=== PATIENT | female | born 1960 ===

== ENCOUNTER → 2020-03-04 09:19 | Outpatient (BNVA) | payer OTHER, SELFPAY | PROVIDERS: Visit Provider Physician Assistant | DX: Z76.89 Persons encountering health services in other specified circumstances (principal) ==

== ENCOUNTER 2020-09-15 16:52 | Emergency (ER) | payer OTHER, SELFPAY ==
--- NOTE | ~2020-09-15 | XR_ITS ---
EXAMINATION: RIGHT FOOT, LEFT FOOT CLINICAL INFORMATION: Bilateral foot pain COMPARISON: None TECHNIQUE: 3 views left foot, 3 views right foot FINDINGS: Mild pes cavum is present bilaterally. No significant arthritic changes are present. No fractures are seen. No evidence of ankle joint effusion. XR/XR foot RT min 3V IMPRESSION: No acute findings. Mild pes cavum is present
--- NOTE | ~2020-09-15 | XR_ITS ---
EXAMINATION: RIGHT FOOT, LEFT FOOT CLINICAL INFORMATION: Bilateral foot pain COMPARISON: None TECHNIQUE: 3 views left foot, 3 views right foot FINDINGS: Mild pes cavum is present bilaterally. No significant arthritic changes are present. No fractures are seen. No evidence of ankle joint effusion. XR/XR foot LT min 3V IMPRESSION: No acute findings. Mild pes cavum is present
[2020-09-15 17:21] VITALS: BP 160/64; PULSE 77; RESP 18; TEMP 36.8; O2SAT 98; BMI 28.3
--- NOTE | 2020-09-15 18:28 | ED.GENADULT ---
HPI - General Adult General Chief complaint: Extremity Injury, Lower Stated complaint: foot pain Time Seen by Provider: 09/15/20 18:02 History of Present Illness HPI narrative: Patient complains of bilateral foot pain for many many weeks worse over past few days, nursing notes said the pain is in her legs but her complaint is pain in the bottom of both feet without injury, no fever no numbness no weakness no rash Related Data Home Medications Medication Instructions Recorded Confirmed buspirone 30 mg tablet 30 mg PO BID 03/04/20 03/04/20 famotidine 20 mg tablet 20 mg PO BID 03/04/20 03/04/20 loratadine 10 mg capsule 10 mg PO DAILY 03/04/20 03/04/20 pantoprazole 40 mg tablet,delayed 40 mg PO DAILY 03/04/20 03/04/20 release trazodone 50 mg tablet 50 mg PO BEDTIME PRN 03/04/20 03/04/20 Previous Rx's Medication Instructions Recorded cyclobenzaprine 5 mg tablet 5 mg PO BEDTIME PRN 90 Days #90 tab 12/27/19 Allergies Allergy/AdvReac Type Severity Reaction Status Date / Time aspirin [ASA] Allergy Intermediate NAUSEA & Verified 09/15/20 17:43 VOMITING, stomach upset, nausea and vomiting Review of Systems Review of Systems: positive for bilateral foot pain Negatives are no fever no chills no weakness no headache no neck pain no back pain no radiating pain no numbness weakness or tingling no skin rash Yes all other systems are reviewed and are negative PMFSH Past Medical History Source: nursing notes reviewed Medical History (Updated 09/16/20 @ 00:01 by Milana Tom) Acid reflux Bloating Vocal cord anomaly Social History Social History (Updated 03/04/20 @ 13:28 by Amber Keating PA-C) Household Members Other:: alone Alcohol intake: never Advance Directives: No Advance Directives Information Provided: Yes Patient : No Current occupational status: unemployed Physical Exam Vital Signs: Vital Signs: Last Vital Signs Temp 98.2 F 09/15/20 17: Pulse 77 09/15/20 17: Resp 18 09/15/20 17: BP 160/64 H 09/15/20 17: Pulse Ox 98 09/15/20 17:21 Body Mass Index 28.3 general appearance no acute distress Head is normocephalic atraumatic Neck is supple nontender The back is supple full range of motion and nontender with no discomfort with movement The respiratory no distress Extremities full range of motion x4 The bilateral feet had tenderness on the soles of both feet, there were no wounds no redness no evidence of infection no discharge there is full range of motion in toes and ankle there is no swelling Course Course Course Narrative: x-rays of bilateral feet did not reveal any acute findings patient is advised she may have plantar fasciitis and to follow with a [employer] for further evaluation Discharge Plan Discharge Clinical Impression: Bilateral plantar fasciitis Patient Disposition: Home, Self-Care Additional Instructions: Follow with [employer] for further evaluations X-rays were normal Exam of the feet did not show any infections or wounds Return any time any worse condition or concerns You may need a referral from primary care doctor for [employer] visit Prescriptions: No Action cyclobenzaprine 5 mg tablet 5 mg PO BEDTIME PRN (Reason: muscle spasm) 90 Days Qty: 90 RF: 1 trazodone 50 mg tablet 50 mg PO BEDTIME PRNRF: 0 famotidine 20 mg tablet 20 mg PO BID RF: 0 pantoprazole 40 mg tablet,delayed release (DR/EC) 40 mg PO DAILY RF: 0 buspirone 30 mg tablet 30 mg PO BID RF: 0 loratadine 10 mg capsule 10 mg PO DAILY RF: 0 Referrals: Patrick Dean [Physician] - 2 days (Possible bilateral plantar fasciitis) Interventions: ED Discharge Assessment Last Done: 09/15/20 19:55 Discharge Date/Time: 09/15/20 19:56
== END 2020-09-15 19:56 | disposition home or self-care (01) ==
PROVIDERS: Emergency Provider Emergency Medicine; PCP Internal Medicine
DX: M72.2 Plantar fascial fibromatosis (principal)
CPT/HCPCS: 73630; 99283; 99284

== ENCOUNTER → 2020-10-13 14:42 | Outpatient (BNVA) | payer OTHER, SELFPAY | PROVIDERS: PCP Internal Medicine; Visit Provider Student in an Organized Health Care Education/Training Program | DX: M79.7 Fibromyalgia (principal) | CPT/HCPCS: 99212 ==

== ENCOUNTER 2020-10-21 18:34 | Emergency (ER) | payer OTHER, SELFPAY ==
--- NOTE | ~2020-10-21 | XR_ITS ---
EXAMINATION: XR CHEST CLINICAL INFORMATION: Cough and shortness of breath COMPARISON: 10/22/2019 TECHNIQUE: 2 views of the chest were obtained. FINDINGS: No significant abnormality is noted involving the heart, lungs, mediastinum, bony thorax or soft tissues. XR/XR chest 2V IMPRESSION: Unremarkable examination.
[2020-10-21 18:50] VITALS: BP 152/75; PULSE 75; RESP 18; TEMP 36.8; O2SAT 100; BMI 27.4
[2020-10-21 19:14] LABS: COVID-19 Test Negative (Negative)
--- NOTE | 2020-10-21 20:31 | ED.URI ---
HPI - URI/Sore Throat General Chief Complaint: Upper Respiratory Symptoms Stated Complaint: Cough/asthma Time Seen by Provider: 10/21/20 19:58 Source: patient Mode of arrival: ambulatory Limitations: no limitations History of Present Illness HPI Narrative: 59 y/o female with history of asthma, fibromyalgia, GERD, who presents to the ER wtih 3 days of sore throat, dry cough, and nasal congestion. She is fully vaccinated against COVID-19. She has no fever or chills. She has mild SOB but no HURT or chest pain. She has no known sick contacts. MD elicited complaint: cough, sore throat and nasal congestion Onset (ago): day(s) (3) Consistency: intermittent Severity: moderate Description of mucous: clear and watery Able to tolerate fluids by mouth: Yes Exacerbating factors: nothing Relieving factors: OTC cold medicine Associated symptoms: headache, nasal congestion, sore throat, cough and shortness of breath Treatments prior to arrival: none Related Data Home Medications Medication Instructions Recorded Confirmed buspirone 30 mg tablet 30 mg PO BID 03/04/20 03/04/20 famotidine 20 mg tablet 20 mg PO BID 03/04/20 03/04/20 loratadine 10 mg capsule 10 mg PO DAILY 03/04/20 03/04/20 pantoprazole 40 mg tablet,delayed 40 mg PO DAILY 03/04/20 03/04/20 release trazodone 50 mg tablet 50 mg PO BEDTIME PRN 03/04/20 03/04/20 risperidone 2 mg tablet (Risperdal) 2 mg PO DAILY 10/13/20 Previous Rx's Medication Instructions Recorded cyclobenzaprine 5 mg tablet 5 mg PO BEDTIME PRN 90 Days #90 tab 10/13/20 hydrocodone-homatropine 5 mg-1.5 5 ml PO Q6H PRN #60 ml 10/21/20 mg/5 mL (5 mL) oral syrup (Hycodan) Allergies Allergy/AdvReac Type Severity Reaction Status Date / Time aspirin [ASA] Allergy Intermediate NAUSEA & Verified 10/21/20 18:50 VOMITING, stomach upset, nausea and vomiting Review of Systems Review of Systems: Constitutional: No Fever, No Chills ENT/Mouth: + sore throat, + Rhinorrhea, No Swallowing Difficulty Cardiovascular: No Chest Pain, + SOB, No Orthopnea, No Edema Respiratory: + Cough, No Sputum, No Wheezing, No dyspnea Gastrointestinal: No Nausea, No Vomiting, No Diarrhea, No abdominal Pain Musculoskeletal: No joint pain, No Myalgias Skin: No Skin Lesions, No rash Neuro: No Weakness, No Numbness, No Dizziness, + Headache Heme/Lymph: No Bruising, No Lymphadenopathy PMFSH Past Medical History Medical History Acid reflux Asthma Bloating Vocal cord anomaly Social History Social History (Updated 10/13/20 @ 14:54 by Mio Petersen LPN) Household Members Other:: alone Alcohol intake: never Patient Tobacco Use Status: Former Tobacco user Tobacco use type: Cigarette Years Smoked: quit 12 years ago Advance Directives: No Advance Directives Information Provided: Yes Patient : No Current occupational status: unemployed Physical Exam Vital Signs: Vital Signs: Last Vital Signs Temp 98.3 F 10/21/20 18:50 Pulse 75 10/21/20 18:50 Resp 18 10/21/20 18:50 BP 152/75 H 10/21/20 18:50 Pulse Ox 100 10/21/20 18:50 Body Mass Index 27.4 Appearance: Alert. Oriented X3. No acute distress. Eyes: Pupils equal, round and reactive to light. ENT: Posterior oropharynx with moderate generalized erythema, tonsils are enlarged without exudate. Uvula midlinel. Nasal congestion noted with erythematous nasal turbinates. Neck: Normal inspection. Neck supple. CVS: Normal heart rate and rhythm. Pulses normal. Respiratory: No respiratory distress. Breath sounds normal. Skin: Skin warm and dry. Normal skin color. Normal skin turgor. No rashes. Extremities: No lower extremity edema. Neuro: Oriented X 3. No motor deficit. No sensory deficit. Course Course Course Narrative: 59 y/o female presenting with 3 days of URI symptoms. Vitals are stable with SpO2 100%. Lungs are clear on exam with no dyspnea. CXR is clear. COVID and Strep are negative. Clinical presentation is consistent with acute viral syndrome. Discussed treatment and supportive care. She is stable for d/c home with antitussive and OTC cold/flu medications. F/u with PCP recommended. MDM - URI/Sore Throat Lab Data Labs: Lab Results 10/21/20 10/21/20 Range/Units 18:56 20:29 COVID-19 (NAILA) Negative (Negative) COVID-19 Clin Com See Note S. pyogenes GrpA XAVIER Negative (Negative) Critical Care Time Critical Care Time Critical Care Time: No Discharge Plan Discharge Clinical Impression: Viral infection Patient Disposition: Home, Self-Care Instructions: Viral Syndrome (ED) Additional Instructions: Your COVID test and Strep tests were negative. Your chest x-ray was normal. Your symptoms are most likely viral. Recommend rest, drink plenty of fluids. Use warm salt water gargles several times per day for sore throat. Take over the counter cold/flu medications as needed for your symptoms. Take Tylenol and/or Motrin as needed for fevers and body aches. Follow up with your doctor this week. If you shortness of breath worsens , if you develop difficulty breathing or any other concerning symptom come back to the ER for further evaluation. Prescriptions: New hydrocodone-homatropine [Hycodan] 5-1.5 mg/5 mL (5 mL) syrup 5 ml PO Q6H PRN (Reason: cough) Qty: 60 RF: 0 No Action trazodone 50 mg tablet 50 mg PO BEDTIME PRNRF: 0 famotidine 20 mg tablet 20 mg PO BID RF: 0 pantoprazole 40 mg tablet,delayed release (DR/EC) 40 mg PO DAILY RF: 0 buspirone 30 mg tablet 30 mg PO BID RF: 0 loratadine 10 mg capsule 10 mg PO DAILY RF: 0 risperidone [Risperdal] 2 mg tablet 2 mg PO DAILY RF: 0 cyclobenzaprine 5 mg tablet 5 mg PO BEDTIME PRN (Reason: muscle spasm) 90 Days Qty: 90 RF: 3
[2020-10-21 20:47] LABS: IDNOW Serial# 08D9AD1C; Strep A Nucleic Acid Negative (Negative)
== END 2020-10-21 21:22 | disposition home or self-care (01) ==
PROVIDERS: Physician Assistant; Emergency Provider Emergency Medicine Emergency Medical Services; PCP Internal Medicine
DX: B34.9 Viral infection, unspecified (principal); Z20.822 Contact with and (suspected) exposure to COVID-19; J02.9 Acute pharyngitis, unspecified; R06.02 Shortness of breath
CPT/HCPCS: 36415; 71046; 87635; 87651; 99283

== ENCOUNTER 2021-01-04 13:41 | Outpatient (REF) | payer OTHER, SELFPAY ==
[2021-01-04 14:03] LABS: COVID-19 Test Negative (Negative)
== END 2021-01-04 13:42 | disposition home or self-care (01) ==
LOC: HO.LAB 13:41
PROVIDERS: PCP Internal Medicine; Visit Provider Internal Medicine
DX: Z20.822 Contact with and (suspected) exposure to COVID-19 (principal)
CPT/HCPCS: 36415; 87635; C9803

== ENCOUNTER 2021-03-27 12:33 | Emergency (ER) | payer OTHER, SELFPAY ==
[2021-03-27 14:07] VITALS: BP 161/70; PULSE 65; RESP 18; TEMP 36.6; O2SAT 96; BMI 27.4
[2021-03-27 14:48] LABS: Appearance Urine CLEAR; Color Urine YELLOW; Glucose Urine UA NEG (NEG); Leukocyte Esterase Urine NEG (NEG); Nitrite Urine NEG (NEG); Specific Gravity - Urine >= 1.030 (1.005-1.025); Urine Blood NEG (NEG); Urine Ketones NEG (NEG); Urine Protein NEG (NEG-TRACE)
[2021-03-27 17:13] VITALS: BP 154/74; PULSE 67; TEMP 37; O2SAT 97
--- NOTE | 2021-03-27 17:13 | ED_ITS ---
HPI - Female Genitourinary General Chief complaint: Urogenital-Female Stated complaint: groin pain Time Seen by Provider: 03/27/21 17:13 Source: patient Mode of arrival: ambulatory Limitations: no limitations History of Present Illness HPI Narrative: Patient has been urinating frequently nondiabetic for last 4 days no burning sensation no flank pain no fever no chills no blood in the urine patient also has history of constipation now complaining of rectal pain with history of hemorrhoids also no bleeding Related Data Home Medications Medication Instructions Recorded Confirmed buspirone 30 mg tablet 30 mg PO BID 03/04/20 03/04/20 famotidine 20 mg tablet 20 mg PO BID 03/04/20 03/04/20 loratadine 10 mg capsule 10 mg PO DAILY 03/04/20 03/04/20 pantoprazole 40 mg tablet,delayed 40 mg PO DAILY 03/04/20 03/04/20 release trazodone 50 mg tablet 50 mg PO BEDTIME PRN 03/04/20 03/04/20 risperidone 2 mg tablet (Risperdal) 2 mg PO DAILY 10/13/20 Previous Rx's Medication Instructions Recorded cyclobenzaprine 5 mg tablet 5 mg PO BEDTIME PRN 90 Days #90 tab 10/13/20 hydrocodone-homatropine 5 mg-1.5 5 ml PO Q6H PRN #60 ml 10/21/20 mg/5 mL (5 mL) oral syrup (Hycodan) docusate sodium 100 mg capsule 200 mg PO DAILY #60 cap 03/27/21 (Colace) hydrocortisone acetate 25 mg 25 mg CO BID #12 ea 03/27/21 rectal suppository (Anusol-HC) polyethylene glycol 3350 17 17 g PO DAILY #510 g 03/27/21 gram/dose oral powder (Miralax) Allergies Allergy/AdvReac Type Severity Reaction Status Date / Time aspirin [ASA] Allergy Intermediate NAUSEA & Verified 03/27/21 14:06 VOMITING, stomach upset, nausea and vomiting Review of Systems Review of Systems: Yes all other systems are reviewed and are negative PMFSH Past Medical History Medical History Acid reflux Asthma Bloating Vocal cord anomaly Social History Social History Household Members Other:: alone Alcohol intake: never Patient Tobacco Use Status: Former Tobacco user Tobacco use type: Cigarette Years Smoked: quit 12 years ago Advance Directives: No Advance Directives Information Provided: Yes Current occupational status: unemployed Physical Exam Vital Signs: Vital Signs: Last Vital Signs Temp 98.6 F 03/27/21 17:13 Pulse 67 03/27/21 17:13 Resp 18 03/27/21 14:07 BP 154/74 H 03/27/21 17:13 Pulse Ox 97 03/27/21 17:13 BMI result Body Mass Index 27.4 Appearance: Alert. Oriented X3. No acute distress. ENT: Pharynx normal. Oral Mucosa moist Neck: Normal inspection. Neck supple. CVS: Normal heart rate and rhythm. Pulses normal. Respiratory: No respiratory distress. Equal air entry bilateral, Abdomen: Soft and nontender. Bowel sounds are present, no mass palpable, no CVA tenderness rectal: Nonbleeding internal hemorrhoid no tenderness Neuro: Oriented X 3. MDM - Female Genitourinary MDM Narrative Medical decision making narrative: Patient urine is negative for UTI a nondiabetic POCs : 88 , rectal exam showed internal hemorrhoids nonbleeding with history of constipation discharge patient home on stool softener and under source positive Lab Data Attestation: I reviewed the patient's lab results. Labs: Lab Results 03/27/21 Range/Units 14:34 Urine Color YELLOW Urine Appearance CLEAR Urine pH 6.0 (5.0-8.0) Ur Specific [place] >= 1.030 H (1.005-1.025) Urine Protein NEG (NEG-TRACE) MG/DL Urine Glucose (UA) NEG (NEG) MG/DL Urine Ketones NEG (NEG) MG/DL Urine Blood NEG (NEG) Urine Nitrite NEG (NEG) Ur Leukocyte Esterase NEG (NEG) Discharge Plan Discharge Clinical Impression: Hemorrhoids, internal Patient Disposition: Home, Self-Care Instructions: Hemorrhoids (ED) Additional Instructions: Avoid constipation take stool softener as prescribed Suppositories for hemorrhoids Prescriptions: New hydrocortisone acetate [Anusol-HC] 25 mg suppository 25 mg CO BID Qty: 12 RF: 0 docusate sodium [Colace] 100 mg capsule 200 mg PO DAILY Qty: 60 RF: 0 polyethylene glycol 3350 [Miralax] 17 gram/dose powder 17 g PO DAILY Qty: 510 RF: 0 No Action hydrocodone-homatropine [Hycodan] 5-1.5 mg/5 mL (5 mL) syrup 5 ml PO Q6H PRN (Reason: cough) Qty: 60 RF: 0 trazodone 50 mg tablet 50 mg PO BEDTIME PRNRF: 0 famotidine 20 mg tablet 20 mg PO BID RF: 0 pantoprazole 40 mg tablet,delayed release (DR/EC) 40 mg PO DAILY RF: 0 buspirone 30 mg tablet 30 mg PO BID RF: 0 loratadine 10 mg capsule 10 mg PO DAILY RF: 0 risperidone [Risperdal] 2 mg tablet 2 mg PO DAILY RF: 0 cyclobenzaprine 5 mg tablet 5 mg PO BEDTIME PRN (Reason: muscle spasm) 90 Days Qty: 90 RF: 3
[2021-03-27 17:30] LABS: Glucose, Whole Blood 88 mg/dL (60-115)
== END 2021-03-27 18:03 | disposition home or self-care (01) ==
PROVIDERS: Emergency Provider Internal Medicine; PCP Internal Medicine
DX: K64.8 Other hemorrhoids (principal); R10.30 Lower abdominal pain, unspecified; Z79.899 Other long term (current) drug therapy
CPT/HCPCS: 81003; 82947; 99283

== ENCOUNTER 2021-04-04 16:16 | Emergency (ER) | payer OTHER, SELFPAY ==
--- NOTE | ~2021-04-04 | CT_ITS ---
EXAMINATION: CT ABDOMEN AND PELVIS WITH CONTRAST CLINICAL INFORMATION: Lower abdominal and back pain COMPARISON: CT abdomen pelvis 09/10/2018 TECHNIQUE: Multidetector volumetric images were obtained from the superior aspect of the liver through the pubic symphysis following administration 85 mL of Omnipaque 350 intravenous contrast. Sagittal and coronal reformatted images were obtained on the technologist's workstation. Oral contrast: No This CT examination was performed using dose optimization techniques as appropriate, variously including the following: *Automated exposure control *Adjustment of mA and/or kV according to patient size (this includes techniques or standardized protocols for targeted exams where dose is matched to indication/reason for exam; i.e. extremities or head) *Use of iterative reconstruction technique DLP: 512 mGy-cm FINDINGS: LUNG BASES: Calcified granuloma in the right lung base. ABDOMINAL AND PELVIC WALL: Small fat-containing umbilical hernia. LIVER AND BILIARY TREE: Unremarkable GALLBLADDER: Unremarkable PANCREAS: Unremarkable SPLEEN: Unremarkable ADRENAL GLANDS: Unremarkable. KIDNEYS AND URETERS: Unremarkable. UPPER GASTROINTESTINAL TRACT: Small hiatal hernia. VASCULAR: Unremarkable. LYMPH NODES: No lymphadenopathy. BLADDER: Unremarkable PELVIC VISCERA: 2.7 cm unilocular right ovarian cyst, decreased in size from 2018 where it measured 3.1 cm, almost certainly benign. Status post hysterectomy. LOWER GASTROINTESTINAL TRACT: Colonic diverticulosis. In the left aspect of the pelvis is subtle symmetric thickening of the fascia with questionable infiltration of the pericolonic fat abutting the sigmoid colon, however not significantly changed from prior. No organized fluid collection. No extraluminal air. Normal appendix. OSSEOUS STRUCTURES: Unremarkable CT/CT abdomen pelvis w con IMPRESSION: Colonic diverticulosis. In the left aspect of the pelvis is subtle symmetric thickening of the fascia with questionable infiltration of the pericolonic fat abutting the sigmoid colon, however not significantly changed from prior. Differential considerations could include a subtle mild uncomplicated diverticulitis or sequelae of postoperative change as there is evidence of prior hysterectomy. Recommend correlation with clinical symptoms. 2.7 cm unilocular right ovarian cyst, decreased in size from 2018 where it measured 3.1 cm, almost certainly benign. No follow-up imaging recommended.
[2021-04-04 16:29] VITALS: BP 153/72; PULSE 74; RESP 16; TEMP 37; O2SAT 100; BMI 27.4
--- NOTE | 2021-04-04 19:56 | ED_ITS ---
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 Pain started about 2 weeks ago, patient was evaluated by her PCP and in the emergency department about week ago patient was prescribed amoxicillin by her PCP for unclear reason, and was diagnosed with noncomplicated internal hemorrhoid a week ago in the emergency department, symptoms started about 2 weeks ago, with no improvement of the pain, describes the pain as constant and severe for 10/10, dull aching, pain is localized to the low abdomen and the lower back and her rectum, patient been having soft stool with no blood in it, no dysuria or frequency urination. The only surgical history is hysterectomy. Related Data Home Medications Medication Instructions Recorded Confirmed buspirone 30 mg tablet 30 mg PO BID 03/04/20 03/04/20 famotidine 20 mg tablet 20 mg PO BID 03/04/20 03/04/20 loratadine 10 mg capsule 10 mg PO DAILY 03/04/20 03/04/20 pantoprazole 40 mg tablet,delayed 40 mg PO DAILY 03/04/20 03/04/20 release trazodone 50 mg tablet 50 mg PO BEDTIME PRN 03/04/20 03/04/20 risperidone 2 mg tablet (Risperdal) 2 mg PO DAILY 10/13/20 Previous Rx's Medication Instructions Recorded cyclobenzaprine 5 mg tablet 5 mg PO BEDTIME PRN 90 Days #90 tab 10/13/20 hydrocodone-homatropine 5 mg-1.5 5 ml PO Q6H PRN #60 ml 10/21/20 mg/5 mL (5 mL) oral syrup (Hycodan) docusate sodium 100 mg capsule 200 mg PO DAILY #60 cap 03/27/21 (Colace) hydrocortisone acetate 25 mg 25 mg [place] BID #12 ea 03/27/21 rectal suppository (Anusol-HC) polyethylene glycol 3350 17 17 g PO DAILY #510 g 03/27/21 gram/dose oral powder (Miralax) Allergies Allergy/AdvReac Type Severity Reaction Status Date / Time aspirin [ASA] Allergy Intermediate NAUSEA & Verified 03/27/21 14:06 VOMITING, stomach upset, nausea and vomiting Review of Systems Review of Systems: All other systems are reviewed and are negative Constitutional: Reports as per HPI and Reports no additional constitutional complaints Eyes: Reports as per HPI and Reports no additional eye complaints Reports system reviewed and no additional complaints, except as documented Cardiovascular: Reports as per HPI and Reports no additional cardiovascular complaints Respiratory: Reports as per HPI and Reports no additional respiratory complaints Gastrointestinal: Reports as per HPI and Reports no additional gastrointestinal complaints Genitourinary: Reports no additional female genitourinary complaints Musculoskeletal: Reports no additional musculoskeletal complaints Skin/Breast: Reports system reviewed and no additional complaints, except as docu Psychiatric: Reports no additional psychiatric complaints Endocrine: Reports no additional endocrine complaints Hematologic/Lymphatic: Reports no additional hematologic/lymphatic complaints Allergic/Immunologic: Reports no additional allergic/immunologic complaints Reports system reviewed and no additional complaints, except as documented and Reports Abnormal speech present [facility] Past Medical History Medical History Acid reflux Asthma Bloating Vocal cord anomaly Social History Social History Household Members Other:: alone Alcohol intake: never Patient Tobacco Use Status: Former Tobacco user Tobacco use type: Cigarette Years Smoked: quit 12 years ago Advance Directives: No Advance Directives Information Provided: No Patient : No Current occupational status: unemployed Physical Exam Vital Signs: Vital Signs: Last Vital Signs Temp 98.6 F 04/04/21 16:29 Pulse 74 04/04/21 16:29 Resp 16 04/04/21 16:29 BP 153/72 H 04/04/21 16:29 Pulse Ox 100 04/04/21 16:29 BMI result Body Mass Index 27.4 Vital signs have been reviewed as appeared to be correct. Blood pressure normal. Heart rate normal. Respiration rate normal. Temperature normal. Oxygen saturation normal. Appearance: Alert. Oriented X3. No acute distress. Head: Normal external exam. Normocephalic. Atraumatic. No Francis signs noted. No raccoon eyes noted Eyes: PERRLA. EOMI. Conjunctiva and sclera normal. Eyelids normal. ENT: TM's Normal. Pharynx normal. Uvula midline. Moist mucous membranes. No trismus noted. No drooling noted. No muffled voice noted. Neck: Normal inspection. Neck supple. FROM. No adenopathy. Thyroid Normal. No meningeal signs. No neck mass noted. CVS: Normal heart rate and rhythm. Heart sound normal. No murmurs noted. Pulses normal throughout. Respiratory: No respiratory distress. Painless inspiration. Breath sounds normal. No wheezes/rales/rhonchi noted. Chest nontender. No accessory muscle usage noted or decreased air movement noted. Abdomen: Soft and nontender. Bowel sounds normal in all 4 quadrants. No distention noted. No organomegaly noted. No visible injury noted. Back: No CVA tenderness. Full range of motion noted. Skin: Skin warm and dry. Normal skin color. Normal skin turgor. No rashes/lesions/lacerations noted. Extremities: No lower extremity edema. Extremities exhibit normal range of motion. Extremities nontender. Neuro: Oriented X 3. Cranial nerve exam: II-XII are grossly intact No motor deficit. No sensory deficit. Reflexes normal. Course Course Course Narrative: Assessment and plan. 60-year-old female came in with lower abdominal/low back/rectal pain for 2 weeks, patient has been evaluated by her PCP and in the emergency room twice, patient had blood workup and CT scan of the abdomen pelvis shows no acute pathology may be questionable subtle diverticulitis which is very unlikely patient with normal WBCs, and patient already is on Augmentin by her PCP. Patient was instructed to follow-up with her resource recovery specialist may be to schedule colonoscopy. MDM - Female Genitourinary Medical Records Attestation: I reviewed the patient's medical records. Lab Data Attestation: I reviewed the patient's lab results. Result diagrams: 04/04/21 20:39 04/04/21 20:39 Labs: Lab Results 04/04/21 04/04/21 04/04/21 Range/Units 20:39 20:39 21:50 WBC 7.4 (4.8-10.8) X10*3/uL RBC 4.34 (4.20-5.50) X10*6/uL Hgb 13.1 (12.0-16.0) g/dl Hct 39.5 (37.0-47.0) % MCV 91.0 (80.0-98.0) fL MCH 30.2 (27.0-33.0) pg MCHC 33.2 (31.0-35.0) g/dl RDW 13.2 (11.0-16.0) % Plt Count 269 (160-400) X10*3/uL MPV 10.0 (9.4-12.3) fL Immature Gran % (Auto) 0.3 (0.0-0.4) % Neut % (Auto) 50.2 (45-73) % Lymph % (Auto) 34.6 (20-40) % Prentiss % (Auto) 11.2 H (2-11) % Eos % (Auto) 3.2 (0-4) % Baso % (Auto) 0.5 (0-2) % Lymph # (Auto) 2.6 (1.2-4.9) X10*3/uL Prentiss # (Auto) 0.8 (0.1-1.2) X10*3/uL Eos # (Auto) 0.2 (0.0-0.4) X10*3/uL Baso # (Auto) 0.0 (0.0-0.2) X10*3/uL Abs Immat Gran (auto) 0.02 (0.00-0.03) X10*3/uL Absolute Neuts (auto) 3.7 (2.0-8.3) x10*3/uL Absolute Nucleated RBC 0.000 (0.0-0.012) X10*3/uL Nucleated RBC % (auto) 0.0 (0.0-0.2) /100WBC Sodium 140 (135-145) mmol/L Potassium 4.3 (3.3-5.1) mmol/L Chloride 105 (96-108) mmol/L Carbon Dioxide 29 (22-29) mmol/L Anion Gap 10 L (12-20) BUN 13 (9-16) mg/dL Creatinine 0.82 (0.5-1.4) mg/dL Estim Creat Clear Calc 68.6 Estimated GFR > 60 Random Glucose 89 (60-115) mg/dL Calcium 9.7 (8.4-10.2) mg/dL Total Bilirubin < 0.2 (0.0-1.0) mg/dL Direct Bilirubin < 0.2 (0.0-0.5) mg/dL AST 21 (5-31) U/L ALT 25 (0-31) U/L Alkaline Phosphatase 92 (39-117) U/L Total Protein 8.0 (6.5-8.0) g/dL Albumin 4.1 (3.5-5.0) g/dL Lipase 58 (8-78) U/L Urine Color YELLOW Urine Appearance CLEAR Urine pH 6.0 (5.0-8.0) Ur Specific Molino 1.025 (1.005-1.025) Urine Protein NEG (NEG-TRACE) MG/DL Urine Glucose (UA) NEG (NEG) MG/DL Urine Ketones NEG (NEG) MG/DL Urine Blood 1+ H (NEG) Urine Nitrite NEG (NEG) Ur Leukocyte Esterase NEG (NEG) Urine RBC 1-4 (0) /HPF Urine WBC 0-2 (0-4) /HPF Ur Squamous Epith Cells TRACE /LPF Urine Bacteria NONE /LPF Urine Mucus TRACE /LPF Imaging Data CT scan - abdomen: Attestation: I personally reviewed and interpreted this imaging study as follows: Radiologist's impression: Colonic diverticulosis. In the left aspect of the pelvis is subtle symmetric thickening of the fascia with questionable infiltration of the pericolonic fat abutting the sigmoid colon, however not significantly changed from prior. Differential considerations could include a subtle mild uncomplicated diverticulitis or sequelae of postoperative change as there is evidence of prior hysterectomy. Recommend correlation with clinical symptoms. ? 2.7 cm unilocular right ovarian cyst, decreased in size from 2018 where it measured 3.1 cm, almost certainly benign. No follow-up imaging recommended. Discharge Plan Discharge Clinical Impression: Back pain, Fibromyalgia Patient Disposition: Home, Self-Care Instructions: Back Pain (ED) Prescriptions: No Action hydrocodone-homatropine [Hycodan] 5-1.5 mg/5 mL (5 mL) syrup 5 ml PO Q6H PRN (Reason: cough) Qty: 60 RF: 0 hydrocortisone acetate [Anusol-HC] 25 mg suppository 25 mg [place] BID Qty: 12 RF: 0 docusate sodium [Colace] 100 mg capsule 200 mg PO DAILY Qty: 60 RF: 0 polyethylene glycol 3350 [Miralax] 17 gram/dose powder 17 g PO DAILY Qty: 510 RF: 0 trazodone 50 mg tablet 50 mg PO BEDTIME PRNRF: 0 famotidine 20 mg tablet 20 mg PO BID RF: 0 pantoprazole 40 mg tablet,delayed release (DR/EC) 40 mg PO DAILY RF: 0 buspirone 30 mg tablet 30 mg PO BID RF: 0 loratadine 10 mg capsule 10 mg PO DAILY RF: 0 risperidone [Risperdal] 2 mg tablet 2 mg PO DAILY RF: 0 cyclobenzaprine 5 mg tablet 5 mg PO BEDTIME PRN (Reason: muscle spasm) 90 Days Qty: 90 RF: 3 Referrals: Daphne Almanza MD [Primary Care Provider] - 2 days
[2021-04-04 20:43] LABS: MANUAL DIFF FLAG NO
[2021-04-04 20:45] LABS: Basophils Percent Auto 0.5 % (0-2); Eosinophils Absolute Auto 0.2 X10*3/uL (0.0-0.4); Eosinophils Percent Auto 3.2 % (0-4); Hematocrit 39.5 % (37.0-47.0); Hemoglobin 13.1 g/dl (12.0-16.0); Imm Gran Abs Auto 0.02 X10*3/uL (0.00-0.03); Imm Gran Pct Auto 0.3 % (0.0-0.4); Lymphocytes Absolute Auto 2.6 X10*3/uL (1.2-4.9); Lymphocytes Percent Auto 34.6 % (20-40); Mean Corpuscular HGB Conc 33.2 g/dl (31.0-35.0); Mean Corpuscular Hemoglobin 30.2 pg (27.0-33.0); Monocytes Absolute Auto 0.8 X10*3/uL (0.1-1.2); Monocytes Percent Auto 11.2 % (2-11); Neutrophils Absolute Auto 3.7 x10*3/uL (2.0-8.3); Neutrophils Percent Auto 50.2 % (45-73); Platelet Count 269 X10*3/uL (160-400); Red Blood Count 4.34 X10*6/uL (4.20-5.50); Red Cell Distribution Width 13.2 % (11.0-16.0); White Blood Count 7.4 X10*3/uL (4.8-10.8)
[2021-04-04 21:18] LABS: Alanine Aminotransferase 25 U/L (0-31); Albumin Level 4.1 g/dL (3.5-5.0); Alkaline Phosphatase 92 U/L (39-117); Anion Gap 10 (12-20); Aspartate Amino Transferase 21 U/L (5-31); Bilirubin Direct < 0.2 mg/dL (0.0-0.5); Bilirubin Total < 0.2 mg/dL (0.0-1.0); Blood Urea Nitrogen 13 mg/dL (9-16); Calcium 9.7 mg/dL (8.4-10.2); Carbon Dioxide 29 mmol/L (22-29); Chloride 105 mmol/L (96-108); Creatinine Clr Calc Pharmacy 68.6; Estimated Glomerular Filt Rate > 60; Glucose Random 89 mg/dL (60-115); Lipase 58 U/L (8-78); Potassium 4.3 mmol/L (3.3-5.1); Sodium 140 mmol/L (135-145)
[2021-04-04 21:58] LABS: Appearance Urine CLEAR; Color Urine YELLOW; Glucose Urine UA NEG (NEG); Leukocyte Esterase Urine NEG (NEG); Nitrite Urine NEG (NEG); Specific Gravity - Urine 1.025 (1.005-1.025); UACC Culture Trigger NO; Urine Blood 1+ (NEG); Urine Ketones NEG (NEG); Urine Protein NEG (NEG-TRACE)
[2021-04-04] MEDS: iohexoL 350 MG/ML 100 ML INFUS..BTL IV (22:08)
[2021-04-04 22:17] LABS: Mucus Urine TRACE /LPF; Squamous Epithelial Cell Urine TRACE /LPF; WBC Urine 0-2 /HPF (0-4)
[2021-04-04 23:23] VITALS: BP 147/77; PULSE 60; RESP 16; O2SAT 98
== END 2021-04-04 23:26 | disposition home or self-care (01) ==
PROVIDERS: Emergency Provider Emergency Medicine; PCP Internal Medicine
DX: M54.50 Low back pain, unspecified (principal); M79.7 Fibromyalgia; F17.210 Nicotine dependence, cigarettes, uncomplicated; Z71.6 Tobacco abuse counseling; Z79.899 Other long term (current) drug therapy
CPT/HCPCS: 36415; 74177; 80048; 80076; 81001; 83690; 85025; 99284; Q9967

== ENCOUNTER 2021-05-26 22:23 | Emergency (ER) | payer OTHER, SELFPAY ==
[2021-05-26 23:05] VITALS: BP 144/60; PULSE 60; RESP 18; TEMP 36.8; O2SAT 99; BMI 27.4
--- NOTE | 2021-05-26 23:26 | ED_ITS ---
HPI - General Adult General Chief complaint: General Medical Stated complaint: rectal pain Time Seen by Provider: 05/26/21 23:10 Source: patient and certified court interpreter Mode of arrival: ambulatory Limitations: no limitations and language barrier History of Present Illness HPI narrative: Patient is a 60 year old female presenting to the emergency department today with hemorrhoid pain. Patient states that she has been dealing with hemorrhoid pain consistently and can't get into her GI doctor until June. Patient states that she has been cleaning it in the bath tub and is concerned that something needs to be done with it. Patient denies any dizziness, lightheadedness, abdominal pain, nausea, vomiting, fever, chills, blurry vision, double vision, loss of vision, chest pain, difficulty breathing, shortness of breath, back pain, night sweats, pain with urination, increased urinary frequency, increased urinary urgency, blood in her urine or stool, syncope or a near syncopal episode, recent trauma or falls, bowel incontinence, bladder incontinence, bowel retention, bladder retention, or any other complaints at this time. Related Data Home Medications Medication Instructions Recorded Confirmed buspirone 30 mg tablet 30 mg PO BID 03/04/20 03/04/20 famotidine 20 mg tablet 20 mg PO BID 03/04/20 03/04/20 loratadine 10 mg capsule 10 mg PO DAILY 03/04/20 03/04/20 pantoprazole 40 mg tablet,delayed 40 mg PO DAILY 03/04/20 03/04/20 release trazodone 50 mg tablet 50 mg PO BEDTIME PRN 03/04/20 03/04/20 risperidone 2 mg tablet (Risperdal) 2 mg PO DAILY 10/13/20 Previous Rx's Medication Instructions Recorded cyclobenzaprine 5 mg tablet 5 mg PO BEDTIME PRN 90 Days #90 tab 10/13/20 hydrocodone-homatropine 5 mg-1.5 5 ml PO Q6H PRN #60 ml 10/21/20 mg/5 mL (5 mL) oral syrup (Hycodan) docusate sodium 100 mg capsule 200 mg PO DAILY #60 cap 03/27/21 (Colace) hydrocortisone acetate 25 mg 25 mg [place] BID #12 ea 03/27/21 rectal suppository (Anusol-HC) polyethylene glycol 3350 17 17 g PO DAILY #510 g 03/27/21 gram/dose oral powder (Miralax) Allergies Allergy/AdvReac Type Severity Reaction Status Date / Time aspirin [ASA] Allergy Intermediate NAUSEA & Verified 05/26/21 23:05 VOMITING, stomach upset, nausea and vomiting Review of Systems Constitutional: Constitutional: Reports no additional constitutional complaints, Denies chills, Denies fever(s) and Denies night sweats Eyes: Eyes: Reports no additional eye complaints, Denies blurry vision, Denies change in vision, Denies diplopia, Denies eye discharge, Denies loss of vision and Denies eye pain ENT: Denies dizziness Cardiovascular: Cardiovascular: Reports no additional cardiovascular complaints, Denies chest pain, Denies lightheadedness, Denies Loss of Consciousness and Denies dyspnea Respiratory: Respiratory: Reports no additional respiratory complaints and Denies dyspnea Gastrointestinal: Gastrointestinal: Reports no additional gastrointestinal complaints, Denies abdominal pain, Denies melena, Denies hematochezia, Denies change in bowel habits and Denies change in stool character Comments: hemorrhoid pain Genitourinary: Genitourinary: Denies hematuria, Denies urinary frequency, Denies dysuria, Denies urinary incontinence, Denies urinary hesitancy and Denies urinary urgency Musculoskeletal: Musculoskeletal: Reports no additional musculoskeletal complaints, Denies numbness and Denies tingling Neurologic: Denies dizziness, Denies loss of vision, Denies numbness and Denies tingling Psychiatric: Psychiatric: Reports no additional psychiatric complaints Endocrine: Endocrine: Reports no additional endocrine complaints Hematologic/Lymphatic: Hematologic/Lymphatic: Reports no additional hematologic/lymphatic complaints Allergic/Immunologic: Allergic/Immunologic: Reports no additional allergic/immunologic complaints [facility] Past Medical History Attestation statement: The following information was validated with the patient. Source: old records reviewed Medical History Acid reflux Asthma Bloating Vocal cord anomaly Social History Social History Household Members Other:: alone Alcohol intake: never Patient Tobacco Use Status: Former Tobacco user Tobacco use type: Cigarette Years Smoked: quit 12 years ago Advance Directives: No Advance Directives Information Provided: Yes Patient : No Current occupational status: unemployed Physical Exam ED Vital Signs: Vital Signs - 24 hr 05/26/21 23:05 Temperature 98.3 F Pulse Rate 60 Respiratory Rate 18 Blood Pressure 144/60 H Pulse Oximetry 99 BMI result Body Mass Index 27.4 Const General: cooperative, no acute distress, alert and awake Nutritional Appearance: well nourished Orientation/consciousness: patient oriented x3 Limitations: no limitations HENMT Head: Yes normal to inspection and Yes atraumatic Ears: hearing grossly normal bilaterally and external ears normal General nose exam: Normal external nose present, no nasal discharge noted and no epistaxis Face and sinus: Yes normal facial exam, No abrasion and No laceration Mouth: Normal oral and palatal mucosa present, no drooling and no muffled voice Eyes General: appearance normal, both eyes and all related structures Periorbital: periorbital findings normal Eyelids: Yes eyelids normal Conjunctivae: conjunctivae normal Pupils: Equal, round and reactive pupils present EOM: EOMs intact bilaterally Neck Neck: Yes normal visual inspection, Yes full ROM and Yes no lymphadenopathy Chest Chest palpation & inspection: normal inspection of the chest Resp Effort & Inspection: normal respiratory effort and able to speak in complete sentences GI Inspection: Yes normal to inspection Rectal Exam - Female: External hemorrhoid(s) present (no active bleeding, no signs of strangulation) Neuro General: patient oriented x3 and moves all extremities Cranial nerves: Yes Equal, round and reactive pupils present Cognition (Neuro): normal cognition Motor exam (neuro): 5/5 motor strength present throughout Sensory Exam: Normal double simultaneous stimulation for sensation Coordination: [id number] test normal Extrem General: Yes normal to inspection, Yes full ROM and Yes capillary refill normal Psych Appearance: grossly normal Mental Status: mental status grossly normal Affect: normal affect Attitude: cooperative Thought process: Normal thought process present Thought content: Normal thought content present Insight: Good insight present (Psych) Medical Decision Making [facility] Narrative Medical decision making narrative: Patient is a 60 year old female presenting to the emergency department today with hemorrhoid pain. Patient's physical exam showed a singular external hemorrhoid that showed no active bleeding or signs of strangulation. I explained my physical exam findings to the patient. I answered all questions asked by the patient. I stressed the importance of the patient taking her medication as prescribed. I stressed the importance of the patient following up with her primary care provider and a GI specialist. I stressed the importance of the patient returning to the emergency department immediately if her symptoms were to worsen or if she were to develop any dizziness, shortness of breath, difficulty breathing, chest pain, blurry vision, loss of vision, nausea, vomiting, abdominal pain, fever, chills, back pain, or any other complaints. Patient verbalized agreement and understanding with this treatment plan and discharge. Differential Diagnosis Differential Diagnosis: hemorrhoids Medical Records Medical records reviewed: Yes I reviewed the patient's medical records. Discharge Plan Discharge Clinical Impression: Hemorrhoid Patient Disposition: Home, Self-Care Instructions: Hemorrhoids (ED) Additional Instructions: Follow up with your primary care provider. Return to the emergency department immediately if your symptoms worsen or if you develop any dizziness, shortness of breath, difficulty breathing, chest pain, blurry vision, loss of vision, nausea, vomiting, abdominal pain, fever, chills, back pain, or any other complaints. Prescriptions: No Action hydrocodone-homatropine [Hycodan] 5-1.5 mg/5 mL (5 mL) syrup 5 ml PO Q6H PRN (Reason: cough) Qty: 60 0RF hydrocortisone acetate [Anusol-HC] 25 mg suppository 25 mg [place] BID Qty: 12 0RF docusate sodium [Colace] 100 mg capsule 200 mg PO DAILY Qty: 60 0RF polyethylene glycol 3350 [Miralax] 17 gram/dose powder 17 g PO DAILY Qty: 510 0RF trazodone 50 mg tablet 50 mg PO BEDTIME PRN0RF famotidine 20 mg tablet 20 mg PO BID 0RF pantoprazole 40 mg tablet,delayed release (DR/EC) 40 mg PO DAILY 0RF buspirone 30 mg tablet 30 mg PO BID 0RF loratadine 10 mg capsule 10 mg PO DAILY 0RF risperidone [Risperdal] 2 mg tablet 2 mg PO DAILY 0RF cyclobenzaprine 5 mg tablet 5 mg PO BEDTIME PRN (Reason: muscle spasm) 90 Days Qty: 90 3RF Referrals: Adolfo Egan MD [Physician] - 2 days Daphne Almanza MD [Primary Care Provider] - 2 days Interventions: ED Discharge Assessment Last Done: 05/27/21 00:01 Print Language: Wolof
[2021-05-26] MEDS: HYDROcodone Bit/Acetam 5/325 TABLET 1 TAB PO (23:57)
== END 2021-05-27 00:05 | disposition home or self-care (01) ==
PROVIDERS: Emergency Provider Emergency Medicine; PCP Internal Medicine
DX: K64.4 Residual hemorrhoidal skin tags (principal)
CPT/HCPCS: 99283; 99284

== ENCOUNTER 2022-02-21 23:50 | Emergency (ER) | payer OTHER, SELFPAY ==
--- NOTE | ~2022-02-21 | XR_ITS ---
EXAMINATION: XR LUMBOSACRAL SPINE CLINICAL INFORMATION: Low back pain COMPARISON: CT 04/04/2021 TECHNIQUE: Three views of the lumbosacral spine. FINDINGS: There is anatomic alignment of the lumbar vertebral bodies and posterior elements. Vertebral body heights are maintained. Intervertebral disc spaces appear relatively well-preserved. Mild endplate osteophytes are noted. No acute fracture is seen. Sacroiliac joints appear intact. Calcifications present along the aorta. XR/XR lumbar spine 2-3V IMPRESSION: No acute findings identified. Mild degenerative changes.
[2022-02-22 00:03] VITALS: BP 149/104; PULSE 63; RESP 16; TEMP 36.3; O2SAT 99; BMI 27.4
--- NOTE | 2022-02-22 00:56 | ED_ITS ---
HPI - Back Pain/Injury General Chief Complaint: Back Pain/Injury Stated Complaint: leg pain, for a few weeks Time Seen by Provider: 02/22/22 00:56 Source: patient Mode of arrival: ambulatory Limitations: no limitations History of Present Illness HPI Narrative: Patient history of fibromyalgia comes here for lower back pain for last 3 weeks it into both lower extremities no urinary or bowel incontinence feels tingly in both feet low back pain going on off and on for long time but this time it is lasting longer has not had any x-ray no history of injury patient feel worse when she goes upstairs instead of down stairs no weakness of lower extremities Related Data Home Medications Medication Instructions Recorded Confirmed buspirone 30 mg tablet 30 mg PO BID 03/04/20 03/04/20 famotidine 20 mg tablet 20 mg PO BID 03/04/20 03/04/20 loratadine 10 mg capsule 10 mg PO DAILY 03/04/20 03/04/20 pantoprazole 40 mg tablet,delayed 40 mg PO DAILY 03/04/20 03/04/20 release trazodone 50 mg tablet 50 mg PO BEDTIME PRN 03/04/20 03/04/20 risperidone 2 mg tablet (Risperdal) 2 mg PO DAILY 10/13/20 Previous Rx's Medication Instructions Recorded cyclobenzaprine 5 mg tablet 5 mg PO BEDTIME PRN muscle spasm 10/13/20 90 days #90 tabs hydrocodone-homatropine 5 mg-1.5 5 ml PO Q6H PRN cough #60 mL 10/21/20 mg/5 mL (5 mL) oral syrup (Hycodan) docusate sodium 100 mg capsule 200 mg PO DAILY #60 caps 03/27/21 (Colace) hydrocortisone acetate 25 mg 25 mg MS BID #12 ea 03/27/21 rectal suppository (Anusol-HC) polyethylene glycol 3350 17 17 g PO DAILY #510 grams 03/27/21 gram/dose oral powder (Miralax) cyclobenzaprine 10 mg tablet 10 mg PO Q8H #20 tabs 02/22/22 tramadol 50 mg tablet 50 mg PO Q6H PRN pain #20 tabs 02/22/22 Allergies Allergy/AdvReac Type Severity Reaction Status Date / Time aspirin [ASA] Allergy Intermediate NAUSEA & Verified 02/22/22 00:07 VOMITING, stomach upset, nausea and vomiting Review of Systems Review of Systems: Yes all other systems are reviewed and are negative [facility], [facility] Past Medical History Medical History Acid reflux Asthma Bloating Vocal cord anomaly Social History Social History Household Members Other:: alone Alcohol intake: never Patient Tobacco Use Status: Former Tobacco user Tobacco use type: Cigarette Years Smoked: quit 12 years ago Current occupational status: unemployed Physical Exam Vital Signs: Vital Signs: Last Vital Signs Temp 97.3 F 02/22/22 00:03 Pulse 63 02/22/22 00:03 Resp 16 02/22/22 00:03 BP 149/104 H 02/22/22 00:03 Pulse Ox 99 02/22/22 00:03 O2 Del Method 02/22/22 00:03 BMI result Body Mass Index 27.4 Appearance: Alert. Oriented X3. No acute distress. ENT: Pharynx normal. Oral Mucosa moist Neck: Normal inspection. Neck supple. CVS: Normal heart rate and rhythm. Pulses normal. Respiratory: No respiratory distress. Equal air entry bilateral, no wheezing/rales/rhonchi Abdomen: Soft and nontender. Bowel sounds are present, no mass palpable, no CVA tenderness Skin: Skin warm and dry. Normal skin color. Normal skin turgor. Extremities: No lower extremity edema. No calf tenderness SLR negative bilaterally no sciatic notch pain patient able to stand on one foot at one time able to stand on her toes and heel no spinal deformity or tenderness Neuro: Oriented X 3. No motor deficit. No sensory deficit.No cerebellar signs , cranial nerves II-XII intact Medications Administered Discontinued Medications Generic Name Dose Route Start Last Admin Trade Name Freq PRN Reason Stop Dose Admin Cyclobenzaprine HCl 10 mg 02/22/22 01:05 02/22/22 01:12 Cyclobenzaprine Hcl 10 Mg Tablet PO 02/22/22 01:06 10 mg ONCE ONE Administration Oxycodone HCl 5 mg 02/22/22 01:05 02/22/22 01:12 Oxycodone Hcl Immed Release 5 Mg Tablet PO 02/22/22 01:06 5 mg ONCE ONE Administration MDM - Back Pain/Injury MDM Narrative Medical decision making narrative: Patient with atraumatic lower back pain radiating to the both lower extremities get worse on going upstairs feels better on bending forward clinically patient has lumbar canal stenosis patient never had MRI of her lower back will do basic x-ray advised to follow-up with PCP X-ray negative for any acute fracture patient ambulatory in steady gait Discharge Plan Discharge Clinical Impression: Lumbar canal stenosis Patient Disposition: Home, Self-Care Instructions: Lumbar Spinal Stenosis (ED) Additional Instructions: Stretching exercise for the back as advised Follow-up with your PCP for physical therapy and further evaluation Pain medication muscle relaxant as advised Prescriptions: New cyclobenzaprine 10 mg tablet 10 mg PO Q8H Qty: 20 0RF tramadol 50 mg tablet 50 mg PO Q6H PRN (Reason: pain) Qty: 20 0RF No Action hydrocodone-homatropine [Hycodan] 5-1.5 mg/5 mL (5 mL) syrup 5 ml PO Q6H PRN (Reason: cough) Qty: 60 0RF hydrocortisone acetate [Anusol-HC] 25 mg suppository 25 mg MS BID Qty: 12 0RF docusate sodium [Colace] 100 mg capsule 200 mg PO DAILY Qty: 60 0RF polyethylene glycol 3350 [Miralax] 17 gram/dose powder 17 g PO DAILY Qty: 510 0RF trazodone 50 mg tablet 50 mg PO BEDTIME PRN famotidine 20 mg tablet 20 mg PO BID pantoprazole 40 mg tablet,delayed release (DR/EC) 40 mg PO DAILY buspirone 30 mg tablet 30 mg PO BID loratadine 10 mg capsule 10 mg PO DAILY risperidone [Risperdal] 2 mg tablet 2 mg PO DAILY cyclobenzaprine 5 mg tablet 5 mg PO BEDTIME PRN (Reason: muscle spasm) 90 Days Qty: 90 3RF
[2022-02-22] MEDS: Cyclobenzaprine HCl 10 MG TABLET PO (01:12)
[2022-02-22] MEDS: oxyCODONE HCl Immed Release 5 MG TABLET PO (01:12)
--- OUTSIDE RECORDS SUMMARY | 2022-02-22 01:29 | XMS_ITS | Continuity of Care Document ---
:1960 Author Organization [facility] Address [address] [place] [address]- Care Team Providers Name Role Phone Tim CHRISTIAN, Cathy Malave Primary Care Physician Encounter [facility] Date(s): 05/07/21 - 06/06/21 [facility] [address] [place] [id number] Attending Physician: Laxmi Alcaraz Admitting Physician: Laxmi Alcaraz Referring Physician: AdmtrLaxmi Allergies, Adverse Reactions, Alerts Substance Reaction Severity Status aspirin RASH, TIGHTNESS IN THROAT Persistent Severe Acti ve Medications BusPIRone By Mouth, 0 Refills, Maintenance Start Date: 08/30/12 Status: OrderedClonazepam By Mouth, 3 times a day, 0 Refills, Maintenance Start Date: 08/30/12 Status: Orderedfamotidine 20 mg oral tablet 1 tablet = 20 mg, By Mouth, Daily, Take 1 tablet daily by mouth, # 30 tablet, 0 Refills, Maintenance, 05/16/15 10:44:54, Tablet Start Date: 05/16/15 Stop Date: 06/15/15 Status: OrderedFlonase 1 sprays, Daily, 0 Refills, Maintenance Start Date: 08/30/12 Status: OrderedGabapentin By Mouth, 0 Refills, Maintenance Start Date: 08/30/12 Status: OrderedLoratadine 10 mg, By Mouth, Daily, Maintenance, 08/30/12 20:59:09 Start Date: 08/30/12 Status: OrderedPrilosec OTC 20, mg, By Mouth, 2 times a day, 1 box, 3, 3, 12/11/07 9:10:24, Print TEREZA Number, [id number], Constant Indicator Start Date: 12/11/07 Stop Date: 12/05/08 Status: OrderedRisperidone 2 times a day, 0 Refills, Maintenance Start Date: 08/30/12 Status: Orderedtramadol 50 mg oral tablet 1 tablet = 50 mg, By Mouth, Every 4 hours, PRN Pain, # 60 tablet, 0 Refills, Maintenance, Tablet Start Date: 07/26/09 Status: OrderedVenlafaxine By Mouth, 0 Refills, Maintenance Start Date: 08/30/12 Status: Ordered
--- NOTE | 2022-02-22 01:31 | PC.NURSE ---
pt's daughter at bedside at time of discharge. pt ambulates independently. pt reports no change in pain since receiving medication. discharge packet provided to pt. pt verbalizes understanding of discharge plan.
== END 2022-02-22 01:38 | disposition home or self-care (01) ==
LOC: HO.ED 02-22 01:27
PROVIDERS: Emergency Provider Internal Medicine
DX: M54.50 Low back pain, unspecified (principal); M79.605 Pain in left leg; M79.604 Pain in right leg; Z79.899 Other long term (current) drug therapy
CPT/HCPCS: 72100; 99283; 99284

== ENCOUNTER 2022-12-16 09:26 | Emergency (ER) | payer OTHER, SELFPAY ==
--- NOTE | 2022-12-16 09:29 | ECG_ITS ---
Test Reason : cp Blood Pressure : / mmHG Vent. Rate : 064 BPM Atrial Rate : 064 BPM P-R Int : 148 ms QRS Dur : 086 ms QT Int : 400 ms P-R-T Axes : 043 058 046 degrees QTc Int : 412 ms Normal sinus rhythm Normal ECG When compared with ECG of 22-OCT-2019 20:46, Nonspecific ST and T wave abnormality is no longer Present QT has shortened Referred By: Generic ED Physician Electronically Signed By:MARCIE ECKERT
[2022-12-16 09:45] VITALS: BP 170/74; PULSE 65; RESP 16; TEMP 36.7; O2SAT 99; BMI 27.5
[2022-12-16 10:08] LABS: MANUAL DIFF FLAG NO
[2022-12-16 10:10] LABS: Basophils Percent Auto 0.7 % (0-2); Eosinophils Absolute Auto 0.1 X10*3/uL (0.0-0.4); Eosinophils Percent Auto 2.5 % (0-4); Hematocrit 36.9 % (37.0-47.0); Hemoglobin 12.5 g/dl (12.0-16.0); Imm Gran Abs Auto 0.01 X10*3/uL (0.00-0.03); Imm Gran Pct Auto 0.2 % (0.0-0.4); Lymphocytes Absolute Auto 1.3 X10*3/uL (1.2-4.9); Mean Corpuscular HGB Conc 33.9 g/dl (31.0-35.0); Mean Corpuscular Hemoglobin 30.1 pg (27.0-33.0); Mean Corpuscular Volume 88.9 fL (80.0-98.0); Mean Platelet Volume 10.2 fL (9.4-12.3); Monocytes Absolute Auto 0.6 X10*3/uL (0.1-1.2); Monocytes Percent Auto 10.2 % (2-11); Neutrophils Absolute Auto 3.5 x10*3/uL (2.0-8.3); Neutrophils Percent Auto 62.4 % (45-73); Platelet Count 255 X10*3/uL (160-400); Red Blood Count 4.15 X10*6/uL (4.20-5.50); Red Cell Distribution Width 13.4 % (11.0-16.0); White Blood Count 5.6 X10*3/uL (4.8-10.8)
[2022-12-16 10:30] LABS: Alanine Aminotransferase 14 U/L (0-31); Albumin Level 4.2 g/dL (3.5-5.0); Alkaline Phosphatase 81 U/L (39-117); Anion Gap 12 (12-20); Aspartate Amino Transferase 17 U/L (5-31); Bilirubin Total 0.4 mg/dL (0.0-1.0); Blood Urea Nitrogen 13 mg/dL (9-16); Calcium 10.2 mg/dL (8.4-10.2); Carbon Dioxide 27 mmol/L (22-29); Chloride 107 mmol/L (96-108); Creatinine Clr Calc Pharmacy 60.9; Estimated Glomerular Filt Rate > 60; Glucose Random 105 mg/dL (60-115); Potassium 4.4 mmol/L (3.3-5.1); Sodium 142 mmol/L (135-145)
[2022-12-16 10:39] LABS: Troponin-I High Sensitivity < 2.7 ng/L (<3.5-17.0)
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
--- NOTE | 2022-12-16 10:56 | PC.NURSE ---
pt being seen by PIT at this time
[2022-12-16 16:05] VITALS: BP 177/82; PULSE 71; RESP 16; TEMP 37; O2SAT 96
[2022-12-16] MEDS: LORazepam 1 MG TABLET PO (17:37)
== END 2022-12-16 18:34 | disposition home or self-care (01) ==
PROVIDERS: Emergency Provider Emergency Medicine; PCP Internal Medicine
DX: R07.89 Other chest pain (principal); F41.1 Generalized anxiety disorder; F43.0 Acute stress reaction; Z79.899 Other long term (current) drug therapy
CPT/HCPCS: 36415; 80053; 84484; 85025; 93005; 99283; 99284

== ENCOUNTER 2023-02-11 05:04 | Emergency (ER) | payer OTHER, SELFPAY ==
--- NOTE | 2023-02-11 | ECG_ITS ---
Test Reason : sob Blood Pressure : / mmHG Vent. Rate : 071 BPM Atrial Rate : 071 BPM P-R Int : 132 ms QRS Dur : 086 ms QT Int : 380 ms P-R-T Axes : 020 064 056 degrees QTc Int : 412 ms Normal sinus rhythm Normal ECG When compared with ECG of 16-DEC-2022 09:34, No significant change was found Referred By: Generic ED Physician Electronically Signed By:PASHA ASHFORD MD
--- NOTE | ~2023-02-11 | XR_ITS ---
EXAMINATION: XR chest 2V CLINICAL INFORMATION: Reason for Exam cough COMPARISON: No prior chest x-ray available in our system for comparison at the time of this dictation. TECHNIQUE: XR chest 2V, 2 Views Lungs and Sherry: Both lungs are clear. Pleura: Normal. Costophrenic angles are sharp. No pneumothorax. Heart: The heart is normal in size. Mediastinum: The mediastinum is within normal limits.. Bones: Skeletal structures included are normal for patient's age. XR/XR chest 2V IMPRESSION: No radiographic evidence of acute cardiopulmonary disease.
[2023-02-11 05:09] VITALS: BP 182/86; PULSE 73; RESP 18; TEMP 36.6; O2SAT 100; BMI 27.5
[2023-02-11 05:58] VITALS: BP 171/76; PULSE 74; RESP 16; TEMP 37.3; O2SAT 98
[2023-02-11 07:20] VITALS: BP 154/78; PULSE 75; RESP 20; O2SAT 96
--- NOTE | 2023-02-11 07:26 | ED_ITS ---
HPI - SOB/Dyspnea General Chief Complaint: Dyspnea Stated Complaint: Diff Breathing Time Seen by Provider: 02/11/23 06:30 Source: patient Mode of arrival: ambulatory Limitations: no limitations History of Present Illness HPI Narrative: 62-year-old female with a history of GERD, anxiety presents to the ER with complaints of shortness of breath and difficulty swallowing for more than 3 months. Patient reports that she has had these symptoms intermittently for several years but over the last 3 months they seem to be more severe and more persistent. Patient reports that she has a history of tobacco smoking for 30 years. She was referred to an ENT in October and tells me that she had a normal scope in the office. She has also been seen by GI in tells me that she has had swallow exams and endoscopies which have been unremarkable per patient. She is on Protonix 40 mg daily. She tells me that she saw her primary care doctor this past . She was scheduled for repeat swallow study as well as a thyroid ultrasound which is for this . Since 02:00 she reports increased sore throat described as dryness and feeling like she has a lump in her throat. Patient reports he is able to tolerate liquids with no difficulty but when she has to eat food she has to take it with fluid to let it pass. She also reports associated headache and tactile temp since yesterday. She does me her daughter is sick with COVID. She did do a COVID test this morning which she tells me was negative. She denies any chills, vomiting, diarrhea, abdominal pain, skin rash, neck pain, neck stiffness, leg swelling or leg pain. No recent travel. No weight loss, night sweats. Related Data Home Medications Medication Instructions Recorded Confirmed buspirone 30 mg tablet 30 mg PO BID 03/04/20 03/04/20 famotidine 20 mg tablet 20 mg PO BID 03/04/20 03/04/20 loratadine 10 mg capsule 10 mg PO DAILY 03/04/20 03/04/20 pantoprazole 40 mg tablet,delayed 40 mg PO DAILY 03/04/20 03/04/20 release trazodone 50 mg tablet 50 mg PO BEDTIME PRN 03/04/20 03/04/20 risperidone 2 mg tablet (Risperdal) 2 mg PO DAILY 10/13/20 Previous Rx's Medication Instructions Recorded cyclobenzaprine 5 mg tablet 5 mg PO BEDTIME PRN muscle spasm 10/13/20 90 days #90 tabs hydrocodone-homatropine 5 mg-1.5 5 ml PO Q6H PRN cough #60 mL 10/21/20 mg/5 mL (5 mL) oral syrup (Hycodan) docusate sodium 100 mg capsule 200 mg (2 x 100 mg) PO DAILY #60 03/27/21 (Colace) caps hydrocortisone acetate 25 mg 25 mg [place] BID #12 ea 03/27/21 rectal suppository (Anusol-HC) polyethylene glycol 3350 17 17 g PO DAILY #510 grams 03/27/21 gram/dose oral powder (Miralax) cyclobenzaprine 10 mg tablet 10 mg PO Q8H #20 tabs 02/22/22 tramadol 50 mg tablet 50 mg PO Q6H PRN pain #20 tabs 02/22/22 lorazepam 1 mg tablet (Ativan) 1 mg PO BID PRN anxiety #8 tabs 12/16/22 Allergies Allergy/AdvReac Type Severity Reaction Status Date / Time aspirin [ASA] Allergy Intermediate NAUSEA & Verified 02/11/23 05:18 VOMITING, stomach upset, nausea and vomiting Review of Systems 2 Review of Systems: Yes all other systems are reviewed and are negative Constitutional: Constitutional: Reports no additional constitutional complaints, Denies body ache(s), Denies chills, Denies fever(s), Reports headache(s) and Denies weakness Eyes: Eyes: Reports no additional eye complaints and Denies change in vision ENT: Reports system reviewed and no additional complaints, except as documented, Denies dizziness, Reports headache(s), Denies nasal congestion, Denies nasal discharge, Denies neck pain and Reports sore throat Comments: diff swallowing Cardiovascular: Cardiovascular: Reports no additional cardiovascular complaints, Denies chest pain, Denies leg edema and Reports dyspnea Respiratory: Respiratory: Reports no additional respiratory complaints, Denies cough and Reports dyspnea Gastrointestinal: Gastrointestinal: Reports no additional gastrointestinal complaints, Denies abdominal pain, Denies diarrhea, Denies nausea and Denies vomiting Genitourinary: Genitourinary: Reports no additional female genitourinary complaints and Denies urinary incontinence Musculoskeletal: Musculoskeletal: Reports no additional musculoskeletal complaints, Denies back pain, Denies arthralgias, Denies joint swelling, Denies neck pain, Denies numbness and Denies tingling Integumentary/Breasts: Skin/Breast: Reports system reviewed and no additional complaints, except as docu and Denies rash Neurologic: Reports system reviewed and no additional complaints, except as documented, Denies Abnormal speech present, Denies dizziness, Reports headache(s), Denies numbness, Denies tingling and Denies weakness [facility] Past Medical History Attestation statement: The following information was validated with the patient. Source: old records reviewed and nursing notes reviewed Medical History Asthma Vocal cord anomaly Bloating Acid reflux Social History Social History Household Members Other:: alone Alcohol intake: never Patient Tobacco Use Status: Former Tobacco user Tobacco use type: Cigarette Years Smoked: quit 12 years ago Advance Directives: No Advance Directives Information Provided: Yes Current occupational status: unemployed Physical Exam 2 Vital Signs: Vital Signs: Last Vital Signs Temp 99.1 F 02/11/23 05:58 Pulse 80 02/11/23 08:45 Resp 23 H 02/11/23 08:45 BP 158/83 H 02/11/23 08:45 Pulse Ox 99 02/11/23 08:45 O2 Del Method Room Air 02/11/23 08:45 BMI result Body Mass Index 27.5 Const: General: cooperative, healthy appearing, comfortable and no acute distress Orientation/consciousness: patient oriented x3 Limitations: no limitations HEENT: Head: Yes normal to inspection Ears: hearing grossly normal bilaterally and TM's normal bilaterally General nose exam: Normal external nose present Face and sinus: Yes normal facial exam Mouth: Normal oral and palatal mucosa present Throat: Yes posterior oropharynx normal, Yes tonsils normal and Yes uvula midline Eyes: General: appearance normal, both eyes and all related structures P upils: Equal, round and reactive pupils present Neck: Neck: Yes normal visual inspection, Yes full ROM, Yes no lymphadenopathy and Yes no meningeal signs Chest: Chest palpation & inspection: normal inspection of the chest Resp: Effort & Inspection: normal respiratory effort Auscultation: clear to auscultation bilaterally Cardio: Rate: regular rate Rhythm: regular rhythm Peripheral pulses: P eripheral pulses 2+ throughout GI: Inspection: Yes normal to inspection Palpation (GI): Soft to palpation and nontender Auscultation: normal bowel sounds Back/Spine/Pelvis: Thoracic/Lumbar Spine: thoracic and lumbar spine normal to inspection Skin: General skin exam: no rashes or lesions noted Neuro: General: patient oriented x3, no meningeal signs, no focal motor deficits and normal sensation to monofilament Cranial nerves: Yes Equal, round and reactive pupils present Cognition (Neuro): normal cognition S peech: No Abnormal speech present Gait exam (Neuro): Normal gait present M otor exam (neuro): 5/5 motor strength present throughout Extrem: General: Yes normal to inspection, Yes no pedal edema and Yes no calf tenderness Course Course Course Narrative: COVID screen is positive. Patient speaking full sentences, lungs are clear. Normal vital signs. Recommend supportive care at home. Reviewed worrisome signs and symptoms of when to return to the emergency room. Comfortable plan for discharge home. In regards to her sore throat and reports of difficulty swallowing I recommend that she continue with plan to follow-up for outpatient studies and return for any worsening symptoms. Medications Administered Discontinued Medications Generic Name Dose Route Start Last Admin Trade Name Freq PRN Reason Stop Dose Admin Acetaminophen 975 mg 02/11/23 07:25 02/11/23 08:42 Acetaminophen 325 Mg Tablet PO 02/11/23 07:26 975 mg ONCE ONE Administration Medical Decision Making Medical Decision Making [facility] Narrative: 62-year-old female with a history of GERD, anxiety presents to the ER with complaints of shortness of breath and difficulty swallowing for more than 3 months.? Patient reports that she has had these symptoms intermittently for several years but over the last 3 months they seem to be more severe and more persistent.? Patient reports that she has a history of tobacco smoking for 30 years.? She was referred to an ENT in October and tells me that she had a normal scope in the office.? She has also been seen by GI in tells me that she has had swallow exams and endoscopies which have been unremarkable per patient.? She is on Protonix 40 mg daily.? She tells me that she saw her primary care doctor this past .? She was scheduled for repeat swallow study as well as a thyroid ultrasound which is for this .? Since 02:00 she reports increased sore throat described as dryness and feeling like she has a lump in her throat.? Patient reports he is able to tolerate liquids with no difficulty but when she has to eat food she has to take it with fluid to let it pass.? She also reports associated headache and tactile temp since yesterday.? She does me her daughter is sick with COVID.? She did do a COVID test this morning which she tells me was negative.? She denies any chills, vomiting, diarrhea, abdominal pain, skin rash, neck pain, neck stiffness, leg swelling or leg pain. No recent travel.? No weight loss, night sweats.? On exam patient is swallowing water with no difficulty. Her posterior oropharynx is normal. She has no lymphadenopathy or meningeal signs. Her lungs are clear. Her vitals are stable. Will obtain chest x-ray, COVID/flu/RSV testing, strep testing Will likely need further outpatient testing due to history of tobacco smoking and consideration of malignancy however not emergently. Differential Diagnosis Differential Diagnoses: The differential diagnosis associated with the presentation includes Viral syndrome, strep pharyngitis Low concern for RPA, MIGRATORY FARM HAND, epiglottitis, Kirt's angina, obstructing mass GERD No clinical findings concern for DVT, no risk factors-no hypoxia, tachypnea or tachycardia Admission/Observation Consideration of admission/observation: Escalation of care including admission/observation considered No hypoxia or tachypnea requiring supplemental oxygen and redness Lab Data MDM Lab Attestation statement: I reviewed the patient's lab results. 02/11/23 07:54 02/11/23 07:54 Labs: Lab Results 02/11/23 02/11/23 02/11/23 Range/Units 07:51 07:54 08:15 WBC 7.0 (4.8-10.8) X10*3/uL RBC 4.05 L (4.20-5.50) X10*6/uL Hgb 12.1 (12.0-16.0) g/dl Hct 36.0 L (37.0-47.0) % MCV 88.9 (80.0-98.0) fL MCH 29.9 (27.0-33.0) pg MCHC 33.6 (31.0-35.0) g/dl RDW 13.4 (11.0-16.0) % Plt Count 235 (160-400) X10*3/uL MPV 10.4 (9.4-12.3) fL Immature Gran % (Auto) 0.3 (0.0-0.4) % Neut % (Auto) 74.8 H (45-73) % Lymph % (Auto) 12.4 L (20-40) % [place] % (Auto) 10.6 (2-11) % Eos % (Auto) 1.3 (0-4) % Baso % (Auto) 0.6 (0-2) % Lymph # (Auto) 0.9 L (1.2-4.9) X10*3/uL [place] # (Auto) 0.7 (0.1-1.2) X10*3/uL Eos # (Auto) 0.1 (0.0-0.4) X10*3/uL Baso # (Auto) 0.0 (0.0-0.2) X10*3/uL Abs Immat Gran (auto) 0.02 (0.00-0.03) X10*3/uL Absolute Neuts (auto) 5.2 (2.0-8.3) x10*3/uL Absolute Nucleated RBC 0.000 (0.0-0.012) X10*3/uL Nucleated RBC % (auto) 0.0 (0.0-0.2) /100WBC Sodium 142 (135-145) mmol/L Potassium 4.0 (3.3-5.1) mmol/L Chloride 106 (96-108) mmol/L Carbon Dioxide 29 (22-29) mmol/L Anion Gap 11 L (12-20) BUN 14 (9-16) mg/dL Creatinine 0.85 (0.5-1.4) mg/dL Estim Creat Clear Calc 64.5 Estimated GFR > 60 Random Glucose 101 (60-115) mg/dL Calcium 9.2 D (8.4-10.2) mg/dL Influenza Type A (PCR) NEGATIVE (Negative) Influenza Type B (PCR) NEGATIVE (Negative) RSV RNA Qual (PCR) NEGATIVE (Negative) SARS-CoV-2 RNA (RT-PCR) POSITIVE A (Negative) S. pyogenes GrpA XAVIER Negative (Negative) Independent Interpretation I performed an independent interpretation of an: EKG and Plain X-Ray Interpretation: I independently reviewed the EKG which shows normal sinus rhythm with a rate of 71, normal [place], normal QRS, normal QT I independently viewed the chest x-ray and agree with Radiology report Radiology Impression Discussion of test interpretation with radiology: I have reviewed the radiologist's reading. Radiologist Impression: Launch?Image [address] [address] XRay Report Signed Patient: Nila Gomez MR#: [id number] : 1960 Acct:[id number] Age/Sex: 62 / F ADM Date: 02/11/23 Loc: HO.ED Attending Dr: Ordering Physician: Ramandeep Quick NP Date of Service: 02/11/23 Procedure(s): XR chest 2V Accession Number(s): [id number] cc: Daphne Almanza MD; Ramandeep Quick NP~ EXAMINATION: XR chest 2V CLINICAL INFORMATION: Reason for Exam cough COMPARISON: No prior chest x-ray available in our system for comparison at the time of this dictation. TECHNIQUE: XR chest 2V, 2 Views Lungs and Sherry: Both lungs are clear. Pleura: Normal. Costophrenic angles are sharp. No pneumothorax. Heart: The heart is normal in size. Mediastinum: The mediastinum is within normal limits.. Bones: Skeletal structures included are normal for patient's age. XR/XR chest 2V IMPRESSION: No radiographic evidence of acute cardiopulmonary disease. Discharge Plan Discharge Clinical Impression: COVID-19 Patient Disposition: Home, Self-Care Instructions: COVID-19 (Coronavirus Disease 2019) (ED) Additional Instructions: Quarantine for 5 days then mask up for an additional 5 more days. Take Tylenol for pain or fever Stay well hydrated Continue with your plan to follow-up for your outpatient swallow study and thyroid ultrasound. Ponga en cuarentena lilibeth 5 d?as y luego use mascarilla por 5 d?as m?s. Keats Tylenol para el dolor o la fiebre. Mantente janelle hidratado Contin?e con arias plan de seguimiento para arias estudio ambulatorio de degluci?n y ecograf?a de tiroides. Prescriptions: No Action hydrocodone-homatropine [Hycodan] 5-1.5 mg/5 mL (5 mL) syrup 5 ml PO Q6H PRN (Reason: cough) Qty: 60 0RF hydrocortisone acetate [Anusol-HC] 25 mg suppository 25 mg [place] BID Qty: 12 0RF docusate sodium [Colace] 100 mg capsule 200 mg PO DAILY Qty: 60 0RF polyethylene glycol 3350 [Miralax] 17 gram/dose powder 17 g PO DAILY Qty: 510 0RF cyclobenzaprine 10 mg tablet 10 mg PO Q8H Qty: 20 0RF tramadol 50 mg tablet 50 mg PO Q6H PRN (Reason: pain) Qty: 20 0RF lorazepam [Ativan] 1 mg tablet 1 mg PO BID PRN (Reason: anxiety) Qty: 8 0RF trazodone 50 mg tablet 50 mg PO BEDTIME PRN famotidine 20 mg tablet 20 mg PO BID pantoprazole 40 mg tablet,delayed release (DR/EC) 40 mg PO DAILY buspirone 30 mg tablet 30 mg PO BID loratadine 10 mg capsule 10 mg PO DAILY risperidone [Risperdal] 2 mg tablet 2 mg PO DAILY cyclobenzaprine 5 mg tablet 5 mg PO BEDTIME PRN (Reason: muscle spasm) 90 Days Qty: 90 3RF Referrals: Daphne Almanza MD [Primary Care Provider] - 1 week Print Language: Bahraini
[2023-02-11 07:59] LABS: MANUAL DIFF FLAG NO
[2023-02-11 08:03] LABS: Basophils Percent Auto 0.6 % (0-2); Eosinophils Absolute Auto 0.1 X10*3/uL (0.0-0.4); Eosinophils Percent Auto 1.3 % (0-4); Hemoglobin 12.1 g/dl (12.0-16.0); Imm Gran Abs Auto 0.02 X10*3/uL (0.00-0.03); Imm Gran Pct Auto 0.3 % (0.0-0.4); Lymphocytes Absolute Auto 0.9 X10*3/uL (1.2-4.9); Lymphocytes Percent Auto 12.4 % (20-40); Mean Corpuscular HGB Conc 33.6 g/dl (31.0-35.0); Mean Corpuscular Hemoglobin 29.9 pg (27.0-33.0); Mean Corpuscular Volume 88.9 fL (80.0-98.0); Mean Platelet Volume 10.4 fL (9.4-12.3); Monocytes Absolute Auto 0.7 X10*3/uL (0.1-1.2); Monocytes Percent Auto 10.6 % (2-11); Neutrophils Absolute Auto 5.2 x10*3/uL (2.0-8.3); Neutrophils Percent Auto 74.8 % (45-73); Platelet Count 235 X10*3/uL (160-400); Red Blood Count 4.05 X10*6/uL (4.20-5.50); Red Cell Distribution Width 13.4 % (11.0-16.0)
[2023-02-11 08:16] LABS: Anion Gap 11 (12-20); Blood Urea Nitrogen 14 mg/dL (9-16); Calcium 9.2 mg/dL (8.4-10.2); Carbon Dioxide 29 mmol/L (22-29); Chloride 106 mmol/L (96-108); Creatinine Clr Calc Pharmacy 64.5; Estimated Glomerular Filt Rate > 60; Glucose Random 101 mg/dL (60-115); Sodium 142 mmol/L (135-145)
[2023-02-11 08:38] LABS: IDNOW Serial# 08D9AD1C; Strep A Nucleic Acid Negative (Negative)
[2023-02-11] MEDS: Acetaminophen 325 MG TABLET 975 MG PO (08:42)
[2023-02-11 08:45] VITALS: BP 158/83; PULSE 80; RESP 23; O2SAT 99
[2023-02-11 08:48] LABS: Influenza A PCR NEGATIVE (Negative); Influenza B PCR NEGATIVE (Negative); Resp Syncy Virus RNA Qual PCR NEGATIVE (Negative); SARS COV2 PCR INHOUSE POSITIVE (Negative)
--- NOTE | 2023-02-11 09:35 | PC.NURSE ---
assumed care of pt at 0700. pt a&o x4, pleasant, calm, and cooperative. pt reporting pain to back, throat, and right leg. pt medicated per may. tolerated po meds well. pt on monitor. rr even/unlabored. call rich within pt reach. pt offers no other complaints gwendolyn. plan of care ongoing.
== END 2023-02-11 10:45 | disposition home or self-care (01) ==
PROVIDERS: Nurse Practitioner Family; Emergency Provider Emergency Medicine; PCP Internal Medicine
DX: U07.1 COVID-19 (principal); R06.02 Shortness of breath; Z87.891 Personal history of nicotine dependence
CPT/HCPCS: 0241U; 71046; 80048; 85025; 87651; 93005; 99283; 99284

== ENCOUNTER 2023-03-15 19:10 | Emergency (ER) | payer OTHER, SELFPAY ==
--- NOTE | ~2023-03-15 | CT_ITS ---
EXAMINATION: CT head/brain wo IV con CLINICAL INFORMATION: Reason for Exam headache for 4 days COMPARISON: None. TECHNIQUE: Contiguous axial imaging was performed from the skull base to vertex without intravenous contrast. Sagittal and coronal reformatted images were obtained. This CT examination was performed using dose optimization techniques as appropriate, variously including the following: * Automated exposure control * Adjustment of mA and/or kV according to patient size (this includes techniques or standardized protocols for targeted exams where dose is matched to indication/reason for exam; i.e. extremities or head) Use of iterative reconstruction technique DLP: 582.02 mGy-cm FINDINGS: The ventricles and sulci are normal in size and configuration without significant volume loss or hydrocephalus. There is no abnormal attenuation within the brain parenchyma. No territorial loss of acosta-white differentiation. No acute intracranial hemorrhage or extra-axial fluid collection. No mass lesion, significant mass effect, or herniation pattern. Expanded partially empty sella. The orbits are grossly normal. Partially imaged sclerotic wall thickening and trace mucosal disease of the left maxillary sinus. No mastoid effusion. Arrested pneumatization of the right sphenoid bone, a normal anatomic variant. Osseous structures are intact. CT/CT head/brain wo IV con IMPRESSION: No acute intracranial abnormality. Specifically, no CT evidence of acute intracranial hemorrhage, significant mass effect, hydrocephalus, or large territorial infarction. Expanded partially empty sella.
[2023-03-15 19:17] VITALS: BP 176/79; PULSE 67; RESP 16; TEMP 36.2; O2SAT 97; BMI 27.6
--- NOTE | 2023-03-15 19:20 | ED.GENADULT ---
HPI - General Adult General Chief complaint: Headache Stated complaint: headache x4 days Time Seen by Provider: 03/15/23 20:05 Source: patient Mode of arrival: ambulatory Limitations: no limitations History of Present Illness HPI narrative: Patient comes to the emergency complaining of 4 days of headache. Patient states that she has never been formally diagnosed with migraine headaches but this has happened before. At this time, the headache lasted longer than usual. It has been 4 days complaining of intermittent headache. Patient states the headache is present all the time but gets better for 2 hours after taking either Tylenol or ibuprofen but then the headache returns. Patient denies visual changes, no nausea vomiting or diarrhea. No floaters. Patient states that she has achiness behind both eyes. Related Data Home Medications Medication Instructions Recorded Confirmed buspirone 30 mg tablet 30 mg PO BID 03/04/20 03/04/20 famotidine 20 mg tablet 20 mg PO BID 03/04/20 03/04/20 loratadine 10 mg capsule 10 mg PO DAILY 03/04/20 03/04/20 pantoprazole 40 mg tablet,delayed 40 mg PO DAILY 03/04/20 03/04/20 release trazodone 50 mg tablet 50 mg PO BEDTIME PRN 03/04/20 03/04/20 risperidone 2 mg tablet (Risperdal) 2 mg PO DAILY 10/13/20 Previous Rx's Medication Instructions Recorded cyclobenzaprine 5 mg tablet 5 mg PO BEDTIME PRN muscle spasm 10/13/20 90 days #90 tabs hydrocodone-homatropine 5 mg-1.5 5 ml PO Q6H PRN cough #60 mL 10/21/20 mg/5 mL (5 mL) oral syrup (Hycodan) docusate sodium 100 mg capsule 200 mg (2 x 100 mg) PO DAILY #60 03/27/21 (Colace) caps hydrocortisone acetate 25 mg 25 mg OR BID #12 ea 03/27/21 rectal suppository (Anusol-HC) polyethylene glycol 3350 17 17 g PO DAILY #510 grams 03/27/21 gram/dose oral powder (Miralax) cyclobenzaprine 10 mg tablet 10 mg PO Q8H #20 tabs 02/22/22 tramadol 50 mg tablet 50 mg PO Q6H PRN pain #20 tabs 02/22/22 lorazepam 1 mg tablet (Ativan) 1 mg PO BID PRN anxiety #8 tabs 12/16/22 metoclopramide HCl 5 mg tablet 5 mg PO .B.i.d. PRN nausea and 03/15/23 vomiting #10 tabs sumatriptan succinate 50 mg tablet See Rx Instructions PO .COMPLEX 03/15/23 #10 tabs Allergies Allergy/AdvReac Type Severity Reaction Status Date / Time aspirin [ASA] Allergy Intermediate NAUSEA & Verified 02/11/23 05:18 VOMITING, stomach upset, nausea and vomiting Review of Systems Review of Systems: Constitutional : No Weight loss, No Fever, No Chills, No Night Sweats, No Fatigue, No Malaise ENT/Mouth : No Hearing loss, No Ear Pain, No Nasal Congestion, No Sinus Pain, No Hoarseness, No sore throat, No Rhinorrhea, No Swallowing Difficulty Eyes: No Eye Pain, No Swelling, No Redness, No Foreign Body, No Discharge, No Vision Changes Cardiovascular : No Chest Pain, No SOB, No Dyspnea on Exertion, No Orthopnea, No Edema, No Palpitations Respiratory : No Cough, No Sputum, No Wheezing, No Smoke Exposure, No Dyspnea Gastrointestinal : No Nausea, No Vomiting, No Diarrhea, No Constipation, No abdominal Pain, No Hematochezia, No Melena Genitourinary : no irregular bleeding, No Dysuria, No Urinary Frequency, No Hematuria, No Urinary Incontinence, No Urgency, No Flank Pain, No Urinary Flow Changes, No Hesitancy Musculoskeletal : No joint pain, No Myalgias, No Joint Swelling Skin : No Skin Lesions, No rash Neuro : No Weakness, No Numbness, No Paresthesias, No Loss of Consciousness, No Dizziness, complaining of headache for 4 days Psych : No Anxiety/Panic, No Depression, No SI/HI/AH/VH, No Social Issues, Heme/Lymph: No Bruising, No Bleeding,No Lymphadenopathy Endocrine : No Polyuria, No Polydipsia, No Temperature Intolerance [facility] Past Medical History Medical History Asthma Vocal cord anomaly Bloating Acid reflux Social History Social History Household Members Other:: alone Alcohol intake: never Patient Tobacco Use Status: Former Tobacco user Tobacco use type: Cigarette Years Smoked: quit 12 years ago Advance Directives: No Advance Directives Information Provided: No Current occupational status: unemployed Physical Exam ED Vital Signs: Vital Signs - 24 hr 03/15/23 19:17 Temperature 97.1 F Pulse Rate 67 Respiratory Rate 16 Blood Pressure 176/79 H Pulse Oximetry 97 Oxygen Delivery Method Room Air BMI result Body Mass Index 27.6 Const Other: Appearance: Alert. Oriented X3. No acute distress. Eyes: Pupils equal, round and reactive to light. ENT: Pharynx normal. Neck: Normal inspection. Neck supple. No lymph nodes noted. No crepitus CVS: Normal heart rate and rhythm. Pulses normal. Normal S1 and S2 Respiratory: No respiratory distress. Breath sounds normal. No Wheezing. No rales Abdomen: Soft and nontender. No rigidity. No distention. Skin: Skin warm and dry. Normal skin color. Normal skin turgor. Extremities: No lower extremity edema. No Lacerations. No Rash Neuro: Oriented X 3. No motor deficit. No sensory deficit. Moving all extremities. No slurred speech. CN 2 through 12 grossly intact Psych: calm, cooperative, normal affect Course Course Course Narrative: RME: 62 yold female presents to the ED for headache, photophboia for 4 days. patietn states no neck stiffenss. patient staes no chest pain or hsortness of breath. labs, HEad CT, and SARS ordered Medications Administered Discontinued Medications Generic Name Dose Route Start Last Admin Trade Name Freq PRN Reason Stop Dose Admin Diphenhydramine HCl 25 mg 03/15/23 20:12 03/15/23 20:23 Diphenhydramine Hcl 50 Mg/Ml Vial IVPUSH 03/15/23 20:13 25 mg ONCE ONE Administration Sodium Chloride 1,000 mls @ 999 mls/hr 03/15/23 20:12 03/15/23 21:18 Ns IVCONT 03/15/23 21:12 Infused .Q1H1M ONE Infusion Ketorolac Tromethamine 30 mg 03/15/23 20:12 03/15/23 20:23 Ketorolac Tromethamine 30 Mg/Ml Vial IVPUSH 03/15/23 20:13 30 mg ONCE ONE Administration Metoclopramide HCl 10 mg 03/15/23 20:12 03/15/23 20:27 Metoclopramide Hcl 10 Mg/2 Ml Vial IVPUSH 03/15/23 20:13 10 mg ONCE ONE Administration Medical Decision Making Medical Decision Making [facility] Narrative: -patient is neurologically intact -my interpretation of CT scan of the head: No intracranial bleed, no obvious masses -patient receiving IV fluids, diphenhydramine, ketorolac and Reglan -my interpretation of labs: Normal hematology and chemistry, serology negative for influenza RSV and COVID -after the above-mentioned treatment, patient feeling better, headache completely resolved. Patient likely having a migraine headache Differential Diagnosis Differential Diagnoses: The differential diagnosis associated with the presentation includes (Viral syndrome, migraine headache, tension headache, intracranial bleed) Admission/Observation Consideration of admission/observation: Escalation of care including admission/observation considered (Given patient's severity of symptoms, admission was considered on arrival) Lab Data [facility] Lab Attestation statement: I reviewed the patient's lab results. 03/15/23 19:33 03/15/23 19:33 Labs: Lab Results 03/15/23 Range/Units 19:33 WBC 5.2 (4.8-10.8) X10*3/uL RBC 4.30 (4.20-5.50) X10*6/uL Hgb 12.5 (12.0-16.0) g/dl Hct 37.5 (37.0-47.0) % MCV 87.2 (80.0-98.0) fL MCH 29.1 (27.0-33.0) pg MCHC 33.3 (31.0-35.0) g/dl RDW 14.0 (11.0-16.0) % Plt Count 203 (160-400) X10*3/uL MPV 10.1 (9.4-12.3) fL Immature Gran % (Auto) 0.2 (0.0-0.4) % Neut % (Auto) 45.2 (45-73) % Lymph % (Auto) 34.4 (20-40) % [place] % (Auto) 18.1 H (2-11) % Eos % (Auto) 1.1 (0-4) % Baso % (Auto) 1.0 (0-2) % Lymph # (Auto) 1.8 (1.2-4.9) X10*3/uL [place] # (Auto) 1.0 (0.1-1.2) X10*3/uL Eos # (Auto) 0.1 (0.0-0.4) X10*3/uL Baso # (Auto) 0.1 (0.0-0.2) X10*3/uL Abs Immat Gran (auto) 0.01 (0.00-0.03) X10*3/uL Absolute Neuts (auto) 2.4 (2.0-8.3) x10*3/uL Absolute Nucleated RBC 0.000 (0.0-0.012) X10*3/uL Nucleated RBC % (auto) 0.0 (0.0-0.2) /100WBC Sodium 143 (135-145) mmol/L Potassium 4.5 (3.3-5.1) mmol/L Chloride 109 H (96-108) mmol/L Carbon Dioxide 26 (22-29) mmol/L Anion Gap 13 (12-20) BUN 17 H (9-16) mg/dL Creatinine 0.96 (0.5-1.4) mg/dL Estim Creat Clear Calc 57.3 Estimated GFR 59 Random Glucose 117 H (60-115) mg/dL Calcium 9.4 (8.4-10.2) mg/dL Total Bilirubin 0.2 (0.0-1.0) mg/dL AST 37 H (5-31) U/L ALT 35 H (0-31) U/L Alkaline Phosphatase 98 (39-117) U/L Total Protein 8.3 H (6.5-8.0) g/dL Albumin 4.1 (3.5-5.0) g/dL Influenza Type A (PCR) NEGATIVE (Negative) Influenza Type B (PCR) NEGATIVE (Negative) RSV RNA Qual (PCR) NEGATIVE (Negative) SARS-CoV-2 RNA (RT-PCR) NEGATIVE (Negative) Independent Interpretation I performed an independent interpretation of an: CT Scan Radiology Impression Discussion of test interpretation with radiology: I have reviewed the radiologist's reading. Radiologist Impression: FINDINGS: The ventricles and sulci are normal in size and configuration without significant volume loss or hydrocephalus. There is no abnormal attenuation within the brain parenchyma. No territorial loss of acosta-white differentiation. No acute intracranial hemorrhage or extra-axial fluid collection. No mass lesion, significant mass effect, or herniation pattern. Expanded partially empty sella. The orbits are grossly normal. Partially imaged sclerotic wall thickening and trace mucosal disease of the left maxillary sinus. No mastoid effusion. Arrested pneumatization of the right sphenoid bone, a normal anatomic variant. Osseous structures are intact. CT/CT head/brain wo IV con IMPRESSION: No acute intracranial abnormality. Specifically, no CT evidence of acute intracranial hemorrhage, significant mass effect, hydrocephalus, or large territorial infarction. Expanded partially empty sella. Critical Care Time Critical Care Time Critical Care Time: Yes Total Critical Care Time: 30 Attestation: I have personally provided critical care time. Time includes review of lab data, radiology results, discussion with consultants, and monitoring for potential decompensation. Intervention performed as documented. Discharge Plan Discharge Clinical Impression: Migraine Patient Disposition: Home, Self-Care Instructions: Migraine Headache (ED) Additional Instructions: Your prescriptions were sent to [facility] in [address] Please follow-up with your primary care physician tomorrow. If you have any worsening or new symptoms, please return to the emergency room or call 911 Prescriptions: New sumatriptan succinate 50 mg tablet See Rx Instructions .ROUTE .COMPLEX Qty: 10 0RF Rx Instructions: take 1 tab at onset of headache; if no relief may repeat 1 tab after at least 2 hrs; max = 4 tabs/24 hr metoclopramide HCl 5 mg tablet 5 mg PO .B.i.d. PRN (Reason: nausea and vomiting) Qty: 10 0RF No Action hydrocodone-homatropine [Hycodan] 5-1.5 mg/5 mL (5 mL) syrup 5 ml PO Q6H PRN (Reason: cough) Qty: 60 0RF hydrocortisone acetate [Anusol-HC] 25 mg suppository 25 mg OR BID Qty: 12 0RF docusate sodium [Colace] 100 mg capsule 200 mg PO DAILY Qty: 60 0RF polyethylene glycol 3350 [Miralax] 17 gram/dose powder 17 g PO DAILY Qty: 510 0RF cyclobenzaprine 10 mg tablet 10 mg PO Q8H Qty: 20 0RF tramadol 50 mg tablet 50 mg PO Q6H PRN (Reason: pain) Qty: 20 0RF lorazepam [Ativan] 1 mg tablet 1 mg PO BID PRN (Reason: anxiety) Qty: 8 0RF trazodone 50 mg tablet 50 mg PO BEDTIME PRN famotidine 20 mg tablet 20 mg PO BID pantoprazole 40 mg tablet,delayed release (DR/EC) 40 mg PO DAILY buspirone 30 mg tablet 30 mg PO BID loratadine 10 mg capsule 10 mg PO DAILY risperidone [Risperdal] 2 mg tablet 2 mg PO DAILY cyclobenzaprine 5 mg tablet 5 mg PO BEDTIME PRN (Reason: muscle spasm) 90 Days Qty: 90 3RF Interventions: ED Discharge Assessment Last Done: 03/15/23 21:32 Discharge Date/Time: 03/15/23 21:32
[2023-03-15 19:41] LABS: MANUAL DIFF FLAG NO
[2023-03-15 19:43] LABS: Basophils Absolute Auto 0.1 X10*3/uL (0.0-0.2); Eosinophils Absolute Auto 0.1 X10*3/uL (0.0-0.4); Eosinophils Percent Auto 1.1 % (0-4); Hematocrit 37.5 % (37.0-47.0); Hemoglobin 12.5 g/dl (12.0-16.0); Imm Gran Abs Auto 0.01 X10*3/uL (0.00-0.03); Imm Gran Pct Auto 0.2 % (0.0-0.4); Lymphocytes Absolute Auto 1.8 X10*3/uL (1.2-4.9); Lymphocytes Percent Auto 34.4 % (20-40); Mean Corpuscular HGB Conc 33.3 g/dl (31.0-35.0); Mean Corpuscular Hemoglobin 29.1 pg (27.0-33.0); Mean Corpuscular Volume 87.2 fL (80.0-98.0); Mean Platelet Volume 10.1 fL (9.4-12.3); Monocytes Percent Auto 18.1 % (2-11); Neutrophils Absolute Auto 2.4 x10*3/uL (2.0-8.3); Neutrophils Percent Auto 45.2 % (45-73); Platelet Count 203 X10*3/uL (160-400); White Blood Count 5.2 X10*3/uL (4.8-10.8)
[2023-03-15 19:59] LABS: Alanine Aminotransferase 35 U/L (0-31); Albumin Level 4.1 g/dL (3.5-5.0); Alkaline Phosphatase 98 U/L (39-117); Anion Gap 13 (12-20); Aspartate Amino Transferase 37 U/L (5-31); Bilirubin Total 0.2 mg/dL (0.0-1.0); Blood Urea Nitrogen 17 mg/dL (9-16); Calcium 9.4 mg/dL (8.4-10.2); Carbon Dioxide 26 mmol/L (22-29); Chloride 109 mmol/L (96-108); Creatinine Clr Calc Pharmacy 57.3; Estimated Glomerular Filt Rate 59; Glucose Random 117 mg/dL (60-115); Potassium 4.5 mmol/L (3.3-5.1); Sodium 143 mmol/L (135-145); Total Protein 8.3 g/dL (6.5-8.0)
[2023-03-15 20:21] LABS: Influenza A PCR NEGATIVE (Negative); Influenza B PCR NEGATIVE (Negative); Resp Syncy Virus RNA Qual PCR NEGATIVE (Negative); SARS COV2 PCR INHOUSE NEGATIVE (Negative)
[2023-03-15] MEDS: 0.9 % Sodium Chloride 1,000 ML 999 ML IVCONT (20:22)
[2023-03-15] MEDS: Ketorolac Tromethamine 30 MG/ML VIAL IVPUSH (20:23)
[2023-03-15] MEDS: diphenhydrAMINE HCL 50 MG/ML VIAL 25 MG IVPUSH (20:23)
[2023-03-15] MEDS: Metoclopramide HCl 10 MG/2 ML VIAL IVPUSH (20:27)
== END 2023-03-15 21:32 | disposition home or self-care (01) ==
PROVIDERS: Physician Assistant; Emergency Provider Emergency Medicine; PCP Internal Medicine
DX: G43.909 Migraine, unspecified, not intractable, without status migrainosus (principal); R11.2 Nausea with vomiting, unspecified; Z20.828 Contact with and (suspected) exposure to other viral communicable diseases; Z20.822 Contact with and (suspected) exposure to COVID-19; Z87.891 Personal history of nicotine dependence; Z79.899 Other long term (current) drug therapy
CPT/HCPCS: 0241U; 70450; 80053; 85025; 96361; 96374; 96375; 99283; 99284; J1200; J1885; J2765

== ENCOUNTER 2023-03-27 02:53 | Emergency (ER) | payer OTHER, SELFPAY ==
[2023-03-27 02:57] VITALS: BP 174/75; PULSE 68; RESP 18; TEMP 36.8; O2SAT 98; BMI 28.0
[2023-03-27 03:43] LABS: IDNOW Serial# 08D9AD1C; Strep A Nucleic Acid Negative (Negative)
[2023-03-27 04:08] LABS: Influenza A PCR NEGATIVE (Negative); Influenza B PCR NEGATIVE (Negative); Resp Syncy Virus RNA Qual PCR NEGATIVE (Negative); SARS COV2 PCR INHOUSE NEGATIVE (Negative)
--- NOTE | 2023-03-27 08:34 | ED.URI ---
HPI - URI/Sore Throat General Chief Complaint: Upper Respiratory Symptoms Stated Complaint: Sore throat Time Seen by Provider: 03/27/23 08:18 Source: patient, RN notes reviewed and old records reviewed Mode of arrival: ambulatory History of Present Illness HPI Narrative: 62-year-old female with a past medical history of GERD, asthma, vocal cord normally, presenting to the ED complaining of sore throat, dry cough, right ear pain x few days. Admits throat feels dry. Denies fever, drainage from ear, hearing loss, difficulty or inability to swallow, SOB/CP, travel, sick contacts MD elicited complaint: cough, sore throat and nasal congestion Related Data Home Medications Medication Instructions Recorded Confirmed buspirone 30 mg tablet 30 mg PO BID 03/04/20 03/04/20 famotidine 20 mg tablet 20 mg PO BID 03/04/20 03/04/20 loratadine 10 mg capsule 10 mg PO DAILY 03/04/20 03/04/20 pantoprazole 40 mg tablet,delayed 40 mg PO DAILY 03/04/20 03/04/20 release trazodone 50 mg tablet 50 mg PO BEDTIME PRN 03/04/20 03/04/20 risperidone 2 mg tablet (Risperdal) 2 mg PO DAILY 10/13/20 Previous Rx's Medication Instructions Recorded cyclobenzaprine 5 mg tablet 5 mg PO BEDTIME PRN muscle spasm 10/13/20 90 days #90 tabs hydrocodone-homatropine 5 mg-1.5 5 ml PO Q6H PRN cough #60 mL 10/21/20 mg/5 mL (5 mL) oral syrup (Hycodan) docusate sodium 100 mg capsule 200 mg (2 x 100 mg) PO DAILY #60 03/27/21 (Colace) caps hydrocortisone acetate 25 mg 25 mg NM BID #12 ea 03/27/21 rectal suppository (Anusol-HC) polyethylene glycol 3350 17 17 g PO DAILY #510 grams 03/27/21 gram/dose oral powder (Miralax) cyclobenzaprine 10 mg tablet 10 mg PO Q8H #20 tabs 02/22/22 tramadol 50 mg tablet 50 mg PO Q6H PRN pain #20 tabs 02/22/22 lorazepam 1 mg tablet (Ativan) 1 mg PO BID PRN anxiety #8 tabs 12/16/22 metoclopramide HCl 5 mg tablet 5 mg PO .B.i.d. PRN nausea and 03/15/23 vomiting #10 tabs sumatriptan succinate 50 mg tablet See Rx Instructions PO .COMPLEX 03/15/23 #10 tabs amoxicillin 875 mg-potassium 1 tab PO BID 7 days #14 tabs 03/27/23 clavulanate 125 mg tablet Allergies Allergy/AdvReac Type Severity Reaction Status Date / Time aspirin [ASA] Allergy Intermediate NAUSEA & Verified 02/11/23 05:18 VOMITING, stomach upset, nausea and vomiting Review of Systems Review of Systems: Constitutional: No Fever, + Chills ENT/Mouth: + Ear Pain, No Nasal Congestion, No Hoarseness, +sore throat, No Rhinorrhea, No Swallowing Difficulty Cardiovascular: No Chest Pain, No SOB Respiratory: No Cough, No Sputum, No Wheezing Gastrointestinal: No Nausea, No Vomiting, No Diarrhea, No Constipation, No Abdominal pain Musculoskeletal: No joint pain, No Myalgias, No Joint Swelling Skin: No Skin Lesions, No rash Neuro: No Weakness Yes all other systems are reviewed and are negative Constitutional: Constitutional: Reports as per [facility] Past Medical History Attestation statement: The following information was validated with the patient. Source: old records reviewed Medical History Asthma Vocal cord anomaly Bloating Acid reflux Social History Social History Household Members Other:: alone Alcohol intake: never Patient Tobacco Use Status: Former Tobacco user Tobacco use type: Cigarette Years Smoked: quit 12 years ago Advance Directives: No Advance Directives Information Provided: No Current occupational status: unemployed Physical Exam Vital Signs: Vital Signs: Last Vital Signs Temp 98.0 F 03/27/23 09:02 Pulse 73 03/27/23 09:02 Resp 15 03/27/23 09:02 BP 174/79 H 03/27/23 09:02 Pulse Ox 96 03/27/23 09:02 O2 Del Method Room Air 03/27/23 09:02 BMI result Body Mass Index 28.0 Const: General: cooperative, healthy appearing and no acute distress Orientation/consciousness: patient oriented x3 Limitations: no limitations HEENT: Head: Yes normal to inspection and Yes atraumatic Ears: hearing grossly normal bilaterally, external ears normal, mastoids normal and TM abnormal with fluid behind the TM on the left General nose exam: Normal external nose present Face and sinus: Yes normal facial exam Mouth: no drooling Throat: Yes uvula midline, Yes abnormal tonsil (Bilaterally erythematous and swollen), No peritonsillar mass, No uvula laterally displaced and No uvular edema Eyes: General: appearance normal, both eyes and all related structures EOM: EOMs intact bilaterally Neck: Neck: Yes normal visual inspection and Yes no meningeal signs Resp: Effort & Inspection: normal respiratory effort, no respiratory distress and no stridor Auscultation: clear to auscultation bilaterally Cardio: Rate: regular rate Heart sounds: S1 normal heart sound present and S2 normal heart sound present Skin: Rashes: no rashes Wounds: no wounds Neuro: General: patient oriented x3, tone normal and no meningeal signs Cranial nerves: Yes CN's II-XII intact bilaterally Gait exam (Neuro): Normal gait present Extrem: General: Yes normal to inspection Course Course Course Narrative: -0837--COVID/FLU/RSV and rapid strep negative > clinically patient with early otitis/strep pharyngitis with shared decision-making will treat with p.o. antibiotics. Will also give p.o. viscous lidocaine in the ED Results discussed with patient including worrisome signs and symptoms and strict return precautions, and when to return to the emergency department. They verbalized understanding and feel safe for discharge at this time. Medications Administered Discontinued Medications Generic Name Dose Route Start Last Admin Trade Name Freq PRN Reason Stop Dose Admin Lidocaine HCl 5 ml 03/27/23 08:28 03/27/23 08:59 Lidocaine Hcl Viscous 2 % 15 Ml Solution MUCOUS MEM 03/27/23 08:29 5 ml ONCE ONE Administration Medical Decision Making Medical Decision Making MDM Narrative: 62-year-old female with a past medical history of GERD, asthma, vocal cord normally, presenting to the ED complaining of sore throat, dry cough, right ear pain x few days. On exam vital signs stable, NAD, nontoxic appearing, right ear with fluid behind TMs, bilateral tonsillar erythema with swelling noted. Uvula midline, no evidence of [employer] or retropharyngeal abscess. Concern for otitis media and strep pharyngitis vs viral syndrome. Plan: Viral testing, rapid strep Please refer to course for remaining clinical decision making, interpretation of labs/imaging results, and discussions with consultants and/or family members. Differential Diagnosis Differential Diagnoses: The differential diagnosis associated with the presentation includes As above Lab Data MDM Lab Attestation statement: I reviewed the patient's lab results. Labs: Lab Results 03/27/23 Range/Units 03:21 Influenza Type A (PCR) NEGATIVE (Negative) Influenza Type B (PCR) NEGATIVE (Negative) RSV RNA Qual (PCR) NEGATIVE (Negative) SARS-CoV-2 RNA (RT-PCR) NEGATIVE (Negative) S. pyogenes GrpA XAVIER Negative (Negative) External Record Review External record reviewed: Inpatient record, Office record, Outpatient record, Prior outpatient labs, Prior outpatient radiology, Primary care record and Outside ED record Tests considered The following testing was considered but not selected: As above Prescription Management I considered prescription management with: Pain Medication and Antibiotic Discharge Plan Discharge Clinical Impression: Pharyngitis, Otitis media Patient Disposition: Home, Self-Care Instructions: Pharyngitis (ED), Ear Infection (ED) Additional Instructions: Augmentin as an antibiotic please take as prescribed Gargle with warm salt water Follow-up with your doctor Make sure youre staying hydrated If this is persist or worsen return to the emergency department Augmentin jovanny antibi?renae, t?andersen seg?n lo prescrito. Nora g?rgaras con agua tibia con lamonte Seguimiento con arias m?dico Aseg?rate de mantenerte hidratado. Si esto persiste o empeora, regrese al departamento de emergencias. Prescriptions: New amoxicillin-pot clavulanate 875-125 mg tablet 1 tab PO BID 7 Days Qty: 14 0RF No Action hydrocodone-homatropine [Hycodan] 5-1.5 mg/5 mL (5 mL) syrup 5 ml PO Q6H PRN (Reason: cough) Qty: 60 0RF hydrocortisone acetate [Anusol-HC] 25 mg suppository 25 mg NM BID Qty: 12 0RF docusate sodium [Colace] 100 mg capsule 200 mg PO DAILY Qty: 60 0RF polyethylene glycol 3350 [Miralax] 17 gram/dose powder 17 g PO DAILY Qty: 510 0RF cyclobenzaprine 10 mg tablet 10 mg PO Q8H Qty: 20 0RF tramadol 50 mg tablet 50 mg PO Q6H PRN (Reason: pain) Qty: 20 0RF sumatriptan succinate 50 mg tablet See Rx Instructions .ROUTE .COMPLEX Qty: 10 0RF Rx Instructions: take 1 tab at onset of headache; if no relief may repeat 1 tab after at least 2 hrs; max = 4 tabs/24 hr metoclopramide HCl 5 mg tablet 5 mg PO .B.i.d. PRN (Reason: nausea and vomiting) Qty: 10 0RF lorazepam [Ativan] 1 mg tablet 1 mg PO BID PRN (Reason: anxiety) Qty: 8 0RF trazodone 50 mg tablet 50 mg PO BEDTIME PRN famotidine 20 mg tablet 20 mg PO BID pantoprazole 40 mg tablet,delayed release (DR/EC) 40 mg PO DAILY buspirone 30 mg tablet 30 mg PO BID loratadine 10 mg capsule 10 mg PO DAILY risperidone [Risperdal] 2 mg tablet 2 mg PO DAILY cyclobenzaprine 5 mg tablet 5 mg PO BEDTIME PRN (Reason: muscle spasm) 90 Days Qty: 90 3RF Referrals: Daphne Almanza MD [Primary Care Provider] - 1 week Interventions: ED Discharge Assessment Last Done: 03/27/23 09:04 Discharge Date/Time: 03/27/23 09:04 Print Language: Eritrean
[2023-03-27] MEDS: Lidocaine HCl Viscous 2 % 15 ML SOLUTION 5 ML MUCOUS MEM (08:59)
[2023-03-27 09:02] VITALS: BP 174/79; PULSE 73; RESP 15; TEMP 36.7; O2SAT 96
== END 2023-03-27 09:04 | disposition home or self-care (01) ==
PROVIDERS: Emergency Provider Emergency Medicine; PCP Internal Medicine
DX: J02.9 Acute pharyngitis, unspecified (principal); H66.91 Otitis media, unspecified, right ear; Z87.891 Personal history of nicotine dependence; Z20.822 Contact with and (suspected) exposure to COVID-19; Z20.828 Contact with and (suspected) exposure to other viral communicable diseases
CPT/HCPCS: 0241U; 87651; 99283

== ENCOUNTER 2023-05-20 12:48 | Emergency (ER) | payer OTHER, SELFPAY ==
--- NOTE | ~2023-05-20 | XR_ITS ---
EXAMINATION: XR CHEST CLINICAL INFORMATION: Cough. Chest pain. COMPARISON: Previous chest x-ray January 2023 TECHNIQUE: 2 views of the chest were obtained. FINDINGS: No significant abnormality is noted involving the heart, lungs, mediastinum, bony thorax or soft tissues. XR/XR chest 2V IMPRESSION: Unremarkable examination.
--- NOTE | 2023-05-20 12:49 | ECG_ITS ---
Test Reason : CP Blood Pressure : / mmHG Vent. Rate : 080 BPM Atrial Rate : 080 BPM P-R Int : 140 ms QRS Dur : 076 ms QT Int : 366 ms P-R-T Axes : 059 061 038 degrees QTc Int : 422 ms Normal sinus rhythm Normal ECG When compared with ECG of 11-FEB-2023 05:20, No significant change was found Referred By: Merle Barrett Electronically Signed By:JAVON SCHUMACHER MD
--- NOTE | 2023-05-20 13:07 | ED_ITS ---
HPI - General Adult General Chief complaint: Upper Respiratory Symptoms Stated complaint: chest pain/ SOB? Time Seen by Provider: 05/20/23 14:43 Source: patient Mode of arrival: ambulatory Limitations: no limitations History of Present Illness HPI narrative: 62-year-old female here with complaints of 4 days of cough, congestion, sore throat, headache, body aches. She denies any difficulty breathing, abdominal p ain, vomiting, diarrhea, fevers, neck pain, neck stiffness, skin rash. No recent sick contact or travel Related Data Home Medications Medication Instructions Recorded Confirmed buspirone 30 mg tablet 30 mg PO BID 03/04/20 03/04/20 famotidine 20 mg tablet 20 mg PO BID 03/04/20 03/04/20 loratadine 10 mg capsule 10 mg PO DAILY 03/04/20 03/04/20 pantoprazole 40 mg tablet,delayed 40 mg PO DAILY 03/04/20 03/04/20 release trazodone 50 mg tablet 50 mg PO BEDTIME PRN 03/04/20 03/04/20 risperidone 2 mg tablet (Risperdal) 2 mg PO DAILY 10/13/20 Previous Rx's Medication Instructions Recorded cyclobenzaprine 5 mg tablet 5 mg PO BEDTIME PRN muscle spasm 10/13/20 90 days #90 tabs hydrocodone-homatropine 5 mg-1.5 5 ml PO Q6H PRN cough #60 mL 10/21/20 mg/5 mL (5 mL) oral syrup (Hycodan) docusate sodium 100 mg capsule 200 mg (2 x 100 mg) PO DAILY #60 03/27/21 (Colace) caps hydrocortisone acetate 25 mg 25 mg NV BID #12 ea 03/27/21 rectal suppository (Anusol-HC) polyethylene glycol 3350 17 17 g PO DAILY #510 grams 03/27/21 gram/dose oral powder (Miralax) cyclobenzaprine 10 mg tablet 10 mg PO Q8H #20 tabs 02/22/22 tramadol 50 mg tablet 50 mg PO Q6H PRN pain #20 tabs 02/22/22 lorazepam 1 mg tablet (Ativan) 1 mg PO BID PRN anxiety #8 tabs 12/16/22 metoclopramide HCl 5 mg tablet 5 mg PO .B.i.d. PRN nausea and 03/15/23 vomiting #10 tabs sumatriptan succinate 50 mg tablet See Rx Instructions PO .COMPLEX 03/15/23 #10 tabs amoxicillin 875 mg-potassium 1 tab PO BID 7 days #14 tabs 03/27/23 clavulanate 125 mg tablet Allergies Allergy/AdvReac Type Severity Reaction Status Date / Time aspirin [ASA] Allergy Intermediate NAUSEA & Verified 05/20/23 13:08 VOMITING, stomach upset, nausea and vomiting Review of Systems Review of Systems: Yes all other systems are reviewed and are negative Constitutional: Constitutional: Reports no additional constitutional complaints, Denies body ache(s), Denies chills, Denies fever(s), Reports headache(s) and Denies weakness Eyes: Eyes: Reports no additional eye complaints and Denies change in vision ENT: Reports system reviewed and no additional complaints, except as documented, Denies dizziness, Reports headache(s), Denies nasal congestion, Denies nasal discharge, Denies neck pain and Reports sinus pressure Cardiovascular: Cardiovascular: Reports no additional cardiovascular complaints, Denies chest pain, Denies leg edema and Denies dyspnea Respiratory: Respiratory: Reports no additional respiratory complaints, Reports cough and Denies dyspnea Gastrointestinal: Gastrointestinal: Reports no additional gastrointestinal complaints, Denies abdominal pain, Denies diarrhea, Denies nausea and Denies vomiting Genitourinary: Genitourinary: Reports no additional female genitourinary complaints and Denies urinary incontinence Musculoskeletal: Musculoskeletal: Reports no additional musculoskeletal complaints, Denies back pain, Denies arthralgias, Denies joint swelling, Denies neck pain, Denies numbness and Denies tingling Integumentary/Breasts: Skin/Breast: Reports system reviewed and no additional complaints, except as docu and Denies rash Neurologic: Reports system reviewed and no additional complaints, except as documented, Denies Abnormal speech present, Denies dizziness, Reports headache(s), Denies numbness, Denies tingling and Denies weakness [facility] Past Medical History Attestation statement: The following information was validated with the patient. Source: old records reviewed and nursing notes reviewed Medical History Asthma Vocal cord anomaly Bloating Acid reflux Social History Social History Household Members Other:: alone Alcohol intake: never Patient Tobacco Use Status: Former Tobacco user Tobacco use type: Cigarette Years Smoked: quit 12 years ago Advance Directives: No Advance Directives Information Provided: No Current occupational status: unemployed Physical Exam ED Vital Signs: Vital Signs - 24 hr 05/20/23 13:08 Temperature 98.4 F Pulse Rate 80 Respiratory Rate 18 Blood Pressure 136/97 H Pulse Oximetry 97 Oxygen Delivery Method Room Air BMI result Body Mass Index 27.5 Const General: cooperative, healthy appearing, comfortable and no acute distress Orientation/consciousness: patient oriented x3 Limitations: no limitations HENMT Head: Yes normal to inspection Ears: hearing grossly normal bilaterally and TM's normal bilaterally General nose exam: Normal external nose present Face and sinus: Yes normal facial exam Mouth: Normal oral and palatal mucosa present Throat: Yes posterior oropharynx normal, Yes tonsils normal and Yes uvula midline Eyes General: appearance normal, both eyes and all related structures Pupils: Equal, round and reactive pupils present Neck Neck: Yes normal visual inspection, Yes full ROM, Yes no lymphadenopathy and Yes no meningeal signs Chest Chest palpation & inspection: normal inspection of the chest Resp Effort & Inspection: normal respiratory effort Auscultation: clear to auscultation bilaterally Cardio Rate: regular rate Rhythm: regular rhythm Peripheral pulses: Peripheral pulses 2+ throughout GI Inspection: Yes normal to inspection Palpation (GI): Soft to palpation and nontender Auscultation: normal bowel sounds Back/Spine/Pelvis Thoracic/Lumbar Spine: thoracic and lumbar spine normal to inspection Skin General skin exam: no rashes or lesions noted Neuro General: patient oriented x3, no meningeal signs, no focal motor deficits and normal sensation to monofilament Cranial nerves: Yes Equal, round and reactive pupils present Cognition (Neuro): normal cognition Speech: No Abnormal speech present Gait exam (Neuro): Normal gait present Motor exam (neuro): 5/5 motor strength present throughout Extrem General: Yes normal to inspection, Yes no pedal edema and Yes no calf tenderness Course Course Course Narrative: This is an RME: Additional HPI, ROS, PE not included below will be deferred to primary provider. Patient is a 62-year-old female who presents emergency department for evaluation of cough, throat itching, chest tightness during episodes of coughing, headache since yesterday. Denies fevers, chills. Denies known sick contacts. Plan: viral testing, EKG Medical Decision Making Medical Decision Making [facility] Narrative: 62-year-old female here with complaints of 4 days of cough, congestion, sore throat, headache, body aches. She denies any difficulty breathing, abdominal pain, vomiting, diarrhea, fevers, neck pain, neck stiffness, skin rash. No recent sick contact or travel exam is benign. Vitals are stable. Will send viral testing, obtain chest x- ray, review EKG from triage Differential Diagnosis Differential Diagnoses: The differential diagnosis associated with the presentation includes viral syndrome, low concern for ACS, PE or pneumonia Admission/Observation Consideration of admission/observation: Escalation of care including admis ermelinda/observation considered Lab Data [facility] Lab Attestation statement: I reviewed the patient's lab results. Labs: Lab Results 05/20/23 Range/Units 14:06 Influenza Type A (PCR) NEGATIVE (Negative) Influenza Type B (PCR) NEGATIVE (Negative) RSV RNA Qual (PCR) NEGATIVE (Negative) SARS-CoV-2 RNA (RT-PCR) NEGATIVE (Negative) Independent Interpretation I performed an independent interpretation of an: EKG and Plain X-Ray Interpretation: I independently reviewed the EKG which shows normal sinus rhythm with a rate of 80, normal NV, normal QRS, normal QT I independently viewed the chest x-ray and agree with the radiology report Radiology Impression Discussion of test interpretation with radiology: I have reviewed the radiologist's reading. Radiologist Impression: [place] [id number] XRay Report Signed Patient: Nila Gomez MR#: [id number] : 1960 Acct:[id number] Age/Sex: 62 / F ADM Date: 05/20/23 Loc: .ED Attending Dr: Ordering Physician: Merle Barrett CNP Date of Service: 05/20/23 Procedure(s): XR chest 2V Accession Number(s): [id number] cc: Merle Barrett CNP; Daphne Almanza MD~ EXAMINATION: XR CHEST CLINICAL INFORMATION: Cough. Chest pain. COMPARISON: Previous chest x-ray January 2023 TECHNIQUE: 2 views of the chest were obtained. FINDINGS: No significant abnormality is noted involving the heart, lungs, mediastinum, bony thorax or soft tissues. XR/XR chest 2V IMPRESSION: Unremarkable examination. Prescription Management I considered prescription management with: Antibiotic Discharge Plan Discharge Clinical Impression: Viral infection Patient Disposition: Home, Self-Care Instructions: Viral Syndrome (ED) Additional Instructions: testing for flu, COVID and RSv are negative Increase fluids, rest Take motrin or tylenol for pain as needed EKG is normal Chest x-ray shows no signs of infection Las pruebas de gripe, COVID y RSv son negativas. Aumentar l?quidos, descansar. [place] motrin o tylenol para el dolor seg?n sea necesario El electrocardiograma es normal. La radiograf?a de t?rax no muestra signos de infecci?n Prescriptions: No Action hydrocodone-homatropine [Hycodan] 5-1.5 mg/5 mL (5 mL) syrup 5 ml PO Q6H PRN (Reason: cough) Qty: 60 0RF hydrocortisone acetate [Anusol-HC] 25 mg suppository 25 mg NV BID Qty: 12 0RF docusate sodium [Colace] 100 mg capsule 200 mg PO DAILY Qty: 60 0RF polyethylene glycol 3350 [Miralax] 17 gram/dose powder 17 g PO DAILY Qty: 510 0RF cyclobenzaprine 10 mg tablet 10 mg PO Q8H Qty: 20 0RF tramadol 50 mg tablet 50 mg PO Q6H PRN (Reason: pain) Qty: 20 0RF sumatriptan succinate 50 mg tablet See Rx Instructions .ROUTE .COMPLEX Qty: 10 0RF Rx Instructions: take 1 tab at onset of headache; if no relief may repeat 1 tab after at least 2 hrs; max = 4 tabs/24 hr metoclopramide HCl 5 mg tablet 5 mg PO .B.i.d. PRN (Reason: nausea and vomiting) Qty: 10 0RF lorazepam [Ativan] 1 mg tablet 1 mg PO BID PRN (Reason: anxiety) Qty: 8 0RF amoxicillin-pot clavulanate 875-125 mg tablet 1 tab PO BID 7 Days Qty: 14 0RF trazodone 50 mg tablet 50 mg PO BEDTIME PRN famotidine 20 mg tablet 20 mg PO BID pantoprazole 40 mg tablet,delayed release (DR/EC) 40 mg PO DAILY buspirone 30 mg tablet 30 mg PO BID loratadine 10 mg capsule 10 mg PO DAILY risperidone [Risperdal] 2 mg tablet 2 mg PO DAILY cyclobenzaprine 5 mg tablet 5 mg PO BEDTIME PRN (Reason: muscle spasm) 90 Days Qty: 90 3RF Referrals: Daphne Almanza MD [Primary Care Provider] - 1 week Print Language: Nepali
[2023-05-20 13:08] VITALS: BP 136/97; PULSE 80; RESP 18; TEMP 36.9; O2SAT 97; BMI 27.5
[2023-05-20 14:56] LABS: Influenza A PCR NEGATIVE (Negative); Influenza B PCR NEGATIVE (Negative); Resp Syncy Virus RNA Qual PCR NEGATIVE (Negative); SARS COV2 PCR INHOUSE NEGATIVE (Negative)
== END 2023-05-20 15:23 | disposition home or self-care (01) ==
PROVIDERS: Nurse Practitioner Family; Emergency Provider Emergency Medicine; PCP Internal Medicine
DX: B34.9 Viral infection, unspecified (principal); R05.9 Cough, unspecified; J02.9 Acute pharyngitis, unspecified; R51.9 Headache, unspecified; R09.89 Other specified symptoms and signs involving the circulatory and respiratory systems
CPT/HCPCS: 0241U; 71046; 93005; 99284

== ENCOUNTER → 2023-05-20 12:49 | Outpatient (BNV) | payer OTHER, SELFPAY | PROVIDERS: Emergency Provider Emergency Medicine; PCP Internal Medicine; Visit Provider Internal Medicine Cardiovascular Disease | DX: R94.31 Abnormal electrocardiogram [ECG] [EKG] (principal) | CPT/HCPCS: 93010 ==

== ENCOUNTER 2023-10-23 08:50 | Outpatient (AMB) | payer OTHER, SELFPAY ==
[2023-10-23 08:53] VITALS: BP 132/80; PULSE 64; O2SAT 97; BMI 27.3
--- NOTE | 2023-10-23 08:53 | MHC.OFFVIS ---
Vital Signs 10/23/23 08:53 Height 5 ft 3 in Weight 153 lb 14.122 oz BMI 27.3 BP 132/80 Blood Pressure Location Rt brachial Pulse 64 Pulse Source Pulse Oximeter Pulse Oximetry (%) 97 Intake Visit Reasons: IA/lm Intake Note: New patient, externally referred, presents to office today for inflammatory arthritis. Joints affected: hands and shoulders Pain began approx:she states it began around 5 months ago. Has tried:Prednisone prescribed by primary care doctor. [employer] Required: Yes [employer] Services: [employer] Present [employer] Name: Benson [id number] Allergies aspirin [ASA] Allergy (Intermediate, Verified 10/23/23 08:58) NAUSEA & VOMITING, stomach upset, nausea and vomiting Medication List - Last Reconciled 10/23/23 by Roque Linares MD buspirone 30 mg PO BID cyclobenzaprine 10 mg PO Q8H cyclobenzaprine 5 mg PO BEDTIME PRN 90 days docusate sodium (Colace) 200 mg (2 x 100 mg) PO DAILY famotidine 20 mg PO BID hydrocodone-homatropine 5-1.5 mg/5 mL (5 mL) (Hycodan) 5 mL PO Q6H PRN hydrocortisone acetate (Anusol-HC) 25 mg ND BID loratadine 10 mg PO DAILY lorazepam (Ativan) 1 mg PO BID PRN metoclopramide HCl 5 mg PO .B.i.d. PRN pantoprazole 40 mg PO DAILY polyethylene glycol 3350 (Miralax) 17 grams PO DAILY risperidone (Risperdal) 2 mg PO DAILY sumatriptan succinate take 1 tab at onset of headache; if no relief may repeat 1 tab after at least 2 hrs; max = 4 tabs/24 hr trazodone 50 mg PO BEDTIME PRN HPI Comments Details: This is a 62-year-old female with history of fibromyalgia who presents for follow-up. She was was last seen by Dr. Mckinnon 09/2020. About 5 months ago patient has been having bilateral hand pain. She has morning stiffness of her hands lasting approximately 1 hour. It is mostly in her right middle finger. She has tried taking Tylenol and ibuprofen up to 800 mg a day without much relief. She did not notice much swelling. She also has pain in the sole of her toes bilaterally also worse in the morning. She was evaluated by her PCP and prescribed prednisone would provided at least 90% relief. She denies any fevers, weight loss, skin rashes, history of DVT/PE. History of recurrent miscarriages. She is unaware of any family history of an autoimmune rheumatic disease [facility] Medical History Carpal tunnel syndrome Asthma Vocal cord anomaly Bloating Acid reflux Surgical History (Reviewed 10/23/23 @ 09: by Roque Linares MD) Hx of tubal ligation Social History (Reviewed 10/23/23 @ 09: by Roque Linares MD) Household Members Other:: alone Alcohol intake: never Patient Tobacco Use Status: Former Tobacco user Tobacco use type: Cigarette Years Smoked: quit 12 years ago Current occupational status: unemployed Female Reproductive History Menstrual Total pregnancies: 10 Full term: 8 Number of Living Children: 7 Ab induced: 2 Review of Systems Const Reports fatigue, Reports headache(s) and Reports weakness Eyes Reports dry eyes and Reports itchy eyes ENT Reports dysphagia, Reports dizziness and Reports headache(s) Card Reports dyspnea Resp Reports dyspnea GI Reports dysphagia, Reports diarrhea and Reports nausea Musc Reports muscle weakness Neuro Reports dizziness, Reports headache(s) and Reports weakness Psych Reports abnormal sleep pattern, Reports anxiety and Reports depression Endo Reports fatigue Aller/Immun Reports itchy eyes Physical Exam Vital Signs: Last Vital Signs Pulse 64 10/23/23 08:53 BP 132/80 10/23/23 08:53 Pulse Ox 97 10/23/23 08:53 BMI result Body Mass Index 27.3 Const General: cooperative, healthy appearing and comfortable Nutritional Appearance: overweight Orientation/consciousness: patient oriented x3 Limitations: no limitations HEENT Head: Yes normocephalic and Yes atraumatic Mouth: moist mucous membranes Resp Effort & Inspection: normal respiratory effort and able to speak in complete sentences Auscultation: clear to auscultation bilaterally Cardio Rate: regular rate Rhythm: regular rhythm Skin General skin exam: no rashes or lesions noted Neuro General: patient oriented x3 Extrem Other: Osteoarthritic changes of both hands no noticeable swelling Right 3rd and 4th flexor tendon tenderness Left 3rd and 4th flexor tendon tenderness There is minimal triggering of 2nd through 5th her tendons bilaterally Negative MCP squeeze test bilaterally Normal nailfold capillaroscopy No elbow or shoulder pain with full range of motion Bilateral knee crepitus No ankle swelling or tenderness Diffusely tender MTPs on the sole aspect both feet Few fibromyalgia tender points Results Reviewed Results Reviewed: X-RAY EXAM OF HAND, 3+ VIEWS Exam Date: 06/27/2023? 1:27 PM Ordering Diagnosis: Pain in both hands Inflammatory arthritis ? ? HISTORY: acute inflammatory arthritis ? TECHNIQUE: AP, lateral, and oblique radiographs of the bilateral hands? ? COMPARISON: None ? FINDINGS:? There is normal mineralization with no evidence of fracture or malalignment.? The visualized? articulations are normal.? No erosive arthropathy.? No significant joint space narrowing.? No? significant soft tissue swelling is identified.? ? IMPRESSION IMPRESSION:? No acute fracture or dislocation of the bilateral hands. Assessment & Plan Assessment & Plan (1) Bilateral hand pain: Code(s): M79.641 - Pain in right hand; M79.642 - Pain in left hand Category: Medical Plan: This is a 62-year-old female with history of fibromyalgia who presents for evaluation of bilateral hand pain for 5 months. On exam there are findings of osteoarthritis as well as early trigger fingers in multiple fingers most symptomatic is bilateral 3rd and 4th flexor tendons. However given relatively abrupt onset of relatively symptoms of arthritis. Order comprehensive serology to screen for underlying autoimmune rheumatic disease. Check bilateral hand and wrist ultrasound to evaluate for synovitis/tenosynovitis Plan I spent 48 minutes reviewing patient's chart, evaluating patient, ordering diagnostic workup, counseling patient and documenting in the chart Orders: Orders US extremity nonvascular Today M65.9 - Synovitis and tenosynovitis, unspecified Complete Blood Count Auto Diff Today M32.9 - Systemic lupus erythematosus, unspecified C Reactive Protein Today M32.9 - Systemic lupus erythematosus, unspecified Hepatitis A,B,C Profile Today Z11.59 - Encounter for screening for other viral diseases T Spot TB Today Z11.7 - Encounter for testing for latent tuberculosis infection Anti Extractable Nuclear Ag Today M32.9 - Systemic lupus erythematosus, unspecified Complement C4 Today M32.9 - Systemic lupus erythematosus, unspecified Cyclic Citrullinated Peptide Today M25.50 - Pain in unspecified joint Rheumatoid Factor Today M25.50 - Pain in unspecified joint Comprehensive Met. Panel Today M32.9 - Systemic lupus erythematosus, unspecified Erythrocyte Sedimentation Rate Today M32.9 - Systemic lupus erythematosus, unspecified Immunofixation Pnl, Serum Today M32.9 - Systemic lupus erythematosus, unspecified Protein Electrophoresis, Serum Today M32.9 - Systemic lupus erythematosus, unspecified Anti DNA DS Antibody Today M32.9 - Systemic lupus erythematosus, unspecified Complement C3 Today M32.9 - Systemic lupus erythematosus, unspecified DNA Double Stranded-Crithidia Today M32.9 - Systemic lupus erythematosus, unspecified Protein Creatinine Ratio, Ur Today M32.9 - Systemic lupus erythematosus, unspecified UA w Microscopic Today M3.9 - Systemic lupus erythematosus, unspecified Sjogren's Antibodies Today M32.9 - Systemic lupus erythematosus, unspecified Thyroglobulin Antibodies Today E07.9 - Disorder of thyroid, unspecified Thyroid Peroxidase Antibodies Today E07.9 - Disorder of thyroid, unspecified TSH reflex Free T4 Today E07.9 - Disorder of thyroid, unspecified Coding Level of Care Code New Pt Level 4 (41121) Diagnoses Bilateral hand pain M79.641; M79.642
== END 2023-10-23 09:21 | disposition home or self-care (01) ==
PROVIDERS: PCP Internal Medicine; Visit Provider Student in an Organized Health Care Education/Training Program
DX: M79.641 Pain in right hand (principal); M79.642 Pain in left hand
CPT/HCPCS: 99204

== ENCOUNTER 2023-10-23 08:50 | Outpatient (REF) | payer OTHER, SELFPAY ==
[2023-10-23 09:58] LABS: MANUAL DIFF FLAG NO
[2023-10-23 10:40] LABS: Basophils Percent Auto 0.8 % (0-2); Eosinophils Absolute Auto 0.2 X10*3/uL (0.0-0.4); Eosinophils Percent Auto 3.2 % (0-4); Hematocrit 38.8 % (37.0-47.0); Hemoglobin 13.1 g/dl (12.0-16.0); Imm Gran Abs Auto 0.01 X10*3/uL (0.00-0.03); Imm Gran Pct Auto 0.2 % (0.0-0.4); Lymphocytes Absolute Auto 1.3 X10*3/uL (1.2-4.9); Lymphocytes Percent Auto 25.1 % (20-40); Mean Corpuscular HGB Conc 33.8 g/dl (31.0-35.0); Mean Platelet Volume 10.8 fL (9.4-12.3); Monocytes Absolute Auto 0.5 X10*3/uL (0.1-1.2); Monocytes Percent Auto 9.8 % (2-11); Neutrophils Absolute Auto 3.1 x10*3/uL (2.0-8.3); Neutrophils Percent Auto 60.9 % (45-73); Platelet Count 263 X10*3/uL (160-400); Red Blood Count 4.36 X10*6/uL (4.20-5.50); Red Cell Distribution Width 13.1 % (11.0-16.0)
[2023-10-23 10:46] LABS: Appearance Urine Clear; Color Urine Dark Yellow; Glucose Urine UA Negative (Negative); Leukocyte Esterase Urine Trace (Negative); Nitrite Urine Negative (Negative); PH 5.5 (5.0-9.0); Specific Gravity - Urine 1.025 (1.005-1.025); UMIC TRIGGER UA YES; Urine Blood Negative (Negative); Urine Ketones Negative (Negative); Urine Protein Negative (Neg-Trace)
[2023-10-23 10:50] LABS: Bacteria Urine None Seen (None Seen); Hyaline Casts Urine 0-2 /LPF (0-2); RBC Urine 0-2 /HPF (0-2); WBC Urine 0-5 /HPF (0-5)
[2023-10-23 11:12] LABS: Creatinine Urine 226.33 mg/dL; Protein/Creatinine Ratio, Ur 0.07 (<0.2); Total Protein Urine Random 16 mg/dL (<12)
[2023-10-23 11:13] LABS: Rheumatoid Factor < 13.0 IU/mL (<15.0)
[2023-10-23 11:22] LABS: Erythrocyte Sedimentation Rate 18 MM/HR (0-20)
[2023-10-23 11:30] LABS: Alanine Aminotransferase 15 U/L (0-31); Albumin Level 4.3 g/dL (3.5-5.0); Alkaline Phosphatase 95 U/L (39-117); Anion Gap 11 (12-20); Aspartate Amino Transferase 18 U/L (5-31); Bilirubin Total 0.3 mg/dL (0.0-1.0); Blood Urea Nitrogen 15 mg/dL (9-16); C Reactive Protein 0.55 mg/dL (< or = 0.50); Calcium 9.6 mg/dL (8.4-10.2); Carbon Dioxide 27 mmol/L (22-29); Chloride 106 mmol/L (96-108); Estimated Glomerular Filt Rate > 60; Glucose Random 93 mg/dL (60-115); Potassium 3.8 mmol/L (3.3-5.1); Sodium 140 mmol/L (135-145); Total Protein 8.3 g/dL (6.5-8.0)
[2023-10-23 11:32] LABS: TSH reflex Free T4 2.08 uIU/mL (0.32-4.0)
[2023-10-23 11:39] LABS: HBS Num1 0.62 mIU/mL (0-7.99); HBc Num1 0.16 S/CO (0.00-0.79); HBsAGNum1 0.38 S/CO (0.00-0.99); Hepatitis A Antibody IgM 0.22 Index (0-0.79); Hepatitis B Core Antibody Nonreactive (Nonreactive); Hepatitis B Surface Antigen Negative (Negative); ~HepC Num1 0.15 S/CO (0.00-0.79); ~Hepatitis A Antibody IgM Nonreactive (Nonreactive); ~Hepatitis B Surface Antibody NONREACTIVE (Nonreactive); ~Hepatitis C Antibody Nonreactive (Nonreactive)
[2023-10-24 13:34] LABS: Complement C3 145 mg/dL (83-193); Thyroglobulin Antibodies <1 IU/mL (< or = 1); Thyroid Peroxidase Antibodies <1 IU/mL (<9)
[2023-10-24 19:39] LABS: Anti DNA DS Antibody 1 IU/mL; Antibody to SS-A Antigen <1.0 NEG AI (<1.0 NEG); Antibody to SS-B Antigen <1.0 NEG AI (<1.0 NEG); SM/Ribonucleoprotein Ab <1.0 NEG AI (<1.0 NEG); Smith Protein <1.0 NEG AI (<1.0 NEG)
[2023-10-24 21:03] LABS: Prot Elec - Albumin 4.4 g/dL (3.8-4.8); Prot Elec - Alpha1 0.3 g/dL (0.2-0.3); Prot Elec - Alpha2 0.7 g/dL (0.5-0.9); Prot Elec - Beta 1 0.5 g/dL (0.4-0.6); Prot Elec - Beta 2 0.5 g/dL (0.2-0.5); Prot Elec - Gamma 1.8 g/dL (0.8-1.7); Prot Elec - Total Protein 8.2 g/dL (6.1-8.1)
[2023-10-25 14:53] LABS: Cyclic Citrullinated Peptide <16 UNITS
[2023-10-26 02:29] LABS: TS Negative Control Passed; TS Panel A 1; TS Panel B 4; TS Positive Control Passed; TSpotTB Negative (Negative)
[2023-10-26 14:58] LABS: IgA 381 mg/dL (70-320); IgG 1983 mg/dL (600-1540); IgM 54 mg/dL (50-300)
[2023-11-03 15:53] LABS: DNAds, Crithidia Antibody Negative (Negative)
== END 2023-10-23 08:51 | disposition home or self-care (01) ==
LOC: HO.LAB 08:50
PROVIDERS: PCP Internal Medicine; Visit Provider Student in an Organized Health Care Education/Training Program
DX: Z11.7 Encounter for testing for latent tuberculosis infection (principal); Z11.59 Encounter for screening for other viral diseases; M32.9 Systemic lupus erythematosus, unspecified; E07.9 Disorder of thyroid, unspecified; M79.641 Pain in right hand; M79.642 Pain in left hand
CPT/HCPCS: 36415; 80053; 81001; 82570; 82784; 84156; 84165; 84443; 85025; 85652; 86140; 86160; 86200; 86225; 86235; 86255; 86334; 86376; 86431; 86481; 86704; 86706; 86709; 86800; 86803; 87340; 99202

== ENCOUNTER 2023-12-14 22:27 | Emergency (ER) | payer OTHER, SELFPAY ==
--- NOTE | 2023-12-14 | ECG_ITS ---
Test Reason : CHEST PAIN Blood Pressure : / mmHG Vent. Rate : 059 BPM Atrial Rate : 059 BPM P-R Int : 142 ms QRS Dur : 076 ms QT Int : 404 ms P-R-T Axes : 035 054 041 degrees QTc Int : 399 ms Sinus bradycardia Otherwise normal ECG When compared with ECG of 20-MAY-2023 12:56, Heart rate has decreased Referred By: Generic ED Physician Electronically Signed By:MARCIE EKCERT
--- NOTE | ~2023-12-14 | XR_ITS ---
EXAMINATION: XR CHEST CLINICAL INFORMATION: Chest pain. COMPARISON: May 20, 2023 TECHNIQUE: Frontal view of the chest was obtained. FINDINGS: No significant abnormality is noted involving the heart, lungs, mediastinum, bony thorax or soft tissues. XR/XR chest 1V IMPRESSION: Unremarkable examination. Electronically signed by: Mando Kirk MD 12/14/2023 11:17 PM EDT RP
[2023-12-14 22:40] VITALS: BP 148/62; PULSE 59; RESP 20; TEMP 36.8; O2SAT 97; BMI 27.5
[2023-12-14 22:40] LABS: MANUAL DIFF FLAG NO
[2023-12-14 22:44] LABS: Basophils Absolute Auto 0.1 X10*3/uL (0.0-0.2); Basophils Percent Auto 0.9 % (0-2); Eosinophils Absolute Auto 0.2 X10*3/uL (0.0-0.4); Eosinophils Percent Auto 3.1 % (0-4); Hematocrit 35.1 % (37.0-47.0); Imm Gran Abs Auto 0.01 X10*3/uL (0.00-0.03); Imm Gran Pct Auto 0.1 % (0.0-0.4); Lymphocytes Absolute Auto 2.7 X10*3/uL (1.2-4.9); Lymphocytes Percent Auto 40.3 % (20-40); Mean Corpuscular HGB Conc 34.2 g/dl (31.0-35.0); Mean Corpuscular Hemoglobin 29.6 pg (27.0-33.0); Mean Corpuscular Volume 86.5 fL (80.0-98.0); Mean Platelet Volume 10.2 fL (9.4-12.3); Monocytes Absolute Auto 0.6 X10*3/uL (0.1-1.2); Monocytes Percent Auto 8.6 % (2-11); Neutrophils Absolute Auto 3.2 x10*3/uL (2.0-8.3); Platelet Count 254 X10*3/uL (160-400); Red Blood Count 4.06 X10*6/uL (4.20-5.50); Red Cell Distribution Width 13.3 % (11.0-16.0); White Blood Count 6.8 X10*3/uL (4.8-10.8)
[2023-12-14 23:05] LABS: Alanine Aminotransferase 14 U/L (0-31); Alkaline Phosphatase 95 U/L (39-117); Anion Gap 12 (12-20); Aspartate Amino Transferase 16 U/L (5-31); Bilirubin Total 0.2 mg/dL (0.0-1.0); Blood Urea Nitrogen 19 mg/dL (9-16); Calcium 8.9 mg/dL (8.4-10.2); Carbon Dioxide 25 mmol/L (22-29); Chloride 108 mmol/L (96-108); Creatinine Clr Calc Pharmacy 63.7; Estimated Glomerular Filt Rate > 60; Glucose Random 108 mg/dL (60-115); Potassium 3.6 mmol/L (3.3-5.1); Sodium 141 mmol/L (135-145); Total Protein 7.8 g/dL (6.5-8.0)
[2023-12-14 23:13] LABS: Troponin-I High Sensitivity < 2.7 ng/L (<3.5-17.0)
[2023-12-15 01:52] VITALS: BP 164/77; PULSE 58; RESP 17; TEMP 37.1; O2SAT 98
--- NOTE | 2023-12-15 01:52 | ED_ITS ---
HPI - Chest Pain General Chief Complaint: Chest Pain Stated Complaint: chest pain Time Seen by Provider: 12/15/23 01:43 Source: patient Mode of arrival: ambulatory Limitations: no limitations History of Present Illness ED Provider: taylor RAMOS narrative: Patient's history of anxiety fibromyalgia comes here for pain in the mid chest started 17:00 increases on taking deep breath and movement history of similar pain in the past no radiation of the pain no shortness a breath patient has had EKG and 2 sets of cardiac enzymes before my evaluation which were normal Related Data Home Medications ?Medication ?Instructions ?Recorded ?Confirmed buspirone 30 mg tablet 30 mg PO BID 03/04/20 03/04/20 famotidine 20 mg tablet 20 mg PO BID 03/04/20 03/04/20 loratadine 10 mg capsule 10 mg PO DAILY 03/04/20 03/04/20 pantoprazole 40 mg tablet,delayed 40 mg PO DAILY 03/04/20 03/04/20 release trazodone 50 mg tablet 50 mg PO BEDTIME PRN 03/04/20 03/04/20 risperidone 2 mg tablet (Risperdal) 2 mg PO DAILY 10/13/20 Previous Rx's ?Medication ?Instructions ?Recorded cyclobenzaprine 5 mg tablet 5 mg PO BEDTIME PRN muscle spasm 10/13/20 90 days #90 tabs hydrocodone-homatropine 5 mg-1.5 5 ml PO Q6H PRN cough #60 mL 10/21/20 mg/5 mL (5 mL) oral syrup (Hycodan) docusate sodium 100 mg capsule 200 mg (2 x 100 mg) PO DAILY #60 03/27/21 (Colace) caps hydrocortisone acetate 25 mg 25 mg NJ BID #12 ea 03/27/21 rectal suppository (Anusol-HC) polyethylene glycol 3350 17 17 g PO DAILY #510 grams 03/27/21 gram/dose oral powder (Miralax) cyclobenzaprine 10 mg tablet 10 mg PO Q8H #20 tabs 02/22/22 lorazepam 1 mg tablet (Ativan) 1 mg PO BID PRN anxiety #8 tabs 12/16/22 metoclopramide HCl 5 mg tablet 5 mg PO .B.i.d. PRN nausea and 03/15/23 vomiting #10 tabs sumatriptan succinate 50 mg tablet See Rx Instructions PO .COMPLEX 03/15/23 #10 tabs Allergies Allergy/AdvReac Type Severity Reaction Status Date / Time aspirin [ASA] Allergy Intermediate NAUSEA & Verified 12/14/23 22:46 VOMITING, stomach upset, nausea and vomiting Review of Systems 2 Review of Systems: Yes all other systems are reviewed and are negative REPLACED BY [facility] Past Medical History Medical History Carpal tunnel syndrome Asthma Vocal cord anomaly Bloating Acid reflux Surgical History Hx of tubal ligation Social History Social History Household Members Other:: alone Alcohol intake: never Patient Tobacco Use Status: Former Tobacco user Tobacco use type: Cigarette Years Smoked: quit 12 years ago Smoked in Last 30 Days: No Use of substances other than those prescribed or required for medical reasons: No Advance Directives: No Advance Directives Information Provided: No Patient : No Current occupational status: unemployed Physical Exam 2 Vital Signs: Vital Signs: Last Vital Signs Temp 98.5 F 12/15/23 03:15 Pulse 63 12/15/23 03:15 Resp 17 12/15/23 03:15 BP 153/62 H 12/15/23 03:15 Pulse Ox 95 12/15/23 03:15 O2 Del Method Room Air 12/15/23 03:15 BMI result Body Mass Index 27.5 Appearance: Alert. Oriented X3. No acute distress. Eyes: No pallor or icterus ENT: Pharynx normal. Oral Mucosa moist Neck: Normal inspection. Neck supple. CVS: Normal heart rate and rhythm. Pulses normal. Respiratory: No respiratory distress. Equal air entry bilateral, no wheezing/rales/rhonchi reproducible mid chest pain Abdomen: Soft and nontender. Bowel sounds are present, no mass palpable, no CVA tenderness Skin: Skin warm and dry. Normal skin color. Normal skin turgor. Extremities: No lower extremity edema. No calf tenderness Neuro: Oriented X 3. No motor deficit. No sensory deficit.No cerebellar signs , cranial nerves II-XII intact Medications Administered Discontinued Medications Generic Name Dose Route Start Last Admin Trade Name Freq PRN Reason Stop Dose Admin Tramadol HCl 50 mg 12/15/23 02:56 12/15/23 03:12 Tramadol Hcl 50 Mg Tablet PO 12/15/23 02:57 50 mg ONCE ONE Administration Medical Decision Making Medical Decision Making [facility] Narrative: Patient's fibromyalgia with atypical chest pain with previous presentation to the ER with similar pain 2 sets of cardiac enzymes negative EKG without any ischemic changes will discharge patient home advised to follow with PCP and continue Tylenol/other medication Differential Diagnosis Differential Diagnoses: The differential diagnosis associated with the presentation includes ACS/musculoskeletal/fibromyalgia Lab Data [facility] Lab Attestation statement: I reviewed the patient's lab results. 12/14/23 22:35 12/14/23 22:35 Labs: Lab Results 12/14/23 12/15/23 Range/Units 22:35 01:40 WBC 6.8 (4.8-10.8) X10*3/uL RBC 4.06 L (4.20-5.50) X10*6/uL Hgb 12.0 (12.0-16.0) g/dl Hct 35.1 L (37.0-47.0) % MCV 86.5 (80.0-98.0) fL MCH 29.6 (27.0-33.0) pg MCHC 34.2 (31.0-35.0) g/dl RDW 13.3 (11.0-16.0) % Plt Count 254 (160-400) X10*3/uL MPV 10.2 (9.4-12.3) fL Immature Gran % (Auto) 0.1 (0.0-0.4) % Neut % (Auto) 47.0 (45-73) % Lymph % (Auto) 40.3 H (20-40) % Harmon % (Auto) 8.6 (2-11) % Eos % (Auto) 3.1 (0-4) % Baso % (Auto) 0.9 (0-2) % Lymph # (Auto) 2.7 (1.2-4.9) X10*3/uL Harmon # (Auto) 0.6 (0.1-1.2) X10*3/uL Eos # (Auto) 0.2 (0.0-0.4) X10*3/uL Baso # (Auto) 0.1 (0.0-0.2) X10*3/uL Abs Immat Gran (auto) 0.01 (0.00-0.03) X10*3/uL Absolute Neuts (auto) 3.2 (2.0-8.3) x10*3/uL Absolute Nucleated RBC 0.000 (0.0-0.012) X10*3/uL Nucleated RBC % (auto) 0.0 (0.0-0.2) /100WBC Sodium 141 (135-145) mmol/L Potassium 3.6 (3.3-5.1) mmol/L Chloride 108 (96-108) mmol/L Carbon Dioxide 25 (22-29) mmol/L Anion Gap 12 (12-20) BUN 19 H (9-16) mg/dL Creatinine 0.85 (0.5-1.4) mg/dL Estim Creat Clear Calc 63.7 Estimated GFR > 60 Random Glucose 108 (60-115) mg/dL Calcium 8.9 D (8.4-10.2) mg/dL Total Bilirubin 0.2 (0.0-1.0) mg/dL AST 16 (5-31) U/L ALT 14 (0-31) U/L Alkaline Phosphatase 95 (39-117) U/L Troponin I High Sens < 2.7 < 2.7 (<3.5-17.0) ng/L Total Protein 7.8 (6.5-8.0) g/dL Albumin 4.0 (3.5-5.0) g/dL Independent Interpretation I performed an independent interpretation of an: EKG and Plain X-Ray Interpretation: Sinus bradycardia with heart rate 59 beats per minute normal interval normal axis no acute STT wave changes no acute ischemia Radiology Impression Discussion of test interpretation with radiology: I have reviewed the radiologist's reading. Radiologist Impression: Negative chest x-ray Discharge Plan Discharge Clinical Impression: Atypical chest pain Patient Disposition: Home, Self-Care Instructions: Chest Wall Pain (ED) Additional Instructions: You have musculoskeletal chest pain Continue take your medications and follow with your PCP Prescriptions: No Action hydrocodone-homatropine [Hycodan] 5-1.5 mg/5 mL (5 mL) syrup 5 ml PO Q6H PRN (Reason: cough) Qty: 60 0RF hydrocortisone acetate [Anusol-HC] 25 mg suppository 25 mg NJ BID Qty: 12 0RF docusate sodium [Colace] 100 mg capsule 200 mg PO DAILY Qty: 60 0RF polyethylene glycol 3350 [Miralax] 17 gram/dose powder 17 g PO DAILY Qty: 510 0RF cyclobenzaprine 10 mg tablet 10 mg PO Q8H Qty: 20 0RF sumatriptan succinate 50 mg tablet See Rx Instructions .ROUTE .COMPLEX Qty: 10 0RF Rx Instructions: take 1 tab at onset of headache; if no relief may repeat 1 tab after at least 2 hrs; max = 4 tabs/24 hr metoclopramide HCl 5 mg tablet 5 mg PO .B.i.d. PRN (Reason: nausea and vomiting) Qty: 10 0RF lorazepam [Ativan] 1 mg tablet 1 mg PO BID PRN (Reason: anxiety) Qty: 8 0RF trazodone 50 mg tablet 50 mg PO BEDTIME PRN famotidine 20 mg tablet 20 mg PO BID pantoprazole 40 mg tablet,delayed release (DR/EC) 40 mg PO DAILY buspirone 30 mg tablet 30 mg PO BID loratadine 10 mg capsule 10 mg PO DAILY risperidone [Risperdal] 2 mg tablet 2 mg PO DAILY cyclobenzaprine 5 mg tablet 5 mg PO BEDTIME PRN (Reason: muscle spasm) 90 Days Qty: 90 3RF Interventions: ED Discharge Assessment Last Done: 12/15/23 03:15 Discharge Date/Time: 12/15/23 03:15 Print Language: Scottish
[2023-12-15 02:06] LABS: Troponin-I High Sensitivity < 2.7 ng/L (<3.5-17.0)
--- NOTE | 2023-12-15 02:47 | PC.NURSE ---
pt from home, a&ox4, respirations even and unlabored. pt reporting onset of midsternal chest pain starting this morning, pt reports radiating into left chest, pt denies nausea, vomiting and diarrhea. pt denies any history of this in the past.
[2023-12-15] MEDS: traMADoL HCL 50 MG TABLET PO (03:12)
[2023-12-15 03:13] VITALS: BP 153/62; PULSE 63; RESP 17; TEMP 36.9; O2SAT 95
[2023-12-15 03:15] VITALS: BP 153/62; PULSE 63; RESP 17; TEMP 36.9; O2SAT 95
== END 2023-12-15 03:15 | disposition home or self-care (01) ==
PROVIDERS: Emergency Provider Internal Medicine; PCP Internal Medicine
DX: R07.89 Other chest pain (principal); Z79.899 Other long term (current) drug therapy; Z87.891 Personal history of nicotine dependence
CPT/HCPCS: 36415; 71045; 80053; 84484; 85025; 93005; 99283; 99285

== ENCOUNTER 2024-01-30 14:02 | Outpatient (AMB) | payer OTHER, SELFPAY ==
--- NOTE | 2024-01-30 14:11 | A.OFFVIS_ITS ---
Vital Signs 01/30/24 14:16 Height 5 ft 3 in Weight 160 lb 0.889 oz BMI 28.3 BP 132/70 Blood Pressure Location Rt brachial Position Sitting Pulse 66 Pulse Source Pulse Oximeter Pulse Oximetry (%) 97 Oxygen Delivery Method Room Air Intake Visit Reasons: RA/OA/trigger/lm Intake Note: Patient presents for RA/OA/trigger. Trace Evidence Technician Required: Yes Trace Evidence Technician Language: Invoicing Machine Operator Services: Trace Evidence Technician Offered & Declined Trace Evidence Technician Name: Martha Kumar Information Interpreted: non-clinical & clinical Boot Liner Maker: Boot Liner Maker Present (Monet Kumar) Accompanied by: Daughter Allergies aspirin [ASA] Allergy (Intermediate, Verified 01/30/24 14:15) NAUSEA & VOMITING, stomach upset, nausea and vomiting Medication List - Last Reconciled 01/30/24 by Roque Linares MD buspirone 30 mg PO BID cyclobenzaprine 10 mg PO Q8H cyclobenzaprine 5 mg PO BEDTIME PRN 90 days docusate sodium (Colace) 200 mg (2 x 100 mg) PO DAILY famotidine 20 mg PO BID hydrocodone-homatropine 5-1.5 mg/5 mL (5 mL) (Hycodan) 5 mL PO Q6H PRN hydrocortisone acetate (Anusol-HC) 25 mg [place] BID loratadine 10 mg PO DAILY lorazepam (Ativan) 1 mg PO BID PRN metoclopramide HCl 5 mg PO .B.i.d. PRN pantoprazole 40 mg PO DAILY polyethylene glycol 3350 (Miralax) 17 grams PO DAILY risperidone (Risperdal) 2 mg PO DAILY sumatriptan succinate take 1 tab at onset of headache; if no relief may repeat 1 tab after at least 2 hrs; max = 4 tabs/24 hr trazodone 50 mg PO BEDTIME PRN HPI Comments Details: Patient returns for follow-up after completion of her workup. She continues to have stiffness, pain and locking of her fingers especially in the morning. Initial history: This is a 62-year-old female with history of fibromyalgia who presents for follow-up. She was was last seen by Dr. Mckinnon 09/2020. About 5 months ago patient has been having bilateral hand pain. She has morning stiffness of her hands lasting approximately 1 hour. It is mostly in her right middle finger. She has tried taking Tylenol and ibuprofen up to 800 mg a day without much relief. She did not notice much swelling. She also has pain in the sole of her toes bilaterally also worse in the morning. She was evaluated by her PCP and prescribed prednisone would provided at least 90% relief. She denies any fevers, weight loss, skin rashes, history of DVT/PE. History of recurrent miscarriages. She is unaware of any family history of an autoimmune rheumatic disease [facility] Medical History Carpal tunnel syndrome Asthma Vocal cord anomaly Bloating Acid reflux Surgical History Hx of tubal ligation Social History Household Members Other:: alone Alcohol intake: never Patient Tobacco Use Status: Former Tobacco user Tobacco use type: Cigarette Years Smoked: quit 12 years ago Current occupational status: unemployed Female Reproductive History Menstrual Total pregnancies: 10 Full term: 8 Number of Living Children: 7 Ab induced: 2 Review of Systems [facility] Reports arthralgias and Reports stiffness Physical Exam Vital Signs: Last Vital Signs Pulse 66 01/30/24 14:16 BP 132/70 01/30/24 14:16 Pulse Ox 97 01/30/24 14:16 Oxygen Delivery Method Room Air 01/30/24 14:16 BMI result Body Mass Index 28.3 Const General: cooperative, healthy appearing and comfortable Nutritional Appearance: overweight Orientation/consciousness: patient oriented x3 Limitations: no limitations HEENT Head: Yes normocephalic and Yes atraumatic Mouth: moist mucous membranes Resp Effort & Inspection: normal respiratory effort and able to speak in complete sentences Skin General skin exam: no rashes or lesions noted Neuro General: patient oriented x3 Extrem Other: Osteoarthritic changes of both hands no noticeable swelling Right 3rd and 4th flexor tendon tenderness Left 3rd and 4th flexor tendon tenderness There is minimal triggering of 2nd through 5th her tendons bilaterally Negative MCP squeeze test bilaterally Normal nailfold capillaroscopy No elbow or shoulder pain with full range of motion Bilateral knee crepitus No ankle swelling or tenderness Diffusely tender MTPs on the sole aspect both feet Few fibromyalgia tender points Assessment & Plan Assessment & Plan (1) Bilateral hand pain: Code(s): M79.641 - Pain in right hand; M79.642 - Pain in left hand Category: Medical Plan: This is a 63-year-old female with history of fibromyalgia who presents for evaluation of bilateral hand pain. On exam there is no swollen joints. She has multiple trigger fingers. Comprehensive serology and inflammatory markers are normal. Bilateral hand and wrist ultrasound does not show signs suggestive of inflammatory arthritis. Clinical picture at this time is consistent with multiple trigger fingers. Advised patient to wear finger splints at night. If no improvement call the clinic and we can bring her in for an injection Plan I spent 15 minutes reviewing patient's chart, evaluating patient, counseling patient and documenting in the chart Coding Level of Care Code Est Pt Level 3 (75789) Diagnoses Bilateral hand pain M79.641; M79.642
[2024-01-30 14:16] VITALS: BP 132/70; PULSE 66; O2SAT 97; BMI 28.3
== END 2024-01-30 14:30 | disposition home or self-care (01) ==
LOC: HO.RHE 14:02
PROVIDERS: PCP Internal Medicine; Visit Provider Student in an Organized Health Care Education/Training Program
DX: M79.641 Pain in right hand (principal); M79.642 Pain in left hand
CPT/HCPCS: 99213

== ENCOUNTER → 2024-01-30 14:02 | Outpatient (BNVA) | payer OTHER, SELFPAY | PROVIDERS: PCP Internal Medicine; Visit Provider Student in an Organized Health Care Education/Training Program | DX: M79.641 Pain in right hand (principal); M79.642 Pain in left hand; M79.7 Fibromyalgia | CPT/HCPCS: 99212 ==

== ENCOUNTER 2024-02-28 11:12 | Outpatient (AMB) | payer OTHER, SELFPAY ==
--- NOTE | 2024-02-28 11:13 | A.OFFVIS_ITS ---
Vital Signs 02/28/24 11:14 Height 5 ft 3 in Weight 155 lb 10.342 oz BMI 27.6 BP 138/72 Blood Pressure Location Rt brachial Position Sitting Pulse 73 Pulse Source Pulse Oximeter Intake Visit Reasons: Hand pain/cm Intake Note: Patient last seen by Doctor Roque Linares on 01/30/24. Presents today for hand pain follow up. 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 Required: No Accompanied by: Spouse Allergies aspirin [ASA] Allergy (Intermediate, Verified 02/28/24 11:17) NAUSEA & VOMITING, stomach upset, nausea and vomiting Medication List - Last Reconciled 02/28/24 by Roque Linares MD buspirone 30 mg PO BID cyclobenzaprine 10 mg PO Q8H cyclobenzaprine 5 mg PO BEDTIME PRN 90 days docusate sodium (Colace) 200 mg (2 x 100 mg) PO DAILY famotidine 20 mg PO BID gabapentin mg PO hydrocodone-homatropine 5-1.5 mg/5 mL (5 mL) (Hycodan) 5 mL PO Q6H PRN hydrocortisone acetate (Anusol-HC) 25 mg [place] BID loratadine 10 mg PO DAILY lorazepam (Ativan) 1 mg PO BID PRN metoclopramide HCl 5 mg PO .B.i.d. PRN pantoprazole 40 mg PO DAILY polyethylene glycol 3350 (Miralax) 17 grams PO DAILY risperidone (Risperdal) 2 mg PO DAILY sumatriptan succinate take 1 tab at onset of headache; if no relief may repeat 1 tab after at least 2 hrs; max = 4 tabs/24 hr trazodone 50 mg PO BEDTIME PRN HPI Comments Details: 63-year-old female with hand osteoarthritis and trigger fingers returns for follow-up. She continues to feel about the same. Continues to have some pain in her palms. Triggering of her fingers especially the right middle finger Initial history: This is a 62-year-old female with history of fibromyalgia who presents for follow-up. She was was last seen by Dr. Mckinnon 09/2020. About 5 months ago patient has been having bilateral hand pain. She has morning stiffness of her hands lasting approximately 1 hour. It is mostly in her right middle finger. She has tried taking Tylenol and ibuprofen up to 800 mg a day without much relief. She did not notice much swelling. She also has pain in the sole of her toes bilaterally also worse in the morning. She was evaluated by her PCP and prescribed prednisone would provided at least 90% relief. She denies any fevers, weight loss, skin rashes, history of DVT/PE. History of recurrent miscarriages. She is unaware of any family history of an autoimmune rheumatic disease [facility] Medical History Carpal tunnel syndrome Asthma Vocal cord anomaly Bloating Acid reflux Surgical History Hx of tubal ligation Social History Household Members Other:: alone Alcohol intake: never Patient Tobacco Use Status: Former Tobacco user Tobacco use type: Cigarette Years Smoked: quit 12 years ago Current occupational status: unemployed Female Reproductive History Menstrual Total pregnancies: 10 Full term: 8 Number of Living Children: 7 Ab induced: 2 Review of Systems Musc Reports arthralgias and Reports stiffness Physical Exam Vital Signs: Last Vital Signs Pulse 73 02/28/24 11:14 BP 138/72 02/28/24 11:14 BMI result Body Mass Index 27.6 Const General: cooperative, healthy appearing and comfortable Nutritional Appearance: overweight Orientation/consciousness: patient oriented x3 Limitations: no limitations HEENT Head: Yes normocephalic and Yes atraumatic Resp Effort & Inspection: normal respiratory effort and able to speak in complete sentences Neuro General: patient oriented x3 Extrem Other: Osteoarthritic changes of both hands no noticeable swelling Right 3rd and 4th flexor tendon tenderness Left 3rd and 4th flexor tendon tenderness There is minimal triggering of 2nd through 5th her tendons bilaterally , most prominent is the 3rd finger Negative MCP squeeze test bilaterally Normal nailfold capillaroscopy Office Procedures AMB Tendon Injection Tendon Injection Details: With patient's consent, The right palm was prepped with ChloraPrep and alcohol. Under a topical ethyl chloride spray the [3rd] flexor tendon sheath was injected with 20 mg of triamcinolone and 0.2 cc of 1% lidocaine. Then, The left palm was prepped with ChloraPrep and alcohol. Under a topical ethyl chloride spray the [3rd] flexor tendon sheath was injected with 20 mg of triamcinolone and 0.2 cc of 1% lidocaine. The patient tolerated the procedure without any acute adverse effects. 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 1 mL [id number] 09/24/25 [address]-8 [employer] Assessment & Plan Assessment & Plan (1) Trigger finger: Code(s): M65.30 - Trigger finger, unspecified finger Category: Medical Plan: This is a 63-year-old female with bilateral hand osteoarthritis and trigger fingers who presents for follow-up requesting an injection. With patient's consent the right and left flexor tendons were injected with Kenalog today. Advised patient to call the clinic if there is no improvement 2 weeks and I will refer her to a hand surgeon Plan I spent 15 minutes reviewing patient's chart, evaluating patient, counseling patient and documenting in the chart Orders: Orders AMB Tendon Injection Today M65.30 - Trigger finger, unspecified finger Medications: New Kenalog (triamcinolone acetonide) 40 mg Tendon Sheath Inj. ONCE 1 mL 0RF NS M65.30 - Trigger finger, unspecified finger Coding Level of Care Code Est Pt Level 3 (96406) Diagnoses Trigger finger M65.30 CPT Codes Tendon Injection - Tendon Injection 1: [id number] Tendon Sheath Injection ([id number])
[2024-02-28 11:14] VITALS: BP 138/72; PULSE 73; BMI 27.6
== END 2024-02-28 11:44 | disposition home or self-care (01) ==
PROVIDERS: PCP Internal Medicine; Visit Provider Student in an Organized Health Care Education/Training Program
DX: M65.331 Trigger finger, right middle finger (principal); M65.341 Trigger finger, right ring finger; M65.332 Trigger finger, left middle finger; M65.342 Trigger finger, left ring finger
CPT/HCPCS: 20550; 99213

== ENCOUNTER → 2024-02-28 11:12 | Outpatient (BNVA) | payer OTHER, SELFPAY | PROVIDERS: PCP Internal Medicine; Visit Provider Student in an Organized Health Care Education/Training Program | DX: M65.331 Trigger finger, right middle finger (principal); M65.332 Trigger finger, left middle finger; M79.642 Pain in left hand; M79.641 Pain in right hand; M79.7 Fibromyalgia | CPT/HCPCS: 20550; 99212; J3300 ==

== ENCOUNTER 2024-03-10 14:35 | Emergency (ER) | payer OTHER, SELFPAY ==
--- NOTE | ~2024-03-10 | CT_ITS ---
EXAMINATION: CT ABDOMEN AND PELVIS WITHOUT CONTRAST CLINICAL INFORMATION: Abdominal pain. Flank pain. UTI. Evaluate for pyelonephritis. COMPARISON: Most recent CT abdomen/pelvis dated 04/04/2021. TECHNIQUE: Multidetector volumetric imaging was performed from the superior aspect of the liver through the pubic symphysis. Sagittal and coronal reformatted images were obtained on the technologist's workstation. This CT examination was performed using dose optimization techniques as appropriate, variously including the following: *Automated exposure control. *Adjustment of mA and/or kV according to patient size (this includes techniques or standardized protocols for targeted exams where dose is matched to indication/reason for exam; i.e. extremities or head). *Use of iterative reconstruction technique. DLP: 495 mGy-cm FINDINGS: LUNG BASES: The visualized lung bases are unremarkable. LIVER, GALLBLADDER, AND BILIARY TREE: The liver is normal in size, shape, and attenuation. No focal hepatic lesion or biliary ductal dilatation is present. The gallbladder is unremarkable with no evidence of radiopaque gallstones, gallbladder wall thickening, or obvious pericholecystic inflammatory changes. PANCREAS: Unremarkable. SPLEEN: Unremarkable. ADRENAL GLANDS: Unremarkable. KIDNEYS AND URETERS: The kidneys are normal in size, shape, and attenuation. No hydronephrosis, hydroureter, or calculi seen. No perinephric stranding. BLADDER: Unremarkable. GASTROINTESTINAL TRACT: Mild stool throughout the colon. No small or large bowel obstruction. No bowel wall thickening or inflammatory change. Unremarkable appendix. PERITONEAL CAVITY: No intra-abdominal free air or free fluid. No intra-abdominal mass or organized fluid collection/abscess formation. ABDOMINAL WALL: No significant hernia is appreciated. LYMPH NODES: No lymphadenopathy. VASCULAR: No abdominal aortic dilatation. Atherosclerotic calcifications. PELVIC VISCERA: Status post hysterectomy. OSSEOUS STRUCTURES: Unremarkable. CT/CT abdomen pelvis wo IV con IMPRESSION: 1. No renal or ureteral stone. No hydronephrosis or hydroureter. Unremarkable urinary bladder. 2. Mild stool throughout the colon. No small or large bowel obstruction. No bowel wall thickening or inflammatory change. Unremarkable appendix. 3. No intra-abdominal mass, lymphadenopathy, or ascites. Fleischner guidelines were followed. Electronically signed by: Parth Nina MD 03/10/2024 06:47 PM [facility]
[2024-03-10 14:54] VITALS: BP 155/79; PULSE 63; RESP 16; TEMP 36.6; O2SAT 99; BMI 26.4
--- NOTE | 2024-03-10 14:54 | ED_ITS ---
HPI - General Adult General Chief complaint: Urogenital-Female Stated complaint: Pelvic pain, has UTI meds not helping Time Seen by Provider: 03/10/24 14:54 Source: patient, family and insights manager Mode of arrival: ambulatory Limitations: language barrier History of Present Illness ED Provider: Ramandeep Damian APRN HPI narrative: 63 yo female with history of fibromyalgia here with complaints of 2 weeks of lower pelvic pain, dysuria, urinary frequency. Went to on 03/04 and given rx for macrobid. She took it for 2 days and felt there was no change in her symptoms so she stopped taking it. She returned to and was prescribed pyridium which she feels helped her symptoms but she ran out of these. Now symptoms have returned and she is also having mid back pain. No vomiting, diarrhea, fevers, chills, vaginal discharge. She has had a partial hyst. She has no new sexual partners. She would like to be tested for STDs. Related Data Home Medications ?Medication ?Instructions ?Recorded ?Confirmed buspirone 30 mg tablet 30 mg PO BID 03/04/20 03/04/20 famotidine 20 mg tablet 20 mg PO BID 03/04/20 03/04/20 loratadine 10 mg capsule 10 mg PO DAILY 03/04/20 03/04/20 pantoprazole 40 mg tablet,delayed 40 mg PO DAILY 03/04/20 03/04/20 release trazodone 50 mg tablet 50 mg PO BEDTIME PRN 03/04/20 03/04/20 risperidone 2 mg tablet (Risperdal) 2 mg PO DAILY 10/13/20 gabapentin 100 mg capsule mg PO 02/28/24 Previous Rx's ?Medication ?Instructions ?Recorded cyclobenzaprine 5 mg tablet 5 mg PO BEDTIME PRN muscle spasm 10/13/20 90 days #90 tabs hydrocodone-homatropine 5 mg-1.5 5 ml PO Q6H PRN cough #60 mL 10/21/20 mg/5 mL (5 mL) oral syrup (Hycodan) docusate sodium 100 mg capsule 200 mg (2 x 100 mg) PO DAILY #60 03/27/21 (Colace) caps hydrocortisone acetate 25 mg 25 mg [place] BID #12 ea 03/27/21 rectal suppository (Anusol-HC) polyethylene glycol 3350 17 17 g PO DAILY #510 grams 03/27/21 gram/dose oral powder (Miralax) cyclobenzaprine 10 mg tablet 10 mg PO Q8H #20 tabs 02/22/22 lorazepam 1 mg tablet (Ativan) 1 mg PO BID PRN anxiety #8 tabs 12/16/22 metoclopramide HCl 5 mg tablet 5 mg PO .B.i.d. PRN nausea and 03/15/23 vomiting #10 tabs sumatriptan succinate 50 mg tablet See Rx Instructions PO .COMPLEX 03/15/23 #10 tabs cefpodoxime 200 mg tablet 200 mg PO BID #14 tabs 03/10/24 phenazopyridine 200 mg tablet 200 mg PO TID PRN pain 6 doses #6 03/10/24 (Pyridium) tabs Allergies Allergy/AdvReac Type Severity Reaction Status Date / Time aspirin [ASA] Allergy Intermediate NAUSEA & Verified 03/10/24 14:58 VOMITING, stomach upset, nausea and vomiting Review of Systems 2 Review of Systems: Yes all other systems are reviewed and are negative Constitutional: Constitutional: Reports no additional constitutional complaints, Denies body ache(s), Denies chills, Denies fever(s), Denies headache(s) and Denies weakness Eyes: Eyes: Reports no additional eye complaints and Denies change in vision ENT: Reports system reviewed and no additional complaints, except as documented, Denies dizziness, Denies headache(s), Denies nasal congestion, Denies nasal discharge and Denies neck pain Cardiovascular: Cardiovascular: Reports no additional cardiovascular complaints, Denies chest pain, Denies leg edema and Denies dyspnea Respiratory: Respiratory: Reports no additional respiratory complaints, Denies cough and Denies dyspnea Gastrointestinal: Gastrointestinal: Reports no additional gastrointestinal complaints, Reports abdominal pain, Denies diarrhea, Denies nausea and Denies vomiting Genitourinary: Genitourinary: Reports no additional female genitourinary complaints, Denies abnormal vaginal bleeding, Denies hematuria, Reports dysuria, Reports pelvic pain, Denies flank pain, Denies urinary incontinence, Denies urinary hesitancy, Reports urinary urgency, Denies vaginal discharge, Denies vaginal dryness, Denies vaginal odor and Denies vaginal pruritus Musculoskeletal: Musculoskeletal: Reports no additional musculoskeletal complaints, Denies back pain, Denies arthralgias, Denies joint swelling, Denies neck pain, Denies numbness and Denies tingling Integumentary/Breasts: Skin/Breast: Reports system reviewed and no additional complaints, except as docu and Denies rash Neurologic: Reports system reviewed and no additional complaints, except as documented, Denies Abnormal speech present, Denies dizziness, Denies headache(s), Denies numbness, Denies tingling and Denies weakness PMF Past Medical History Attestation statement: The following information was validated with the patient. Source: old records reviewed and nursing notes reviewed Medical History Carpal tunnel syndrome Asthma Vocal cord anomaly Bloating Acid reflux Surgical History (Reviewed 03/10/24 @ 17: by Ramandeep Damian NP) Hx of tubal ligation Social History Social History (Reviewed 03/10/24 @ 17: by Ramandeep Damian NP) Household Members Other:: alone Alcohol intake: never Patient Tobacco Use Status: Former Tobacco user Tobacco use type: Cigarette Years Smoked: quit 12 years ago Advance Directives: No Advance Directives Information Provided: No Current occupational status: unemployed Physical Exam ED Vital Signs: Vital Signs - 24 hr 03/10/24 14:54 03/10/24 16:59 Temperature 97.8 F 99.0 F Pulse Rate 63 61 Respiratory Rate 16 17 Blood Pressure 155/79 H 138/64 Pulse Oximetry 99 97 Oxygen Delivery Method Room Air Room Air BMI result Body Mass Index 26.4 Const General: cooperative, healthy appearing, comfortable and no acute distress Orientation/consciousness: patient oriented x3 Limitations: no limitations [facility] Head: Yes normal to inspection Ears: hearing grossly normal bilaterally General nose exam: Normal external nose present Face and sinus: Yes normal facial exam Mouth: Normal oral and palatal mucosa present Throat: Yes posterior oropharynx normal Eyes General: appearance normal, both eyes and all related structures Pupils: Equal, round and reactive pupils present Neck Neck: Yes normal visual inspection Chest Chest palpation & inspection: normal inspection of the chest Resp Effort & Inspection: normal respiratory effort Auscultation: clear to auscultation bilaterally Cardio Rate: regular rate Rhythm: regular rhythm Peripheral pulses: Peripheral pulses 2+ throughout GI Inspection: Yes normal to inspection Palpation (GI): Soft to palpation, Tenderness to palpation present (GI) (mild ) in the LLQ and in the RLQ; with no rebound tenderness and no guarding Auscultation: normal bowel sounds 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 General: Yes no CVA tenderness External Female Exam: normal external appearance Speculum Exam - Vagina: normal appearance of the vagina Speculum Exam - Cervix: normal appearance of the cervix Bimanual exam- vagina & uterus: normal bimanual exam Bimanual Exam- Adnexa, other: normal adnexae Back/Spine/Pelvis Back: no CVA tenderness Thoracic/Lumbar Spine: thoracic and lumbar spine normal to inspection Skin General skin exam: no rashes or lesions noted Neuro General: patient oriented x3, no focal motor deficits and normal sensation to monofilament Cranial nerves: Yes Equal, round and reactive pupils present Cognition (Neuro): normal cognition Speech: No Abnormal speech present Gait exam (Neuro): Normal gait present Motor exam (neuro): 5/5 motor strength present throughout Extrem General: Yes normal to inspection, Yes no pedal edema and Yes no calf tenderness Course Course Course Narrative: Reports that she is having pelvic pain and discomfort. also endorsing urinary frequency. She was seen at an urgent care on 03/04/2024 at which time she was prescribed Macrobid; this was 6 days ago. However she states that she only began taking it 2 days ago. She presented to the urgent care again on 03/06/2024 she was still experiencing symptoms and she was prescribed Pyridium which she finished yesterday. She is now experiencing pain in her back and persistent urinary symptoms. she is also reporting vaginal pressure and pain. Denies any vaginal bleeding. Plan: Serum labs, repeat urinalysis, +/- vaginitis panel Reevaluation(s) Reevaluation #1: CT scan shows no acute finding. Patient does have a UTI. I will put her on antibiotic and prescribed Pyridium as needed. We did send testing for BV, CT NG. Patient would like to for wait for her swabs to return before being treated. Reviewed worrisome signs and symptoms of when to return to the emergency room. Comfortable plan for discharge home Medical Decision Making Medical Decision Making MDM Narrative: 63 yo female with history of fibromyalgia here with complaints of 2 weeks of lower pelvic pain, dysuria, urinary frequency. Went to on 03/04 and given rx for macrobid. She took it for 2 days and felt there was no change in her symptoms so she stopped taking it. She returned to and was prescribed pyridium which she feels helped her symptoms but she ran out of these. Now symptoms have returned and she is also having mid back pain. No vomiting, diarrhea, fevers, chills, vaginal discharge. She has had a partial hyst. She has no new sexual partners. She would like to be tested for STDs. Mild TTP to lower abdomen with no rebound or guarding. No CVAT. exam normal. Will obtain labs, UA, send BV/STI panel, CT A/P Differential Diagnosis Differential Diagnoses: The differential diagnosis associated with the presentation includes uti, pyelo, renal colic, vaginitis, Sti Admission/Observation Consideration of admission/observation: Escalation of care including admission/observation considered Lab Data MDM Lab Attestation statement: I reviewed the patient's lab results. 03/10/24 15:14 03/10/24 15:14 Labs: Lab Results 03/10/24 Range/Units 15:14 WBC 8.0 (4.8-10.8) X10*3/uL RBC 4.47 (4.20-5.50) X10*6/uL Hgb 13.6 (12.0-16.0) g/dl Hct 40.5 (37.0-47.0) % MCV 90.6 (80.0-98.0) fL MCH 30.4 (27.0-33.0) pg MCHC 33.6 (31.0-35.0) g/dl RDW 14.2 (11.0-16.0) % Plt Count 292 (160-400) X10*3/uL MPV 10.0 (9.4-12.3) fL Immature Gran % (Auto) 0.4 (0.0-0.4) % Neut % (Auto) 69.0 (45-73) % Lymph % (Auto) 20.3 (20-40) % Andrews % (Auto) 7.9 (2-11) % Eos % (Auto) 1.6 (0-4) % Baso % (Auto) 0.8 (0-2) % Lymph # (Auto) 1.6 (1.2-4.9) X10*3/uL Andrews # (Auto) 0.6 (0.1-1.2) X10*3/uL Eos # (Auto) 0.1 (0.0-0.4) X10*3/uL Baso # (Auto) 0.1 (0.0-0.2) X10*3/uL Abs Immat Gran (auto) 0.03 (0.00-0.03) X10*3/uL Absolute Neuts (auto) 5.5 (2.0-8.3) x10*3/uL Absolute Nucleated RBC 0.000 (0.0-0.012) X10*3/uL Nucleated RBC % (auto) 0.0 (0.0-0.2) /100WBC Sodium 139 (135-145) mmol/L Potassium 4.1 (3.3-5.1) mmol/L Chloride 105 (96-108) mmol/L Carbon Dioxide 29 (22-29) mmol/L Anion Gap 9 L (12-20) BUN 12 (9-16) mg/dL Creatinine 0.85 (0.5-1.4) mg/dL Estim Creat Clear Calc 62.6 Estimated GFR > 60 Random Glucose 94 (60-115) mg/dL Calcium 8.9 (8.4-10.2) mg/dL Total Bilirubin 0.4 (0.0-1.0) mg/dL AST 42 H (5-31) U/L ALT 187 H (0-31) U/L Alkaline Phosphatase 139 H (39-117) U/L Total Protein 8.4 H (6.5-8.0) g/dL Albumin 4.3 (3.5-5.0) g/dL Urine Color Dark Yellow Urine Appearance Clear Urine pH 5.5 (5.0-9.0) Ur Specific [place] 1.020 (1.005-1.025) Urine Protein Negative (Neg-Trace) mg/dL Urine Glucose (UA) Negative (Negative) mg/dL Urine Ketones Negative (Negative) mg/dL Urine Blood Small (1+) H (Negative) Urine Nitrite Negative (Negative) Ur Leukocyte Esterase Trace H (Negative) Urine RBC 3-5 H (0-2) /HPF Urine WBC 0-5 (0-5) /HPF Ur Squamous Epith Cells 0-2 (0-2) /HPF Urine Bacteria None Seen (None Seen) Hyaline Casts 0-2 (0-2) /LPF Independent Interpretation I performed an independent interpretation of an: CT Scan Interpretation: I independently viewed the CT scan agree with the radiology report Radiology Impression Discussion of test interpretation with radiology: I have reviewed the radiologist's reading. Radiologist Impression: [address] [address] [address] Scan Report Signed Patient: Nila Gomez MR#: [id number] : 1960 Acct:[id number] Age/Sex: 63 / F ADM Date: 03/10/24 Loc: HO.ED Attending Dr: Ordering Physician: Ramandeep Damian NP Date of Service: 03/10/24 Procedure(s): CT abdomen pelvis wo IV con Accession Number(s): [id number] cc: Ramandeep Damian NP; Daphne Almanza MD~ EXAMINATION: CT ABDOMEN AND PELVIS WITHOUT CONTRAST CLINICAL INFORMATION: Abdominal pain. Flank pain. UTI. Evaluate for pyelonephritis. COMPARISON: Most recent CT abdomen/pelvis dated 04/04/2021. TECHNIQUE: Multidetector volumetric imaging was performed from the superior aspect of the liver through the pubic symphysis. Sagittal and coronal reformatted images were obtained on the technologist's workstation. This CT examination was performed using dose optimization techniques as appropriate, variously including the following: *Automated exposure control. *Adjustment of mA and/or kV according to patient size (this includes techniques or standardized protocols for targeted exams where dose is matched to indication/reason for exam; i.e. extremities or head). *Use of iterative reconstruction technique. DLP: 495 mGy-cm FINDINGS: LUNG BASES: The visualized lung bases are unremarkable. LIVER, GALLBLADDER, AND BILIARY TREE: The liver is normal in size, shape, and attenuation. No focal hepatic lesion or biliary ductal dilatation is present. The gallbladder is unremarkable with no evidence of radiopaque gallstones, gallbladder wall thickening, or obvious pericholecystic inflammatory changes. PANCREAS: Unremarkable. SPLEEN: Unremarkable. ADRENAL GLANDS: Unremarkable. KIDNEYS AND URETERS: The kidneys are normal in size, shape, and attenuation. No hydronephrosis, hydroureter, or calculi seen. No perinephric stranding. BLADDER: Unremarkable. GASTROINTESTINAL TRACT: Mild stool throughout the colon. No small or large bowel obstruction. No bowel wall thickening or inflammatory change. Unremarkable appendix. PERITONEAL CAVITY: No intra-abdominal free air or free fluid. No intra-abdominal mass or organized fluid collection/abscess formation. ABDOMINAL WALL: No significant hernia is appreciated. LYMPH NODES: No lymphadenopathy. VASCULAR: No abdominal aortic dilatation. Atherosclerotic calcifications. PELVIC VISCERA: Status post hysterectomy. OSSEOUS STRUCTURES: Unremarkable. CT/CT abdomen pelvis wo IV con IMPRESSION: 1. No renal or ureteral stone. No hydronephrosis or hydroureter. Unremarkable urinary bladder. 2. Mild stool throughout the colon. No small or large bowel obstruction. No bowel wall thickening or inflammatory change. Unremarkable appendix. 3. No intra-abdominal mass, lymphadenopathy, or ascites. Fleischner guidelines were followed. Electronically signed by: Parth Nina MD 03/10/2024 06:47 PM [facility] Independent Historian Clinical information obtained from an independent historian. History obtained from or confirmed by: Friend Discharge Plan Discharge Clinical Impression: Urinary tract infection Patient Disposition: Home, Self-Care Instructions: Urinary Tract Infection in Women (ED) Additional Instructions: Your blood work is normal. Your urine shows signs of infection Your CT scan is normal Return for fever, vomiting, worsening pain Testing for common vaginal infections and STDs are pending. We will call you if they are positive and you need additional treatment. Prescriptions: New cefpodoxime 200 mg tablet 200 mg PO BID Qty: 14 0RF Rx Instructions: must administer with a meal/food phenazopyridine [Pyridium] 200 mg tablet 200 mg PO TID PRN (Reason: pain) Qty: 6 0RF No Action hydrocodone-homatropine [Hycodan] 5-1.5 mg/5 mL (5 mL) syrup 5 ml PO Q6H PRN (Reason: cough) Qty: 60 0RF hydrocortisone acetate [Anusol-HC] 25 mg suppository 25 mg VT BID Qty: 12 0RF docusate sodium [Colace] 100 mg capsule 200 mg PO DAILY Qty: 60 0RF polyethylene glycol 3350 [Miralax] 17 gram/dose powder 17 g PO DAILY Qty: 510 0RF cyclobenzaprine 10 mg tablet 10 mg PO Q8H Qty: 20 0RF sumatriptan succinate 50 mg tablet See Rx Instructions .ROUTE .COMPLEX Qty: 10 0RF Rx Instructions: take 1 tab at onset of headache; if no relief may repeat 1 tab after at least 2 hrs; max = 4 tabs/24 hr metoclopramide HCl 5 mg tablet 5 mg PO .B.i.d. PRN (Reason: nausea and vomiting) Qty: 10 0RF lorazepam [Ativan] 1 mg tablet 1 mg PO BID PRN (Reason: anxiety) Qty: 8 0RF trazodone 50 mg tablet 50 mg PO BEDTIME PRN famotidine 20 mg tablet 20 mg PO BID pantoprazole 40 mg tablet,delayed release (DR/EC) 40 mg PO DAILY buspirone 30 mg tablet 30 mg PO BID loratadine 10 mg capsule 10 mg PO DAILY risperidone [Risperdal] 2 mg tablet 2 mg PO DAILY cyclobenzaprine 5 mg tablet 5 mg PO BEDTIME PRN (Reason: muscle spasm) 90 Days Qty: 90 3RF gabapentin 100 mg capsule PO Referrals: Daphne Almanza MD [Primary Care Provider] - 1 week Print Language: Russian
[2024-03-10 15:17] LABS: MANUAL DIFF FLAG NO
[2024-03-10 15:19] LABS: Basophils Absolute Auto 0.1 X10*3/uL (0.0-0.2); Basophils Percent Auto 0.8 % (0-2); Eosinophils Absolute Auto 0.1 X10*3/uL (0.0-0.4); Eosinophils Percent Auto 1.6 % (0-4); Hematocrit 40.5 % (37.0-47.0); Hemoglobin 13.6 g/dl (12.0-16.0); Imm Gran Abs Auto 0.03 X10*3/uL (0.00-0.03); Imm Gran Pct Auto 0.4 % (0.0-0.4); Lymphocytes Absolute Auto 1.6 X10*3/uL (1.2-4.9); Lymphocytes Percent Auto 20.3 % (20-40); Mean Corpuscular HGB Conc 33.6 g/dl (31.0-35.0); Mean Corpuscular Hemoglobin 30.4 pg (27.0-33.0); Mean Corpuscular Volume 90.6 fL (80.0-98.0); Monocytes Absolute Auto 0.6 X10*3/uL (0.1-1.2); Monocytes Percent Auto 7.9 % (2-11); Neutrophils Absolute Auto 5.5 x10*3/uL (2.0-8.3); Platelet Count 292 X10*3/uL (160-400); Red Blood Count 4.47 X10*6/uL (4.20-5.50); Red Cell Distribution Width 14.2 % (11.0-16.0)
[2024-03-10 15:21] LABS: Appearance Urine Clear; Color Urine Dark Yellow; Glucose Urine UA Negative (Negative); Leukocyte Esterase Urine Trace (Negative); Nitrite Urine Negative (Negative); PH 5.5 (5.0-9.0); UMIC TRIGGER UACC YES; Urine Blood Small (1+) (Negative); Urine Ketones Negative (Negative); Urine Protein Negative (Neg-Trace)
[2024-03-10 15:35] LABS: Bacteria Urine None Seen (None Seen); Hyaline Casts Urine 0-2 /LPF (0-2); Squamous Epithelial Cell Urine 0-2 /HPF (0-2); WBC Urine 0-5 /HPF (0-5)
[2024-03-10 15:37] LABS: Alanine Aminotransferase 187 U/L (0-31); Albumin Level 4.3 g/dL (3.5-5.0); Alkaline Phosphatase 139 U/L (39-117); Anion Gap 9 (12-20); Aspartate Amino Transferase 42 U/L (5-31); Bilirubin Total 0.4 mg/dL (0.0-1.0); Blood Urea Nitrogen 12 mg/dL (9-16); Calcium 8.9 mg/dL (8.4-10.2); Carbon Dioxide 29 mmol/L (22-29); Chloride 105 mmol/L (96-108); Creatinine Clr Calc Pharmacy 62.6; Estimated Glomerular Filt Rate > 60; Glucose Random 94 mg/dL (60-115); Potassium 4.1 mmol/L (3.3-5.1); Sodium 139 mmol/L (135-145); Total Protein 8.4 g/dL (6.5-8.0)
[2024-03-10 16:59] VITALS: BP 138/64; PULSE 61; RESP 17; TEMP 37.2; O2SAT 97
[2024-03-10 19:12] VITALS: BP 142/57; PULSE 64; RESP 16; TEMP 37.2; O2SAT 97
[2024-03-11 03:01] LABS: CT PCR NOT DETECTED (Not Detect.); NG PCR NOT DETECTED (Not Detect.)
[2024-03-11 11:08] LABS: Bacterial Vaginosis PCR NEGATIVE (Negative); Candida Group PCR NOT DETECTED (Not Detect); Candida glab krusei PCR NOT DETECTED (Not Detect); Trichomonas vaginalis PCR NOT DETECTED (Not Detect)
== END 2024-03-10 19:13 | disposition home or self-care (01) ==
PROVIDERS: Nurse Practitioner Family; Emergency Provider Internal Medicine; PCP Internal Medicine
DX: N39.0 Urinary tract infection, site not specified (principal); R10.2 Pelvic and perineal pain; R30.0 Dysuria; R35.0 Frequency of micturition; Z79.899 Other long term (current) drug therapy; Z91.198 Patient's noncompliance with other medical treatment and regimen for other reason
CPT/HCPCS: 0352U; 36415; 74176; 80053; 81001; 85025; 87491; 87591; 99283

== ENCOUNTER 2024-04-05 18:10 | Emergency (ER) | payer OTHER, SELFPAY ==
[2024-04-05 18:30] VITALS: BP 166/70; PULSE 74; RESP 16; TEMP 36.2; O2SAT 98; BMI 27.5
--- NOTE | 2024-04-05 18:30 | ED_ITS ---
HPI - General Adult General Chief complaint: Upper Respiratory Symptoms Stated complaint: bladder pain Time Seen by Provider: 04/05/24 19:58 Source: patient Mode of arrival: ambulatory Limitations: language barrier (Nicaraguan-speaking inside wirer utilized) History of Present Illness ED Provider: astrid miles NP HPI narrative: Patient is a 63-year-old female who presents to the emergency department for evaluation of 1 month with suprapubic/bladder pain. She has been to urgent care 3 times, this ER, as well as [facility] 2 weeks ago. She has been advised that she has blood in her urine, she has completed multiple courses of antibiotics including most recently amoxicillin that she finished 3 days ago. Reports she has not yet followed with a urologist. Related Data Home Medications ?Medication ?Instructions ?Recorded ?Confirmed buspirone 30 mg tablet 30 mg PO BID 03/04/20 03/04/20 famotidine 20 mg tablet 20 mg PO BID 03/04/20 03/04/20 loratadine 10 mg capsule 10 mg PO DAILY 03/04/20 03/04/20 pantoprazole 40 mg tablet,delayed 40 mg PO DAILY 03/04/20 03/04/20 release trazodone 50 mg tablet 50 mg PO BEDTIME PRN 03/04/20 03/04/20 risperidone 2 mg tablet (Risperdal) 2 mg PO DAILY 10/13/20 gabapentin 100 mg capsule mg PO 02/28/24 Previous Rx's ?Medication ?Instructions ?Recorded cyclobenzaprine 5 mg tablet 5 mg PO BEDTIME PRN muscle spasm 10/13/20 90 days #90 tabs hydrocodone-homatropine 5 mg-1.5 5 ml PO Q6H PRN cough #60 mL 10/21/20 mg/5 mL (5 mL) oral syrup (Hycodan) docusate sodium 100 mg capsule 200 mg (2 x 100 mg) PO DAILY #60 03/27/21 (Colace) caps hydrocortisone acetate 25 mg 25 mg MS BID #12 ea 03/27/21 rectal suppository (Anusol-HC) polyethylene glycol 3350 17 17 g PO DAILY #510 grams 03/27/21 gram/dose oral powder (Miralax) cyclobenzaprine 10 mg tablet 10 mg PO Q8H #20 tabs 02/22/22 lorazepam 1 mg tablet (Ativan) 1 mg PO BID PRN anxiety #8 tabs 12/16/22 metoclopramide HCl 5 mg tablet 5 mg PO .B.i.d. PRN nausea and 03/15/23 vomiting #10 tabs sumatriptan succinate 50 mg tablet See Rx Instructions PO .COMPLEX 03/15/23 #10 tabs cefpodoxime 200 mg tablet 200 mg PO BID #14 tabs 03/10/24 phenazopyridine 200 mg tablet 200 mg PO TID PRN pain 6 doses #6 03/10/24 (Pyridium) tabs ibuprofen 600 mg tablet 600 mg PO Q8H PRN pain #30 tabs 04/05/24 phenazopyridine 200 mg tablet 200 mg PO TID 6 doses #3 tabs 04/05/24 (Pyridium) Allergies Allergy/AdvReac Type Severity Reaction Status Date / Time aspirin [ASA] Allergy Intermediate NAUSEA & Verified 04/05/24 18:31 VOMITING, stomach upset, nausea and vomiting Review of Systems 2 Review of Systems: Yes all other systems are reviewed and are negative [facility] Past Medical History Attestation statement: The following information was validated with the patient. Source: old records reviewed Medical History Carpal tunnel syndrome Asthma Vocal cord anomaly Bloating Acid reflux Surgical History Hx of tubal ligation Social History Social History Household Members Other:: alone Alcohol intake: never Patient Tobacco Use Status: Former Tobacco user Tobacco use type: Cigarette Years Smoked: quit 12 years ago Current occupational status: unemployed Physical Exam ED Vital Signs: Vital Signs - 24 hr 04/05/24 18:30 Temperature 97.1 F Pulse Rate 74 Respiratory Rate 16 Blood Pressure 166/70 H Pulse Oximetry 98 Oxygen Delivery Method Room Air BMI result Body Mass Index 27.5 Appearance: Alert.?Oriented to person, place and time. No acute distress.?Normal affect. CVS: Heart sounds normal. Normal heart rate and rhythm.? Pulses normal.?? Respiratory: No respiratory distress.? Lung sounds clear to auscultation bilaterally?? Abdomen: Soft and non-tender. Normoactive bowel sounds. No CVAT Skin: Skin warm and dry.? Normal skin color.? ? Extremities: No lower extremity edema.? Neuro: Moves all extremities spontaneously. Sensation intact bilaterally. Ambulates with normal steady gait. Medical Decision Making Medical Decision Making [facility] Narrative: Patient is a 63-year-old female with past medical history of fibromyalgia who presents emergency department for evaluation of suprapubic discomfort, ?bladder pain? fullness sensation with a urinary frequency. As per HPI has had multiple ED/urgent care visits. On review of medical record from 03/10/2024 at our hospital, urine does not show significantly compelling evidence to suggest UTI she was however already on antibiotics at that time no urine culture was obtained. Chlamydia gonorrhea tests were negative. Vaginitis panel was negative. Unfortunately I do not have access to her subsequent urinalysis or urine culture reports. Suspect there is a possibility this may be cystitis rather than true urinary tract infection. She denies pelvic pain abnormal vaginal discharge or bleeding. She declines pelvic examination at this time. She does have an upcoming appointment with her inside sales coordinator that she was referred to her primary care doctor due to these ongoing symptoms. In addition I will give her a referral to Urology as she may benefit from having cystoscopy. I will send prescription for Pyridium in addition to NSAID to her pharmacy. Discussed strict return precautions. All questions answered. Stable for discharge Differential Diagnosis Differential Diagnoses: The differential diagnosis associated with the presentation includes (See narrative above) Admission/Observation Consideration of admission/observation: Escalation of care including admission/observation considered (See narrative above) Lab Data MDM Lab Attestation statement: I reviewed the patient's lab results. CBC is without leukocytosis anemia or thrombocytopenia. No electrolyte derangement. No TYRESE. Urinalysis not consistent with urinary tract infection, trace microscopic hematuria which appears to be consistent with her prior testing. 04/05/24 18:45 04/05/24 18:45 Labs: Lab Results 04/05/24 04/05/24 Range/Units 18:45 18:48 WBC 6.7 (4.8-10.8) X10*3/uL RBC 4.34 (4.20-5.50) X10*6/uL Hgb 13.0 (12.0-16.0) g/dl Hct 39.3 (37.0-47.0) % MCV 90.6 (80.0-98.0) fL MCH 30.0 (27.0-33.0) pg MCHC 33.1 (31.0-35.0) g/dl RDW 13.9 (11.0-16.0) % Plt Count 310 (160-400) X10*3/uL MPV 10.4 (9.4-12.3) fL Immature Gran % (Auto) 1.0 H (0.0-0.4) % Neut % (Auto) 61.6 (45-73) % Lymph % (Auto) 27.3 (20-40) % Archuleta % (Auto) 7.2 (2-11) % Eos % (Auto) 1.9 (0-4) % Baso % (Auto) 1.0 (0-2) % Lymph # (Auto) 1.8 (1.2-4.9) X10*3/uL [place] # (Auto) 0.5 (0.1-1.2) X10*3/uL Eos # (Auto) 0.1 (0.0-0.4) X10*3/uL Baso # (Auto) 0.1 (0.0-0.2) X10*3/uL Abs Immat Gran (auto) 0.07 H (0.00-0.03) X10*3/uL Absolute Neuts (auto) 4.1 (2.0-8.3) x10*3/uL Absolute Nucleated RBC 0.000 (0.0-0.012) X10*3/uL Nucleated RBC % (auto) 0.0 (0.0-0.2) /100WBC Sodium 143 (135-145) mmol/L Potassium 4.5 (3.3-5.1) mmol/L Chloride 108 (96-108) mmol/L Carbon Dioxide 29 (22-29) mmol/L Anion Gap 11 L (12-20) BUN 18 H (9-16) mg/dL Creatinine 1.12 (0.5-1.4) mg/dL Estim Creat Clear Calc 48.3 Estimated GFR 49 Random Glucose 94 (60-115) mg/dL Calcium 9.5 D (8.4-10.2) mg/dL Total Bilirubin 0.2 (0.0-1.0) mg/dL AST 25 (5-31) U/L ALT 32 H (0-31) U/L Alkaline Phosphatase 96 (39-117) U/L Total Protein 8.1 H (6.5-8.0) g/dL Albumin 4.3 (3.5-5.0) g/dL Urine Color Yellow Urine Appearance Clear Urine pH 5.5 (5.0-9.0) Ur Specific [place] 1.025 (1.005-1.025) Urine Protein Negative (Neg-Trace) mg/dL Urine Glucose (UA) Negative (Negative) mg/dL Urine Ketones Trace (Negative) mg/dL Urine Blood Trace H (Negative) Urine Nitrite Negative (Negative) Ur Leukocyte Esterase Negative (Negative) Urine RBC 0-2 (0-2) /HPF Urine WBC 0-5 (0-5) /HPF Ur Squamous Epith Cells 0-2 (0-2) /HPF Urine Bacteria None Seen (None Seen) Hyaline Casts 0-2 (0-2) /LPF External Record Review External record reviewed: Outpatient record Prescription Management I considered prescription management with: Other (See narrative above) Discharge Plan Discharge Clinical Impression: Cystitis Patient Disposition: Home, Self-Care Instructions: Interstitial Cystitis (ED) Prescriptions: New phenazopyridine [Pyridium] 200 mg tablet 200 mg PO TID Qty: 3 0RF ibuprofen 600 mg tablet 600 mg PO Q8H PRN (Reason: pain) Qty: 30 0RF No Action hydrocodone-homatropine [Hycodan] 5-1.5 mg/5 mL (5 mL) syrup 5 ml PO Q6H PRN (Reason: cough) Qty: 60 0RF hydrocortisone acetate [Anusol-HC] 25 mg suppository 25 mg MS BID Qty: 12 0RF docusate sodium [Colace] 100 mg capsule 200 mg PO DAILY Qty: 60 0RF polyethylene glycol 3350 [Miralax] 17 gram/dose powder 17 g PO DAILY Qty: 510 0RF cyclobenzaprine 10 mg tablet 10 mg PO Q8H Qty: 20 0RF sumatriptan succinate 50 mg tablet See Rx Instructions .ROUTE .COMPLEX Qty: 10 0RF Rx Instructions: take 1 tab at onset of headache; if no relief may repeat 1 tab after at least 2 hrs; max = 4 tabs/24 hr metoclopramide HCl 5 mg tablet 5 mg PO .B.i.d. PRN (Reason: nausea and vomiting) Qty: 10 0RF cefpodoxime 200 mg tablet 200 mg PO BID Qty: 14 0RF Rx Instructions: must administer with a meal/food phenazopyridine [Pyridium] 200 mg tablet 200 mg PO TID PRN (Reason: pain) Qty: 6 0RF lorazepam [Ativan] 1 mg tablet 1 mg PO BID PRN (Reason: anxiety) Qty: 8 0RF trazodone 50 mg tablet 50 mg PO BEDTIME PRN famotidine 20 mg tablet 20 mg PO BID pantoprazole 40 mg tablet,delayed release (DR/EC) 40 mg PO DAILY buspirone 30 mg tablet 30 mg PO BID loratadine 10 mg capsule 10 mg PO DAILY risperidone [Risperdal] 2 mg tablet 2 mg PO DAILY cyclobenzaprine 5 mg tablet 5 mg PO BEDTIME PRN (Reason: muscle spasm) 90 Days Qty: 90 3RF gabapentin 100 mg capsule PO Referrals: Daphne Almanza MD [Primary Care Provider] - Print Language: Nicaraguan
[2024-04-05 18:50] LABS: MANUAL DIFF FLAG NO
[2024-04-05 18:57] LABS: Appearance Urine Clear; Color Urine Yellow; Glucose Urine UA Negative (Negative); Leukocyte Esterase Urine Negative (Negative); Nitrite Urine Negative (Negative); PH 5.5 (5.0-9.0); Specific Gravity - Urine 1.025 (1.005-1.025); UMIC TRIGGER UACC YES; Urine Blood Trace (Negative); Urine Ketones Trace mg/dL (Negative); Urine Protein Negative (Neg-Trace)
[2024-04-05 19:02] LABS: Bacteria Urine None Seen (None Seen); Hyaline Casts Urine 0-2 /LPF (0-2); RBC Urine 0-2 /HPF (0-2); Squamous Epithelial Cell Urine 0-2 /HPF (0-2); WBC Urine 0-5 /HPF (0-5)
[2024-04-05 19:11] LABS: Alanine Aminotransferase 32 U/L (0-31); Albumin Level 4.3 g/dL (3.5-5.0); Anion Gap 11 (12-20); Aspartate Amino Transferase 25 U/L (5-31); Bilirubin Total 0.2 mg/dL (0.0-1.0); Blood Urea Nitrogen 18 mg/dL (9-16); Calcium 9.5 mg/dL (8.4-10.2); Carbon Dioxide 29 mmol/L (22-29); Chloride 108 mmol/L (96-108); Creatinine Clr Calc Pharmacy 48.3; Estimated Glomerular Filt Rate 49; Glucose Random 94 mg/dL (60-115); Potassium 4.5 mmol/L (3.3-5.1); Sodium 143 mmol/L (135-145); Total Protein 8.1 g/dL (6.5-8.0)
[2024-04-05 19:32] LABS: Basophils Absolute Auto 0.1 X10*3/uL (0.0-0.2); Eosinophils Absolute Auto 0.1 X10*3/uL (0.0-0.4); Eosinophils Percent Auto 1.9 % (0-4); Hematocrit 39.3 % (37.0-47.0); Imm Gran Abs Auto 0.07 X10*3/uL (0.00-0.03); Lymphocytes Absolute Auto 1.8 X10*3/uL (1.2-4.9); Lymphocytes Percent Auto 27.3 % (20-40); Mean Corpuscular HGB Conc 33.1 g/dl (31.0-35.0); Mean Corpuscular Volume 90.6 fL (80.0-98.0); Mean Platelet Volume 10.4 fL (9.4-12.3); Monocytes Absolute Auto 0.5 X10*3/uL (0.1-1.2); Monocytes Percent Auto 7.2 % (2-11); Neutrophils Absolute Auto 4.1 x10*3/uL (2.0-8.3); Neutrophils Percent Auto 61.6 % (45-73); Platelet Count 310 X10*3/uL (160-400); Red Blood Count 4.34 X10*6/uL (4.20-5.50); Red Cell Distribution Width 13.9 % (11.0-16.0); White Blood Count 6.7 X10*3/uL (4.8-10.8)
[2024-04-05 19:41] LABS: Alkaline Phosphatase 96 U/L (39-117)
[2024-04-05 20:05] VITALS: BP 166/70; PULSE 74; RESP 16; TEMP 36.2; O2SAT 98
== END 2024-04-05 20:07 | disposition home or self-care (01) ==
PROVIDERS: Nurse Practitioner Family; Emergency Provider Emergency Medicine; PCP Internal Medicine
DX: N30.80 Other cystitis without hematuria (principal); R39.89 Other symptoms and signs involving the genitourinary system; Z79.899 Other long term (current) drug therapy
CPT/HCPCS: 36415; 80053; 81001; 85025; 99283

== ENCOUNTER 2024-05-01 08:24 | Emergency (ER) | payer OTHER, SELFPAY ==
--- NOTE | ~2024-05-01 | CT_ITS ---
EXAMINATION: CT ANGIOGRAM ABDOMEN AND PELVIS CLINICAL INFORMATION: Abdominal pain, rule out mesenteric arterial occlusion. COMPARISON: CT abdomen and pelvis 03/10/2024. No prior CT angiography. TECHNIQUE: Multiple axial images were obtained through the abdomen and pelvis following the administration of 80 mL of Omnipaque [address] angiography Arterial phase acquisition. Acquisition Images were reviewed on a dedicated 3-D workstation. Reformats including thin section axial, and MIPPED reformats were constructed from the axial data set. Extensive vascular post-processing, including 2-dimensional and 3-dimensional reformatted images were created and reviewed on an independent workstation. This CT examination was performed using dose optimization techniques as appropriate, variously including the following: *Automated exposure control *Adjustment of mA and/or kV according to patient size (this includes techniques or standardized protocols for targeted exams where dose is matched to indication/reason for exam; i.e. extremities or head) *Use of iterative reconstruction technique FINDINGS: LUNG BASES: Lung bases demonstrate mild dependent atelectasis and minimal atelectasis in the lingula. There is mild cardiac enlargement. There is no pericardial effusion. There is a moderate-sized type III hiatus hernia at the GE junction. There are no effusions. LIVER, GALLBLADDER, AND BILIARY TREE: The liver is normal in size, shape, and attenuation. No enhancing arterial phase focal hepatic lesion or biliary ductal dilatation is present. The gallbladder is unremarkable with no evidence of radiopaque gallstones, gallbladder wall thickening, or obvious pericholecystic inflammatory changes. PANCREAS: Unremarkable. SPLEEN: Unremarkable. ADRENAL GLANDS: 6 mm left adrenal adenoma. Adrenals otherwise normal. KIDNEYS AND URETERS: The kidneys are normal in size, shape, and attenuation. No hydronephrosis, hydroureter, or calculi seen. No perinephric stranding. BLADDER: Normal in appearance. A tiny focus of intraluminal gas is most likely iatrogenic. GASTROINTESTINAL TRACT: Mild stool throughout the colon. Oral contrast is present in the transverse and descending/sigmoid colon. No small or large bowel obstruction. Mild wall thickening of the distal sigmoid colon is present, with mild adjacent inflammation and small lymph nodes, findings suggesting a segmental colitis. There appears to be proximal rectal involvement. This represents a change from the prior study. Normal appendix. Small bowel normal in caliber and course without wall thickening or inflammation. PERITONEAL CAVITY: No intra-abdominal free air. Trace free fluid in the pelvic recesses. No intra-abdominal mass or organized fluid collection/abscess formation. ABDOMINAL WALL: No significant hernia is appreciated. LYMPH NODES: No abnormal lymphadenopathy. Borderline prominent likely reactive inguinal lymph nodes. Small nodes along the left pelvic sidewall adjacent to the colon, presumably reactive. VASCULAR: -Aorta: Heavy atheromatous calcification without aneurysm or ectasia. -Celiac artery: Patent and normal in caliber and course. No stenosis. Normal arborization of the distal segments. -SMA: There is approximately a 50% stenosis at the origin due to relatively soft plaque. The remainder of the artery opacifies normally and the distal branches opacify normally. There is no embolus or occlusion. -Renal arteries: Left renal artery is solitary, and demonstrates a mild origin stenosis due to soft and calcified plaque. The remainder of the artery is patent. Right renal artery is solitary, demonstrates a mild stenosis of the origin calcific plaque. Remainder of the artery is patent. -SHUN: Patent origin and proximally patent. Hypoenhancement of the medial sigmoid and superior rectal branches (best appreciated on the coronal MIP series 10, images 58-70). -Iliac arteries: Heavy atheromatous calcification without evidence stenosis. -Hypogastric arteries: Moderate atheromatous calcification without significant flow-limiting stenosis. -Common femoral arteries: Patent bilaterally. PELVIC VISCERA: Status post hysterectomy. No adnexal masses. OSSEOUS STRUCTURES: Unremarkable. CT/CT angio abdomen pelvis IMPRESSION: 1. There is heavy atheromatous calcification of the aorta and iliac arteries without aneurysm, dissection, or flow-limiting stenosis. 2. There is approximately 50% stenosis at the origin of the SMA. The more distal branches appear normal. No embolus. 3. Mild stenoses of both renal arteries at the origins. 4. Thickening of the distal sigmoid and proximal rectum with abutting mild inflammation and small associated abutting lymph nodes. Segmental colitis suspected, likely ischemic, with hypoenhancement of the superior rectal and sigmoid branches of the SHUN. 5. Mild constipation. Residual oral contrast is seen in the transverse and descending/sigmoid colon. 6. Mild to moderate type III hiatus hernia. 7. No small bowel inflammatory changes or other abnormality. Electronically signed by: Fransisco Ramirez MD 05/01/2024 01:03 PM [facility]
[2024-05-01 08:46] VITALS: BP 103/70; PULSE 59; RESP 20; TEMP 36.6; O2SAT 99; BMI 26.5
[2024-05-01 09:17] LABS: MANUAL DIFF FLAG NO
[2024-05-01 09:21] LABS: Basophils Absolute Auto 0.1 X10*3/uL (0.0-0.2); Basophils Percent Auto 0.8 % (0-2); Eosinophils Absolute Auto 0.2 X10*3/uL (0.0-0.4); Eosinophils Percent Auto 2.3 % (0-4); Hematocrit 37.4 % (37.0-47.0); Hemoglobin 12.9 g/dl (12.0-16.0); Imm Gran Abs Auto 0.03 X10*3/uL (0.00-0.03); Imm Gran Pct Auto 0.4 % (0.0-0.4); Lymphocytes Absolute Auto 1.5 X10*3/uL (1.2-4.9); Lymphocytes Percent Auto 20.4 % (20-40); Mean Corpuscular HGB Conc 34.5 g/dl (31.0-35.0); Mean Corpuscular Hemoglobin 30.2 pg (27.0-33.0); Mean Corpuscular Volume 87.6 fL (80.0-98.0); Mean Platelet Volume 10.4 fL (9.4-12.3); Monocytes Absolute Auto 0.8 X10*3/uL (0.1-1.2); Monocytes Percent Auto 10.5 % (2-11); Neutrophils Absolute Auto 4.8 x10*3/uL (2.0-8.3); Neutrophils Percent Auto 65.6 % (45-73); Platelet Count 300 X10*3/uL (160-400); Red Blood Count 4.27 X10*6/uL (4.20-5.50); Red Cell Distribution Width 13.4 % (11.0-16.0); White Blood Count 7.3 X10*3/uL (4.8-10.8)
[2024-05-01 09:22] LABS: Appearance Urine Clear; Color Urine Yellow; Glucose Urine UA Negative (Negative); Leukocyte Esterase Urine Negative (Negative); Nitrite Urine Negative (Negative); PH 8.5 (5.0-9.0); Specific Gravity - Urine 1.015 (1.005-1.025); UMIC TRIGGER UACC YES; Urine Blood Negative (Negative); Urine Ketones Negative (Negative); Urine Protein 30 (1+) mg/dL (Neg-Trace)
[2024-05-01 09:27] LABS: Bacteria Urine None Seen (None Seen); Hyaline Casts Urine 0-2 /LPF (0-2); RBC Urine 0-2 /HPF (0-2); Squamous Epithelial Cell Urine 0-2 /HPF (0-2); WBC Urine 0-5 /HPF (0-5)
[2024-05-01 09:41] LABS: Alanine Aminotransferase 18 U/L (0-31); Albumin Level 4.1 g/dL (3.5-5.0); Alkaline Phosphatase 73 U/L (39-117); Anion Gap 13 (12-20); Aspartate Amino Transferase 25 U/L (5-31); Bilirubin Direct 0.2 mg/dL (0.0-0.5); Bilirubin Total 0.4 mg/dL (0.0-1.0); Blood Urea Nitrogen 13 mg/dL (9-16); Calcium 9.3 mg/dL (8.4-10.2); Carbon Dioxide 23 mmol/L (22-29); Chloride 109 mmol/L (96-108); Creatinine Clr Calc Pharmacy 61.2; Estimated Glomerular Filt Rate > 60; Glucose Random 91 mg/dL (60-115); Lipase 35 U/L (8-78); Potassium 3.9 mmol/L (3.3-5.1); Sodium 141 mmol/L (135-145); Total Protein 8.1 g/dL (6.5-8.0)
--- OUTSIDE RECORDS SUMMARY | 2024-05-01 09:56 | XMS_ITS | Encounter Summary ---
Author Organization [facility] Address [address] [place] [address] Care Team Providers Care Control Center Operator Name Role Phone Daphne Almanza MD Primary Care Provider [phone] Daphne Almanza MD Unavailable [phone] Encounter Details Date Type Department Care Team Description 09/05/2022 Carton Forming Machine Helper Report Medical Records [address] [place] [id number] Victor Hugo Mckeon PA Social History Tobacco Use Types Packs/Day Years Used Date Smoking Tobacco: Former Cigarettes Smokeless Tobacco: Never Comments:started age 13 yrs; max 1/4 PPD; quit age 48 Alcohol Use Standard Drinks/Week Comments No 0 (1 standard drink = 0.6 oz pur e alcohol) Sex Assigned at Date Recorded Not on file Job Start Date Occupation Industry Not on file Not on file Not on file documented as of this encounter Plan of Treatment Not on file documented as of this encounter Visit Diagnoses Not on filedocumented in this encounter Care Teams Control Center Operator Relationship Specialty Start Date End Date Daphne Almanza MD [address] [place] [phone] PCP - General Internal Medicine 07/31/15 Daphne Almanza MD [address] [place] [address] 07/29/15 documented as of this encounter
--- OUTSIDE RECORDS SUMMARY | 2024-05-01 09:56 | XMS_ITS | Encounter Summary ---
Author Organization [facility] Address [address] [place] [address] Care Team Providers Care Heel Seat Sander Name Role Phone Daphne Almanza MD Primary Care Provider [phone] Daphne Almanza MD Unavailable [phone] Reason for Visit * Reason Onset Date Comments er follow up 07/12/2018 [facility] Encounter Details Date Type Department Care Team Description 07/12/2018 Telephone Adult Medicine [facility] [address] [place] [address] [phone] Daphne Almanza MD [address] [place] [address] [phone] er follow up ([facility]) Social History Tobacco Use Types Packs/Day Years [...] on file documented as of this encounter Miscellaneous Notes * Telephone Encounter - Shital Fernandez - 07/12/2018 4:57 PM EDT ER follow-up appointment booked YES 07/16/18 If ER or UC follow up, can be booked with APC or MD. If hospital admission follow up MUST be booked with a physician Appointment time: 3:30PM Provider visit is scheduled with: Mavis Osborn PA-C Hospital/ center patient was treated at: [facility] Date of visit: 07/10/18 Was this only an ER/UC visit or was the patient admitted to the hospital? ER visit onlyER visit only If patient was admitted what was the date of discharge? N/A Reason/diagnosis for visit or stay: fractured arm Was visit or stay related to an injury? YES If yes, what was the date of injury (DOI)? 07/07/18 If yes, was the injury due to N/A Tests performed: Lab: YES X-ray: YES EKG: YES Other tests. If yes, what?; N/A * Telephone Encounter - Suma Pompa R.N. - 07/12/2018 3:32 PM EDT Telephone Information: Left vm for pt to return my call Needs [facility] er f/u appt for Fx 5th right metacarpal. documented in this encounter Plan of Treatment Not on file documented as of this encounter Visit Diagnoses Not on filedocumented in this encounter Care Teams Heel Seat Sander Relationship Specialty Start Date End Date Daphne Almanza MD [address] [place] [address] PCP - General Internal Medicine 07/31/15 Daphne Almanza MD [address] [place] [address] 07/29/15 documented as of this encounter
--- OUTSIDE RECORDS SUMMARY | 2024-05-01 09:56 | XMS_ITS | Encounter Summary ---
Author Organization [facility] Address [address] [place] [address] Care Team Providers Care Extension Course Counselor Name Role Phone Daphne Almanza MD Primary Care Provider Daphne Almanza MD Unavailable [phone] Reason for Referral * Non CATRACHITA (Routine) - Authorized/Booked Specialty Diagnoses / Procedures Referred By Contmel olsen Referred To Contact Pulmonology Diagnoses CHUCKIE (obstructive sleep apnea) Procedures REFERRAL TO PULMONOLOGY Mavis Osborn PA-C [address] [place] [phone] Pulmo/[place] [address] [phone] Referral ID Status Reason Start Date Expiration Date V isits Requested Visits Authorized [id number] Authorized/B ooked 05/24/2021 05/24/2022 1 1 Encounter Details Date Type Department Care Team Description 05/24/2021 Orders Only Adult Medicine [address] [phone] Mavis Osborn PA-C [address] [place] [address] [phone] CHUCKIE (obstructive sleep apnea) (Primary Dx) Social History Tobacco Use Types Packs/Day Years [...] file Not on file Not on file COVID-19 Exposure Response Date Recorded In the last month, have you been in contact with someone who was confirmed or suspected to have Coronavirus / COVID-19? No / Unsure 05/18/2021 1:54 PM EST documented as of this encounter Plan of Treatment Not on file documented as of this encounter Visit Diagnoses Diagnosis CHUCKIE (obstructive sleep apnea)- Primary Obstructive sleep apnea (adult) (pediatric) documented in this encounter Care Teams Extension Course Counselor Relationship Specialty Start Date End Date Daphne Almanza MD [address] [place] [phone] PCP - General Internal Medicine 07/31/15 Daphne Almanza MD [address] [place] [phone] 07/29/15 documented as of this encounter
--- OUTSIDE RECORDS SUMMARY | 2024-05-01 09:56 | XMS_ITS | Encounter Summary ---
Author Organization [facility] Address [address] [place] [address] Care Team Providers Care Corner Block Cutter Name Role Phone Daphne Almanza MD Primary Care Provider [phone] Daphne Almanza MD Unavailable [phone] Encounter Details Date Type Department Care Team Description 10/29/2022 [facility] [address] [place] [phone] Social History Tobacco Use Types Packs/Day Years Used Date Smoking Tobacco: Former Cigarettes 0.3 35 Smokeless Tobacco: Never Comments:started age 13 yrs; max 1/4 PPD; quit age 48 Alcohol Use Standard Drinks/Week Comments No 0 (1 standard drink = 0.6 oz pur e alcohol) Sex Assigned at Date Recorded Not on file Job Start Date Occupation Industry Not on file Not on file Not on file COVID-19 Exposure Response Date Recorded In the last 10 days, have yo u been in contact with someone who was confirmed or suspected to have Coronavirus/COVID-19? No / Unsure 10/11/2022 1:23 PM EDT documented as of this encounter Plan of Treatment Not on file documented as of this encounter Procedures Procedure Name Priority Date/Time Associated Diagnosis Comments OUTSIDE EKG Routine 10/29/2022 OUTSIDE LAB Routine 10/29/2022 CONTRAST CAT SCAN OF HEAD/BRAIN Routine 10/29/2022 documented in this encounter Results * CONTRAST CAT SCAN OF HEAD/BRAIN (10/29/2022) Provider Default CT SCANS * OUTSIDE LAB (10/29/2022) Provider Default LAB * OUTSIDE EKG (10/29/2022) Provider Default CARDIOLOGY documented in this encounter Visit Diagnoses Not on filedocumented in this encounter Care Teams Corner Block Cutter Relationship Specialty Start Date End Date Daphne Almanza MD [address] [place] [address] [phone] PCP - General Internal Medicine 07/31/15 Daphne Almanza MD [address] [place] [phone] 07/29/15 documented as of this encounter
--- OUTSIDE RECORDS SUMMARY | 2024-05-01 09:56 | XMS_ITS | Encounter Summary ---
Author Organization [facility] Address [address] [place] [address] Care Team Providers Care Automatic Spinning Lathe Operator Name Role Phone Daphne Almanza MD Primary Care Provider [phone] Daphne Almanza MD Unavailable [phone] Reason for Visit * Reason Onset Date Comments Faxed Order 01/25/2023 [facility] Medicaid Progress Note 01/24/23 Encounter Details Date Type Department Care Team Description 01/25/2023 Telephone Adult Medicine [facility] [address] [place] [address] [phone] Daphne Almanza MD [address] [place] [address] [phone] Faxed Order ([facility] Medicaid Progress Note 01/24/23) Social History Tobacco Use Types Packs/Day Years [...] suspected to have Coronavirus/COVID-19? No / Unsure 01/25/2023 10:26 AM EDT documented as of this encounter Plan of Treatment Not on file documented as of this encounter Visit Diagnoses Not on filedocumented in this encounter Care Teams Automatic Spinning Lathe Operator Relationship Specialty Start Date End Date Daphne Almanza MD [address] [place] [phone] PCP - General Internal Medicine 07/31/15 Daphne Almanza MD [address] [place] [phone] 07/29/15 documented as of this encounter
--- OUTSIDE RECORDS SUMMARY | 2024-05-01 09:56 | XMS_ITS | Encounter Summary ---
Author Organization [facility] Address [address] [facility] [place] [address] Care Team Providers Care Asphalt Paver Name Role Phone Daphne Almanza MD Primary Care Provider [phone] Daphne Almanza MD Unavailable [phone] Encounter Details Date Type Department Care Team Description 11/07/2022 Auto Top Mechanic Report Medical Records [address] [place] [phone] Victor Hugo Mckeon PA Social History Tobacco [...] on filedocumented in this encounter Care Teams Asphalt Paver Relationship Specialty Start Date End Date Daphne Almanza MD [address] [place] [phone] PCP - General Internal Medicine 07/31/15 Daphne Almanza MD [address] [place] [phone] 07/29/15 documented as of this encounter
--- OUTSIDE RECORDS SUMMARY | 2024-05-01 09:56 | XMS_ITS | Encounter Summary ---
Author Organization [facility] Address [address] [place] [address] Care Team Providers Care Fly Frame Tender Name Role Phone Daphne Almanza MD Primary Care Provider [phone] Daphne Almanza MD Unavailable [phone] Reason for Visit * Reason Onset Date Comments Faxed Order 01/04/2021 Encounter Details Date Type Department Care Team Description 01/04/2021 Telephone Adult Medicine [facility] [address] [place] [address] [phone] Daphne Almanza MD [address] [place] [phone] Faxed Order Social History Tobacco Use Types Packs/Day Years [...] encounter Miscellaneous Notes * Telephone Encounter - Imani Paz - 01/04/2021 11:19 AM EDT Fax received from [facility] requesting Dr. Daphne Almanza's signature documented in this encounter Plan of Treatment Not on file documented as of this encounter Visit Diagnoses Not on filedocumented in this encounter Care Teams Fly Frame Tender Relationship Specialty Start Date End Date Daphne Almanza MD [address] [place] [address] [phone] PCP - General Internal Medicine 07/31/15 Daphne Almanza MD [address] [place] [phone] 07/29/15 documented as of this encounter
--- OUTSIDE RECORDS SUMMARY | 2024-05-01 09:56 | XMS_ITS | Encounter Summary ---
Author Organization [facility] Address [address] [place] [address] Care Team Providers Care Film Casting Operator Name Role Phone Daphne Almanza MD Primary Care Provider [phone] Daphne Almanza MD Unavailable [phone] Encounter Details Date Type Department Care Team Description 10/13/2020 Artisan Plasterer Report Medical Records [address] [place] [address] Jami Padilla MD Social History Tobacco Use Types Packs/Day Years [...] have Coronavirus / COVID-19? No / Unsure 09/30/2020 1:48 PM EDT documented as of this encounter Plan of Treatment Not on file documented as of this encounter Visit Diagnoses Not on filedocumented in this encounter Care Teams Film Casting Operator Relationship Specialty Start Date End Date Daphne Almanza MD [address] [place] [phone] PCP - General Internal Medicine 07/31/15 Daphne Almanza MD [address] [place] [address] 07/29/15 documented as of this encounter
--- OUTSIDE RECORDS SUMMARY | 2024-05-01 09:56 | XMS_ITS | Encounter Summary ---
Author Organization [facility] Address [address] [place] [address] Care Team Providers Care Shot Blaster Name Role Phone Daphne Almanza MD Primary Care Provider [phone] Daphne Almanza MD Unavailable [phone] Encounter Details Date Type Department Care Team Description 05/11/2018 Business Doc Medical Records [address] [place] [address] Abstract, Provider Social History Tobacco Use Types Packs/Day Years [...] on filedocumented in this encounter Care Teams Shot Blaster Relationship Specialty Start Date End Date Daphne Almanza MD [address] [place] [address] PCP - General Internal Medicine 07/31/15 Daphne Almanza MD [address] [place] [address] 07/29/15 documented as of this encounter
--- OUTSIDE RECORDS SUMMARY | 2024-05-01 09:56 | XMS_ITS | Encounter Summary ---
Author Organization [facility] Address [address] [place] [address] Care Team Providers Care Pattern Attendant Name Role Phone Daphne Almanza MD Primary Care Provider [phone] Daphne Almanza MD Unavailable [phone] Reason for Visit * Reason Comments E-prescribe Rx Request Encounter Details Date Type Department Care Team Description 04/05/2021 Refill Gastroenterology - [place] [address] [phone] Andrew Nino PA-C [address] [address] E-prescribe Rx Request Social History Tobacco Use Types Packs/Day Years [...] or suspected to have Coronavirus / COVID-19? Unable to assess 04/01/2021 7:15 AM EST documented as of this encounter Miscellaneous Notes * Telephone Encounter - Kayla Ruano M.A. - 04/05/2021 3:23 PM EST Magda 12/30/2019 documented in this encounter Plan of Treatment Not on file documented as of this encounter Visit Diagnoses Not on filedocumented in this encounter Care Teams Pattern Attendant Relationship Specialty Start Date End Date Daphne Almanza MD [address] [place] [phone] PCP - General Internal Medicine 07/31/15 Daphne Almanza MD [address] [place] [address] 07/29/15 documented as of this encounter
--- OUTSIDE RECORDS SUMMARY | 2024-05-01 09:56 | XMS_ITS | Encounter Summary ---
Author Organization [facility] Address [address] [place] [address] Care Team Providers Care Filler Shredder Machine Name Role Phone Daphne Almanza MD Primary Care Provider [phone] Daphne Almanza MD Unavailable [phone] Encounter Details Date Type Department Care Team Description 05/31/2022 Hospital [facility] [address] [place] [address] [address] [place] [phone] [facility] Social History Tobacco Use Types Packs/Day Years [...] suspected to have Coronavirus/COVID-19? No / Unsure 05/30/2022 2:25 PM EST documented as of this encounter Plan of Treatment Not on file documented as of this encounter Procedures Procedure Name Priority Date/Time Associated Diagnosis Comments OUTSIDE PLAIN FILM Routine 05/31/2022 OUTSIDE LAB Routine 05/31/2022 OUTSIDE LAB Routine 05/31/2022 OUTSIDE LAB Routine 05/31/2022 documented in this encounter Results * OUTSIDE PLAIN FILM (05/31/2022) Provider Default RADIOLOGY * OUTSIDE LAB (05/31/2022) Provider Default LAB * OUTSIDE LAB (05/31/2022) Provider Default LAB * OUTSIDE LAB (05/31/2022) Provider Default LAB documented in this encounter Visit Diagnoses Not on filedocumented in this encounter Care Teams Filler Shredder Machine Relationship Specialty Start Date End Date Daphne Almanza MD [address] [place] [phone] PCP - General Internal Medicine 07/31/15 Daphne Almanza MD [address] [place] [address] 07/29/15 documented as of this encounter
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
--- OUTSIDE RECORDS SUMMARY | 2024-05-01 09:56 | XMS_ITS | Encounter Summary ---
Author Organization [facility] Address [address] [place] [address] Care Team Providers Care Subway Train Driver Name Role Phone Daphne Almanza MD Primary Care Provider [phone] Daphne Almanza MD Unavailable [phone] Encounter Details Date Type Department Care Team Description 02/09/2021 Release of Information Medical Records [address] [place] [address] Abstract, Provider Social History Tobacco Use Types [...] have Coronavirus / COVID-19? No / Unsure 02/05/2021 3:30 PM EST documented as of this encounter Plan of Treatment Not on file documented as of this encounter Visit Diagnoses Not on filedocumented in this encounter Care Teams Subway Train Driver Relationship Specialty Start Date End Date Daphne Almanza MD [address] [place] [address] PCP - General Internal Medicine 07/31/15 Daphne Almanza MD [address] [place] [address] 07/29/15 documented as of this encounter
--- OUTSIDE RECORDS SUMMARY | 2024-05-01 09:56 | XMS_ITS | Encounter Summary ---
Author Organization [facility] Address [address] [place] [address] Care Team Providers Care Home Energy Consultant Name Role Phone Daphne Almanza MD Primary Care Provider [phone] Daphne Almanza MD Unavailable [phone] Reason for Visit * Reason Comments E-prescribe Rx Request Encounter Details Date Type Department Care Team Description 04/03/2023 Refill Gastroenterology - [place] [address] [phone] Andrew Nino PA-C [address] [address] E-prescribe Rx Request Social History Tobacco Use [...] encounter Miscellaneous Notes * Telephone Encounter - Renetta Clark M.A. - 04/04/2023 1:03 PM EST NIKKI 02/23/23 No GI f/u documented in this encounter Plan of Treatment Not on file documented as of this encounter Visit Diagnoses Not on filedocumented in this encounter Care Teams Home Energy Consultant Relationship Specialty Start Date End Date Daphne Almanza MD [address] [place] [phone] PCP - General Internal Medicine 07/31/15 Daphne Almanza MD [address] [place] [address] 07/29/15 documented as of this encounter
--- OUTSIDE RECORDS SUMMARY | 2024-05-01 09:56 | XMS_ITS | Encounter Summary ---
Author Organization [facility] Address [address] [place] [address] Care Team Providers Care Vision Specialist Name Role Phone Daphne Almanza MD Primary Care Provider [phone] Daphne Almanza MD Unavailable [phone] Reason for Visit * Reason Onset Date Comments Medication 06/22/2021 Encounter Details Date Type Department Care Team Description 06/22/2021 Refill Gastroenterology - [place] 175 [facility] [address] [place] [phone] Pavan Ozuna MD [address] [facility] [address] [place] [address] Medication Social History Tobacco Use Types Packs/Day Years [...] on filedocumented in this encounter Care Teams Vision Specialist Relationship Specialty Start Date End Date Daphne Almanza MD [address] [place] [address] PCP - General Internal Medicine 07/31/15 Daphne Almanza MD [address] [place] [address] 07/29/15 documented as of this encounter
--- OUTSIDE RECORDS SUMMARY | 2024-05-01 09:56 | XMS_ITS | Encounter Summary ---
Author Organization [facility] Address [address] [place] [address] Care Team Providers Care Drafter (Cad) Electronic Name Role Phone Daphne Almanza MD Primary Care Provider [phone] Daphne Almanza MD Unavailable [phone] Encounter Details Date Type Department Care Team Description 06/02/2023 Cinder Pitman Report Medical Records [address] [place] [address] Victor Hugo Mckeon PA Social History Tobacco [...] on filedocumented in this encounter Care Teams Drafter (Cad) Electronic Relationship Specialty Start Date End Date Daphne Almanza MD [address] [place] [address] [phone] PCP - General Internal Medicine 07/31/15 Daphne Almanza MD [address] [place] [address] 07/29/15 documented as of this encounter
--- OUTSIDE RECORDS SUMMARY | 2024-05-01 09:56 | XMS_ITS | Encounter Summary ---
Author Organization [facility] Address [address] [place] [address] Care Team Providers Care Sheep Sorter Name Role Phone Daphne Almanza MD Primary Care Provider [phone] Daphne Almanza MD Unavailable [phone] Encounter Details Date Type Department Care Team Description 02/24/2021 Comic Artist Report Medical Records [address] [place] [phone] Abstract, Provider Social History Tobacco Use Types [...] have Coronavirus / COVID-19? No / Unsure 02/23/2021 3:13 PM EST documented as of this encounter Plan of Treatment Not on file documented as of this encounter Visit Diagnoses Not on filedocumented in this encounter Care Teams Sheep Sorter Relationship Specialty Start Date End Date Daphne Almanza MD [address] [place] [address] PCP - General Internal Medicine 07/31/15 Daphne Almanza MD [address] [place] [address] 07/29/15 documented as of this encounter
--- OUTSIDE RECORDS SUMMARY | 2024-05-01 09:56 | XMS_ITS | Encounter Summary ---
Author Organization [facility] Address [address] [place] [address] Care Team Providers Care Poiser Balance Name Role Phone Daphne Almanza MD Primary Care Provider [phone] Daphne Almanza MD Unavailable [phone] Encounter Details Date Type Department Care Team Description 12/14/2018 Release of Information Medical Records [address] [place] [address] Abstract, Provider Social History Tobacco Use Types [...] on filedocumented in this encounter Care Teams Poiser Balance Relationship Specialty Start Date End Date Daphne Almanza MD [address] [place] [address] [phone] PCP - General Internal Medicine 07/31/15 Dapnhe Almanza MD [address] [place] [address] 07/29/15 documented as of this encounter
--- OUTSIDE RECORDS SUMMARY | 2024-05-01 09:56 | XMS_ITS | Encounter Summary ---
Author Organization [facility] Address [address] [place] [address] Care Team Providers Care Switching Clerk Name Role Phone Daphne Almanza MD Primary Care Provider [phone] Reason for Referral * Imaging (Routine) - Closed Specialty Diagnoses / Procedures Referred By Radha olsen Referred To Contact Radiology Diagnoses Diverticulosis H/O diverticulitis of colon LLQ pain Elevated liver enzymes Gastroesophageal reflux disease without esophagitis Rectal irritation Procedures CT Abdomen Pelvis w Contrast Andrew Nino PA [address] [address] [facility] [address] [place] [address] Referral ID Status Reason Start Date Expiration Date Visits Re quested Visits Authorized [id number] Closed 04/19/2024 06/18/2024 1 1 Reason for Visit * Imaging (Routine) - Closed Specialty Diagnoses / Procedures Referred By Radha olsen Referred To Contact Radiology Diagnoses Diverticulosis H/O diverticulitis of colon LLQ pain Elevated liver enzymes Gastroesophageal reflux disease without esophagitis Rectal irritation Procedures CT Abdomen Pelvis w Contrast Andrew Nino PA [address] [address] [facility] [address] [place] [address] Referral ID Status Reason Start Date Expiration Date Visits Re quested Visits Authorized [id number] Closed 04/19/2024 06/18/2024 1 1 Encounter Details Date Type Department Care Team (Latest Contact Info) Description 04/26/2024 4:16 PM EST - 04/26/2024 11:59 PM EST Hospital Encounter [facility] [address] [place] [address] Diverticulosis; H/O diverticulitis of colon; LLQ pain; Elevated liver enzymes; Gastroesophageal reflux disease without esophagitis; Rectal irritation Discharge Disposition: Home or Self Care Social History Tobacco Use Types Packs/Day Years Used Date Smoking Tobacco: Former Cigarettes Smokeless Tobacco: Never Alcohol Use Standard Drinks/Week Comments No 0 (1 standard drink = 0.6 oz pur e alcohol) Housing Instability Answer Date Recorde d Are you worried that in the next 2 months you may not have stable housing? No 04/15/2024 Food Access & Nutrition Answer Date Rec orded Do you have access to a vari ety of food including fruits and vegetables? Yes 04/15/2024 Health Literacy Answer Date Recorded How often do you need to hav e someone help you when you read instructions, pamphlets, or other written material from your doctor or pharmacy? Never 04/15/2024 Caregiver: How often do you need to have someone help you when you read instructions, pamphlets, or other written material from your doctor or pharmacy? Not on file 04/15/2024 Financial Risk Answer Date Recorded How hard is it for you to pa y for the very basics like food, housing, medical care, and air conditioning / heating? Not very hard 04/15/2024 Transportation Answer Date Recorded Has the lack of transportati on kept you from meetings, work, or from getting things needed for daily living? No Has the lack of transportati on kept you from medical appointments or from getting medications? No 04/15/2024 Social Isolation Answer Date Recorded How often do you feel lonely or isolated from th ose around you? Never 04/15/2024 Food Risk Answer Date Recorded Within the past 12 months we worried whether our food would run out before we got money to buy more. Never true 04/15/2024 Within the past 12 months th e food we bought just didn't last and we didn't have money to get more. Never true 04/15/2024 Dependent Care Answer Date Recorded Do you need help finding or paying for care for your loved ones. For example, child support case officer or elderly care for an older adult? No 04/15/2024 Education Answer Date Recorded Do you think completing more education or training, like finishing a GED, going to college, or learning a trade, would be helpful for you? No 04/15/2024 Employment and Income Answer Date Recor ded During the last four weeks, have you been actively looking for work? No 04/15/2024 Living Situation Answer Date Recorded What is your living situation? 0 04/15/2024 Sex and Gender Information Value Date Recorded Sex Assigned at Female 04/22/2024 11:24 AM EST Gender Identity Female 04/22/2024 11:24 AM EST Sexual Orientation Straight 04/22/2024 11 :24 AM EST Job Start Date Occupation Industry Not on file Not on file Not on file documented as of this encounter Medications at Time of Discharge Medication Sig Dispensed Refills Start Date End Date acetaminophen (TYLENOL 8 HOUR) 650 mg 8 hr tablet TOME CHARLES TABLETA DOS VECKOLE AL AYAZ 06/16/2023 albuterol HFA (ProAir HFA) 90 mcg/actuation inhaler Take 2 Puffs by mouth every 4 hours as needed for Cough or Wheezing. 2 Puffs every 4 hours as needed 02/06/2023 azelastine (ASTELIN) 137 mcg (0.1 %) nasal spray INSTILL 2 SPRAYS INTO EACH NOSTRIL TWICE A DAY DIRECTED 30 mL 5 02/28/2024 busPIRone (BUSPAR) 30 mg tablet TOME CHARLES TABLETA DOS VECES AL D A 11/19/2022 eszopiclone (LUNESTA) 2 mg tablet JENNYFER LOONEY 11/14/2022 famotidine (PEPCID) 20 mg tablet Take 1 Tablet by mouth 2 times daily as needed for Heartburn. 02/23/2023 famotidine (Pepcid) 20 mg tablet Take 1 tablet (20 mg total) by mouth 2 (two) times a day if needed for heartburn. 60 each 11 04/12/2024 04/12/2025 fexofenadine (LUANA) 180 mg tablet Take 1 tablet by mouth daily. 02/23/2021 fluticasone propionate (FLONASE) 50 mcg/actuation nasal spray INSTILL 1 SPRAY INTO EACH NOSTRIL TWICE A DAY. 48 mL 5 02/28/2024 gabapentin (NEURONTIN) 100 mg capsule PLEASE SEE ATTACHED FOR DETAILED DIRECTIONS 12/07/2021 hydrocortisone (Preparation H Hydrocortisone) 1 % topical cream Apply topically 2 (two) times a day. 30 g 11 04/12/2024 04/12/2025 LORazepam (ATIVAN) 0.5 mg tablet JENNYFER LOONEY 12/28/2022 pantoprazole (PROTONIX) 40 mg EC tablet Take 1 tablet (40 mg total) by mouth 1 (one) time each day. Take in am on empty stomach wait 30 mins and then eat to activate the medication 30 each 04/12/2024 bhxkjtzoc-rwktoaff-urw cr-w.pet (Preparation H Maximum Strength) 0.25-1 % cream Insert 0.0385 each into the rectum 2 (two) times a day if needed (rectal irritation). 60 g 6 04/12/2024 risperiDONE (RisperDAL) 2 mg tablet JENNYFER LOONEY 07/22/2015 venlafaxine XR (EFFEXOR-XR) 150 mg 24 hr capsule 150 mg. 1 Tab daily 07/22/2015 dicyclomine (BENTYL) 20 mg tablet Take 1 tablet (20 mg total) by mouth 2 (two) times a day for 10 days. 20 tablet 04/18/2024 04/28/2024 documented as of this encounter Discharge Disposition Disposition Code Departure Means Destination Home or Self Care documented in this encounter Plan of Treatment Upcoming Encounters Date Type Department Care Team (Late st Contact Info) Description 05/22/2024 11:00 AM EST Office Visit Gastroenterology - [place] 175 [facility] 175 [facility] [address] [place] [id number] Andrew Nino PA [address] [facility] [address] [place] [address] 06/03/2024 2:10 PM EDT Appointment Radiology Department - [address] [phone] 07/09/2024 2:00 PM EDT Office Visit Urogynecology [address] [phone] Kym Christine MD 580 [facility] [address] [place] [address] 07/18/2024 3:00 PM EDT Office Visit Adult Medicine [address] [phone] Daphne Almanza MD [address] [place] [address] documented as of this encounter Procedures Procedure Name Priority Date/Time Associated Diagnosis Comments CT ABDOMEN PELVIS W CONTRAST Routine 04/26/2024 4:58 PM EST Diverticulosis H/O diverticulitis of colon LLQ pain Elevated liver enzymes Gastroesophageal reflux disease without esophagitis Rectal irritation documented in this encounter Results * CT Abdomen Pelvis w Contrast (04/26/2024 4:58 PM EST) Anatomical Region Laterality Modality Body Computed Tomogra phy 04/26/2024 5:1 1 PM EST Impressions 04/26/2024 5:[address] correlate for left lower quadrant pain. Incidental findings as above. -------- FINAL REPORT -------- Dictated By: Evon Sargent Dictated Date: 04/26/2024 17:11 ET Assigned Physician: Evon Sargent Reviewed and Electronically Signed By: Evon Sargent Signed Date: 04/26/2024 17:15 ET Workstation ID: [id number] Transcribed By: Self Edit Transcribed Date: 04/26/2024 17:11 ET Narrative 04/26/2024 5:15 PM EST PROCEDURE: CT ABDOMEN/PELVIS WITH CONTRAST INDICATION: llq pain,, h/o diverticulitis and diverticulosis TECHNIQUE: CT of the abdomen and pelvis following the intravenous administration of 90cc Isovue 370. Multiplanar reformats. The examination was performed utilizing dose reduction techniques. Total DLP Dose COMPARISON: ??No priors available. FINDINGS: ?? LOWER THORAX: Calcified granuloma right lung base. ??Small hiatal hernia. HEPATOBILIARY: No focal liver lesions. No cholelithiasis or biliary duct dilatation. SPLEEN: No focal lesion. PANCREAS: No focal mass or ductal dilatation. ADRENALS: No nodules. KIDNEYS/URETERS: No hydronephrosis, stones, or solid mass. PELVIC ORGANS/BLADDER: Status post hysterectomy. ??No pelvic mass. ??Bladder grossly unremarkable. PERITONEUM / RETROPERITONEUM: No ascites or free air. No retroperitoneal lymphadenopathy. VESSELS: Scattered atherosclerotic calcifications throughout the aorta and its major branches. No aneurysm. GI TRACT: No bowel distention or wall thickening. Normal appendix. BONES AND SOFT TISSUES: Minimal degenerative changes seen throughout the bones. Soft tissues are unremarkable. Procedure Note Evon Sargent MD - 04/26/2024 PROCEDURE: CT ABDOMEN/PELVIS WITH CONTRAST INDICATION: llq pain,, h/o diverticulitis and diverticulosis TECHNIQUE: CT of the abdomen and pelvis following the intravenousadministration of 90cc Isovue 370. Multiplanar reformats. The examinationwas performed utilizing dose reduction techniques. Total DLP Dose COMPARISON: No priors available. FINDINGS: LOWER THORAX: Calcified granuloma right lung base. Small hiatal hernia. HEPATOBILIARY: No focal liver lesions. No cholelithiasis or biliary ductdilatation. SPLEEN: No focal lesion. PANCREAS: No focal mass or ductal dilatation. ADRENALS: No nodules. KIDNEYS/URETERS: No hydronephrosis, stones, or solid mass. PELVIC ORGANS/BLADDER: Status post hysterectomy. No pelvic mass. Bladdergrossly unremarkable. PERITONEUM / RETROPERITONEUM: No ascites or free air. No retroperitoneallymphadenopathy. VESSELS: Scattered atherosclerotic calcifications throughout the aorta andits major branches. No aneurysm. GI TRACT: No bowel distention or wall thickening. Normal appendix. BONES AND SOFT TISSUES: Minimal degenerative changes seen throughout thebones. Soft tissues are unremarkable. IMPRESSION: No CT correlate for left lower quadrant pain. Incidental findings as above. -------- FINAL REPORT -------- Dictated By: Evon Sargent Dictated Date: 04/26/2024 17:11 ET Assigned Physician: Evon Sargent Reviewed and Electronically Signed By: Evon Sargent Signed Date: 04/26/2024 17:15 ET Workstation ID: [id number] Transcribed By: Self Edit Transcribed Date: 04/26/2024 17:11 ET Andrew Springer Mica CORNELIUS IMMarah CT PROCEDURES documented in this encounter Visit Diagnoses Diagnosis Diverticulosis Diverticulosis of colon (without mention of hemorrhage) H/O diverticulitis of colon LLQ pain Abdominal pain, left lower quadrant Elevated liver enzymes Other nonspecific abnormal serum enzyme levels Gastroesophageal reflux disease without esophagitis Esophageal reflux Rectal irritation Other specified disorder of rectum and anus Encounter for screening mammogram for breast cancer documented in this encounter Administered Medications Inactive Administered Medications - up to 3 most recent administrations Medication Order MAR Action Action Date Dose Rate Site barium sulfate (READI-CAT 2) 2 % (w/v) suspension 450 mL 450 mL, oral, Once in imaging, Starting on Mon04/26/24 at 1649, For 1 dose Given 04/26/2024 4:50 PM EST 450 mL iopamidoL (ISOVUE-370) 370 mg iodine /mL (76 %) injection 90 mL 90 mL, intravenous, Once in imaging, Starting on Mon04/26/24 at 1648, For 1 dose Given 04/26/2024 4:49 PM EST 90 mL sodium chloride 0.9 % flush 10 mL 10 mL, intravenous, Once, On Mon04/26/24 at 1715, For 1 dose Given 04/26/2024 4:50 PM EST 10 mL documented in this encounter Additional Health Concerns Assessment Noted Time PHQ-9 Depression Total Score: 1 04/15/19 2:51 PM EST documented as of this encounter Care Teams Switching Clerk Relationship Specialty Start Date End Date Daphne Almanza MD [address] [place] [id number] PCP - General Internal Medicine 11/30/13 documented as of this encounter
--- OUTSIDE RECORDS SUMMARY | 2024-05-01 09:56 | XMS_ITS | Encounter Summary ---
Author Organization [facility] Address [address] [place] [address] Care Team Providers Care Tree Inspector Name Role Phone Daphne Almanza MD Primary Care Provider [phone] Daphne Almanza MD Unavailable [phone] Reason for Visit * Reason Onset Date Comments refill request 11/17/2022 Encounter Details Date Type Department Care Team Description 11/17/2022 Refill Gastroenterology - [place] [address] [phone] Andrew Nino PA-C [address] [address] refill request Social History Tobacco Use Types Packs/Day Years [...] suspected to have Coronavirus/COVID-19? No / Unsure 11/15/2022 8:16 AM EDT documented as of this encounter Miscellaneous Notes * Telephone Encounter - Denia kwon Best - 11/22/2022 3:29 PM EDT Patient calling checking on status, please advise * Telephone Encounter - Chely He - 11/17/2022 3:42 PM EDT Magda 07/20/21 Nov 01/04/23 documented in this encounter Plan of Treatment Not on file documented as of this encounter Visit Diagnoses Not on filedocumented in this encounter Care Teams Tree Inspector Relationship Specialty Start Date End Date Daphne Almanza MD [address] [place] [id number] PCP - General Internal Medicine 07/31/15 Daphne Almanza MD [address] [place] [phone] 07/29/15 documented as of this encounter
--- OUTSIDE RECORDS SUMMARY | 2024-05-01 09:56 | XMS_ITS | Encounter Summary ---
Author Organization [facility] Address [address] [place] [address] Care Team Providers Care Ship Joiner Name Role Phone Daphne Almanza MD Primary Care Provider [phone] Daphne Almanza MD Unavailable [phone] Reason for Visit * Reason Onset Date Comments Provider Call Back 04/05/2021 Encounter Details Date Type Department Care Team Description 04/05/2021 Telephone Gastroenterology - [place] [address] [phone] Andrew Nino PA-C [address] [address] Provider Call Back Social History Tobacco Use Types Packs/Day Years [...] encounter Miscellaneous Notes * Telephone Encounter - Jennyfer Guaman - 04/06/2021 10:31 AM EST Records in your bin for review. * Telephone Encounter - Jennyfer Guaman - 04/06/2021 8:45 AM EST Patient has been booked for 04/13/2021 at 11:30am. Patient is aware of appointment. * Telephone Encounter - Andrew Nino PA-C - 04/05/2021 4:29 PM EST There are some slots that are open, even telehealth visits if need be. We can also use the 1130 slot as well so patient can be seen sooner than May * Telephone Encounter - Jennyfer Guaman - 04/05/2021 3:47 PM EST Spoke to the patient who states that she has been having stomach pains for a week. She has been taking her Pantoprazole but feels it's not working. She went to [facility] yesterday but they didn't find anything wrong, even after doing different tests. I have faxed a request to them for those records. She says every time she eats, she has to run to the bathroom with diarrhea. Please advise, thanks. * Telephone Encounter - Sharmila Patino - 04/05/2021 3:14 PM EST Patient is calling because she has been having a lot of stomach pain. I offered next available which is 06/01 patient cant wait that long please call [phone] documented in this encounter Plan of Treatment Not on file documented as of this encounter Visit Diagnoses Not on filedocumented in this encounter Care Teams Ship Joiner Relationship Specialty Start Date End Date Daphne Almanza MD [address] [place] [id number] PCP - General Internal Medicine 07/31/15 Daphne Almanza MD [address] [place] [address] 07/29/15 documented as of this encounter
--- OUTSIDE RECORDS SUMMARY | 2024-05-01 09:57 | XMS_ITS | Encounter Summary ---
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 For example, childcare director or elderly care for an older adult? [...] on file documented as of this encounter Last Filed Vital Signs Vital Sign Reading Time Taken Comments Blood Pressure 154/88 04/18/2024 7:31 AM EST Pulse 73 04/18/2024 7:31 AM EST Temperature 36.8 ??C (98.3 ??F) 04/18/2024 7:31 AM ES T Respiratory Rate 18 04/18/2024 7:31 AM EST Oxygen Saturation 100% 04/18/2024 7:31 AM EST Inhaled Oxygen Concentration - - Weight 70.3 kg (155 lb) 04/17/2024 8:54 PM EST Height 165.1 cm (5' 5 ) 04/17/2024 8:54 PM EST Body Mass Index 25.79 04/17/2024 8:54 PM EST documented in this encounter Discharge Instructions * Discharge Instructions* ADRYAN De La Vega - 04/18/2024 8:09 AM EST Please follow-up with INSURANCE SPECIALIST as planned at the end of March. Tramadol for pain. This may cause drowsiness. Please use Bentyl you can use 20 mg twice a day to see if this improves your symptoms, and follow-up with gastroenterology With the workup you have had prior wondering whether you have irritable bowel syndrome but you willneed further workup and diagnosis by specialist on outpatient basis. documented in this encounter Medications at Time of Discharge Medication Sig Dispensed Refills Start Date End Date acetaminophen (TYLENOL 8 HOUR) 650 mg 8 hr tablet TOME CHARLES TABLETA LUNA AL AYAZ 06/16/2023 albuterol HFA (ProAir HFA) [...] eszopiclone (LUNESTA) 2 mg tablet JENNYFER LOONEY GARRISON 11/14/2022 famotidine (PEPCID) 20 mg tablet Take [...] to activate the medication 30 each 04/12/2024 zhfaylzsu-pgqtbdqc-tmh cr-w.pet (Preparation H Maximum Strength) 0.25-1 % cream Insert 0.0385 each into the rectum 2 (two) times a day if needed (rectal irritation). 60 g 6 04/12/2024 risperiDONE (RisperDAL) 2 mg tablet JENNYFER LOONEY 07/22/2015 venlafaxine XR (EFFEXOR-XR) 150 mg 24 hr capsule 150 mg. 1 Tab daily 07/22/2015 ciprofloxacin (CIPRO) 500 mg tablet Take 1 tablet (500 mg total) by mouth 2 (two) times a day for 14 days. 28 each 04/12/2024 04/26/2024 dicyclomine (BENTYL) 20 mg tablet Take 1 tablet (20 mg total) by mouth 2 (two) times a day for 10 days. 20 tablet 04/18/2024 04/28/2024 metroNIDAZOLE (FLAGYL) 500 mg tablet Take 1 tablet (500 mg total) by mouth 2 (two) times a day for 14 days. Do not use mouth wash or consume alcohol until 48 hours after last dose 28 each 04/12/2024 04/26/2024 traMADoL (ULTRAM) 50 mg tablet Take 1 tablet (50 mg total) by mouth every 6 (six) hours if needed for severe pain for up to 3 days. Max Daily Amount: 200 mg 12 tablet 04/18/2024 04/21/2024 documented as of this encounter Ordered Prescriptions Prescription Sig Dispensed Refills Start Date End Da te traMADoL (ULTRAM) 50 mg tablet Take 1 tablet (50 mg total) by mouth every 6 (six) hours if needed for severe pain for up to 3 days. Max Daily Amount: 200 mg 12 tablet 04/18/2024 04/21/2024 dicyclomine (BENTYL) 20 mg tablet Take 1 tablet (20 mg total) by mouth 2 (two) times a day for 10 days. 20 tablet 04/18/2024 04/28/2024 documented in this encounter Discharge Disposition Disposition Code Departure Means Destination Comment s Home or Self Care documented in this encounter Progress Notes * Rosalind Farnsworth RN - 04/17/2024 8:55 PM EST Pt seen in [facility] er x 2 and [facility] and pcp also [facility] for rectal pain no bleeding. Ptdx here diverticulosis elevated liver enzymes gastro esophageal reflux . Rectal pain continues . Ptis waiting an appointment with oncology and has an appointment with obgyn for same pain * ADRYAN De La Vega - 04/17/2024 8:27 PM EST Emergency Medicine Note Patient Name: Nila Banks Initial Evaluation: 04/17/2024 : 1960 Patient's PCP: Daphne Almanza MD Emergency Physician: ADRYAN De La Vega History of Present Illness Chief Complaint: Chief Complaint Patient presents with Fecal Impaction Rectal pain 2 months seen by pcp seen at [facility] here 2 timesf HPI: From EMR: Patient presents to the office today for evaluation of pelvic pain/pressure x weeks. She is primarily Armenian-speaking. 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 She was seen at [facility] ER on 03/23/2024 and had follow-up with my colleague on 04/02/2024. CBC & BMP unremarkable; elevated AST/ALT at 99/309 and alkaline phosphatase at 175; lipase 63. Negative urine culture. CT abdomen/pelvis with contrast suggestive of uncomplicated sigmoid diverticulitis. Patient was prescribed Augmentin 875-125 mg BID x 7 days. During ER follow-up with colleague she was referred to gynecology. Has appointment on 04/25/2024. She then presented to [facility] on 04/05/2024 endorsing 1 month of suprapubic/bladder pain. Reported being seen at urgent care center 3 times for the same concern as well. Was prescribed numerous courses of antibiotics for suspected UTI. It is documented that patient was also seen at [facility] on 03/10/2024 for the same concern. Gonorrhea and Chlamydia testing were negative. Vaginitis panel was negative. Was prescribed Pyridium in addition to NSAIDs. CBC without leukocytosis or anemia. GFR was reduced at 49. Creatinine normal at 1.12. ALT 32. AST normal. Urinalysis with trace hematuria. Was referred to urology for consideration of cystoscopy. Does not have appointment with urology. Needs referral from PCP. She then presented to [facility] on 04/11/2024 for continued symptoms. CBC without leukocytosis. Normal creatinine. GFR was improved at 79. Normal lipase. AST normal. ALT 60. Urinalysis with trace hematuria. Pelvic ultrasound unremarkable. Was advised to follow-up with PCP and consider referral to urogynecology. She was seen with GI on 04/12/2024 for follow-up regarding diverticulitis. Was also reporting rectalburning. Was ordered for repeat lab work and repeat CT of abdomen and pelvis. She was ordered for Cipro, metronidazole, pantoprazole, famotidine, Preparation H. She continues to have lower abdominal discomfort/pressure. She presents to [facility] ED today with continued symptoms. She is currently taking Cipro and Flagyl. This was prescribed by Andrew Nino from GI. She reports having an appointment with oncology on 04/26. She complains of abdominal discomfort, vaginal burning and rectal burning. She reports pretty regular bowel movements without blood. No nausea or vomiting. No associated fevers. ROS: GENERAL: No fever, no chills, no acute distress OPHTHALMOLOGY: No vision changes, no redness, or discharge ENT: No sore throat , no nosebleed CARDIOVASCULAR: No chest pain, no peripheral edema RESPIRATORY: No dyspnea, no sputum production, and no cough MUSCULOSKELETAL: No myalgias, no back pain, and no neck pain. GI: + Abdominal pain, no nausea, no vomiting, no diarrhea. No black stool, bright red blood per rectum, or constipation. GENITOURINARY: No dysuria, no urgency, no frequency NEUROLOGY: No paresthesias, no weakness, No headache PSYCHIATRIC: No depression, no suicidality, or intent of self-harm DERMATOLOGY: No rash no pruritus IMMUNOLOGY: No immunocompromise HEMATOLOGY: No bleeding, no bruising Previous History Past Medical History: Diagnosis Date Abdominal pain DX:Abdominal pain Anxiety 08/14/2015 DX:Anxiety Asthma 08/14/2015 DX:Asthma Choking DX:Choking Constipation DX:Constipation COVID-19 virus infection 11/30/2021 DX:COVID-19 virus infection; COMMENT: 8.28.22 Depressive disorder DX:Depressive disorder Diverticulosis DX:Diverticulosis GERD (gastroesophageal reflux disease) 08/14/2015 DX:GERD (gastroesophageal reflux disease) Globus sensation DX:Globus sensation Hiatal hernia DX:Hiatal hernia Hyperlipidemia DX:Hyperlipidemia Lower abdominal pain DX:Lower abdominal pain Postnasal drip DX:Postnasal drip Rectal pain DX:Rectal pain Seasonal allergies DX:Seasonal allergies Thyroid nodule 05/09/2017 DX:Thyroid nodule Past Surgical History: Procedure Laterality Date CARPAL TUNNEL RELEASE Left PROCEDURE: HISTORICAL CARPAL TUNNEL REL COLONOSCOPY 04/20/2012 PROCEDURE: HISTORICAL COLONOSCOPY; COMMENT: [facility] - normal ESOPHAGOGASTRODUODENOSCOPY 08/20/2015 PROCEDURE: [place] ESOPHAGOGASTRODUODENOSCOPY TRANSORAL DIAGNOSTIC; COMMENT: Dr. De La Rosa - small H/H o/w normal. ESOPHAGOGASTRODUODENOSCOPY PROCEDURE: [place] EGD TRANSORAL BIOPSY SINGLE/MULTIPLE; COMMENT: 08/[address] Ozuna HYSTERECTOMY PROCEDURE: HISTORICAL HYSTERECTOMY; COMMENT: fibroids and menorrhagia TUBAL LIGATION PROCEDURE: HISTORICAL TUBAL LIGATION Social History Tobacco Use Smoking status: Former Current packs/day: 0.25 Types: Cigarettes Smokeless tobacco: Never Substance Use Topics Alcohol use: No Drug use: No Family History Problem Relation Name Age of Onset Diabetes Mother stroke s/p brain aneurysm (age 78), HTN, CAD, cataract, glaucoma Arthritis Mother Alcohol abuse Father ?pancreatic issues Heart attack Brother 58.00 s/p stenting Diabetes Sister HLD Colon cancer Maternal Grandfather 82.00 and prostate cancer Heart attack Maternal Grandmother 76.00 diabetes, HLD Alcohol abuse Paternal Grandfather Suicide Attempts Paternal Grandmother Breast cancer Aunt maternal 51.00 uterine cancer Breast cancer Aunt maternal Diabetes Brother HLD x 3, HTN x 4 (total 6 brothers) Breast cancer Aunt maternal 60.00 Breast cancer Aunt maternal Diabetes Uncle maternal HLD Blindness Neg Hx Macular degeneration Neg Hx Strabismus Neg Hx is allergic to aspirin and pineapple. No current facility-administered medications on file prior to encounter. Current Outpatient Medications on File Prior to Encounter Medication Sig Dispense Refill acetaminophen (TYLENOL 8 HOUR) 650 mg 8 hr tablet TOME CHARLES TABLETA DOS VECES AL AYAZ albuterol HFA (ProAir HFA) 90 mcg/actuation inhaler Take 2 Puffs by mouth every 4 hours as needed for Cough or Wheezing. 2 Puffs every 4 hours as needed azelastine (ASTELIN) 137 mcg (0.1 %) nasal spray INSTILL 2 SPRAYS INTO EACH NOSTRIL TWICE A DAY DIRECTED 30 mL 5 busPIRone (BUSPAR) 30 mg tablet TOME CHARLES TABLETA DOS VECES AL D A ciprofloxacin (CIPRO) 500 mg tablet Take 1 tablet (500 mg total) by mouth 2 (two) times a day for 14 days. 28 each 0 eszopiclone (LUNESTA) 2 mg tablet JENNYFER LOONEY famotidine (PEPCID) 20 mg tablet Take 1 Tablet by mouth 2 times daily as needed for Heartburn. famotidine (Pepcid) 20 mg tablet Take 1 tablet (20 mg total) by mouth 2 (two) times a day if neededfor heartburn. 60 each 11 fexofenadine (LUANA) 180 mg tablet Take 1 tablet by mouth daily. fluticasone propionate (FLONASE) 50 mcg/actuation nasal spray INSTILL 1 SPRAY INTO EACH NOSTRIL TWICE A DAY. 48 mL 5 gabapentin (NEURONTIN) 100 mg capsule PLEASE SEE ATTACHED FOR DETAILED DIRECTIONS hydrocortisone (Preparation H Hydrocortisone) 1 % topical cream Apply topically 2 (two) times a day. 30 g 11 LORazepam (ATIVAN) 0.5 mg tablet JENNYFER LOONEY metroNIDAZOLE (FLAGYL) 500 mg tablet Take 1 tablet (500 mg total) by mouth 2 (two) times a day for 14 days. Do not use mouth wash or consume alcohol until 48 hours after last dose 28 each 0 pantoprazole (PROTONIX) 40 mg EC tablet Take 1 tablet (40 mg total) by mouth 1 (one) time each day.Take in am on empty stomach wait 30 mins and then eat to activate the medication 30 each 11 njxcakpfj-ttawjyza-lqsaz-w.pet (Preparation H Maximum Strength) 0.25-1 % cream Insert 0.0385 each into the rectum 2 (two) times a day if needed (rectal irritation). 60 g 6 risperiDONE (RisperDAL) 2 mg tablet JENNYFER LOONEY venlafaxine XR (EFFEXOR-XR) 150 mg 24 hr capsule 150 mg. 1 Tab daily [DISCONTINUED] pantoprazole (PROTONIX) 40 mg EC tablet TAKE 1 TABLET TWICE A DAY BEFORE MEALS ON EMPTY STOMACH WAIT 30 MINS THEN EAT TO ACTIVATE MEDICATION Physical Exam ED Triage Vitals Temp Heart Rate Resp BP 04/17/24205304/17/24205304/17/24205304/17/242053 36.7 ??C (98.1 ??F) 99 16 (!) 157/90 SpO2 Temp Source Heart Rate Source Patient Position 04/17/24205304/17/24205304/18/2421004/18/24210 99 % Oral Monitor Sitting BP Location FiO2 (%) 04/18/24210 -- Left arm General: Well-appearing, well nourished, in no acute distress HEENT: PERRL, EOMI, external ears and nose appear unremarkable, airway is patent Neck: Supple, full range of motion Chest: Clear to auscultation; no evidence of respiratory distress Circulatory: RRR, extremities well perfused Abdomen: Mild pain to palpation to the epigastrium. No rebound or guarding. Positive bowel sounds. Soft, mildly distended. Rectal exam without palpable abnormality in the rectal vault, heme-negative. : No vaginal masses, lesions, discharge appreciated. No labial irritation. Extremities: Normal ROM, No edema Skin: Warm and dry Neuro: Alert and oriented, no focal deficits Results Labs Reviewed COMPREHENSIVE METABOLIC PANEL - Abnormal Result Value Sodium 139 Potassium 4.8 Chloride 107 CO2 30 Anion Gap 2 (*) Glucose 103 (*) BUN 17 Creatinine 0.97 eGFR 66 BUN/Creatinine Ratio 17.5 Calcium 9.6 AST (SGOT) 28 ALT (SGPT) 40 Alkaline Phosphatase 94 Total Protein 7.9 Albumin 4.0 Total Bilirubin 0.3 CBC WITH AUTO DIFFERENTIAL - Abnormal WBC 9.4 RBC 4.30 Hemoglobin 12.9 Hematocrit 39.4 MCV 92.5 MCH 30.3 MCHC 32.7 RDW 13.7 Platelets 255 MPV 10.9 NRBC 0.0 NRBC Absolute 0.00 Neutrophils Relative 73.0 Lymphocytes Relative 17.2 Monocytes Relative 7.1 Eosinophils Relative 1.6 Basophils Relative 0.7 Immature Granulocytes Relative 0.4 Neutrophils Absolute 6.83 Lymphocytes Absolute 1.61 Monocytes Absolute 0.66 Eosinophils Absolute 0.15 Basophils Absolute 0.07 Immature Granulocytes Absolute 0.04 (*) URINALYSIS WITH REFLEX MICROSCOPIC AND CULTURE - Abnormal Specific [place] Urine 1.017 pH, Urine 6.5 Leukocytes, Urine Trace (*) Nitrite, Urine Negative Protein, Urine Negative Glucose, Urine Negative Ketones, Urine Negative Urobilinogen, Urine 0.2 Bilirubin, Urine Negative Blood, Urine Negative RBC, Urine 4.3 (*) WBC, Urine 2.3 Squamous Epithelial, Urine 17 Bacteria, Urine Negative Hyaline Casts, Urine 0.0 WET PREP, GENITAL - Normal Clue Cells, Wet Prep Negative Yeast, Wet Prep Negative Trichomonas, Wet Prep Indeterminate LIPASE - Normal Lipase 54 CHLAMYDIA TRACHOMATIS AND NEISSERIA GONORRHOEAE MOLECULAR STUDY CULTURE URINE TRICHOMONAS VAGINALIS ANTIGEN CBC AND DIFFERENTIAL Narrative: The following orders were created for panel order CBC and differential. Procedure Abnormality Status --------- ------ CBC auto differential[[id number]] Abnormal Final result Please view results for these tests on the individual orders. URINALYSIS WITH REFLEX MICROSCOPIC AND CULTURE Narrative: The following orders were created for panel order Urinalysis with reflex microscopic and culture. Procedure Abnormality Status --------- ------ Urinalysis with reflex ...[[id number]] Abnormal Final result Forrest urine culture tube[[id number]] Final result Please view results for these tests on the individual orders. Abnormal Labs Reviewed COMPREHENSIVE METABOLIC PANEL - Abnormal; Notable for the following components: Result Value Anion Gap 2 (*) Glucose 103 (*) All other components within normal limits CBC WITH AUTO DIFFERENTIAL - Abnormal; Notable for the following components: Immature Granulocytes Absolute 0.04 (*) All other components within normal limits URINALYSIS WITH REFLEX MICROSCOPIC AND CULTURE - Abnormal; Notable for the following components: Leukocytes, Urine Trace (*) RBC, Urine 4.3 (*) All other components within normal limits No orders to display I have discussed the incidental/abnormal imaging and/or lab abnormalities with the patient and haveinstructed them the need for further evaluation and workup with their primary care doctor. I have provided the patient with a paper copy of the abnormality. The laboratory results, imaging results and other diagnostic exam results were reviewed in the EMR. EKG Interpretation Critical Care Time None ? Medical Decision Making Medications - No data to display ED Course as of 04/18/24 1008 Marizol Apr 18, 2024 1005 Workup reviewed and reassuring. Wet prep is negative. Patient was discharged with a prescription for tramadol and Bentyl. Discharged in stable condition. INSURANCE SPECIALIST follow-up as planned. [JH] ED Course User Index [JH] ADRYAN De La Vega Clinical Impressions as of 04/18/24 1008 Vaginal pain Rectal pain Procedures Procedures Diagnosis 1. Vaginal pain 2. Rectal pain Disposition Discharge ED Prescriptions Medication Sig Dispense Start Date End Date Auth. Provider dicyclomine (BENTYL) 20 mg tablet Take 1 tablet (20 mg total) by mouth 2 (two) times a day for 10 days. 20 tablet 04/18/2024 04/28/2024 Ralph Menard MD traMADoL (ULTRAM) 50 mg tablet Take 1 tablet (50 mg total) by mouth every 6 (six) hours if needed for severe pain for up to 3 days. Max Daily Amount: 200 mg 12 tablet 04/18/2024 04/21/2024 ADRYAN De La Vega Physician Attestation This is a split/shared visit with Ralph Menard MD. I personally performed the medical decision making (MDM) for the care of this patient on 04/18/24 as documented below Patient evaluated, she is presenting with recurrent wide range of symptoms and has had prior diverticulitis and CTs and workup and she has follow-up with a ammonia box tender, based on the symptoms of abdominal pain and distention I am wondering whether she has irritable bowel syndrome but she of course needs this diagnosis to be made on outpatient basis but in the meantime she has been using Tylenol anti-inflammatories and I am going to recommend Bentyl as well. Otherwise patient is well-appearing, and has some generalized tenderness without rebound rigidity bowel sounds present. ADRYAN De La Vega 04/18/24 10:08 AM EST ADRYAN De La Vega PA 04/18/24 0751 ADRYAN De La Vega 04/18/24 0759 Ralph Menard MD 04/18/24 0810 ADRYAN De La Vega 04/18/24 1008 documented in this encounter Plan of Treatment Upcoming Encounters Date Type Department Care Team (Late st Contact Info) Description 05/22/2024 11:00 AM EST Office Visit Gastroenterology - [place] [address] [place] [address] Andrew Nino PA [address] [place] [address] 06/03/2024 2:10 PM EDT Appointment Radiology Department - [address] [phone] 07/09/2024 2:00 PM EDT Office Visit Urogynecology - [address] [phone] Kym Christine MD [address] [place] [address] [address] [place] [address] 07/18/2024 3:00 PM EDT Office Visit [facility] - [address] [phone] Daphne Almanza MD [address] [place] [address] documented as of this encounter Procedures Procedure Name Priority Date/Time Associated Diagnosis Comments URINALYSIS WITH REFLEX MICROSCOPIC AND CULTURE STAT 04/18/2024 8:09 AM EST FORREST URINE CULTURE TUBE STAT 04/18/2024 8:09 AM EST URINALYSIS WITH REFLEX MICROSCOPIC AND CULTURE STAT 04/18/2024 8:09 AM EST CULTURE URINE STAT 04/18/2024 8:09 AM EST TRICHOMONAS VAGINALIS ANTIGEN STAT 04/18/2024 8:00 AM EST CHLAMYDIA TRACHOMATIS AND NEISSERIA GONORRHOEAE PCR STAT 04/18/2024 8:00 AM EST WET PREP, GENITAL STAT 04/18/2024 8:0 0 AM EST CBC WITH AUTO DIFFERENTIAL STAT 04/17/2024 9:48 PM EST CBC AND DIFFERENTIAL STAT 04/17/2024 9:48 PM EST LIPASE STAT 04/17/2024 9:48 PM EST COMPREHENSIVE METABOLIC PANEL STAT 04/17/2024 9:48 PM EST documented in this encounter Results * Culture urine (04/18/2024 8:09 AM EST) Culture, Urine No growth 04/19/2024 9:01 AM EST [facility] ([facility] Urine Urine specimen obtained by clean catch procedure / Unknown Non-blood Collection / Unknown 04/18/2024 8:09 AM EST 04/18/2024 8:35 AM EST Marleny [facility] MICROBIOLOGY - G ENERAL ORDERABLES [facility] [address] [place] [address], [place] [phone] * Forrest urine culture tube (04/18/2024 8:09 AM EST) [facility] Extra Tube Hold for add-ons. 04/18/2024 10:01 AM EST [facility] Comment:Auto resulted. Urine Urine specimen obtained by clean catch procedure / Unknown Non-blood Collection / Unknown 04/18/2024 8:09 AM EST 04/18/2024 8:28 AM EST Marleny [facility] URINE ORDERABLES [facility] [address] [place] [address], [place] [phone] * (ABNORMAL) Urinalysis with reflex microscopic and culture (04/18/2024 8:09 AM EST) [facility] Specific [place] Urine 1.017 1.003 - 1.030 LAB URINALYSIS - AUTOMATED METHOD 04/18/2024 8:35 AM [facility] pH, Urine 6.5 5.0 - 8.0 pH LAB URINALYSIS - AUTOMATED METHOD 04/18/2024 8:35 AM [facility] Leukocytes, Urine Trace(A) Negative LAB URINALYSIS - AUTOMATED METHOD 04/18/2024 8:35 AM [facility] Nitrite, Urine Negative Negative LAB URINALYSIS - AUTOMATED METHOD 04/18/2024 8:35 AM [facility] Protein, Urine Negative <=Trace mg/dL LAB URINALYSIS - AUTOMATED METHOD 04/18/2024 8:35 AM [facility] Glucose, Urine Negative Negative mg/dL LAB URINALYSIS - AUTOMATED METHOD 04/18/2024 8:35 AM [facility] Ketones, Urine Negative Negative mg/dL LAB URINALYSIS - AUTOMATED METHOD 04/18/2024 8:35 AM [facility] Urobilinogen, Urine 0.2 0.2 - 1.0 mg/dL LAB URINALYSIS - AUTOMATED METHOD 04/18/2024 8:35 AM [facility] Bilirubin, Urine Negative Negative LAB URINALYSIS - AUTOMATED METHOD 04/18/2024 8:35 AM [facility] Blood, Urine Negative Negative LAB URINALYSIS - AUTOMATED METHOD 04/18/2024 8:35 AM [facility] RBC, Urine 4.3(H) 0 - 4 /HPF LAB URINALYSIS - AUTOMATED METHOD 04/18/2024 8:35 AM [facility] WBC, Urine 2.3 0 - 4 /HPF LAB URINALYSIS - AUTOMATED METHOD 04/18/2024 8:35 AM [facility] Squamous Epithelial, Urine 17 0 - 60 /LPF LAB URINALYSIS - AUTOMATED METHOD 04/18/2024 8:35 AM [facility] Bacteria, Urine Negative Negative /HPF LAB URINALYSIS - AUTOMATED METHOD 04/18/2024 8:35 AM [facility] Hyaline Casts, Urine 0.0 0 - 3 /LPF LAB URINALYSIS - AUTOMATED METHOD 04/18/2024 8:35 AM [facility] Urine Urine specimen obtained by clean catch procedure / Unknown Non-blood Collection / Unknown 04/18/2024 8:09 AM EST 04/18/2024 8:28 AM EST Marleny [facility] URINE ORDERABLES [facility] [address] [place] [address], * Trichomonas vaginalis antigen (04/18/2024 8:00 AM EST) Trichomonas vaginalis Negative Negative 04/18/2024 10:12 AM EST [facility] Swab Vaginal structure / Unknown Non-blood Collection / Unknown 04/18/2024 8:00 AM EST 04/18/2024 8:27 AM EST Marleny [facility] MICROBIOLOGY - G ENERAL ORDERABLES Performing Organization Address [facility]/ZIP Co de Phone Number [facility] [address] [place] [address], * Chlamydia trachomatis and Neisseria gonorrhoeae molecular study (04/18/2024 8:00 AM EST) Neisseria gonorrhoeae PCR Negative Negative LAB MOLECULAR DIAGNOSTICS METHOD 04/18/2024 10:50 AM [facility] Chlamydia trachomatis PCR Negative Negative LAB MOLECULAR DIAGNOSTICS METHOD 04/18/2024 10:50 AM [facility] Swab Vaginal structure / Unknown Non-blood Collection / Unknown 04/18/2024 8:00 AM EST 04/18/2024 8:27 AM EST [facility] MICROBIOLOGY - G ENERAL ORDERABLES Performing Organization Address City/[facility]/ZIP Co de Phone Number [facility] [address] [place] [address], * Wet prep, genital (04/18/2024 8:00 AM EST) Clue Cells, Wet Prep Negative Negative 04/18/2024 10:13 AM [facility] Yeast, Wet Prep Negative Negative 04/18/2024 10:13 AM [facility] Trichomonas, Wet Prep Indeterminate Negative 04/18/2024 10:13 AM [facility] Comment:Refer to Trichomonas antigen. Swab Vaginal structure / Unknown Non-blood Collection / Unknown 04/18/2024 8:00 AM EST 04/18/2024 8:27 AM EST Marleny CORN[facility] MICROBIOLOGY - G ENERAL ORDERABLES [facility] [address] [place] [address], * (ABNORMAL) CBC auto differential (04/17/2024 9:48 PM EST) WBC 9.4 4.8 - 10.8 K/mcL LAB HEMETOLOGY METHOD 04/17/2024 10:28 PM [facility] RBC 4.30 3.80 - 4.80 M/mcL LAB HEMETOLOGY METHOD 04/17/2024 10:28 PM [facility] Hemoglobin 12.9 11.5 - 16.0 g/dL LAB HEMETOLOGY METHOD 04/17/2024 10:28 PM [facility] Hematocrit 39.4 35.0 - 47.0 % LAB HEMETOLOGY METHOD 04/17/2024 10:28 PM [facility] MCV 92.5 79.0 - 98.0 FL LAB HEMETOLOGY METHOD 04/17/2024 10:28 PM [facility] MCH 30.3 27.0 - 32.0 pcg LAB HEMETOLOGY METHOD 04/17/2024 10:28 PM [facility] MCHC 32.7 32.0 - 37.0 g/dL LAB HEMETOLOGY METHOD 04/17/2024 10:28 PM [facility] RDW 13.7 11.0 - 15.0 % LAB HEMETOLOGY METHOD 04/17/2024 10:28 PM [facility] Platelets 255 130 - 400 K/mcL LAB HEMETOLOGY METHOD 04/17/2024 10:28 PM [facility] MPV 10.9 7.0 - 11.0 FL LAB HEMETOLOGY METHOD 04/17/2024 10:28 PM [facility] NRBC 0.0 <1.0 % LAB HEMETOLOGY METHOD 04/17/2024 10:28 PM [facility] NRBC Absolute 0.00 <0.10 K/mcL LAB HEMETOLOGY METHOD 04/17/2024 10:28 PM [facility] Neutrophils Relative 73.0 % LAB HEMETOLOGY METHOD 04/17/2024 10:28 PM [facility] Lymphocytes Relative 17.2 % LAB HEMETOLOGY METHOD 04/17/2024 10:28 PM [facility] Monocytes Relative 7.1 % LAB HEMETOLOGY METHOD 04/17/2024 10:28 PM [facility] Eosinophils Relative 1.6 % LAB HEMETOLOGY METHOD 04/17/2024 10:28 PM [facility] Basophils Relative 0.7 % LAB HEMETOLOGY METHOD 04/17/2024 10:28 PM [facility] Immature Granulocytes Relative 0.4 % LAB HEMETOLOGY METHOD 04/17/2024 10:28 PM [facility] Neutrophils Absolute 6.83 1.50 - 7.00 K/mcL LAB HEMETOLOGY METHOD 04/17/2024 10:28 PM [facility] Lymphocytes Absolute 1.61 1.00 - 5.00 K/mcL LAB HEMETOLOGY METHOD 04/17/2024 10:28 PM [facility] Monocytes Absolute 0.66 0.20 - 1.00 K/mcL LAB HEMETOLOGY METHOD 04/17/2024 10:28 PM [facility] Eosinophils Absolute 0.15 0.00 - 0.50 K/mcL LAB HEMETOLOGY METHOD 04/17/2024 10:28 PM [facility] Basophils Absolute 0.07 0.00 - 0.20 K/mcL LAB HEMETOLOGY METHOD 04/17/2024 10:28 PM EST [facility] Immature Granulocytes Absolute 0.04(H) 0.00 - 0.03 K/mcL LAB HEMETOLOGY METHOD 04/17/2024 10:28 PM [facility] Blood Venous blood specimen / Unknown Venipuncture / Unknown 04/17/2024 9:48 PM EST 04/17/2024 10:17 PM EST Liban Santo LAB BLOOD ORDERABLES [facility] [address] [place] [address], [place] [phone] * Lipase (04/17/2024 9:48 PM EST) Pathologist [facility] Lipase 54 13 - 75 unit/L LAB CHEMISTRY METHOD 04/17/2024 10:45 PM [facility] Blood Venous blood specimen / Unknown Venipuncture / Unknown 04/17/2024 9:48 PM EST 04/17/2024 10:17 PM EST Liban Santo DO LAB BLOOD ORDERABLES Performing Organization Address [facility]/ZIP Co de Phone Number [facility] [address] [place] [address], [place] [phone] * (ABNORMAL) Comprehensive metabolic panel (04/17/2024 9:48 PM EST) Pathologist [facility] Sodium 139 133 - 145 mmol/L LAB CHEMISTRY METHOD 04/17/2024 10:48 PM [facility] Potassium 4.8 3.5 - 5.5 mmol/L LAB CHEMISTRY METHOD 04/17/2024 10:48 PM [facility] Chloride 107 96 - 110 mmol/L LAB CHEMISTRY METHOD 04/17/2024 10:48 PM [facility] CO2 30 21 - 32 mmol/L LAB CHEMISTRY METHOD 04/17/2024 10:48 PM [facility] Anion Gap 2(L) 3 - 11 LAB CHEMISTRY METHOD 04/17/2024 10:48 PM [facility] Glucose 103(H) 70 - 100 mg/dL LAB CHEMISTRY METHOD 04/17/2024 10:48 PM [facility] BUN 17 5 - 25 mg/dL LAB CHEMISTRY METHOD 04/17/2024 10:48 PM [facility] Creatinine 0.97 0.50 - 1.10 mg/dL LAB CHEMISTRY METHOD 04/17/2024 10:48 PM [facility] eGFR 66 >=60 mL/min/1. 73m2 LAB CHEMISTRY METHOD 04/17/2024 10:48 PM [facility] Comment:Calculation based on the??Chronic Kidney Disease Epidemiology Collaboration (CKD-EPI) equation refit??without adjustment for race. BUN/Creatinine Ratio 17.5 LAB CHEMISTRY METHOD 04/17/2024 10:48 PM [facility] Calcium 9.6 8.5 - 10.5 mg/dL LAB CHEMISTRY METHOD 04/17/2024 10:48 PM [facility] AST (SGOT) 28 10 - 42 unit/L LAB CHEMISTRY METHOD 04/17/2024 10:48 PM [facility] ALT (SGPT) 40 10 - 60 unit/L LAB CHEMISTRY METHOD 04/17/2024 10:48 PM [facility] Alkaline Phosphatase 94 42 - 121 unit/L LAB CHEMISTRY METHOD 04/17/2024 10:48 PM [facility] Total Protein 7.9 6.0 - 8.0 g/dL LAB CHEMISTRY METHOD 04/17/2024 10:48 PM [facility] Albumin 4.0 3.2 - 5.0 g/dL LAB CHEMISTRY METHOD 04/17/2024 10:48 PM [facility] Total Bilirubin 0.3 0.0 - 1.4 mg/dL LAB CHEMISTRY METHOD 04/17/2024 10:48 PM EST [facility] Blood Venous blood specimen / Unknown Venipuncture / Unknown 04/17/2024 9:48 PM EST 04/17/2024 10:17 PM EST Liban Santo LAB BLOOD ORDERABLES [facility] [address] [place], [place] [address] [phone] documented in this encounter Visit Diagnoses Diagnosis Vaginal pain- Primary Unspecified symptom associated with female genital organs Rectal pain Anal or rectal pain Encounter for screening mammogram for breast cancer documented in this encounter Additional Health Concerns Assessment Noted Time PHQ-9 Depression Total Score: 1 04/15/19 25 2:51 PM EST documented as of this encounter Care Teams Blankbook Stitching Machine Operator Relationship Specialty Start Date End Date Daphne Almanza MD [address] [place] [address] PCP - General Internal Medicine 11/30/13 documented as of this encounter
--- OUTSIDE RECORDS SUMMARY | 2024-05-01 09:57 | XMS_ITS | Encounter Summary ---
Author Organization [facility] Address [address] [place] [address] Care Team Providers Care Tectonophysicist Name Role Phone Daphne Almanza MD Primary Care Provider [phone] Encounter Details Date Type Department Care Team (Late st Contact Info) Description 04/30/2024 Telephone Gastroenterology - [place] [address] [facility] [address] [place] [address] Glen Nino PA [address] [place], [place] [id number] Social History Tobacco Use Types Packs/Day Years [...] care for your loved ones. For example, children's court magistrate or elderly care for an older adult? [...] on file documented as of this encounter Progress Notes * Renetta Clark MA - 04/30/2024 10:28 AM EST Spoke with patient, see other telephone note. Maria Guadalupe * ADRYAN Jensen - 04/30/2024 10:01 AM EST Please let patient know that we have reviewed the CT and the CT does not give us any explanation for her abdominal pain. Please ask her to try and complete the Cipro therapy to see if that will help with her bowels. Not sure what else could be causing her abdominal pain documented in this encounter Plan of Treatment Upcoming Encounters Date Type Department Care Team (Late st Contact Info) Description 05/22/2024 11:00 AM EST Office Visit Gastroenterology - [place] [address] [facility] [address] [facility] [address] [place] [address] Glen Nino PA 175 [facility] [address] [place] [address] 06/03/2024 2:10 PM EDT Appointment Radiology Department - [address] [phone] 07/09/2024 2:00 PM EDT Office Visit Urogynecology - [address] [phone] Kym Christine MD [address] [place] [address] [address] [place] [address] 07/18/2024 3:00 PM EDT Office Visit Adult Medicine [facility] - [address] [phone] Daphne Almanza MD [address] [place] [address] documented as of this encounter Visit Diagnoses Not on filedocumented in this encounter Additional Health Concerns Assessment Noted Time PHQ-9 Depression Total Score: 1 04/15/19 25 2:51 PM EST documented as of this encounter Care Teams Tectonophysicist Relationship Specialty Start Date End Date Daphne Almanza MD [address] [place] [address] PCP - General Internal Medicine 11/30/13 documented as of this encounter
--- OUTSIDE RECORDS SUMMARY | 2024-05-01 09:57 | XMS_ITS | Encounter Summary ---
Author Organization [facility] Address [address] [place] [address] Care Team Providers Care Audio Visual Facilities Engineer Name Role Phone Daphne Almanza MD Primary Care Provider [phone] Reason for Visit * Reason Onset Date Comments er follow up 04/11/2024 [facility] 04/10/24 Encounter Details Date Type Department Care Team (Late st Contact Info) Description 04/11/2024 Telephone Adult Medicine [facility] [address] [place] [address] Daphne Almanza MD [address] [place] [address] er follow up ([facility] /04/10/24) Social History Tobacco Use Types Packs/Day Years Used Date Smoking Tobacco: Former Cigarettes Smokeless Tobacco: Never Alcohol Use Standard Drinks/Week Comments No 0 (1 standard drink = 0.6 oz pur e alcohol) Sex and Gender Information Value Date Recorded Sex Assigned at Female 04/22/2024 11:24 AM EST Gender Identity Female 04/22/2024 11:24 AM EST Sexual Orientation Straight 04/22/2024 11 :24 AM EST Job Start Date Occupation Industry Not on file Not on file Not on file documented as of this encounter Progress Notes * Teodora Cristina RN - 04/11/2024 4:01 PM EST An appointment was made for her to be seen in the office on 04/15/24 at 3:00 pm with Stephanie Barragan and she is in agreement with this plan. * Viri Cuellar - 04/11/2024 2:37 PM EST Hospital/ER follow up appointment needed Hospital patient was treated at: [facility], [facility] Was this only an ER visit or was the patient admitted to the hospital? ER Visit only Date of visit if ER visit only: If patient was admitted what was the date of discharge? Reason/diagnosis for visit or stay: pelvic pain and rectum pain with burning and pressure When was the patient told to follow up? cj Was visit or stay related to an injury? If yes, what was the date of injury (DOI)? No If yes, was the injury due to: Not 3rd libertarian related documented in this encounter Plan of Treatment Upcoming Encounters Date Type Department Care Team (Late st Contact Info) Description 05/22/2024 11:00 AM EST Office Visit Gastroenterology - [place] [address] [facility] [address] [place] [address] Glen Nino PA [address] [facility] [address] [place] [address] 06/03/2024 2:10 PM EDT Appointment Radiology Department - [address] [phone] 07/09/2024 2:00 PM EDT Office Visit Urogynecology - [address] [phone] Kym Christine MD [address] [place] [address] [address] [place] [address] 07/18/2024 3:00 PM EDT Office Visit Adult Medicine [place] - [place] [address] [place] [address] Daphne Almanza MD [address] [place] [phone] documented as of this encounter Visit Diagnoses Not on filedocumented in this encounter Care Teams Audio Visual Facilities Engineer Relationship Specialty Start Date End Date Daphne Almanza MD [address] [place] [address] PCP - General Internal Medicine 11/30/13 documented as of this encounter
--- OUTSIDE RECORDS SUMMARY | 2024-05-01 09:57 | XMS_ITS | Encounter Summary ---
Author Organization [facility] Address [address] [place] [address] Care Team Providers Care Cartographic Engineer Name Role Phone Daphne Almanza MD Primary Care Provider [phone] Reason for Referral * Consultation (Routine) - Authorized Specialty Diagnoses / Procedures Referred By Contact Referred To Contact Obstetrics and Gynecology Diagnoses Vaginal pain Mavis Osborn PA [address] [place] [address] [facility] [address] Referral ID Status Reason Start Date Expiration Date Visits Requested Visits Authorized [id number] Authorized Specialty Services Required 04/02/2024 04/02/2025 1 1 Reason for Visit * Reason Comments er follow up [facility] 03/24/2024 for D iverticulitis. Encounter Details Date Type Department Care Team ([facility] st Contact Info) Description 04/02/2024 3:30 PM EST Office Visit Adult Medicine [address] [phone] Mavis Osborn PA [address] [place] [address] Vaginal pain (Primary Dx); Elevated LFTs Social History Tobacco Use Types Packs/Day Years Used Date Smoking Tobacco: Former Cigarettes Smokeless Tobacco: Never Tobacco Cessation:Counseling Given: Not Answered Alcohol Use Standard Drinks/Week Comments No 0 [...] Sign Reading Time Taken Comments Blood Pressure 130/80 04/02/2024 3:24 PM EST Pulse 63 04/02/2024 3:24 PM EST Temperature 36.2 ??C (97.2 ??F) 04/02/2024 3:24 PM ES T Respiratory Rate 14 04/02/2024 3:24 PM EST Oxygen Saturation 99% 04/02/2024 3:24 PM EST Inhaled Oxygen Concentration - - Weight 70.3 kg (155 lb) 04/02/2024 3:24 PM EST Height 160 cm (5' 3 ) 04/02/2024 3:24 PM EST Body Mass Index 27.46 04/02/2024 3:24 PM EST documented in this encounter Progress Notes * ADRYAN Langley - 04/02/2024 3:30 PM EST CHIEF COMPLAINT: er follow up ([facility] 03/24/2024 for Diverticulitis.) IDENTIFIER: Nila Banks is a 63 y.o. old female. HPI: 63-year-old female presenting to the office for evaluation. Armenian translation provided by certified medical records coder (Rhiannon). Patient presents for [facility] ER follow-up. She was evaluated on 03/23/24 with complaints of abdominalpain and dysuria having been treated multiple times previously for suspected UTI with antibiotics without improvement. At that time, CBC & BMP unremarkable; elevated AST/ALT at 99/309 and alkaline phosphatase at 175; lipase 63. Negative urine culture. CT abdomen/pelvis with contrast suggestive of uncomplicated sigmoid diverticulitis. Patient was prescribed Augmentin 875-125 mg BID x 7 days. Chart review finds she was previously treated with: 03/04: Macrobid 100mg BID x 7 days 03/06: Azo 03/10: Vantin 200 mg BID x 7 days 03/11: Azo 03/22: Keflex 500 mg TID x 10 days Today, patient states there has been no change in abdominal pain and dysuria. Denies hematuria, fever, chills, nausea, vomiting, diarrhea, or constipation. Reports stooling daily without blood per rectum or melena. Reports discomfort is specifically located inside the vagina, denies reaching out to [facility] for further evaluation. Last routine [facility] evaluation dated 05/30/22. She reports treating discomfort with Tylenol 1000 mg up to BID and ibuprofen 800 mg QD without improvement; when asked about gabapentin, she reports taking 100 mg every morning, 100 mg in the afternoon, and 300 mg at night. However, we discussed pharmacy records as well as [facility] [employer] do not support this frequency, as both concentrations of gabapentin were last filled for 90-days in May 2023 with refills remaining. ROS: GENERAL: No fever, shaking chills RESPIRATORY: No shortness of breath CARDIOVASCULAR: No chest pain GI: As above : As above PAST MEDICAL HISTORY: Patient Active Problem List Diagnosis Date Noted Diverticulosis 03/08/2024 Hiatal hernia 03/08/2024 Rectal pain 03/08/2024 Seasonal allergies 03/08/2024 COVID-19 virus infection 11/30/2021 Chronic insomnia 07/13/2021 Hypersomnolence 07/13/2021 Snoring 07/13/2021 Obstructive sleep apnea 05/24/2021 Fibromyalgia 12/27/2019 Bilateral carpal tunnel syndrome 05/09/2018 Overweight (BMI 25.0-29.9) 05/09/2018 Panic attack 05/09/2018 Right ovarian cyst 05/09/2018 Hypertriglyceridemia 07/21/2017 Thyroid nodule 05/09/2017 Anxiety and depression 08/14/2015 Asthma 08/14/2015 GERD (gastroesophageal reflux disease) 08/14/2015 Past Surgical History: Procedure Laterality Date CARPAL TUNNEL RELEASE Left PROCEDURE: HISTORICAL CARPAL TUNNEL REL COLONOSCOPY 04/20/2012 PROCEDURE: HISTORICAL COLONOSCOPY; COMMENT: [facility] - normal ESOPHAGOGASTRODUODENOSCOPY 08/20/2015 PROCEDURE: [place] ESOPHAGOGASTRODUODENOSCOPY TRANSORAL DIAGNOSTIC; COMMENT: Dr. Rj pepper H/H o/w normal. ESOPHAGOGASTRODUODENOSCOPY PROCEDURE: [place] EGD TRANSORAL BIOPSY SINGLE/MULTIPLE; COMMENT: 08/[address] Ozuna HYSTERECTOMY PROCEDURE: HISTORICAL HYSTERECTOMY; COMMENT: fibroids and menorrhagia TUBAL LIGATION PROCEDURE: HISTORICAL TUBAL LIGATION SOCIAL HISTORY: Social History Tobacco Use Smoking status: Former Current packs/day: 0.25 Types: Cigarettes Smokeless tobacco: Never Substance Use Topics Alcohol use: No FAMILY HISTORY: Family History Problem Relation Name Age of [...] Macular degeneration Neg Hx Strabismus Neg Hx Family Status Relation Name Status Mother Father Brother Alive Sister Alive MGF MGM PGF PGM Aunt maternal Brother Alive Aunt maternal Alive Uncle maternal Alive Neg Hx (Not Specified) Sister Alive No partnership data on file MEDICATIONS DISCONTINUED/REORDERED: Medications Discontinued During This Encounter Medication Reason aluminum-magnesium hydroxide-simethicone (Antacid-Antigas) 200-200-20 mg/5 mL suspension Therapy completed cyclobenzaprine (FLEXERIL) 10 mg tablet Therapy completed docusate sodium (COLACE) 100 mg capsule Therapy completed ondansetron (ZOFRAN) 4 mg tablet Therapy completed polyethylene glycol (MIRALAX) 17 gram packet Therapy completed psyllium (Daily Fiber, psyllium-aspart,) 3.4 gram packet Therapy completed simethicone (MYLICON) 125 mg chewable tablet Therapy completed ACTIVE MEDICATIONS: Outpatient Medications Marked as Taking for the 04/02/24 encounter (Office Visit) with ADRYAN Langley Medication Sig Dispense Refill acetaminophen (TYLENOL 8 [...] CHARLES TABLETA DOS VECES AL D A eszopiclone (LUNESTA) 2 mg tablet JENNYFER LOONEY famotidine (PEPCID) 20 mg tablet Take 1 Tablet by mouth 2 times daily as needed for Heartburn. fexofenadine (LUANA) 180 mg tablet Take 1 tablet by mouth daily. fluticasone propionate (FLONASE) 50 mcg/actuation nasal spray INSTILL 1 SPRAY INTO EACH NOSTRIL TWICE A DAY. 48 mL 5 gabapentin (NEURONTIN) 100 mg capsule PLEASE SEE ATTACHED FOR DETAILED DIRECTIONS LORazepam (ATIVAN) 0.5 mg tablet JENNYFER LOONEY pantoprazole (PROTONIX) 40 mg EC tablet TAKE 1 TABLET TWICE A DAY BEFORE MEALS ON EMPTY STOMACH WAIT 30 MINS THEN EAT TO ACTIVATE MEDICATION risperiDONE (RisperDAL) 2 mg tablet JENNYFER LOONEY venlafaxine XR (EFFEXOR-XR) 150 mg 24 hr capsule 150 mg. 1 Tab daily [DISCONTINUED] aluminum-magnesium hydroxide-simethicone (Antacid-Antigas) 200-200-20 mg/5 mL suspension TAKE 15 ML BY MOUTH 4 TIMES DAILY (BEFORE MEALS AND NIGHTLY). [DISCONTINUED] cyclobenzaprine (FLEXERIL) 10 mg tablet Take 1 Tablet by mouth 3 times daily as needed for Muscle spasms. [DISCONTINUED] docusate sodium (COLACE) 100 mg capsule Take 1 Capsule by mouth 2 times daily. [DISCONTINUED] ondansetron (ZOFRAN) 4 mg tablet Take 1 Tablet by mouth every 8 hours as needed for Nausea for up to 7 days. [DISCONTINUED] polyethylene glycol (MIRALAX) 17 gram packet Take 1 Packet by mouth daily. [DISCONTINUED] psyllium (Daily Fiber, psyllium-aspart,) 3.4 gram packet Take 1 Packet by mouth daily. [DISCONTINUED] simethicone (MYLICON) 125 mg chewable tablet Take 1 Tab by mouth every 6 hours as needed for Flatulence. ALLERGIES: Allergies Allergen Reactions Aspirin GI upset with this and Motrin Pineapple Throat discomfort with fresh pineapple- oral allergy syndrome PHYSICAL EXAM: Visit Vitals BP 130/80 Pulse 63 Temp 36.2 ??C (97.2 ??F) (Temporal) Resp 14 Ht 1.6 m (63 ) Wt 70.3 kg (155 lb) SpO2 99% BMI 27.46 kg/m?? Smoking Status Former BSA 1.74 m?? Wt Readings from Last 5 Encounters: 04/02/24 70.3 kg (155 lb) 03/23/24 72.6 kg (160 lb) 03/11/24 70.4 kg (155 lb 3.2 oz) 12/22/23 70.7 kg (155 lb 14.4 oz) 12/08/23 70 kg (154 lb 6.4 oz) BMI plan is deferred until next visit APPEARANCE: Alert, overweight, and in no acute distress HEART: RRR with normal S1 and S2, no murmurs, no gallops LUNG: Bilateral lung damian clear to auscultation throughout LABS: Orders Placed This Encounter Procedures Hepatic function panel Ambulatory referral to Obstetrics / Gynecology IMAGING: As above IMPRESSION: 1. Vaginal pain 2. Elevated LFTs PLAN: Patient is directed to [facility] department for further evaluation of reported vaginal pain. Will repeat hepatic function given elevated LFTs; keep appointment with gastroenterology on 04/25/24, as scheduled. Medication and lab orders: Orders Placed This Encounter Procedures Ambulatory referral to Obstetrics / Gynecology Other orders: AMB REFERRAL TO [facility] ADRYAN Langley on 04/02/2024 at 4:00 PM EST documented in this encounter Plan of Treatment Upcoming Encounters Date Type Department Care Team (Late st Contact Info) Description 05/22/2024 11:00 AM EST Office Visit Gastroenterology - [place] [address] [facility] [address] [place] [id number] Andrew Nino PA [address] [place] [address] 06/03/2024 2:10 PM EDT Appointment Radiology Department - [address] [phone] 07/09/2024 2:00 PM EDT Office Visit Urogynecology - [address] [phone] Kym Christine MD [address] [facility] [address] [place] [address] 07/18/2024 3:00 PM EDT Office Visit Adult Medicine South - [address] [phone] Daphne Almanza MD [address] [place] [address] Scheduled Referrals Name Type Priority Associated Diagnoses Order Schedule Ambulatory referral to Obstetrics / Gynecology Outpatient Referral Routine Vaginal pain 1 Occurrences starting 04/02/2024 until 04/02/2025 documented as of this encounter Visit Diagnoses Diagnosis Vaginal pain- Primary Unspecified symptom associated with female genital organs Elevated LFTs Other abnormal blood chemistry Encounter for screening mammogram for breast cancer documented in this encounter Discontinued Medications Medication Sig Discontinue Reason Start Date End Da te aluminum-magnesium hydroxide-simethicone (Antacid-Antigas) 200-200-20 mg/5 mL suspension TAKE 15 ML BY MOUTH 4 TIMES DAILY (BEFORE MEALS AND NIGHTLY). Therapy completed 04/05/2021 04/02/2024 cyclobenzaprine (FLEXERIL) 10 mg tablet Take 1 Tablet by mouth 3 times daily as needed for Muscle spasms. Therapy completed 12/08/2023 04/02/2024 docusate sodium (COLACE) 100 mg capsule Take 1 Capsule by mouth 2 times daily. Therapy completed 07/20/2021 04/02/2024 ondansetron (ZOFRAN) 4 mg tablet Take 1 Tablet by mouth every 8 hours as needed for Nausea for up to 7 days. Therapy completed 06/13/2023 04/02/2024 polyethylene glycol (MIRALAX) 17 gram packet Take 1 Packet by mouth daily. Therapy completed 07/20/2021 04/02/2024 psyllium (Daily Fiber, psyllium-aspart,) 3.4 gram packet Take 1 Packet by mouth daily. Therapy completed 07/20/2021 04/02/2024 simethicone (MYLICON) 125 mg chewable tablet Take 1 Tab by mouth every 6 hours as needed for Flatulence. Therapy completed 12/30/2019 04/02/2024 documented as of this encounter Orders Lab Orders Without Results Count Last Ordered D ate First Ordered Date HEPATIC FUNCTION PANEL 1 04/02/2024 documented in this encounter Care Teams Cartographic Engineer Relationship Specialty Start Date End Date Daphne Almanza MD [address] [place] [address] PCP - General Internal Medicine 11/30/13 documented as of this encounter
--- OUTSIDE RECORDS SUMMARY | 2024-05-01 09:57 | XMS_ITS | Encounter Summary ---
Author Organization [facility] Address [address] [place] [address] Care Team Providers Care Locomotive Inspector Name Role Phone Daphne Almanza MD Primary Care Provider [phone] Reason for Visit * Reason Onset Date Comments Medication Problem 04/29/2024 Encounter Details Date Type Department Care Team (Late st Contact Info) Description 04/29/2024 Telephone Gastroenterology - [place] [address] [place] [address] Glen Nino PA [address] [place], [place] [id number] Medication Problem Social History Tobacco Use Types Packs/Day Years [...] your loved ones. For example, child support officer or elderly care for an older [...] as of this encounter Progress Notes * Chely He - 04/30/2024 4:29 PM EST Patient's daughter calling back with patient. States continuing to take medication but still havingsevere issues with burping and diarrhea and abd pain. Please advise. * Renetta Clark MA - 04/30/2024 10:25 AM EST Images from the original note were not included. Spoke with patient, gave results from Glen below. She will complete the course of cipro and see if it helps, if not she will be calling back. Maria Guadalupe Glen ADRYAN Ohara 04/30/24 10:02 AM Note Please let patient know that we have reviewed the CT and the CT does not give us any explanation for her abdominal pain. Please ask her to try and complete the Cipro therapy to see if that will help with her bowels. Not sure what else could be causing her abdominal pain * Denia Jewell - 04/29/2024 1:11 PM EST Patient calling states the ciprofloxacin is not helping still in a lot of pain and can't eat, please advise documented in this encounter Plan of Treatment Upcoming Encounters Date Type Department Care Team (Late st Contact Info) Description 05/22/2024 11:00 AM EST Office Visit Gastroenterology - [place] [address] [facility] [address] [facility] [address] [place] [address] Glen Nino PA [address] [facility] [address] [place] [address] 06/03/2024 2:10 PM EDT Appointment Radiology Department - [address] [phone] 07/09/2024 2:00 PM EDT Office Visit Urogynecology - [address] [phone] Kym Christine MD [address] [place] [address] [address] [place] [address] 07/18/2024 3:00 PM EDT Office Visit Adult Medicine [facility] [address] [place] [address] Daphne Almanza MD [address] [place] [address] documented as of this encounter Visit Diagnoses Not on filedocumented in this encounter Additional Health Concerns Assessment Noted Time PHQ-9 Depression Total Score: 1 04/15/19 25 2:51 PM EST documented as of this encounter Care Teams Locomotive Inspector Relationship Specialty Start Date End Date Daphne Almanza MD [address] [place] [address] PCP - General Internal Medicine 11/30/13 documented as of this encounter
--- OUTSIDE RECORDS SUMMARY | 2024-05-01 09:57 | XMS_ITS | Encounter Summary ---
Author Organization [facility] Address [address] [place] [address] Care Team Providers Care Barbering Instructor Name Role Phone Daphne Almanza MD Primary Care Provider Encounter Details Date Type Department Care Team (Late st Contact Info) Description 01/01/2024 2:30 PM EDT Hospital Encounter TH HISTORIC ENCOUNTERS EASTERN CONVERSION ONLY Daphne Almanza MD [address] [place] [address] Social History Tobacco Use Types Packs/Day Years [...] for your loved ones. For example, children's program coordinator or elderly care for an older adult? [...] 11:00 AM EST Office Visit Gastroenterology - [place] [address] [place] [phone] Glen Nino, ADRYAN [address] [place] [address] 06/03/2024 2:10 PM EDT Appointment Radiology Department - [address] [phone] 07/09/2024 2:00 PM EDT Office Visit Urogynecology - [address] [phone] Kym Christine MD [address] [place] [address] 07/18/2024 3:00 PM EDT Office Visit Adult Medicine South - [address] [phone] Daphne Almanza MD [address] [place] [address] documented as of this encounter Visit Diagnoses Not on filedocumented in this encounter Care Teams Barbering Instructor Relationship Specialty Start Date End Date Daphne Almanza MD [address] [place] [address] PCP - General Internal Medicine 11/30/13 documented as of this encounter
--- OUTSIDE RECORDS SUMMARY | 2024-05-01 09:57 | XMS_ITS | Encounter Summary ---
Author Organization [facility] Address [address] [place] [address] Care Team Providers Care Burlap Man Name Role Phone Daphne Almanza MD Primary Care Provider [phone] Reason for Referral * Consultation (Routine) - Authorized Specialty Diagnoses / Procedures Referred By Radha olsen Referred To Contact Urogynecology Diagnoses Pelvic pressure in female Stephanie Barragan PA [address] [place] [id number] [facility] [address] Referral ID Status Reason Start Date Expiration Date Visits Requested Visits Authorized [id number] Authorized Specialty Services Required 04/15/2024 04/15/2025 1 1 Reason for Visit * Reason Comments Follow-up Er follow uo Encounter Details Date Type Department Care Team ([facility] Contact Info) Description 04/15/2024 3:00 PM EST Office Visit Adult Medicine [address] [phone] Stephanie Barragan PA [address] [place] [phone] Pelvic pressure in female (Primary Dx); Decreased GFR; Elevated LFTs; Diverticulitis; Rectal pain Social History Tobacco Use Types Packs/Day Years [...] care for your loved ones. For example, child's nurse or elderly care for an older adult? [...] Sign Reading Time Taken Comments Blood Pressure 119/64 04/15/2024 2:52 PM EST Pulse 65 04/15/2024 2:52 PM EST Temperature 36.4 ??C (97.5 ??F) 04/15/2024 2:52 PM ES T Respiratory Rate 15 04/15/2024 2:52 PM EST Oxygen Saturation - - Inhaled Oxygen Concentration - - Weight 70.4 kg (155 lb 3.2 oz) 04/15/2024 2:52 P M EST Height 160 cm (5' 3 ) 04/15/2024 2:52 PM EST Body Mass Index 27.49 04/15/2024 2:52 PM EST documented in this encounter Progress Notes * Arleth Bardales MA - 04/15/2024 3:00 PM EST Social Influencers of Health Who provided answers?: Self Within the past 12 months we worried whether our food would run out before we got money to buy more.: Never true Within the past 12 months the food we bought just didn't last and we didn't have money to get more.: Never true How hard is it for you to pay for the very basics like food, housing, medical care, and air conditioning / heating?: Not very hard Are you worried that in the next 2 months you may not have stable housing?: No Do you have access to a variety of food including fruits and vegetables?: Yes Has the lack of transportation kept you from meetings, work, or from getting things needed for daily living?: No Has the lack of transportation kept you from medical appointments or from getting medications?: No How often do you feel lonely or isolated from those around you?: Never How often do you need to have someone help you when you read instructions, pamphlets, or other written material from your doctor or pharmacy?: Never Depression Screening Will the patient answer the depression risk questions?: Yes Over the last 2 weeks, how often have you been bothered by little interest or pleasure in doing things?: Not at all Over the last 2 weeks, how often have you been bothered by feeling down, depressed, or hopeless?: Several days Depression Risk: 1 * ADRYAN Levine - 04/15/2024 3:00 PM EST CHIEF COMPLAINT: Follow-up (Er follow uo) IDENTIFIER: Nila Banks is a 63 y.o. old female. HPI: Patient presents to the office today for evaluation of pelvic pain/pressure x weeks. She is primarily Frisian-speaking. assistant foreman staff Arleth Bardales is helping provide translation for [employer] video director print. She was seen at [facility] ER on 03/23/2024 and had follow-up with [...] appointment on 04/25/2024. She then presented to [facility] on 04/05/2024 endorsing 1 month of suprapubic/bladder pain. Reported being seen at urgent care center 3 times for the same concern as well. Was prescribed numerous courses of antibiotics for suspected UTI. It is documented that patient was also seen at [facility] on 03/10/2024 for the same concern. Gonorrhea [...] referral from PCP. She then presented to [facility] on 04/11/2024 for continued symptoms. CBC without [...] She continues to have lower abdominal discomfort/pressure. ROS: GENERAL: SEE HPI and No malaise, significant weight loss RESPIRATORY: No cough, wheezing or shortness of breath CARDIOVASCULAR: No chest pain, leg swelling or palpitations GI: SEE HPI : SEE HPI FIRE ALARM MECHANIC: SEE HPI. MUSCULOSKELETAL: See HPI NEURO: No persistent headache, syncope, seizures, weakness or numbness PAST MEDICAL HISTORY: Patient Active Problem List [...] Asthma 08/14/2015 GERD (gastroesophageal reflux disease) 08/14/2015 SOCIAL HISTORY: Social History Tobacco Use Smoking status: Former Current packs/day: 0.25 Types: Cigarettes Smokeless tobacco: Never Substance Use Topics Alcohol use: No FAMILY HISTORY: Family Status Relation Name Status Mother Father Brother Alive Sister Alive MGF MGM PGF PGM Aunt maternal Brother Alive Aunt maternal Alive Uncle maternal Alive Neg Hx (Not Specified) Sister Alive No partnership data on file Family History Problem Relation Name Age of [...] Macular degeneration Neg Hx Strabismus Neg Hx ACTIVE MEDICATIONS: Outpatient Medications Marked as Taking for the 04/15/24 encounter (Office Visit) with ADRYAN Levine Medication Sig Dispense Refill acetaminophen (TYLENOL 8 [...] g 11 LORazepam (ATIVAN) 0.5 mg tablet ELLEN GASCAJENNYFER JI metroNIDAZOLE (FLAGYL) 500 mg tablet Take 1 [...] to activate the medication 30 each 11 mfjsyvpdc-hkwqybnq-sgkna-w.pet (Preparation H Maximum Strength) 0.25-1 % cream Insert 0.0385 each into the rectum 2 (two) times a day if needed (rectal irritation). 60 g 6 risperiDONE (RisperDAL) 2 mg tablet ELLEN KEYONMARGARITAJENNYFER JI venlafaxine XR (EFFEXOR-XR) 150 mg 24 hr capsule 150 mg. 1 Tab daily ALLERGIES: Aspirin and Pineapple PHYSICAL EXAM: Blood pressure 119/64, pulse 65, temperature 36.4 ??C (97.5 ??F), temperature source Temporal, resp. rate 15, height 1.6 m (63 ), weight 70.4 kg (155 lb 3.2 oz). Body mass index is 27.49 kg/m??. Planis deferred until next visit APPEARANCE: Alert and in no acute distress EYES: conjunctiva and sclera normal HEART: RRR with normal S1 and S2, no murmurs LUNG: clear to auscultation ABDOMEN: Nondistended. Bowel sounds normoactive, no bruits, soft. Nontender. No rebound, guarding, or rigidity. BACK: No CVA tenderness EXTREMITIES: Extremities warm and well perfused without clubbing, cyanosis, or edema NEURO: Awake, alert and oriented x 3 SKIN: Skin color, texture, turgor normal. No rashes. LABS: See HPI Lab Results Component Value Date WBC 8.4 04/12/2024 HGB 13.7 04/12/2024 HCT 42.7 04/12/2024 MCV 93.6 04/12/2024 PLT 300 04/12/2024 Lab Results Component Value Date NA 139 04/12/2024 K 4.9 04/12/2024 CL 107 04/12/2024 CO2 27 04/12/2024 GLUCOSE 88 04/12/2024 BUN 24 04/12/2024 CREATININE 0.91 04/12/2024 CALCIUM 9.6 04/12/2024 PROT 8.2 (H) 04/12/2024 ALBUMIN 4.3 04/12/2024 BILITOT 0.4 04/12/2024 BILITOT 0.4 04/12/2024 AST 27 04/12/2024 ALT 67 (H) 04/12/2024 ALKPHOS 103 04/12/2024 EGFR 71 04/12/2024 IMAGING: See HPI IMPRESSION: 1. Pelvic pressure in female 2. Decreased GFR 3. Elevated LFTs 4. Diverticulitis 5. Rectal pain PLAN: Vitals are stable. Patient is in no acute distress. [facility], [facility] on 1 occasion, [facility] on 1 occasion, and urgent care center 3 times and has also been evaluated with my colleague and our GI department in the last 4 to 6 weeks for ongoing concerns of pelvic pressure. Has had multiple rounds of antibiotics. Vitals are stable. Patient is in no acute distress. Most recent lab work showed significant improvementin liver function testing. Subsequent lab work also showed significant improvement in GFR. Patient will continue care with GI for ongoing evaluation and management of lower abdominal pain, diverticuli tis, rectal pain. She will keep upcoming appointment with FIRE ALARM MECHANIC as scheduled. Discussed evaluation with urology versus urogynecology. Patient opts for urogynecology and referral is placed. Patient understands and agrees to plan. Patient will return to the office for routine care with PCP. Will contact the office sooner with any further problems or concerns. The total length of this visit was 40 minutes. This includes time reviewing chart prior to the visit, obtaining history, interaction with and evaluation of the patient, review of recent lab work/imaging, ordering referral, documenting clinical information as well as providing counseling regarding the above diagnoses. Orders Placed This Encounter Procedures Ambulatory referral to Urogynecology ADDITIONAL ORDERS: AMB REFERRAL TO UROGYNECOLOGY ADRYAN Levine on 04/15/2024 at 3:33 PM EST documented in this encounter Plan of Treatment Upcoming Encounters Date Type Department Care Team (Late st Contact Info) Description 05/22/2024 11:00 AM EST Office Visit Gastroenterology - [place] [address] [facility] [address] [place] [id number] Andrew Nino PA [address] [place] [address] 06/03/2024 2:10 PM EDT Appointment Radiology Department - [address] [phone] 07/09/2024 2:00 PM EDT Office Visit Urogynecology - [address] [phone] Kym Christine MD [address] [place] [address] [address] [place] [address] 07/18/2024 3:00 PM EDT Office Visit Adult Medicine South - [address] [phone] Daphne Almanza MD [address] [place] [address] Scheduled Referrals Name Type Priority Associated Diagnoses Order Schedule Ambulatory referral to Urogynecology Outpatient Referral Routine Pelvic pressure in female 1 Occurrences starting 04/15/2024 until 04/15/2025 documented as of this encounter Visit Diagnoses Diagnosis Pelvic pressure in female- Primary Decreased GFR Elevated LFTs Other abnormal blood chemistry Diverticulitis Diverticulitis of colon (without mention of hemorrhage) Rectal pain Anal or rectal pain Encounter for screening mammogram for breast cancer documented in this encounter Additional Health Concerns Assessment Noted Time PHQ-9 Depression Total Score: 1 04/15/19 25 2:51 PM EST documented as of this encounter Care Teams Burlap Man Relationship Specialty Start Date End Date Daphne Almanza MD [address] [place] [address] PCP - General Internal Medicine 11/30/13 documented as of this encounter
--- OUTSIDE RECORDS SUMMARY | 2024-05-01 09:57 | XMS_ITS | Encounter Summary ---
Author Organization [facility] Address [address] [place] [address] Care Team Providers Care Collision Worker Name Role Phone Daphne Almanza MD Primary Care Provider [phone] Encounter Details Date Type Department Care Team (Late st Contact Info) Description 04/02/2024 Telephone Obstetrics and Gynecology - [place] [address] [place], [place] [phone] Maria Victoria Ellington MD [address] [place], [place] Social History Tobacco Use Types Packs/Day [...] as of this encounter Progress Notes * Talia Jimenez RN - 04/02/2024 4:34 PM EST Called patient. Appt made with Dr Ellington for 04/16/2024 at 245pm. Pt reports the pain is like a pressure. Was seen at [place] [facility] and [facility] ER , was diagnosed with Uti, diverticulitis, but her vaginal pain has not been addressed. * Malorie Vishal - 04/02/2024 4:03 PM EST Pt was seen today by Mavis Osborn in [facility]. She was seen at [facility] for abdominal pain and was treated with antibiotics for diverticulitis. Mavis referred her to us because she thinks there may be an underling dial maker issue. Ivorian speaking only. documented in this encounter Plan of Treatment Upcoming Encounters Date Type Department Care Team (Late st Contact Info) Description 05/22/2024 11:00 AM EST Office Visit Gastroenterology - [place] 175 [facility] [address] [facility] [address] [place] [address] Glen Nino PA 175 [facility] 200 [place] [address] 06/03/2024 2:10 PM EDT Appointment Radiology Department - [address] [phone] 07/09/2024 2:00 PM EDT Office Visit Urogynecology - [address] [phone] Kym Christine MD [address] [place] [address] [address] [place] [address] 07/18/2024 3:00 PM EDT Office Visit [facility] - [address] [phone] Daphne Almanza MD [address] [place] [address] documented as of this encounter Visit Diagnoses Not on filedocumented in this encounter Care Teams Collision Worker Relationship Specialty Start Date End Date Daphne Almanza MD [address] [place] [address] PCP - General Internal Medicine 11/30/13 documented as of this encounter
--- OUTSIDE RECORDS SUMMARY | 2024-05-01 09:57 | XMS_ITS | Encounter Summary ---
Author Organization [facility] Address [address] [place] [address] Care Team Providers Care Home School Liaison Officer Name Role Phone Daphne Almanza MD Primary Care Provider Reason for Visit * Reason Onset Date Comments er follow up 04/08/2024 Encounter Details Date Type Department Care Team (Late st Contact Info) Description 04/08/2024 Telephone Obstetrics and Gynecology - [address] [phone] Maria Victoria Ellington MD [address] [place], [place] er follow up Social History Tobacco Use Types Packs/Day Years [...] as of this encounter Progress Notes * Cyndy Torres RN - 04/08/2024 11:39 AM EST Spoke with patients daughter. Pt was referred to a urologist by the [facility] provider. Pt has an apptwith Dr Ellington on 04/16/24. From a referral from PCP provider. Pt will contact [facility] to see what Urologist she was referred to. * Isa Head - 04/08/2024 11:23 AM EST Pt daughter calling (bony) states pt was seen at [facility] on 04/05/24 and was advise to seek it security architect. Notes scanned into pt chart . Pls advise documented in this encounter Plan of Treatment Upcoming Encounters Date Type Department Care Team (Late st Contact Info) Description 05/22/2024 11:00 AM EST Office Visit Gastroenterology - [place] 175 [facility] 175 [facility] [address] [place] [address] Glen Nino PA 175 [facility] 200 [place] [address] 06/03/2024 2:10 PM EDT Appointment Radiology Department - [address] [phone] 07/09/2024 2:00 PM EDT Office Visit Urogynecology - [address] [phone] Kym Christine MD [address] [place] [address] [address] [place] [address] 07/18/2024 3:00 PM EDT Office Visit Adult Medicine South - [address] [phone] Daphne Almanza MD [address] [place] [address] documented as of this encounter Visit Diagnoses Not on filedocumented in this encounter Care Teams Home School Liaison Officer Relationship Specialty Start Date End Date Daphne Almanza MD [address] [place] [address] PCP - General Internal Medicine 11/30/13 documented as of this encounter
--- OUTSIDE RECORDS SUMMARY | 2024-05-01 09:57 | XMS_ITS | Encounter Summary ---
Author Organization [facility] Address [address] [place] [address] Care Team Providers Care Belt And Link Assembly Supervisor Name Role Phone Daphne Almanza MD Primary Care Provider Reason for Visit * Reason Comments Pain Vaginal pain and dis comfort Encounter Details Date Type Department Care Team (Late st Contact Info) Description 04/25/2024 10:45 AM EST Office Visit Obstetrics and Gynecology - [address] [phone] Maria Victoria Ellington MD [address] [place], [place] Pelvic pressure in female (Primary Dx) Social History Tobacco Use Types [...] care for your loved ones. For example, rn maternal child or elderly care for an [...] Sign Reading Time Taken Comments Blood Pressure 122/70 04/25/2024 10:58 AM EST Pulse 68 04/25/2024 10:58 AM EST Temperature - - Respiratory Rate 16 04/25/2024 10:58 AM EST Oxygen Saturation - - Inhaled Oxygen Concentration - - Weight 67.6 kg (149 lb) 04/25/2024 10:58 AM EST Height 160 cm (5' 3 ) 04/25/2024 10:58 AM EST Body Mass Index 26.39 04/25/2024 10:58 AM EST documented in this encounter Progress Notes * Maria Victoria Ellington MD - 04/25/2024 2:39 PM ESTAssociated Problem(s): Pelvic pressure in female I reviewed Nila's ED records. I counseled Nila that her exam is normal. She does have atrophy which can lead to irritative voiding sx, but not totally c/w her story. She was counseled that she may have passed a kidney stone that night and had irritation thereafter that has since almost resolved. I recommended she continue to monitor if not improving, can return. * Maria Victoria Ellington MD - 04/25/2024 10:45 AM EST 04/25/2024 Chief Complaint Patient presents with Pain Vaginal pain and discomfort Subjective: Nila Banks is a 63 y.o. who presents for vaginal pressure. She reports it started 6 weeks ago in the night when she awoke with pain in the mid pelvis that radiated a pressure sensation to her vagina. She voided 15 times that night. Was seen subsequently and tested for everything. Only finding was blood in urine, which cleared after the third time it was run. She had a CT and abdominal US, both normal. She had a hyst in the past for fibroids. Ovaries remain. Not visible on CT. Never had pain with sex. Last about two months ago. Now urinating normally. No blood. Pressure sensation is intermittent. Not painful any longer. She is using meds for constipation. Daily BM. Follows with GI. She has follow up appt tomorrow with GI for anal burning and pain and having a study. Fhx of breast cancer in aunt, uterine cancer in other aunt. Had a hyst for fibroids years ago. No discharge, odor, prolapse. Review of Systems: As in HPI. Patient Active Problem List Diagnosis Anxiety and depression Asthma Bilateral carpal tunnel syndrome Chronic insomnia COVID-19 virus infection Diverticulosis Fibromyalgia GERD (gastroesophageal reflux disease) Gastroesophageal reflux disease Hypersomnolence Hypertriglyceridemia Obstructive sleep apnea Overweight (BMI 25.0-29.9) Panic attack Rectal pain Right ovarian cyst Seasonal allergies Snoring Thyroid nodule Anxiety Past Medical History: Diagnosis Date Abdominal pain DX:Abdominal pain Anxiety 08/14/2015 DX:Anxiety Asthma 08/14/2015 DX:Asthma Choking DX:Choking Constipation DX:Constipation COVID-19 virus infection 11/30/2021 DX:COVID-19 virus infection; COMMENT: 11.21.21 Depressive disorder DX:Depressive disorder Diverticulosis DX:Diverticulosis GERD [...] REL COLONOSCOPY 04/20/2012 PROCEDURE: HISTORICAL COLONOSCOPY; COMMENT: [facility] - normal ESOPHAGOGASTRODUODENOSCOPY 08/20/2015 PROCEDURE: MD ESOPHAGOGASTRODUODENOSCOPY TRANSORAL DIAGNOSTIC; COMMENT: Dr. Rj pepper H/H o/w normal. ESOPHAGOGASTRODUODENOSCOPY PROCEDURE: MD EGD TRANSORAL BIOPSY SINGLE/MULTIPLE; COMMENT: 08/[address] Ozuna HYSTERECTOMY PROCEDURE: HISTORICAL HYSTERECTOMY; COMMENT: fibroids and menorrhagia TUBAL LIGATION PROCEDURE: HISTORICAL TUBAL LIGATION Family History Problem Relation Name Age of [...] Macular degeneration Neg Hx Strabismus Neg Hx Social History Socioeconomic History Marital status: Single Spouse name: None Number of children: None Years of education: None Highest education level: None Occupational History None Tobacco Use Smoking status: Former Current packs/day: 0.25 Types: Cigarettes Smokeless tobacco: Never Substance and Sexual Activity Alcohol use: No Drug use: No Sexual activity: Yes Partners: Male control/protection: Surgical Comment: hysterectomy Other Topics Concern None Social History Narrative 05/09/18 Lives with alone; no pets. Feels safe at home; no guns; has functional fire alarm / carbonmonoxide detectors; discussed seatbelt in the car. Performs monthly self breast exams. OB History Para Term AB Living 10 8 8 2 7 SAB IAB Ectopic Multiple Live Births 2 8 # Outcome Date GA Lbr Yousuf/2nd Weight Sex Type Anes PTL Lv 10 Term Vag-Spont GERONIMO 9 Term Vag-Spont GERONIMO 8 Term GERONIMO 7 Term GERONIMO 6 Term GERONIMO 5 Term GERONIMO 4 Term GERONIMO 3 Term F DEC 2 SAB GERONIMO 1 SAB Current Outpatient Medications on File Prior to Visit Medication Sig Dispense Refill acetaminophen (TYLENOL 8 [...] day for 14 days. 28 each 0 dicyclomine (BENTYL) 20 mg tablet Take 1 tablet (20 mg total) by mouth 2 (two) times a day for 10 days. 20 tablet 0 eszopiclone (LUNESTA) 2 mg tablet JENNYFER [...] to activate the medication 30 each 11 risperiDONE (RisperDAL) 2 mg tablet JENNYFER LOONEY venlafaxine XR (EFFEXOR-XR) 150 mg 24 hr capsule 150 mg. 1 Tab daily famotidine (Pepcid) 20 mg tablet Take 1 tablet (20 mg total) by mouth 2 (two) times a day if neededfor heartburn. (Patient not taking: Reported on 04/25/2024) 60 each 11 mphtpaejy-lniqcvti-wwtkp-w.pet (Preparation H Maximum Strength) 0.25-1 % cream Insert 0.0385 each into the rectum 2 (two) times a day if needed (rectal irritation). (Patient not taking: Reported on 04/25/2024) 60 g 6 [] traMADoL (ULTRAM) 50 mg tablet Take 1 tablet (50 mg total) by mouth every 6 (six) hours if needed for severe pain for up to 3 days. Max Daily Amount: 200 mg 12 tablet 0 No current facility-administered medications on file prior to visit. Allergies Allergen Reactions Aspirin GI upset with this and Motrin Pineapple Throat discomfort with fresh pineapple- oral allergy syndrome Objective: Vitals: 04/25/24 1058 BP: 122/70 Pulse: 68 Resp: 16 Weight: 67.6 kg (149 lb) Height: 1.6 m (63 ) Gen: Well-appearing on today's exam NEUROLOGIC: speech fluent, grossly intact PSYCH: Mood and affect appropriate. Alert and oriented x 3. ABDOMEN: Soft, non-tender. No masses palpable, no organomegaly. LYMPH: No inguinal lymphadenopathy. PELVIC: External Genitalia: Exam chaperoned by medical staff services manager. Normal architecture, without lesions Urethral meatus: normal Vagina: normal appearance. Mucosa pale and atrophic. No discharge. No lesions. Cervix and uterus surgically absent. Adnexa: No adnexal masses or fullness. Non-tender Perianal area: No lesions. Assessment/Plan: 63 y.o. with: No problem-specific Assessment & Plan notes found for this encounter. No orders of the defined types were placed in this encounter. No follow-ups on file. Maria Victoria Ellington MD documented in this encounter Plan of Treatment Upcoming Encounters Date Type Department Care Team (Late st Contact Info) Description 05/22/2024 11:00 AM EST Office Visit Gastroenterology - [place] [address] [place] [address] Andrew Nino PA 175 [facility] 200 [place] [address] 06/03/2024 2:10 PM EDT Appointment Radiology Department - [address] [phone] 07/09/2024 2:00 PM EDT Office Visit Urogynecology - [address] [phone] Kym Christine MD [address] [place] [address] [address] [place] [address] 07/18/2024 3:00 PM EDT Office Visit Adult Medicine South - [address] [phone] Daphne Almanza MD [address] [place] [address] documented as of this encounter Visit Diagnoses Diagnosis Pelvic pressure in female- Primary Encounter for screening mammogram for breast cancer documented in this encounter Additional Health Concerns Assessment Noted Time PHQ-9 Depression Total Score: 1 04/15/19 25 2:51 PM EST documented as of this encounter Care Teams Belt And Link Assembly Supervisor Relationship Specialty Start Date End Date Daphne Almanza MD [address] [place] [address] PCP - General Internal Medicine 11/30/13 documented as of this encounter
--- OUTSIDE RECORDS SUMMARY | 2024-05-01 09:57 | XMS_ITS | Encounter Summary ---
Author Organization [facility] Address [address] [place] [address] Care Team Providers Care Licensed Prosthetist Name Role Phone Daphne Almanza MD Primary Care Provider Reason for Referral * Imaging (Routine) - Closed Specialty Diagnoses / Procedures Referred By Radha olsen Referred To Contact Radiology Diagnoses Diverticulosis H/O diverticulitis of colon LLQ pain Elevated liver enzymes Gastroesophageal reflux disease without esophagitis Rectal irritation Procedures CT Abdomen Pelvis w Contrast Andrew Nino PA [address] [address] [facility] [address] [place] [address] Referral ID Status Reason Start Date Expiration Date Visits Re quested Visits Authorized [id number] Closed 04/19/2024 06/18/2024 1 1 Reason for Visit * Reason Comments GI Problem Encounter Details Date Type Department Care Team (Latest Contact Info) Description 04/12/2024 1:20 PM EST Office Visit Gastroenterology - [place] 175 [place]ul[place] [address] [phone] Andrew Nino PA [address] [address] Diverticulosis (Primary Dx); H/O diverticulitis of colon; LLQ pain; Elevated liver enzymes; Gastroesophageal reflux disease without esophagitis; Rectal irritation Social History Tobacco Use Types Packs/Day Years [...] for your loved ones. For example, child center assistant or elderly care for an older adult? [...] Sign Reading Time Taken Comments Blood Pressure 144/78 04/12/2024 1:27 PM EST Pulse 70 04/12/2024 1:27 PM EST Temperature - - Respiratory Rate - - Oxygen Saturation - - Inhaled Oxygen Concentration - - Weight 68 kg (150 lb) 04/12/2024 1:27 PM EST Height 160 cm (5' 3 ) 04/12/2024 1:27 PM EST Body Mass Index 26.57 04/12/2024 1:27 PM EST documented in this encounter Patient Instructions * Attachments The following attachments cannot be sent through Care Everywhere. * Diverticulosis (Albanian) * Diverticulosis and Diverticulitis: General Info (Albanian) * Acid-Reducing Medicines: General Info (Albanian) * GERD (Albanian) * Abdominal Pain (Albanian) * Proctitis (Albanian) * Dysuria (Albanian) documented in this encounter Ordered Prescriptions Prescription Sig Dispensed Refills Start Date End Da te sdbdsmrce-evmjvfqn-qowkn -w.pet (Preparation H Maximum Strength) 0.25-1 % cream Insert 0.0385 each into the rectum 2 (two) times a day if needed (rectal irritation). 60 g 6 04/12/2024 famotidine (Pepcid) 20 mg tablet Take 1 tablet (20 mg total) by mouth 2 (two) times a day if needed for heartburn. 60 each 04/12/2024 04/12/2025 pantoprazole (PROTONIX) 40 mg EC tablet Take 1 tablet (40 mg total) by mouth 1 (one) time each day. Take in am on empty stomach wait 30 mins and then eat to activate the medication 30 each 04/12/2024 metroNIDAZOLE (FLAGYL) 500 mg tablet Take 1 tablet (500 mg total) by mouth 2 (two) times a day for 14 days. Do not use mouth wash or consume alcohol until 48 hours after last dose 28 each 04/12/2024 04/26/2024 ciprofloxacin (CIPRO) 500 mg tablet Take 1 tablet (500 mg total) by mouth 2 (two) times a day for 14 days. 28 each 04/12/2024 04/26/2024 documented in this encounter Progress Notes * ADRYAN Jensen - 04/12/2024 1:20 PM EST Patient seen in follow up from recent er visit in [facility]. Was dxd with diverticulitis and was treated x 1 week with augmentin. Patient reports that she is still having LLQ pain very similar to the pain she had in dec. IS also having pressure in her bladder and will perform urinalysis. Patient also remarks that she is having rectal burning and will order preparation h for relief. Patient also noted to have elevated liver enzymes in [facility] and will repeat. Her cholesterol is only very slightly elevatedand unsure of why the enzymes are elevated. Will perform labs and be in touch. It may have been dueto tylenol so willb e in touch with results * ADRYAN Jensen - 04/12/2024 1:20 PM EST DENTIFIER: Nila Banks is a 63 y.o. old female who presents to the gastroenterology department today for re-evaluation of lower abdominal discomfort, history of UTI, elevated liver enzymes. HPI: 63-year-old female seen in follow up from recent er visit in [facility]. Patient is accompanied by her significant other Was dxd with diverticulitis and was treated x 1 week with augmentin. Patient reports that she is still having LLQ pain very similar to the pain she had in dec. IS also having pressure in her bladder and will perform urinalysis as her fullness is felt right inthe middle of her lower abdomen. Patient also remarks that she is having rectal burning but no discharge and will order preparation h for relief. Patient also noted to have elevated liver enzymes in Dec and will repeat. Her cholesterol is only very slightly elevated and unsure of why the enzymes are elevated Will perform labs and be in touch. It may have been due to tylenol that she was taking large amounts for the abdominal pain so willb e in touch with results ROS: GENERAL: No malaise, significant weight loss or fever HEENT: No changes in hearing or vision, nose bleeds or swallowing problems NECK: No lumps, goiter, pain or significant neck swelling RESPIRATORY: No cough, wheezing or shortness of breath CARDIOVASCULAR: No chest pain, leg swelling or palpitations GI: Positive for diverticulitis, lower abdominal discomfort, bladder pressure, rectal irritation, elevated liver enzymes MUSCULOSKELETAL: No joint pain or swelling, back pain, or muscle pain. SKIN: No lesions, rash or itching The remainder of the review of systems is reviewed and negative. PAST MEDICAL HISTORY: Patient Active Problem List [...] Outpatient Medications Marked as Taking for the 04/12/24 encounter (Office Visit) with ADRYAN Jensen Medication Sig Dispense Refill acetaminophen (TYLENOL 8 [...] LORazepam (ATIVAN) 0.5 mg tablet JENNYFER LOONEY risperiDONE (RisperDAL) 2 mg tablet JENNYFER LOONEY venlafaxine XR (EFFEXOR-XR) 150 mg 24 hr capsule 150 mg. 1 Tab daily [DISCONTINUED] pantoprazole (PROTONIX) 40 mg EC tablet TAKE 1 TABLET TWICE A DAY BEFORE MEALS ON EMPTY STOMACH WAIT 30 MINS THEN EAT TO ACTIVATE MEDICATION ALLERGIES: @ALL@ PHYSICAL EXAM: Visit Vitals BP (!) 144/78 Pulse 70 Ht 1.6 m (63 ) Wt 68 kg (150 lb) BMI 26.57 kg/m?? Smoking Status Former BSA 1.71 m?? APPEARANCE: Alert and in no acute distress EYES: PERRLA, conjunctiva and sclera normal. MOUTH/THROAT: no erythema or exudates NECK: Neck supple, no adenopathy HEART: RRR with normal S1 and S2, no murmurs appreciated LUNG: clear to auscultation LYMPH NODES: grossly normal ABDOMEN: Soft, nontender, normal active bowel sounds throughout, no organomegaly RECTAL: Exam deferred. EXTREMITIES: Extremities warm and well perfused SKIN: Skin color, texture, turgor normal. LABS: Lab Results Component Value Date WBC 8.4 04/12/2024 WBC 5.5 03/23/2024 HGB 13.7 04/12/2024 HGB 12.4 03/23/2024 HCT 42.7 04/12/2024 HCT 38.4 03/23/2024 MCV 93.6 04/12/2024 MCV 91.4 03/23/2024 PLT 300 04/12/2024 PLT 269 03/23/2024 NA 139 04/12/2024 NA 140 03/23/2024 K 4.9 04/12/2024 K 4.1 03/23/2024 CL 107 04/12/2024 CL 110 03/23/2024 CO2 27 04/12/2024 CO2 27 03/23/2024 GLUCOSE 88 04/12/2024 GLUCOSE 105 (H) 03/23/2024 BUN 24 04/12/2024 BUN 15 03/23/2024 CREATININE 0.91 04/12/2024 CREATININE 1.03 03/23/2024 CALCIUM 9.6 04/12/2024 CALCIUM 9.3 03/23/2024 PROT 8.2 (H) 04/12/2024 PROT 7.8 03/23/2024 ALBUMIN 4.3 04/12/2024 ALBUMIN 3.7 03/23/2024 BILITOT 0.4 04/12/2024 BILITOT 0.4 04/12/2024 BILITOT 0.4 03/23/2024 AST 27 04/12/2024 AST 99 (H) 03/23/2024 ALT 67 (H) 04/12/2024 ALT 309 (H) 03/23/2024 ALKPHOS 103 04/12/2024 ALKPHOS 175 (H) 03/23/2024 EGFR 71 04/12/2024 EGFR 61 03/23/2024 Lab Results Component Value Date IRON 90 04/12/2024 FERRITIN 93 04/12/2024 LIPASE 63 03/23/2024 IMAGING: CT Abdomen Pelvis w Contrast Narrative: CT Abdomen and Pelvis W Contrast COMPARISON: US/[place] - US ABD LIMITED - 03/24/24 00:17 EST FINDINGS: Mild cardiomegaly. Normal liver. Normal spleen. Normal kidneys. Normal adrenal glands. Normal pancreas. No visible cholelithiasis. No biliary dilation. Colonic diverticulosis. Thickening of the cabrera of the distal sigmoid colon in an area of diverticular disease, with mild adjacent fat stranding. No evidence of bowel obstruction. Normal appendix. Unremarkable bladder. Status post hysterectomy. No ascites. No pneumoperitoneum. No lymphadenopathy. No acute fracture. No abdominal aortic aneurysm. Impression: Findings consistent with uncomplicated sigmoid diverticulitis. Nonemergent/incidental findings above. This document has been electronically signed by: Darien Santo MD on 03/24/2024 02:59:42 US Abdomen Limited Narrative: US Abdomen Limited, Right Upper Quadrant COMPARISON: None FINDINGS: No cholelithiasis. No gallbladder wall thickening. No pericholecystic fluid. Negative sonographic Calvo sign. No bile duct dilation. Common bile duct measures 4 mm in diameter. The visualized pancreas is unremarkable. Liver normal size and echotexture. Right kidney: 10.2 cm in length. No hydronephrosis. No visible urolithiasis. The visualized IVC is unremarkable. No ascites. Impression: No acute findings. This document has been electronically signed by: Darien Santo MD on 03/24/2024 01:07:36 CT Results for orders placed during the hospital encounter of 03/24/24 CT Abdomen Pelvis w Contrast Narrative CT Abdomen and Pelvis W Contrast COMPARISON: US/WY - US ABD LIMITED - 03/24/24 00:17 EST FINDINGS: Mild cardiomegaly. Normal liver. Normal spleen. Normal kidneys. Normal adrenal glands. Normal pancreas. No visible cholelithiasis. No biliary dilation. Colonic diverticulosis. Thickening of the cabrera of the distal sigmoid colon in an area of diverticular disease, with mild adjacent fat stranding. No evidence of bowel obstruction. Normal appendix. Unremarkable bladder. Status post hysterectomy. No ascites. No pneumoperitoneum. No lymphadenopathy. No acute fracture. No abdominal aortic aneurysm. Impression Findings consistent with uncomplicated sigmoid diverticulitis. Nonemergent/incidental findings above. This document has been electronically signed by: Darien Santo MD on 03/24/2024 02:59:42 US Results for orders placed during the hospital encounter of 03/24/24 US Abdomen Limited Narrative US Abdomen Limited, Right Upper Quadrant COMPARISON: None FINDINGS: No cholelithiasis. No gallbladder wall thickening. No pericholecystic fluid. Negative sonographic Calvo sign. No bile duct dilation. Common bile duct measures 4 mm in diameter. The visualized pancreas is unremarkable. Liver normal size and echotexture. Right kidney: 10.2 cm in length. No hydronephrosis. No visible urolithiasis. The visualized IVC is unremarkable. No ascites. Impression No acute findings. This document has been electronically signed by: Darien Santo MD on 03/24/2024 01:07:36 IMPRESSION: 1. Diverticulosis 2. H/O diverticulitis of colon 3. LLQ pain 4. Elevated liver enzymes 5. Gastroesophageal reflux disease without esophagitis 6. Rectal irritation PLAN: 1. Diverticulosis, history of recent episode of diverticulitis, left lower quadrant pain, elevated liver enzymes, GERD, rectal irritation Patient has been seen in the past for dyspepsia. More recently she had been seen at the ER for abdominal pain and had been diagnosed with diverticulitis and given 1 week of Augmentin. She states thatshe really did not feel that the infection had cleared up. She had undergone a colonoscopy in June 2021 noting left lower quadrant pain, internal hemorrhoidsgrade 1 and 1 tubular adenoma removed from the transverse colon with a suggested 5-year repeat. Due to the fact she is still having this left lower quadrant pain and does not feel that the infection has cleared, patient is to perform labs and CT and we will be in touch with her in regards to results. Patient is also noted to have elevated liver enzymes with AST at 99 and ALT at 309. She does admit she has been taking Tylenol and we will repeat the labs. Her CBC was noted to be normal. Patient has undergone a CT and [place] that she had diverticulitis at that time. Patient may need tohave a referral to surgery if she continues to have these infections. If the CT that she undergoes does note that she has diverticulitis, she will be treated accordingly. If her liver enzymes remain elevated, then other labs to rule out hepatitis or autoimmune hepatitiswill need to be drawn I will be in touch with her in regards to results Total time of today's encounter is 37 minutes in preparing to see the patient, reviewing labs, diagnostic studies as well as other provider notes, documenting in charting, creating an HPI, performinga medically appropriate exam, counseling patient as well as prescribing medication. There was documentation in EMR after visit. None of which time was spent performing separately billable procedures o r ancillary services. Much appreciation for allowing us to participate in patient's care Orders Placed This Encounter Procedures CT Abdomen Pelvis w Contrast CBC and differential Comprehensive metabolic panel Lipid panel with reflex to direct LDL Ferritin Iron Urinalysis with reflex microscopic and culture ADDITIONAL ORDERS: CT ABDOMEN PELVIS W CONTRAST ADRYAN Jensen documented in this encounter Plan of Treatment Upcoming Encounters Date Type Department Care Team (Late st Contact Info) Description 05/22/2024 11:00 AM EST Office Visit Gastroenterology - [place] 175 [facility] 175 [facility] [address] [place] [address] Andrew Nino PA 175 [facility] [address] [place] [address] 06/03/2024 2:10 PM EDT Appointment Radiology Department - [address] [phone] 07/09/2024 2:00 PM EDT Office Visit Urogynecology - [address] [phone] Kym Christine MD [address] [place] [address] [address] [place] [address] 07/18/2024 3:00 PM EDT Office Visit [facility] - [address] [phone] Daphne Almanza MD [address] [place] [address] documented as of this encounter Results * CT Abdomen Pelvis w Contrast (04/26/2024 4:58 PM EST) Anatomical Region Laterality Modality Body Computed Tomogra phy 04/26/2024 5:11 PM EST Impressions 04/26/2024 5:[address] correlate for left lower quadrant pain. Incidental findings as above. -------- FINAL REPORT -------- Dictated By: Evon Sargent Dictated Date: 04/26/2024 17:11 ET Assigned Physician: Evon Sargent Reviewed and Electronically Signed By: Evon Sargent Signed Date: 04/26/2024 17:15 ET Workstation ID: [id number] Transcribed By: Self Edit Transcribed Date: 04/26/2024 [...] Dictated Date: 04/26/2024 17:11 ET Assigned Physician: Evno Sargent Reviewed and Electronically Signed By: Evon Sargent Signed Date: 04/26/2024 17:15 ET Workstation ID: [id number] Transcribed By: Self Edit Transcribed Date: 04/26/2024 17:11 ET Andrew CORNELIUS IMG CT PROCEDURES * Iron (04/12/2024 2:15 PM EST) [facility] Iron 90 40 - 150 mcg/dL LAB CHEMISTRY METHOD 04/12/2024 10:[address] [facility] Blood Venous blood specimen / Unknown Venipuncture / Unknown 04/12/2024 2:15 PM EST 04/12/2024 2:15 PM EST Andrew CORNELIUS LAB BLOOD ORDERABLES [facility] [address] [place] [address], * Ferritin (04/12/2024 2:15 PM EST) [facility] Ferritin 93 8 - 252 ng/mL LAB CHEMISTRY METHOD 04/12/2024 10:[address] [facility] Blood Venous blood specimen / Unknown Venipuncture / Unknown 04/12/2024 2:15 PM EST 04/12/2024 2:15 PM EST Andrew CORNELIUS LAB BLOOD ORDERABLES [facility] [address] [place] [address], * (ABNORMAL) Lipid panel with reflex to direct LDL (04/12/2024 2:15 PM EST) Cholesterol 210(H) 0 - 200 mg/dL LAB CHEMISTRY METHOD 04/12/2024 10:[address] [facility] Triglycerides 153(H) 0 - 150 mg/dL LAB CHEMISTRY METHOD 04/12/2024 10:[address] [facility] HDL 46 >=40 mg/dL LAB CHEMISTRY METHOD 04/12/2024 10:[address] [facility] LDL Calculated 133(H) 0 - 100 mg/dL LAB CHEMISTRY METHOD 04/12/2024 10:[address] [facility] VLDL Cholesterol Abdiel 30.6 mg/dL LAB CHEMISTRY METHOD 04/12/2024 10:[address] [facility] Non HDL Chol. (LDL+VLDL) 164(H) <145 mg/dL LAB CHEMISTRY METHOD 04/12/2024 10:[address] [facility] Chol/HDL Ratio 4.6(H) 0.0 - 4.4 LAB CHEMISTRY METHOD 04/12/2024 10:21 PM [facility] Blood Venous blood specimen / Unknown Venipuncture / Unknown 04/12/2024 2:15 PM EST 04/12/2024 2:15 PM EST Andrew CORNELIUS LAB BLOOD ORDERABLES [facility] [address] [place] [address], [place] [phone] * (ABNORMAL) Comprehensive metabolic panel (04/12/2024 2:15 PM EST) Sodium 139 133 - 145 mmol/L LAB CHEMISTRY METHOD 04/12/2024 10:21 PM [facility] Potassium 4.9 3.5 - 5.5 mmol/L LAB CHEMISTRY METHOD 04/12/2024 10:21 PM [facility] Chloride 107 96 - 110 mmol/L LAB CHEMISTRY METHOD 04/12/2024 10:21 PM [facility] CO2 27 21 - 32 mmol/L LAB CHEMISTRY METHOD 04/12/2024 10:21 PM [facility] Anion Gap 5 3 - 11 LAB CHEMISTRY METHOD 04/12/2024 10:21 PM [facility] Glucose 88 70 - 100 mg/dL LAB CHEMISTRY METHOD 04/12/2024 10:21 PM [facility] BUN 24 5 - 25 mg/dL LAB CHEMISTRY METHOD 04/12/2024 10:21 PM [facility] Creatinine 0.91 0.50 - 1.10 mg/dL LAB CHEMISTRY METHOD 04/12/2024 10:21 PM [facility] eGFR 71 >=60 mL/min/1. 73m2 LAB CHEMISTRY METHOD 04/12/2024 10:21 PM [facility] Comment:Calculation based on the??Chronic Kidney Disease Epidemiology Collaboration (CKD-EPI) equation refit??without adjustment for race. BUN/Creatinine Ratio 26.4 LAB CHEMISTRY METHOD 04/12/2024 10:21 PM [facility] Calcium 9.6 8.5 - 10.5 mg/dL LAB CHEMISTRY METHOD 04/12/2024 10:21 PM [facility] AST (SGOT) 27 10 - 42 unit/L LAB CHEMISTRY METHOD 04/12/2024 10:21 PM [facility] ALT (SGPT) 67(H) 10 - 60 unit/L LAB CHEMISTRY METHOD 04/12/2024 10:21 PM [facility] Alkaline Phosphatase 103 42 - 121 unit/L LAB CHEMISTRY METHOD 04/12/2024 10:21 PM [facility] Total Protein 8.2(H) 6.0 - 8.0 g/dL LAB CHEMISTRY METHOD 04/12/2024 10:[address] [facility] Albumin 4.3 3.2 - 5.0 g/dL LAB CHEMISTRY METHOD 04/12/2024 10:21 PM [facility] Total Bilirubin 0.4 0.0 - 1.4 mg/dL LAB CHEMISTRY METHOD 04/12/2024 10:21 PM [facility] Blood Venous blood specimen / Unknown Venipuncture / Unknown 04/12/2024 2:15 PM EST 04/12/2024 2:15 PM EST Andrew CORNELIUS LAB BLOOD ORDERABLES [facility] [address] [place] [address], documented in this encounter Visit Diagnoses Diagnosis Diverticulosis- Primary Diverticulosis of colon (without mention of hemorrhage) H/O diverticulitis of colon LLQ pain Abdominal pain, left lower quadrant Elevated liver enzymes Other nonspecific abnormal serum enzyme levels Gastroesophageal reflux disease without esophagitis Esophageal reflux Rectal irritation Other specified disorder of rectum and anus Diverticulosis Diverticulosis of colon (without mention of [...] Discontinue Reason Start Date End Da te pantoprazole (PROTONIX) 40 mg EC tablet TAKE 1 TABLET TWICE A DAY BEFORE MEALS ON EMPTY STOMACH WAIT 30 MINS THEN EAT TO ACTIVATE MEDICATION 06/17/2023 04/12/2024 documented as of this encounter Care Teams Licensed Prosthetist Relationship Specialty Start Date End Date Daphne Almanza MD [address] [place] [address] PCP - General Internal Medicine 11/30/13 documented as of this encounter
--- OUTSIDE RECORDS SUMMARY | 2024-05-01 09:58 | XMS_ITS | Encounter Summary ---
Author Organization [facility] Address [address] [place] [address] Care Team Providers Care Rn Acls Name Role Phone Daphne Almanza MD Primary Care Provider [phone] Daphne Almanza MD Unavailable [phone] Reason for Visit * Reason Onset Date Comments lab test 09/01/2016 Encounter Details Date Type Department Care Team Description 09/01/2016 Telephone Adult Medicine [address] [address] Kyara Doty NP lab test Social History Tobacco Use Types Packs/Day Years Used Date Smoking Tobacco: Former Cigarettes 0.5 32 Q uit: 08/13/2008 Alcohol Use Standard Drinks/Week Comments No 0 (1 standard drink = 0.6 oz pur e alcohol) Sex Assigned at Date Recorded Not on file Job Start Date Occupation Industry Not on file Not on file Not on file documented as of this encounter Miscellaneous Notes * Telephone Encounter - Cathie Hathaway M.A. - 09/01/2016 8:33 AM EDT Message left for patient to return my call. A lab order will be mailed to the pts home from the practicing urologist office ( Ron [place]) This lab order needs to be done at a [facility] lab. It is checking for H pylori. documented in this encounter Plan of Treatment Not on file documented as of this encounter Visit Diagnoses Not on filedocumented in this encounter Care Teams Rn Acls Relationship Specialty Start Date End Date Daphne Almanza MD [address] [place] [id number] PCP - General Internal Medicine 07/31/15 Daphne Almanza MD [address] [place] [id number] 07/29/15 documented as of this encounter
--- OUTSIDE RECORDS SUMMARY | 2024-05-01 09:58 | XMS_ITS | Encounter Summary ---
Author Organization [facility] Address [address] [place] [address] Care Team Providers Care Erecting Engineer Name Role Phone Daphne Almanza MD Primary Care Provider [phone] Daphne Almanza MD Unavailable [phone] Encounter Details Date Type Department Care Team Description 01/18/2017 Transfer Records Medical Records [address] [place] [id number] Abstract, Provider Social History Tobacco Use Types [...] on filedocumented in this encounter Care Teams Erecting Engineer Relationship Specialty Start Date End Date Daphne Almanza MD [address] [place] [address] [phone] PCP - General Internal Medicine 07/31/15 Daphne Almanza MD [address] [place] [address] [phone] 07/29/15 documented as of this encounter
--- OUTSIDE RECORDS SUMMARY | 2024-05-01 09:58 | XMS_ITS | Encounter Summary ---
Author Organization [facility] Address [address] [place] [address] Care Team Providers Care Excel Analyst Name Role Phone Daphne Almanza MD Primary Care Provider [phone] Daphne Almanza MD Unavailable [phone] Encounter Details Date Type Department Care Team Description 09/16/2016 Orders Only Gastroenterology - [address] [address] Ron Branch PA-C Epigastric abdominal pain Social History Tobacco Use Types Packs/Day [...] Procedure Name Priority Date/Time Associated Diagnosis Comments CHG HPYLORI BREATH ANAL UREASE ACT NON-RADACT ISTOPE Routine 09/07/2016 Epigastric abdominal pain documented in this encounter Results * H PYLORI BREATH TEST ANALYSIS (09/07/2016) 09/07/2016 Ron Branch PA-C LAB [employer] documented in this encounter Visit Diagnoses Diagnosis Epigastric abdominal pain Abdominal pain, epigastric documented in this encounter Care Teams Excel Analyst Relationship Specialty Start Date End Date Daphne Almanza MD [address] [place] [id number] PCP - General Internal Medicine 07/31/15 Daphne Almanza MD [address] [place] [phone] 07/29/15 documented as of this encounter
--- OUTSIDE RECORDS SUMMARY | 2024-05-01 09:58 | XMS_ITS | Encounter Summary ---
Author Organization [facility] Address [address] [facility] [place] [address] Care Team Providers Care Automobile Upholstery Trim Installer Name Role Phone Daphne Almanza MD Primary Care Provider [phone] Daphne Almanza MD Unavailable [phone] Encounter Details Date Type Department Care Team Description 09/13/2016 Transfer Records Medical Records [address] [place] [id number] Abstract, Provider Social History Tobacco Use Types [...] on filedocumented in this encounter Care Teams Automobile Upholstery Trim Installer Relationship Specialty Start Date End Date Daphne Almanza MD [address] [place] [address] [phone] PCP - General Internal Medicine 07/31/15 Daphne Almanza MD [address] [place] [address] [phone] 07/29/15 documented as of this encounter
--- OUTSIDE RECORDS SUMMARY | 2024-05-01 09:58 | XMS_ITS | Encounter Summary ---
Author Organization [facility] Address [address] [place] [address] Care Team Providers Care Regional Sales Trainer Name Role Phone Daphne Almanza MD Primary Care Provider Daphne Almanza MD Unavailable [phone] Encounter Details Date Type Department Care Team Description 09/15/2017 Orders Only Adult Medicine [address] [phone] Mavis Osborn PA-C [address] [place] [address] [id number] Social History Tobacco Use Types Packs/Day Years Used Date Smoking Tobacco: Former Cigarettes 0.5 32 Q uit: 08/13/2008 Smokeless Tobacco: Never Alcohol Use Standard Drinks/Week [...] on filedocumented in this encounter Care Teams Regional Sales Trainer Relationship Specialty Start Date End Date Daphne Almanza MD [address] [place] [address] [phone] PCP - General Internal Medicine 07/31/15 Daphne Almanza MD [address] [place] [address] 07/29/15 documented as of this encounter
--- OUTSIDE RECORDS SUMMARY | 2024-05-01 09:58 | XMS_ITS | Encounter Summary ---
Author Organization [facility] Address [address] [place] [address] Care Team Providers Care Awning Hanger Supervisor Name Role Phone Daphne Almanza MD Primary Care Provider [phone] Daphne Almanza MD Unavailable [phone] Reason for Visit * Reason Onset Date Comments refill request 2019 Encounter Details Date Type Department Care Team Description 2019 Refill Adult Medicine [facility] [address] [place] [address] [phone] Daphne Almanza MD [address] [place] [phone] refill request Social History Tobacco Use Types [...] encounter Miscellaneous Notes * Telephone Encounter - Isabel Carroll C.M.A. - 11/14/2019 8:47 AM EDT Message left for patient to return my call. See below * Telephone Encounter - Daphne Almanza MD - 2019 4:13 PM EDT She needs to be seen before script will be sent; she can obtain OTC * Telephone Encounter - Isabel Carroll C.M.A. - 2019 3:18 PM EDT Lv 07/23/19 - swallowing problems No showed 11/04/19 and 11/11/19 * Telephone Encounter - Parth Cedeño - 2019 3:02 PM EDT Patient would like script to be: E-PRESCRIBED/FAXED TO PHARMACY WHEN WAS THE PATIENT'S LAST APPOINTMENT IN ADULT MEDICINE? 07/23/2019 WHEN WAS THE LAST TIME THE PATIENT SAW THEIR PCP? 03/26/19 Does patient have an upcoming appointment? No-unable to reach left [facility] to call for appointment due to refill request. Appt due (THE MEDICATION REQUESTED IS ON THE MED LIST ABOVE) All of the medications requested were on the CURRENT MEDS list Did you check the Pharmacy information above?: YES Patient wants: 90 -day supply Is this a mail order prescription request ? NO If the refill is from a FAXED refill request what is the RX # listed on the fax? N/A Patients current insurance carrier is: Payor: [employer] FFS / Plan: [employer] / Product Type: MEDICAID RISK documented in this encounter Plan of Treatment Not on file documented as of this encounter Visit Diagnoses Not on filedocumented in this encounter Care Teams Awning Hanger Supervisor Relationship Specialty Start Date End Date Daphne Almanza MD [address] [place] [phone] PCP - General Internal Medicine 07/31/15 Daphne Almanza MD [address] [place] [address] 07/29/15 documented as of this encounter
--- OUTSIDE RECORDS SUMMARY | 2024-05-01 09:58 | XMS_ITS | Encounter Summary ---
Author Organization [facility] Address [address] [place] [address] Care Team Providers Care Speck Dyer Name Role Phone Daphne Almanza MD Primary Care Provider [phone] Daphne Almanza MD Unavailable [phone] Encounter Details Date Type Department Care Team Description 02/07/2017 Orders Only Adult Medicine [facility] [address] [place] [address] [phone] Mavis Osborn PA-C [address] [place], [place] [phone] Dysphagia, unspecified type Social History Tobacco Use Types Packs/Day Years [...] Name Priority Date/Time Associated Diagnosis Comments CHG RADIOLOGIC EXAM ESOPHAGUS SINGLE CONTRAST STUDY Routine 01/31/2017 Dysphagia, unspecified type documented in this encounter Results * BARIUM SWALLOW (01/31/2017) Mavis Osborn PA-C RADIOLOGY documented in this encounter Visit Diagnoses Diagnosis Dysphagia, unspecified type documented in this encounter Care Teams Speck Dyer Relationship Specialty Start Date End Date Daphne Almanza MD [address] [place] [address] PCP - General Internal Medicine 07/31/15 Daphne Almanza MD [address] [place] [address] 07/29/15 documented as of this encounter
--- OUTSIDE RECORDS SUMMARY | 2024-05-01 09:58 | XMS_ITS | Encounter Summary ---
Author Organization [facility] Address [address] [place] [address] Care Team Providers Care Cartoonist Special Effects Name Role Phone Daphne Almanza MD Primary Care Provider [phone] Daphne Almanza MD Unavailable [phone] Encounter Details Date Type Department Care Team Description 09/25/2017 Fondant Machine Operator Report Medical Records [address] [place] [id number] Abstract, Provider Social History Tobacco Use Types [...] on filedocumented in this encounter Care Teams Cartoonist Special Effects Relationship Specialty Start Date End Date Daphne Almanza MD [address] [place] [address] [phone] PCP - General Internal Medicine 07/31/15 Daphne Almanza MD [address] [place] [address] [phone] 07/29/15 documented as of this encounter
--- OUTSIDE RECORDS SUMMARY | 2024-05-01 09:58 | XMS_ITS | Encounter Summary ---
Author Organization [facility] Address [address] [facility] [place] [address] Care Team Providers Care Stitching Machine Operator Name Role Phone Daphne Almanza MD Primary Care Provider [phone] Daphne Almanza MD Unavailable [phone] Encounter Details Date Type Department Care Team Description 04/04/2022 Personal Counselor Report Medical Records [address] [place] [id number] Victor Hugo Mckeon PA Social History Tobacco [...] suspected to have Coronavirus/COVID-19? No / Unsure 03/23/2022 2:46 PM EST documented as of this encounter Plan of Treatment Not on file documented as of this encounter Visit Diagnoses Not on filedocumented in this encounter Care Teams Stitching Machine Operator Relationship Specialty Start Date End Date Daphne Almanza MD [address] [place] [address] PCP - General Internal Medicine 07/31/15 Daphne Almanza MD [address] [place] [address] 07/29/15 documented as of this encounter
--- OUTSIDE RECORDS SUMMARY | 2024-05-01 09:58 | XMS_ITS | Encounter Summary ---
Author Organization [facility] Address [address] [place] [address] Care Team Providers Care Latex Caster Name Role Phone Daphne Almanza MD Primary Care Provider [phone] Daphne Almanza MD Unavailable [phone] Encounter Details Date Type Department Care Team Description 08/15/2019 Transfer Records Medical Records [address] [place] [id number] Abstract, Provider Social History Tobacco Use Types [...] on filedocumented in this encounter Care Teams Latex Caster Relationship Specialty Start Date End Date Daphne Almanza MD [address] [place] [address] PCP - General Internal Medicine 07/31/15 Daphne Almanza MD [address] [place] [address] [phone] 07/29/15 documented as of this encounter
--- OUTSIDE RECORDS SUMMARY | 2024-05-01 09:58 | XMS_ITS | Clinical Summary ---
Author Organization [facility] [address] [facility] Address [address] [facility] Phone Care Team Providers Care Operations Research Manager Name Role Phone Daphne Almanza MD Primary Care Provider Allergies Active Allergy Reactions Criticality Noted Date Comments Aspirin 08/14/2015 GI upset with this and Motrin Pineapple 09/30/2020 Throat discomfort with fresh pineapple- oral allergy syndrome Medications Medication Sig Dispensed Refills Start Date End Date Status fluticasone propionate (FLONASE) 50 mcg/actuation nasal spray INSTILL 1 SPRAY INTO EACH NOSTRIL TWICE A DAY. 48 mL 5 02/28/2024 Active azelastine (ASTELIN) 137 mcg (0.1 %) nasal spray INSTILL 2 SPRAYS INTO EACH NOSTRIL TWICE A DAY DIRECTED 30 mL 5 02/28/2024 Active acetaminophen (TYLENOL 8 HOUR) 650 mg 8 hr tablet TOME CHARLES TABLETA DOS VECES AL AYAZ 06/16/2023 Active busPIRone (BUSPAR) 30 mg tablet TOME CHARLES TABLETA DOS VECES AL D A 11/19/2022 Active eszopiclone (LUNESTA) 2 mg tablet JENNYFER LOONEY GARRISON 11/14/2022 Active famotidine (PEPCID) 20 mg tablet Take 1 Tablet by mouth 2 times daily as needed for Heartburn. 02/23/2023 Active fexofenadine (LUANA) 180 mg tablet Take 1 tablet by mouth daily. 02/23/2021 Active gabapentin (NEURONTIN) 100 mg capsule PLEASE SEE ATTACHED FOR DETAILED DIRECTIONS 12/07/2021 Active LORazepam (ATIVAN) 0.5 mg tablet JENNYFER LOONEY 12/28/2022 Active risperiDONE (RisperDAL) 2 mg tablet JENNYFER LOONEY 07/22/2015 Active venlafaxine XR (EFFEXOR-XR) 150 mg 24 hr capsule 150 mg. 1 Tab daily 07/22/2015 Active albuterol HFA (ProAir HFA) 90 mcg/actuation inhaler Take 2 Puffs by mouth every 4 hours as needed for Cough or Wheezing. 2 Puffs every 4 hours as needed 02/06/2023 Active pantoprazole (PROTONIX) 40 mg EC tablet Take 1 tablet (40 mg total) by mouth 1 (one) time each day. Take in am on empty stomach wait 30 mins and then eat to activate the medication 30 each 04/12/2024 Active famotidine (Pepcid) 20 mg tablet Take 1 tablet (20 mg total) by mouth 2 (two) times a day if needed for heartburn. 60 each 11 04/12/2024 04/12/19 26 Active Additional Information Patient not taking.Reported on 04/25/2024 phenyleph-pramo sharda-glycr-w.pet (Preparation H Maximum Strength) 0.25-1 % cream Insert 0.0385 each into the rectum 2 (two) times a day if needed (rectal irritation). 60 g 6 04/12/2024 Active Additional Information Patient not taking.Reported on 04/25/2024 hydrocortisone (Preparation H Hydrocortisone) 1 % topical cream Apply topically 2 (two) times a day. 30 g 11 04/12/2024 04/12/19 26 Active aluminum-magnes ium hydroxide-simet hicone (Antacid-Antiga s) 200-200-20 mg/5 mL suspension TAKE 15 ML BY MOUTH 4 TIMES DAILY (BEFORE MEALS AND NIGHTLY). 04/05/2021 04/02/19 25 Discontinued(The rapy completed) cyclobenzaprine (FLEXERIL) 10 mg tablet Take 1 Tablet by mouth 3 times daily as needed for Muscle spasms. 12/08/2023 04/02/19 25 Discontinued(The rapy completed) docusate sodium (COLACE) 100 mg capsule Take 1 Capsule by mouth 2 times daily. 07/20/2021 04/02/19 25 Discontinued(The rapy completed) ondansetron (ZOFRAN) 4 mg tablet Take 1 Tablet by mouth every 8 hours as needed for Nausea for up to 7 days. 06/13/2023 04/02/19 Discontinued(The rapy completed) pantoprazole (PROTONIX) 40 mg EC tablet TAKE 1 TABLET TWICE A DAY BEFORE MEALS ON EMPTY STOMACH WAIT 30 MINS THEN EAT TO ACTIVATE MEDICATION 06/17/2023 04/12/19 25 Discontinued polyethylene glycol (MIRALAX) 17 gram packet Take 1 Packet by mouth daily. 07/20/2021 04/02/19 Discontinued(The rapy completed) psyllium (Daily Fiber, psyllium-aspart ,) 3.4 gram packet Take 1 Packet by mouth daily. 07/20/2021 04/02/19 Discontinued(The rapy completed) simethicone (MYLICON) 125 mg chewable tablet Take 1 Tab by mouth every 6 hours as needed for Flatulence. 12/30/2019 04/02/19 25 Discontinued(The rapy completed) ciprofloxacin (CIPRO) 500 mg tablet Take 1 tablet (500 mg total) by mouth 2 (two) times a day for 14 days. 28 each 04/12/2024 04/26/19 25 metroNIDAZOLE (FLAGYL) 500 mg tablet Take 1 tablet (500 mg total) by mouth 2 (two) times a day for 14 days. Do not use mouth wash or consume alcohol until 48 hours after last dose 28 each 04/12/2024 04/26/19 25 dicyclomine (BENTYL) 20 mg tablet Take 1 tablet (20 mg total) by mouth 2 (two) times a day for 10 days. 20 tablet 04/18/2024 04/28/19 25 traMADoL (ULTRAM) 50 mg tablet Take 1 tablet (50 mg total) by mouth every 6 (six) hours if needed for severe pain for up to 3 days. Max Daily Amount: 200 mg 12 tablet 04/18/2024 04/21/19 25 Active Problems Problem Noted Date Diagnosed Date Pelvic pressure in female 04/25/2024 Assessment & Plan (04/25/2024 2:39 PM EST): I reviewed Nila's ED records. I counseled Nila that her exam is normal. She does have atrophy which can lead to irritative voiding sx, but not totally c/w her story. She was counseled that she may have passed a kidney stone that night and had irritation thereafter that has since almost resolved. I recommended she continue to monitor if not improving, can return. Diverticulosis 03/08/2024 Rectal pain 03/08/2024 Seasonal allergies 03/08/2024 Gastroesophageal reflux disease 04/06/2022 Anxiety 04/06/2022 COVID-19 virus infection 11/30/2021 Overview (03/08/2024): 8.28.22 Chronic insomnia 07/13/2021 Hypersomnolence 07/13/2021 Snoring 07/13/2021 Obstructive sleep apnea 05/24/2021 Overview (03/08/2024): [facility] Home sleep test 05/13/2021; weight 155; BMI 27; AHI 6, AI 1, HI 5. 7 obstructive apneas, 1 central apnea and 31 hypopneas. Average oxygen saturation 95% with oxygen graciela 85%. Obstructive sleep apnea-mild with mostly hypopneas and some obstructive and central apneas without nocturnal hypoxemia based on 2021 home sleep test. Fibromyalgia 12/27/2019 Overview (03/08/2024): Dr. Padilla ([facility] [place] [facility]) Bilateral carpal tunnel syndrome 05/09/2018 Overview (03/08/2024): S/p release on left side only Overweight (BMI 25.0-29.9) 05/09/2018 Panic attack 05/09/2018 Overview (03/08/2024): Dr. Kumar at [facility] Right ovarian cyst 05/09/2018 Overview (03/08/2024): Last Assessment & Plan: Reviewed CT results from March 2021 with the patient. Discussed the cyst of the right ovary is very small and decreasing in size, which is reassuring. Discussed symptoms are not likely related to this small cyst. Hypertriglyceridemia 07/21/2017 Thyroid nodule 05/09/2017 Overview (03/08/2024): Apr 2017: right lobe with 0.7 cm nodule - annual sonogram recommended Anxiety and depression 08/14/2015 Overview (03/08/2024): Dr. Kumar at [facility] Asthma 08/14/2015 GERD (gastroesophageal reflux disease) 6 Encounters Date Type Department Care Team Description 04/30/2024 Telephone Gastroenterology [facility] 175 [facility] [address] [phone] Andrew Nino PA 04/29/2024 Telephone Gastroenterology [facility] 175 [facility] [address] [phone] Andrew Nino PA Medication Problem 04/26/2024 4:16 PM EST - 04/26/2024 11:59 PM EST Hospital Encounter [facility] CT Scan [address] [place] [phone] Diverticulosis; H/O diverticulitis of colon; LLQ pain; Elevated liver enzymes; Gastroesophageal reflux disease without esophagitis; Rectal irritation Discharge Disposition: Home or Self Care 04/25/2024 10:45 AM EST Office Visit Obstetrics and Gynecology [id number] [place] [phone] Maria Victoria Ellington MD Pelvic pressure in female (Primary Dx) 04/18/2024 7:25 AM EST - 04/18/2024 10:[address] [facility] Emergency [address] [place] [phone] Ralph Menard MD Vaginal pain (Primary Dx); Rectal pain Discharge Disposition: Home or Self Care 04/15/2024 3:00 PM EST Office Visit Adult Medicine [facility] [address] [place], [place] [phone] Stephanie Barragan PA Pelvic pressure in female (Primary Dx); Decreased GFR; Elevated LFTs; Diverticulitis; Rectal pain 04/12/2024 1:20 PM EST Office Visit Gastroenterology - [place] 175 [facility] 175 [facility] [address] [place] [phone] Andrew Nino PA Diverticulosis (Primary Dx); H/O diverticulitis of colon; LLQ pain; Elevated liver enzymes; Gastroesophageal reflux disease without esophagitis; Rectal irritation 04/11/2024 Telephone Adult Medicine [address] [phone] Daphne Almanza MD er follow up ([facility] /04/10/24) 04/08/2024 Telephone Obstetrics and Gynecology [address] [phone] Maria Victoria Ellington MD er follow up 04/02/2024 3:30 PM EST Office Visit Adult [address] [phone] Mavis Osborn PA Vaginal pain (Primary Dx); Elevated LFTs 04/02/2024 Telephone Obstetrics and Gynecology - [address] [phone] Maria Victoria Ellington MD 03/24/2024 12:06 AM EST - 03/24/2024 3:[address] [facility] Emergency [address] [place] [phone] Jaxson Mahan MD Diverticulitis (Primary Dx) Discharge Disposition: Home or Self Care 03/13/2024 Telephone Adult Medicine [address] [phone] Daphne Almanza MD Abdominal Pain; er follow up 03/11/2024 9:15 AM EST Ancillary Procedure [facility] [address] [facility] [address] [place] [phone] Chest pain, unspecified type 03/06/2024 Nurse Triage Adult Medicine [address] [phone] Daphne Almanza MD Abdominal Pain from Last 3 Months Immunizations Name Administration Dates Next Due Influenza Quadravalent, MDCK , 0.5ml, preservative free (Flucelvax) 6mo and older 02/06/2023,12/21/2021,03/04/2021,02/10 Influenza trivalent, 0.5mL, preservative free (Fluarix; FluLaval; Fluzone) ages 6mo and older (Afluria) 3 years and older 12/08/2023,03/10/2019,02/19/2013,01/12 Influenza trivalent, with pr eservative (Fluzone; Afluria) 6mo and older 05/11/2016,03/04/2015 [employer] SARS-CoV-2 COVID -19, vector-nr, rS-Ad26, preservative free 02/11/2021,06/19/2020 MMR, measles mumps and rubel la Live (Priorix; M-M-R II) 12mo and older 07/26/2011 Pneumococcal Conjugate Vacci ne, 7 Valent 12/19/2006 Pneumococcal polysaccharide 23 valent (Pneumovax 23) 2yo and older 05/09/2018 Td Tetanus diptheria (Tdvax) 7yo and older 05/09/2018 Tdap Tetanus diptheria acell ular pertussis (Boostrix; Adacel) 7yo and older 07/26/2011 Surgical History Surgery Date Site/Laterality Comments TUBAL LIGATION PROCEDURE: HISTORICAL TUBAL LIGATION ESOPHAGOGASTRODUODENOSCOPY 08/20/2015 PROCEDURE: [place] ESOPHAGOGASTRODUODENOSCOPY TRANSORAL DIAGNOSTIC; COMMENT: Dr. Rj pepper H/H o/w normal. COLONOSCOPY 04/20/2012 PROCEDURE: HISTORICAL COLONOSCOPY; COMMENT: [facility] - normal CARPAL TUNNEL RELEASE Left PROCEDURE: HISTORICAL CARPAL TUNNEL REL ESOPHAGOGASTRODUODENOSCOPY PROCEDURE: NC EGD TRANSORAL BIOPSY SINGLE/MULTIPLE; COMMENT: 08/[address] Ozuna HYSTERECTOMY PROCEDURE: HISTORICAL HYSTERECTOMY; COMMENT: fibroids and menorrhagia Medical History Medical History Date Comments Asthma 08/14/2015 DX:Asthma Anxiety 08/14/2015 DX:Anxiety GERD (gastroesophageal reflux disease) DX:GERD (gastroesophageal reflux disease) Thyroid nodule 05/09/2017 DX:Thyroid nodul e Seasonal allergies DX:Seasonal a llergies Postnasal drip DX:Postnasal dri p Globus sensation DX:Globus sensa tion Hiatal hernia DX:Hiatal hernia Rectal pain DX:Rectal pain Diverticulosis DX:Diverticulosi s Lower abdominal pain DX:Lower ab dominal pain Depressive disorder DX:Depressiv e disorder Hyperlipidemia DX:Hyperlipidemi a Constipation DX:Constipation Abdominal pain DX:Abdominal pilar n COVID-19 virus infection 11/30/2021 DX:COVI D-19 virus infection; COMMENT: 11.21.21 Choking DX:Choking Family History Medical History Relation Name Comments Breast cancer Aunt 1 maternal Breast cancer Aunt 2 maternal Heart attack Brother 1 s/p stenting Diabetes Brother 2 HLD x 3, HTN x 4 (total 6 brothers) Alcohol abuse Father ?pancreatic is sues Colon cancer Maternal Grandfather and pro state cancer Heart attack Maternal Grandmother diabete s, HLD Arthritis Mother Diabetes Mother stroke s/p brai n aneurysm (age 78), HTN, CAD, cataract, glaucoma Alcohol abuse Paternal Grandfather Suicide Attempts Paternal Grandmother Diabetes Sister 1 HLD Diabetes Uncle maternal HLD Blindness Neg Hx Macular degeneration Neg Hx Strabismus Neg Hx Relation Name Status Comments Aunt 1 maternal Aunt 2 maternal Alive Brother 1 Alive Brother 2 Alive Father Maternal Grandfather Maternal Grandmother Mother Paternal Grandfather Paternal Grandmother Sister 1 Alive Sister 2 Alive Uncle maternal Alive Social History Tobacco Use Types Packs/Day Years [...] for your loved ones. For example, child care director or elderly care for an older [...] file Not on file Not on file Obstetrics History Para Term AB IAB SAB Ectopic Multiple Livin g Live Births 10 8 8 2 2 7 8 Date Outcome GA Total Labor Labor/2nd/3rd Weight Sex Type Anes PTL Stacy A1 A5 Name Clin SAB SAB Living Term F Term Living Term Living Term Living Term Living Term Living Term Vag-S pont Living Term Vag-S pont Living Last Filed Vital Signs Vital Sign Reading Time Taken Comments Blood Pressure 122/70 04/25/2024 10:58 AM EST Pulse 68 04/25/2024 10:58 AM EST Temperature 36.8 ??C (98.3 ??F) 04/18/2024 7:31 AM ES T Respiratory Rate 16 04/25/2024 10:58 AM EST Oxygen Saturation 100% 04/18/2024 7:31 AM EST Inhaled Oxygen Concentration - - Weight 67.6 kg (149 lb) 04/25/2024 10:58 AM EST Height 160 cm (5' 3 ) 04/25/2024 10:58 AM EST Body Mass Index 26.39 04/25/2024 10:58 AM EST Plan of Treatment Upcoming Encounters Date Type Department Care Team (Late st Contact Info) Description 05/22/2024 11:00 AM EST Office Visit Gastroenterology - [place] [address] [facility] [address] [place] [phone] Andrew Nino PA [address] [place] [address] 06/03/2024 2:10 PM EDT Appointment Radiology Department - [address] [phone] 07/09/2024 2:00 PM EDT Office Visit Urogynecology - [address] [phone] Kym Christine MD [address] [place] [address] [address] [place] [address] 07/18/2024 3:00 PM EDT Office Visit Adult Medicine [place] - [address] [phone] Daphne Almanza MD [address] [place] [address] [phone] (work) Health Maintenance Due Date Last Done Comments Cervical Cancer Screening: Pap Smear 1981 Zoster Vaccines (1 of 2) 2010 RSV Immunization Patients 60+ Years Old (1 - Risk 60-74 years 1-dose series) 2020 HIV Screening 03/05/2022 COVID-19 Vaccine (3 - season) 2023 02/11/2021, 06/19/2020 Depression Screening 04/15/2025 04/15/2024, 04/05/19 Social Influencers of Health Screening 04/15/2025 04/15/2024 Breast Cancer Screening 05/25/2025 05/26/19, 05/20/2022, 05/18/2021, Additional history exists Pneumococcal Vaccine: Pediatrics (0 to 5 Years) and At-Risk Patients (6 to 64 Years) (3 of 3 - PPSV23 or PCV20) 2025 05/09/2018, 12/19/2006 DTaP,Tdap,and Td Vaccines (3 - Td or Tdap) 05/09/2028 05/09/2018, 07/26/2011 Cholesterol Screening (Lipid Panel) 04/12/2029 04/12/2024, 05/12/2022 Colorectal Cancer Screening: Colonoscopy 07/07/2031 07/06/2021 MMR Vaccines Aged Out 07/26/2011 No longer eligi ble based on patient's age to complete this topic Hepatitis C Screening Completed 06/11/2018 Influenza Vaccine Completed 12/08/2023, , 12/21/2021, Additional history exists HIB Vaccines Aged Out No longer eligi ble based on patient's age to complete this topic HPV Vaccines Aged Out No longer eligi ble based on patient's age to complete this topic Hepatitis A Vaccines Aged Out No long er eligible based on patient's age to complete this topic Hepatitis B Vaccines Aged Out No long er eligible based on patient's age to complete this topic IPV Vaccines Aged Out No longer eligi ble based on patient's age to complete this topic Meningococcal ACWY Vaccine Aged Out N o longer eligible based on patient's age to complete this topic RSV Immunization Patients Under 20 months Aged Out No longer eligible based on patient's age to complete this topic Varicella Vaccines Aged Out No longer eligible based on patient's age to complete this topic Procedures Procedure Name Priority Date/Time Associated Diagnosis Comments CT ABDOMEN PELVIS W CONTRAST Routine 04/26/2024 4:58 PM EST Diverticulosis H/O diverticulitis of colon LLQ pain Elevated liver enzymes Gastroesophageal reflux disease without esophagitis Rectal irritation FORREST URINE CULTURE TUBE STAT 04/18/2024 8:09 AM EST URINALYSIS WITH REFLEX MICROSCOPIC AND CULTURE STAT 04/18/2024 8:09 AM EST URINALYSIS WITH REFLEX MICROSCOPIC AND CULTURE STAT 04/18/2024 8:09 AM EST CULTURE URINE STAT 04/18/2024 8:09 AM EST TRICHOMONAS VAGINALIS ANTIGEN STAT 04/18/2024 8:00 AM EST CHLAMYDIA TRACHOMATIS AND NEISSERIA GONORRHOEAE PCR STAT 04/18/2024 8:00 AM EST WET PREP, GENITAL STAT 04/18/2024 8:0 0 AM EST CBC WITH AUTO DIFFERENTIAL STAT 04/17/2024 9:48 PM EST LIPASE STAT 04/17/2024 9:48 PM EST COMPREHENSIVE METABOLIC PANEL STAT 04/17/2024 9:48 PM EST CBC AND DIFFERENTIAL STAT 04/17/2024 9:48 PM EST BILIRUBIN DUPLICATE PROCEDURE TO ORDER Routine 04/12/2024 2:15 PM EST Elevated LFTs FORREST URINE CULTURE TUBE Routine 04/12/2024 2:15 PM EST Diverticulosis H/O diverticulitis of colon LLQ pain Elevated liver enzymes Gastroesophageal reflux disease without esophagitis Rectal irritation URINALYSIS WITH REFLEX MICROSCOPIC AND CULTURE Routine 04/12/2024 2:15 PM EST Diverticulosis H/O diverticulitis of colon LLQ pain Elevated liver enzymes Gastroesophageal reflux disease without esophagitis Rectal irritation CBC WITH AUTO DIFFERENTIAL Routine 04/12/2024 2:15 PM EST Diverticulosis H/O diverticulitis of colon LLQ pain Elevated liver enzymes Gastroesophageal reflux disease without esophagitis Rectal irritation URINALYSIS WITH REFLEX MICROSCOPIC AND CULTURE Routine 04/12/2024 2:15 PM EST Diverticulosis H/O diverticulitis of colon LLQ pain Elevated liver enzymes Gastroesophageal reflux disease without esophagitis Rectal irritation IRON Routine 04/12/2024 2:15 PM EST Diverticulosis H/O diverticulitis of colon LLQ pain Elevated liver enzymes Gastroesophageal reflux disease without esophagitis Rectal irritation FERRITIN Routine 04/12/2024 2:15 PM EST Diverticulosis H/O diverticulitis of colon LLQ pain Elevated liver enzymes Gastroesophageal reflux disease without esophagitis Rectal irritation LIPID PANEL WITH REFLEX TO DIRECT LDL Routine 04/12/2024 2:15 PM EST Diverticulosis H/O diverticulitis of colon LLQ pain Elevated liver enzymes Gastroesophageal reflux disease without esophagitis Rectal irritation COMPREHENSIVE METABOLIC PANEL Routine 04/12/2024 2:15 PM EST Diverticulosis H/O diverticulitis of colon LLQ pain Elevated liver enzymes Gastroesophageal reflux disease without esophagitis Rectal irritation CBC AND DIFFERENTIAL Routine 04/12/2024 2:15 PM EST Diverticulosis H/O diverticulitis of colon LLQ pain Elevated liver enzymes Gastroesophageal reflux disease without esophagitis Rectal irritation CT ABDOMEN PELVIS W CONTRAST STAT 03/24/2024 2:14 AM EST US ABDOMEN LIMITED STAT 03/24/2024 12 :32 AM EST FORREST URINE CULTURE TUBE STAT 03/23/2024 7:27 PM EST URINALYSIS WITH REFLEX MICROSCOPIC AND CULTURE STAT 03/23/2024 7:27 PM EST CBC WITH AUTO DIFFERENTIAL STAT 03/23/2024 7:27 PM EST URINALYSIS WITH REFLEX MICROSCOPIC AND CULTURE STAT 03/23/2024 7:27 PM EST LIPASE STAT 03/23/2024 7:27 PM EST COMPREHENSIVE METABOLIC PANEL STAT 03/23/2024 7:27 PM EST CBC AND DIFFERENTIAL STAT 03/23/2024 7:27 PM EST CULTURE URINE STAT 03/23/2024 7:27 PM EST STRESS TEST ONLY EXERCISE Routine 03/11/2024 10:00 AM EST Chest pain, unspecified type SCREENING MAMMOGRAPHY BI 2-VIEW BREAST INC CAD Routine 05/26/2023 1:59 PM EST Encounter for screening mammogram for malignant neoplasm of breast DEPRESSION SCREENING Routine 04/05/2023 COLONOSCOPY Routine 07/06/2021 HEPATITIS C SCREENING Routine 06/11/2018 from Last 3 Months or Most Recently Relevant to Health Maintenance Results * CT Abdomen Pelvis w Contrast (04/26/2024 4:58 PM EST) Only the most recent of2 resultswithin the time period is included. Anatomical Region Laterality Modality Body Computed Tomogra phy 04/26/2024 5:11 PM EST Impressions 04/26/2024 5:[address] correlate for left lower quadrant pain. Incidental findings as above. -------- FINAL REPORT -------- Dictated By: Evon Sargent Dictated Date: 04/26/2024 17:11 ET Assigned Physician: Evon Sargent Reviewed and Electronically Signed By: Evon Sargent Signed Date: 04/26/2024 17:15 ET Workstation ID: [id number] Transcribed By: Self Edit Transcribed Date: 04/26/2024 [...] Signed Date: 04/26/2024 17:15 ET Workstation ID: [id number] Transcribed By: Self Edit Transcribed Date: 04/26/2024 17:11 ET Andrew CORNELIUS IMG CT PROCEDURES * (ABNORMAL) Urinalysis with reflex microscopic and culture (04/18/2024 8:09 AM EST) Only the most recent of3 resultswithin the time period is included. Specific [place] Urine 1.017 1.003 - 1.030 LAB URINALYSIS - AUTOMATED METHOD 04/18/2024 8:35 AM [facility] pH, Urine 6.5 5.0 - 8.0 pH LAB URINALYSIS - AUTOMATED METHOD 04/18/2024 8:35 AM [facility] Leukocytes, Urine Trace(A) Negative LAB URINALYSIS - AUTOMATED METHOD 04/18/2024 8:35 AM [facility] Nitrite, Urine Negative Negative LAB URINALYSIS - AUTOMATED METHOD 04/18/2024 8:35 AM [facility] Protein, Urine Negative <=Trace mg/dL LAB URINALYSIS - AUTOMATED METHOD 04/18/2024 8:35 AM [facility] Glucose, Urine Negative Negative mg/dL LAB URINALYSIS - AUTOMATED METHOD 04/18/2024 8:35 AM [facility] Ketones, Urine Negative Negative mg/dL LAB URINALYSIS - AUTOMATED METHOD 04/18/2024 8:35 AM [facility] Urobilinogen, Urine 0.2 0.2 - 1.0 mg/dL LAB URINALYSIS - AUTOMATED METHOD 04/18/2024 8:35 AM [facility] Bilirubin, Urine Negative Negative LAB URINALYSIS - AUTOMATED METHOD 04/18/2024 8:35 AM [facility] Blood, Urine Negative Negative LAB URINALYSIS - AUTOMATED METHOD 04/18/2024 8:35 AM [facility] RBC, Urine 4.3(H) 0 - 4 /HPF LAB URINALYSIS - AUTOMATED METHOD 04/18/2024 8:35 AM [facility] WBC, Urine 2.3 0 - 4 /HPF LAB URINALYSIS - AUTOMATED METHOD 04/18/2024 8:35 AM [facility] Squamous Epithelial, Urine 17 0 - 60 /LPF LAB URINALYSIS - AUTOMATED METHOD 04/18/2024 8:35 AM [facility] Bacteria, Urine Negative Negative /HPF LAB URINALYSIS - AUTOMATED METHOD 04/18/2024 8:35 AM [facility] Hyaline Casts, Urine 0.0 0 - 3 /LPF LAB URINALYSIS - AUTOMATED METHOD 04/18/2024 8:35 AM [facility] Urine Urine specimen obtained by clean catch procedure / Unknown Non-blood Collection / Unknown 04/18/2024 8:09 AM EST 04/18/2024 8:28 AM EST Marleny CORNELIUS LAB URINE ORDERABLES [facility] [address] [place] [address], * Forrest urine culture tube (04/18/2024 8:09 AM EST) Only the most recent of3 resultswithin the time period is included. Extra Tube Hold for add-ons. 04/18/2024 10:01 AM [facility] Comment:Auto resulted. Urine Urine specimen obtained by clean catch procedure / Unknown Non-blood Collection / Unknown 04/18/2024 8:09 AM EST 04/18/2024 8:28 AM EST Marleny CORNELIUS LAB URINE ORDERABLES Performing Organization Address City/[facility]/ZIP Co de Phone Number [facility] [address] [place] [address], * Culture urine (04/18/2024 8:09 AM EST) Only the most recent of2 resultswithin the time period is included. Pathologist [facility] Culture, Urine No growth 04/19/2024 9:01 AM EST [facility] Urine Urine specimen obtained by clean catch procedure / Unknown Non-blood Collection / Unknown 04/18/2024 8:09 AM EST 04/18/2024 8:35 AM EST Marleny [facility] MICROBIOLOGY - G ENERAL ORDERABLES Performing Organization Address City/[facility]/ZIP Co de Phone Number [facility] [address] [place] [address], * Trichomonas vaginalis antigen (04/18/2024 8:00 AM EST) Trichomonas vaginalis Negative Negative 04/18/2024 10:12 AM EST [facility] Swab Vaginal structure / Unknown Non-blood Collection / Unknown 04/18/2024 8:00 AM EST 04/18/2024 8:27 AM EST Marleny CORNELIUS [facility] MICROBIOLOGY - G ENERAL ORDERABLES [facility] [address] [place] [address], [place] [phone] * Chlamydia trachomatis and Neisseria gonorrhoeae molecular study (04/18/2024 8:00 AM EST) Neisseria gonorrhoeae PCR Negative Negative LAB MOLECULAR DIAGNOSTICS METHOD 04/18/2024 10:50 AM EST [facility] Chlamydia trachomatis PCR Negative Negative LAB MOLECULAR DIAGNOSTICS METHOD 04/18/2024 10:50 AM EST [facility] Swab Vaginal structure / Unknown Non-blood Collection / Unknown 04/18/2024 8:00 AM EST 04/18/2024 8:27 AM EST Marleny CORN[facility] MICROBIOLOGY - G ENERAL ORDERABLES Performing Organization Address City/[facility]/ZIP Co de Phone Number [facility] [address] [place] [address], * Wet prep, genital (04/18/2024 8:00 AM EST) Clue Cells, Wet Prep Negative Negative 04/18/2024 10:13 AM EST [facility] Yeast, Wet Prep Negative Negative 04/18/2024 10:13 AM [facility] Trichomonas, Wet Prep Indeterminate Negative 04/18/2024 10:13 AM EST [facility] Comment:Refer to Trichomonas antigen. Swab Vaginal structure / Unknown Non-blood Collection / Unknown 04/18/2024 8:00 AM EST 04/18/2024 8:27 AM EST Marleny CORNELI[facility] MICROBIOLOGY - G ENERAL ORDERABLES Performing Organization Address City/[facility]/ZIP Co de Phone Number [facility] [address] [place] [address], * (ABNORMAL) CBC auto differential (04/17/2024 9:48 PM EST) Only the most recent of3 resultswithin the time period is included. WBC 9.4 4.8 - 10.8 K/mcL LAB HEMETOLOGY METHOD 04/17/2024 10:28 PM [facility] RBC 4.30 3.80 - 4.80 M/mcL LAB HEMETOLOGY METHOD 04/17/2024 10:28 PM [facility] Hemoglobin 12.9 11.5 - 16.0 g/dL LAB HEMETOLOGY METHOD 04/17/2024 10:28 PM [facility] Hematocrit 39.4 35.0 - 47.0 % LAB HEMETOLOGY METHOD 04/17/2024 10:28 PM [facility] MCV 92.5 79.0 - 98.0 FL LAB HEMETOLOGY METHOD 04/17/2024 10:28 PM [facility] MCH 30.3 27.0 - 32.0 pcg LAB HEMETOLOGY METHOD 04/17/2024 10:28 PM [facility] MCHC 32.7 32.0 - 37.0 g/dL LAB HEMETOLOGY METHOD 04/17/2024 10:28 PM [facility] RDW 13.7 11.0 - 15.0 % LAB HEMETOLOGY METHOD 04/17/2024 10:28 PM [facility] Platelets 255 130 - 400 K/mcL LAB HEMETOLOGY METHOD 04/17/2024 10:28 PM [facility] MPV 10.9 7.0 - 11.0 FL LAB HEMETOLOGY METHOD 04/17/2024 10:28 PM [facility] NRBC 0.0 <1.0 % LAB HEMETOLOGY METHOD 04/17/2024 10:28 PM [facility] NRBC Absolute 0.00 <0.10 K/mcL LAB HEMETOLOGY METHOD 04/17/2024 10:28 PM [facility] Neutrophils Relative 73.0 % LAB HEMETOLOGY METHOD 04/17/2024 10:28 PM [facility] Lymphocytes Relative 17.2 % LAB HEMETOLOGY METHOD 04/17/2024 10:28 PM EST [facility] Monocytes Relative 7.1 % LAB HEMETOLOGY METHOD 04/17/2024 10:28 PM [facility] Eosinophils Relative 1.6 % LAB HEMETOLOGY METHOD 04/17/2024 10:28 PM [facility] Basophils Relative 0.7 % LAB HEMETOLOGY METHOD 04/17/2024 10:28 PM [facility] Immature Granulocytes Relative 0.4 % LAB HEMETOLOGY METHOD 04/17/2024 10:28 PM [facility] Neutrophils Absolute 6.83 1.50 - 7.00 K/mcL LAB HEMETOLOGY METHOD 04/17/2024 10:28 PM [facility] Lymphocytes Absolute 1.61 1.00 - 5.00 K/mcL LAB HEMETOLOGY METHOD 04/17/2024 10:28 PM [facility] Monocytes Absolute 0.66 0.20 - 1.00 K/mcL LAB HEMETOLOGY METHOD 04/17/2024 10:28 PM [facility] Eosinophils Absolute 0.15 0.00 - 0.50 K/mcL LAB HEMETOLOGY METHOD 04/17/2024 10:28 PM [facility] Basophils Absolute 0.07 0.00 - 0.20 K/mcL LAB HEMETOLOGY METHOD 04/17/2024 10:28 PM [facility] Immature Granulocytes Absolute 0.04(H) 0.00 - 0.03 K/mcL LAB HEMETOLOGY METHOD 04/17/2024 10:28 PM [facility] Blood Venous blood specimen / Unknown Venipuncture / Unknown 04/17/2024 9:48 PM EST 04/17/2024 10:17 PM EST Liban Santo DO LAB BLOOD ORDERABLES [facility] [address] [place] [address], [place] [phone] * Lipase (04/17/2024 9:48 PM EST) Only the most recent of2 resultswithin the time period is included. [facility] Lipase 54 13 - 75 unit/L LAB CHEMISTRY METHOD 04/17/2024 10:45 PM EST [facility] Blood Venous blood specimen / Unknown Venipuncture / Unknown 04/17/2024 9:48 PM EST 04/17/2024 10:17 PM EST Fabianarely Bethany Santo DO LAB BLOOD ORDERABLES [facility] [address] [place] [address], [place] [phone] * (ABNORMAL) Comprehensive metabolic panel (04/17/2024 9:48 PM EST) Only the most recent of3 resultswithin the time period is included. [facility] Sodium 139 133 - 145 mmol/L LAB CHEMISTRY METHOD 04/17/2024 10:48 PM [facility] Potassium 4.8 3.5 - 5.5 mmol/L LAB CHEMISTRY METHOD 04/17/2024 10:48 PM [facility] Chloride 107 96 - 110 mmol/L LAB CHEMISTRY METHOD 04/17/2024 10:48 PM [facility] CO2 30 21 - 32 mmol/L LAB CHEMISTRY METHOD 04/17/2024 10:48 PM [facility] Anion Gap 2(L) 3 - 11 LAB CHEMISTRY METHOD 04/17/2024 10:48 PM [facility] Glucose 103(H) 70 - 100 mg/dL LAB CHEMISTRY METHOD 04/17/2024 10:48 PM [facility] BUN 17 5 - 25 mg/dL LAB CHEMISTRY METHOD 04/17/2024 10:48 PM [facility] Creatinine 0.97 0.50 - 1.10 mg/dL LAB CHEMISTRY METHOD 04/17/2024 10:48 PM [facility] eGFR 66 >=60 mL/min/1. 73m2 LAB CHEMISTRY METHOD 04/17/2024 10:48 PM [facility] Comment:Calculation based on the??Chronic Kidney Disease Epidemiology Collaboration (CKD-EPI) equation refit??without adjustment for race. BUN/Creatinine Ratio 17.5 LAB CHEMISTRY METHOD 04/17/2024 10:48 PM [facility] Calcium 9.6 8.5 - 10.5 mg/dL LAB CHEMISTRY METHOD 04/17/2024 10:48 PM [facility] AST (SGOT) 28 10 - 42 unit/L LAB CHEMISTRY METHOD 04/17/2024 10:48 PM [facility] ALT (SGPT) 40 10 - 60 unit/L LAB CHEMISTRY METHOD 04/17/2024 10:48 PM [facility] Alkaline Phosphatase 94 42 - 121 unit/L LAB CHEMISTRY METHOD 04/17/2024 10:48 PM [facility] Total Protein 7.9 6.0 - 8.0 g/dL LAB CHEMISTRY METHOD 04/17/2024 10:48 PM [facility] Albumin 4.0 3.2 - 5.0 g/dL LAB CHEMISTRY METHOD 04/17/2024 10:48 PM [facility] Total Bilirubin 0.3 0.0 - 1.4 mg/dL LAB CHEMISTRY METHOD 04/17/2024 10:48 PM [facility] Blood Venous blood specimen / Unknown Venipuncture / Unknown 04/17/2024 9:48 PM EST 04/17/2024 10:17 PM EST Liban Santo DO LAB BLOOD ORDERABLES [facility] [address] [place] [address], * Bilirubin duplicate procedure to order (04/12/2024 2:15 PM EST) Total Bilirubin 0.4 0.0 - 1.4 mg/dL LAB CHEMISTRY METHOD 04/12/2024 10:21 PM EST [facility] Bilirubin, Direct 0.1 0.0 - 0.3 mg/dL LAB CHEMISTRY METHOD 04/12/2024 10:21 PM EST [facility] Bilirubin, Indirect 0.3 0.0 - 1.1 mg/dL LAB CHEMISTRY METHOD 04/12/2024 10:21 PM EST [facility] Blood Venous blood specimen / Unknown Venipuncture / Unknown 04/12/2024 2:15 PM EST 04/12/2024 2:15 PM EST Mavis CORNELIUS LAB BLOOD ORDERABLES [facility] [address] [place] [address], [place] [phone] * (ABNORMAL) Lipid panel with reflex to direct LDL (04/12/2024 2:15 PM EST) Pathologist [facility] Cholesterol 210(H) 0 - 200 mg/dL LAB CHEMISTRY METHOD 04/12/2024 10:21 PM EST [facility] Triglycerides 153(H) 0 - 150 mg/dL LAB CHEMISTRY METHOD 04/12/2024 10:21 PM [facility] HDL 46 >=40 mg/dL LAB CHEMISTRY METHOD 04/12/2024 10:21 PM EST [facility] LDL Calculated 133(H) 0 - 100 mg/dL LAB CHEMISTRY METHOD 04/12/2024 10:21 PM [facility] VLDL Cholesterol Abdiel 30.6 mg/dL LAB CHEMISTRY METHOD 04/12/2024 10:21 PM [facility] Non HDL Chol. (LDL+VLDL) 164(H) <145 mg/dL LAB CHEMISTRY METHOD 04/12/2024 10:21 PM EST [facility] Chol/HDL Ratio 4.6(H) 0.0 - 4.4 LAB CHEMISTRY METHOD 04/12/2024 10:21 PM EST [facility] Blood Venous blood specimen / Unknown Venipuncture / Unknown 04/12/2024 2:15 PM EST 04/12/2024 2:15 PM EST Andrew Nino ADRYAN LAB BLOOD ORDERABLES Performing Organization Address City/[facility]/ZIP Co de Phone Number [facility] [address] [place] [address], [place] [phone] * Iron (04/12/2024 2:15 PM EST) Iron 90 40 - 150 mcg/dL LAB CHEMISTRY METHOD 04/12/2024 10:21 PM EST [facility] Blood Venous blood specimen / Unknown Venipuncture / Unknown 04/12/2024 2:15 PM EST 04/12/2024 2:15 PM EST Andrew Nino ADRYAN LAB BLOOD ORDERABLES Performing Organization Address City/[facility]/ZIP Co de Phone Number [facility] [address] [place] [address], [place] [phone] * Ferritin (04/12/2024 2:15 PM EST) Ferritin 93 8 - 252 ng/mL LAB CHEMISTRY METHOD 04/12/2024 10:21 PM EST [facility] Blood Venous blood specimen / Unknown Venipuncture / Unknown 04/12/2024 2:15 PM EST 04/12/2024 2:15 PM EST Andrew CORNELIUS LAB BLOOD ORDERABLES Performing Organization Address City/[facility]/ZIP Co de Phone Number [facility] [address] [place] [address], * US Abdomen Limited (03/24/2024 12:32 AM EST) Anatomical Region Laterality Modality Body Ultrasound 03/24/2024 1:07 AM EST Impressions 03/24/2024 1:07 AM EST No acute findings. This document has been electronically signed by: Darien Santo MD on 03/24/2024 01:07:36 Narrative 03/24/2024 1:07 AM EST US Abdomen Limited, Right Upper Quadrant COMPARISON: None FINDINGS: No cholelithiasis. No gallbladder wall thickening. No pericholecystic fluid. Negative sonographic Calvo sign. No bile duct dilation. Common bile duct measures 4 mm in diameter. The visualized pancreas is unremarkable. Liver normal size and echotexture. Right kidney: 10.2 cm in length. No hydronephrosis. No visible urolithiasis. The visualized IVC is unremarkable. No ascites. Procedure Note Darien Santo MD - 03/24/2024 US Abdomen Limited, Right Upper Quadrant COMPARISON: None FINDINGS: No cholelithiasis. No gallbladder wall thickening. No pericholecystic fluid. Negative sonographic Calvo sign. No bile duct dilation. Common bile duct measures 4 mm in diameter. The visualized pancreas is unremarkable. Liver normal size and echotexture. Right kidney: 10.2 cm in length. No hydronephrosis. No visible urolithiasis. The visualized IVC is unremarkable. No ascites. IMPRESSION: No acute findings. This document has been electronically signed by: Darien Santo MD on 03/24/2024 01:07:36 Mesha Carvajalny John DO IMG US PROCEDURES * Exercise stress test (03/11/2024 10:00 AM EST) Exercise/inject ion duration (min) 6 CV STRESS ONLY Exercise/inject ion duration (sec) 59 CV STRESS ONLY Peak SBP 184 mmHg CV STRESS ONLY Peak DBP 86 mmHg CV STRESS ONLY Peak HR 150 bpm CV STRESS ONLY Baseline HR 75 bpm CV STRES S ONLY Baseline SBP 140 mmHg CV STRE SS ONLY Baseline DBP 82 mmHg CV STRE SS ONLY Estimated workload 10.0 METS CV STRESS ONLY Percent HR 96 % CV STRESS ONLY Rate Pressure Product 27,600.0 mmHg*bpm CV STRESS ONLY Target HR 133 bpm CV STRESS ONLY O2 sat rest 97 % CV STRES S ONLY Max HR Percent 95 % CV ST RESS ONLY ST Depression (mm) 0 mm CV STRESS ONLY Anatomical Region Laterality Modality Cardiac Diagnost ic 03/11/2024 9:32 AM EST 03/11/2024 10:03 AM EST Narrative 03/14/2024 2:21 PM EST ?Stress ECG was normal. No evidence of ischemia by ECG at this adequate level of stress. ?Exercise stress test was performed. Patient reported no symptoms during the stress test. Exercise capacity was above average. Normal blood pressure response. Stress Findings A Hung protocol stress test was performed. Overall, the patient's exercise capacity was above average. Total stress time was 6 min and 59 sec. The test was stopped because the patient experienced fatigue. Blood pressure demonstrated a normal response. Heart rate demonstrated a normal response. The patient reported no symptoms during the stress test. ECG 63-year-old female reporting symptoms of chest discomfort with a history of asthma, fibromyalgia, and former smoking. Rule out ischemia. Baseline ECG is normal. The ECG shows normal sinus rhythm. There were no arrhythmias during stress. There is no ST segment changes during stress. Arrhythmias during recovery: rare premature ventricular contractions (PVCs). 1 mm J-point depression with upsloping not meeting strict criteria for ischemia. Daphne Almanza MD CV STRESS PROCEDURES * SCREENING MAMMOGRAPHY BI 2-VIEW BREAST INC CAD (05/26/2023 1:59 PM EST) Anatomical Region Laterality Modality Radiographic Frances ging 05/20/2022 2:37 PM EST Narrative 05/27/2023 4:04 PM EST This is a summary report. The complete report is available in the patient's medical record. If you cannot access the medical record, please contact the sending organization for a detailed fax or copy. Full field digital screening 2D C views and tomosynthesis mammography, reviewed with CAD and compared to previous. The breasts are composed of fatty and fibroglandular tissue. ??No suspicious mass, architectural distortion or suspicious calcifications are identified. IMPRESSION: : No mammographic evidence of malignancy. BIRADS 1-Negative; N. 5 year breast cancer risk assessment 0.8 % Lifetime breast cancer risk assessment 3.8 % Breast cancer risk category Low (<15%) Procedure Note Janneth Gudino MD - 2023 This is a summary report. The complete report is available in thepatient's medical record. If you cannot access the medical record, pleasecontact the sending organization for a detailed fax or copy. Full field digital screening 2D C views and tomosynthesis mammography,reviewed with CAD and compared to previous. The breasts are composed offatty and fibroglandular tissue. No suspicious mass, architecturaldistortion or suspicious calcifications are identified. IMPRESSION: : No mammographic evidence of malignancy. BIRADS 1-Negative; N. 5 year breast cancer risk assessment 0.8 % Lifetime breast cancer risk assessment 3.8 % Breast cancer risk category Low (<15%) Daphne Almanza MD IMG XR PROCEDURES * Depression Screening (04/05/2023) Depression Screening Abstracted [facility] * Colonoscopy (07/06/2021) Colonoscopy No Interpretation , Abstracted Anatomical Region Laterality Modality Other Historical Provider MD MARCO ANTONIO TURNER E * Hepatitis C Screening (06/11/2018) Hepatitis C Screening Abstracted Historical Provider MD [facility] from Last 3 Months or Most Recently Relevant to Health Maintenance Care Teams Operations Research Manager Relationship Specialty Start Date End Date Daphne Almanza MD [address] [place] [address] PCP - General Internal Medicine 11/30/13
--- OUTSIDE RECORDS SUMMARY | 2024-05-01 09:58 | XMS_ITS | Encounter Summary ---
Author Organization [facility] Address [address] [place] [address] Care Team Providers Care Tip Finisher Name Role Phone Daphne Almanza MD Primary Care Provider [phone] Daphne Almanza MD Unavailable [phone] Encounter Details Date Type Department Care Team Description 08/09/2017 Safety And Skill Based Pay Manager Report Medical Records [address] [place] [id number] Social History Tobacco Use Types Packs/Day Years [...] on filedocumented in this encounter Care Teams Tip Finisher Relationship Specialty Start Date End Date Daphne Almanza MD [address] [place] [address] [phone] PCP - General Internal Medicine 07/31/15 Daphne Almanza MD [address] [place] [address] [phone] 07/29/15 documented as of this encounter
--- OUTSIDE RECORDS SUMMARY | 2024-05-01 09:58 | XMS_ITS | Encounter Summary ---
Author Organization [facility] Address [address] [place] [address] Care Team Providers Care Aircraft Cleaner Name Role Phone Daphne Almanza MD Primary Care Provider [phone] Daphne Amlanza MD Unavailable [phone] Encounter Details Date Type Department Care Team Description 08/25/2016 Sound System Installer Report Medical Records [address] [place] [id number] Ron Strong MD Social History Tobacco Use Types Packs/Day Years Used Date Smoking Tobacco: Former Cigarettes 0.5 32 Q uit: 08/13/2008 Alcohol Use Standard Drinks/Week Comments Not Asked 0 (1 standard drink = 0.6 oz pur e alcohol) Sex Assigned at Date Recorded Not on file Job Start Date Occupation Industry Not on file Not on file Not on file documented as of this encounter Plan of Treatment Not on file documented as of this encounter Visit Diagnoses Not on filedocumented in this encounter Care Teams Aircraft Cleaner Relationship Specialty Start Date End Date Daphne Almanza MD [address] [place] [phone] PCP - General Internal Medicine 07/31/15 Daphne Almanza MD [address] [place] [address] [phone] 07/29/15 documented as of this encounter
--- OUTSIDE RECORDS SUMMARY | 2024-05-01 09:58 | XMS_ITS | Encounter Summary ---
Author Organization [facility] Address [address] [place] [address] Care Team Providers Care Ornamental Brick Installer Name Role Phone Daphne Almanza MD Primary Care Provider [phone] Daphne Almanza MD Unavailable [phone] Reason for Visit * Reason Onset Date Comments REFERRAL 05/25/2017 Encounter Details Date Type Department Care Team Description 05/25/2017 Telephone Endocrinology - [address] [address] Master Tubbs MD REFERRAL Social History Tobacco Use Types Packs/Day Years [...] encounter Miscellaneous Notes * Telephone Encounter - Mavis Osborn PA-C - 05/26/2017 12:38 PM EST Please keep patient on list; I have sent letter to home address. Mavis Osborn PA-C * Telephone Encounter - Maren Eddy - 05/25/2017 9:07 AM EST Patient was referred to Endocrinology for thyroid nodule. Tried to contact patient several times byphone and sent out letter with no response. Patient will be taken off of referrals report. FYI documented in this encounter Plan of Treatment Not on file documented as of this encounter Visit Diagnoses Not on filedocumented in this encounter Care Teams Ornamental Brick Installer Relationship Specialty Start Date End Date Daphne Almanza MD [address] [place] [phone] PCP - General Internal Medicine 07/31/15 Daphne Almanza MD [address] [place] [phone] 07/29/15 documented as of this encounter
--- OUTSIDE RECORDS SUMMARY | 2024-05-01 09:59 | XMS_ITS | Encounter Summary ---
Author Organization [facility] Address [address] [place] [address] Care Team Providers Care Creative Writing English Professor Name Role Phone Daphne Almanza MD Primary Care Provider [phone] Daphne Almanza MD Unavailable [phone] Encounter Details Date Type Department Care Team Description 07/08/2016 Caddymaster Report Medical Records [address] [place] [phone] Ron Strong MD Social History Tobacco Use Types Packs/Day Years Used Date Smoking Tobacco: Former Cigarettes Q uit: 08/13/2008 Alcohol Use Standard Drinks/Week [...] on filedocumented in this encounter Care Teams Creative Writing English Professor Relationship Specialty Start Date End Date Daphne Almanza MD [address] [place] [address] [phone] PCP - General Internal Medicine 07/31/15 Daphne Almanza MD [address] [place] [address] [phone] 07/29/15 documented as of this encounter
--- OUTSIDE RECORDS SUMMARY | 2024-05-01 09:59 | XMS_ITS | Encounter Summary ---
Author Organization [facility] Address [address] [facility] [place] [address] Care Team Providers Care Construction Superintendent Name Role Phone Daphne Almanza MD Primary Care Provider [phone] Daphne Almanza MD Unavailable [phone] Encounter Details Date Type Department Care Team Description 05/27/2016 Release of Information Medical Records [address] [place] [id number] Abstract, Provider Social History Tobacco Use Types [...] filedocumented in this encounter Care Teams Construction Superintendent Relationship Specialty Start Date End Date Daphne Almanza MD [address] [place] [address] [phone] PCP - General Internal Medicine 07/31/15 Daphne Almanza MD [address] [place] [address] [phone] 07/29/15 documented as of this encounter
--- OUTSIDE RECORDS SUMMARY | 2024-05-01 10:00 | XMS_ITS | Encounter Summary ---
Author Organization [facility] Address [address] [place] [address] Care Team Providers Care Pet Care Worker Name Role Phone Daphne Almanza MD Primary Care Provider [phone] Daphne Almanza MD Unavailable [phone] Encounter Details Date Type Department Care Team Description 06/27/2023 Therapeutic Strategy Lead Report Medical Records [address] [place] [phone] Renetta Price NP Social History Tobacco Use Types Packs/Day Years [...] on filedocumented in this encounter Care Teams Pet Care Worker Relationship Specialty Start Date End Date Daphne Almanza MD [address] [place] [address] [phone] PCP - General Internal Medicine 07/31/15 Daphne Almanza MD [address] [place] [phone] 07/29/15 documented as of this encounter
--- OUTSIDE RECORDS SUMMARY | 2024-05-01 10:00 | XMS_ITS | Encounter Summary ---
Author Organization [facility] Address [address] [place] [address] Care Team Providers Care Systems Requirements Planner Name Role Phone Daphne Almanza MD Primary Care Provider [phone] Daphne Almanza MD Unavailable [phone] Encounter Details Date Type Department Care Team Description 07/09/2021 Orders Only Medical Records [address] [place] [address] Pavan Ozuna MD [address] [facility] [address] [place] [address] Social History Tobacco Use Types Packs/Day Years [...] suspected to have Coronavirus/COVID-19? No / Unsure 07/08/2021 3:05 PM EDT documented as of this encounter Plan of Treatment Not on file documented as of this encounter Procedures Procedure Name Priority Date/Time Associated Diagnosis Comments OUTSIDE PATHOLOGY Routine 07/06/2021 documented in this encounter Results * OUTSIDE PATHOLOGY (07/06/2021) Pavan Ozuna MD OUTSIDE LAB documented in this encounter Visit Diagnoses Not on filedocumented in this encounter Care Teams Systems Requirements Planner Relationship Specialty Start Date End Date Daphne Almanza MD [address] [place] [phone] PCP - General Internal Medicine 07/31/15 Daphne Almanza MD [address] [place] [phone] 07/29/15 documented as of this encounter
--- OUTSIDE RECORDS SUMMARY | 2024-05-01 10:00 | XMS_ITS | Encounter Summary ---
Author Organization [facility] Address [address] [place] [address] Care Team Providers Care Chemical Engineering Intern Name Role Phone Daphne Almanza MD Primary Care Provider Daphne Almanza MD Unavailable [phone] Reason for Visit * Reason Onset Date Comments Faxed Order 11/10/2021 [facility] 03/2021-03/26/2022 Encounter Details Date Type Department Care Team Description 11/10/2021 Telephone Adult Medicine [facility] [address] [place] [address] [phone] Daphne Almanza MD [address] [place] [address] [phone] Faxed Order ([facility] 09/24/2021-03/26/2022) Social History Tobacco Use Types Packs/Day Years [...] suspected to have Coronavirus/COVID-19? No / Unsure 11/02/2021 1:55 PM EDT documented as of this encounter Plan of Treatment Not on file documented as of this encounter Visit Diagnoses Not on filedocumented in this encounter Care Teams Chemical Engineering Intern Relationship Specialty Start Date End Date Daphne Almanza MD [address] [place] [phone] PCP - General Internal Medicine 07/31/15 Daphne Almanza MD [address] [place] [id number] 07/29/15 documented as of this encounter
--- OUTSIDE RECORDS SUMMARY | 2024-05-01 10:00 | XMS_ITS | Encounter Summary ---
Author Organization [facility] Address [address] [place] [address] Care Team Providers Care Transporter Radiology Name Role Phone Daphne Almanza MD Primary Care Provider [phone] Daphne Almanza MD Unavailable [phone] Encounter Details Date Type Department Care Team Description 05/08/2019 SCAN Medical Records [address] [place] [phone] Abstract, Provider Social History Tobacco Use Types [...] on filedocumented in this encounter Care Teams Transporter Radiology Relationship Specialty Start Date End Date Daphne Almanza MD [address] [place] [phone] PCP - General Internal Medicine 07/31/15 Daphne Almanza MD [address] [place] [address] [phone] 07/29/15 documented as of this encounter
--- OUTSIDE RECORDS SUMMARY | 2024-05-01 10:00 | XMS_ITS | Encounter Summary ---
Author Organization [facility] Address [address] [place] [address] Care Team Providers Care Switcher Name Role Phone Daphne Almanza MD Primary Care Provider [phone] Daphne Almanza MD Unavailable [phone] Encounter Details Date Type Department Care Team Description 09/13/2019 Orders Only Medical Records [address] [place] [address] Pavan Ozuna MD [address] [facility] [address] [place] [address] Social History Tobacco Use Types Packs/Day Years [...] Date/Time Associated Diagnosis Comments OUTSIDE PATHOLOGY Routine 09/11/2019 documented in this encounter Results * OUTSIDE PATHOLOGY (09/11/2019) Pavan Ozuna MD OUTSIDE LAB documented in this encounter Visit Diagnoses Not on filedocumented in this encounter Care Teams Switcher Relationship Specialty Start Date End Date Daphne Almanza MD [address] [place] [address] PCP - General Internal Medicine 07/31/15 Daphne Almanza MD [address] [place] [id number] 07/29/15 documented as of this encounter
--- NOTE | 2024-05-01 10:06 | ECG_ITS ---
Test Reason : ABDOMINAL PAIN Blood Pressure : */* mmHG Vent. Rate : 58 BPM Atrial Rate : 58 BPM P-R Int : 156 ms QRS Dur : 82 ms QT Int : 438 ms P-R-T Axes : 59 68 51 degrees QTcB Int : 429 ms Sinus bradycardia with occasional Premature ventricular complexes Otherwise normal ECG When compared with ECG of 14-Dec-2023 22:24, Premature ventricular complexes are now Present Referred By: Andriy King Electronically Signed By: Salo Mccord
--- NOTE | 2024-05-01 10:17 | ED_ITS ---
HPI - General Adult General Chief complaint: Abdominal Pain Stated complaint: stomach pain, bloated Time Seen by Provider: 05/01/24 09:40 Source: patient Mode of arrival: ambulatory Limitations: no limitations History of Present Illness ED Provider: Andriy King HPI narrative: 62-year-old female history of gastritis presents to the ED or upper epigastric abdominal pain with nausea and not feeling sensation abdomen is bloated with poor intake. Also having rectal pain. Patient denies any dysuria, hematuria, vaginal discharge, or vaginal bleeding. Patient denies constipation. Patient states she was seen at [facility] this past Monday for CT scan still waiting for the results. Patient had outpatient CT scan done at [facility]. Patient states she has had 4 CT scans for this issue. Patient states being followed up with a amusement ride inspector. Patient denies any chest pain or shortness of breath. Patient denies any pleurisy. Patient denies any diarrhea or bloody stool. Patient states she had a bowel movement yesterday. Related Data Home Medications ?Medication ?Instructions ?Recorded ?Confirmed buspirone 30 mg tablet 30 mg PO BID 03/04/20 03/04/20 famotidine 20 mg tablet 20 mg PO BID 03/04/20 03/04/20 loratadine 10 mg capsule 10 mg PO DAILY 03/04/20 03/04/20 pantoprazole 40 mg tablet,delayed 40 mg PO DAILY 03/04/20 03/04/20 release risperidone 2 mg tablet (Risperdal) 2 mg PO DAILY 10/13/20 gabapentin 100 mg capsule 100 mg PO BID 02/28/24 azelastine 137 mcg (0.1 %) nasal 2 spray intranasal BID 05/01/24 spray eszopiclone 2 mg tablet 2 mg PO BEDTIME PRN insomnia 05/01/24 fluticasone propionate 50 1 spray intranasal BID 05/01/24 mcg/actuation nasal spray,suspension hydrocortisone 1 % topical cream 1 appl topical BID 05/01/24 with perineal applicator tramadol 50 mg tablet 50 mg PO Q6H PRN severe pain 05/01/24 venlafaxine 150 mg 150 mg PO DAILY 05/01/24 capsule,extended release 24 hr Previous Rx's ?Medication ?Instructions ?Recorded docusate sodium 100 mg capsule 200 mg (2 x 100 mg) PO DAILY #60 03/27/21 (Colace) caps polyethylene glycol 3350 17 17 g PO DAILY #510 grams 03/27/21 gram/dose oral powder (Miralax) lorazepam 1 mg tablet (Ativan) 1 mg PO BID PRN anxiety #8 tabs 12/16/22 phenazopyridine 200 mg tablet 200 mg PO TID PRN pain 6 doses #6 03/10/24 (Pyridium) tabs ibuprofen 600 mg tablet 600 mg PO Q8H PRN pain #30 tabs 04/05/24 oxycodone 5 mg capsule 5 mg PO Q8H PRN pain 3 days #9 caps 05/01/24 Allergies Allergy/AdvReac Type Severity Reaction Status Date / Time aspirin [ASA] Allergy Intermediate NAUSEA & Verified 05/01/24 08:49 VOMITING, stomach upset, nausea and vomiting Review of Systems 2 Review of Systems: abdominal pain, nuasea, bloating Yes all other systems are reviewed and are negative [facility] Past Medical History Medical History Carpal tunnel syndrome Asthma Vocal cord anomaly Bloating Acid reflux Surgical History Hx of tubal ligation Social History Social History Household Members Other:: alone Alcohol intake: never Patient Tobacco Use Status: Former Tobacco user Tobacco use type: Cigarette Years Smoked: quit 12 years ago Current occupational status: unemployed Physical Exam ED Vital Signs: Vital Signs - 24 hr 05/01/24 08:46 05/01/24 10:46 05/01/24 16:44 Temperature 97.9 F 97.8 F 97.8 F Pulse Rate 59 52 52 Respiratory Rate 20 18 18 Blood Pressure 103/70 106/67 106/67 Pulse Oximetry 99 99 99 Oxygen Delivery Method Room Air Room Air Room Air BMI result Body Mass Index 26.5 Const General: cooperative, healthy appearing, comfortable, no acute distress, well developed and alert Orientation/consciousness: patient oriented x3 HENMT Head: Yes normal to inspection, Yes No palpable skull fracture present, Yes normocephalic and Yes atraumatic Ears: hearing grossly normal bilaterally, external ears normal, TM's normal bilaterally, TM normal on the right, TM normal on the left, EAC's normal, mastoids normal and no periauricular adenopathy Throat: Yes posterior oropharynx normal, Yes tonsils normal and Yes uvula midline Eyes General: appearance normal, both eyes and all related structures Neck Neck: Yes normal visual inspection, Yes full ROM, Yes no lymphadenopathy, Yes no meningeal signs, Yes trachea midline, Yes supple, No anterior neck swelling and No tender Chest Chest palpation & inspection: normal inspection of the chest and normal palpation of entire chest wall Resp Effort & Inspection: normal respiratory effort and able to speak in complete sentences Auscultation: clear to auscultation bilaterally Cardio Jugular venous distension: no JVD Heart sounds: S1 normal heart sound present and S2 normal heart sound present GI Palpation (GI): Soft to palpation, not firm, Tenderness to palpation present (GI) in the epigastrum, in the LLQ, in the RLQ, in the LUQ and in the RUQ, no guarding and not rigid Other: Rectal exam negative for any abscess, cellulitis, bleeding, black stool, no hemorrhoids. General: Yes no CVA tenderness Back/Spine/Pelvis Back: no CVA tenderness and No back tenderness Skin General skin exam: no rashes or lesions noted, elasticity normal and turgor normal Neuro General: patient oriented x3, gait normal, tone normal, moves all extremities, Normal light touch and pain sensation, no meningeal signs, no focal motor deficits, CN's II-XI intact bilaterally and normal sensation to monofilament Extrem General: Yes normal to inspection, Yes full ROM and Yes capillary refill normal Psych Appearance: grossly normal, well kempt and not disheveled Medications Administered Discontinued Medications Generic Name Dose Route Start Last Admin Trade Name Freq PRN Reason Stop Dose Admin Al Hydroxide/Mg Hydroxide 30 ml 05/01/24 10:09 05/01/24 10:54 Magnesium Hydrox/Alum Hydrox 30 Ml Oral.Susp PO 05/01/24 10:10 30 ml ONCE ONE Administration Famotidine 20 mg 05/01/24 10:05/01/24 10:54 Famotidine/Pf 20 Mg/2 Ml Vial IVPUSH 05/01/24 10:10 20 mg ONCE ONE Administration Sodium Chloride 1,000 mls @ 999 mls/hr 05/01/24 13:36 05/01/24 16:36 Ns IV 05/01/24 14:36 Infused .Q1H1M STA Infusion Sodium Chloride 1,000 mls @ 999 mls/hr 05/01/24 13:37 05/01/24 16:36 Ns IV 05/01/24 14:37 Infused .Q1H1M STA Infusion Iohexol 100 ml 05/01/24 12:01 05/01/24 12:02 Iohexol 350 Mg/Ml 100 Ml Infus..Btl IV 05/01/24 12:02 80 ml ONCE ONE Administration Lidocaine HCl 15 ml 05/01/24 10:09 05/01/24 10:54 Lidocaine Hcl Viscous 2 % 15 Ml Solution MUCOUS MEM 05/01/24 10:10 15 ml ONCE ONE Administration Morphine Sulfate 2 mg 05/01/24 11:24 05/01/24 11:52 Morphine Sulfate 2 Mg/Ml Cartridge IVPUSH 05/01/24 11:25 Not Given ONCE ONE Protocol Morphine Sulfate 2 mg 05/01/24 16:00 05/01/24 16:16 Morphine Sulfate 2 Mg/Ml Cartridge IVPUSH 05/01/24 16:01 1 mg ONCE ONE Administration Protocol Sucralfate 1 gm 05/01/24 10:18 05/01/24 10:54 Sucralfate Oral Suspension 1 Gm/10 Ml Oral.Susp PO 05/01/24 10:19 1 gm ONCE ONE Administration Medical Decision Making Medical Decision Making MDM Narrative: 63-year-old female history of gastritis presents to ED for upper abdominal pain now is generalized. Will add EKG troponin due to age. Will add lactic acid. GI cocktail ordered. Pepcid ordered. 11:30pm: Can not get CT scan ordered from [facility]. Does not know on a CT scan was ordered it was angio or not. Due to patient has consistent pus prandial pain with abdominal pain out of proportion CT angio of the abdomen and pelvis was ordered. Lactic acid negative with still will order CT scan angio to check for arterial occlusion and also will check for any other abdominal etiologies. Abdomen is screen tender helper on exam patient is offered morphine but refused. 4:07pm: Patient's abdominal CT scan came back negative for any acute mesenteric thrombus but does show significant vascular disease of intestines. Case was discussed with Dr. Bhavani Galan supervising ED attending who states patient can follow-up outpatient with vascular surgeon and does not need antibiotics. Case was discussed with Dr. Nevarez of vascular surgery and he was informed of patient's physical exam and given CT scan results. He agreed the patient could be discharged and follow up outpatient. No need for any antibiotics for segmental colitis due to it being more ischemic. Lactic acid negative. Patient and family members explained worrisome signs and informed to return to the ED immediately. They have also informed with the importance for outpatient follow- up with vascular surgeon. EKG negative STEMI. Two troponins negative. Never was able to receive [facility] scan results. patient was given copy of labs, imaging, and EKG for follow up wt PCP, gastroenterologists, and vascular surgeon. Differential Diagnosis Differential Diagnoses: The differential diagnosis associated with the presentation includes (Mesenteric ischemia, bowel obstruction, OH, UTI) Admission/Observation Consideration of admission/observation: Escalation of care including admission/observation considered Consult Healthcare Provider Management of the patient was discussed with: Boiler Inspector (Dr. Nevarez vascular surgeon) Lab Data MDM Lab Attestation statement: I reviewed the patient's lab results. 05/01/24 09:02 05/01/24 09:02 Labs: Lab Results 05/01/24 05/01/24 05/01/24 Range/Units 09:02 10:38 14:32 WBC 7.3 (4.8-10.8) X10*3/uL RBC 4.27 (4.20-5.50) X10*6/uL Hgb 12.9 (12.0-16.0) g/dl Hct 37.4 (37.0-47.0) % MCV 87.6 (80.0-98.0) fL MCH 30.2 (27.0-33.0) pg MCHC 34.5 (31.0-35.0) g/dl RDW 13.4 (11.0-16.0) % Plt Count 300 (160-400) X10*3/uL MPV 10.4 (9.4-12.3) fL Immature Gran % (Auto) 0.4 (0.0-0.4) % Neut % (Auto) 65.6 (45-73) % Lymph % (Auto) 20.4 (20-40) % Hayes % (Auto) 10.5 (2-11) % Eos % (Auto) 2.3 (0-4) % Baso % (Auto) 0.8 (0-2) % Lymph # (Auto) 1.5 (1.2-4.9) X10*3/uL Hayes # (Auto) 0.8 (0.1-1.2) X10*3/uL Eos # (Auto) 0.2 (0.0-0.4) X10*3/uL Baso # (Auto) 0.1 (0.0-0.2) X10*3/uL Abs Immat Gran (auto) 0.03 (0.00-0.03) X10*3/uL Absolute Neuts (auto) 4.8 (2.0-8.3) x10*3/uL Absolute Nucleated RBC 0.000 (0.0-0.012) X10*3/uL Nucleated RBC % (auto) 0.0 (0.0-0.2) /100WBC PT 12.1 (10.9-12.4) SEC INR 1.0 (0.9-1.1) APTT 31.8 (26.0-36.8) SEC Sodium 141 (135-145) mmol/L Potassium 3.9 (3.3-5.1) mmol/L Chloride 109 H (96-108) mmol/L Carbon Dioxide 23 (22-29) mmol/L Anion Gap 13 (12-20) BUN 13 (9-16) mg/dL Creatinine 0.87 (0.5-1.4) mg/dL Estim Creat Clear Calc 61.2 Estimated GFR > 60 Random Glucose 91 (60-115) mg/dL Lactic Acid 1.4 (0.5-2.0) mmol/L Calcium 9.3 (8.4-10.2) mg/dL Total Bilirubin 0.4 (0.0-1.0) mg/dL Direct Bilirubin 0.2 (0.0-0.5) mg/dL AST 25 (5-31) U/L ALT 18 (0-31) U/L Alkaline Phosphatase 73 (39-117) U/L Troponin I High Sens < 2.7 < 2.7 (<3.5-17.0) ng/L Total Protein 8.1 H (6.5-8.0) g/dL Albumin 4.1 (3.5-5.0) g/dL Lipase 35 (8-78) U/L Urine Color Yellow Urine Appearance Clear Urine pH 8.5 (5.0-9.0) Ur Specific [place] 1.015 (1.005-1.025) Urine Protein 30 (1+) H (Neg-Trace) mg/dL Urine Glucose (UA) Negative (Negative) mg/dL Urine Ketones Negative (Negative) mg/dL Urine Blood Negative (Negative) Urine Nitrite Negative (Negative) Ur Leukocyte Esterase Negative (Negative) Urine RBC 0-2 (0-2) /HPF Urine WBC 0-5 (0-5) /HPF Ur Squamous Epith Cells 0-2 (0-2) /HPF Urine Bacteria None Seen (None Seen) Hyaline Casts 0-2 (0-2) /LPF Independent Interpretation I performed an independent interpretation of an: CT Scan Radiology Impression Discussion of test interpretation with radiology: I have reviewed the radiologist's reading. Independent Historian Clinical information obtained from an independent historian. History obtained from or confirmed by: Other (Patient) Prescription Management I considered prescription management with: Pain Medication Discharge Plan Discharge Clinical Impression: Abdominal pain, GERD (gastroesophageal reflux disease) Patient Disposition: Home, Self-Care Instructions: Gastroesophageal Reflux Disease (ED), Acute Abdominal Pain (ED) Additional Instructions: Your abdominal CT scan shows significant vascular disease in your abdomen. You will need outpatient follow-up with our vascular surgeon and your amusement ride inspector. Your EKG and labs were reassuring. Return to the ED immediately for any severe abdominal pain, nausea, vomiting, flank pain, fever, chills, or any other concerning symptoms. Continue taking your antiacid medications at home. You will be discharged with oxycodone for pain. Prescriptions: New oxycodone 5 mg capsule 5 mg PO Q8H PRN (Reason: pain) 3 Days Qty: 9 0RF Rx Instructions: Partial Fill upon patient request. Side effects of drowsiness. Not take at work or while driving No Action docusate sodium [Colace] 100 mg capsule 200 mg PO DAILY Qty: 60 0RF polyethylene glycol 3350 [Miralax] 17 gram/dose powder 17 g PO DAILY Qty: 510 0RF phenazopyridine [Pyridium] 200 mg tablet 200 mg PO TID PRN (Reason: pain) Qty: 6 0RF ibuprofen 600 mg tablet 600 mg PO Q8H PRN (Reason: pain) Qty: 30 0RF lorazepam [Ativan] 1 mg tablet 1 mg PO BID PRN (Reason: anxiety) Qty: 8 0RF venlafaxine 150 mg capsule,extended release 24hr 150 mg PO DAILY azelastine 137 mcg (0.1 %) spray,non-aerosol 2 spray intranasal BID fluticasone propionate 50 mcg/actuation spray,suspension 1 spray intranasal BID hydrocortisone 1 % cream with perineal applicator 1 appl topical BID eszopiclone 2 mg tablet 2 mg PO BEDTIME PRN (Reason: insomnia) tramadol 50 mg tablet 50 mg PO Q6H PRN (Reason: severe pain) famotidine 20 mg tablet 20 mg PO BID pantoprazole 40 mg tablet,delayed release (DR/EC) 40 mg PO DAILY buspirone 30 mg tablet 30 mg PO BID loratadine 10 mg capsule 10 mg PO DAILY risperidone [Risperdal] 2 mg tablet 2 mg PO DAILY gabapentin 100 mg capsule 100 mg PO BID Referrals: Sushil Nevarez MD [Physician] - (Significant vascular disease of abdominal vessels) Stand Alone Forms: Work/School Release Interventions: ED Discharge Assessment Last Done: 05/01/24 16:44 Discharge Date/Time: 05/01/24 17:04 Print Language: Congolese
[2024-05-01 10:46] VITALS: BP 106/67; PULSE 52; RESP 18; TEMP 36.6; O2SAT 99
[2024-05-01 10:50] LABS: Prothrombin Time 12.1 SEC (10.9-12.4)
[2024-05-01 10:52] LABS: Partial Thromboplastin Time 31.8 SEC (26.0-36.8)
[2024-05-01] MEDS: Sucralfate Oral Suspension 1 GM/10 ML ORAL.SUSP PO (10:54)
[2024-05-01] MEDS: Lidocaine HCl Viscous 2 % 15 ML SOLUTION MUCOUS MEM (10:54)
[2024-05-01] MEDS: Magnesium Hydrox/Alum Hydrox 30 ML ORAL.SUSP PO (10:54)
[2024-05-01] MEDS: Famotidine/PF 20 MG/2 ML VIAL IVPUSH (10:54)
[2024-05-01 10:58] LABS: Lactic Acid 1.4 mmol/L (0.5-2.0)
[2024-05-01 11:06] LABS: Troponin-I High Sensitivity < 2.7 ng/L (<3.5-17.0)
[2024-05-01] MEDS: iohexoL 350 MG/ML 100 ML INFUS..BTL IV (12:02)
[2024-05-01] MEDS: 0.9 % Sodium Chloride 1,000 ML 999 ML IV ×2 (14:31)
[2024-05-01 15:08] LABS: Troponin-I High Sensitivity < 2.7 ng/L (<3.5-17.0)
[2024-05-01] MEDS: Morphine Sulfate 2 MG/ML CARTRIDGE IVPUSH (16:16)
[2024-05-01 16:44] VITALS: BP 106/67; PULSE 52; RESP 18; TEMP 36.6; O2SAT 99
== END 2024-05-01 17:04 | disposition home or self-care (01) ==
PROVIDERS: Physician Assistant; Emergency Provider Emergency Medicine; PCP Internal Medicine
DX: K21.9 Gastro-esophageal reflux disease without esophagitis (principal); R10.13 Epigastric pain; R14.0 Abdominal distension (gaseous); K62.89 Other specified diseases of anus and rectum; J45.909 Unspecified asthma, uncomplicated; Z79.899 Other long term (current) drug therapy
CPT/HCPCS: 36415; 74174; 80048; 80076; 81001; 83605; 83690; 84484; 85025; 85610; 85730; 93005; 96361; 96374; 99284; J2270; Q9967

== ENCOUNTER → 2024-05-01 11:24 | Outpatient (BNV) | payer OTHER, SELFPAY | PROVIDERS: Emergency Provider Emergency Medicine; PCP Internal Medicine; Visit Provider Radiology Diagnostic Radiology | DX: R10.9 Unspecified abdominal pain (principal); R14.0 Abdominal distension (gaseous) | CPT/HCPCS: 74174 ==

== ENCOUNTER 2024-05-13 13:06 | Emergency (ER) | payer OTHER, SELFPAY ==
[2024-05-13 13:50] VITALS: BP 145/76; PULSE 60; RESP 19; TEMP 36.6; O2SAT 98; BMI 26.6
--- NOTE | 2024-05-13 13:52 | ED_ITS ---
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 Hoang HPI Narrative: 63-year-old female with chronic epigastric abdominal pain, patient follow-up with a portrait consultant at [facility] was prescribed amoxicillin for stomach issue patient has been with 3 months of diarrhea and chronic upper abdominal pain patient had multiple CTs of the abdomen and pelvis to evaluate issue. Patient stated stool has been dark (no blood, no black stool). No fever, no chills, no sick contacts. 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 The more distal branches appear normal. No embolus. And patient is scheduled to see vascular tomorrow as an outpatient for further evaluation. Related Data Home Medications ?Medication ?Instructions ?Recorded ?Confirmed buspirone 30 mg tablet 30 mg PO BID 03/04/20 03/04/20 famotidine 20 mg tablet 20 mg PO BID 03/04/20 03/04/20 loratadine 10 mg capsule 10 mg PO DAILY 03/04/20 03/04/20 pantoprazole 40 mg tablet,delayed 40 mg PO DAILY 03/04/20 03/04/20 release risperidone 2 mg tablet (Risperdal) 2 mg PO DAILY 10/13/20 gabapentin 100 mg capsule 100 mg PO BID 02/28/24 azelastine 137 mcg (0.1 %) nasal 2 spray intranasal BID 05/01/24 spray eszopiclone 2 mg tablet 2 mg PO BEDTIME PRN insomnia 05/01/24 fluticasone propionate 50 1 spray intranasal BID 05/01/24 mcg/actuation nasal spray,suspension hydrocortisone 1 % topical cream 1 appl topical BID 05/01/24 with perineal applicator tramadol 50 mg tablet 50 mg PO Q6H PRN severe pain 05/01/24 venlafaxine 150 mg 150 mg PO DAILY 05/01/24 capsule,extended release 24 hr Previous Rx's ?Medication ?Instructions ?Recorded docusate sodium 100 mg capsule 200 mg (2 x 100 mg) PO DAILY #60 03/27/21 (Colace) caps polyethylene glycol 3350 17 17 g PO DAILY #510 grams 03/27/21 gram/dose oral powder (Miralax) lorazepam 1 mg tablet (Ativan) 1 mg PO BID PRN anxiety #8 tabs 12/16/22 phenazopyridine 200 mg tablet 200 mg PO TID PRN pain 6 doses #6 03/10/24 (Pyridium) tabs ibuprofen 600 mg tablet 600 mg PO Q8H PRN pain #30 tabs 04/05/24 oxycodone 5 mg capsule 5 mg PO Q8H PRN pain 3 days #9 caps 05/01/24 Allergies Allergy/AdvReac Type Severity Reaction Status Date / Time aspirin [ASA] Allergy Intermediate NAUSEA & Verified 05/13/24 13:54 VOMITING, stomach upset, nausea and vomiting Review of Systems 2 Review of Systems: All other systems are reviewed and are negative Constitutional: Reports as per HPI and Reports no additional constitutional complaints Eyes: Reports as per HPI and Reports no additional eye complaints Reports system reviewed and no additional complaints, except as documented Cardiovascular: Reports as per HPI and Reports no additional cardiovascular complaints Respiratory: Reports as per HPI and Reports no additional respiratory complaints Gastrointestinal: Reports as per HPI and Reports no additional gastrointestinal complaints Genitourinary: Reports no additional female genitourinary complaints Musculoskeletal: Reports no additional musculoskeletal complaints Skin/Breast: Reports system reviewed and no additional complaints, except as docu Psychiatric: Reports no additional psychiatric complaints Endocrine: Reports no additional endocrine complaints Hematologic/Lymphatic: Reports no additional hematologic/lymphatic complaints Allergic/Immunologic: Reports no additional allergic/immunologic complaints Reports system reviewed and no additional complaints, except as documented and Reports Abnormal speech present [facility] Past Medical History Medical History Carpal tunnel syndrome Asthma Vocal cord anomaly Bloating Acid reflux Surgical History Hx of tubal ligation Social History Social History Household Members Other:: alone Alcohol intake: never Patient Tobacco Use Status: Former Tobacco user Tobacco use type: Cigarette Years Smoked: quit 12 years ago Advance Directives: No Advance Directives Information Provided: No Current occupational status: unemployed Physical Exam 2 Vital Signs: Vital Signs: Last Vital Signs Temp 98.2 F 05/13/24 18:46 Pulse 76 05/13/24 18:46 Resp 18 05/13/24 18:46 BP 148/70 H 05/13/24 18:46 Pulse Ox 99 05/13/24 18:46 O2 Del Method Room Air 05/13/24 18:46 BMI result Body Mass Index 26.6 Vital signs have been reviewed and appear to be correct. Blood pressure elevated. Heart rate normal. Respiratory rate normal. Temperature normal. Oxygen saturation normal. Appearance: Alert. Oriented X3. No acute distress. Head: Normal external exam. Normocephalic. Atraumatic. No Francis signs noted. No raccoon eyes noted Eyes: PERRLA. EOMI. Conjunctiva and sclera normal. Eyelids normal. ENT: TM's Normal. Pharynx normal. Uvula midline. Moist mucous membranes. No trismus noted. No drooling noted. No muffled voice noted. Neck: Normal inspection. Neck supple. FROM. No adenopathy. Thyroid Normal. No meningeal signs. No neck mass noted. CVS: Normal heart rate and rhythm. Heart sound normal. No murmurs noted. Pulses normal throughout. Respiratory: No respiratory distress. Painless inspiration. Breath sounds normal. No wheezes/rales/rhonchi noted. Chest nontender. No accessory muscle usage noted or decreased air movement noted. Abdomen: Soft and nontender. Bowel sounds normal in all 4 quadrants. No distention noted. No organomegaly noted. No visible injury noted. Rectal exam: Nonbleeding external hemorrhoid, no rectal mass or tenderness, brown stool guaiac negative. Back: No CVA tenderness. Full range of motion noted. Skin: Skin warm and dry. Normal skin color. Normal skin turgor. No rashes/lesions/lacerations noted. Extremities: No lower extremity edema. Extremities exhibit normal range of motion. Extremities nontender. Neuro: Oriented X 3. Cranial nerve exam: II-XII are grossly intact No motor deficit. No sensory deficit. Reflexes normal. Course Course Course Narrative: This is an RME: Additional HPI, ROS, PE not included below will be deferred to primary provider. RME assessment and note performed by: Cathie Wild PA-C This is a 63-year-old female, who presents emergency department with concerns for abdominal pain and diarrhea for 3 months. Family member reports that the stool is very dark. Has been on antibiotics recently. Patient was seen on May 01, 2024, where she had a CTA which showed significant vascular disease. Case was discussed with Dr. Fu, she has an appointment with Dr. Nevarez tomorrow. Concerns that she is dehydrated which is why she was here today. Plan: Labs, UA, Further ER eval needed Reevaluation(s) Reevaluation #1: 63-year-old female presented with Chronic abdominal pain. No acute emergency intervention is needed at this point. Labs are unremarkable at patient's baseline, patient is positive for COVID-19 infection. Will discharge to follow-up with her portrait consultant and her already scheduled appointment tomorrow with vascular surgery. Time: 20:38 Medications Administered Discontinued Medications Generic Name Dose Route Start Last Admin Trade Name Freq PRN Reason Stop Dose Admin Acetaminophen 650 mg 05/13/24 19:26 05/13/24 19:33 Acetaminophen 325 Mg Tablet PO 05/13/24 19:27 650 mg ONCE ONE Administration Sodium Chloride 1,000 mls @ 999 mls/hr 05/13/24 18:00 05/13/24 20:22 Ns IV 05/13/24 19:00 Infused .Q1H1M ONE Infusion Loperamide HCl 2 mg 05/13/24 18:00 05/13/24 18:17 Loperamide Hcl 2 Mg Capsule PO 05/13/24 18:01 2 mg ONCE ONE Administration Medical Decision Making Differential Diagnosis Differential Diagnoses: The differential diagnosis associated with the presentation includes (Dehydration, electrolyte derangement, severe anemia, rectal bleed, upper respiratory infection.) Admission/Observation Consideration of admission/observation: Escalation of care including admission/observation considered Lab Data MDM Lab Attestation statement: I reviewed the patient's lab results. 05/13/24 15:41 05/13/24 15:41 Labs: Lab Results 05/13/24 05/13/24 Range/Units 15:41 18:07 WBC 8.4 (4.8-10.8) X10*3/uL RBC 4.49 (4.20-5.50) X10*6/uL Hgb 13.5 (12.0-16.0) g/dl Hct 40.3 (37.0-47.0) % MCV 89.8 (80.0-98.0) fL MCH 30.1 (27.0-33.0) pg MCHC 33.5 (31.0-35.0) g/dl RDW 13.2 (11.0-16.0) % Plt Count 260 (160-400) X10*3/uL MPV 10.3 (9.4-12.3) fL Immature Gran % (Auto) 0.2 (0.0-0.4) % Neut % (Auto) 74.1 H (45-73) % Lymph % (Auto) 17.1 L (20-40) % [place] % (Auto) 6.3 (2-11) % Eos % (Auto) 1.5 (0-4) % Baso % (Auto) 0.8 (0-2) % Lymph # (Auto) 1.4 (1.2-4.9) X10*3/uL [place] # (Auto) 0.5 (0.1-1.2) X10*3/uL Eos # (Auto) 0.1 (0.0-0.4) X10*3/uL Baso # (Auto) 0.1 (0.0-0.2) X10*3/uL Abs Immat Gran (auto) 0.02 (0.00-0.03) X10*3/uL Absolute Neuts (auto) 6.3 (2.0-8.3) x10*3/uL Absolute Nucleated RBC 0.000 (0.0-0.012) X10*3/uL Nucleated RBC % (auto) 0.0 (0.0-0.2) /100WBC Sodium 144 (135-145) mmol/L Potassium 4.7 D (3.3-5.1) mmol/L Chloride 108 (96-108) mmol/L Carbon Dioxide 26 (22-29) mmol/L Anion Gap 15 (12-20) BUN 13 (9-16) mg/dL Creatinine 0.73 (0.5-1.4) mg/dL Estim Creat Clear Calc 73.0 Estimated GFR > 60 Random Glucose 87 (60-115) mg/dL Calcium 9.8 (8.4-10.2) mg/dL Magnesium 2.0 (1.6-2.6) mg/dL Total Bilirubin 0.4 (0.0-1.0) mg/dL Direct Bilirubin 0.1 (0.0-0.5) mg/dL AST 24 (5-31) U/L ALT 17 (0-31) U/L Alkaline Phosphatase 79 (39-117) U/L Total Protein 8.5 H (6.5-8.0) g/dL Albumin 4.2 (3.5-5.0) g/dL Lipase 36 (8-78) U/L Urine Color Yellow Urine Appearance Clear Urine pH 7.0 (5.0-9.0) Ur Specific [place] 1.020 (1.005-1.025) Urine Protein Negative (Neg-Trace) mg/dL Urine Glucose (UA) Negative (Negative) mg/dL Urine Ketones Trace (Negative) mg/dL Urine Blood Negative (Negative) Urine Nitrite Negative (Negative) Ur Leukocyte Esterase Negative (Negative) Stool Occult Blood NEGATIVE (NEGATIVE) Influenza Type A (PCR) NEGATIVE (Negative) Influenza Type B (PCR) NEGATIVE (Negative) RSV RNA Qual (PCR) NEGATIVE (Negative) SARS-CoV-2 RNA (RT-PCR) POSITIVE A (Negative) Discharge Plan Discharge Clinical Impression: COVID-19, Chronic abdominal pain Patient Disposition: Home, Self-Care Instructions: Abdominal Pain (ED), COVID-19 (Coronavirus Disease 2019) (ED) Additional Instructions: Follow-up with your portrait consultant cj. Continue with your prescribed medication as a directed by your portrait consultant. Keep your appointment with vascular surgeon tomorrow as scheduled. Prescriptions: No Action docusate sodium [Colace] 100 mg capsule 200 mg PO DAILY Qty: 60 0RF polyethylene glycol 3350 [Miralax] 17 gram/dose powder 17 g PO DAILY Qty: 510 0RF phenazopyridine [Pyridium] 200 mg tablet 200 mg PO TID PRN (Reason: pain) Qty: 6 0RF ibuprofen 600 mg tablet 600 mg PO Q8H PRN (Reason: pain) Qty: 30 0RF lorazepam [Ativan] 1 mg tablet 1 mg PO BID PRN (Reason: anxiety) Qty: 8 0RF oxycodone 5 mg capsule 5 mg PO Q8H PRN (Reason: pain) 3 Days Qty: 9 0RF Rx Instructions: Partial Fill upon patient request. Side effects of drowsiness. Not take at work or while driving venlafaxine 150 mg capsule,extended release 24hr 150 mg PO DAILY azelastine 137 mcg (0.1 %) spray,non-aerosol 2 spray intranasal BID fluticasone propionate 50 mcg/actuation spray,suspension 1 spray intranasal BID hydrocortisone 1 % cream with perineal applicator 1 appl topical BID eszopiclone 2 mg tablet 2 mg PO BEDTIME PRN (Reason: insomnia) tramadol 50 mg tablet 50 mg PO Q6H PRN (Reason: severe pain) famotidine 20 mg tablet 20 mg PO BID pantoprazole 40 mg tablet,delayed release (DR/EC) 40 mg PO DAILY buspirone 30 mg tablet 30 mg PO BID loratadine 10 mg capsule 10 mg PO DAILY risperidone [Risperdal] 2 mg tablet 2 mg PO DAILY gabapentin 100 mg capsule 100 mg PO BID Referrals: Daphne Almanza MD [Primary Care Provider] - Print Language: Togolese
[2024-05-13 15:47] LABS: MANUAL DIFF FLAG NO
[2024-05-13 15:48] LABS: Basophils Absolute Auto 0.1 X10*3/uL (0.0-0.2); Basophils Percent Auto 0.8 % (0-2); Eosinophils Absolute Auto 0.1 X10*3/uL (0.0-0.4); Eosinophils Percent Auto 1.5 % (0-4); Hematocrit 40.3 % (37.0-47.0); Hemoglobin 13.5 g/dl (12.0-16.0); Imm Gran Abs Auto 0.02 X10*3/uL (0.00-0.03); Imm Gran Pct Auto 0.2 % (0.0-0.4); Lymphocytes Absolute Auto 1.4 X10*3/uL (1.2-4.9); Lymphocytes Percent Auto 17.1 % (20-40); Mean Corpuscular HGB Conc 33.5 g/dl (31.0-35.0); Mean Corpuscular Hemoglobin 30.1 pg (27.0-33.0); Mean Corpuscular Volume 89.8 fL (80.0-98.0); Mean Platelet Volume 10.3 fL (9.4-12.3); Monocytes Absolute Auto 0.5 X10*3/uL (0.1-1.2); Monocytes Percent Auto 6.3 % (2-11); Neutrophils Absolute Auto 6.3 x10*3/uL (2.0-8.3); Neutrophils Percent Auto 74.1 % (45-73); Platelet Count 260 X10*3/uL (160-400); Red Blood Count 4.49 X10*6/uL (4.20-5.50); Red Cell Distribution Width 13.2 % (11.0-16.0); White Blood Count 8.4 X10*3/uL (4.8-10.8)
[2024-05-13 16:16] LABS: Alanine Aminotransferase 17 U/L (0-31); Albumin Level 4.2 g/dL (3.5-5.0); Anion Gap 15 (12-20); Aspartate Amino Transferase 24 U/L (5-31); Bilirubin Direct 0.1 mg/dL (0.0-0.5); Bilirubin Total 0.4 mg/dL (0.0-1.0); Blood Urea Nitrogen 13 mg/dL (9-16); Calcium 9.8 mg/dL (8.4-10.2); Carbon Dioxide 26 mmol/L (22-29); Chloride 108 mmol/L (96-108); Estimated Glomerular Filt Rate > 60; Glucose Random 87 mg/dL (60-115); Lipase 36 U/L (8-78); Potassium 4.7 mmol/L (3.3-5.1); Sodium 144 mmol/L (135-145); Total Protein 8.5 g/dL (6.5-8.0)
[2024-05-13 16:53] LABS: Alkaline Phosphatase 79 U/L (39-117)
[2024-05-13] MEDS: Loperamide HCl 2 MG CAPSULE PO (18:17)
[2024-05-13] MEDS: 0.9 % Sodium Chloride 1,000 ML 999 ML IV (18:17)
[2024-05-13 18:19] LABS: OBS Int Ctl Valid YES; OBS1 NEGATIVE (NEGATIVE)
[2024-05-13 18:22] VITALS: BP 146/67; PULSE 60
[2024-05-13 18:23] VITALS: BP 146/72; BP 154/73; PULSE 65; PULSE 69
[2024-05-13 18:42] LABS: Color Urine Yellow; Glucose Urine UA Negative (Negative); Leukocyte Esterase Urine Negative (Negative); Nitrite Urine Negative (Negative); Urine Blood Negative (Negative); Urine Ketones Trace mg/dL (Negative); Urine Protein Negative (Neg-Trace)
[2024-05-13 18:44] LABS: Appearance Urine Clear
[2024-05-13 18:46] VITALS: BP 148/70; PULSE 76; RESP 18; TEMP 36.8; O2SAT 99
[2024-05-13 18:55] LABS: Influenza A PCR NEGATIVE (Negative); Influenza B PCR NEGATIVE (Negative); Resp Syncy Virus RNA Qual PCR NEGATIVE (Negative); SARS COV2 PCR INHOUSE POSITIVE (Negative)
[2024-05-13] MEDS: Acetaminophen 325 MG TABLET 650 MG PO (19:33)
[2024-05-13 20:45] VITALS: BP 148/70; PULSE 76; RESP 18; TEMP 36.8; O2SAT 99
== END 2024-05-13 21:09 | disposition home or self-care (01) ==
PROVIDERS: Physician Assistant Medical; Emergency Provider Emergency Medicine; PCP Internal Medicine
DX: U07.1 COVID-19 (principal); R11.2 Nausea with vomiting, unspecified; E86.0 Dehydration; R10.2 Pelvic and perineal pain; Z79.899 Other long term (current) drug therapy; Z87.891 Personal history of nicotine dependence
CPT/HCPCS: 0241U; 36415; 80048; 80076; 81003; 82272; 83690; 83735; 85025; 96360; 96361; 99284

== ENCOUNTER 2024-05-16 14:15 | Outpatient (AMB) | payer OTHER, SELFPAY ==
[2024-05-16 14:20] VITALS: BMI 26.6
--- NOTE | 2024-05-16 14:20 | MHC.OFFVIS ---
Vital Signs 05/16/24 14:20 Height 5 ft 3 in Weight 150 lb BMI 26.6 Intake Visit Reasons: [employer]/ED ref SMA stenosis s/p CTA Abd/pelvis 05/01/24 Intake Note: ED referral for SMA stenosis s/p CTA Abd/pelvis 05/01/24. Pt states abdominal pain w/ or w/o eating x 3 months Instrument Sterilizer Required: No Accompanied by: Self / Same As Patient Allergies aspirin [ASA] Allergy (Intermediate, Verified 05/16/24 14:21) NAUSEA & VOMITING, stomach upset, nausea and vomiting HPI HPI [employer]/ED ref SMA stenosis s/p CTA Abd/pelvis 05/01/24: Details: Very pleasant 63-year-old female presents for evaluation regarding chronic mesenteric ischemia. She has had recurrent bouts of abdominal pain. She has been following gastroenterology at [facility] for chronic stomach issues. She has had prior CT abdomen and pelvis. She reports that she is able to tolerate food when it is extremely bland. She is able to tolerate rice and beans. Although she does report that there is a 5-7 lb weight loss. She does feel bloated on occasion. She is a nonsmoker and reports that she quit smoking about 16 years ago and she is a nondiabetic. She now presents to us for vascular evaluation [facility] Medical History Carpal tunnel syndrome Asthma Vocal cord anomaly Bloating Acid reflux Surgical History Hx of tubal ligation Social History Household Members Other:: alone Alcohol intake: never Patient Tobacco Use Status: Former Tobacco user Tobacco use type: Cigarette Years Smoked: quit 12 years ago Current occupational status: unemployed Review of Systems Const All systems reviewed & are unremarkable except as noted in HPI and below Reports no additional complaints ENT Reports Normal hearing present Card Denies chest pain, Denies chest pain at rest, Denies chest pain with activity and Denies pedal edema Resp Denies cough GI Denies abdominal pain Musc Denies abnormal gait, Denies muscle cramps and Denies radiating pain into limb Skin/Breast Denies skin ulcer and Denies wounds Neuro Reports Normal hearing present and Denies abnormal gait Psych Reports no additional complaints Physical Exam Vital Signs: BMI result Body Mass Index 26.6 Const General: cooperative, healthy appearing and comfortable Orientation/consciousness: oriented to person, oriented to place and oriented to time HEENT Head: Yes normal to inspection Neck Neck: Yes normal visual inspection Carotids: no bruits Chest Chest palpation & inspection: normal inspection of the chest Resp Effort & Inspection: normal respiratory effort and able to speak in complete sentences Auscultation: clear to auscultation bilaterally, no crackles, no rales, no rhonchi and no wheezes Cardio Rate: regular rate Rhythm: regular rhythm Heart sounds: S1 normal heart sound present and S2 normal heart sound present Bruits: no carotid bruits Peripheral pulses: Peripheral pulses 2+ throughout GI Inspection: Yes normal to inspection Skin Wounds: no wounds Hair: normal Neuro General: oriented to person, oriented to place and oriented to time Cranial nerves: Yes CN's II-XII intact bilaterally and Yes Normal hearing present Cognition (Neuro): normal cognition Motor exam (neuro): 5/5 motor strength present throughout Extrem Other: venous exam: No significant superficial varicosities or spider telangiectasias, minimal edema General: No clubbing, No cyanosis and No edema Psych Appearance: grossly normal Mental Status: mental status grossly normal Speech and movement: Normal speech and movement present Results Reviewed Results Reviewed: CT scan of abdomen demonstrates celiac axis is patent SMA there is roughly us 50% stenosis. SHUN is patent proximally. Written report and images reviewed of CT scan dated 05/01/2024. Assessment & Plan Assessment & Plan (1) Chronic mesenteric ischemia: Code(s): K55.1 - Chronic vascular disorders of intestine Category: Medical Plan: In short there is concern of chronic mesenteric ischemia in this patient. Upon reviewing CT scan it does appear that the SHUN celiac axis are patent. This may not lead to her current symptoms. In her symptomatology does not appear to match up with chronic mesenteric ischemia although there is some weight loss. I have taken the liberty ordering a mesenteric ultrasound to better elucidate the velocities within the vessels. We did discuss routine risk factor modification along with GI follow-up. She will follow up with us after testing. Thank you for allowing us to assist in her care. If there are any questions or concerns please do not hesitate to contact us. Orders: Orders US abdomen complete Today K55.1 - Chronic vascular disorders of intestine Coding Level of Care Code New Pt Level 4 (00685) Diagnoses Chronic mesenteric ischemia K55.1
--- OUTSIDE RECORDS SUMMARY | 2024-05-16 15:24 | XMS_ITS | Encounter Summary ---
Author Organization [facility] Address [address] [place] [address] Care Team Providers Care Convention Services Manager Name Role Phone Daphne Almanza MD Primary Care Provider [phone] Encounter Details Date Type Department Care Team (Late st Contact Info) Description 04/30/2024 Telephone Gastroenterology - [place] [address] [place] [address] Glen Nino PA [address] [place] [address] Social History Tobacco Use Types Packs/Day Years [...] for your loved ones. For example, child abuse worker or elderly care for an older adult? [...] What is your living situation? 0 04/15/2024 Comments No Sex and Gender Information Value Date Recorded Sex Assigned at Female 04/22/2024 11:24 AM EST Legal Sex Female 3:09 PM EST Gender Identity Female 04/22/2024 11:24 AM EST Sexual Orientation Straight 04/22/2024 11 :24 AM EST documented as of this encounter Progress Notes [...] Care Team (Late st Contact Info) Description 05/20/2024 10:10 AM EST Appointment Radiology Department - [address] [phone] 05/20/2024 10:30 AM EST Appointment Radiology Department - [address] [phone] 06/03/2024 2:10 PM EDT Appointment Radiology Department - [address] [phone] 07/09/2024 2:00 PM EDT Office Visit Urogynecology - [address] [phone] Kym Christine MD [address] [place] [phone] 07/18/2024 3:00 PM EDT Office Visit Adult Medicine [facility] - [address] [phone] Daphne Almanza MD [address] [place] [address] documented as of this encounter Visit Diagnoses Not on filedocumented in this encounter Additional Health Concerns Assessment Noted Time PHQ-9 Depression Total Score: 1 04/15/19 25 2:51 PM EST documented as of this encounter Care Teams Convention Services Manager Relationship Specialty Start Date End Date Daphne Almanza MD [address] [place] [address] PCP - General Internal Medicine 11/30/13 documented as of this encounter
--- OUTSIDE RECORDS SUMMARY | 2024-05-16 15:24 | XMS_ITS | Encounter Summary ---
Author Organization [facility] Address [address] [place] [address] Care Team Providers Care Increment Manager Name Role Phone Daphne Almanza MD Primary Care Provider [phone] Reason for Visit * Reason Onset Date Comments Medication Problem 04/29/2024 Encounter Details Date Type Department Care Team (Late st Contact Info) Description 04/29/2024 Telephone Gastroenterology - [place] [address] [place] [address] Glen Nino PA [address] [place] [address] Medication Problem Social History Tobacco Use Types [...] your loved ones. For example, child care education coordinator or elderly care for an older [...] she will be calling back. Maria Guadalupe Morales ADRYAN Ohara 04/30/24 10:02 AM Note Please [...] 10:10 AM EST Appointment Radiology Department - [address] [phone] 05/20/2024 10:30 AM EST Appointment Radiology Department - [address] [phone] 06/03/2024 2:10 PM EDT Appointment Radiology Department - [address] [phone] 07/09/2024 2:00 PM EDT Office Visit Urogynecology - [address] [phone] Kym Christine MD [address] [place] [address] 07/18/2024 3:00 PM EDT Office Visit Adult Medicine [facility] [address] [place] [address] Daphne Almanza MD [address] [place] [phone] documented as of this encounter Visit Diagnoses Not on filedocumented in this encounter Additional Health Concerns Assessment Noted Time PHQ-9 Depression Total Score: 1 04/15/19 25 2:51 PM EST documented as of this encounter Care Teams Increment Manager Relationship Specialty Start Date End Date Daphne Almanza MD [address] [place] [phone] PCP - General Internal Medicine 11/30/13 documented as of this encounter
--- OUTSIDE RECORDS SUMMARY | 2024-05-16 15:24 | XMS_ITS | Data Portability ---
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 Plan of Treatment Reminders Order Date Submit Date Provider Last Modified By Organization Details Last Modified Time Details Appointments None recorded. Lab None recorded. Referral None recorded. Procedures None recorded. Surgeries None recorded. Imaging None recorded. Medication Orders olopatadine 0.1 % eye drops 2022 023 [id number], [address] [place] [address], [id number], 3 16:15:39 ciprofloxac in 0.3 % eye drops 2022 023 [id number], [address] [place], [address], 3 16:15:39 Medrol (Constantin) 4 mg tablets in a dose pack 2022 023 [id number], [address] [place] [address], [id number], 3 15:36:43 Patient TargetsNo targets recorded. Patient Instructions Encounter Date Encounter Id Patient Instructions Last Modified By Organization Details Last Modified Time 04/06/2022 [id number] Eczema: Care Instructions Not available 04/06/2022 15:22:26 You were prescri bed steroids by mouth to help your symptoms resolve faster. You can expect to have increased energy, increased appetite, trouble falling asleep, skin flushing, and possibly some irritability while taking them. You should NOT take any additional Ibuprofen, Aleve, or Aspirin with the(steroid) Prednisone. If you need additional pain control, you may take Tylenol as long as you are not taking any other [id number] or prescription medications which already contain Acetaminophen (the same ingredient that is in Tylenol). Not available 04/06/2022 16:08:48 08/12/2022 [id number] Based on your presentation and exam, you are going diagnosed with Allergic Conjunctivitis. The following are my recommendations to help with your symptoms and this diagnosis: 1. Do not rub your eyes this can cause it to spread or damage the cornea of your eye. 2. Wash surfaces such as cell phones, remotes, door knob frequently, so if there is any infective component it will not spread to other. 3. Do not wear contacts for at least 1 week if you have contacts. 4. No makeup 5. You can take Ibuprofen or Tylenol for discomfort if you are not allergic to them. 6. If you get lubricating eye drops and put them in the refrigerator - this can help with itching and discomfort. You should be seen again if you develop any of the following symptoms 1. Eye pain or pressure behind the eye. 2. Redness or significant swelling of the eyelid or around the eye 3. Headache 4. Fever > 100.5 5. No improvement in current symptoms in the next 1 week. Thank you for using [facility] today, please feel free to contact us with any questions or concerns. [email or web address] Not available 08/12/2022 16:15:35 Reason for Referral None Reported. Problems Name Problem SNOMED Code Status Onset Date Resolution Date Notes Provider Name and Address Organization Details Recorded Time Gastroesophage al reflux disease 948052496 Active 2022 ANGEL lowery, PA - [facility] 3 14:39:43 Fibromyalgia 715596693 Active 2022 ANGEL lowery PA - [facility] 3 14:39:55 Anxiety 03279065 Active 2022 ANGEL lowery PA - [facility] 3 14:40:02 Asthma 942340944 Active 2022 ANGEL lowery PA - [facility] 3 14:40:09 Problem Notes None recorded. Procedures Surgical History Date Name Laterality Status Provider Name and Address Organization Details Recorded Time hysterectomy completed KERLINE DUTTA PA - [facility] 08/12/2022 15:38:24 Carpal tunnel surgery completed KERLINEOTF DUTTA PA - [facility] 08/12/2022 15:38:40 Imaging Results None recorded. Procedure Notes None recorded. Medical Equipment None Reported. Allergies Allergen ID Allergen Name Allergen Category Reaction Reaction Severity Criticality Documentation Date Start Date Code Code System Note Provider Name and Address Organization Details Recorded Time 839150 aspirin medicatio n gi bleed Not available Not available 04/06/2022 1191 RxNorm ANGEL MARYAN null, PA - [facility] 14:36:43 990578 apple extract food anaphylax is Not available Not available 04/06/2022 17874 65 RxNorm ANGEL MARYAN null, PA - [facility] 3 14:37:20 Medications Name Sig Start Date Stop Date Status Note LastModified by Organization Details LastModified Time cyclobenzap rine 10 mg tablet TAKE 1 TABLET BY MOUTH EVERY 8 HOURS active Not Available Not Available No t Available azelastine 0.05 % eye drops active Not Available Not Available Not Available prednisone 10 mg tablet TAKE 3 TABLETS DAILY X3 DAYS, THEN 2 TABS DAILY X3 DAYS, THEN 1 TAB DAILY X3 DAYS active Not Available Not Available No t Available polyethylen e glycol 3350 17 gram oral powder packet TOME UN SOBRE AL D A POR V A ORAL active Not Available Not Available No t Available cetirizine 10 mg tablet TOME CHARLES TABLETA POR V A ORAL TODOS LOS D FOR 30 DAYS active Not Available Not Available No t Available senna 8.6 mg tablet TOME CHARLES TABLETA TODOS LOS D active Not Available Not Available No t Available phenazopyri dine 200 mg tablet PLEASE SEE ATTACHED FOR DETAILED DIRECTION S 08/12 completed Not Available Not Available Not Available Medrol (Constantin) 4 mg tablets in a dose pack Take 1 dose pk by oral route for 6 days. 08/12 completed Not Available Not Available Not Available prednisone 20 mg tablet TAKE 3 TABS POR V A ORAL EVERY MORNING X 3 DAYS, 2 TABS X 3 DAYS, THEN 1 TAB X 3 DAYS active Not Available Not Available No t Available venlafaxine ER 150 mg capsule,ext ended release 24 hr TAKE 1 CAPSULE BY MOUTH ONCE A DAY DIRECTION S IN [place] AND [place] active Not Available Not Available No t Available fexofenadin e 180 mg tablet TOME CHARLES TABLETA TODOS LOS D 08/12 completed Not Available Not Available Not Available sulfamethox azole 800 mg-trimetho prim 160 mg tablet TAKE 1 TABLET BY MOUTH TWICE A DAY 08/12 completed Not Available Not Available Not Available tramadol 50 mg tablet TAKE 1 TABLET BY MOUTH EVERY 6 HOURS NEEDED FOR PAIN 08/12 completed Not Available Not Available Not Available risperidone 2 mg tablet TOME CHARLES TABLETA POR V A ORAL DOS VECES AL D A active Not Available Not Available No t Available meloxicam 7.5 mg tablet TOME CHARLES TABLETA LOS D active Not Available Not Available No t Available famotidine 20 mg tablet TAKE 1 TAB BY MOUTH TWICE DAILY NEEDED FOR HEARTBURN active Not Available Not Available No t Available triamcinolo ne acetonide 0.025 % topical cream APPLY TO AFFECTED AREA TWICE DAILY FOR 2 WEEKS. active Not Available Not Available No t Available ciprofloxac in 0.3 % eye drops PONGA CHARLES GOTA EN GUILHERME AFECTADO CADA CUATRO HORAS POR 7 MOTT active Not Available Not Available No t Available phenazopyri dine 100 mg tablet TAKE 1 TABLET BY MOUTH 3 TIMES DAILY NEEDED FOR PAIN FOR UP TO 3 DAYS. active Not Available Not Available No t Available pantoprazol e 40 mg tablet,yohan yed release TOME CHARLES TABLETA LOS D active Not Available Not Available No t Available buspirone 30 mg tablet TOME CHARLES TABLETA DOS VECES AL D A active Not Available Not Available No t Available olopatadine 0.1 % eye drops INSTILL 1 DROP TWICE A DAY BY OPHTHALMI C ROUTE FOR 30 DAYS. active Not Available Not Available No t Available docusate sodium 100 mg capsule TOME CHARLES C PSULA DOS VECES AL D A 04/06 completed Not Available Not Available Not Available gabapentin 300 mg capsule TOME 1 C PSULA POR V A ORAL AL ACOSTARSE active Not Available Not Available No t Available Banophen 25 mg capsule TOME CHARLES C PSULA TODOS LOS D AL ACOSTARSE active Not Available Not Available No t Available zaleplon 10 mg capsule TOME 1 C PSULA POR V A ORAL AL ACOSTARSE CUANDO SEA NECESARIO PARA DORMIR active Not Available Not Available No t Available gabapentin 100 mg capsule PLEASE SEE ATTACHED FOR DETAILED DIRECTION S active Not Available Not Available No t Available lorazepam 1 mg tablet TOME 1/2 TABLETA POR V A ORAL CADA OCHO HORAS FOR ANXIETY active Not Available Not Available No t Available zaleplon 5 mg capsule TOME 1 C PSULA POR V A ORAL AL ACOSTARSE CUANDO SEA NECESARIO FOR SLEEP active Not Available Not Available No t Available azelastine 137 mcg (0.1 %) nasal spray SPRAY 2 SPRAYS BY INTRANASA L ROUTE DOS VECES AL D A active Not Available Not Available No t Available fluticasone propionate 50 mcg/actuati on nasal spray,suspe nsion INSTILL 1 SPRAY IN EACH NOSTRIL TWICE DAILY active Not Available Not Available No t Available Ventolin HFA 90 mcg/actuati on aerosol inhaler PLEASE SEE ATTACHED FOR DETAILED DIRECTION S active Not Available Not Available No t Available nitrofurant oin monohydrate /macrocryst als 100 mg capsule TOME CHARLES C PSULA DOS VECES AL D A POR 5 D 04/06 completed Not Available Not Available Not Available eszopiclone 2 mg tablet TOME CHARLES TABLETA TODOS LOS D AL ACOSTARSE CUANDO SEA NECESARIO PARA DORMIR active Not Available Not Available No t Available peg 3350-electr olytes 236 gram-22.74 gram-6.74 gram-5.86 gram solution active Not Available Not Available Not Available Paxlovid 300 mg (150 mg x 2)-100 mg tablets in a dose pack TAKE 3 TABLETS BY MOUTH TWICE DAILY FOR 5 DAYS DIRECTED 04/06 completed Not Available Not Available Not Available Vitals Date Recorded Body height Body mass index (BMI) Body weight Pain severity - 0-10 verbal numeric rating [Score] - Reported Respiratory rate Oxygen saturation Oxygen saturation in Arterial blood by Pulse oximetry Heart rate Body temperature Systolic blood pressure Diastolic blood pressure Provider Name and Address Organization Details Last Updated DateTime 3 160.02 cm 27.5 kg/m2 44417.8 2 g 5 18 /min 98 % 98 % 60 /min 98 [degF] 155 mm[Hg] 78 mm[Hg] KERLINE DUTTA PA - [facility] 3 15:39:54 Date Recorded Body height Body mass index (BMI) Body weight Oxygen saturation Oxygen saturation in Arterial blood by Pulse oximetry Heart rate Respiratory rate Body temperature Systolic blood pressure Diastolic blood pressure Provider Name and Address Organization Details Last Updated DateTime 3 160.02 cm 27.6 kg/m2 66417.4 1 g 99 % 99 % 65 /min 16 /min 98.1 [degF] 129 mm[Hg] 73 mm[Hg] ANGEL MARYAN PA - [facility] 3 14:42:37 Social History Question Answer Notes LastModified by Organizat ion Details LastModified Time Tobacco Smoking Status Never Smoker KERLINE lowery PA - [facility] 08/12/2022 15:38:01 What Is Your Level Of Alcohol Consumption? None Information not available 08/12/2022 Do You Use Any Illicit Or Recreational Drugs? No [email or web address] Information not available 08/12/2022 Have You Recently Traveled Abroad? No [email or web address] Information not available 08/12/2022 Do You Or Have You Ever Used Any Other Forms Of Tobacco Or Nicotine? No [email or web address] Information not available 08/12/2022 Sex: Unknown Functional Status None recorded. Mental Status None recorded. Family History Nothing Reported. Medical History No medical history recorded. Gynecological History Statement/Question Response Date of LMP Obstetrics History GPAL:G 0 P 0 0 0 0 Immunizations Vaccine Type Date Status Note Provider Nam e and Address Organization Details Recorded Time COVID-19 vaccine, vector-nr, rS-Ad26, PF, 0.5 mL 1 completed ANGEL MARYAN null, PA - [facility] 04/06/2022 14:36:14 Td (adult), 2 Lf tetanus toxoid, preservative free, adsorbed 9 completed ANGEL MARYAN null, PA - [facility] 04/06/2022 14:36:14 Influenza, split virus, quadrivalent, PF 9 completed ANGEL MARYAN null, PA - [facility] 04/06/2022 14:36:14 pneumococcal conjugate PCV 7 7 completed ANGEL MARYAN null, PA - [facility] 04/06/2022 14:36:14 influenza, split (incl. purified surface antigen) 3 completed ANGEL MARYAN null, PA - [facility] 04/06/2022 14:36:14 MMR 2 completed ANGEL MARYAN null, PA - [facility] 04/06/2022 14:36:14 Influenza, split virus, trivalent, preservative 7 completed ANGEL MARYAN null, PA - [facility] 04/06/2022 14:36:14 COVID-19 vaccine, vector-nr, rS-Ad26, PF, 0.5 mL 1 completed ANGEL MARYAN null, PA - [facility] 04/06/2022 14:36:14 pneumococcal polysaccharide PPV23 9 completed ANGEL MARYAN null, PA - [facility] 04/06/2022 14:36:14 Influenza, split virus, quadrivalent, PF 5 completed ANGEL MARYAN null, PA - [facility] 04/06/2022 14:36:14 Influenza, MDCK, quadrivalent, PF 2 completed ANGEL MARYAN null, PA - [facility] 04/06/2022 14:36:14 Tdap 2 completed ANGEL MARYAN null, PA - [facility] 04/06/2022 14:36:14 Influenza, MDCK, quadrivalent, PF 1 completed ANGEL MARYAN null, PA - [facility] 04/06/2022 14:36:14 Influenza, MDCK, quadrivalent, PF 0 completed ANGEL MARYAN null, PA - [facility] 04/06/2022 14:36:14 influenza, split (incl. purified surface antigen) 2 completed ANGEL MARYAN null, PA - [facility] 04/06/2022 14:36:14 Past Encounters Encounter ID Performer Location Encounter Start Date Encounter Closed Date Diagnosis/Indication Diagnosis SNOMED-CT Code Diagnosis ICD10 Code Diagnosis Note [id number] [address] [place] [address] 03/14/2018 16:16:14 03/14/2018 16:59:15 [id number] Carmen Preciado MD [address] [place] [address] 04/06/2022 13:41:28 04/06/2022 15:30:14 Pruritic disorder 733276312 L29.9 You will need to follow up with your PCP or a specialist such as an [facility] for this ongoing symptom [id number] [facility] [address] [address] [place] [address] 08/12/2022 13:52:50 08/12/2022 16:17:02 Allergic conjunctivitis 511023333 H10.13 Blood pressure was elevated - try and monitor. Avoid Decongesta nts. Health Concerns Section Related Observation LastModified by Organization Detai ls LastModified Time None Recorded Concern Status LastModified by Organization Details LastModified Time None Recorded Advance Directives Directive None Recorded Payers Encounter Date Sequence Insurance Name Policy Number Policy Caraballo Covered Member ID Caraballo Member ID Guarantor Name 03/14/2018 1 [facility] (MEDICAID HMO) DAVID Eldridge [id number] Nila Banks 04/06/2022 1 [facility] (MEDICAID HMO) DAVID Eldridge [id number] Nila Banks 08/12/2022 1 [facility] (MEDICAID HMO) DAVID Eldridge [id number] Nila Banks Notes Date Note Type Note Provider Name and Address Organization Details Recorded Time 3 text/html Rash / Skin LesionReported bypatient.Quality:itchy Context:No new products, detergents, creams, soaps, TRuied antihistamines and one ciourse steroiid 2 weeks ago. has been to both PCP and UCNotes:No rash present.Feels very itchy aCrmen Preciado MD [address] [place], [address], [place] - [facility] 04/06/2022 16:09:05 3 text/html Eye problemsReported bypatient.source of patient informationInformation obtained from patient; Patient arrived at Urgent Care ambulatory Location:bilateral Eye Symptoms:no sensitivity to light;redness;discharge;wa [place];itching Severity:mild Onset/Timinweeks; was coming and going but not persistent Context:allergies; only wear glasses. Modifying Factors:Trying Zyrtec and eyedrop.Notes:The patient reports that she gets this every year. She states that it is so irritating. ADRYAN MARTINEZ [address] [place], [address], [place] - [facility] 08/12/2022 16:20:55 OBGyn Episode No OBEpisode recorded.
--- OUTSIDE RECORDS SUMMARY | 2024-05-16 15:24 | XMS_ITS | Clinical Summary ---
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 48 mL 5 02/28/20 24 Active azelastine (ASTELIN) 137 mcg (0.1 %) nasal spray INSTILL 2 SPRAYS INTO EACH NOSTRIL TWICE A DAY DIRECTED 30 mL 5 02/28/20 24 Active acetaminophen (TYLENOL 8 HOUR) 650 mg 8 hr tablet TOME CHARLES TABLETA DOS VECES AL AYAZ 06/16/19 24 Active busPIRone (BUSPAR) 30 mg tablet TOME CHARLES TABLETA DOS VECES AL D A 11/20/19 23 Active eszopiclone (LUNESTA) 2 mg tablet JENNYFER LOONEY GARRISON 11/15/19 23 Active famotidine (PEPCID) 20 mg tablet Take 1 Tablet by mouth 2 times daily as needed for Heartburn. 02/24/20 23 Active fexofenadine (LUANA) 180 mg tablet Take 1 tablet by mouth daily. 02/24/20 21 Active gabapentin (NEURONTIN) 100 mg capsule PLEASE SEE ATTACHED FOR DETAILED DIRECTIONS 12/08/19 22 Active LORazepam (ATIVAN) 0.5 mg tablet JENNYFER LOONEY 12/29/19 23 Active risperiDONE (RisperDAL) 2 mg tablet JENNYFER LOONEY 07/22/19 16 Active venlafaxine XR (EFFEXOR-XR) 150 mg 24 hr capsule 150 mg. 1 Tab daily 07/22/19 16 Active albuterol HFA (ProAir HFA) 90 mcg/actuation inhaler Take 2 Puffs by mouth every 4 hours as needed for Cough or Wheezing. 2 Puffs every 4 hours as needed 02/07/20 23 Active pantoprazole (PROTONIX) 40 mg EC tablet Take 1 tablet (40 mg total) by mouth 1 (one) time each day. Take in am on empty stomach wait 30 mins and then eat to activate the medication 30 each 04/12/19 25 Active hydrocortisone (Preparation H Hydrocortisone ) 1 % topical cream Apply topically 2 (two) times a day. 30 g 04/12/19 25 026 Active oxyCODONE (OXY-IR) 5 mg immediate release capsule TAKE 1 CAPSULE BY MOUTH EVERY 8 HOURS NEEDED FOR PAIN FOR 3 DAYS 05/01/19 25 Active amoxicillin-cl avulanate (AUGMENTIN) 875-125 mg per tablet Take 1 tablet by mouth 2 (two) times a day for 14 days. 28 each 05/06/19 25 025 Active phenyleph-pram bpyu-scrql-h.p et (Preparation H Maximum Strength) 0.25-1 % cream Insert 0.0385 each into the rectum 2 (two) times a day if needed (rectal irritation). 30 g 05/06/19 25 Active aluminum-magne sium hydroxide-nicole thicone (MAALOX) 200-200-20 mg/5 mL suspension Take 30 mL by mouth 4 (four) times a day (before meals and nightly). 769 mL 05/06/19 25 Active loperamide (Imodium A-D) 2 mg tablet Take 1 tablet (2 mg total) by mouth 4 (four) times a day if needed for diarrhea. 60 tablet 05/10/19 25 Active ondansetron (ZOFRAN) 4 mg tablet Take 1 tablet (4 mg total) by mouth 3 (three) times a day. 50 tablet 05/10/19 25 Active famotidine (Pepcid) 20 mg tablet Take 1 tablet (20 mg total) by mouth 2 (two) times a day if needed for heartburn. 60 each 04/12/19 025 Discontinued phenyleph-pram vsri-mocvk-t.p et (Preparation H Maximum Strength) 0.25-1 % cream Insert 0.0385 each into the rectum 2 (two) times a day if needed (rectal irritation). 60 g 04/12/19 025 Discontinued ciprofloxacin (CIPRO) 500 mg tablet Take 1 tablet (500 mg total) by mouth 2 (two) times a day for 14 days. 28 each 04/12/19 25 025 metroNIDAZOLE (FLAGYL) 500 mg tablet Take 1 tablet (500 mg total) by mouth 2 (two) times a day for 14 days. Do not use mouth wash or consume alcohol until 48 hours after last dose 28 each 04/12/19 25 025 dicyclomine (BENTYL) 20 mg tablet Take 1 tablet (20 mg total) by mouth 2 (two) times a day for 10 days. 20 tablet 04/18/19 025 traMADoL (ULTRAM) 50 mg tablet Take 1 tablet (50 mg total) by mouth every 6 (six) hours if needed for severe pain for up to 3 days. Max Daily Amount: 200 mg 12 tablet 04/18/19 25 025 Active Problems Problem Noted Date Diagnosed Date [...] 07/13/2021 Obstructive sleep apnea 05/24/2021 Overview (03/08/2024): [facility] Home sleep test 05/13/2021; weight 155; BMI 27; AHI 6, AI 1, HI 5. 7 obstructive apneas, 1 central apnea and 31 hypopneas. Average oxygen saturation 95% with oxygen graciela 85%. Obstructive sleep apnea-mild with mostly hypopneas and some obstructive and central apneas without nocturnal hypoxemia based on 2021 home sleep test. Fibromyalgia 12/27/2019 Overview (03/08/2024): Dr. Padilla ([facility] Rheum) Bilateral carpal tunnel syndrome 05/09/2018 Overview (03/08/2024): S/p release on left side only Overweight (BMI 25.0-29.9) 05/09/2018 Panic attack 05/09/2018 Overview (03/08/2024): Dr. Kumar at [facility] Right ovarian cyst 05/09/2018 Overview (03/08/2024): Last [...] depression 08/14/2015 Overview (03/08/2024): Dr. Kumar at [facility] Asthma 08/14/2015 GERD (gastroesophageal reflux disease) 6 Encounters Date Type Department Care Team Description [facility] [address] [phone] Andrew Nino PA Medication Problem 05/07/2024 10:15 AM EST Office Visit Adult Medicine [address] [phone] Mavis Osborn PA Pain of both breasts (Primary Dx) 05/07/2024 Telephone Adult Medicine [address] [phone] Rhiannon Kumar [place] Appointment 05/06/2024 9:20 AM EST Office Visit Gastroenterology [facility] [address] [phone] Andrew Nino PA Dyspepsia (Primary Dx); Bloating; Enteritis; Rectal irritation; Vascular abnormality 05/01/2024 Telephone Gastroenterology - [place] [address] [phone] Andrew Nino PA 04/30/2024 Telephone Gastroenterology [facility] [address] [phone] Andrew Nino PA 04/29/2024 Telephone Gastroenterology [facility] [address] [phone] Andrew Nino PA Medication Problem 04/26/2024 4:16 PM EST - 04/26/2024 11:59 PM EST Hospital Encounter [facility] CT Scan [address] [place] [phone] Diverticulosis; H/O diverticulitis of colon; LLQ pain; Elevated liver enzymes; Gastroesophageal reflux disease without esophagitis; Rectal irritation Discharge Disposition: Home or Self Care 04/25/2024 10:45 AM EST Office Visit Obstetrics and Gynecology [address] [phone] Maria Victoria Ellington MD Pelvic pressure in female (Primary Dx); Vaginal pain 04/18/2024 7:25 AM EST - 04/18/2024 10:23 AM EST [facility] Emergency [address] [place] [phone] Ralph Menard MD Vaginal pain (Primary Dx); Rectal pain Discharge Disposition: Home or Self Care 04/15/2024 3:00 PM EST Office Visit Adult [address] [phone] Stephanie Barragan PA Pelvic pressure in female (Primary Dx); Decreased GFR; Elevated LFTs; Diverticulitis; Rectal pain 04/12/2024 1:20 PM EST Office Visit Gastroenterology [facility] 175 [facility] [address] [phone] Andrew Nino PA Diverticulosis (Primary Dx); H/O diverticulitis of colon; LLQ pain; Elevated liver enzymes; Gastroesophageal reflux disease without esophagitis; Rectal irritation 04/11/2024 Telephone Adult [address] [phone] Daphne Almanza MD er follow up ([facility] /04/10/24) 04/08/2024 Telephone Obstetrics and Gynecology [address] [phone] Maria Victoria Ellington MD er follow up 04/02/2024 3:30 PM EST Office Visit Adult [address] [phone] Mavis Osborn PA Vaginal pain (Primary Dx); Elevated LFTs 04/02/2024 Telephone Obstetrics and Gynecology [address] [phone] Maria Victoria Ellington MD 03/24/2024 12:06 AM EST - 03/24/2024 3:44 AM EST Emergency [facility] Emergency [address] [place] [phone] Jaxson Mahan MD Diverticulitis (Primary Dx) Discharge Disposition: Home or Self Care 03/13/2024 Telephone Adult Medicine [address] [phone] Daphne Almanza MD Abdominal Pain; er follow up 03/11/2024 9:15 AM EST Ancillary Procedure [facility] [address] [place] [address] [place] [phone] Chest pain, unspecified type 03/06/2024 Nurse Triage Adult Medicine [address] [phone] Daphne Almanza MD Abdominal Pain from Last 3 Months Immunizations Name Administration Dates Next Due Influenza Quadravalent, MDCK , 0.5ml, preservative free (Flucelvax) 6mo and older 02/06/2023,12/21/2021,03/04/2021,02/10 Influenza trivalent, 0.5mL, preservative free (Fluarix; FluLaval; Fluzone) ages 6mo and older (Afluria) 3 years and older 12/08/2023,03/10/2019,02/19/2013,01/12 Influenza trivalent, with pr eservative (Fluzone; Afluria) 6mo and older 05/11/2016,03/04/2015 [employer] SARS-CoV-2 COVID -19, vector-nr, [id number], preservative free [...] PROCEDURE: HISTORICAL TUBAL LIGATION ESOPHAGOGASTRODUODENOSCOPY 08/20/2015 PROCEDURE: [place] ESOPHAGOGASTRODUODENOSCOPY TRANSORAL DIAGNOSTIC; COMMENT: Dr. De La Rosa - small H/H o/w normal. COLONOSCOPY 04/20/2012 PROCEDURE: HISTORICAL COLONOSCOPY; COMMENT: [facility] - normal CARPAL TUNNEL RELEASE Left PROCEDURE: HISTORICAL CARPAL TUNNEL REL ESOPHAGOGASTRODUODENOSCOPY PROCEDURE: [place] EGD TRANSORAL BIOPSY SINGLE/MULTIPLE; COMMENT: 08/[address] Ozuna HYSTERECTOMY PROCEDURE: HISTORICAL HYSTERECTOMY; COMMENT: fibroids and menorrhagia Medical History Medical History Date Comments Asthma 08/14/2015 DX:Asthma Anxiety 08/14/2015 DX:Anxiety GERD (gastroesophageal reflux disease) 6 DX:GERD (gastroesophageal reflux disease) Thyroid nodule 05/09/2017 [...] infection 11/30/2021 DX:COVI D-19 virus infection; COMMENT: 8.28.22 Choking DX:Choking Family History Medical History Relation [...] care for your loved ones. For example, special needs child caregiver or elderly care for an older adult? [...] Orientation Straight 04/22/2024 11 :24 AM EST Obstetrics History Para Term AB IAB SAB Ectopic Multiple Livin g Live Births 10 8 8 2 2 7 8 Date Outcome GA Total Labor Labor/3rd Weight Sex Type Anes PTL Stacy A1 A5 Name Clin SAB SAB Living Term F Term Living Term Living Term Living Term Living Term Living Term Vag-S pont Living Term Vag-S pont Living Last Filed Vital Signs Vital Sign Reading Time Taken Comments Blood Pressure 124/78 05/07/2024 10:15 AM EST Pulse 74 05/07/2024 10:15 AM EST Temperature 36.4 ??C (97.6 ??F) 05/07/2024 10:[address] Respiratory Rate 16 05/07/2024 10:15 AM EST Oxygen Saturation 99% 05/07/2024 10:15 AM EST Inhaled Oxygen Concentration - - Weight 68 kg (150 lb) 05/07/2024 10:15 AM EST Height 160 cm (5' 3 ) 05/07/2024 10:15 AM EST Body Mass Index 26.57 05/07/2024 10:15 AM EST Plan of Treatment Upcoming Encounters Date Type Department Care Team (Late st Contact Info) Description 05/20/2024 10:10 AM EST Appointment Radiology Department - [address] [phone] 05/20/2024 10:30 AM EST Appointment Radiology Department - [address] [phone] 06/03/2024 2:10 PM EDT Appointment Radiology Department - [address] [phone] 07/09/2024 2:00 PM EDT Office Visit Urogynecology [place] [phone] [place], [place] [phone] Kym Christine MD [address] [place] [address] 07/18/2024 3:00 PM EDT Office Visit Adult Medicine [facility] [address] [place] [address] Daphne Almanza MD [address] [place] [address] Health Maintenance Due Date Last Done Comments Cervical Cancer Screening: Pap Smear 1981 Zoster Vaccines (1 of 2) 2010 Pneumococcal Vaccine: 50+ Years (2 of 2 - PCV) 05/09/2019 05/09/2018 RSV Immunization Patients 60+ Years Old (1 - Risk 60-74 years 1-dose series) 2020 HIV Screening 03/05/2022 Pneumococcal Vaccine: Pediatrics (0 to 5 Years) and At-Risk Patients (6 to 64 Years) (3 of 3 - PCV20 or PCV21) 05/09/2023 05/09/2018, 12/19/2006 COVID-19 Vaccine (3 - season) 2023 02/11/2021, 06/19/2020 Depression Screening 04/15/2025 04/15/2024, 04/05/19 Social Influencers of Health Screening 04/15/2025 04/15/2024 Breast Cancer Screening 05/25/2025 05/26/19, 05/20/2022, 05/18/2021, Additional history exists DTaP,Tdap,and Td Vaccines (3 - Td or [...] patient's age to complete this topic Meningococcal B Vacine Aged Out No lo nger eligible based on patient's age to complete [...] screening mammogram for malignant neoplasm of breast HM DEPRESSION SCREENING Routine 04/05/2023 HM COLONOSCOPY Routine 07/06/2021 HEPATITIS C SCREENING Routine [...] Signed Date: 04/26/2024 17:15 ET Workstation ID: [id number] Transcribed By: Self Edit Transcribed Date: 04/26/2024 [...] Signed Date: 04/26/2024 17:15 ET Workstation ID: [id number] Transcribed By: Self Edit Transcribed Date: 04/26/2024 17:11 ET Andrew [facility] PROCEDURES Final Result * (ABNORMAL) Urinalysis with reflex microscopic and culture (04/18/2024 8:09 AM EST) Only the most recent of3 resultswithin the time period is included. Specific [place] Urine 1.017 1.003 - 1.030 LAB URINALYSIS - AUTOMATED METHOD 04/18/2024 8:35 AM EST [facility] pH, Urine 6.5 5.0 - 8.0 pH LAB URINALYSIS - AUTOMATED METHOD 04/18/2024 8:35 AM [facility] Leukocytes, Urine Trace(A) Negative LAB URINALYSIS - AUTOMATED METHOD 04/18/2024 8:35 AM [facility] Nitrite, Urine Negative Negative LAB URINALYSIS - AUTOMATED METHOD 04/18/2024 8:35 AM [facility] Protein, Urine Negative <=Trace mg/dL LAB URINALYSIS - AUTOMATED METHOD 04/18/2024 8:35 AM [facility] Glucose, Urine Negative Negative mg/dL LAB URINALYSIS - AUTOMATED METHOD 04/18/2024 8:35 AM [facility] Ketones, Urine Negative Negative mg/dL LAB URINALYSIS - AUTOMATED METHOD 04/18/2024 8:35 AM [facility] Urobilinogen, Urine 0.2 0.2 - 1.0 mg/dL LAB URINALYSIS - AUTOMATED METHOD 04/18/2024 8:35 AM [facility] Bilirubin, Urine Negative Negative LAB URINALYSIS - AUTOMATED METHOD 04/18/2024 8:35 AM [facility] Blood, Urine Negative Negative LAB URINALYSIS - AUTOMATED METHOD 04/18/2024 8:35 AM [facility] RBC, Urine 4.3(H) 0 - 4 /HPF LAB URINALYSIS - AUTOMATED METHOD 04/18/2024 8:35 AM [facility] WBC, Urine 2.3 0 - 4 /HPF LAB URINALYSIS - AUTOMATED METHOD 04/18/2024 8:35 AM [facility] Squamous Epithelial, Urine 17 0 - 60 /LPF LAB URINALYSIS - AUTOMATED METHOD 04/18/2024 8:35 AM [facility] Bacteria, Urine Negative Negative /HPF LAB URINALYSIS - AUTOMATED METHOD 04/18/2024 8:35 AM [facility] Hyaline Casts, Urine 0.0 0 - 3 /LPF LAB URINALYSIS - AUTOMATED METHOD 04/18/2024 8:35 AM EST [facility] Urine Urine specimen obtained by clean catch procedure / Unknown Non-blood Collection / Unknown 04/18/2024 8:09 AM EST 04/18/2024 8:28 AM EST us Marleny [facility] LAB URINE ORDERABLES Final Re sult [facility] [address] [place] [address], [place] [phone] * Forrest urine culture tube (04/18/2024 8:09 AM EST) Only the most recent of3 resultswithin the time period is included. Extra Tube Hold for add-ons. 04/18/2024 10:01 AM EST [facility] Comment:Auto resulted. Urine Urine specimen obtained by clean catch procedure / Unknown Non-blood Collection / Unknown 04/18/2024 8:09 AM EST 04/18/2024 8:28 AM EST us Marleny [facility] LAB URINE ORDERABLES Final Re sult Performing Organization Address City/[facility]/ZIP Co de Phone Number [facility] [address] [place] [address], [place] [phone] * Culture urine (04/18/2024 8:09 AM EST) Only the most recent of2 resultswithin the time period is included. Culture, Urine No growth 04/19/2024 9:01 AM EST [facility] Urine Urine specimen obtained by clean catch procedure / Unknown Non-blood Collection / Unknown 04/18/2024 8:09 AM EST 04/18/2024 8:35 AM EST us Marleny [facility] MICROBIOLOGY - GENERAL OR DERABLES Final Result Performing Organization Address City/[facility]/ZIP Co de Phone Number [facility] [address] [place] [address], * Trichomonas vaginalis antigen (04/18/2024 8:00 AM EST) Trichomonas vaginalis Negative Negative 04/18/2024 10:12 AM EST [facility] Swab Vaginal structure / Unknown Non-blood Collection / Unknown 04/18/2024 8:00 AM EST 04/18/2024 8:27 AM EST us Marleny [facility] MICROBIOLOGY - GENERAL OR DERABLES Final Result Performing Organization Address [facility] Co de Phone Number [facility] [address] [place] [address], [place] [phone] * Chlamydia trachomatis and Neisseria gonorrhoeae molecular study (04/18/2024 8:00 AM EST) Neisseria gonorrhoeae PCR Negative Negative LAB MOLECULAR DIAGNOSTICS METHOD 04/18/2024 10:50 AM EST [facility] Chlamydia trachomatis PCR Negative Negative LAB MOLECULAR DIAGNOSTICS METHOD 04/18/2024 10:50 AM EST [facility] Swab Vaginal structure / Unknown Non-blood Collection / Unknown 04/18/2024 8:00 AM EST 04/18/2024 8:27 AM EST us Marleny [facility] LAB MICROBIOLOGY - GENERAL OR DERABLES Final Result Performing Organization Address [facility]/ZIP Co de Phone Number [facility] [address] [place] [address], [place] [phone] * Wet prep, genital (04/18/2024 8:00 AM EST) Clue Cells, Wet Prep Negative Negative 04/18/2024 10:13 AM EST [facility] Yeast, Wet Prep Negative Negative 04/18/2024 10:13 AM EST [facility] Trichomonas, Wet Prep Indeterminate Negative 04/18/2024 10:13 AM [facility] Comment:Refer to Trichomonas antigen. Swab Vaginal structure / Unknown Non-blood Collection / Unknown 04/18/2024 8:00 AM EST 04/18/2024 8:27 AM EST Marleny [facility] MICROBIOLOGY - GENERAL OR DERABLES Final Result [facility] [address] [place] [address], * (ABNORMAL) CBC auto differential (04/17/2024 9:48 PM EST) Only the most recent of3 resultswithin the time period is included. WBC 9.4 4.8 - 10.8 K/mcL LAB HEMETOLOGY METHOD 04/17/2024 10:28 PM [facility] RBC 4.30 3.80 - 4.80 M/mcL LAB HEMETOLOGY METHOD 04/17/2024 10:28 PM [facility] Hemoglobin 12.9 11.5 - 16.0 g/dL LAB HEMETOLOGY METHOD 04/17/2024 10:28 PM [facility] Hematocrit 39.4 35.0 - 47.0 % LAB HEMETOLOGY METHOD 04/17/2024 10:28 PM [facility] MCV 92.5 79.0 - 98.0 FL LAB HEMETOLOGY METHOD 04/17/2024 10:28 PM [facility] MCH 30.3 27.0 - 32.0 pcg LAB HEMETOLOGY METHOD 04/17/2024 10:28 PM [facility] MCHC 32.7 32.0 - 37.0 g/dL LAB HEMETOLOGY METHOD 04/17/2024 10:28 PM [facility] RDW 13.7 11.0 - 15.0 % LAB HEMETOLOGY METHOD 04/17/2024 10:28 PM [facility] Platelets 255 130 - 400 K/mcL LAB HEMETOLOGY METHOD 04/17/2024 10:28 PM [facility] MPV 10.9 7.0 - 11.0 FL LAB HEMETOLOGY METHOD 04/17/2024 10:28 PM [facility] NRBC 0.0 <1.0 % LAB HEMETOLOGY METHOD 04/17/2024 10:28 PM [facility] NRBC Absolute 0.00 <0.10 K/mcL LAB HEMETOLOGY METHOD 04/17/2024 10:28 PM [facility] Neutrophils Relative 73.0 % LAB HEMETOLOGY METHOD 04/17/2024 10:28 PM [facility] Lymphocytes Relative 17.2 % LAB HEMETOLOGY METHOD 04/17/2024 10:28 PM [facility] Monocytes Relative 7.1 % LAB HEMETOLOGY METHOD 04/17/2024 10:28 PM [facility] Eosinophils Relative 1.6 % LAB HEMETOLOGY METHOD 04/17/2024 10:28 PM [facility] Basophils Relative 0.7 % LAB HEMETOLOGY METHOD 04/17/2024 10:28 PM [facility] Immature Granulocytes Relative 0.4 % LAB HEMETOLOGY METHOD 04/17/2024 10:28 PM [facility] Neutrophils Absolute 6.83 1.50 - 7.00 K/mcL LAB HEMETOLOGY METHOD 04/17/2024 10:28 PM [facility] Lymphocytes Absolute 1.61 1.00 - 5.00 K/mcL LAB HEMETOLOGY METHOD 04/17/2024 10:28 PM [facility] Monocytes Absolute 0.66 0.20 - 1.00 K/mcL LAB HEMETOLOGY METHOD 04/17/2024 10:28 PM EST [facility] Eosinophils Absolute 0.15 0.00 - 0.50 K/mcL LAB HEMETOLOGY METHOD 04/17/2024 10:28 PM EST [facility] Basophils Absolute 0.07 0.00 - 0.20 K/[facility] LAB HEMETOLOGY METHOD 04/17/2024 10:28 PM EST [facility] Immature Granulocytes Absolute 0.04(H) 0.00 - 0.03 K/[facility] LAB HEMETOLOGY METHOD 04/17/2024 10:28 PM EST [facility] Blood Venous blood specimen / Unknown Venipuncture / Unknown 04/17/2024 9:48 PM EST 04/17/2024 10:17 PM EST [employer] LAB BLOOD ORDERABLES Final Resu lt Performing Organization Address City/[facility]/ZIP Co de Phone Number [facility] [address] [place] [address], [place] [phone] * Lipase (04/17/2024 9:48 PM EST) Only the most recent of2 resultswithin the time period is included. Lipase 54 13 - 75 unit/L LAB CHEMISTRY METHOD 04/17/2024 10:45 PM EST [facility] Blood Venous blood specimen / Unknown Venipuncture / Unknown 04/17/2024 9:48 PM EST 04/17/2024 10:17 PM EST [employer] LAB BLOOD ORDERABLES Final Resu lt Performing Organization Address City/[facility]/ZIP Co de Phone Number [facility] [address] [place] [address], [place] [phone] * (ABNORMAL) Comprehensive metabolic panel (04/17/2024 9:48 PM EST) Only the most recent of3 resultswithin the time period is included. Sodium 139 133 - 145 mmol/L LAB CHEMISTRY METHOD 04/17/2024 10:48 PM [facility] Potassium 4.8 3.5 - 5.5 mmol/L LAB CHEMISTRY METHOD 04/17/2024 10:48 PM [facility] Chloride 107 96 - 110 mmol/L LAB CHEMISTRY METHOD 04/17/2024 10:48 PM [facility] CO2 30 21 - 32 mmol/L LAB CHEMISTRY METHOD 04/17/2024 10:48 PM [facility] Anion Gap 2(L) 3 - 11 LAB CHEMISTRY METHOD 04/17/2024 10:48 PM [facility] Glucose 103(H) 70 - 100 mg/dL LAB CHEMISTRY METHOD 04/17/2024 10:48 PM [facility] BUN 17 5 - 25 mg/dL LAB CHEMISTRY METHOD 04/17/2024 10:48 PM [facility] Creatinine 0.97 0.50 - 1.10 mg/dL LAB CHEMISTRY METHOD 04/17/2024 10:48 PM [facility] eGFR 66 >=60 mL/min/1. 73m2 LAB CHEMISTRY METHOD 04/17/2024 10:48 PM [facility] Comment:Calculation based on the??Chronic Kidney Disease Epidemiology Collaboration (CKD-EPI) equation refit??without adjustment for race. BUN/Creatinine Ratio 17.5 LAB CHEMISTRY METHOD 04/17/2024 10:48 PM [facility] Calcium 9.6 8.5 - 10.5 mg/dL LAB CHEMISTRY METHOD 04/17/2024 10:48 PM [facility] AST (SGOT) 28 10 - 42 unit/L LAB CHEMISTRY METHOD 04/17/2024 10:48 PM [facility] ALT (SGPT) 40 10 - 60 unit/L LAB CHEMISTRY METHOD 04/17/2024 10:48 PM EST [facility] Alkaline Phosphatase 94 42 - 121 unit/L LAB CHEMISTRY METHOD 04/17/2024 10:48 PM EST [facility] Total Protein 7.9 6.0 - 8.0 g/dL LAB CHEMISTRY METHOD 04/17/2024 10:48 PM EST [facility] Albumin 4.0 3.2 - 5.0 g/dL LAB CHEMISTRY METHOD 04/17/2024 10:48 PM EST [facility] Total Bilirubin 0.3 0.0 - 1.4 mg/dL LAB CHEMISTRY METHOD 04/17/2024 10:48 PM EST [facility] Blood Venous blood specimen / Unknown Venipuncture / Unknown 04/17/2024 9:48 PM EST 04/17/2024 10:17 PM EST us Liban Santo DO LAB BLOOD ORDERABLES Final Resu lt [facility] [address] [place] [address], [place] [phone] * Bilirubin duplicate procedure to order (04/12/2024 2:15 PM EST) Total Bilirubin 0.4 0.0 - 1.4 mg/dL LAB CHEMISTRY METHOD 04/12/2024 10:21 PM EST [facility] Bilirubin, Direct 0.1 0.0 - 0.3 mg/dL LAB CHEMISTRY METHOD 04/12/2024 10:21 PM EST [facility] Bilirubin, Indirect 0.3 0.0 - 1.1 mg/dL LAB CHEMISTRY METHOD 04/12/2024 10:21 PM EST [facility] Blood Venous blood specimen / Unknown Venipuncture / Unknown 04/12/2024 2:15 PM EST 04/12/2024 2:15 PM EST us Mavis CORNELIUS LAB BLOOD ORDERABLES Final Re sult [facility] [address] [place] [address], [place] [phone] * (ABNORMAL) Lipid panel with reflex to direct LDL (04/12/2024 2:15 PM EST) Cholesterol 210(H) 0 - 200 mg/dL LAB CHEMISTRY METHOD 04/12/2024 10:21 PM EST [facility] Triglycerides 153(H) 0 - 150 mg/dL LAB CHEMISTRY METHOD 04/12/2024 10:21 PM EST [facility] HDL 46 >=40 mg/dL LAB CHEMISTRY METHOD 04/12/2024 10:21 PM EST [facility] LDL Calculated 133(H) 0 - 100 mg/dL LAB CHEMISTRY METHOD 04/12/2024 10:21 PM EST [facility] VLDL Cholesterol Abdiel 30.6 mg/dL LAB CHEMISTRY METHOD 04/12/2024 10:21 PM EST [facility] Non HDL Chol. (LDL+VLDL) 164(H) <145 mg/dL LAB CHEMISTRY METHOD 04/12/2024 10:21 PM EST [facility] Chol/HDL Ratio 4.6(H) 0.0 - 4.4 LAB CHEMISTRY METHOD 04/12/2024 10:21 PM [facility] Blood Venous blood specimen / Unknown Venipuncture / Unknown 04/12/2024 2:15 PM EST 04/12/2024 2:15 PM EST Andrew CORNELIUS LAB BLOOD ORDERABLES Final Resu lt [facility] [address] [place] [address], [place] [phone] * Iron (04/12/2024 2:15 PM EST) Iron 90 40 - 150 mcg/dL LAB CHEMISTRY METHOD 04/12/2024 10:21 PM EST [facility] Blood Venous blood specimen / Unknown Venipuncture / Unknown 04/12/2024 2:15 PM EST 04/12/2024 2:15 PM EST Andrew CORNELIUS LAB BLOOD ORDERABLES Final Resu lt Performing Organization Address City/[facility]/ZIP Co de Phone Number [facility] [address] [place] [address], [place] [phone] * Ferritin (04/12/2024 2:15 PM EST) Ferritin 93 8 - 252 ng/mL LAB CHEMISTRY METHOD 04/12/2024 10:21 PM EST [facility] Blood Venous blood specimen / Unknown Venipuncture / Unknown 04/12/2024 2:15 PM EST 04/12/2024 2:15 PM EST Andrew CORNELIUS LAB BLOOD ORDERABLES Final Resu lt Performing Organization Address [facility] de Phone Number [facility] [address] [place] [address], [place] [phone] * US Abdomen Limited (03/24/2024 12:32 AM [...] by: Darien Santo MD on 03/24/2024 01:07:36 us Ulisesjack Shubham Carmichael Lopez DO IMG US PROCEDURES Final R esult * Exercise stress test (03/11/2024 10:00 AM [...] upsloping not meeting strict criteria for ischemia. us Daphne Almanza MD CV STRESS PROCEDURES Final Resul t * SCREENING MAMMOGRAPHY BI 2-VIEW BREAST INC [...] (<15%) Daphne Almanza MD IMG XR PROCEDURES Final Result * Depression Screening (04/05/2023) Depression Screening Abstracted Historical Provider HEALTH MAINTENANCE Final Result * Colonoscopy (07/06/2021) Pathologist [facility] Colonoscopy No Interpretation , Abstracted Anatomical Region Laterality Modality Other Historical Provider HEALTH MAINTENANCE Final Result * Hepatitis C Screening (06/11/2018) Pathologist [facility] Hepatitis C Screening Abstracted Result [place] [facility] Historical Provider HEALTH MAINTENANCE Final Result from Last 3 Months or Most Recently Relevant to Health Maintenance [place] [address] [place] [address] [employer] PLAN Care Teams Machine Maintenance Technician Relationship Specialty Start Date End Date Daphne Almanza MD [address] [place] [address] PCP - General Internal Medicine 11/30/13
--- OUTSIDE RECORDS SUMMARY | 2024-05-16 15:25 | XMS_ITS | Encounter Summary ---
Author Organization [facility] Address [address] [place] [address] Care Team Providers Care Digital Archivist Name Role Phone Daphne Almanza MD Primary Care Provider [phone] Reason for Visit * Reason Comments Fecal Impaction Rectal pain 2 months seen by pcp seen at [facility] here 2 timesf Encounter Details Date Type Department Care Team (Late st Contact Info) Description 04/18/2024 7:25 AM EST - 04/18/2024 10:[address] [facility] Emergency [address] [place] [id number] Ralph Menard MD [address] [place] [address] Vaginal pain (Primary Dx); Rectal pain Discharge [...] is your living situation? 0 04/15/2024 Comments Unknown Sex and Gender Information Value Date Recorded Sex Assigned at Female 04/22/2024 11:24 AM EST Legal Sex Female 3:09 PM EST Gender Identity Female 04/22/2024 11:24 AM EST Sexual Orientation Straight 04/22/2024 11 :24 AM EST documented as of this encounter Last Filed [...] 04/18/2024 8:09 AM EST Please follow-up with [employer] as planned at the end of March. [...] this encounter Medications at Time of Discharge acetaminophen (TYLENOL 8 HOUR) 650 mg 8 hr tablet TOME CHARLES TABLETA DOS VECES AL AYAZ 06/16/2023 albuterol HFA (ProAir HFA) [...] times daily as needed for Heartburn. 02/23/2023 fexofenadine (LUANA) 180 mg tablet Take 1 tablet by mouth daily. 02/23/2021 fluticasone propionate (FLONASE) 50 mcg/actuation nasal spray INSTILL 1 SPRAY INTO EACH NOSTRIL TWICE A DAY. 48 mL 5 02/28/2024 gabapentin (NEURONTIN) 100 mg capsule PLEASE SEE ATTACHED FOR DETAILED DIRECTIONS 12/07/2021 hydrocortisone (Preparation H Hydrocortisone) 1 % topical cream Apply topically 2 (two) times a day. 30 g 04/12/2024 6 LORazepam (ATIVAN) 0.5 mg tablet JENNYFER LOONEYAS 12/28/2022 pantoprazole (PROTONIX) 40 mg EC tablet Take 1 tablet (40 mg total) by mouth 1 (one) time each day. Take in am on empty stomach wait 30 mins and then eat to activate the medication 30 each 04/12/2024 risperiDONE (RisperDAL) 2 mg tablet JENNYFER LOONEYAS 07/22/2015 venlafaxine XR (EFFEXOR-XR) 150 mg 24 hr capsule 150 mg. 1 Tab daily 07/22/2015 ciprofloxacin (CIPRO) 500 mg tablet Take 1 tablet (500 mg total) by mouth 2 (two) times a day for 14 days. 28 each 04/12/2024 5 dicyclomine (BENTYL) 20 mg tablet Take 1 tablet (20 mg total) by mouth 2 (two) times a day for 10 days. 20 tablet 04/18/2024 5 metroNIDAZOLE (FLAGYL) 500 mg tablet Take 1 tablet (500 mg total) by mouth 2 (two) times a day for 14 days. Do not use mouth wash or consume alcohol until 48 hours after last dose 28 each 04/12/2024 5 traMADoL (ULTRAM) 50 mg tablet Take 1 tablet (50 mg total) by mouth every 6 (six) hours if needed for severe pain for up to 3 days. Max Daily Amount: 200 mg 12 tablet 04/18/2024 5 famotidine (Pepcid) 20 mg tablet Take 1 tablet (20 mg total) by mouth 2 (two) times a day if needed for heartburn. 60 each 11 04/12/2024 5 phenyleph-pramox in-glycr-w.pet (Preparation H Maximum Strength) 0.25-1 % cream Insert 0.0385 each into the rectum 2 (two) times a day if needed (rectal irritation). 60 g 6 04/12/2024 5 documented as of this encounter Ordered Prescriptions Prescription Sig Dispense Quantity Refills Last Filled Start Date End Date traMADoL (ULTRAM) 50 mg tablet Take 1 [...] 04/17/2024 8:55 PM EST Pt seen in [facility] x 2 and [facility] and pcp also [facility] for rectal pain no bleeding. Ptdx [...] 2 months seen by pcp seen at [facility] here 2 timesf HPI: From EMR: Patient presents to the office today for evaluation of pelvic pain/pressure x weeks. She is primarily Croatian-speaking. teachers' assistant staff Arleth Bardales is helping provide translation for today[employer] Declines video per diem interpreter. She was seen at [facility] ER on 03/23/2024 and had follow-up [...] appointment on 04/25/2024. She then presented to [facility] on 04/05/2024 endorsing 1 month of suprapubic/bladder pain. Reported being seen at urgent care center 3 times for the same concern as well. Was prescribed numerous courses of antibiotics for suspected UTI. It is documented that patient was also seen at [facility] on 03/10/2024 for the same concern. Gonorrhea [...] referral from PCP. She then presented to [facility] on 04/11/2024 for continued symptoms. CBC [...] have lower abdominal discomfort/pressure. She presents to [facility] ED today with continued symptoms. She is currently taking Cipro and Flagyl. This was prescribed by Andrew Nino from GI. She reports having an appointment with oncology on 04/26.She complains of abdominal discomfort, vaginal burning and [...] REL COLONOSCOPY 04/20/2012 PROCEDURE: HISTORICAL COLONOSCOPY; COMMENT: [facility] - normal ESOPHAGOGASTRODUODENOSCOPY 08/20/2015 PROCEDURE: MD ESOPHAGOGASTRODUODENOSCOPY TRANSORAL DIAGNOSTIC; COMMENT: Dr. De La Rosa - small H/H o/w normal. ESOPHAGOGASTRODUODENOSCOPY PROCEDURE: MD EGD [...] to activate the medication 30 each 11 qbpvdbkhn-vrgcfels-qppyo-w.pet (Preparation H Maximum Strength) 0.25-1 % cream [...] REFLEX MICROSCOPIC AND CULTURE - Abnormal Specific [place] Urine 1.017 pH, Urine 6.5 Leukocytes, Urine [...] Procedure Abnormality Status --------- ------ CBC auto differential[[id number]] Abnormal Final result Please view results for these tests on the individual orders. URINALYSIS WITH REFLEX MICROSCOPIC AND CULTURE Narrative: The following orders were created for panel order Urinalysis with reflex microscopic and culture. Procedure Abnormality Status --------- ------ Urinalysis with reflex ...[[id number]] Abnormal Final result Forrest urine culture tube[[id number]] Final result Please view results for these [...] tramadol and Bentyl. Discharged in stable condition. [employer] follow-up as planned. [[facility]] ED Course User [...] workup and she has follow-up with a dimensional engineer, based on the symptoms of abdominal pain [...] [address] La [address]ega 04/18/24 1008 Cosigned by Ralph Menard MD at 04/18/2024 3:09 PM EST documented in this encounter Plan of Treatment Upcoming Encounters Date Type Department Care Team (Late st Contact Info) Description 05/20/2024 10:10 AM EST Appointment Radiology Department - [address] [phone] 05/20/2024 10:30 AM EST Appointment Radiology Department [address] [phone] 06/03/2024 2:10 PM EDT Appointment Radiology Department [address] [phone] 07/09/2024 2:00 PM EDT Office Visit Urogynecology - [address] [phone] Kym Christine MD [address] [place] [address] 07/18/2024 3:00 PM EDT Office Visit Adult Medicine [facility] [address], [place] [phone] Daphne Almanza MD [address] [place], [place] documented as of this encounter Procedures Procedure [...] * Culture urine (04/18/2024 8:09 AM EST) [facility] Culture, Urine No growth 04/19/2024 9:01 AM [facility] Urine Urine specimen obtained by clean catch procedure / Unknown Non-blood Collection / Unknown 04/18/2024 8:09 AM EST 04/18/2024 8:35 AM EST us Marleny CORNELIUS LAB MICROBIOLOGY - GENERAL OR DERABLES Final Result Performing Organization Address [facility]/ZIP Co de Phone Number [facility] [address] [place] [address], [place] [phone] * Forrest urine culture tube (04/18/2024 8:09 AM EST) [facility] Extra Tube Hold for add-ons. 04/18/2024 10:01 AM [facility] Comment:Auto resulted. Urine Urine specimen obtained by clean catch procedure / Unknown Non-blood Collection / Unknown 04/18/2024 8:09 AM EST 04/18/2024 8:28 AM EST us Marleny CORNELIUS LAB URINE ORDERABLES Final Re sult Performing Organization Address [facility]/ZIP Co de Phone Number [facility] [address] [place] [address], [place] [phone] * (ABNORMAL) Urinalysis with reflex microscopic and culture (04/18/2024 8:09 AM EST) [facility] Specific [place] Urine 1.017 1.003 - 1.030 LAB URINALYSIS - AUTOMATED METHOD 04/18/2024 8:35 AM [facility] pH, Urine 6.5 5.0 - 8.0 pH LAB URINALYSIS - AUTOMATED METHOD 04/18/2024 8:35 AM [facility] Leukocytes, Urine Trace(A) Negative LAB URINALYSIS - AUTOMATED METHOD 04/18/2024 8:35 AM [facility] Nitrite, Urine Negative Negative LAB URINALYSIS - AUTOMATED METHOD 04/18/2024 8:35 AM [facility] Protein, Urine Negative <=Trace mg/dL LAB URINALYSIS - AUTOMATED METHOD 04/18/2024 8:35 AM [facility] Glucose, Urine Negative Negative mg/dL LAB URINALYSIS - AUTOMATED METHOD 04/18/2024 8:35 AM [facility] Ketones, Urine Negative Negative mg/dL LAB URINALYSIS - AUTOMATED METHOD 04/18/2024 8:35 AM [facility] Urobilinogen, Urine 0.2 0.2 - 1.0 mg/dL LAB URINALYSIS - AUTOMATED METHOD 04/18/2024 8:35 AM [facility] Bilirubin, Urine Negative Negative LAB URINALYSIS - AUTOMATED METHOD 04/18/2024 8:35 AM [facility] Blood, Urine Negative Negative LAB URINALYSIS - AUTOMATED METHOD 04/18/2024 8:35 AM [facility] RBC, Urine 4.3(H) 0 - 4 /HPF LAB URINALYSIS - AUTOMATED METHOD 04/18/2024 8:35 AM [facility] WBC, Urine 2.3 0 - 4 /HPF LAB URINALYSIS - AUTOMATED METHOD 04/18/2024 8:35 AM [facility] Squamous Epithelial, Urine 17 0 - 60 /LPF LAB URINALYSIS - AUTOMATED METHOD 04/18/2024 8:35 AM [facility] Bacteria, Urine Negative Negative /HPF LAB URINALYSIS - AUTOMATED METHOD 04/18/2024 8:35 AM [facility] Hyaline Casts, Urine 0.0 0 - 3 /LPF LAB URINALYSIS - AUTOMATED METHOD 04/18/2024 8:35 AM [facility] Urine Urine specimen obtained by clean catch procedure / Unknown Non-blood Collection / Unknown 04/18/2024 8:09 AM EST 04/18/2024 8:28 AM EST us Marleny CORNELIUS LAB URINE ORDERABLES Final Re sult Performing Organization Address [facility]/ZIP Co de Phone Number [facility] [address] [place] [address], [place] [phone] * Trichomonas vaginalis antigen (04/18/2024 8:00 AM EST) Trichomonas vaginalis Negative Negative 04/18/2024 10:12 AM EST [facility] Swab Vaginal structure / Unknown Non-blood Collection / Unknown 04/18/2024 8:00 AM EST 04/18/2024 8:27 AM EST us Marleny CORNELIUS LAB MICROBIOLOGY - GENERAL OR DERABLES Final Result Performing Organization Address [facility] Co de Phone Number [facility] [address] [place] [address], [place] [phone] * Chlamydia trachomatis and Neisseria gonorrhoeae molecular study (04/18/2024 8:00 AM EST) Pathologist [facility] Neisseria gonorrhoeae PCR Negative Negative LAB MOLECULAR DIAGNOSTICS METHOD 04/18/2024 10:50 AM EST [facility] Chlamydia trachomatis PCR Negative Negative LAB MOLECULAR DIAGNOSTICS METHOD 04/18/2024 10:50 AM EST [facility] Swab Vaginal structure / Unknown Non-blood Collection / Unknown 04/18/2024 8:00 AM EST 04/18/2024 8:27 AM EST us Marleny CORNELIUS LAB MICROBIOLOGY - GENERAL OR DERABLES Final Result Performing Organization Address [facility]/ZIP Co de Phone Number [facility] [address] [place] [address], [place] [phone] * Wet prep, genital (04/18/2024 8:00 AM EST) Pathologist [facility] Clue Cells, Wet Prep Negative Negative 04/18/2024 10:13 AM EST [facility] Yeast, Wet Prep Negative Negative 04/18/2024 10:13 AM [facility] Trichomonas, Wet Prep Indeterminate Negative 04/18/2024 10:13 AM EST [facility] Comment:Refer to Trichomonas antigen. Swab Vaginal structure / Unknown Non-blood Collection / Unknown 04/18/2024 8:00 AM EST 04/18/2024 8:27 AM EST Marleny CORNELIUS LAB MICROBIOLOGY - GENERAL OR DERABLES Final Result [facility] [address] [place] [address], * (ABNORMAL) CBC auto differential (04/17/2024 9:48 PM EST) [facility] WBC 9.4 4.8 - 10.8 K/mcL LAB HEMETOLOGY METHOD 04/17/2024 10:28 PM [facility] RBC 4.30 3.80 - 4.80 M/mcL LAB HEMETOLOGY METHOD 04/17/2024 10:28 PM [facility] Hemoglobin 12.9 11.5 - 16.0 g/dL LAB HEMETOLOGY METHOD 04/17/2024 10:28 PM [facility] Hematocrit 39.4 35.0 - 47.0 % LAB HEMETOLOGY METHOD 04/17/2024 10:28 PM [facility] MCV 92.5 79.0 - 98.0 FL LAB HEMETOLOGY METHOD 04/17/2024 10:28 PM [facility] MCH 30.3 27.0 - 32.0 pcg LAB HEMETOLOGY METHOD 04/17/2024 10:28 PM [facility] MCHC 32.7 32.0 - 37.0 g/dL LAB HEMETOLOGY METHOD 04/17/2024 10:28 PM [facility] RDW 13.7 11.0 - 15.0 % LAB HEMETOLOGY METHOD 04/17/2024 10:28 PM [facility] Platelets 255 130 - 400 K/mcL LAB HEMETOLOGY METHOD 04/17/2024 10:28 PM [facility] MPV 10.9 7.0 - 11.0 FL LAB HEMETOLOGY METHOD 04/17/2024 10:28 PM [facility] NRBC 0.0 <1.0 % LAB HEMETOLOGY METHOD 04/17/2024 10:28 PM [facility] NRBC Absolute 0.00 <0.10 K/mcL LAB HEMETOLOGY METHOD 04/17/2024 10:28 PM [facility] Neutrophils Relative 73.0 % LAB HEMETOLOGY METHOD 04/17/2024 10:28 PM [facility] Lymphocytes Relative 17.2 % LAB HEMETOLOGY METHOD 04/17/2024 10:28 PM [facility] Monocytes Relative 7.1 % LAB HEMETOLOGY METHOD 04/17/2024 10:28 PM [facility] Eosinophils Relative 1.6 % LAB HEMETOLOGY METHOD 04/17/2024 10:28 PM [facility] Basophils Relative 0.7 % LAB HEMETOLOGY METHOD 04/17/2024 10:28 PM [facility] Immature Granulocytes Relative 0.4 % LAB HEMETOLOGY METHOD 04/17/2024 10:28 PM [facility] Neutrophils Absolute 6.83 1.50 - 7.00 K/mcL LAB HEMETOLOGY METHOD 04/17/2024 10:28 PM [facility] Lymphocytes Absolute 1.61 1.00 - 5.00 K/mcL LAB HEMETOLOGY METHOD 04/17/2024 10:28 PM EST [facility] Monocytes Absolute 0.66 0.20 - 1.00 K/[facility] LAB HEMETOLOGY METHOD 04/17/2024 10:28 PM EST [facility] Eosinophils Absolute 0.15 0.00 - 0.50 K/[facility] LAB HEMETOLOGY METHOD 04/17/2024 10:28 PM EST [facility] Basophils Absolute 0.07 0.00 - 0.20 K/[facility] LAB HEMETOLOGY METHOD 04/17/2024 10:28 PM EST [facility] Immature Granulocytes Absolute 0.04(H) 0.00 - 0.03 K/[facility] LAB HEMETOLOGY METHOD 04/17/2024 10:28 PM EST [facility] Blood Venous blood specimen / Unknown Venipuncture / Unknown 04/17/2024 9:48 PM EST 04/17/2024 10:17 PM EST [facility] LAB BLOOD ORDERABLES Final Resu lt Performing Organization Address City/[facility]/ZIP Co de Phone Number [facility] [address] [place] [address], [place] [phone] * Lipase (04/17/2024 9:48 PM EST) Lipase 54 13 - 75 unit/L LAB CHEMISTRY METHOD 04/17/2024 10:45 PM EST [facility] Blood Venous blood specimen / Unknown Venipuncture / Unknown 04/17/2024 9:48 PM EST 04/17/2024 10:17 PM EST [facility] [employer] [facility] LAB BLOOD ORDERABLES Final Resu lt Performing Organization Address City/[facility]/ZIP Co de Phone Number [facility] [address] [place] [address], [place] [phone] * (ABNORMAL) Comprehensive metabolic panel (04/17/2024 9:48 PM EST) Sodium 139 133 - 145 mmol/L LAB CHEMISTRY METHOD 04/17/2024 10:48 PM [facility] Potassium 4.8 3.5 - 5.5 mmol/L LAB CHEMISTRY METHOD 04/17/2024 10:48 PM [facility] Chloride 107 96 - 110 mmol/L LAB CHEMISTRY METHOD 04/17/2024 10:48 PM [facility] CO2 30 21 - 32 mmol/L LAB CHEMISTRY METHOD 04/17/2024 10:48 PM [facility] Anion Gap 2(L) 3 - 11 LAB CHEMISTRY METHOD 04/17/2024 10:48 PM [facility] Glucose 103(H) 70 - 100 mg/dL LAB CHEMISTRY METHOD 04/17/2024 10:48 PM [facility] BUN 17 5 - 25 mg/dL LAB CHEMISTRY METHOD 04/17/2024 10:48 PM [facility] Creatinine 0.97 0.50 - 1.10 mg/dL LAB CHEMISTRY METHOD 04/17/2024 10:48 PM [facility] eGFR 66 >=60 mL/min/1. 73m2 LAB CHEMISTRY METHOD 04/17/2024 10:48 PM [facility] Comment:Calculation based on the??Chronic Kidney Disease Epidemiology Collaboration (CKD-EPI) equation refit??without adjustment for race. BUN/Creatinine Ratio 17.5 LAB CHEMISTRY METHOD 04/17/2024 10:48 PM [facility] Calcium 9.6 8.5 - 10.5 mg/dL LAB CHEMISTRY METHOD 04/17/2024 10:48 PM [facility] AST (SGOT) 28 10 - 42 unit/L LAB CHEMISTRY METHOD 04/17/2024 10:48 PM [facility] ALT (SGPT) 40 10 - 60 unit/L LAB CHEMISTRY METHOD 04/17/2024 10:48 PM EST [facility] Alkaline Phosphatase 94 42 - 121 unit/L LAB CHEMISTRY METHOD 04/17/2024 10:48 PM EST [facility] Total Protein 7.9 6.0 - 8.0 g/dL LAB CHEMISTRY METHOD 04/17/2024 10:48 PM EST [facility] Albumin 4.0 3.2 - 5.0 g/dL LAB CHEMISTRY METHOD 04/17/2024 10:48 PM [facility] Total Bilirubin 0.3 0.0 - 1.4 mg/dL LAB CHEMISTRY METHOD 04/17/2024 10:48 PM EST [facility] Blood Venous blood specimen / Unknown Venipuncture / Unknown 04/17/2024 9:48 PM EST 04/17/2024 10:17 PM EST us Liban Santo DO LAB BLOOD ORDERABLES Final Resu lt [facility] [address] [place] [address], documented in this encounter Visit Diagnoses Diagnosis Vaginal pain- Primary Unspecified symptom associated with female genital organs Rectal pain Anal or rectal pain Encounter for screening mammogram for breast cancer documented in this encounter Additional Health Concerns Assessment Noted Time PHQ-9 Depression Total Score: 1 04/15/19 25 2:51 PM EST documented as of this encounter Care Teams Digital Archivist Relationship Specialty Start Date End Date Daphne Almanza MD [address] [place] [address] PCP - General Internal Medicine 11/30/13 documented as of this encounter
--- OUTSIDE RECORDS SUMMARY | 2024-05-16 15:25 | XMS_ITS | Encounter Summary ---
Author Organization [facility] Address [address] [place] [address] Care Team Providers Care Grease Worker Name Role Phone Daphne Almanza MD Primary Care Provider [phone] Reason for Visit * Reason Comments Pain Vaginal pain and dis comfort * Consultation (Routine) - Closed Specialty Diagnoses / Procedures Referred By Contact Referred To Contact Obstetrics and Gynecology Diagnoses Vaginal pain Mavis Osborn PA [address] [place], [place] Phone: tel: fax: Obstetrics and Gynecology - [address] Phone: tel: fax: Referral ID Status Reason Start Date Expiration Date V isits Requested Visits Authorized [id number] Closed Specialty Services Required 04/02/2024 04/02/2025 1 1 Encounter Details Date Type Department Care Team (Late st Contact Info) Description 04/25/2024 10:45 AM EST Office Visit Obstetrics and Gynecology - [address] [phone] Maria Victoria Ellington MD [address] [place], [place] Pelvic pressure in female (Primary Dx); Vaginal pain Social History Tobacco Use Types Packs/Day [...] your loved ones. For example, child care assistant or elderly care for an older [...] virus infection 11/30/2021 DX:COVID-19 virus infection; COMMENT: 828.22 Depressive disorder DX:Depressive disorder Diverticulosis DX:Diverticulosis GERD [...] REL COLONOSCOPY 04/20/2012 PROCEDURE: HISTORICAL COLONOSCOPY; COMMENT: [facility] - normal ESOPHAGOGASTRODUODENOSCOPY 08/20/2015 PROCEDURE: [place] ESOPHAGOGASTRODUODENOSCOPY TRANSORAL DIAGNOSTIC; COMMENT: Dr. De La Rosa - small H/H o/w normal. ESOPHAGOGASTRODUODENOSCOPY PROCEDURE: [place] EGD TRANSORAL BIOPSY SINGLE/MULTIPLE; COMMENT: 08/2019 with [...] busPIRone (BUSPAR) 30 mg tablet TOME CHARLES JACKA CHANTEL VECKOLE AL D A ciprofloxacin (CIPRO) 500 mg [...] taking: Reported on 04/25/2024) 60 each 11 vsadnafvs-fctnikbs-xakqy-w.pet (Preparation H Maximum Strength) 0.25-1 % cream [...] lymphadenopathy. PELVIC: External Genitalia: Exam chaperoned by veterinary medical officer. Normal architecture, without lesions Urethral meatus: normal [...] 10:10 AM EST Appointment Radiology Department - [address] [phone] 05/20/2024 10:30 AM EST Appointment Radiology Department - [address] [phone] 06/03/2024 2:10 PM EDT Appointment Radiology Department - [address] [phone] 07/09/2024 2:00 PM EDT Office Visit Urogynecology - [address] [phone] Kym Christine MD [address] [facility] [address] [place] [address] 07/18/2024 3:00 PM EDT Office Visit Adult Medicine [facility] [address] [place] [address] Daphne Almanza MD [address] [place] [address] documented as of this encounter Visit Diagnoses Diagnosis Pelvic pressure in female- Primary Vaginal pain Unspecified symptom associated with female genital organs Encounter for screening mammogram for breast cancer documented in this encounter Orders Outpatient Referral Count Last Ordered Date Fir st Ordered Date AMB REFERRAL TO OB-[facility] 1 05/03/2024 documented in this encounter Additional Health Concerns Assessment Noted Time PHQ-9 Depression Total Score: 1 04/15/19 25 2:51 PM EST documented as of this encounter Care Teams Grease Worker Relationship Specialty Start Date End Date Daphne Almanza MD [address] [place] [address] PCP - General Internal Medicine 11/30/13 documented as of this encounter
--- OUTSIDE RECORDS SUMMARY | 2024-05-16 15:25 | XMS_ITS | Encounter Summary ---
Author Organization [facility] Address [address] [place] [address] Care Team Providers Care Balloon Sander Name Role Phone Daphne Almanza MD Primary Care Provider [phone] Reason for Referral * Consultation (Routine) - Authorized Specialty Diagnoses / Procedures Referred By Radha olsen Referred To Contact Breast Surgery Diagnoses Pain of both breasts Mavis Osborn PA [address] [place] [address] Phone: tel: fax: [address] [place] [address] Phone: tel: fax: Referral ID Status Reason Start Date Expiration Date Visits Requested Visits Authorized [id number] Authorized Specialty Services Required 05/07/2024 05/07/2025 1 1 * Imaging (Routine) - Authorized Specialty Diagnoses / Procedures Referred By Radha olsen Referred To Contact Radiology Diagnoses Pain of both breasts Procedures MG Mammo Digital Diagnostic bilat Mavis Osborn PA [address] [place] [address] Phone: tel: fax: [facility] [address] [place], [place] [address] [place], [place] Phone: tel: Referral ID Status Reason Start Date Expiration Date V isits Requested Visits Authorized [id number] Authorized 05/07/2024 05/07/2025 1 1 Reason for Visit * Reason Comments Breast Pain X 3 weeks Encounter Details Date Type Department Care Team (Late st Contact Info) Description 05/07/2024 10:15 AM EST Office Visit Adult Medicine [facility] [address] [place] [address] Mavis Osborn PA [address] [place] [address] Pain of both breasts (Primary Dx) Social History Tobacco Use Types [...] for your loved ones. For example, children's entertainer or elderly care for an older adult? [...] Mass Index 26.57 05/07/2024 10:15 AM EST documented in this encounter Progress Notes * ADRYAN Langley - 05/07/2024 10:15 AM EST CHIEF COMPLAINT: Breast Pain (X 3 weeks ) IDENTIFIER: Nila Banks is a 63 y.o. old female. I have obtained verbal consent from Nila Banks prior to the recording. I have advised Nila Banks that she may refuse the recording and require the recording to be turned offat any time during this encounter. History of Present Illness She reports developing intermittent bilateral breast pain approximately 3 weeks ago. Denies overlying skin change, rash, nipple discharge, palpable masses, or history of trauma. She was evaluated by HOOP MAKER HELPER MACHINE on 04/25/24, but states she forgot to report breast symptoms. Denies breast pain at time ofexam, states she did have some discomfort yesterday. When asked about treatment of discomfort, she reports taking oxycodone from external prescriber (?). She also mentions poorly controlled GERD symptoms and is advised to contact gastroenterology (who she was just evaluated by yesterday). Results --//-- ROS: GENERAL: No fever, shaking chills RESPIRATORY: No shortness of breath CARDIOVASCULAR: No chest pain SKIN: as above PAST MEDICAL HISTORY: Patient Active Problem List Diagnosis Date Noted Pelvic pressure in female 04/25/2024 Diverticulosis 03/08/2024 Rectal pain 03/08/2024 Seasonal allergies 03/08/2024 Gastroesophageal reflux disease 04/06/2022 Anxiety 04/06/2022 COVID-19 virus infection 11/30/2021 Chronic insomnia 07/13/2021 [...] REL COLONOSCOPY 04/20/2012 PROCEDURE: HISTORICAL COLONOSCOPY; COMMENT: [facility] - normal ESOPHAGOGASTRODUODENOSCOPY 08/20/2015 PROCEDURE: [place] ESOPHAGOGASTRODUODENOSCOPY TRANSORAL DIAGNOSTIC; COMMENT: Dr. Rj pepper H/H o/w normal. ESOPHAGOGASTRODUODENOSCOPY PROCEDURE: [place] EGD TRANSORAL BIOPSY SINGLE/MULTIPLE; COMMENT: 08/2019 with [...] No partnership data on file MEDICATIONS DISCONTINUED/REORDERED: There are no discontinued medications. ACTIVE MEDICATIONS: Outpatient Medications Marked as Taking for the 05/07/24 encounter (Office Visit) with ADRYAN Langley Medication Sig Dispense Refill acetaminophen (TYLENOL 8 HOUR) 650 mg 8 hr tablet TOME CHARLES TABLETA DOS VECES AL AYAZ albuterol HFA (ProAir HFA) 90 mcg/actuation inhaler Take 2 Puffs by mouth every 4 hours as needed for Cough or Wheezing. 2 Puffs every 4 hours as needed aluminum-magnesium hydroxide-simethicone (MAALOX) 200-200-20 mg/5 mL suspension Take 30 mL by mouth4 (four) times a day (before meals and nightly). 769 mL 11 amoxicillin-clavulanate (AUGMENTIN) 875-125 mg per tablet Take 1 tablet by mouth 2 (two) times a day for 14 days. 28 each 0 azelastine (ASTELIN) 137 mcg (0.1 %) nasal [...] LORazepam (ATIVAN) 0.5 mg tablet JENNYFER LOONEY oxyCODONE (OXY-IR) 5 mg immediate release capsule TAKE 1 CAPSULE BY MOUTH EVERY 8 HOURS NEEDED FOR PAIN FOR 3 DAYS pantoprazole (PROTONIX) 40 mg EC tablet Take 1 tablet (40 mg total) by mouth 1 (one) time each day.Take in am on empty stomach wait 30 mins and then eat to activate the medication 30 each 11 yotrnioic-exuamklc-rkerf-w.pet (Preparation H Maximum Strength) 0.25-1 % cream Insert 0.0385 each into the rectum 2 (two) times a day if needed (rectal irritation). 30 g 11 venlafaxine XR (EFFEXOR-XR) 150 mg 24 hr capsule 150 mg. 1 Tab daily ALLERGIES: Allergies Allergen Reactions Aspirin GI upset with this and Motrin Pineapple Throat discomfort with fresh pineapple- oral allergy syndrome PHYSICAL EXAM: Visit Vitals BP 124/78 Pulse 74 Temp 36.4 ??C (97.6 ??F) (Temporal) Resp 16 Ht 1.6 m (63 ) Wt 68 kg (150 lb) SpO2 99% BMI 26.57 kg/m?? OB Status Hysterectomy Smoking Status Former BSA 1.71 m?? Wt Readings from Last 5 Encounters: 05/07/24 68 kg (150 lb) 05/06/24 68.1 kg (150 lb 3.2 oz) 04/25/24 67.6 kg (149 lb) 04/17/24 70.3 kg (155 lb) 04/15/24 70.4 kg (155 lb 3.2 oz) BMI plan is deferred until next visit Physical Exam APPEARANCE: Alert and in no acute distress HEART: RRR with normal S1 and S2, no murmurs, no gallops LUNG: Bilateral lung damian clear to auscultation throughout BREAST: (Exam performed with staff Rhiannon MONTEIRO, acting as supervisor hand workers): No asymmetry. Nipples evertedwithout drainage. No palpable mass or overlying skin change noted bilaterally. No palpable axillarymass noted bilaterally. Orders Placed This Encounter Procedures MG Mammo Digital Diagnostic bilat Ambulatory referral to Breast Surgery IMPRESSION: 1. Pain of both breasts Assessment & Plan Bilateral breast pain -Reportedly intermittently ongoing for 3 weeks, but not present today -Breast exam is reassuring - Ordered diagnostic mammogram and provided referral to breast specialist for further evaluation and management Medication and lab orders: Orders Placed This Encounter Procedures MG Mammo Digital Diagnostic bilat Ambulatory referral to Breast Surgery Other orders: MG MAMMO DIGITAL DIAGNOSTIC BILAT AMB REFERRAL TO BREAST SURGERY ADRYAN Langley on 05/07/2024 at 10:37 AM EST This note was dictated using voice recognition software. Please pardon any grammatical or syntax errors. documented in this encounter Plan of Treatment Upcoming Encounters Date Type Department Care Team (Late st Contact Info) Description 05/20/2024 10:10 AM EST Appointment Radiology Department - [address] [phone] 05/20/2024 10:30 AM EST Appointment Radiology Department - [address] [phone] 06/03/2024 2:10 PM EDT Appointment Radiology Department - [address] [phone] 07/09/2024 2:00 PM EDT Office Visit Urogynecology - [address] [phone] Christine, Kym P, MD [address] [place] [address] 07/18/2024 3:00 PM EDT Office Visit Adult Medicine [facility] [address] [place] [phone] Daphne Almanza MD [address] [place] [address] Scheduled Orders Name Type Priority Associated Diagnoses Orde r Schedule MG Mammo Digital Diagnostic bilat Imaging Routine Pain of both breasts Expected: 05/07/2024, Expires: 05/07/2025 Scheduled Referrals Name Type Priority Associated Diagnoses Order Schedule Ambulatory referral to Breast Surgery Outpatient Referral Routine Pain of both breasts 1 Occurrences starting 05/07/2024 until 05/07/2025 documented as of this encounter Visit Diagnoses Diagnosis Pain of both breasts- Primary Encounter for screening mammogram for breast cancer documented in this encounter Additional Health Concerns Assessment Noted Time PHQ-9 Depression Total Score: 1 04/15/19 25 2:51 PM EST documented as of this encounter Care Teams Balloon Sander Relationship Specialty Start Date End Date Daphne Almanza MD [address] [place] [address] PCP - General Internal Medicine 11/30/13 documented as of this encounter
--- OUTSIDE RECORDS SUMMARY | 2024-05-16 15:25 | XMS_ITS | Encounter Summary ---
Author Organization [facility] Address [address] [place] [address] Care Team Providers Care Adaptive Physical Education Specialist Name Role Phone Daphne Almanza MD Primary Care Provider [phone] Reason for Visit * Reason Onset Date Comments Medication Problem 05/09/2024 Encounter Details Date Type Department Care Team (Late st Contact Info) Description 05/09/2024 Telephone Gastroenterology - [place] [address] [place] [address] Glen Nino PA [address] [place] [address] Medication Problem Social History Tobacco Use Types [...] for your loved ones. For example, child and family counselor or elderly care for an older adult? [...] AM EST documented as of this encounter Ordered Prescriptions Prescription Sig Dispense Quantity Refills Last Filled Start Date End Date ondansetron (ZOFRAN) 4 mg tablet Take 1 tablet (4 mg total) by mouth 3 (three) times a day. 50 tablet 6 05/10/2024 loperamide (Imodium A-D) 2 mg tablet Take 1 tablet (2 mg total) by mouth 4 (four) times a day if needed for diarrhea. 60 tablet 11 05/10/2024 documented in this encounter Progress Notes * ADRYAN Jensen - 05/10/2024 1:24 PM EST Patient is having issues with nausea as well as passage of loose stools. Will order Zofran and Imodium and see if that will help * Floresita Mtz MA - 05/10/2024 12:17 PM EST I have spoke with patient and she states that she will take the Zofran and Immodium, Please send into the pharmacy. * ADRYAN Jensen - 05/09/2024 4:19 PM EST Please advise patient that these are side effects that can be managed as she is only going to be onthis medication short-term and that if she needs medicine for diarrhea, we can give her Imodium andif she is having nausea we can give her Zofran but she needs to complete the antibiotic treatment * Chely He - 05/09/2024 1:24 PM EST Patient calling, states was given amoxicillin at last appointment however amoxicillin gives her diarrhea and nausea. Requesting different medication. Please advise. documented in this encounter Plan of Treatment Upcoming Encounters Date Type Department Care Team (Late st Contact Info) Description 05/20/2024 10:10 AM EST Appointment Radiology Department - [address] [phone] 05/20/2024 10:30 AM EST Appointment Radiology Department - [address] [phone] 06/03/2024 2:10 PM EDT Appointment Radiology Department - [address] [phone] 07/09/2024 2:00 PM EDT Office Visit Urogynecology - [address] [phone] Kym Christine MD [address] [place] [address] 07/18/2024 3:00 PM EDT Office Visit Adult Medicine South - [address] [phone] Daphne Almanza MD [address] [place] [address] documented as of this encounter Visit Diagnoses Not on filedocumented in this encounter Additional Health Concerns Assessment Noted Time PHQ-9 Depression Total Score: 1 04/15/19 25 2:51 PM EST documented as of this encounter Care Teams Adaptive Physical Education Specialist Relationship Specialty Start Date End Date Dpahne Almanza MD [address] [place] [address] PCP - General Internal Medicine 11/30/13 documented as of this encounter
--- OUTSIDE RECORDS SUMMARY | 2024-05-16 15:25 | XMS_ITS | Encounter Summary ---
Author Organization [facility] Address [address] [place] [address] Care Team Providers Care Nuclear Officer Name Role Phone Daphne Almanza MD Primary Care Provider [phone] Encounter Details Date Type Department Care Team (Late st Contact Info) Description 05/01/2024 Telephone Gastroenterology - [place] [address] [place] [address] Glen Nino PA [address] [place] [address] Social History Tobacco Use Types Packs/Day Years [...] for your loved ones. For example, children's literature professor or elderly care for an older adult? [...] as of this encounter Progress Notes * Floresita Mtz MA - 05/06/2024 10:20 AM EST Patient has office visit with ADRYAN Wyman today, 05/06/24 * ADRYAN Jensen - 05/01/2024 12:46 PM EST If she is having issues with burping, then she could have the Protonix which will help settle her stomach or she could do the Pepcid. Additionally she can try Mylanta or Maalox that can be purchased [id number]-kmikafm. As far as her abdominal pain goes we are not able to discern what is causing her pain and if she continues to have the pain, she may need to seen at the ER for further evaluation. documented in this encounter Plan of Treatment Upcoming Encounters Date Type Department Care Team (Late st Contact Info) Description 05/20/2024 10:10 AM EST Appointment Radiology Department - [address] [phone] 05/20/2024 10:30 AM EST Appointment Radiology Department - [address] [phone] 06/03/2024 2:10 PM EDT Appointment Radiology Department - [address] [phone] 07/09/2024 2:00 PM EDT Office Visit Urogynecology - [address] [phone] Kym Christine MD [address] [place] [address] 07/18/2024 3:00 PM EDT Office Visit Adult Medicine South - [address] [phone] Daphne Almanza MD [address] [place] [address] documented as of this encounter Visit Diagnoses Not on filedocumented in this encounter Discontinued Medications Medication Sig Discontinue Reason Start Date End Da te famotidine (Pepcid) 20 mg tablet Take 1 tablet (20 mg total) by mouth 2 (two) times a day if needed for heartburn. 04/12/2024 05/01/2024 ldqgrhgze-ecpqgdif-yeymw -w.pet (Preparation H Maximum Strength) 0.25-1 % cream Insert 0.0385 each into the rectum 2 (two) times a day if needed (rectal irritation). 04/12/2024 05/01/2024 documented as of this encounter Additional Health Concerns Assessment Noted Time PHQ-9 Depression Total Score: 1 04/15/19 25 2:51 PM EST documented as of this encounter Care Teams Nuclear Officer Relationship Specialty Start Date End Date Daphne Almanza MD [address] [place] [address] PCP - General Internal Medicine 11/30/13 documented as of this encounter
--- OUTSIDE RECORDS SUMMARY | 2024-05-16 15:25 | XMS_ITS | Encounter Summary ---
Author Organization [facility] Address [address] [place] [address] Care Team Providers Care Waste Salvager Name Role Phone Daphne Almanza MD Primary Care Provider [phone] Reason for Visit * Reason Onset Date Comments Appointment 05/07/2024 Encounter Details Date Type Department Care Team (Late st Contact Info) Description 05/07/2024 Telephone Adult Medicine [address] [phone] Rhiannon Kumar MA Appointment Social History Tobacco Use Types Packs/Day Years [...] for your loved ones. For example, child health associate or elderly care for an older adult? [...] as of this encounter Progress Notes * Rhiannon Kumar MA - 05/07/2024 9:26 AM EST Message left for patient to return my call. Will try again later. If pt calls back please forward call to [phone] Lidia Pt was scheduled today for Hospital follow up needs clarification as to what this appt is for. Ptsaw obgyn for this issue. Appt not appropriate. documented in this encounter Plan of Treatment Upcoming Encounters Date Type Department Care Team (Late st Contact Info) Description 05/20/2024 10:10 AM EST Appointment Radiology Department - [address] [phone] 05/20/2024 10:30 AM EST Appointment Radiology Department - [address] [phone] 06/03/2024 2:10 PM EDT Appointment Radiology Department - [address] [phone] 07/09/2024 2:00 PM EDT Office Visit Urogynecology - [address] [phone] Kym Christnie MD [address] [place] [address] 07/18/2024 3:00 PM EDT Office Visit Adult Medicine South - [address] [phone] Daphne Almanza MD [address] [place] [address] documented as of this encounter Visit Diagnoses Not on filedocumented in this encounter Additional Health Concerns Assessment Noted Time PHQ-9 Depression Total Score: 1 04/15/19 25 2:51 PM EST documented as of this encounter Care Teams Waste Salvager Relationship Specialty Start Date End Date Daphne Almanza MD [address] [place] [address] PCP - General Internal Medicine 11/30/13 documented as of this encounter
--- OUTSIDE RECORDS SUMMARY | 2024-05-16 15:25 | XMS_ITS | Encounter Summary ---
Author Organization [facility] Address [address] [place] [address] Care Team Providers Care Real Estate Salesperson Name Role Phone Daphne Almanza MD Primary Care Provider [phone] Reason for Visit * Reason Comments Diverticulitis Encounter Details Date Type Department Care Team (Late st Contact Info) Description 05/06/2024 9:20 AM EST Office Visit Gastroenterology - [place] [address] [place] [id number] Andrew Nino PA [address] [place] [address] Dyspepsia (Primary Dx); Bloating; Enteritis; Rectal irritation; Vascular abnormality Social History Tobacco Use Types Packs/Day Years [...] care for your loved ones. For example, vp care management or elderly care for an older adult? [...] Sign Reading Time Taken Comments Blood Pressure 124/80 05/06/2024 9:20 AM EST Pulse 89 05/06/2024 9:20 AM EST Temperature - - Respiratory Rate - - Oxygen Saturation 99% 05/06/2024 9:20 AM EST Inhaled Oxygen Concentration - - Weight 68.1 kg (150 lb 3.2 oz) 05/06/2024 9:20 A M EST Height 160 cm (5' 3 ) 05/06/2024 9:20 AM EST Body Mass Index 26.61 05/06/2024 9:20 AM EST documented in this encounter Patient Instructions * Attachments The following attachments cannot be sent through Care Everywhere. * Gas and Bloating ([place]) * Abdominal Pain ([place]) * Dyspepsia ([place]) * Colitis ([place]) * Mesenteric Artery Stenosis: General Info ([place]) documented in this encounter Ordered Prescriptions Prescription Sig Dispense Quantity Refills Last Filled Start Date End Date aluminum-magnesium hydroxide-simethic one (MAALOX) 200-200-20 mg/5 mL suspension Take 30 mL by mouth 4 (four) times a day (before meals and nightly). 769 mL 11 05/06/2024 phenyleph-pramoxin -glycr-w.pet (Preparation H Maximum Strength) 0.25-1 % cream Insert 0.0385 each into the rectum 2 (two) times a day if needed (rectal irritation). 30 g 11 05/06/2024 amoxicillin-clavul anate (AUGMENTIN) 875-125 mg per tablet Take 1 tablet by mouth 2 (two) times a day for 14 days. 28 each 05/06/2024 05/20/2024 documented in this encounter Progress Notes * ADRYAN Jensen - 05/06/2024 9:20 AM EST Patient seen in follow up for recent ER visit at [facility]. Patient was seen on 05/01 for ongoing abdominalpain. Patient did have a CT angiogram and was noted to have enteritis in the distal colon which we will treat with augmentin. This may be causing the rectal discharge and will use preparation h for soothing of the rectum. Patient is also having also of dyspepsia and will order mylanta to help settle her stomach. The Ct performed at [facility] had noted narrowing of the SMA and renal vessels. Patient is scheduled to seen Dr Nevarez at [facility] for further evaluation. Patient is also aware that she does not have diverticulosis or diverticulitis. Patient to contact office with update on sxs * ADRYAN Jensen - 05/06/2024 9:20 AM EST DENTIFIER: Nila Banks is a 63 y.o. old female who presents to the gastroenterology department today for re-evaluation of abdominal pain. HPI: 63-year-old female seen in follow up for recent ER visit at [facility]. Patient is accompanied by her adult daughter. Patient was seen on 05/01 at [facility] ER for ongoing abdominal pain. Patient did have a CT angiogram and was noted to have enteritis in the distal colon which we will treat with augmentin. This may be causing the rectal discharge and will use preparation h for soothing of the rectum. Patient is also having also of dyspepsia and will order mylanta to help settle her stomach. The Ct performed at [facility] had noted narrowing of the SMA and renal vessels. Patient is scheduled to seen Dr Nevarez at [facility] for further evaluation as these narrowed blood vessels could be causing her abdominal pain. . Patient is also aware that she does not have diverticulosis or diverticulitis. Patient to contactoffice with update on sxs ROS: GENERAL: No malaise, significant weight loss or fever HEENT: No changes in hearing or vision, nose bleeds or swallowing problems NECK: No lumps, goiter, pain or significant neck swelling RESPIRATORY: No cough, wheezing or shortness of breath CARDIOVASCULAR: No chest pain, leg swelling or palpitations, positive for narrowing of blood vessels in the SMA GI: Positive for enteritis, rectal discharge, dyspepsia MUSCULOSKELETAL: No joint pain or swelling, back [...] Outpatient Medications Marked as Taking for the 05/06/24 encounter (Office Visit) with ADRYAN Jensen Medication [...] 5 busPIRone (BUSPAR) 30 mg tablet TOME HCARLES TABLETA DOS VECES AL D A eszopiclone [...] capsule 150 mg. 1 Tab daily ALLERGIES: @ALL@ PHYSICAL EXAM: Visit Vitals BP 124/80 (BP Location: Left arm, Patient Position: Sitting) Pulse 89 Ht 1.6 m (63 ) Wt 68.1 kg (150 lb 3.2 oz) SpO2 99% BMI 26.61 kg/m?? OB Status Hysterectomy Smoking Status Former BSA 1.71 m?? APPEARANCE: Alert and in no acute distress EYES: PERRLA, conjunctiva and sclera normal. MOUTH/THROAT: no erythema or exudates NECK: Neck supple, no adenopathy HEART: RRR with normal S1 and S2, no murmurs appreciated LUNG: clear to auscultation LYMPH NODES: grossly normal ABDOMEN: Soft, nontender, normal active bowel sound throughout, no organomegaly RECTAL: Exam deferred. EXTREMITIES: Extremities warm and well perfused SKIN: Skin color, texture, turgor normal. LABS: Lab Results Component Value Date WBC 9.4 04/17/2024 WBC 8.4 04/12/2024 WBC 5.5 03/23/2024 HGB 12.9 04/17/2024 HGB 13.7 04/12/2024 HGB 12.4 03/23/2024 HCT 39.4 04/17/2024 HCT 42.7 04/12/2024 HCT 38.4 03/23/2024 MCV 92.5 04/17/2024 MCV 93.6 04/12/2024 MCV 91.4 03/23/2024 PLT 255 04/17/2024 PLT 300 04/12/2024 PLT 269 03/23/2024 NA 139 04/17/2024 NA 139 04/12/2024 NA 140 03/23/2024 K 4.8 04/17/2024 K 4.9 04/12/2024 K 4.1 03/23/2024 CL 107 04/17/2024 CL 107 04/12/2024 CL 110 03/23/2024 CO2 30 04/17/2024 CO2 27 04/12/2024 CO2 27 03/23/2024 GLUCOSE 103 (H) 04/17/2024 GLUCOSE 88 04/12/2024 GLUCOSE 105 (H) 03/23/2024 BUN 17 04/17/2024 BUN 24 04/12/2024 BUN 15 03/23/2024 CREATININE 0.97 04/17/2024 CREATININE 0.91 04/12/2024 CREATININE 1.03 03/23/2024 CALCIUM 9.6 04/17/2024 CALCIUM 9.6 04/12/2024 CALCIUM 9.3 03/23/2024 PROT 7.9 04/17/2024 PROT 8.2 (H) 04/12/2024 PROT 7.8 03/23/2024 ALBUMIN 4.0 04/17/2024 ALBUMIN 4.3 04/12/2024 ALBUMIN 3.7 03/23/2024 BILITOT 0.3 04/17/2024 BILITOT 0.4 04/12/2024 BILITOT 0.4 04/12/2024 AST 28 04/17/2024 AST 27 04/12/2024 AST 99 (H) 03/23/2024 ALT 40 04/17/2024 ALT 67 (H) 04/12/2024 ALT 309 (H) 03/23/2024 ALKPHOS 94 04/17/2024 ALKPHOS 103 04/12/2024 ALKPHOS 175 (H) 03/23/2024 EGFR 66 04/17/2024 EGFR 71 04/12/2024 EGFR 61 03/23/2024 Lab Results Component Value Date IRON 90 04/12/2024 FERRITIN 93 04/12/2024 LIPASE 54 04/17/2024 IMAGING: CT Abdomen Pelvis w Contrast Narrative: PROCEDURE: CT ABDOMEN/PELVIS WITH CONTRAST INDICATION: llq [...] ORGANS/BLADDER: Status post hysterectomy. No pelvic mass. Bladder grossly unremarkable. PERITONEUM / RETROPERITONEUM: No ascites or free air. No retroperitoneal lymphadenopathy. VESSELS: Scattered atherosclerotic calcifications throughout the aorta and its major branches. No aneurysm. GI TRACT: No bowel distention or wall thickening. Normal appendix. BONES AND SOFT TISSUES: Minimal degenerative changes seen throughout the bones. Soft tissues are unremarkable. Impression: No CT correlate for left lower quadrant pain. Incidental findings as above. -------- FINAL REPORT -------- Dictated By: Evon Sargent Dictated Date: 04/26/2024 17:11 ET Assigned Physician: Evon Sargent Reviewed and Electronically Signed By: Evon Sargent Signed Date: 04/26/2024 17:15 ET Workstation ID: [id number] Transcribed By: Self Edit Transcribed Date: 04/26/2024 17:[address] Results for orders placed during the hospital encounter of 04/26/24 CT Abdomen Pelvis w Contrast Narrative PROCEDURE: CT ABDOMEN/PELVIS WITH CONTRAST INDICATION: llq [...] ORGANS/BLADDER: Status post hysterectomy. No pelvic mass. Bladder grossly unremarkable. PERITONEUM / RETROPERITONEUM: No ascites or free air. No retroperitoneal lymphadenopathy. VESSELS: Scattered atherosclerotic calcifications throughout the aorta and its major branches. No aneurysm. GI TRACT: No bowel distention or wall thickening. Normal appendix. BONES AND SOFT TISSUES: Minimal degenerative changes seen throughout the bones. Soft tissues are unremarkable. Impression No CT correlate for left lower quadrant pain. Incidental findings as above. -------- FINAL REPORT -------- Dictated By: Evon Sargent Dictated Date: 04/26/2024 17:11 ET Assigned Physician: Evon Sargent Reviewed and Electronically Signed By: Evon Sargent Signed Date: 04/26/2024 17:15 ET Workstation ID: [id number] Transcribed By: Self Edit Transcribed Date: 04/26/2024 17:11 ET US Results for orders placed during the [...] Darien Santo MD on 03/24/2024 01:07:36 CT angiogram from [facility] to be scanned in the patient's chart IMPRESSION: 1. Dyspepsia 2. Bloating 3. Enteritis 4. Rectal irritation 5. Vascular abnormality PLAN: 1. Dyspepsia, bloating, enteritis, rectal irritation, vascular abnormality Patient continues to have this abdominal pain and she once again was seen in the ER on May 01 at [facility]. She did undergo a CT angiogram and they had noted that she does have enteritis which could also explain why she is having some of this rectal itching. We have ordered Augmentin to use for the enteritis and she will continue to use the Preparation H for the rectal irritation. Patient's CT angiogram had revealed that there was some narrowing to the renal arteries as well as the SMA and this could certainly cause her abdominal pain. Patient is to be seen by vascular at [facility] in mid April and hopefully she can undergo studies for further evaluation and treatment. Patient is to contact office with any questions or concerns Total time of today's encounter is 38 minutes in preparing to see the patient, reviewing labs, diagnostic studies as well as other provider notes, documenting in charting, creating an HPI, performinga medically appropriate exam, counseling patient at length in regards to CT angiogram, abdominal pain, enteritis and rectal itching as well as prescribing medication. There was documentation in EMR after visit. None of which time was spent performing separately billable procedures or ancillary services. Much appreciation for allowing us to participate in patient's care No orders of the defined types were placed in this encounter. ADDITIONAL ORDERS: None ADRYAN Jensen documented in this encounter Plan of Treatment Upcoming Encounters Date Type Department Care Team (Late st Contact Info) Description 05/20/2024 10:10 AM EST Appointment Radiology Department - [address] [phone] 05/20/2024 10:30 AM EST Appointment Radiology Department - [address] [phone] 06/03/2024 2:10 PM EDT Appointment Radiology Department - [address] [phone] 07/09/2024 2:00 PM EDT Office Visit Urogynecology - [address] [phone] Kym Christine MD [address] [place] [address] 07/18/2024 3:00 PM EDT Office Visit Adult Medicine [facility] - [address] [phone] Daphne Almanza MD [address] [place] [address] documented as of this encounter Visit Diagnoses Diagnosis Dyspepsia- Primary Dyspepsia and other specified disorders of function of stomach Bloating Flatulence, eructation, and gas pain Enteritis Other and unspecified noninfectious gastroenteritis and colitis Rectal irritation Other specified disorder of rectum and anus Vascular abnormality Encounter for screening mammogram for breast cancer documented in this encounter Historical Medications * This list may reflect changes made after this encounter. oxyCODONE (OXY-IR) 5 mg immediate release capsule TAKE 1 CAPSULE BY MOUTH EVERY 8 HOURS NEEDED FOR PAIN FOR 3 DAYS 05/01/2024 added in this encounter Additional Health Concerns Assessment Noted Time PHQ-9 Depression Total Score: 1 04/15/19 25 2:51 PM EST documented as of this encounter Care Teams Real Estate Salesperson Relationship Specialty Start Date End Date Daphne Almanza MD [address] [place] [address] PCP - General Internal Medicine 11/30/13 documented as of this encounter
--- OUTSIDE RECORDS SUMMARY | 2024-05-16 15:25 | XMS_ITS | Encounter Summary ---
Author Organization [facility] Address [address] [place] [address] Care Team Providers Care Computer Assistant Name Role Phone Daphne Almanza MD Primary Care Provider [phone] Reason for Referral * Imaging (Routine) - Closed Specialty Diagnoses / Procedures Referred By Contac t Referred To Contact Radiology Diagnoses Diverticulosis H/O diverticulitis of colon LLQ pain Elevated liver enzymes Gastroesophageal reflux disease without esophagitis Rectal irritation Procedures CT Abdomen Pelvis w Contrast Glen Nino PA [address] [address] Phone: tel: fax: [facility] CT Scan [address] [place] [address] Phone: tel: Referral ID Status Reason Start Date Expiration Date Visits Re quested Visits Authorized [id number] Closed 04/19/2024 06/18/2024 1 1 Reason for Visit * Imaging (Routine) - Closed Specialty Diagnoses / Procedures Referred By Contac t Referred To Contact Radiology Diagnoses Diverticulosis H/O diverticulitis of colon LLQ pain Elevated liver enzymes Gastroesophageal reflux disease without esophagitis Rectal irritation Procedures CT Abdomen Pelvis w Contrast Glen Nino PA [address] [address] Phone: tel: fax: [facility] CT [address] [place] [address] Phone: tel: Referral ID Status Reason Start Date Expiration Date Visits Re quested Visits Authorized [id number] Closed 04/19/2024 06/18/2024 1 1 Encounter Details Date Type Department Care Team (Latest Contact Info) Description 04/26/2024 4:16 PM EST - 04/26/2024 11:59 PM EST Hospital Encounter [facility] CT [address] [place] [address] Diverticulosis; H/O diverticulitis of colon; [...] your loved ones. For example, child care worker or elderly care for an older [...] AM EST documented as of this encounter Medications at [...] times a day. 30 g 11 04/12/2024 6 LORazepam (ATIVAN) 0.5 mg tablet JENNYFER LOONEY [...] for 10 days. 20 tablet 04/18/2024 5 famotidine (Pepcid) 20 mg [...] 04/12/2024 5 documented as of this encounter Discharge Disposition Disposition Code Departure Means Destination Home or Self Care documented in this encounter Plan of Treatment Upcoming Encounters Date Type Department Care Team ([facility] st Contact Info) Description 05/20/2024 10:10 AM EST Appointment Radiology Department [address] [phone] 05/20/2024 10:30 AM EST Appointment Radiology Department - [address] [phone] 06/03/2024 2:10 PM EDT Appointment Radiology Department - [address] [phone] 07/09/2024 2:00 PM EDT Office Visit Urogynecology - [address] [phone] Kym Christine MD [address] [place] [address] 07/18/2024 3:00 PM EDT Office Visit Adult Medicine South - [address] [phone] Daphne Almanza MD [address] [place] [address] documented as of this encounter Procedures Procedure [...] Signed Date: 04/26/2024 17:15 ET Workstation ID: [id number] Transcribed By: Self Edit Transcribed Date: 04/26/2024 [...] Signed Date: 04/26/2024 17:15 ET Workstation ID: [id number] Transcribed By: Self Edit Transcribed Date: 04/26/2024 17:11 ET [address] [facility] [address] PROCEDURES Final Result documented in this encounter Visit Diagnoses Diagnosis [...] documented as of this encounter Care Teams Computer Assistant Relationship Specialty Start Date End Date Daphne Almanza MD [address] [place] [address] PCP - General Internal Medicine 11/30/13 documented as of this encounter
--- OUTSIDE RECORDS SUMMARY | 2024-05-16 15:25 | XMS_ITS | Encounter Summary ---
Author Organization [facility] Address [address] [place] [address] Care Team Providers Care Assigner Name Role Phone Daphne Almanza MD Primary Care Provider [phone] Encounter Details Date Type Department Care Team (Late st Contact Info) Description 01/01/2024 2:30 PM EDT Hospital Encounter TH [facility]OR[facility] Daphne Almanza MD [address] [place] [address] Social History Tobacco Use Types Packs/Day Years [...] your loved ones. For example, child and adolescent therapist or elderly care for an older adult? [...] AM EST documented as of this encounter Plan of Treatment Upcoming Encounters Date Type Department Care Team (Late st Contact Info) Description 05/20/2024 10:10 AM EST Appointment Radiology Department - [address] [phone] 05/20/2024 10:30 AM EST Appointment Radiology Department - [address] [phone] 06/03/2024 2:10 PM EDT Appointment Radiology Department - [address] [phone] 07/09/2024 2:00 PM EDT Office Visit Urogynecology - [address] [phone] Kym Christine MD [address] [place] [address] 07/18/2024 3:00 PM EDT Office Visit Adult Medicine [facility] - [address] [phone] Daphne Almanza MD [address] [place] [address] documented as of this encounter Visit Diagnoses Not on filedocumented in this encounter Care Teams Assigner Relationship Specialty Start Date End Date Daphne Almanza MD [address] [place] [address] PCP - General Internal Medicine 11/30/13 documented as of this encounter
== END 2024-05-16 14:50 | disposition home or self-care (01) ==
PROVIDERS: PCP Internal Medicine; Visit Provider Surgery Vascular Surgery
DX: K55.1 Chronic vascular disorders of intestine (principal)
CPT/HCPCS: 99204

== ENCOUNTER → 2024-05-16 14:15 | Outpatient (BNVA) | payer OTHER, SELFPAY | PROVIDERS: PCP Internal Medicine; Visit Provider Surgery Vascular Surgery | DX: K55.1 Chronic vascular disorders of intestine (principal) | CPT/HCPCS: 99202 ==

== ENCOUNTER 2024-06-18 08:02 | Outpatient (REF) | payer OTHER, SELFPAY ==
--- NOTE | ~2024-06-18 | US_ITS ---
CLINICAL HISTORY: K55.1 - Chronic vascular disorders of intestine ULTRASOUND MESENTERIC ARTERIES Comparison: None Findings: Fasting study was performed. Visualized proximal abdominal aorta is normal caliber with normal peak systolic velocities and waveforms. Celiac artery: Peak systolic velocities range from 100-117 cm/second ( on inspiration and expiration with supine and upright imaging performed ). There are normal waveforms. No findings to suggest compression syndrome. SMA: Proximal, mid and distal peak systolic velocities are 222, 256 and 100 cm per 2nd, respectively. There are normal waveforms. SHUN: Peak systolic velocity 93 cm/second. There are normal waveforms. Splenic artery: Limited visualization with grossly normal waveforms and peak systolic velocity approximately 102 cm/second. Hepatic artery: Normal waveforms with peak systolic velocity 87 cm/second. Impression: 1. No flow-limiting stenosis identified in the celiac or superior mesenteric arteries. This document has been electronically signed by: Marybel Farley DO on 06/18/2024 17:31:23
--- OUTSIDE RECORDS SUMMARY | 2024-06-18 08:16 | XMS_ITS | Encounter Summary ---
Author Organization [facility] Address [address] [place] [address] Care Team Providers Care Machine Shorthand Teacher Name Role Phone Daphne Almanza MD Primary Care Provider [phone] Daphne Almanza MD Unavailable [phone] Encounter Details Date Type Department Care Team Description 06/02/2023 Contact Lens Blocker Report Medical Records [address] [place] [address] Victor Hugo Mckeon PA Social History Tobacco [...] on filedocumented in this encounter Care Teams Machine Shorthand Teacher Relationship Specialty Start Date End Date Daphne Almanza MD [address] [place] [address] [id number] PCP - General Internal Medicine 07/31/15 Daphne Almanza MD [address] [place] [address] 07/29/15 documented as of this encounter
--- OUTSIDE RECORDS SUMMARY | 2024-06-18 08:16 | XMS_ITS | Encounter Summary ---
Author Organization [facility] Address [address] [place] [address] Care Team Providers Care Leaf Binner Name Role Phone Daphne Almanza MD Primary Care Provider [phone] Daphne Almanza MD Unavailable [phone] Encounter Details Date Type Department Care Team Description 12/14/2018 Release of Information Medical Records [address] [place] [id number] Abstract, Provider Social History Tobacco Use Types [...] on filedocumented in this encounter Care Teams Leaf Binner Relationship Specialty Start Date End Date Daphne Almanza MD [address] [place] [phone] PCP - General Internal Medicine 07/31/15 Daphne Almanza MD [address] [place] [address] 07/29/15 documented as of this encounter
--- OUTSIDE RECORDS SUMMARY | 2024-06-18 08:16 | XMS_ITS | Encounter Summary ---
Author Organization [facility] Address [address] [place] [address] Care Team Providers Care Sterile Supervisor Name Role Phone Daphne Almanza MD Primary Care Provider [phone] Daphne Almanza MD Unavailable [phone] Reason for Visit * Reason Onset Date Comments Provider Call Back 04/27/2021 Encounter Details Date Type Department Care Team Description 04/27/2021 Telephone Gastroenterology - [place] [address] [phone] Andrew Nino PA-C [address] [address] Provider Call Back Social History Tobacco Use [...] have Coronavirus / COVID-19? No / Unsure 04/15/2021 10:12 AM EST documented as of this encounter Miscellaneous Notes * Telephone Encounter - Jennyfer Guaman - 04/28/2021 3:05 PM EST Spoke to patient and let her know suppositories have been sent to the pharmacy. * Telephone Encounter - Andrew Nino PA-C - 04/28/2021 2:22 PM EST Patient is having issues with rectal pain. Remarks that the hemorrhoid cream is not helping any longer. Please let her know that we have sent Anusol suppositories to see if that will help with her rectal pain. If this does not help then we will have to refer to colorectal surgeons for further evaluation. * Telephone Encounter - Jennyfer Guaman - 04/28/2021 1:50 PM EST Please advise, thanks. * Telephone Encounter - Maria Victoria Al - 04/27/2021 3:24 PM EST Patients daughter is calling stating that the cream she was prescribed at last office visit did help only for a little. States it is no longer helping and the rectal pain is intense. States she is very desperate for relief. , would like to know if there is something different that can help. documented in this encounter Plan of Treatment Not on file documented as of this encounter Visit Diagnoses Not on filedocumented in this encounter Care Teams Sterile Supervisor Relationship Specialty Start Date End Date Daphne Almanza MD [address] [place] [address] PCP - General Internal Medicine 07/31/15 Daphne Almanza MD [address] [place] [address] 07/29/15 documented as of this encounter
--- OUTSIDE RECORDS SUMMARY | 2024-06-18 08:16 | XMS_ITS | Encounter Summary ---
Author Organization [facility] Address [address] [place] [address] Care Team Providers Care Director Skills Name Role Phone Daphne Almanza MD Primary Care Provider [phone] Daphne Almanza MD Unavailable [phone] Reason for Visit * Reason Comments E-prescribe Rx Request Encounter Details Date Type Department Care Team Description 04/03/2023 Refill Gastroenterology - [place] [address] [phone] Andrew Nino PA-C [address] [address] E-prescribe Rx Request Social History Tobacco Use [...] on filedocumented in this encounter Care Teams Director Skills Relationship Specialty Start Date End Date Daphne Almanza MD [address] [place] [phone] PCP - General Internal Medicine 07/31/15 Daphne Almanza MD [address] [place] [address] 07/29/15 documented as of this encounter
--- OUTSIDE RECORDS SUMMARY | 2024-06-18 08:16 | XMS_ITS | Encounter Summary ---
Author Organization [facility] Address [address] [place] [address] Care Team Providers Care Hot Wound Spring Production Supervisor Name Role Phone Daphne Almanza MD Primary Care Provider [phone] Daphne Almanza MD Unavailable [phone] Reason for Visit * Reason Onset Date Comments Medication 06/22/2021 Encounter Details Date Type Department Care Team Description 06/22/2021 Refill Gastroenterology - [place] 175 [facility] [address] [place] [phone] Pavan Ozuna MD 175 [facility] [address] [place] [address] Medication Social History Tobacco Use Types Packs/Day [...] on filedocumented in this encounter Care Teams Hot Wound Spring Production Supervisor Relationship Specialty Start Date End Date Daphne Almanza MD [address] [place] [address] [phone] PCP - General Internal Medicine 07/31/15 Daphne Almanza MD [address] [place] [address] 07/29/15 documented as of this encounter
--- OUTSIDE RECORDS SUMMARY | 2024-06-18 08:16 | XMS_ITS | Encounter Summary ---
Author Organization [facility] Address [address] [place] [address] Care Team Providers Care Sugar Cane Planter Machine Operator Name Role Phone Daphne Almanza MD Primary Care Provider [phone] Daphne Almanza MD Unavailable [phone] Reason for Visit * Reason Onset Date Comments TEST RESULTS 09/14/2018 Encounter Details Date Type Department Care Team Description 09/14/2018 Telephone Adult Medicine [facility] [address] [place] [address] [phone] Daphne Almanza MD [address] [place] [address] [phone] TEST RESULTS Social History Tobacco Use Types Packs/Day Years [...] encounter Miscellaneous Notes * Telephone Encounter - Joanne Rodriguez M.A. - 09/14/2018 9:23 AM EDT Called patient and asked for a call back. Her voicemail was in indonesian so im not sure if she understood. If no answer by the end of the day I will have someone who speaks indonesian call documented in this encounter Plan of Treatment Not on file documented as of this encounter Visit Diagnoses Not on filedocumented in this encounter Care Teams Sugar Cane Planter Machine Operator Relationship Specialty Start Date End Date Daphne Almanza MD [address] [place] [address] PCP - General Internal Medicine 07/31/15 Daphne Almanza MD [address] [place] [phone] 07/29/15 documented as of this encounter
--- OUTSIDE RECORDS SUMMARY | 2024-06-18 08:16 | XMS_ITS | Encounter Summary ---
Author Organization [facility] Address [address] [place] [address] Care Team Providers Care Cell Changer Name Role Phone Daphne Almanza MD Primary Care Provider [phone] Daphne Almanza MD Unavailable [phone] Encounter Details Date Type Department Care Team Description 06/08/2023 Telephone Adult Medicine [address] [phone] Daphne Almanza MD [address] [place] [address] Social History Tobacco Use Types Packs/Day Years [...] on filedocumented in this encounter Care Teams Cell Changer Relationship Specialty Start Date End Date Daphne Almanza MD [address] [place] [address] PCP - General Internal Medicine 07/31/15 Daphne Almanza MD [address] [place] [address] 07/29/15 documented as of this encounter
--- OUTSIDE RECORDS SUMMARY | 2024-06-18 08:17 | XMS_ITS | Encounter Summary ---
Author Organization [facility] Address [address] [place] [address] Care Team Providers Care Packer Name Role Phone Daphne Almanza MD Primary Care Provider [phone] Daphne Almanza MD Unavailable [phone] Encounter Details Date Type Department Care Team Description 03/29/2023 Orders Only Medical Records [address] [place] [address] Kayode Daniels MD Social History Tobacco Use Types Packs/Day [...] Name Priority Date/Time Associated Diagnosis Comments OUTSIDE BARIUM SWALLOW Routine 03/22/2023 documented in this encounter Results * OUTSIDE BARIUM SWALLOW (03/22/2023) Kayode Daniels MD RADIOLOGY documented in this encounter Visit Diagnoses Not on filedocumented in this encounter Care Teams Packer Relationship Specialty Start Date End Date Daphne Almanza MD [address] [place] [address] PCP - General Internal Medicine 07/31/15 Daphne Almanza MD [address] [place] [address] 07/29/15 documented as of this encounter
--- OUTSIDE RECORDS SUMMARY | 2024-06-18 08:17 | XMS_ITS | Encounter Summary ---
Author Organization [facility] Address [address] [place] [address] Care Team Providers Care Retail Cashier Name Role Phone Daphne Almanza MD Primary Care Provider [phone] Daphne Almanza MD Unavailable [phone] Reason for Visit * Reason Onset Date Comments Faxed Order 01/04/2021 Encounter Details Date Type Department Care Team Description 01/04/2021 Telephone Adult Medicine [facility] [address] [place] [address] [phone] Daphne Almanza MD [address] [place] [address] Faxed Order Social History Tobacco Use Types [...] 11:19 AM EDT Fax received from [facility] requesting Dr. Daphne Almanza's signature documented in this encounter Plan of Treatment Not on file documented as of this encounter Visit Diagnoses Not on filedocumented in this encounter Care Teams Retail Cashier Relationship Specialty Start Date End Date Daphne Almanza MD [address] [place] [address] [phone] PCP - General Internal Medicine 07/31/15 Daphne Almanza MD [address] [place] [address] 07/29/15 documented as of this encounter
--- OUTSIDE RECORDS SUMMARY | 2024-06-18 08:17 | XMS_ITS | Encounter Summary ---
Author Organization [facility] Address [address] [place] [address] Care Team Providers Care Animal Assisted Therapist Name Role Phone Daphne Almanza MD Primary Care Provider [phone] Daphne Almanza MD Unavailable [phone] Encounter Details Date Type Department Care Team Description 02/24/2021 Technical Services Analyst Report Medical Records [address] [place] [address] Abstract, Provider Social History Tobacco Use Types [...] on filedocumented in this encounter Care Teams Animal Assisted Therapist Relationship Specialty Start Date End Date Daphne Almanza MD [address] [place] [address] PCP - General Internal Medicine 07/31/15 Daphne Almanza MD [address] [place] [address] 07/29/15 documented as of this encounter
--- OUTSIDE RECORDS SUMMARY | 2024-06-18 08:18 | XMS_ITS | Data Portability ---
Author Organization [facility] Address [address] [place] [address] Care Team Providers Care Chemical Unit Operator Name Role Phone ROSHNI, DEVYN Primary Care Provider Assessment No assessment recorded. Plan of Treatment Reminders Order Date Submit Date Provider Last Modified By Organization Details Last Modified Time Details Appointments None recorded. Lab None recorded. Referral None recorded. Procedures None recorded. Surgeries None recorded. Imaging None recorded. Medication Orders olopatadine 0.1 % eye drops 2022 023 [id number], [address] [place] [address], [address], 3 16:15:39 ciprofloxac in 0.3 % eye drops 2022 023 [id number], [address] [place], [address], 3 16:15:39 Medrol (Constantin) 4 mg tablets in a dose pack 2022 023 [id number], [address] [place] [address], [address], 3 15:36:43 Patient TargetsNo targets recorded. Patient Instructions Encounter Date Encounter Id Patient Instructions Last Modified By Organization Details Last Modified Time 04/06/2022 [id number] Eczema: Care Instructions Not available 04/06/2022 15:22:26 [...] as you are not taking any other [id number] or prescription medications which already contain Acetaminophen (the same ingredient that is in Tylenol). Not available 04/06/2022 16:08:48 08/12/2022 [id number] Based on your presentation and exam, you [...] next 1 week. Thank you for using [facility] today, please feel free to contact us with any questions or concerns. [email or web address] Not available 08/12/2022 16:15:35 Reason for Referral None Reported. Problems Name Problem SNOMED Code Status Onset Date Resolution Date Notes Provider Name and Address Organization Details Recorded Time Gastroesophage al reflux disease 185500749 Active 2022 ANGEL lowery, [place] - [facility] 3 14:39:43 Fibromyalgia 606340856 Active 2022 ANGEL lowery PA - [facility] 3 14:39:55 Anxiety 98163939 Active 2022 ANGEL lowery PA - [facility] 3 14:40:02 Asthma 146135012 Active 2022 [facility] - [facility] [...] Name and Address Organization Details Recorded Time 374441 aspirin medicatio n gi bleed Not available Not available 04/06/2022 1191 RxNorm ANGEL MARYAN null, PA - [facility] 14:36:43 855040 apple extract food anaphylax is Not available Not available 04/06/2022 17893 65 RxNorm ANGEL MARYAN null, PA - [...] MOUTH ONCE A DAY DIRECTION S IN [place] active Not Available Not Available No t [...] % eye drops PONGA CHARLES GOTA EN GUILEHRME AFECTADO CADA CUATRO HORAS POR 7 MOTT [...] Updated DateTime 3 160.02 cm 27.5 kg/m2 85213.8 2 g 5 18 /min 98 % [...] Updated DateTime 3 160.02 cm 27.6 kg/m2 59237.4 1 g 99 % 99 % 65 /min 16 /min 98.1 [degF] 129 mm[Hg] 73 mm[Hg] ANGEL MARYAN PA - [facility] 3 14:42:37 Social History Question Answer Notes LastModified by Organizat ion Details LastModified Time Tobacco Smoking Status Never Smoker KERLINE lowery PA - [facility] 08/12/2022 15:38:01 What Is Your Level Of Alcohol Consumption? None [email or web address] Information not available 08/12/2022 Do You Use Any Illicit Or Recreational Drugs? No [email or web address] Information not available 08/12/2022 Have You Recently Traveled Abroad? No [email or web address] Information not available 08/12/2022 Do You Or Have You Ever Used Any Other Forms Of Tobacco Or Nicotine? No [email or web address] Information not available 08/12/2022 Sex: Unknown Functional [...] SNOMED-CT Code Diagnosis ICD10 Code Diagnosis Note [id number] [address] [place] [address] 03/14/2018 16:16:14 03/14/2018 16:59:15 [id number] Carmen Preciado MD [address] [place] [address] 04/06/2022 13:41:28 04/06/2022 15:30:14 Pruritic disorder 484328471 L29.9 You will need to follow up with your PCP or a specialist such as an Camouflage Assembler for this ongoing symptom [id number] [facility] [address] [address] [place] [address] 08/12/2022 13:52:50 08/12/2022 16:17:02 Allergic conjunctivitis 682676994 H10.13 Blood pressure was elevated - try and monitor. Avoid Decongesta nts. Health Concerns Section Related Observation LastModified by Organization Detai ls LastModified Time None Recorded Concern Status LastModified by Organization Details LastModified Time None Recorded Advance Directives Directive None Recorded Payers Encounter Date Sequence Insurance Name Policy Number Policy Caraballo Covered Member ID Caraballo Member ID Guarantor Name 03/14/2018 1 [facility] (MEDICAID HMO) DAVID Eldridge [id number] Nila Banks 04/06/2022 1 [facility] (MEDICAID HMO) DAVID Eldridge [id number] Nila Banks 08/12/2022 1 [facility] (MEDICAID HMO) DAVID Eldridge [id number] Nila Banks Notes Date Note Type Note Provider Name and Address Organization Details Recorded Time 3 text/html Rash / Skin LesionReported bypatient.Quality:itchy Context:No new products, detergents, creams, soaps, TRuied antihistamines and one ciourse steroiid 2 weeks ago. has been to both PCP and UCNotes:No rash present.Feels very itchy Carmen Preciado MD [address] [place], [address], [place] - [facility] 04/06/2022 16:09:05 3 [...] irritating. ADRYAN MARTINEZ [address] [place], [address], [place] - [facility] 08/12/2022 16:20:55 OBGyn Episode No OBEpisode recorded.
--- OUTSIDE RECORDS SUMMARY | 2024-06-18 08:18 | XMS_ITS | Encounter Summary ---
Author Organization [facility] Address [address] [place] [address] Care Team Providers Care Social Media Content Manager Name Role Phone Daphne Almanza MD Primary Care Provider [phone] Daphne Almanza MD Unavailable [phone] Encounter Details Date Type Department Care Team Description 09/05/2022 Petroleum Terminal Plant Operator Report Medical Records [address] [place] [address] Victor Hugo Mckeon PA Social History Tobacco [...] on filedocumented in this encounter Care Teams Social Media Content Manager Relationship Specialty Start Date End Date Daphne Almanza MD [address] [place] [address] PCP - General Internal Medicine 07/31/15 Daphne Almanza MD [address] [place] [address] 07/29/15 documented as of this encounter
--- OUTSIDE RECORDS SUMMARY | 2024-06-18 08:18 | XMS_ITS | Encounter Summary ---
Author Organization [facility] Address [address] [facility] [place] [place] [address] Care Team Providers Care Screedman Name Role Phone Daphne Almanza MD Primary Care Provider [phone] Daphne Almanza MD Unavailable [phone] Encounter Details Date Type Department Care Team Description 10/13/2020 Visitor Services Coordinator Report Medical Records [address] [place] [address] Jami Padilla MD Social History Tobacco Use [...] on filedocumented in this encounter Care Teams Screedman Relationship Specialty Start Date End Date Daphne Almanza MD [address] [place] [address] [phone] PCP - General Internal Medicine 07/31/15 Daphne Almanza MD [address] [place] [address] 07/29/15 documented as of this encounter
--- OUTSIDE RECORDS SUMMARY | 2024-06-18 08:18 | XMS_ITS | Encounter Summary ---
Author Organization [facility] Address [address] [place] [address] Care Team Providers Care Supervisor Pile Driving Name Role Phone Daphne Almanza MD Primary Care Provider [phone] Daphne Almanza MD Unavailable [phone] Reason for Visit * Reason Onset Date Comments Faxed Order 09/20/2022 [facility] Semi[facility] Encounter Details Date Type Department Care Team Description 09/20/2022 Telephone Adult Medicine [facility] [address] [place] [address] [phone] Daphne Almanza MD [address] [place] [address] [phone] Faxed Order ([facility] Semi-annual Report) Social History Tobacco Use Types Packs/Day Years [...] suspected to have Coronavirus/COVID-19? No / Unsure 09/09/2022 10:07 AM EDT documented as of this encounter Plan of Treatment Not on file documented as of this encounter Visit Diagnoses Not on filedocumented in this encounter Care Teams Supervisor Pile Driving Relationship Specialty Start Date End Date Daphne Almanza MD [address] [place] [address] PCP - General Internal Medicine 07/31/15 Daphne Almanza MD [address] [place] [address] 07/29/15 documented as of this encounter
--- OUTSIDE RECORDS SUMMARY | 2024-06-18 08:18 | XMS_ITS | Encounter Summary ---
Author Organization [facility] Address [address] [place] [address] Care Team Providers Care Sales Financial Analyst Name Role Phone Daphne Almanza MD Primary Care Provider [phone] Daphne Almanza MD Unavailable [phone] Encounter Details Date Type Department Care Team Description 05/31/2022 [facility] [address] [place] [address] [address] [place] [phone] [facility] Social History Tobacco Use Types Packs/Day Years [...] on filedocumented in this encounter Care Teams Sales Financial Analyst Relationship Specialty Start Date End Date Daphne Almanza MD [address] [place] [address] PCP - General Internal Medicine 07/31/15 Daphne Almanza MD [address] [place] [address] 07/29/15 documented as of this encounter
--- OUTSIDE RECORDS SUMMARY | 2024-06-18 08:19 | XMS_ITS | Encounter Summary ---
Author Organization [facility] Address [address] [place] [address] Care Team Providers Care Head Orthopedic Team Physician Name Role Phone Daphne Almanza MD Primary Care Provider [phone] Reason for Visit * Reason Onset Date Comments Provider Call Back 05/27/2024 Encounter Details Date Type Department Care Team (Late st Contact Info) Description 05/27/2024 Telephone Gastroenterology - [place] [address] [place] [address] Glen Nino PA [address] [place], [place] [phone] Provider Call Back Social History Tobacco Use [...] your loved ones. For example, child care attendant school or elderly care for an older adult? [...] as of this encounter Progress Notes * Sharmila Young - 05/27/2024 12:35 PM EST Patient's daughter calling states Zofran and Imodium are not working and patient is now having diarrhea and stomach pain. Patient would like to know what her next steps are. Patient was told she could have and EGD done, can patient move forward with scheduling this? Please advise. documented in this encounter Plan of Treatment Upcoming Encounters Date Type Department Care Team (Late st Contact Info) Description 07/09/2024 2:00 PM EDT Office Visit Urogynecology - [address] [phone] Kym Christine MD [address] [place] [address] 07/18/2024 3:00 PM EDT Office Visit Adult Medicine [facility] - [address] [phone] Daphne Almanza MD [address] [place] [address] documented as of this encounter Visit Diagnoses Not on filedocumented in this encounter Additional Health Concerns Assessment Noted Time PHQ-9 Depression Total Score: 1 04/15/19 25 2:51 PM EST documented as of this encounter Care Teams Head Orthopedic Team Physician Relationship Specialty Start Date End Date Daphne Almanza MD [address] [place] [address] PCP - General Internal Medicine 11/30/13 documented as of this encounter
--- OUTSIDE RECORDS SUMMARY | 2024-06-18 08:19 | XMS_ITS | Encounter Summary ---
Author Organization [facility] Address [address] [place] [address] Care Team Providers Care Estimating Manager Name Role Phone Daphne Almanza MD Primary Care Provider [phone] Encounter Details Date Type Department Care Team (Late st Contact Info) Description 01/01/2024 2:30 PM EDT Hospital Encounter TH HISTORIC ENCOUNTERS [facility] ONLY Daphne Almanza MD [address] [place] [address] Social History Tobacco Use Types Packs/Day Years [...] care for your loved ones. For example, early childhood special educator or elderly care for an older [...] 07/09/2024 2:00 PM EDT Office Visit Urogynecology [address] [phone] Kym Christine MD [address] [place] [address] 07/18/2024 3:00 PM EDT Office Visit Adult Medicine [facility] [address] [place] [address] Daphne Almanza MD [address] [place] [address] documented as of this encounter Visit Diagnoses Not on filedocumented in this encounter Care Teams Estimating Manager Relationship Specialty Start Date End Date Daphne Almanza MD [address] [place] [address] PCP - General Internal Medicine 11/30/13 documented as of this encounter
--- OUTSIDE RECORDS SUMMARY | 2024-06-18 08:19 | XMS_ITS | Encounter Summary ---
Author Organization [facility] Address [address] [place] [address] Care Team Providers Care Bench Loom Weaver Name Role Phone Daphne Almanza MD Primary Care Provider [phone] Reason for Referral * Imaging (Routine) - Closed Specialty Diagnoses / Procedures Referred By Contac t Referred To Contact Radiology Diagnoses Breast pain Procedures US Breast Limited bilat Mavis Osborn PA [address] [place] [address] Phone: tel: fax: [facility] Referral ID Status Reason Start Date Expiration Date Visits Re quested Visits Authorized [id number] Closed 05/07/2024 05/07/2025 1 1 Reason for Visit * Imaging (Routine) - Closed Specialty Diagnoses / Procedures Referred By Contac t Referred To Contact Radiology Diagnoses Breast pain Procedures US Breast Limited bilat Mavis Osborn PA [address] [place] [address] Phone: tel: fax: [facility] Referral ID Status Reason Start Date Expiration Date Visits Re quested Visits Authorized [id number] Closed 05/07/2024 05/07/2025 1 1 Encounter Details Date Type Department Care Team (Latest Contact Info) Description 05/20/2024 9:54 AM EST - 05/20/2024 11:59 PM EST Hospital Encounter Radiology Department - [address] [phone] Breast pain Discharge Disposition: Home or Self Care [...] for your loved ones. For example, childcare center director or elderly care for an older [...] 8 hr tablet TOME CHARLES TABLETA DOS SHANTELL AL AYAZ 06/16/2023 albuterol HFA (ProAir HFA) 90 mcg/actuation inhaler Take 2 Puffs by mouth every 4 hours as needed for Cough or Wheezing. 2 Puffs every 4 hours as needed 02/06/2023 aluminum-magnesi um hydroxide-simeth icone (MAALOX) 200-200-20 mg/5 mL suspension Take 30 mL by mouth 4 (four) times a day (before meals and nightly). 769 mL 11 05/06/2024 azelastine (ASTELIN) 137 mcg (0.1 %) nasal spray INSTILL 2 SPRAYS INTO EACH NOSTRIL TWICE A DAY DIRECTED 30 mL 5 02/28/2024 busPIRone (BUSPAR) 30 mg tablet TOME CHARLES TABLETA LUNA AL D A 11/19/2022 eszopiclone (LUNESTA) 2 [...] (two) times a day. 30 g 04/12/2024 loperamide (Imodium A-D) 2 mg tablet Take 1 tablet (2 mg total) by mouth 4 (four) times a day if needed for diarrhea. 60 tablet 05/10/2024 LORazepam (ATIVAN) 0.5 mg tablet JENNYFER LOONEY 12/28/2022 ondansetron (ZOFRAN) 4 mg tablet Take 1 tablet (4 mg total) by mouth 3 (three) times a day. 50 tablet 05/10/2024 oxyCODONE (OXY-IR) 5 mg immediate release capsule TAKE 1 CAPSULE BY MOUTH EVERY 8 HOURS NEEDED FOR PAIN FOR 3 DAYS 05/01/2024 pantoprazole (PROTONIX) 40 mg EC tablet Take 1 tablet (40 mg total) by mouth 1 (one) time each day. Take in am on empty stomach wait 30 mins and then eat to activate the medication 30 each 04/12/2024 phenyleph-pramox in-glycr-w.pet (Preparation H Maximum Strength) 0.25-1 % cream Insert 0.0385 each into the rectum 2 (two) times a day if needed (rectal irritation). 30 g 05/06/2024 risperiDONE (RisperDAL) 2 mg tablet JENNYFER LOONEY 07/22/2015 venlafaxine XR (EFFEXOR-XR) 150 mg 24 hr capsule 150 mg. 1 Tab daily 07/22/2015 documented as of this encounter Discharge Disposition Disposition Code Departure Means Destination Home or Self Care documented in this encounter Plan of Treatment Upcoming Encounters Date Type Department Care Team (Late st Contact Info) Description 07/09/2024 2:00 PM EDT Office Visit Urogynecology [address] [phone] Kym Christine MD [address] [facility] [address] [place] [address] 07/18/2024 3:00 PM EDT Office Visit Adult Medicine [facility] [address] [place] [address] Daphne Almanza MD [address] [place] [address] documented as of this encounter Procedures Procedure Name Priority Date/Time Associated Diagnosis Comments US BREAST LIMITED BILAT Routine 05/20/2024 10:18 AM EST Breast pain documented in this encounter Results * US Breast Limited bilat (05/20/2024 10:18 AM EST) Anatomical Region Laterality Modality Breast Bilateral Ultrasound 05/20/2024 10:3 6 AM EST Impressions 05/20/2024 10:43 AM EST No mammographic or sonographic correlate for bilateral breast pain. ??Further management of symptoms should be clinically based. No mammographic evidence of malignancy in either breast. BREAST DENSITY: B - There are scattered areas of fibroglandular density. BI-RADS CATEGORY: 2 - BENIGN RECOMMENDATION: Clinical management of bilateral breasts is recommended. Screening bilateral mammogram is recommended in 1 year. MAMMO LOCATION: [facility], [address] [place] [address], [id number], . -------- FINAL REPORT -------- Dictated By: Deja Staley Dictated Date: 05/20/2024 10:36 ET Assigned Physician: Deja Staley Reviewed and Electronically Signed By: Deja Staley Signed Date: 05/20/2024 10:43 ET Workstation ID: [id number] Transcribed By: Self Edit Transcribed Date: 05/20/2024 10:36 ET Narrative 05/20/2024 10:43 AM EST EXAM: MG MAMMO DIGITAL DIAGNOSTIC W MICHEL BILAT, US BREAST LIMITED BILAT HISTORY: Bilateral breast pain. COMPARISON: Mammography as recent as 05/26/2023 and as far back as 01/15/2016 TECHNIQUE: Bilateral mediolateral oblique and craniocaudal views ??were obtained digitally with 3-D mammogram (digital breast tomosynthesis). Computer-aided detection was utilized in evaluation of this exam (CAD). FINDINGS: No new suspicious mass, architectural distortion, or suspicious calcifications. Patient delineated breast pain in the bilateral retroareolar regions. ??Sonography was subsequently performed in the retroareolar breasts. ??No solid or cystic lesion identified. ??Few prominent retroareolar ducts. Procedure Note Deja Staley MD - 05/20/2024 EXAM: MG MAMMO DIGITAL DIAGNOSTIC W MICHEL BILAT, US BREAST LIMITED BILAT HISTORY: Bilateral breast pain. COMPARISON: Mammography as recent as 05/26/2023 and as far back as1 TECHNIQUE: Bilateral mediolateral oblique and craniocaudal views wereobtained digitally with 3-D mammogram (digital breast tomosynthesis).Computer-aided detection was utilized in evaluation of this exam (CAD). FINDINGS: No new suspicious mass, architectural distortion, or suspiciouscalcifications. Patient delineated breast pain in the bilateral retroareolar regions.Sonography was subsequently performed in the retroareolar breasts. Nosolid or cystic lesion identified. Few prominent retroareolar ducts. IMPRESSION: No mammographic or sonographic correlate for bilateral breast pain.Further management of symptoms should be clinically based. No mammographic evidence of malignancy in either breast. BREAST DENSITY: B - There are scattered areas of fibroglandular density. BI-RADS CATEGORY: 2 - BENIGN RECOMMENDATION: Clinical management of bilateral breasts is recommended.Screening bilateral mammogram is recommended in 1 year. MAMMO LOCATION: [facility], [address] [place] [address], [address], . -------- FINAL REPORT -------- Dictated By: Deja Staley Dictated Date: 05/20/2024 10:36 ET Assigned Physician: Deja Staley Reviewed and Electronically Signed By: Deja Staley Signed Date: 05/20/2024 10:43 ET Workstation ID: [id number] Transcribed By: Self Edit Transcribed Date: 05/20/2024 10:36 ET us Mavis CORNELIUS IMG US PROCEDURES Final Resul t documented in this encounter Visit Diagnoses Diagnosis Breast pain Mastodynia documented in this encounter Additional Health Concerns Assessment Noted Time PHQ-9 Depression Total Score: 1 04/15/19 25 2:51 PM EST documented as of this encounter Care Teams Bench Loom Weaver Relationship Specialty Start Date End Date Daphne Almanza MD [address] [place] [address] PCP - General Internal Medicine 11/30/13 documented as of this encounter
--- OUTSIDE RECORDS SUMMARY | 2024-06-18 08:19 | XMS_ITS | Encounter Summary ---
Author Organization [facility] Address [address] [place] [address] Care Team Providers Care Laborer Driver Name Role Phone Daphne Almanza MD Primary Care Provider [phone] Reason for Visit * Imaging (Routine) - Closed Specialty Diagnoses / Procedures Referred By Radha olsen Referred To Contact Radiology Diagnoses Pain of both breasts Procedures MG Mammo Digital Diagnostic w Zbigniew bilat MG Mammo Digital Diagnostic bilat Mavis Osborn PA [address] [place] [address] Phone: tel: fax: [address] Phone: tel: Referral ID Status Reason Start Date Expiration Date Visits Re quested Visits Authorized [id number] Closed 05/07/2024 05/07/2025 1 1 Encounter Details Date Type Department Care Team (Latest Contact Info) Description 05/20/2024 9:54 AM EST - 05/20/2024 11:59 PM EST Hospital Encounter Radiology Department - [address] [phone] Pain of both breasts Discharge Disposition: Home or Self Care Social [...] for your loved ones. For example, child protective investigator or elderly care for an older adult? [...] times a day. 30 g 11 04/12/2024 loperamide (Imodium A-D) 2 mg tablet Take 1 tablet (2 mg total) by mouth 4 (four) times a day if needed for diarrhea. 60 tablet 11 05/10/2024 LORazepam (ATIVAN) 0.5 mg tablet JENNYFER LOONEY 12/28/2022 ondansetron (ZOFRAN) 4 mg tablet Take 1 tablet (4 mg total) by mouth 3 (three) times a day. 50 tablet 6 05/10/2024 oxyCODONE (OXY-IR) 5 mg immediate release [...] needed (rectal irritation). 30 g 11 05/06/2024 risperiDONE (RisperDAL) 2 mg tablet ELLEN CAMPOSJENNYFER GARRISON 07/22/2015 venlafaxine XR (EFFEXOR-XR) 150 mg 24 hr capsule 150 mg. 1 Tab daily 07/22/2015 documented as of this encounter Discharge Disposition Disposition Code Departure Means Destination Home or Self Care documented in this encounter Plan of Treatment Upcoming Encounters Date Type Department Care Team (Late st Contact Info) Description 07/09/2024 2:00 PM EDT Office Visit Urogynecology [address] [phone] Kym Christine MD [address] [place] [address] 07/18/2024 3:00 PM EDT Office Visit Adult Medicine [address] [phone] Daphne Almanza MD [address] [place] [address] documented as of this encounter Procedures Procedure Name Priority Date/Time Associated Diagnosis Comments MG MAMMO DIGITAL DIAGNOSTIC W ZBIGNIEW BILAT Routine 05/20/2024 10:04 AM EST Pain of both breasts documented in this encounter Results * MG Mammo Digital Diagnostic w Zbigniew bilat (05/20/2024 10:04 AM EST) Anatomical Region Laterality Modality Breast Bilateral Mammography 05/20/2024 10:3 6 AM EST Impressions 05/20/2024 [...] is recommended in 1 year. MAMMO LOCATION: [facility], [address] [place] [address], [address], . -------- FINAL REPORT -------- Dictated By: Deja Staley Dictated Date: 05/20/2024 10:36 ET Assigned Physician: Deja Staley Reviewed and Electronically Signed By: Deja Staley Signed Date: 05/20/2024 10:43 ET Workstation ID: [id number] Transcribed By: Self Edit Transcribed Date: 05/20/2024 10:36 ET Narrative 05/20/2024 10:43 AM EST EXAM: MG MAMMO DIGITAL DIAGNOSTIC W ZBIGNIEW BILAT, US BREAST LIMITED BILAT HISTORY: Bilateral [...] 05/20/2024 EXAM: MG MAMMO DIGITAL DIAGNOSTIC W ZBIGNIEW BILAT, US BREAST LIMITED BILAT HISTORY: Bilateral [...] is recommended in 1 year. MAMMO LOCATION: [facility], [address] [place] [address], [address], . -------- FINAL REPORT -------- Dictated By: Deja Staley Dictated Date: 05/20/2024 10:36 ET Assigned Physician: Deja Staley Reviewed and Electronically Signed By: Deja Staley Signed Date: 05/20/2024 10:43 ET Workstation ID: [id number] Transcribed By: Self Edit Transcribed Date: 05/20/2024 10:36 ET us Mavis CORNELIUS IMG BI PROCEDURES Final Resul t documented in this encounter Visit Diagnoses Diagnosis Pain of both breasts documented in this encounter Additional Health Concerns Assessment Noted Time PHQ-9 Depression Total Score: 1 04/15/19 25 2:51 PM EST documented as of this encounter Care Teams Laborer Driver Relationship Specialty Start Date End Date Daphne Almanza MD [address] [place] [id number] PCP - General Internal Medicine 11/30/13 documented as of this encounter
--- OUTSIDE RECORDS SUMMARY | 2024-06-18 08:19 | XMS_ITS | Encounter Summary ---
Author Organization [facility] Address [address] [place] [address] Care Team Providers Care Bedspring Assembler Name Role Phone Daphne Almanza MD Primary Care Provider [phone] Reason for Visit * Reason Onset Date Comments Appointment 05/07/2024 Encounter Details Date Type Department Care Team (Late st Contact Info) Description 05/07/2024 Telephone Adult Medicine [address] [phone] Rhiannon Kumar [place] Appointment Social History Tobacco [...] for your loved ones. For example, child study team director or elderly care for an older [...] pt calls back please forward call to [phone] Lidia Pt was scheduled today for Hospital follow up needs clarification as to what this appt is for. Ptsaw obgyn for this issue. Appt not appropriate. documented in this encounter Plan of Treatment Upcoming Encounters Date Type Department Care Team (Late st Contact Info) Description 07/09/2024 2:00 PM EDT Office Visit Urogynecology [address] [phone] Kym Christine MD [address] [place] [address] 07/18/2024 3:00 PM EDT Office Visit Adult Medicine [place] - [address] [phone] Daphne Almanza MD [address] [place] [address] documented as of this encounter Visit Diagnoses Not on filedocumented in this encounter Additional Health Concerns Assessment Noted Time PHQ-9 Depression Total Score: 1 04/15/19 25 2:51 PM EST documented as of this encounter Care Teams Bedspring Assembler Relationship Specialty Start Date End Date Daphne Almanza MD [address] [place] [address] PCP - General Internal Medicine 11/30/13 documented as of this encounter
--- OUTSIDE RECORDS SUMMARY | 2024-06-18 08:19 | XMS_ITS | Clinical Summary ---
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 48 mL 5 4 Active azelastine (ASTELIN) 137 mcg (0.1 %) nasal spray INSTILL 2 SPRAYS INTO EACH NOSTRIL TWICE A DAY DIRECTED 30 mL 5 4 Active acetaminophen (TYLENOL 8 HOUR) 650 mg 8 hr tablet TOME CHARLES TABLETA DOS VECES AL AYAZ 4 Active busPIRone (BUSPAR) 30 mg tablet TOME CHARLES TABLETA DOS VECES AL D A 3 Active eszopiclone (LUNESTA) 2 mg tablet JENNYFER LOONEY GARRISON 3 Active famotidine (PEPCID) 20 mg tablet Take 1 Tablet by mouth 2 times daily as needed for Heartburn. 3 Active fexofenadine (LUANA) 180 mg tablet Take 1 tablet by mouth daily. 1 Active gabapentin (NEURONTIN) 100 mg capsule PLEASE SEE ATTACHED FOR DETAILED DIRECTIONS 2 Active LORazepam (ATIVAN) 0.5 mg tablet JENNYFER LOONEY 3 Active risperiDONE (RisperDAL) 2 mg tablet JENNYFER LOONEY 6 Active venlafaxine XR (EFFEXOR-XR) 150 mg 24 hr capsule 150 mg. 1 Tab daily 6 Active albuterol HFA (ProAir HFA) 90 mcg/actuation inhaler Take 2 Puffs by mouth every 4 hours as needed for Cough or Wheezing. 2 Puffs every 4 hours as needed 3 Active pantoprazole (PROTONIX) 40 mg EC tablet Take 1 tablet (40 mg total) by mouth 1 (one) time each day. Take in am on empty stomach wait 30 mins and then eat to activate the medication 30 each 5 Active hydrocortisone (Preparation H Hydrocortisone) 1 % topical cream Apply topically 2 (two) times a day. 30 g 5 04/12/19 26 Active oxyCODONE (OXY-IR) 5 mg immediate release capsule TAKE 1 CAPSULE BY MOUTH EVERY 8 HOURS NEEDED FOR PAIN FOR 3 DAYS 5 Active phenyleph-pramo sharda-glycr-w.pet (Preparation H Maximum Strength) 0.25-1 % cream Insert 0.0385 each into the rectum 2 (two) times a day if needed (rectal irritation). 30 g 5 Active aluminum-magnes ium hydroxide-simet hicone (MAALOX) 200-200-20 mg/5 mL suspension Take 30 mL by mouth 4 (four) times a day (before meals and nightly). 769 mL 5 Active loperamide (Imodium A-D) 2 mg tablet Take 1 tablet (2 mg total) by mouth 4 (four) times a day if needed for diarrhea. 60 tablet 5 Active ondansetron (ZOFRAN) 4 mg tablet Take 1 tablet (4 mg total) by mouth 3 (three) times a day. 50 tablet 6 5 Active amoxicillin-cla vulanate (AUGMENTIN) 875-125 mg per tablet Take 1 tablet by mouth 2 (two) times a day for 14 days. 28 each 5 05/20/19 25 Active Problems Problem Noted Date Diagnosed [...] 07/13/2021 Obstructive sleep apnea 05/24/2021 Overview (03/08/2024): [facility] Home sleep test 05/13/2021; weight [...] 05/09/2018 Panic attack 05/09/2018 Overview (03/08/2024): Dr. Kuamr at [facility] Right ovarian cyst 05/09/2018 Overview (03/08/2024): Last [...] 08/14/2015 Overview (03/08/2024): Dr. Kumar at [facility] Asthma 08/14/2015 GERD (gastroesophageal reflux disease) 6 Encounters Date Type Department Care Team Description 05/27/2024 Telephone Gastroenterology [facility] [address] [phone] Andrew Nino PA Provider Call Back 05/20/2024 9:54 AM EST - 05/20/2024 11:59 PM EST Hospital Encounter Radiology [facility] - [address] [phone] Breast pain Discharge Disposition: Home or Self Care 05/20/2024 9:54 AM EST - 05/20/2024 11:59 PM EST Hospital Encounter Radiology Department - [address] [phone] Pain of both breasts Discharge Disposition: Home or Self Care 05/09/2024 Telephone Gastroenterology [facility] [address] [phone] Andrew Nino PA Medication Problem 05/07/2024 10:15 AM EST Office Visit Adult Medicine [address] [phone] Mavis Osborn PA Pain of both breasts (Primary Dx) 05/07/2024 Telephone Adult Medicine [address] [phone] Rhiannon Kumar [place] Appointment 05/06/2024 9:20 AM EST Office Visit Gastroenterology [facility] [address] [facility] [address] [place] [phone] Andrew Nino PA Dyspepsia (Primary Dx); Bloating; Enteritis; Rectal irritation; Vascular abnormality [facility] [address] [phone] Andrew Nino PA [facility] 175 [facility] [address] [phone] Andrew Nino PA 04/29/2024 Telephone Gastroenterology [facility] 175 [facility] [address] [phone] Andrew Nino PA Medication Problem 04/26/2024 4:16 PM EST - 04/26/2024 11:59 PM EST Hospital Encounter [facility] CT Scan [address] [place] [phone] Diverticulosis; H/O diverticulitis of colon; LLQ pain; Elevated liver enzymes; Gastroesophageal reflux disease without esophagitis; Rectal irritation Discharge Disposition: Home or Self Care 04/25/2024 10:45 AM EST Office Visit Obstetrics and Gynecology [address] [phone] Maria Victoria Ellington MD Pelvic pressure in female (Primary Dx); Vaginal pain 04/18/2024 7:25 AM EST - 04/18/2024 10:[address] [facility] Emergency [address] [place] [phone] Ralph Menard MD Vaginal pain (Primary Dx); Rectal pain Discharge Disposition: Home or Self Care 04/15/2024 3:00 PM EST Office Visit Adult Medicine [address] [phone] Stephanie Barragan PA Pelvic pressure in female (Primary Dx); Decreased GFR; Elevated LFTs; Diverticulitis; Rectal pain 04/12/2024 1:20 PM EST Office Visit Gastroenterology [facility] 175 [facility] 175 [facility] [address] [place] [phone] Andrew Nino PA Diverticulosis (Primary Dx); H/O diverticulitis of colon; LLQ pain; Elevated liver enzymes; Gastroesophageal reflux disease without esophagitis; Rectal irritation 04/11/2024 Telephone Adult [address] [phone] Daphne Almanza MD er follow up ([facility] /04/10/24) 04/08/2024 Telephone Obstetrics and Gynecology [address] [phone] Maria Victoria Ellington MD er follow up 04/02/2024 3:30 PM EST Office Visit Adult [address] [phone] Mavis Osborn PA Vaginal pain (Primary Dx); Elevated LFTs 04/02/2024 Telephone Obstetrics and [address] [phone] Maria Victoria Ellington MD 03/24/2024 12:06 AM EST - 03/24/2024 3:[address] [facility] Emergency [address] [place] [phone] Jaxson Mahan MD Diverticulitis (Primary Dx) Discharge Disposition: Home or Self Care from Last 3 Months Immunizations Name Administration Dates Next Due Influenza Quadravalent, MDCK , 0.5ml, preservative free (Flucelvax) 6mo and older 02/06/2023,12/21/2021,03/04/2021,02/10 Influenza trivalent, 0.5mL, preservative free (Fluarix; FluLaval; Fluzone) ages 6mo and older (Afluria) 3 years and older 12/08/2023,03/10/2019,02/19/2013,01/12 Influenza trivalent, with pr eservative (Fluzone; Afluria) 6mo and older 05/11/2016,03/04/2015 [employer] SARS-CoV-2 COVID -19, vector-nr, [id number], preservative free [...] PROCEDURE: HISTORICAL TUBAL LIGATION ESOPHAGOGASTRODUODENOSCOPY 08/20/2015 PROCEDURE: [place] ESOPHAGOGASTRODUODENOSCOPY TRANSORAL DIAGNOSTIC; COMMENT: Dr. De La Rosa - evgeny H/H o/w normal. COLONOSCOPY 04/20/2012 PROCEDURE: HISTORICAL COLONOSCOPY; COMMENT: [facility] - normal CARPAL TUNNEL RELEASE Left PROCEDURE: HISTORICAL CARPAL TUNNEL REL ESOPHAGOGASTRODUODENOSCOPY PROCEDURE: IL EGD TRANSORAL BIOPSY SINGLE/MULTIPLE; COMMENT: 08/2019 with [...] care for your loved ones. For example, school childcare attendant or elderly care for an older adult? [...] 2:00 PM EDT Office Visit Urogynecology - [address] [phone] Kym Christine MD [address] [place] [address] 07/18/2024 3:00 PM EDT Office Visit Adult Medicine [facility] - [address] [phone] Daphne Almanza MD [address] [place], [place] Health Maintenance Due Date Last Done Comments [...] 05/09/2023 05/09/2018, 12/19/2006 COVID-19 Vaccine (3 - 2023- season) 2023 02/11/2021, 06/19/2020 Depression Screening 04/15/2025 04/15/2024, 04/05/19 Social Influencers of Health Screening 04/15/2025 04/15/2024 Breast Cancer Screening 05/20/2026 05/20/19, 05/26/2023, 05/20/2022, Additional history exists Colorectal Cancer Screening: Colonoscopy 07/06/2026 07/06/2021 DTaP,Tdap,and Td Vaccines (3 - Td or Tdap) 05/09/2028 05/09/2018, 07/26/2011 Cholesterol Screening (Lipid Panel) 04/12/2029 04/12/2024, 05/12/2022 MMR Vaccines Aged Out 07/26/2011 No longer [...] Routine 05/20/2024 10:18 AM EST Breast pain MG MAMMO DIGITAL DIAGNOSTIC W ZBIGNIEW BILAT Routine 05/20/2024 10:04 AM EST Pain of both breasts CT ANGIO ABDOMEN PELVIS WO AND/OR W CONTRAST Routine 05/17/2024 3:[address] ABDOMEN PELVIS W CONTRAST Routine 04/26/2024 [...] CULTURE URINE STAT 03/23/2024 7:27 PM EST HM DEPRESSION SCREENING Routine 04/05/2023 HM COLONOSCOPY Routine 07/06/2021 HEPATITIS C SCREENING Routine 06/11/2018 from Last 3 Months or Most Recently Relevant to Health Maintenance Results * US Breast Limited bilat (05/20/2024 [...] is recommended in 1 year. MAMMO LOCATION: [facility], [address] [place] [address], [phone], . -------- FINAL REPORT -------- Dictated By: Deja Staley Dictated Date: 05/20/2024 10:36 ET Assigned Physician: Deja Staley Reviewed and Electronically Signed By: Deja Staley Signed Date: 05/20/2024 10:43 ET Workstation ID: [id number] Transcribed By: Self Edit Transcribed Date: 05/20/2024 [...] is recommended in 1 year. MAMMO LOCATION: [facility], [address] [place] [address], [phone], . -------- FINAL REPORT -------- Dictated By: Deja Staley Dictated Date: 05/20/2024 10:36 ET Assigned Physician: Deja Staley Reviewed and Electronically Signed By: Deja Staley Signed Date: 05/20/2024 10:43 ET Workstation ID: [id number] Transcribed By: Self Edit Transcribed Date: 05/20/2024 10:36 ET us Mavis CORNELIUS IMG US PROCEDURES Final Resul t * MG Mammo Digital Diagnostic w Zbigniew [...] is recommended in 1 year. MAMMO LOCATION: [facility], [address] [place] [address], [phone], . -------- FINAL REPORT -------- Dictated By: Deja Staley Dictated Date: 05/20/2024 10:36 ET Assigned Physician: Deja Staley Reviewed and Electronically Signed By: Deja Staley Signed Date: 05/20/2024 10:43 ET Workstation ID: [id number] Transcribed By: Self Edit Transcribed Date: 05/20/2024 [...] is recommended in 1 year. MAMMO LOCATION: [facility], [address] [place] [address], [phone], . -------- FINAL REPORT -------- Dictated By: Deja Staley Dictated Date: 05/20/2024 10:36 ET Assigned Physician: Deja Staley Reviewed and Electronically Signed By: Deja Staley Signed Date: 05/20/2024 10:43 ET Workstation ID: [id number] Transcribed By: Self Edit Transcribed Date: 05/20/2024 10:36 ET Mavis CORNELIUS IMG BI PROCEDURES Final Resul t * CT Angio Abdomen Pelvis wo and/or w Contrast (05/17/2024 3:39 PM EST) Anatomical Region Laterality Modality Body Computed Tomogra phy Historical Provider IMJack CT PROCEDURES Final R esult * CT Abdomen Pelvis w Contrast (04/26/2024 [...] Signed Date: 04/26/2024 17:15 ET Workstation ID: [id number] Transcribed By: Self Edit Transcribed Date: 04/26/2024 [...] Signed Date: 04/26/2024 17:15 ET Workstation ID: [id number] Transcribed By: Self Edit Transcribed Date: 04/26/2024 17:11 ET Andrew CORNELIUS IM CT PROCEDURES Final Result * (ABNORMAL) Urinalysis with reflex microscopic and culture (04/18/2024 8:09 AM EST) Only the most recent of3 resultswithin the time period is included. Specific [place] Urine 1.017 1.003 - 1.030 LAB URINALYSIS - AUTOMATED METHOD 04/18/2024 8:35 AM [facility] pH, Urine 6.5 5.0 - 8.0 pH LAB URINALYSIS - AUTOMATED METHOD 04/18/2024 8:35 AM [facility] Leukocytes, Urine Trace(A) Negative LAB URINALYSIS - AUTOMATED METHOD 04/18/2024 8:35 AM [facility] Nitrite, Urine Negative Negative LAB URINALYSIS - AUTOMATED METHOD 04/18/2024 8:35 AM [facility] Protein, Urine Negative <=Trace mg/dL LAB URINALYSIS - AUTOMATED METHOD 04/18/2024 8:35 AM [facility] Glucose, Urine Negative Negative mg/dL LAB URINALYSIS - AUTOMATED METHOD 04/18/2024 8:35 AM [facility] Ketones, Urine Negative Negative mg/dL LAB URINALYSIS - AUTOMATED METHOD 04/18/2024 8:35 AM [facility] Urobilinogen, Urine 0.2 0.2 - 1.0 mg/dL LAB URINALYSIS - AUTOMATED METHOD 04/18/2024 8:35 AM [facility] Bilirubin, Urine Negative Negative LAB URINALYSIS - AUTOMATED METHOD 04/18/2024 8:35 AM [facility] Blood, Urine Negative Negative LAB URINALYSIS - AUTOMATED METHOD 04/18/2024 8:35 AM [facility] RBC, Urine 4.3(H) 0 - 4 /HPF LAB URINALYSIS - AUTOMATED METHOD 04/18/2024 8:35 AM [facility] WBC, Urine 2.3 0 - 4 /HPF LAB URINALYSIS - AUTOMATED METHOD 04/18/2024 8:35 AM [facility] Squamous Epithelial, Urine 17 0 - 60 /LPF LAB URINALYSIS - AUTOMATED METHOD 04/18/2024 8:35 AM [facility] Bacteria, Urine Negative Negative /HPF LAB URINALYSIS - AUTOMATED METHOD 04/18/2024 8:35 AM [facility] Hyaline Casts, Urine 0.0 0 - 3 /LPF LAB URINALYSIS - AUTOMATED METHOD 04/18/2024 8:35 AM [facility] Urine Urine specimen obtained by clean catch procedure / Unknown Non-blood Collection / Unknown 04/18/2024 8:09 AM EST 04/18/2024 8:28 AM EST us Marleny CORNELIUS LAB URINE ORDERABLES Final Re sult [facility] [address] [place] [address], [place] [phone] * Forrest urine culture tube (04/18/2024 8:09 AM EST) Only the most recent of3 resultswithin the time period is included. Extra Tube Hold for add-ons. 04/18/2024 10:01 AM EST [facility] Comment:Auto resulted. Urine Urine specimen obtained by clean catch procedure / Unknown Non-blood Collection / Unknown 04/18/2024 8:09 AM EST 04/18/2024 8:28 AM EST us Marleny CORNELIUS LAB URINE ORDERABLES Final Re sult Performing Organization Address [facility]/ZIP Co de Phone Number [facility] [address] [place] [address], * Culture urine (04/18/2024 8:09 AM EST) Only the most recent of2 resultswithin the time period is included. Pathologist [facility] Culture, Urine No growth 04/19/2024 9:01 AM EST [facility] Urine Urine specimen obtained by clean catch procedure / Unknown Non-blood Collection / Unknown 04/18/2024 8:09 AM EST 04/18/2024 8:35 AM EST us Marleny CORNELIUS LAB MICROBIOLOGY - GENERAL OR DERABLES Final Result [facility] [address] [place] [address], [place] [phone] * Trichomonas vaginalis antigen (04/18/2024 8:00 AM EST) Pathologist [facility] Trichomonas vaginalis Negative Negative 04/18/2024 10:12 AM EST [facility] Swab Vaginal structure / Unknown Non-blood Collection / Unknown 04/18/2024 8:00 AM EST 04/18/2024 8:27 AM EST us Marleny CORNELIUS LAB MICROBIOLOGY - GENERAL OR DERABLES Final Result Performing Organization Address [facility]/ZIP Co de Phone Number [facility] [address] [place] [address], [place] [phone] * Chlamydia trachomatis and Neisseria gonorrhoeae molecular study (04/18/2024 8:00 AM EST) Neisseria gonorrhoeae PCR Negative Negative LAB MOLECULAR DIAGNOSTICS METHOD 04/18/2024 10:50 AM EST [facility] Chlamydia trachomatis PCR Negative Negative LAB MOLECULAR DIAGNOSTICS METHOD 04/18/2024 10:50 AM EST [facility] Swab Vaginal structure / Unknown Non-blood Collection / Unknown 04/18/2024 8:00 AM EST 04/18/2024 8:27 AM EST Marleny CORNELIUS LAB MICROBIOLOGY - GENERAL OR DERABLES Final Result Performing Organization Address [facility] de Phone Number [facility] [address] [place] [address], [place] [phone] * Wet prep, genital (04/18/2024 8:00 AM EST) Clue Cells, Wet Prep Negative Negative 04/18/2024 10:13 AM EST [facility] Yeast, Wet Prep Negative Negative 04/18/2024 10:13 AM EST [facility] Trichomonas, Wet Prep Indeterminate Negative 04/18/2024 10:13 AM EST [facility] Comment:Refer to Trichomonas antigen. Swab Vaginal structure / Unknown Non-blood Collection / Unknown 04/18/2024 8:00 AM EST 04/18/2024 8:27 AM EST us Marleny CORNELIUS LAB MICROBIOLOGY - GENERAL OR DERABLES Final Result [facility] [address] [place] [address], * (ABNORMAL) CBC auto differential (04/17/2024 9:48 PM EST) Only the most recent of3 resultswithin the time period is included. WBC 9.4 4.8 - 10.8 K/mcL LAB HEMETOLOGY METHOD 04/17/2024 10:28 PM [facility] RBC 4.30 3.80 - 4.80 M/mcL LAB HEMETOLOGY METHOD 04/17/2024 10:28 PM [facility] Hemoglobin 12.9 11.5 - 16.0 g/dL LAB HEMETOLOGY METHOD 04/17/2024 10:28 PM [facility] Hematocrit 39.4 35.0 - 47.0 % LAB HEMETOLOGY METHOD 04/17/2024 10:28 PM EST [facility] MCV 92.5 79.0 - 98.0 FL LAB HEMETOLOGY METHOD 04/17/2024 10:28 PM [facility] MCH 30.3 27.0 - 32.0 pcg LAB HEMETOLOGY METHOD 04/17/2024 10:28 PM [facility] MCHC 32.7 32.0 - 37.0 g/dL LAB HEMETOLOGY METHOD 04/17/2024 10:28 PM [facility] RDW 13.7 11.0 - 15.0 % LAB HEMETOLOGY METHOD 04/17/2024 10:28 PM [facility] Platelets 255 130 - 400 K/mcL LAB HEMETOLOGY METHOD 04/17/2024 10:28 PM [facility] MPV 10.9 7.0 - 11.0 FL LAB HEMETOLOGY METHOD 04/17/2024 10:28 PM EST [facility] NRBC 0.0 <1.0 % LAB HEMETOLOGY METHOD 04/17/2024 10:28 PM [facility] NRBC Absolute 0.00 <0.10 K/mcL LAB HEMETOLOGY METHOD 04/17/2024 10:28 PM [facility] Neutrophils Relative 73.0 % LAB HEMETOLOGY METHOD 04/17/2024 10:28 PM [facility] Lymphocytes Relative 17.2 % LAB HEMETOLOGY METHOD 04/17/2024 10:28 PM [facility] Monocytes Relative 7.1 % LAB HEMETOLOGY METHOD 04/17/2024 10:28 PM [facility] Eosinophils Relative 1.6 % LAB HEMETOLOGY METHOD 04/17/2024 10:28 PM [facility] Basophils Relative 0.7 % LAB HEMETOLOGY METHOD 04/17/2024 10:28 PM [facility] Immature Granulocytes Relative 0.4 % LAB HEMETOLOGY METHOD 04/17/2024 10:28 PM [facility] Neutrophils Absolute 6.83 1.50 - 7.00 K/mcL LAB HEMETOLOGY METHOD 04/17/2024 10:28 PM [facility] Lymphocytes Absolute 1.61 1.00 - 5.00 K/mcL LAB HEMETOLOGY METHOD 04/17/2024 10:28 PM [facility] Monocytes Absolute 0.66 0.20 - 1.00 K/mcL LAB HEMETOLOGY METHOD 04/17/2024 10:28 PM [facility] Eosinophils Absolute 0.15 0.00 - 0.50 K/mcL LAB HEMETOLOGY METHOD 04/17/2024 10:28 PM [facility] Basophils Absolute 0.07 0.00 - 0.20 K/mcL LAB HEMETOLOGY METHOD 04/17/2024 10:28 PM [facility] Immature Granulocytes Absolute 0.04(H) 0.00 - 0.03 K/mcL LAB HEMETOLOGY METHOD 04/17/2024 10:28 PM EST [facility] Blood Venous blood specimen / Unknown Venipuncture / Unknown 04/17/2024 9:48 PM EST 04/17/2024 10:17 PM EST Liban Santo LAB BLOOD ORDERABLES Final Resu lt Performing Organization Address [facility]/ZIP Co de Phone Number [facility] [address] [place] [address], [place] [phone] * Lipase (04/17/2024 9:48 PM EST) Only the most recent of2 resultswithin the time period is included. Lipase 54 13 - 75 unit/L LAB CHEMISTRY METHOD 04/17/2024 10:45 PM EST [facility] Blood Venous blood specimen / Unknown Venipuncture / Unknown 04/17/2024 9:48 PM EST 04/17/2024 10:17 PM EST Liban Santo DO [facility] BLOOD ORDERABLES Final Resu lt Performing Organization Address [facility] Co de Phone Number [facility] [address] [place] [address], [place] [phone] * (ABNORMAL) Comprehensive metabolic panel (04/17/2024 9:48 PM EST) Only the most recent of3 resultswithin the time period is included. Sodium 139 133 - 145 mmol/L LAB CHEMISTRY METHOD 04/17/2024 10:48 PM EST [facility] Potassium 4.8 3.5 - 5.5 mmol/L LAB CHEMISTRY METHOD 04/17/2024 10:48 PM EST [facility] Chloride 107 96 - 110 mmol/L LAB CHEMISTRY METHOD 04/17/2024 10:48 PM EST [facility] CO2 30 21 - 32 mmol/L LAB CHEMISTRY METHOD 04/17/2024 10:48 PM [facility] Anion Gap 2(L) 3 - 11 LAB CHEMISTRY METHOD 04/17/2024 10:48 PM [facility] Glucose 103(H) 70 - 100 mg/dL LAB CHEMISTRY METHOD 04/17/2024 10:48 PM [facility] BUN 17 5 - 25 mg/dL LAB CHEMISTRY METHOD 04/17/2024 10:48 PM [facility] Creatinine 0.97 0.50 - 1.10 mg/dL LAB CHEMISTRY METHOD 04/17/2024 10:48 PM [facility] eGFR 66 >=60 mL/min/1. 73m2 LAB CHEMISTRY METHOD 04/17/2024 10:48 PM [facility] Comment:Calculation based on the??Chronic Kidney Disease Epidemiology Collaboration (CKD-EPI) equation refit??without adjustment for race. BUN/Creatinine Ratio 17.5 LAB CHEMISTRY METHOD 04/17/2024 10:48 PM [facility] Calcium 9.6 8.5 - 10.5 mg/dL LAB CHEMISTRY METHOD 04/17/2024 10:48 PM [facility] AST (SGOT) 28 10 - 42 unit/L LAB CHEMISTRY METHOD 04/17/2024 10:48 PM [facility] ALT (SGPT) 40 10 - 60 unit/L LAB CHEMISTRY METHOD 04/17/2024 10:48 PM [facility] Alkaline Phosphatase 94 42 - 121 unit/L LAB CHEMISTRY METHOD 04/17/2024 10:48 PM [facility] Total Protein 7.9 6.0 - 8.0 g/dL LAB CHEMISTRY METHOD 04/17/2024 10:48 PM [facility] Albumin 4.0 3.2 - 5.0 g/dL LAB CHEMISTRY METHOD 04/17/2024 10:48 PM [facility] Total Bilirubin 0.3 0.0 - 1.4 mg/dL LAB CHEMISTRY METHOD 04/17/2024 10:48 PM EST [facility] Blood Venous blood specimen / Unknown Venipuncture / Unknown 04/17/2024 9:48 PM EST 04/17/2024 10:17 PM EST Liban Santo DO LAB BLOOD ORDERABLES Final Resu lt [facility] [address] [place] [address], [place] [phone] * Bilirubin duplicate procedure to order (04/12/2024 2:15 PM EST) Total Bilirubin 0.4 0.0 - 1.4 mg/dL LAB CHEMISTRY METHOD 04/12/2024 10:21 PM EST [facility] Bilirubin, Direct 0.1 0.0 - 0.3 mg/dL LAB CHEMISTRY METHOD 04/12/2024 10:21 PM EST [facility] Bilirubin, Indirect 0.3 0.0 - 1.1 mg/dL LAB CHEMISTRY METHOD 04/12/2024 10:21 PM EST [facility] Blood Venous blood specimen / Unknown Venipuncture / Unknown 04/12/2024 2:15 PM EST 04/12/2024 2:15 PM EST Mavis CORNELIUS LAB BLOOD ORDERABLES Final Re sult Performing Organization Address City/[facility]/ZIP Co de Phone Number [facility] [address] [place] [address], [place] [phone] * (ABNORMAL) Lipid panel with reflex to direct LDL (04/12/2024 2:15 PM EST) Cholesterol 210(H) 0 - 200 mg/dL LAB CHEMISTRY METHOD 04/12/2024 10:21 PM EST [facility] Triglycerides 153(H) 0 - 150 mg/dL LAB CHEMISTRY METHOD 04/12/2024 10:21 PM EST [facility] HDL 46 >=40 mg/dL LAB CHEMISTRY METHOD 04/12/2024 10:21 PM [facility] LDL Calculated 133(H) 0 - 100 mg/dL LAB CHEMISTRY METHOD 04/12/2024 10:21 PM [facility] VLDL Cholesterol Abdiel 30.6 mg/dL LAB CHEMISTRY METHOD 04/12/2024 10:21 PM EST [facility] Non HDL Chol. (LDL+VLDL) 164(H) <145 mg/dL LAB CHEMISTRY METHOD 04/12/2024 10:21 PM EST [facility] Chol/HDL Ratio 4.6(H) 0.0 - 4.4 LAB CHEMISTRY METHOD 04/12/2024 10:21 PM [facility] Blood Venous blood specimen / Unknown Venipuncture / Unknown 04/12/2024 2:15 PM EST 04/12/2024 2:15 PM EST us Andrew CORNELIUS LAB BLOOD ORDERABLES Final Resu lt [facility] [address] [place] [address], [place] [phone] * Iron (04/12/2024 2:15 PM EST) Iron 90 40 - 150 mcg/dL LAB CHEMISTRY METHOD 04/12/2024 10:21 PM EST [facility] Blood Venous blood specimen / Unknown Venipuncture / Unknown 04/12/2024 2:15 PM EST 04/12/2024 2:15 PM EST us Andrew CORNELIUS LAB BLOOD ORDERABLES Final Resu lt [facility] [address] [place] [address], [place] [phone] * Ferritin (04/12/2024 2:15 PM EST) Ferritin 93 8 - 252 ng/mL LAB CHEMISTRY METHOD 04/12/2024 10:21 PM EST [facility] Blood Venous blood specimen / Unknown Venipuncture / Unknown 04/12/2024 2:15 PM EST 04/12/2024 2:15 PM EST us Andrew CORNELIUS LAB BLOOD ORDERABLES Final Resu lt [facility] [address] [place] [address], [place] [phone] * US Abdomen Limited (03/24/2024 12:32 AM [...] Darien Santo MD on 03/24/2024 01:07:36 us Tinjack Lopez DO IMG US PROCEDURES Final R esult * Depression Screening (04/05/2023) Depression Screening Abstracted Historical Provider HEALTH MAINTENANCE Final Result * Colonoscopy (07/06/2021) Colonoscopy No Interpretation , Abstracted Anatomical Region Laterality Modality Other Historical Provider HEALTH MAINTENANCE Final Result * Hepatitis C Screening (06/11/2018) Hepatitis C Screening Abstracted Historical Provider HEALTH MAINTENANCE Final Result from Last 3 Months or Most Recently Relevant to Health Maintenance [place] [address] [place] [address] [place] [address] Care Teams Homemaking Rehabilitation Consultant Relationship Specialty Start Date End Date Daphne Almanza MD [address] [place] [phone] PCP - General Internal Medicine 11/30/13
--- OUTSIDE RECORDS SUMMARY | 2024-06-18 08:20 | XMS_ITS | Encounter Summary ---
Author Organization [facility] Address [address] [place] [address] Care Team Providers Care Electrical Machine Builder Name Role Phone Daphne Almanza MD Primary Care Provider [phone] Daphne Almanza MD Unavailable [phone] Reason for Visit * Reason Onset Date Comments medication problems 09/15/2017 Encounter Details Date Type Department Care Team Description 09/15/2017 Telephone Adult Medicine [facility] [address] [place] [address] Mavis Osborn PA-C [address] [place] [address] [phone] medication problems Social History Tobacco Use Types Packs/Day Years [...] Miscellaneous Notes * Telephone Encounter - Renetta Perez C.M.A. - 09/18/2017 2:19 PM EDT Left message for pt to call back Renetta BLACK [id number] * Telephone Encounter - Renetta Perez C.M.A. - 09/17/2017 11:55 AM EDT Left message for pt to call back Renetta BLACK [id number] * Telephone Encounter - Mavis Osborn PA-C - 09/15/2017 3:01 PM EDT I have sent updated RX to QD dosing given insurance issue; please advise patient. Mavis Osborn PA-C * Telephone Encounter - Linn Darling M.A. - 09/15/2017 2:57 PM EDT Please review and advise, insurance is not covering dosage you sent orginally * Telephone Encounter - Diamond Richey - 09/15/2017 12:02 PM EDT What is the name of the medication patient is having a problem with?: pantoprazole (PROTONIX) 40 MGtablet What is the problem?: insurance will only cover 30 tabs for 30 days Is the patient calling about the problem? NO If the patient is not the caller who is[facility] Is this a NEW medication?: NO How long has the patient been taking this medication? months Who prescribed this medication for the patient? Mavis Osborn Who is patients PCP?: Daphne Almanza Payor: [employer] FFS / Plan: [facility] [employer]IANCE / Product Type: MEDICAID RISK documented in this encounter Plan of Treatment Not on file documented as of this encounter Visit Diagnoses Not on filedocumented in this encounter Care Teams Electrical Machine Builder Relationship Specialty Start Date End Date Daphne Almanza MD [address] [place] [address] [phone] PCP - General Internal Medicine 07/31/15 Daphne Almanza MD [address] [place] [address] 07/29/15 documented as of this encounter
--- OUTSIDE RECORDS SUMMARY | 2024-06-18 08:20 | XMS_ITS | Encounter Summary ---
Author Organization [facility] Address [address] [place] [address] Care Team Providers Care Sheep Farmer Name Role Phone Daphne Almanza MD Primary Care Provider [phone] Daphne Almanza MD Unavailable [phone] Reason for Visit * Reason Onset Date Comments pain, chest 09/08/2017 anxiety 09/08/2017 Shortness Of Breath 09/08/2017 Encounter Details Date Type Department Care Team Description 09/08/2017 Telephone Adult Medicine [facility] [address] [place] [address] [phone] Daphne Almanza MD [address] [place] [address] [phone] pain, chest; anxiety; Shortness Of Breath Social History Tobacco Use Types Packs/Day Years [...] encounter Miscellaneous Notes * Telephone Encounter - Odilia Arrington L.P.N. - 09/08/2017 9:57 AM EDT Pt states she is having chest pain, sob 2 days ,she is anxious as well ,advised er eval ,they agreed and will go [facility] * Telephone Encounter - Anahi Godinez - 09/08/2017 9:51 AM EDT Symptoms patient is presenting: Patient daughter calling states that patient has been been having chest pain, and having anxiety, shortness of breath at times, ok at this time states that this has been going on for two days If pain or injury related was it due to an accident at work or from a motor vehicle accident? NO If yes, gather 3rd alliance party insurance information Date of accident/Injury: How long has patient had these symptoms?: Two days PCP: Daphne Almanza Payor: [employer] FFS / Plan: [email or web address] ALLIANCE / Product Type: MEDICAID RISK documented in this encounter Plan of Treatment Not on file documented as of this encounter Visit Diagnoses Not on filedocumented in this encounter Care Teams Sheep Farmer Relationship Specialty Start Date End Date Daphne Almanza MD [address] [place] [phone] PCP - General Internal Medicine 07/31/15 Daphne Almanza MD [address] [place] [address] 07/29/15 documented as of this encounter
--- OUTSIDE RECORDS SUMMARY | 2024-06-18 08:20 | XMS_ITS | Encounter Summary ---
Author Organization [facility] Address [address] [facility] [place] [address] Care Team Providers Care Handhole Machine Operator Name Role Phone Daphne Almanza MD Primary Care Provider [phone] Daphne Almanza MD Unavailable [phone] Encounter Details Date Type Department Care Team Description 04/04/2022 Line Locator Report Medical Records [address] [place] [phone] Victor Hugo Mckeon PA Social History Tobacco [...] on filedocumented in this encounter Care Teams Handhole Machine Operator Relationship Specialty Start Date End Date Daphne Almanza MD [address] [place] [address] PCP - General Internal Medicine 07/31/15 Daphne Almanza MD [address] [place] [address] 07/29/15 documented as of this encounter
--- OUTSIDE RECORDS SUMMARY | 2024-06-18 08:20 | XMS_ITS | Encounter Summary ---
Author Organization [facility] Address [address] [place] [address] Care Team Providers Care Rabbit Fancier Name Role Phone Daphne Almanza MD Primary Care Provider [phone] Daphne Almanza MD Unavailable [phone] Reason for Visit * Reason Onset Date Comments Faxed Order 04/20/2022 [facility] Encounter Details Date Type Department Care Team Description 04/20/2022 Telephone Adult Medicine [address] [phone] Daphne Almanza MD [address] [place] [address] [phone] Faxed Order ([facility] ) Social History Tobacco Use Types Packs/Day Years [...] on filedocumented in this encounter Care Teams Rabbit Fancier Relationship Specialty Start Date End Date Daphne Almanza MD [address] [place] [address] PCP - General Internal Medicine 07/31/15 Daphne Almanza MD [address] [place] [address] 07/29/15 documented as of this encounter
--- OUTSIDE RECORDS SUMMARY | 2024-06-18 08:20 | XMS_ITS | Encounter Summary ---
Author Organization [facility] Address [address] [place] [address] Care Team Providers Care Derrick Helper Name Role Phone Daphne Almanza MD Primary Care Provider [phone] Daphne Almanza MD Unavailable [phone] Reason for Visit * Reason Onset Date Comments Provider Call Back 09/15/2020 Encounter Details Date Type Department Care Team Description 09/15/2020 Telephone Adult Medicine [facility] [address] [place] [address] [phone] Daphne Almanza MD [address] [place] [phone] Provider Call Back Social History Tobacco Use [...] encounter Miscellaneous Notes * Telephone Encounter - Citlaly Nicholson M.A. - 09/15/2020 11:34 AM EDT Left message for pt to call back. She has an allergy appt On 09/30/20 at 3:30pm in our [place] office with the allergy Dr Luz Verduzco * Telephone Encounter - Marie Elaine - 09/15/2020 11:23 AM EDT Caller requesting call back from provider: Is the caller the patient? NO If caller is not the patient, what is the callers name? Suma Callers relationship to patient? Daughter If person calling is not the patient themselves, is there a verbal release in FYI or permanent comments for this person: YES Reason for call back: Pt missed appts allergy and PT, would like to speak to someone about getting ahold of where she was referred to reschedule since she in unaware Caller offered to speak with the nurse for assistance: YES Response: Patient offered to speak with nurse for assistance and patient agreed. Message forwarded to nurse. documented in this encounter Plan of Treatment Not on file documented as of this encounter Visit Diagnoses Not on filedocumented in this encounter Care Teams Derrick Helper Relationship Specialty Start Date End Date Daphne Almanza MD [address] [place] [phone] PCP - General Internal Medicine 07/31/15 Daphne Almanza MD [address] [place] [address] 07/29/15 documented as of this encounter
--- OUTSIDE RECORDS SUMMARY | 2024-06-18 08:21 | XMS_ITS | Encounter Summary ---
Author Organization [facility] Address [address] [place] [address] Care Team Providers Care Straight Line Press Setter Name Role Phone Daphne Almanza MD Primary Care Provider [phone] Daphne Almanza MD Unavailable [phone] Encounter Details Date Type Department Care Team Description 01/18/2017 Transfer Records Medical Records [address] [place] [phone] Abstract, Provider Social History Tobacco Use Types [...] on filedocumented in this encounter Care Teams Straight Line Press Setter Relationship Specialty Start Date End Date Daphne Almanza MD [address] [place] [address] [phone] PCP - General Internal Medicine 07/31/15 Daphne Almanza MD [address] [place] [address] [phone] 07/29/15 documented as of this encounter
--- OUTSIDE RECORDS SUMMARY | 2024-06-18 08:21 | XMS_ITS | Encounter Summary ---
Author Organization [facility] Address [address] [place] [address] Care Team Providers Care Government Clerk Name Role Phone Daphne Almanza MD Primary Care Provider [phone] Dpahne Almanza MD Unavailable [phone] Encounter Details Date Type Department Care Team Description 02/07/2017 Orders Only Adult Medicine [facility] [address] [place] [address] [phone] Mavis Osborn PA-C [address] [place], [place] [phone] Dysphagia, unspecified type Social History Tobacco Use [...] type documented in this encounter Care Teams Government Clerk Relationship Specialty Start Date End Date Daphne Almanza MD [address] [place] [address] PCP - General Internal Medicine 07/31/15 Daphne Almanza MD [address] [place] [address] 07/29/15 documented as of this encounter
--- OUTSIDE RECORDS SUMMARY | 2024-06-18 08:22 | XMS_ITS | Encounter Summary ---
Author Organization [facility] Address [address] [place] [address] Care Team Providers Care Ordering Box Operator Name Role Phone Daphne Almanza MD Primary Care Provider [phone] Daphne Almanza MD Unavailable [phone] Encounter Details Date Type Department Care Team Description 09/13/2019 Orders Only Medical Records [address] [place] [address] Pavan Ozuna MD [address] [facility] [address] [place] [address] Social History Tobacco Use Types Packs/Day Years [...] on filedocumented in this encounter Care Teams Ordering Box Operator Relationship Specialty Start Date End Date Daphne Almanza MD [address] [place] [address] PCP - General Internal Medicine 07/31/15 Daphne Almanza MD [address] [place] [address] 07/29/15 documented as of this encounter
--- OUTSIDE RECORDS SUMMARY | 2024-06-18 08:22 | XMS_ITS | Encounter Summary ---
Author Organization [facility] Address [address] [place] [address] Care Team Providers Care Telecasting Engineer Name Role Phone Daphne Almanza MD Primary Care Provider [phone] Daphne Almanza MD Unavailable [phone] Reason for Visit * Reason Comments E-prescribe Rx Request Encounter Details Date Type Department Care Team Description 08/18/2019 Refill Adult Medicine [address] [address] Alexus Farris PA-C E-prescribe Rx Request Social History Tobacco Use [...] encounter Miscellaneous Notes * Telephone Encounter - Fransisco Peterson M.A. - 08/21/2019 3:18 PM EDT Faxed to pharmacy * Telephone Encounter - Daksha Rg - 08/20/2019 1:36 PM EDT Last ov 07/23/19 Lab Results Component Value Date NA 140 06/11/2018 K 4.6 06/11/2018 CO2 27 06/11/2018 CL 106 06/11/2018 BUN 12 06/11/2018 CREAT 0.78 06/11/2018 GLU 95 06/11/2018 CA 9.4 06/11/2018 GFR > 60 06/11/2018 * Telephone Encounter - Silvina Boles - 08/18/2019 1:59 PM EDT Patient would like script to be: E-PRESCRIBED/FAXED TO PHARMACY WHEN WAS THE PATIENT'S LAST APPOINTMENT IN ADULT MEDICINE? 07/23/2019 WHEN WAS THE LAST TIME THE PATIENT SAW THEIR PCP? 03/26/2019 Does patient have an upcoming appointment? No-patient refused appointment, will call back to book appointment (THE MEDICATION REQUESTED IS ON THE MED LIST ABOVE) All of the medications requested were on the CURRENT MEDS list Did you check the Pharmacy information above?: YES Patient wants: 30 -day supply Is this a mail order prescription request ? NO If the refill is from a FAXED refill request what is the RX # listed on the fax? N/A Patients current insurance carrier is: Payor: [facility] FFS / [facility] [employer] [facility] / Product Type: MEDICAID RISK documented in this encounter Plan of Treatment Not on file documented as of this encounter Visit Diagnoses Not on filedocumented in this encounter Care Teams Telecasting Engineer Relationship Specialty Start Date End Date Daphne Almanza MD [address] [place] [phone] PCP - General Internal Medicine 07/31/15 Daphne Almanza MD [address] [place] [address] 07/29/15 documented as of this encounter
--- OUTSIDE RECORDS SUMMARY | 2024-06-18 08:22 | XMS_ITS | Clinical Summary ---
Author Organization [facility] Address [address] [place] [address] Care Team Providers Care Protection Agent Name Role Phone Daphne Almanza MD Primary Care Provider [phone] Daphne Almanza MD Unavailable [phone] Allergies Active Allergy Reactions Severity Noted Date Comments Aspirin 08/14/2015 GI upset with this and Motrin Pineapple 09/30/2020 Throat discomfort with fresh pineapple- oral allergy syndrome Medications Medication Sig Dispensed Refills Start Date End Date Status risperidone (RISPERDAL) 2 MG tablet 2 mg. 1 Tab bid 0 07/22/2015 Active venlafaxine (EFFEXOR-XR) 150 MG 24 hr capsule 150 mg. 1 Tab daily 0 07/22/2015 Active simethicone (MYLICON) 125 MG chewable tablet Take 1 Tab by mouth every 6 hours as needed for Flatulence. 60 Tab 11 12/30/2019 Active fexofenadine (Karen Allergy) 180 MG tablet Take 1 tablet by mouth daily. 30 tablet 5 02/23/2021 Active [facility] Antacid/Anti-Gas 200-200-20 MG/5ML Suspension TAKE 15 ML BY MOUTH 4 TIMES DAILY (BEFORE MEALS AND NIGHTLY). 769 mL 6 04/05/2021 Active docusate sodium (Colace) 100 MG capsule Take 1 Capsule by mouth 2 times daily. 60 Capsule 11 07/20/2021 Active polyethylene glycol (MiraLax) 17 g packet Take 1 Packet by mouth daily. 30 Each 07/20/2021 Active psyllium (METAMUCIL) 58.6 % packet Take 1 Packet by mouth daily. 30 Each 11 07/20/2021 Active gabapentin (NEURONTIN) 100 MG capsule PLEASE SEE ATTACHED FOR DETAILED DIRECTIONS 0 12/07/2021 Active eszopiclone (LUNESTA) 2 MG Tab TOME CHARLES TABLETA TODOS LOS D AL ACOSTARSE CUANDO SEA NECESARIO PARA DORMIR 0 11/14/2022 Active busPIRone (BUSPAR) 30 MG tablet TOME CHARLES TABLETA DOS VECES AL D A 0 11/19/2022 Active ProAir HFA 108 (90 Base) MCG/ACT Aero Soln Take 2 Puffs by mouth every 4 hours as needed for Cough or Wheezing. 2 Puffs every 4 hours as needed 54 g 1 02/06/2023 Active fluticasone (Flonase) 50 MCG/ACT nasal spray 1 [place] by Nasal route 2 times daily. 1 pump in each nostril each morning 47.4 g 5 02/06/2023 Active lorazepam (ATIVAN) 0.5 MG tablet TAKE 1 TABLET BY MOUTH TWICE A DAY NEEDED FOR SEVERE ANXIETY 0 12/28/2022 Active famotidine (PEPCID) 20 MG tablet Take 1 Tablet by mouth 2 times daily as needed for Heartburn. 60 Tablet 11 02/23/2023 Active azelastine (ASTELIN) 0.1 % nasal spray 2 Sprays by Each Nare route 2 times daily. Use in each nostril as directed 30 mL 5 04/05/2023 Active ondansetron (ZOFRAN) 4 MG tablet Take 1 Tablet by mouth every 8 hours as needed for Nausea for up to 7 days. 20 Tablet 0 06/13/2023 Active pantoprazole (PROTONIX) 40 MG tablet TAKE 1 TABLET TWICE A DAY BEFORE MEALS ON EMPTY STOMACH WAIT 30 MINS THEN EAT TO ACTIVATE MEDICATION 180 Tablet 4 06/17/2023 Active acetaminophen (TYLENOL) 650 MG CR tablet TOME CHARLES TABLETA DOS VECES AL AYAZ 60 Tablet 1 06/16/2023 Active cyclobenzaprine (FLEXERIL) 10 MG tablet Take 1 Tablet by mouth 3 times daily as needed for Muscle spasms. 30 Tablet 0 12/08/2023 Active Active Problems Problem Noted Date COVID-19 virus infection 11/30/2021 Overview: 8.28.22 Hypersomnolence 07/13/2021 Chronic insomnia 07/13/2021 Snoring 07/13/2021 Obstructive sleep apnea mild AHI 6 05/24 Overview: [facility] Home sleep test 05/13/2021; weight 155; BMI 27; AHI 6, AI 1, HI 5. 7 obstructive apneas, 1 central apnea and 31 hypopneas. Average oxygen saturation 95% with oxygen graciela 85%. Obstructive sleep apnea-mild with mostly hypopneas and some obstructive and central apneas without nocturnal hypoxemia based on 2021 home sleep test. Fibromyalgia 12/27/2019 Overview: Dr. Padilla ([facility] Rhe[facility]) Right ovarian cyst 05/09/2018 Last Assessment & Plan: Reviewed CT results from March 2021 with the patient. Discussed the cyst of the right ovary is very small and decreasing in size, which is reassuring. Discussed symptoms are not likely related to this small cyst. Overweight (BMI 25.0-29.9) 05/09/2018 Panic attack 05/09/2018 Overview: Dr. Kumar at [facility] Bilateral carpal tunnel syndrome 019 Overview: S/p release on left side only History of chest pain 09/22/2017 Overview: August 2017: Normal stress test Hypertriglyceridemia 07/21/2017 Thyroid nodule 05/09/2017 Overview: Apr 2017: right lobe with 0.7 cm nodule - annual sonogram recommended Asthma 08/14/2015 Anxiety and depression 08/14/2015 Overview: Dr. Kumar at [facility] GERD (gastroesophageal reflux disease) 0 08/14/2015 Seasonal allergies Hiatal hernia Rectal pain Diverticulosis Resolved Problems Problem Noted Date Resolved Date Urinary tract infection symptoms 07/08/2021 11/30/2021 Last Assessment & Plan: Clinically symptoms and exam findings are consistent with urinary tract infection. UA positive only for moderate blood. Urine culture sent. The patient was given empiric treatment for urinary tract infection today. Prescription for Bactrim and Pyridium was sent to her pharmacy. Elevated blood pressure reading 07/21/2017 03/26/2019 Postnasal drip 03/04/2021 Globus sensation 03/04/2021 Constipation 11/30/2021 Abdominal pain 11/30/2021 Immunizations Name Administration Dates Next Due COVID-19 (CARRIE) 02/11/2021,2020 COVID-19 (THEODORE Bryant) PT REPORTED 02/11/2021,06/19/2020 Flu (Generic) 05/11/2016,03/04/2015 Influenza (> 6 Months) 12/08/2023,2018,05/11/2016,03/04,02/19/2013,01/13/2012 Influenza Vaccine-preservati ve Free-quadrivalent 4 Years 02/06/2023,12/21/2021,03/04/2021,02/10 MMR (Ekrgobo-Pardc-Rlltvlw) 07/26/2011 Pneumoccoccal(Adult) Polysac charide PPSV23 05/09/2018 Pneumococcal(Pedi) Conjugate PCV-7 12/19/2006 TD (STATE SUPPLIED FOR ADULT S AND CHILDREN) 05/09/2018 Td, Adsorbed, Preservative F ree, Adult Use, Lf Unspecified 05/09/2018 Tdap 07/26/2011 Family History Medical History Relation Name Comments CA Breast Aunt 1 maternal Cancer of the Breast Aunt 1 maternal uterine cancer CA Breast Aunt 2 maternal Cancer of the Breast Aunt 2 maternal AL Brother 1 s/p stenting Diabetes Brother 2 HLD x 3, HTN x 4 (total 6 brothers) Alcohol Abuse Father ?pancreatic is sues Cancer of the Colon Maternal Grandfather and prostate cancer AL Maternal Grandmother diabete s, HLD Arthritis Mother Diabetes Mother stroke s/p brai n aneurysm (age 78), HTN, CAD, cataract, glaucoma Alcohol Abuse Paternal Grandfather Suicide Paternal Grandmother Diabetes Sister 1 HLD Diabetes Uncle maternal HLD Blindness Negative Hx Macular Degeneration Negative Hx Strabismus Negative Hx Relation Name Status Comments Aunt 1 maternal Aunt 2 maternal Alive Brother 1 Alive Brother 2 Alive Father Maternal Grandfather Maternal Grandmother Mother Paternal Grandfather Paternal Grandmother Sister 1 Alive Sister 2 Alive Uncle maternal Alive Social History Tobacco Use Types Packs/Day Years Used Date Smoking Tobacco: Former Cigarettes 0.3 35 Smokeless Tobacco: Never Tobacco Cessation:Counseling Given: Not Answered Comments:started age 13 yrs; max 1/4 PPD; quit age 48 Alcohol Use Standard Drinks/Week Comments No 0 (1 standard drink = 0.6 oz pur e alcohol) Sex Assigned at Date Recorded Not on file Job Start Date Occupation Industry Not on file Not on file Not on file Last Filed Vital Signs Vital Sign Reading Time Taken Comments Blood Pressure 132/68 12/22/2023 10:36 AM EDT Pulse 79 12/22/2023 10:36 AM EDT Temperature 36.4 ??C (97.5 ??F) 12/22/2023 1 0:36 AM EDT Respiratory Rate 14 12/22/2023 10:3 6 AM EDT Oxygen Saturation 95% 01/04/2023 3:12 PM EDT Inhaled Oxygen Concentration - - Weight 70.7 kg (155 lb 14.4 oz) 024 10:36 AM EDT Height 160 cm (5' 3 ) 12/22/2023 10:36 AM EDT Body Mass Index 27.62 12/22/2023 10:36 AM EDT Plan of Treatment Health Maintenance Due Date Last Done Comments CERVICAL CANCER SCREENING 1981 SHINGLES VACCINE (1 of 2) 2010 BASELINE HEALTH EXAM 40-64 11/03/202311/02, 06/11/2018, 05/09/2018 Covid-19 Vaccine (2022-2 4 season) 2023 02/11/2021, 02/11/2021, 06/19/2020, Additional history exists BMI CHECK/ADVISE 03/27/2024 09/09/2022, 08/2022, 05/30/2022, Additional history exists DEPRESSION SCREENING/FOLLOWUP 03/27/2024, 12/08/2022, 09/09/2022, Additional history exists SOCIAL NEEDS SCREENING 03/27/2024 , 05/12/2022, 03/09/2022, Additional history exists MAMMOGRAM 05/25/2024 05/26/2023, 04/28, 05/18/2021, Additional history exists PNEUMOCOCCAL VACCINE FOR HIG H RISK PATIENTS (#2) 2025 05/09/2018 CHOLESTEROL SCREENING 05/12/2027 05/12/2022 , 11/02/2021, 08/07/2020, Additional history exists DTAP/TDAP/TD (4 - Td or Tdap) 05/09/2028, 05/09/2018, 07/26/2011 COLON CANCER SCREENING 07/07/2031 , 04/20/2012 (External Completion), 04/20/2012 HEPATITIS C SCREENING Completed 06/11/2018 INFLUENZA Completed 12/08/2023, 01/25, 12/21/2021, Additional history exists Care Teams Protection Agent Relationship Specialty Start Date End Date Daphne Almanza MD [address] [place] [id number] PCP - General Internal Medicine 07/31/15 Daphne Almanza MD [address] [place] [phone] 07/29/15
--- OUTSIDE RECORDS SUMMARY | 2024-06-18 08:23 | XMS_ITS | Encounter Summary ---
Author Organization [facility] Address [address] [place] [address] Care Team Providers Care Claims Service Adjustor Name Role Phone Daphne Almanza MD Primary Care Provider [phone] Daphne Almanza MD Unavailable [phone] Reason for Visit * Reason Onset Date Comments DME Request 07/14/2021 Encounter Details Date Type Department Care Team Description 07/14/2021 Telephone Pulmonology - [place] [address] [facility] [address] [place] [phone] [facility] [place] [address] [place] [address] DME Request Social History Tobacco Use Types Packs/Day [...] encounter Miscellaneous Notes * Telephone Encounter - Milagro Amadors - 10/05/2021 4:17 PM EDT Delphine send a message pt has not return their call for set up. If pt calls please have them call delphine # [phone] * Telephone Encounter - Milagro Ruiz - 07/14/2021 12:17 PM EDT Done faxed order to [facility] for CPAP machine documented in this encounter Plan of Treatment Not on file documented as of this encounter Visit Diagnoses Not on filedocumented in this encounter Care Teams Claims Service Adjustor Relationship Specialty Start Date End Date Daphne Almanza MD [address] [place] [phone] PCP - General Internal Medicine 07/31/15 Daphne Almanza MD [address] [place] [phone] 07/29/15 documented as of this encounter
--- OUTSIDE RECORDS SUMMARY | 2024-06-18 08:23 | XMS_ITS | Encounter Summary ---
Author Organization [facility] Address [address] [place] [address] Care Team Providers Care Manager Shipping Name Role Phone Daphne Almanza MD Primary Care Provider [phone] Daphne Almanza MD Unavailable [phone] Encounter Details Date Type Department Care Team Description 05/08/2019 SCAN Medical Records [address] [place] [id number] Abstract, Provider Social History Tobacco Use Types [...] on filedocumented in this encounter Care Teams Manager Shipping Relationship Specialty Start Date End Date Daphne Almanza MD [address] [place] [phone] PCP - General Internal Medicine 07/31/15 Daphne Almanza MD [address] [place] [address] [phone] 07/29/15 documented as of this encounter
--- OUTSIDE RECORDS SUMMARY | 2024-06-18 08:23 | XMS_ITS | Encounter Summary ---
Author Organization [facility] Address [address] [facility] [place] [address] Care Team Providers Care Power Plant Engineer Name Role Phone Daphne Almanza MD Primary Care Provider [phone] Daphne Almanza MD Unavailable [phone] Encounter Details Date Type Department Care Team Description 08/18/2015 Release of Information Medical Records [address] [place] [id number] Abstract, Provider Social History Tobacco Use Types [...] on filedocumented in this encounter Care Teams Power Plant Engineer Relationship Specialty Start Date End Date Daphne Almanza MD [address] [place] [address] [phone] PCP - General Internal Medicine 07/31/15 Daphne Almanza MD [address] [place] [address] [phone] 07/29/15 documented as of this encounter
== END 2024-06-18 08:03 | disposition home or self-care (01) ==
LOC: HO.US 08:02
PROVIDERS: PCP Internal Medicine; Visit Provider Surgery Vascular Surgery
DX: K55.1 Chronic vascular disorders of intestine (principal)
CPT/HCPCS: 93976

== ENCOUNTER → 2024-06-18 08:05 | Outpatient (BNV) | payer OTHER, SELFPAY | PROVIDERS: PCP Internal Medicine; Visit Provider Radiology Diagnostic Radiology | DX: K55.1 Chronic vascular disorders of intestine (principal) | CPT/HCPCS: 93976 ==

== ENCOUNTER 2024-07-02 10:43 | Outpatient (AMB) | payer OTHER, SELFPAY ==
--- NOTE | 2024-07-02 10:50 | A.OFFVIS_ITS ---
Intake Visit Reasons: follow up s/p Mesenteric US 06/19/24 Intake Note: Follow up s/p mesenteric US performed on 06/19/24. No complaints. Accompanied by: Self / Same As Patient Allergies aspirin [ASA] Allergy (Intermediate, Verified 07/02/24 10:51) NAUSEA & VOMITING, stomach upset, nausea and vomiting HPI HPI follow up s/p Mesenteric US 06/19/24: Details: The patient is a 63-year-old female presenting for a follow-up regarding mesenteric stenosis. She now presents for follow-up with ultrasound testing.. She reports that her abdominal condition has improved significantly, although she occasionally experiences rapid episodes of stomach upset. Her dietary intake is stable, and there have been no notable changes in her weight. Overall, her symptoms have improved over time. [facility] Medical History Carpal tunnel syndrome Asthma Vocal cord anomaly Bloating Acid reflux Surgical History Hx of tubal ligation Social History Household Members Other:: alone Alcohol intake: never Patient Tobacco Use Status: Former Tobacco user Tobacco use type: Cigarette Years Smoked: quit 12 years ago Current occupational status: unemployed Review of Systems Const All systems reviewed & are unremarkable except as noted in HPI and below Reports no additional complaints ENT Reports Normal hearing present Card Denies chest pain, Denies chest pain at rest, Denies chest pain with activity and Denies pedal edema Resp Denies cough GI Denies abdominal pain Musc Denies abnormal gait, Denies muscle cramps and Denies radiating pain into limb Skin/Breast Denies skin ulcer and Denies wounds Neuro Reports Normal hearing present and Denies abnormal gait Psych Reports no additional complaints Physical Exam Const General: cooperative, healthy appearing and comfortable Orientation/consciousness: oriented to person, oriented to place and oriented to time HEENT Head: Yes normal to inspection Neck Neck: Yes normal visual inspection Carotids: no bruits Chest Chest palpation & inspection: normal inspection of the chest Resp Effort & Inspection: normal respiratory effort and able to speak in complete sentences Auscultation: clear to auscultation bilaterally, no crackles, no rales, no rhonchi and no wheezes Cardio Rate: regular rate Rhythm: regular rhythm Heart sounds: S1 normal heart sound present and S2 normal heart sound present Bruits: no carotid bruits Peripheral pulses: Peripheral pulses 2+ throughout GI Inspection: Yes normal to inspection Skin Wounds: no wounds Hair: normal Neuro General: oriented to person, oriented to place and oriented to time Cranial nerves: Yes CN's II-XII intact bilaterally and Yes Normal hearing present Cognition (Neuro): normal cognition Motor exam (neuro): 5/5 motor strength present throughout Extrem Other: venous exam: No significant superficial varicosities or spider telangiectasias, minimal edema General: No clubbing, No cyanosis and No edema Psych Appearance: grossly normal Mental Status: mental status grossly normal Speech and movement: Normal speech and movement present Results Reviewed Results Reviewed: Ultrasound testing dated 06/18/2024 demonstrates no flow-limiting stenosis in any mesenteric vessels. Assessment & Plan Assessment & Plan (1) Chronic mesenteric ischemia: Code(s): K55.1 - Chronic vascular disorders of intestine Category: Medical Plan: In short patient is negative for any significant mesenteric ischemia. At the current time appears to be generally improving. We did discuss importance of continued diet and frequent small meals. Should her symptoms change we recommend her following up with her primary care team. Thank you for allowing us to assist in her care. Plan Patient was informed and verbally consented to the use of an ambient scribe for clinic note documentation during this visit. Patient Instructions: - No immediate follow-up needed unless symptoms worsen. - Monitor for any new or worsening symptoms. - Continue usual diet. - Report any significant changes in health to your primary care provider. - Await follow-up with to Dr. Toledo and your GI specialist in [place]. Coding Level of Care Code Est Pt Level 4 (64104) Diagnoses Chronic mesenteric ischemia K55.1
--- OUTSIDE RECORDS SUMMARY | 2024-07-02 12:53 | XMS_ITS | Encounter Summary ---
Author Organization [facility] Address [address] [place] [address] Care Team Providers Care Assistant Branch Manager Name Role Phone Daphne Almanza MD Primary Care Provider [phone] Encounter Details Date Type Department Care Team (Late st Contact Info) Description 01/01/2024 2:30 PM EDT Hospital Encounter TH HISTORIC ENCOUNTERS [facility] ONLY Daphne Almanza MD [address] [place] [address] Social History Tobacco Use Types Packs/Day Years [...] care for your loved ones. For example, director maternal child or elderly care for an [...] Care Team (Late st Contact Info) Description 07/15/2024 2:00 PM EDT Office Visit Urogynecology [address] [phone] Kym Christine MD [address] [place] [phone] 07/18/2024 1:30 PM EDT Office Visit Adult Medicine [facility] [address] [place] [address] Mavis Osborn PA [address] [place], [place] documented as of this encounter Visit Diagnoses Not on filedocumented in this encounter Care Teams Assistant Branch Manager Relationship Specialty Start Date End Date Daphne Almanza MD [address] [place] [address] PCP - General Internal Medicine 11/30/13 documented as of this encounter
--- OUTSIDE RECORDS SUMMARY | 2024-07-02 12:53 | XMS_ITS | Encounter Summary ---
Author Organization [facility] Address [address] [place] [address] Care Team Providers Care Real Estate Professional Name Role Phone Daphne Almanza MD Primary Care Provider Reason for Visit * Reason Onset Date Comments Provider Call Back 05/27/2024 Encounter Details Date Type Department Care Team (Late st Contact Info) Description 05/27/2024 Telephone Gastroenterology - [place] [address] [place] [address] Glen Nino PA [address] [place], [place] [phone] Provider Call Back Social History Tobacco Use [...] care for your loved ones. For example, summer child caregiver or elderly care for an [...] 07/15/2024 2:00 PM EDT Office Visit Urogynecology [address] [phone] Kym Christine MD [address] [facility] [address] [place] [address] 07/18/2024 1:30 PM EDT Office Visit Adult Medicine [facility] - [address] [phone] Mavis Osborn PA [address] [place], [place] documented as of this encounter Visit Diagnoses Not on filedocumented in this encounter Additional Health Concerns Assessment Noted Time PHQ-9 Depression Total Score: 1 04/15/19 25 2:51 PM EST documented as of this encounter Care Teams Real Estate Professional Relationship Specialty Start Date End Date Daphne Almanza MD [address] [place] [phone] PCP - General Internal Medicine 11/30/13 documented as of this encounter
--- OUTSIDE RECORDS SUMMARY | 2024-07-02 12:53 | XMS_ITS | Data Portability ---
Author Organization [facility]son [facility], [address] Address [address] [place] [address] Care Team Providers Care Surgical Supply Assistant Name Role Phone ROSHNI, DEVYN Primary Care Provider Assessment No assessment recorded. Plan of Treatment Reminders Order Date Submit Date Provider Last Modified By Organization Details Last Modified Time Details Appointments None recorded. Lab None recorded. Referral None recorded. Procedures None recorded. Surgeries None recorded. Imaging None recorded. Medication Orders olopatadine 0.1 % eye drops [address] [id number], [address] [place] [address], [phone], 3 16:15:39 ciprofloxac in 0.3 % eye drops [address] [id number], [address] [place], [address], 3 16:15:39 Medrol (Constantin) 4 mg tablets in a dose pack [address] [id number], [address] [place] [address], [phone], 3 15:36:43 Patient TargetsNo targets recorded. Patient Instructions Encounter Date Encounter Id Patient Instructions Last Modified By Organization Details Last Modified Time 04/06/2022 [id number] Eczema: Care Instructions Not available 04/06/2022 15:22:26 [...] as you are not taking any other mgbw-rdr-wshdfhj or prescription medications which already contain Acetaminophen (the same ingredient that is in Tylenol). Not available 04/06/2022 16:08:48 08/12/2022 [id number] Based on your presentation and exam, you [...] next 1 week. Thank you for using [facility] today, please feel free to contact us with any questions or concerns. Not available 08/12/2022 16:15:35 Reason for Referral None Reported. Problems Name Problem SNOMED Code Status Onset Date Resolution Date Notes Provider Name and Address Organization Details Recorded Time Gastroesophage al reflux disease 102136169 Active 2022 ANGEL lowery, PA - [facility] 3 14:39:43 Fibromyalgia 095143177 Active 2022 ANGEL lowery PA - [facility] 3 14:39:55 Anxiety 20291929 Active 2022 ANGEL lowery PA - [facility] 3 14:40:02 Asthma 395298621 Active 2022 [facility] - [facility] [...] Name and Address Organization Details Recorded Time 615622 aspirin medicatio n gi bleed Not available Not available 04/06/2022 1191 RxNorm ANGEL MARYAN null, PA - [facility] 14:36:43 092196 apple extract food anaphylax is Not available Not available 04/06/2022 52560 65 RxNorm ANGEL MARYAN null, PA - [...] MOUTH ONCE A DAY DIRECTION S IN JAPANESE active Not Available Not Available No t [...] Updated DateTime 3 160.02 cm 27.5 kg/m2 76497.8 2 g 5 18 /min 98 % [...] Updated DateTime 3 160.02 cm 27.6 kg/m2 85092.4 1 g 99 % 99 % 65 [...] Use Any Illicit Or Recreational Drugs? No [email or web address] Information not available 08/12/2022 Have You Recently Traveled Abroad? No [email or web address] Information not available 08/12/2022 Do You Or Have You Ever Used Any Other Forms Of Tobacco Or Nicotine? No [email or web address] Information not available 08/12/2022 Sex: Unknown Functional [...] Influenza, split virus, quadrivalent, PF 9 completed ANGLE MARYAN null, PA - [facility] 04/06/2022 [...] SNOMED-CT Code Diagnosis ICD10 Code Diagnosis Note [id number] [address] [place] [address] 03/14/2018 16:16:14 03/14/2018 16:59:15 [id number] Carmen Preciado MD [address] [place] [address] 04/06/2022 13:41:28 04/06/2022 15:30:14 Pruritic disorder 199087738 L29.9 You will need to follow up with your PCP or a specialist such as an Mutual Fund Sales Agent for this ongoing symptom [id number] ADRAYN [facility]ARTINEZ [address] [address] [place] [address] 08/12/2022 13:52:50 08/12/2022 16:17:02 Allergic conjunctivitis 609012348 H10.13 Blood pressure was elevated - try and monitor. Avoid Decongesta nts. Health Concerns Section Related Observation LastModified by Organization Detai ls LastModified Time None Recorded Concern Status LastModified by Organization Details LastModified Time None Recorded Advance Directives Directive None Recorded Payers Encounter Date Sequence Insurance Name Policy Number Policy Caraballo Covered Member ID Caraballo Member ID Guarantor Name 03/14/2018 1 [facility] (MEDICAID HMO) DAVID Eldridge [id number] Nila Banks 04/06/2022 1 [facility] (MEDICAID HMO) DAVID Eldridge [id number] Nila Banks 08/12/2022 1 [facility] (MEDICAID HMO) DAVID Eldridge [id number] Nila Banks Notes Date Note Type Note Provider Name and Address Organization Details Recorded Time 3 text/html Rash / Skin LesionReported bypatient.Quality:itchy Context:No new products, detergents, creams, soaps, TRuied antihistamines and one ciourse steroiid 2 weeks ago. has been to both PCP and UCNotes:No rash present.Feels very itchy Carmen Preciado MD [address] [place], [phone], PA - [facility] 04/06/2022 16:09:05 3 [...] irritating. ADRYAN MARTINEZ [address] [place], [phone], PA - [facility] 08/12/2022 16:20:55 OBGyn Episode No OBEpisode recorded.
--- OUTSIDE RECORDS SUMMARY | 2024-07-02 12:53 | XMS_ITS | Clinical Summary ---
Author Organization [facility] [address] [place] [address] Address [address] [facility] [place] Phone Care Team Providers Care Millinery Department Manager Name Role Phone Daphne Almanza MD Primary Care Provider [phone] Allergies Active Allergy Reactions Criticality Noted Date [...] a day. 50 tablet 6 5 Active Active Problems Problem Noted Date Diagnosed Date [...] 07/13/2021 Obstructive sleep apnea 05/24/2021 Overview (03/08/2024): [facility] Home sleep test 05/13/2021; weight 155; BMI 27; AHI 6, AI 1, HI 5. 7 obstructive apneas, 1 central apnea and 31 hypopneas. Average oxygen saturation 95% with oxygen graciela 85%. Obstructive sleep apnea-mild with mostly hypopneas and some obstructive and central apneas without nocturnal hypoxemia based on 2021 home sleep test. Fibromyalgia 12/27/2019 Overview (03/08/2024): Dr. Padilla ([facility]) Bilateral carpal tunnel syndrome 05/09/2018 Overview (03/08/2024): S/p release on left side only Overweight (BMI 25.0-29.9) 05/09/2018 Panic attack 05/09/2018 Overview (03/08/2024): Dr. Kumar at [facility] Right ovarian cyst 05/09/2018 Overview (03/08/2024): [...] depression 08/14/2015 Overview (03/08/2024): Dr. Kumar at [facility] Asthma 08/14/2015 GERD (gastroesophageal reflux disease) 6 Encounters Date Type Department Care Team Description 05/27/2024 Telephone Gastroenterology [facility] [address] [phone] Andrew Nino PA Provider Call Back 05/20/2024 9:54 AM EST - 05/20/2024 11:59 PM EST Hospital Encounter Radiology Department - [address] [phone] Breast pain Discharge Disposition: Home or Self Care 05/20/2024 9:54 AM EST - 05/20/2024 11:59 PM EST Hospital Encounter Radiology Department - [address] [phone] Pain of both breasts Discharge Disposition: Home or Self Care 05/09/2024 Telephone Gastroenterology [facility] [address] [facility] [address] [phone] Andrew Nino PA Medication Problem 05/07/2024 10:15 AM EST Office Visit Adult Medicine [address] [phone] Mavis Osborn PA Pain of both breasts (Primary Dx) 05/07/2024 Telephone Adult Medicine [address] [phone] Rhiannon Kumar [place] Appointment 05/06/2024 9:20 AM EST Office Visit [facility] - [place] [address] [phone] Andrew Nino PA Dyspepsia (Primary Dx); Bloating; Enteritis; Rectal irritation; Vascular abnormality 05/01/2024 Telephone Gastroenterology - [place] 175 [facility] [address] [phone] Andrew Nino PA 04/30/2024 Telephone Gastroenterology [facility] 175 [facility] [address] [phone] Andrew Nino PA 04/29/2024 Telephone Gastroenterology [facility] 175 [facility] [address] [phone] Andrew Nino PA Medication Problem 04/26/2024 4:16 PM EST - 04/26/2024 11:59 PM EST Hospital Encounter [facility] CT Scan [address] [place] [address] Diverticulosis; H/O diverticulitis of colon; LLQ pain; Elevated liver enzymes; Gastroesophageal reflux disease without esophagitis; Rectal irritation Discharge Disposition: Home or Self Care 04/25/2024 10:45 AM EST Office Visit Obstetrics and Gynecology [address] [phone] Maria Victoria Ellington MD Pelvic pressure in female (Primary Dx); Vaginal pain 04/18/2024 7:25 AM EST - 04/18/2024 10:23 AM EST Emergency [facility] Emergency [address] [place] [address] Ralph Menard MD Vaginal pain (Primary Dx); Rectal pain Discharge Disposition: Home or Self Care 04/15/2024 3:00 PM EST Office Visit Adult Medicine [address] [phone] Stephanie Barragan PA Pelvic pressure in female (Primary Dx); Decreased GFR; Elevated LFTs; Diverticulitis; Rectal pain 04/12/2024 1:20 PM EST Office Visit Gastroenterology - [place] 175 [facility] 175 [facility] [address] [place] [address] Andrew Nino PA Diverticulosis (Primary Dx); H/O diverticulitis of colon; LLQ pain; Elevated liver enzymes; Gastroesophageal reflux disease without esophagitis; Rectal irritation 04/11/2024 Telephone Adult Medicine [facility] - [address] [phone] Daphne Almanza MD er follow up ([facility] /04/10/24) 04/08/2024 Telephone Obstetrics and Gynecology [address] [phone] Maria Victoria Ellington MD er follow up from Last 3 Months Immunizations Name Administration Dates Next Due Influenza Quadravalent, MDCK , 0.5ml, preservative free (Flucelvax) 6mo and older 02/06/2023,12/21/2021,03/04/2021,02/10 Influenza trivalent, 0.5mL, preservative free (Fluarix; FluLaval; Fluzone) ages 6mo and older (Afluria) 3 years and older 12/08/2023,03/10/2019,02/19/2013,01/12 Influenza trivalent, with pr eservative (Fluzone; Afluria) 6mo and older 05/11/2016,03/04/2015 [employer] SARS-CoV-2 COVID -19, vector-nr, rS-Ad26, preservative free [...] PROCEDURE: HISTORICAL TUBAL LIGATION ESOPHAGOGASTRODUODENOSCOPY 08/20/2015 PROCEDURE: CA ESOPHAGOGASTRODUODENOSCOPY TRANSORAL DIAGNOSTIC; COMMENT: Dr. De La Rosa - small H/H o/w normal. COLONOSCOPY 04/20/2012 PROCEDURE: HISTORICAL COLONOSCOPY; COMMENT: [facility] - normal CARPAL TUNNEL RELEASE Left PROCEDURE: HISTORICAL CARPAL TUNNEL REL ESOPHAGOGASTRODUODENOSCOPY PROCEDURE: CA EGD TRANSORAL BIOPSY SINGLE/MULTIPLE; COMMENT: 08/2019 with [...] infection 11/30/2021 DX:COVI D-19 virus infection; COMMENT: 828.22 Choking DX:Choking Family History Medical History Relation [...] for your loved ones. For example, children's ministries director or elderly care for an older [...] 7 8 Date Outcome GA Total Labor Labor/04/29 Weight Sex Type Anes PTL Stacy A1 [...] 07/15/2024 2:00 PM EDT Office Visit Urogynecology [address] [phone] Kym Christine MD [address] [place] [address] 07/18/2024 1:30 PM EDT Office Visit Adult Medicine [facility] - [address] [phone] Mavis Osborn PA [address] [place] [address] Health Maintenance Due Date Last Done Comments Cervical Cancer Screening: Pap Smear 1981 Zoster Vaccines (1 of 2) 2010 Pneumococcal Vaccine: 50+ Years (2 of 2 - PCV) 05/09/2019 05/09/2018 RSV Immunization Adult Patients (1 - Risk 60-74 years 1-dose series) [...] age to complete this topic Meningococcal B Vaccine Aged Out No l onger eligible based on patient's age to complete [...] Gastroesophageal reflux disease without esophagitis Rectal irritation DEPRESSION SCREENING Routine 04/05/2023 COLONOSCOPY Routine 07/06/2021 [...] is recommended in 1 year. MAMMO LOCATION: [facility], [address] [place] [address], [id number], . -------- FINAL REPORT -------- Dictated By: Deja Staley Dictated Date: 05/20/2024 10:36 ET Assigned Physician: Deja Staley Reviewed and Electronically Signed By: Deja Staley Signed Date: 05/20/2024 10:43 ET Workstation ID: [id number] Transcribed By: Self Edit Transcribed Date: 05/20/2024 [...] is recommended in 1 year. MAMMO LOCATION: [facility], [address] [place] [address], [address], . -------- FINAL REPORT -------- Dictated By: Deja Staley Dictated Date: 05/20/2024 10:36 ET Assigned Physician: Deja Staley Reviewed and Electronically Signed By: Deja Staley Signed Date: 05/20/2024 10:43 ET Workstation ID: [id number] Transcribed By: Self Edit Transcribed Date: 05/20/2024 10:36 ET us Mavis BRAUN US PROCEDURES Final Resul t * MG [...] is recommended in 1 year. MAMMO LOCATION: [facility], [address] [place] [address], [address], . -------- FINAL REPORT -------- Dictated By: Deja Staley Dictated Date: 05/20/2024 10:36 ET Assigned Physician: Deja Staley Reviewed and Electronically Signed By: Deja Staley Signed Date: 05/20/2024 10:43 ET Workstation ID: [id number] Transcribed By: Self Edit Transcribed Date: 05/20/2024 [...] is recommended in 1 year. MAMMO LOCATION: [facility], [address] [place] [address], [phone], . -------- FINAL REPORT -------- Dictated By: Deja Staley Dictated Date: 05/20/2024 10:36 ET Assigned Physician: Deja Staley Reviewed and Electronically Signed By: Deja Staley Signed Date: 05/20/2024 10:43 ET Workstation ID: [id number] Transcribed By: Self Edit Transcribed Date: 05/20/2024 10:36 ET Mavis CORNELIUS IMG BI PROCEDURES Final Resul t * CT Angio Abdomen Pelvis wo and/or w Contrast (05/17/2024 3:39 PM EST) Anatomical Region Laterality Modality Body Computed Tomogra phy Historical Provider IMMarah CT PROCEDURES Final R esult * CT [...] Signed Date: 04/26/2024 17:15 ET Workstation ID: [id number] Transcribed By: Self Edit Transcribed Date: 04/26/2024 [...] Signed Date: 04/26/2024 17:15 ET Workstation ID: [id number] Transcribed By: Self Edit Transcribed Date: 04/26/2024 17:11 ET us Andrew CORNELIUS IM CT PROCEDURES Final Result * (ABNORMAL) Urinalysis with reflex microscopic and culture (04/18/2024 8:09 AM EST) Only the most recent of2 resultswithin the time period is included. Specific [place] Urine 1.017 1.003 - 1.030 LAB URINALYSIS [...] CORNELIUS LAB URINE ORDERABLES Final Re sult [facility] [address] [place] [address], * Forrest urine culture tube (04/18/2024 8:09 AM EST) Only the most recent of2 resultswithin the time period is included. Extra Tube Hold for add-ons. 04/18/2024 10:01 AM EST [facility] Comment:Auto resulted. Urine Urine specimen obtained by clean catch procedure / Unknown Non-blood Collection / Unknown 04/18/2024 8:09 AM EST 04/18/2024 8:28 AM EST us Marleny CORNELIUS LAB URINE ORDERABLES Final Re sult Performing Organization Address [facility]/ZIP Co de Phone Number [facility] [address] [place] [address], [place] [phone] * Culture urine (04/18/2024 8:09 AM EST) Culture, Urine No growth 04/19/2024 9:01 AM EST [facility] Urine Urine specimen obtained by clean catch procedure / Unknown Non-blood Collection / Unknown 04/18/2024 8:09 AM EST 04/18/2024 8:35 AM EST us Marleny CORNELIUS LAB MICROBIOLOGY - GENERAL OR DERABLES Final Result Performing Organization Address City/[facility]/ZIP Co de Phone Number [facility] [address] [place] [address], [place] [phone] * Trichomonas vaginalis antigen (04/18/2024 8:00 AM EST) Trichomonas vaginalis Negative Negative 04/18/2024 10:12 AM EST [facility] Swab Vaginal structure / Unknown Non-blood Collection / Unknown 04/18/2024 8:00 AM EST 04/18/2024 8:27 AM EST us Marleny CORNELIUS LAB MICROBIOLOGY - GENERAL OR DERABLES Final Result Performing Organization Address [facility]/ZIP Co de Phone Number [facility] [address] [place] [address], [place] [phone] * Chlamydia trachomatis and Neisseria gonorrhoeae molecular study (04/18/2024 8:00 AM EST) Neisseria gonorrhoeae PCR Negative Negative LAB MOLECULAR DIAGNOSTICS METHOD 04/18/2024 10:50 AM EST [facility] Chlamydia trachomatis PCR Negative Negative LAB MOLECULAR DIAGNOSTICS METHOD 04/18/2024 10:50 AM EST [facility] Swab Vaginal structure / Unknown Non-blood Collection / Unknown 04/18/2024 8:00 AM EST 04/18/2024 8:27 AM EST us Marleny CORNELIUS LAB MICROBIOLOGY - GENERAL OR DERABLES Final Result Performing Organization Address [facility] Co de Phone Number [facility] [address] [place] [address], [place] [phone] * Wet prep, genital (04/18/2024 8:00 AM EST) Clue Cells, Wet Prep Negative Negative 04/18/2024 10:13 AM EST [facility] Yeast, Wet Prep Negative Negative 04/18/2024 10:13 AM EST [facility] Trichomonas, Wet Prep Indeterminate Negative 04/18/2024 10:13 AM EST [facility] Comment:Refer to Trichomonas antigen. Swab Vaginal structure / Unknown Non-blood Collection / Unknown 04/18/2024 8:00 AM EST 04/18/2024 8:27 AM EST us Marleny CORNELIUS LAB MICROBIOLOGY - GENERAL OR DERABLES Final Result Performing Organization Address City/[facility]/ZIP Co de Phone Number [facility] [address] [place] [address], [place] [phone] * (ABNORMAL) CBC auto differential (04/17/2024 9:48 PM EST) Only the most recent of2 resultswithin the time period is included. [facility] Signature WBC 9.4 4.8 - 10.8 K/mcL LAB [...] PM [facility] Immature Granulocytes Absolute 0.04(H) 0.00 - 0.03 K/mcL LAB HEMETOLOGY METHOD 04/17/2024 10:28 PM [facility] Blood Venous blood specimen / Unknown Venipuncture / Unknown 04/17/2024 9:48 PM EST 04/17/2024 10:17 PM EST Liban Santo LAB BLOOD ORDERABLES Final Resu lt Performing Organization Address [facility]/ZIP Co de Phone Number [facility] [address] [place] [address], [place] [phone] * Lipase (04/17/2024 9:48 PM EST) Lipase 54 13 - 75 unit/L LAB CHEMISTRY METHOD 04/17/2024 10:45 PM EST [facility] Blood Venous blood specimen / Unknown Venipuncture / Unknown 04/17/2024 9:48 PM EST 04/17/2024 10:17 PM EST Liban [facility] LAB BLOOD ORDERABLES Final Resu lt Performing Organization Address [facility]/ZIP Co de Phone Number [facility] [address] [place] [address], [place] [phone] * (ABNORMAL) Comprehensive metabolic panel (04/17/2024 9:48 PM EST) Only the most recent of2 resultswithin the time period is included. Sodium 139 133 - 145 mmol/L LAB CHEMISTRY METHOD 04/17/2024 10:48 PM EST [facility] Potassium 4.8 3.5 [...] 04/17/2024 10:48 PM [facility] Blood Venous blood specimen / Unknown Venipuncture / Unknown 04/17/2024 9:48 PM EST 04/17/2024 10:17 PM EST us Liban Santo DO LAB BLOOD ORDERABLES Final Resu lt [facility] [address] [place] [address], [place] [phone] * Bilirubin duplicate procedure to order (04/12/2024 2:15 PM EST) Total Bilirubin 0.4 0.0 - 1.4 mg/dL LAB CHEMISTRY METHOD 04/12/2024 10:21 PM EST [facility] Bilirubin, Direct 0.1 0.0 - 0.3 mg/dL LAB CHEMISTRY METHOD 04/12/2024 10:21 PM EST [facility] Bilirubin, Indirect 0.3 0.0 - 1.1 mg/dL LAB CHEMISTRY METHOD 04/12/2024 10:21 PM EST [facility] Blood Venous blood specimen / Unknown Venipuncture / Unknown 04/12/2024 2:15 PM EST 04/12/2024 2:15 PM EST Mavis CORNELIUS LAB BLOOD ORDERABLES Final Re sult [facility] [address] [place] [address], [place] [phone] * (ABNORMAL) Lipid panel with reflex to direct LDL (04/12/2024 2:15 PM EST) Cholesterol 210(H) 0 - 200 mg/dL LAB CHEMISTRY METHOD 04/12/2024 10:21 PM EST [facility] Triglycerides 153(H) 0 - 150 mg/dL LAB CHEMISTRY METHOD 04/12/2024 10:21 PM EST [facility] HDL 46 >=40 mg/dL LAB CHEMISTRY METHOD 04/12/2024 10:21 PM EST [facility] LDL Calculated 133(H) 0 - 100 mg/dL LAB CHEMISTRY METHOD 04/12/2024 10:21 PM [facility] VLDL Cholesterol Abdiel 30.6 mg/dL LAB CHEMISTRY METHOD 04/12/2024 10:21 PM [facility] Non HDL Chol. (LDL+VLDL) 164(H) <145 mg/dL LAB CHEMISTRY METHOD 04/12/2024 10:21 PM [facility] Chol/HDL Ratio 4.6(H) 0.0 - 4.4 LAB CHEMISTRY METHOD 04/12/2024 10:21 PM [facility] Blood Venous blood specimen / Unknown Venipuncture / Unknown 04/12/2024 2:15 PM EST 04/12/2024 2:15 PM EST us Andrew CORNELIUS LAB BLOOD ORDERABLES Final Resu lt Performing Organization Address City/[facility]/ZIP Co de Phone Number [facility] [address] [place] [address], [place] [phone] * Iron (04/12/2024 2:15 PM EST) Pathologist [facility] Iron 90 40 - 150 mcg/dL LAB CHEMISTRY METHOD 04/12/2024 10:21 PM [facility] Blood Venous blood specimen / Unknown Venipuncture / Unknown 04/12/2024 2:15 PM EST 04/12/2024 2:15 PM EST us Andrew CORNELIUS LAB BLOOD ORDERABLES Final Resu lt [facility] [address] [place] [address], [place] [phone] * Ferritin (04/12/2024 2:15 PM EST) Ferritin 93 8 - 252 ng/mL LAB CHEMISTRY METHOD 04/12/2024 10:21 PM EST [facility] Blood Venous blood specimen / Unknown Venipuncture / Unknown 04/12/2024 2:15 PM EST 04/12/2024 2:15 PM EST Andrew CORNELIUS LAB BLOOD ORDERABLES Final Resu lt [facility] [address] [place] [address], * Depression Screening (04/05/2023) Depression Screening Abstracted Historical Provider HEALTH MAINTENANCE Final Result * Colonoscopy (07/06/2021) Colonoscopy No Interpretation , Abstracted Anatomical Region Laterality Modality Other Historical Provider HEALTH MAINTENANCE Final Result * Hepatitis C Screening (06/11/2018) Hepatitis C Screening Abstracted Historical Provider HEALTH MAINTENANCE Final Result from Last 3 Months or Most Recently Relevant to Health Maintenance [place] [address] [place] [address] HEALTH PLAN Care Teams Millinery Department Manager Relationship Specialty Start Date End Date Daphne Almanza MD [address] [place] [id number] PCP - General Internal Medicine 11/30/13
== END 2024-07-02 12:26 | disposition home or self-care (01) ==
PROVIDERS: PCP Internal Medicine; Visit Provider Surgery Vascular Surgery
DX: K55.1 Chronic vascular disorders of intestine (principal)
CPT/HCPCS: 99214

== ENCOUNTER → 2024-07-02 10:43 | Outpatient (BNVA) | payer OTHER, SELFPAY | PROVIDERS: PCP Internal Medicine; Visit Provider Surgery Vascular Surgery | DX: K55.1 Chronic vascular disorders of intestine (principal) | CPT/HCPCS: 99212 ==

== ENCOUNTER 2024-07-03 01:29 | Emergency (ER) | payer OTHER, SELFPAY ==
--- NOTE | ~2024-07-03 | XR_ITS ---
CLINICAL HISTORY: cough sob 2 view chest x-ray Comparison: CR/SR - XR CHEST 1V - 12/14/23 22:56 EDT Findings: Mild left lower lobe atelectasis. No significant pleural effusion or pneumothorax. Similar prominent/enlarged cardiac silhouette. No acute fracture. IMPRESSION: Mild left lower lobe atelectasis. This document has been electronically signed by: Parth Mederos MD on 07/03/2024 02:14:29
[2024-07-03 01:31] VITALS: BP 152/72; PULSE 80; RESP 18; TEMP 37.2; O2SAT 98; BMI 27.1
[2024-07-03 01:57] LABS: IDNOW Serial# 6674DD1D; Strep A Nucleic Acid Negative (Negative)
[2024-07-03 02:22] LABS: Influenza A PCR POSITIVE (Negative); Influenza B PCR NEGATIVE (Negative); Resp Syncy Virus RNA Qual PCR NEGATIVE (Negative); SARS COV2 PCR INHOUSE NEGATIVE (Negative)
--- NOTE | 2024-07-03 02:43 | ED_ITS ---
HPI - URI/Sore Throat General Chief Complaint: Upper Respiratory Symptoms Stated Complaint: coughing/asthma Time Seen by Provider: 07/03/24 02:32 Source: patient and family (Daughter) Mode of arrival: ambulatory Limitations: no limitations History of Present Illness ED Provider: DR. Hoang HPI Narrative: 63-year-old female came in for evaluation of upper respiratory infection x3 days, no known sick contacts, patient is complaining of headache, sore throat, generalized body ache, dry cough, no fever, no chills. Patient with known history of asthma and former smoker. Related Data Home Medications ?Medication ?Instructions ?Recorded ?Confirmed buspirone 30 mg tablet 30 mg PO BID 03/04/20 03/04/20 famotidine 20 mg tablet 20 mg PO BID 03/04/20 03/04/20 loratadine 10 mg capsule 10 mg PO DAILY 03/04/20 03/04/20 pantoprazole 40 mg tablet,delayed 40 mg PO DAILY 03/04/20 03/04/20 release risperidone 2 mg tablet (Risperdal) 2 mg PO DAILY 10/13/20 gabapentin 100 mg capsule 100 mg PO BID 02/28/24 azelastine 137 mcg (0.1 %) nasal 2 spray intranasal BID 05/01/24 spray eszopiclone 2 mg tablet 2 mg PO BEDTIME PRN insomnia 05/01/24 fluticasone propionate 50 1 spray intranasal BID 05/01/24 mcg/actuation nasal spray,suspension hydrocortisone 1 % topical cream 1 appl topical BID 05/01/24 with perineal applicator tramadol 50 mg tablet 50 mg PO Q6H PRN severe pain 05/01/24 venlafaxine 150 mg 150 mg PO DAILY 05/01/24 capsule,extended release 24 hr Previous Rx's ?Medication ?Instructions ?Recorded docusate sodium 100 mg capsule 200 mg (2 x 100 mg) PO DAILY #60 03/27/21 (Colace) caps polyethylene glycol 3350 17 17 g PO DAILY #510 grams 03/27/21 gram/dose oral powder (Miralax) lorazepam 1 mg tablet (Ativan) 1 mg PO BID PRN anxiety #8 tabs 12/16/22 phenazopyridine 200 mg tablet 200 mg PO TID PRN pain 6 doses #6 03/10/24 (Pyridium) tabs ibuprofen 600 mg tablet 600 mg PO Q8H PRN pain #30 tabs 04/05/24 oxycodone 5 mg capsule 5 mg PO Q8H PRN pain 3 days #9 caps 05/01/24 albuterol sulfate 90 mcg/actuation 2 puff inhalation Q6H PRN 07/03/24 aerosol inhaler shortness of breath or wheezing #8.5 grams prednisone 10 mg tablet 10 mg PO BID #10 tabs 07/03/24 Allergies Allergy/AdvReac Type Severity Reaction Status Date / Time aspirin [ASA] Allergy Intermediate NAUSEA & Verified 07/03/24 01:34 VOMITING, stomach upset, nausea and vomiting Review of Systems Review of Systems: All other systems are reviewed and are negative Constitutional: Reports as per HPI and Reports no additional constitutional complaints Eyes: Reports as per HPI and Reports no additional eye complaints Reports system reviewed and no additional complaints, except as documented Cardiovascular: Reports as per HPI and Reports no additional cardiovascular complaints Respiratory: Reports as per HPI and Reports no additional respiratory complaints Gastrointestinal: Reports as per HPI and Reports no additional gastrointestinal complaints Genitourinary: Reports no additional female genitourinary complaints Musculoskeletal: Reports no additional musculoskeletal complaints Skin/Breast: Reports system reviewed and no additional complaints, except as docu Psychiatric: Reports no additional psychiatric complaints Endocrine: Reports no additional endocrine complaints Hematologic/Lymphatic: Reports no additional hematologic/lymphatic complaints Allergic/Immunologic: Reports no additional allergic/immunologic complaints Reports system reviewed and no additional complaints, except as documented and Reports Abnormal speech present [facility] Past Medical History Medical History Carpal tunnel syndrome Asthma Vocal cord anomaly Bloating Acid reflux Surgical History Hx of tubal ligation Social History Social History Household Members Other:: alone Alcohol intake: never Patient Tobacco Use Status: Former Tobacco user Tobacco use type: Cigarette Years Smoked: quit 12 years ago Current occupational status: unemployed Physical Exam Vital Signs: Vital Signs: Last Vital Signs Temp 98.9 F 07/03/24 01:31 Pulse 80 07/03/24 01:31 Resp 18 07/03/24 01:31 BP 152/72 H 07/03/24 01:31 Pulse Ox 98 07/03/24 01:31 O2 Del Method Room Air 07/03/24 01:31 BMI result Body Mass Index 27.1 Vital signs have been reviewed and appear to be correct. Blood pressure elevated. Heart rate normal. Respiratory rate normal. Temperature normal. Oxygen saturation normal. Appearance: Alert. Oriented X3. No acute distress. Head: Normal external exam. Normocephalic. Atraumatic. No [place] signs noted. No raccoon eyes noted Eyes: PERRLA. EOMI. Conjunctiva and sclera normal. Eyelids normal. ENT: TM's Normal. Pharynx normal. Uvula midline. Moist mucous membranes. No trismus noted. No drooling noted. No muffled voice noted. Neck: Normal inspection. Neck supple. FROM. No adenopathy. Thyroid Normal. No meningeal signs. No neck mass noted. CVS: Normal heart rate and rhythm. Heart sound normal. No murmurs noted. Pulses normal throughout. Respiratory: No respiratory distress. Painless inspiration. Breath sounds normal. No wheezes/rales/rhonchi noted. Chest nontender. No accessory muscle usage noted or decreased air movement noted. Abdomen: Soft and nontender. Bowel sounds normal in all 4 quadrants. No dist ention noted. No organomegaly noted. No visible injury noted. Back: No CVA tenderness. Full range of motion noted. Skin: Skin warm and dry. Normal skin color. Normal skin turgor. No rashes/lesi ons/lacerations noted. Extremities: No lower extremity edema. Extremities exhibit normal range of motion. Extremities nontender. Neuro: Oriented X 3. Cranial nerve exam: II-XII are grossly intact No motor deficit. No sensory deficit. Reflexes normal. Course Reevaluation(s) Reevaluation #1: Feels better after bronchodilator, will start on prednisone x5 days course, facemask, hand wash, keep social distancing, self quarantine. Time: 04:00 Medical Decision Making Differential Diagnosis Differential Diagnoses: The differential diagnosis associated with the presentation includes (Pneumonia, pneumothorax, pleural effusion, influenza a, RSV, COVID-19 infection.) Admission/Observation Consideration of admission/observation: Escalation of care including admission/observation considered Lab Data MDM Lab Attestation statement: I reviewed the patient's lab results. Labs: Lab Results 07/03/24 Range/Units 01:40 Influenza Type A (PCR) POSITIVE A (Negative) Influenza Type B (PCR) NEGATIVE (Negative) RSV RNA Qual (PCR) NEGATIVE (Negative) SARS-CoV-2 RNA (RT-PCR) NEGATIVE (Negative) S. pyogenes GrpA XAVIER Negative (Negative) Independent Interpretation I performed an independent interpretation of an: Plain X-Ray (Chest:Mild left lower lobe atelectasis. No significant pleural effusion or pneumothorax. Similar prominent/enlarged cardiac silhouette. No acute fracture.) Radiology Impression Discussion of test interpretation with radiology: I have reviewed the radiologist's reading. Discharge Plan Discharge Clinical Impression: Influenza Patient Disposition: Home, Self-Care Instructions: Influenza (ED) Prescriptions: New albuterol sulfate 90 mcg/actuation HFA aerosol inhaler 2 puff inhalation Q6H PRN (Reason: shortness of breath or wheezing) Qty: 8.5 0RF prednisone 10 mg tablet 10 mg PO BID Qty: 10 0RF No Action docusate sodium [Colace] 100 mg capsule 200 mg PO DAILY Qty: 60 0RF polyethylene glycol 3350 [Miralax] 17 gram/dose powder 17 g PO DAILY Qty: 510 0RF phenazopyridine [Pyridium] 200 mg tablet 200 mg PO TID PRN (Reason: pain) Qty: 6 0RF ibuprofen 600 mg tablet 600 mg PO Q8H PRN (Reason: pain) Qty: 30 0RF lorazepam [Ativan] 1 mg tablet 1 mg PO BID PRN (Reason: anxiety) Qty: 8 0RF oxycodone 5 mg capsule 5 mg PO Q8H PRN (Reason: pain) 3 Days Qty: 9 0RF Rx Instructions: Partial Fill upon patient request. Side effects of drowsiness. Not take at work or while driving venlafaxine 150 mg capsule,extended release 24hr 150 mg PO DAILY azelastine 137 mcg (0.1 %) spray,non-aerosol 2 spray intranasal BID fluticasone propionate 50 mcg/actuation spray,suspension 1 spray intranasal BID hydrocortisone 1 % cream with perineal applicator 1 appl topical BID eszopiclone 2 mg tablet 2 mg PO BEDTIME PRN (Reason: insomnia) tramadol 50 mg tablet 50 mg PO Q6H PRN (Reason: severe pain) famotidine 20 mg tablet 20 mg PO BID pantoprazole 40 mg tablet,delayed release (DR/EC) 40 mg PO DAILY buspirone 30 mg tablet 30 mg PO BID loratadine 10 mg capsule 10 mg PO DAILY risperidone [Risperdal] 2 mg tablet 2 mg PO DAILY gabapentin 100 mg capsule 100 mg PO BID Referrals: Daphne Almanza MD [Primary Care Provider] - Print Language: Faroese
--- OUTSIDE RECORDS SUMMARY | 2024-07-03 02:46 | XMS_ITS | Encounter Summary ---
Author Organization [facility] Address [address] [facility] [place] [address] Care Team Providers Care Supervisor Cutting And Sewing Room Name Role Phone Daphne Almanza MD Primary Care Provider [phone] Daphne Almanza MD Unavailable [phone] Encounter Details Date Type Department Care Team Description 06/07/2021 Mass Spectrometry Manager Report Medical Records [address] [place] [address] [place] Hugo Mckeon PA Social History Tobacco [...] filedocumented in this encounter Care Teams Supervisor Cutting And Sewing Room Relationship Specialty Start Date End Date Daphne Almanza MD [address] [place] [address] PCP - General Internal Medicine 07/31/15 Daphne Almanza MD [address] [place] [address] 07/29/15 documented as of this encounter
--- OUTSIDE RECORDS SUMMARY | 2024-07-03 02:46 | XMS_ITS | Encounter Summary ---
Author Organization [facility] Address [address] [place] [address] Care Team Providers Care Air Pollution Analyst Name Role Phone Daphne Almanza MD Primary Care Provider [phone] Daphne Almanza MD Unavailable [phone] Reason for Visit * Reason Onset Date Comments Back Pain 11/04/2022 Encounter Details Date Type Department Care Team Description 11/04/2022 Telephone Orthopedics-[address] [address] Ty Julio PA-C Back Pain Social History [...] on filedocumented in this encounter Care Teams Air Pollution Analyst Relationship Specialty Start Date End Date Daphne Almanza MD [address] [place] [address] PCP - General Internal Medicine 07/31/15 Daphne Almanza MD [address] [place] [address] 07/29/15 documented as of this encounter
--- OUTSIDE RECORDS SUMMARY | 2024-07-03 02:46 | XMS_ITS | Encounter Summary ---
Author Organization [facility] Address [address] [place] [address] Care Team Providers Care Permaculture Contractor Name Role Phone Daphne Almanza MD Primary Care Provider [phone] Daphne Almanza MD Unavailable [phone] Encounter Details Date Type Department Care Team Description 02/09/2021 Release of Information Medical Records [address] [place] [address] Abstract, Provider Social History Tobacco Use Types [...] on filedocumented in this encounter Care Teams Permaculture Contractor Relationship Specialty Start Date End Date Daphne Almanza MD [address] [place] [address] PCP - General Internal Medicine 07/31/15 Daphne Almanza MD [address] [place] [address] 07/29/15 documented as of this encounter
--- OUTSIDE RECORDS SUMMARY | 2024-07-03 02:46 | XMS_ITS | Encounter Summary ---
Author Organization [facility] Address [address] [place] [address] Care Team Providers Care Compound Finisher Name Role Phone Daphne Almanza MD Primary Care Provider [phone] Daphne Almanza MD Unavailable [phone] Encounter Details Date Type Department Care Team Description 12/14/2018 Release of Information Medical Records [address] [place] [address] Abstract, Provider Social History Tobacco Use Types [...] on filedocumented in this encounter Care Teams Compound Finisher Relationship Specialty Start Date End Date Daphne Almanza MD [address] [place] [address] [phone] PCP - General Internal Medicine 07/31/15 Daphne Almanza MD [address] [place] [address] 07/29/15 documented as of this encounter
--- OUTSIDE RECORDS SUMMARY | 2024-07-03 02:46 | XMS_ITS | Encounter Summary ---
Author Organization [facility] Address [address] [place] [address] Care Team Providers Care Wheel Loader Operator Name Role Phone Daphne Almanza MD Primary Care Provider [phone] Daphne Almanza MD Unavailable [phone] Encounter Details Date Type Department Care Team Description 02/24/2021 Check Writer Report Medical Records [address] [place] [address] Abstract, Provider Social History Tobacco Use Types [...] on filedocumented in this encounter Care Teams Wheel Loader Operator Relationship Specialty Start Date End Date Daphne Almanza MD [address] [place] [address] PCP - General Internal Medicine 07/31/15 Daphne Almanza MD [address] [place] [address] 07/29/15 documented as of this encounter
--- OUTSIDE RECORDS SUMMARY | 2024-07-03 02:46 | XMS_ITS | Encounter Summary ---
Author Organization [facility] Address [address] [place] [address] Care Team Providers Care Simplex Printer Installer Name Role Phone Daphne Almanza MD Primary Care Provider [phone] Daphne Almanza MD Unavailable [phone] Reason for Visit * Reason Onset Date Comments Medication 06/22/2021 Encounter Details Date Type Department Care Team Description 06/22/2021 Refill Gastroenterology - [place] [address] [facility] [address] [place] [phone] Pavan Ozuna MD [address] [facility] [address] [place] [address] Medication Social History Tobacco Use Types Packs/Day [...] on filedocumented in this encounter Care Teams Simplex Printer Installer Relationship Specialty Start Date End Date Daphne Almanza MD [address] [place] [address] [phone] PCP - General Internal Medicine 07/31/15 Daphne Almanza MD [address] [place] [address] 07/29/15 documented as of this encounter
--- OUTSIDE RECORDS SUMMARY | 2024-07-03 02:46 | XMS_ITS | Encounter Summary ---
Author Organization [facility] Address [address] [place] [address] Care Team Providers Care Furnace Erector Name Role Phone Daphne Almanza MD Primary Care Provider [phone] Daphne Almanza MD Unavailable [phone] Encounter Details Date Type Department Care Team Description 09/05/2022 Manager Combination Report Medical Records [address] [place] [address] [place] Hugo Mckeon PA Social History Tobacco [...] on filedocumented in this encounter Care Teams Furnace Erector Relationship Specialty Start Date End Date Daphne Almanza MD [address] [place] [address] PCP - General Internal Medicine 07/31/15 Daphne Almanza MD [address] [place] [address] 07/29/15 documented as of this encounter
--- OUTSIDE RECORDS SUMMARY | 2024-07-03 02:46 | XMS_ITS | Encounter Summary ---
Author Organization [facility] Address [address] [place] [address] Care Team Providers Care State Appellate Clerk Name Role Phone Daphne Almanza MD Primary Care Provider [phone] Daphne Almanza MD Unavailable [phone] Encounter Details Date Type Department Care Team Description 06/08/2023 Telephone Adult Medicine [address] [phone] Daphne Almanza MD [address] [place] [address] Social History Tobacco Use Types Packs/Day [...] on filedocumented in this encounter Care Teams State Appellate Clerk Relationship Specialty Start Date End Date Daphne Almanza MD [address] [place] [address] PCP - General Internal Medicine 07/31/15 Daphne Almanza MD [address] [place] [address] 07/29/15 documented as of this encounter
--- OUTSIDE RECORDS SUMMARY | 2024-07-03 02:46 | XMS_ITS | Encounter Summary ---
Author Organization [facility] Address [address] [place] [address] Care Team Providers Care C T Tech Name Role Phone Daphne Almanza MD Primary Care Provider [phone] Daphne Almanza MD Unavailable [phone] Reason for Visit * Reason Onset Date Comments er follow up 07/12/2018 [place] Encounter Details Date Type Department Care Team Description 07/12/2018 Telephone Adult Medicine [facility] [address] [place] [address] [phone] Daphne Almanza MD [address] [place] [address] [phone] er follow up ([place]) Social History Tobacco Use Types Packs/Day Years [...] PA-C Hospital/ center patient was treated at: [facility] Date of visit: 07/10/18 Was this only [...] for pt to return my call Needs [facility] er f/u appt for Fx 5th right metacarpal. documented in this encounter Plan of Treatment Not on file documented as of this encounter Visit Diagnoses Not on filedocumented in this encounter Care Teams C T Tech Relationship Specialty Start Date End Date Daphne Almanza MD [address] [place] [address] PCP - General Internal Medicine 07/31/15 Daphne Almanza MD [address] [place] [address] 07/29/15 documented as of this encounter
--- OUTSIDE RECORDS SUMMARY | 2024-07-03 02:46 | XMS_ITS | Encounter Summary ---
Author Organization [facility] Address [address] [place] [address] Care Team Providers Care Flare Breaker Name Role Phone Daphne Almanza MD Primary Care Provider [phone] Daphne Almanza MD Unavailable [phone] Reason for Visit * Reason Onset Date Comments refill request 11/17/2022 Encounter Details Date Type Department Care Team Description 11/17/2022 Refill Gastroenterology - [place] [address] [phone] Andrew Nino PA-C [address] [address] refill request Social History Tobacco Use Types [...] on filedocumented in this encounter Care Teams Flare Breaker Relationship Specialty Start Date End Date Daphne Almanza MD [address] [place] [address] PCP - General Internal Medicine 07/31/15 Daphne Almanza MD [address] [place] [address] 07/29/15 documented as of this encounter
--- OUTSIDE RECORDS SUMMARY | 2024-07-03 02:46 | XMS_ITS | Encounter Summary ---
Author Organization [facility] Address [address] [place] [address] Care Team Providers Care Marketing Manager Health Communications Name Role Phone Daphne Almanza MD Primary Care Provider [phone] Daphne Almanza MD Unavailable [phone] Reason for Visit * Reason Onset Date Comments TEST RESULTS 09/14/2018 Encounter Details Date Type Department Care Team Description 09/14/2018 Telephone Adult Medicine [facility] [address] [place] [address] [phone] Daphne Almanza MD [address] [place] [address] [phone] TEST RESULTS Social History Tobacco Use Types [...] a call back. Her voicemail was in northern irish so im not sure if she understood. If no answer by the end of the day I will have someone who speaks northern irish call documented in this encounter Plan of Treatment Not on file documented as of this encounter Visit Diagnoses Not on filedocumented in this encounter Care Teams Marketing Manager Health Communications Relationship Specialty Start Date End Date Daphne Almanza MD [address] [place] [address] PCP - General Internal Medicine 07/31/15 Daphne Almanza MD [address] [place] [address] 07/29/15 documented as of this encounter
--- OUTSIDE RECORDS SUMMARY | 2024-07-03 02:46 | XMS_ITS | Encounter Summary ---
Author Organization [facility] Address [address] [place] [address] Care Team Providers Care Informatics Spec Name Role Phone Daphne Almanza MD Primary Care Provider [phone] Daphne Almanza MD Unavailable [phone] Encounter Details Date Type Department Care Team Description 10/13/2020 Table Operator Report Medical Records [address] [place] [address] Jami Padilla MD Social History Tobacco Use [...] on filedocumented in this encounter Care Teams Informatics Spec Relationship Specialty Start Date End Date Daphne Almanza MD [address] [place] [address] [phone] PCP - General Internal Medicine 07/31/15 Daphne Almanza MD [address] [place] [address] 07/29/15 documented as of this encounter
--- OUTSIDE RECORDS SUMMARY | 2024-07-03 02:46 | XMS_ITS | Encounter Summary ---
Author Organization [facility] Address [address] [place] [address] Care Team Providers Care Caramel Candy Maker Name Role Phone Daphne Almanza MD Primary Care Provider [phone] Daphne Almanza MD Unavailable Encounter Details Date Type Department Care Team Description 12/08/2020 Orders Only Medical Records [address] [place] [address] Luz Verduzco MD Social History Tobacco Use Types Packs/Day [...] have Coronavirus / COVID-19? No / Unsure 11/11/2020 2:27 PM EDT documented as of this encounter Plan of Treatment Not on file documented as of this encounter Procedures Procedure Name Priority Date/Time Associated Diagnosis Comments OUTSIDE SLEEP STUDY Routine 12/01/2020 documented in this encounter Results * OUTSIDE SLEEP STUDY (12/01/2020) Luz Verduzco MD PULMONOLOGY documented in this encounter Visit Diagnoses Not on filedocumented in this encounter Care Teams Caramel Candy Maker Relationship Specialty Start Date End Date Daphne Almanza MD [address] [place] [address] PCP - General Internal Medicine 07/31/15 Daphne Almanza MD [address] [place] [address] 07/29/15 documented as of this encounter
--- OUTSIDE RECORDS SUMMARY | 2024-07-03 02:46 | XMS_ITS | Encounter Summary ---
Author Organization [facility] Address [address] [place] [address] Care Team Providers Care Layout Artist Name Role Phone Daphne Almanza MD Primary Care Provider [phone] Daphne Almanza MD Unavailable [phone] Reason for Visit * Reason Comments E-prescribe Rx Request Encounter Details Date Type Department Care Team Description 06/16/2023 Refill Gastroenterology - [place] [address] [phone] Andrew Nino PA-C [address] [address] E-prescribe Rx Request Social History Tobacco Use [...] encounter Miscellaneous Notes * Telephone Encounter - Smiley Higgins M.A. - 06/16/2023 8:54 AM EDT Magda: 02/23/2023 No upcoming documented in this encounter Plan of Treatment Not on file documented as of this encounter Visit Diagnoses Not on filedocumented in this encounter Care Teams Layout Artist Relationship Specialty Start Date End Date Daphne Almanza MD [address] [place] [address] PCP - General Internal Medicine 07/31/15 Daphne Almanza MD [address] [place] [address] 07/29/15 documented as of this encounter
--- OUTSIDE RECORDS SUMMARY | 2024-07-03 02:46 | XMS_ITS | Encounter Summary ---
Author Organization [facility] Address [address] [place] [address] Care Team Providers Care Price Checker Name Role Phone Daphne Almanza MD Primary Care Provider [phone] Daphne Almanza MD Unavailable [phone] Reason for Visit * Reason Onset Date Comments APPOINTMENT 01/04/2023 Encounter Details Date Type Department Care Team Description 01/04/2023 Telephone Gastroenterology - [place] [address] [phone] Andrew Nino PA-C [address] [address] APPOINTMENT Social History Tobacco Use Types Packs/Day Years [...] suspected to have Coronavirus/COVID-19? No / Unsure 01/04/2023 10:50 AM EDT documented as of this encounter Miscellaneous Notes * Telephone Encounter - Miladys Goldberg M.A. - 01/04/2023 1:19 PM EDT Spoke with patient and rescheduled her on 12/27/23 at 11:30a. Mailed letter * Telephone Encounter - Andrew Nino PA-C - 01/04/2023 12:56 PM EDT Unable to keep the appointment as the patient missed it this morning. She can be rescheduled for another telehealth visit but unable to call her back today * Telephone Encounter - Miladys Goldberg M.A. - 01/04/2023 11:59 AM EDT Please advise,Thanks * Telephone Encounter - Denia Jewell - 01/04/2023 11:50 AM EDT PATIENT CALLING THINKS SHE MISSED TELEHEALTH SCHEDULED FOR 11:00 AM, SHE IS WAITING For CT scan at [facility], would andrew be willing to call patient back at the end of day, please advise documented in this encounter Plan of Treatment Not on file documented as of this encounter Visit Diagnoses Not on filedocumented in this encounter Care Teams Price Checker Relationship Specialty Start Date End Date Daphne Almanza MD [address] [place] [phone] PCP - General Internal Medicine 07/31/15 Daphne Almanza MD [address] [place] [phone] 07/29/15 documented as of this encounter
--- OUTSIDE RECORDS SUMMARY | 2024-07-03 02:46 | XMS_ITS | Encounter Summary ---
Author Organization [facility] Address [address] [place] [address] Care Team Providers Care Broker Associate Name Role Phone Daphne Almanza MD Primary Care Provider [phone] Daphne Almanza MD Unavailable [phone] Encounter Details Date Type Department Care Team Description 06/02/2023 Warehouse Associate Report Medical Records [address] [place] [address] Victor Hugo Mckeon PA Social History Tobacco [...] on filedocumented in this encounter Care Teams Broker Associate Relationship Specialty Start Date End Date Daphne Almanza MD [address] [place] [address] [phone] PCP - General Internal Medicine 07/31/15 Daphne Almanza MD [address] [place] [address] 07/29/15 documented as of this encounter
--- OUTSIDE RECORDS SUMMARY | 2024-07-03 02:46 | XMS_ITS | Encounter Summary ---
Author Organization [facility] Address [address] [place] [address] Care Team Providers Care Fishing Floats Assembler Name Role Phone Daphne Almanza MD Primary Care Provider [phone] Daphne Almanza MD Unavailable [phone] Encounter Details Date Type Department Care Team Description 12/05/2018 Hand Tile Maker Report Medical Records [address] [place] [address] Kayode Daniels MD Social History Tobacco Use [...] on filedocumented in this encounter Care Teams Fishing Floats Assembler Relationship Specialty Start Date End Date Daphne Almanza MD [address] [place] [address] PCP - General Internal Medicine 07/31/15 Daphne Almanza MD [address] [place] [address] 07/29/15 documented as of this encounter
--- OUTSIDE RECORDS SUMMARY | 2024-07-03 02:47 | XMS_ITS | Encounter Summary ---
Author Organization [facility] Address [address] [place] [address] Care Team Providers Care Manager Android Name Role Phone Daphne Almanza MD Primary Care Provider [phone] Daphne Almanza MD Unavailable [phone] Reason for Visit * Reason Onset Date Comments EKG 12/26/2023 Encounter Details Date Type Department Care Team Description 12/26/2023 Telephone Cardio [facility] Diag Testing [address] [place] [address] Daphne Almanza MD [address] [place] [address] [phone] EKG Social History Tobacco Use Types Packs/Day Years [...] encounter Miscellaneous Notes * Telephone Encounter - Daphne Almanza MD - 12/26/2023 11:31 AM EDT It was sent to scan on the day of the order * Telephone Encounter - Sandra Kelly - 12/26/2023 11:21 AM EDT [facility] recieved the order for a Stress Test for this patient. However, one of our APPs must review a recent EKG (mentioned in 12/22/23 office note) prior to scheduling. Please scan the EKG into the chart for review. Thank you, [facility] Scheduling documented in this encounter Plan of Treatment Not on file documented as of this encounter Visit Diagnoses Not on filedocumented in this encounter Care Teams Manager Android Relationship Specialty Start Date End Date Daphne Almanza MD [address] [place] [phone] PCP - General Internal Medicine 07/31/15 Daphne Almanza MD [address] [place] [address] 07/29/15 documented as of this encounter
--- OUTSIDE RECORDS SUMMARY | 2024-07-03 02:47 | XMS_ITS | Encounter Summary ---
Author Organization [facility] Address [address] [place] [address] Care Team Providers Care Mechanical Research Engineer Name Role Phone Daphne Almanza MD Primary Care Provider [phone] Daphne Almanza MD Unavailable [phone] Encounter Details Date Type Department Care Team Description 09/25/2017 [place] Printer Report Medical Records [address] [place] [phone] Abstract, Provider Social History Tobacco Use Types [...] on filedocumented in this encounter Care Teams Mechanical Research Engineer Relationship Specialty Start Date End Date Daphne Almanza MD [address] [place] [address] [phone] PCP - General Internal Medicine 07/31/15 Daphne Almanza MD [address] [place] [address] [phone] 07/29/15 documented as of this encounter
--- OUTSIDE RECORDS SUMMARY | 2024-07-03 02:47 | XMS_ITS | Encounter Summary ---
Author Organization [facility] Address [address] [place] [address] Care Team Providers Care Sales Mgr Name Role Phone Daphne Almanza MD Primary Care Provider [phone] Encounter Details Date Type Department Care Team (Late st Contact Info) Description 01/01/2024 2:30 PM EDT Hospital Encounter TH HISTORIC ENCOUNTERS [facility] ONLY Daphne Almanza MD [address] [place] [address] Social History Tobacco Use Types Packs/Day Years [...] care for your loved ones. For example, housekeeper child care or elderly care for an older adult? [...] 07/15/2024 2:00 PM EDT Office Visit Urogynecology [address] [phone] Kym Christine MD [address] [place] [address] 07/18/2024 1:30 PM EDT Office Visit Adult Medicine [facility] [address] [place] [address] Mavis Osborn PA [address] [place], [place] documented as of this encounter Visit Diagnoses Not on filedocumented in this encounter Care Teams Sales Mgr Relationship Specialty Start Date End Date Daphne Almanza MD [address] [place] [address] PCP - General Internal Medicine 11/30/13 documented as of this encounter
--- OUTSIDE RECORDS SUMMARY | 2024-07-03 02:47 | XMS_ITS | Encounter Summary ---
Author Organization [facility] Address [address] [place] [address] Care Team Providers Care Medical Claims Processor Name Role Phone Daphne Almanza MD Primary Care Provider [phone] Daphne Almanza MD Unavailable [phone] Encounter Details Date Type Department Care Team Description 09/16/2016 Orders Only Gastroenterology - [address] [address] Ron Branch PA-C Epigastric abdominal pain Social [...] ANALYSIS (09/07/2016) 09/07/2016 Ron Branch PA-C LAB [facility] [employer] documented in this encounter Visit Diagnoses Diagnosis Epigastric abdominal pain Abdominal pain, epigastric documented in this encounter Care Teams Medical Claims Processor Relationship Specialty Start Date End Date Daphne Almanza MD [address] [place] [phone] PCP - General Internal Medicine 07/31/15 Daphne Almanza MD [address] [place] [address] 07/29/15 documented as of this encounter
--- OUTSIDE RECORDS SUMMARY | 2024-07-03 02:47 | XMS_ITS | Encounter Summary ---
Author Organization [facility] Address [address] [place] [address] Care Team Providers Care Clarifier Operator Name Role Phone Daphne Almanza MD Primary Care Provider [phone] Daphne Almanza MD Unavailable [phone] Reason for Referral * Non CATRACHITA (Routine) - Authorized/Booked Specialty Diagnoses / Procedures Referred By Radha olsen Referred To Contact Endocrinology Diagnoses Thyroid nodule Procedures REFERRAL TO ENDOCRINOLOGY Mavis Osborn PA-C [address] [place] [id number] [address] Referral ID Status Reason Start Date Expiration Date V isits Requested Visits Authorized [id number] LTR 05/17 Authorized/ Booked 05/09/2017 05/09/2018 1 1 Encounter Details Date Type Department Care Team Description 05/09/2017 Orders Only Adult Medicine [address] [address] Mavis Osborn PA-C [address] [place] [phone] Thyroid nodule Social History Tobacco Use Types Packs/Day Years [...] as of this encounter Visit Diagnoses Diagnosis Thyroid nodule Nontoxic uninodular goiter documented in this encounter Care Teams Clarifier Operator Relationship Specialty Start Date End Date Daphne Almanza MD [address] [place] [phone] PCP - General Internal Medicine 07/31/15 Daphne Almanza MD [address] [place] [address] 07/29/15 documented as of this encounter
--- OUTSIDE RECORDS SUMMARY | 2024-07-03 02:47 | XMS_ITS | Encounter Summary ---
Author Organization [facility] Address [address] [place] [address] Care Team Providers Care Hospitality Recruiter Name Role Phone Daphne Almanza MD Primary Care Provider [phone] Daphne Almanza MD Unavailable [phone] Encounter Details Date Type Department Care Team Description 10/29/2022 [facility] [address] [place] [phone] Social History Tobacco Use Types Packs/Day Years [...] on filedocumented in this encounter Care Teams Hospitality Recruiter Relationship Specialty Start Date End Date Daphne Almanza MD [address] [place] [address] [phone] PCP - General Internal Medicine 07/31/15 Daphne Almanza MD [address] [place] [address] 07/29/15 documented as of this encounter
--- OUTSIDE RECORDS SUMMARY | 2024-07-03 02:47 | XMS_ITS | Encounter Summary ---
Author Organization [facility] Address [address] [place] [address] Care Team Providers Care Methods Study Analyst Name Role Phone Daphne Almanza MD Primary Care Provider [phone] Daphne Almanza MD Unavailable [phone] Reason for Visit * Reason Onset Date Comments Faxed Order 04/20/2022 [facility] Encounter Details Date Type Department Care Team Description 04/20/2022 Telephone Adult Medicine [address] [phone] Daphne Almanza MD [address] [place] [address] [phone] Faxed Order ([facility] ) [...] on filedocumented in this encounter Care Teams Methods Study Analyst Relationship Specialty Start Date End Date Daphne Almanza MD [address] [place] [phone] PCP - General Internal Medicine 07/31/15 Daphne Almanza MD [address] [place] [address] 07/29/15 documented as of this encounter
--- OUTSIDE RECORDS SUMMARY | 2024-07-03 02:47 | XMS_ITS | Clinical Summary ---
Author Organization [facility] [address] [place] [address] Address [address] [facility] [place] Phone Care Team Providers Care Poultry Picking Machine Tender Name Role Phone Daphne Almanza MD Primary Care Provider [phone] Allergies Active Allergy Reactions Criticality Noted Date [...] 07/13/2021 Obstructive sleep apnea 05/24/2021 Overview (03/08/2024): [facility] Home sleep test 05/13/2021; weight 155; BMI 27; AHI 6, AI 1, HI 5. 7 obstructive apneas, 1 central apnea and 31 hypopneas. Average oxygen saturation 95% with oxygen graciela 85%. Obstructive sleep apnea-mild with mostly hypopneas and some obstructive and central apneas without nocturnal hypoxemia based on 2021 home sleep test. Fibromyalgia 12/27/2019 Overview (03/08/2024): Dr. Padilla ([facility]) Bilateral carpal tunnel syndrome 05/09/2018 Overview (03/08/2024): S/p release on left side only Overweight (BMI 25.0-29.9) 05/09/2018 Panic attack 05/09/2018 Overview (03/08/2024): Dr. Kumar at [facility] Right ovarian cyst 05/09/2018 Overview (03/08/2024): [...] depression 08/14/2015 Overview (03/08/2024): Dr. Kumar at [facility] Asthma 08/14/2015 GERD (gastroesophageal reflux disease) 6 Encounters Date Type Department Care Team Description 05/27/2024 Telephone Gastroenterology [facility] [address] [phone] Andrew Nino PA Provider Call Back 05/20/2024 9:54 AM EST - 05/20/2024 11:59 PM EST Hospital Encounter Radiology Department - [address] [phone] Breast pain Discharge Disposition: Home or Self Care 05/20/2024 9:54 AM EST - 05/20/2024 11:59 PM EST Hospital Encounter Radiology Department - [address] [phone] Pain of both breasts Discharge Disposition: Home or Self Care 05/09/2024 Telephone Gastroenterology [facility] [address] [phone] Andrew Nino PA Medication Problem 05/07/2024 10:15 AM EST Office Visit Adult Medicine [address] [phone] Mavis Osborn PA Pain of both breasts (Primary Dx) 05/07/2024 Telephone Adult Medicine [address] [phone] Rhiannon Kumar [place] Appointment 05/06/2024 9:20 AM EST Office Visit Gastroenterology - [place] [address] [phone] Andrew Nino PA Dyspepsia (Primary Dx); Bloating; Enteritis; Rectal irritation; Vascular abnormality 05/01/2024 Telephone Gastroenterology - [place] [address] [facility] [address] [phone] Andrew Nino PA 04/30/2024 Telephone Gastroenterology [facility] [address] [phone] Andrew Nino PA 04/29/2024 Telephone Gastroenterology [facility] [address] [phone] Andrew Nino PA Medication Problem 04/26/2024 4:16 PM EST - 04/26/2024 11:59 PM EST Hospital Encounter [facility] CT Scan [address] [place] [phone] Diverticulosis; H/O diverticulitis of colon; LLQ pain; Elevated liver enzymes; Gastroesophageal reflux disease without esophagitis; Rectal irritation Discharge Disposition: Home or Self Care 04/25/2024 10:45 AM EST Office Visit Obstetrics and Gynecology [address] [phone] Maria Victoria Ellington MD Pelvic pressure in female (Primary Dx); Vaginal pain 04/18/2024 7:25 AM EST - 04/18/2024 10:[address] [facility] Emergency [address] [place] [phone] Ralph Menard MD Vaginal pain (Primary Dx); Rectal pain Discharge Disposition: Home or Self Care 04/15/2024 3:00 PM EST Office Visit Adult Medicine [address] [phone] Stephanie Barragan PA Pelvic pressure in female (Primary Dx); Decreased GFR; Elevated LFTs; Diverticulitis; Rectal pain 04/12/2024 1:20 PM EST Office Visit Gastroenterology - [place] [address] [facility] [address] [place] [phone] Andrew Nino PA Diverticulosis (Primary Dx); H/O diverticulitis of colon; LLQ pain; Elevated liver enzymes; Gastroesophageal reflux disease without esophagitis; Rectal irritation 04/11/2024 Telephone Adult Medicine [facility] - [address] [phone] Daphne Almanza MD er follow up ([facility] /04/10/24) 04/08/2024 Telephone Obstetrics and Gynecology [address] [phone] Maria Victoria Ellington MD er follow up from Last 3 Months Immunizations Name Administration Dates Next Due Influenza Quadravalent, MDCK , 0.5ml, preservative free (Flucelvax) 6mo and older 02/06/2023,12/21/2021,03/04/2021,02/10 Influenza trivalent, 0.5mL, preservative free (Fluarix; FluLaval; Fluzone) ages 6mo and older (Afluria) 3 years and older 12/08/2023,03/10/2019,02/19/2013,01/12 Influenza trivalent, with pr eservative (Fluzone; Afluria) 6mo and older 05/11/2016,03/04/2015 [employer] SARS-CoV-2 COVID -19, vector-nr, rS-Ad26, preservative free [...] PROCEDURE: HISTORICAL TUBAL LIGATION ESOPHAGOGASTRODUODENOSCOPY 08/20/2015 PROCEDURE: OK ESOPHAGOGASTRODUODENOSCOPY TRANSORAL DIAGNOSTIC; COMMENT: Dr. De La Rosa - small H/H o/w normal. COLONOSCOPY 04/20/2012 PROCEDURE: HISTORICAL COLONOSCOPY; COMMENT: [facility] - normal CARPAL TUNNEL RELEASE Left PROCEDURE: HISTORICAL CARPAL TUNNEL REL ESOPHAGOGASTRODUODENOSCOPY PROCEDURE: OK EGD TRANSORAL BIOPSY SINGLE/MULTIPLE; COMMENT: 08/2019 with [...] 07/15/2024 2:00 PM EDT Office Visit Urogynecology [address] [phone] Kym Christine MD [address] [place] [address] 07/18/2024 1:30 PM EDT Office Visit Adult Medicine [facility] - [address] [phone] Mavis Osborn PA [address] [place] [address] Health Maintenance Due Date Last Done Comments [...] is recommended in 1 year. MAMMO LOCATION: [facility], [address] [place] [address], [address], . -------- FINAL REPORT -------- Dictated By: Deja Staley Dictated Date: 05/20/2024 10:36 ET Assigned Physician: Deja Staley Reviewed and Electronically Signed By: Deja Staley Signed Date: 05/20/2024 10:43 ET Workstation ID: [id number] Transcribed By: Self Edit Transcribed Date: 05/20/2024 [...] is recommended in 1 year. MAMMO LOCATION: [facility], [address] [place] [address], [address], . -------- FINAL REPORT -------- Dictated By: Deja Staley Dictated Date: 05/20/2024 10:36 ET Assigned Physician: Deja Staley Reviewed and Electronically Signed By: Deja Staley Signed Date: 05/20/2024 10:43 ET Workstation ID: [id number] Transcribed By: Self Edit Transcribed Date: 05/20/2024 [...] is recommended in 1 year. MAMMO LOCATION: [facility], [address] [place] [address], [address], . -------- FINAL REPORT -------- Dictated By: Deja Staley Dictated Date: 05/20/2024 10:36 ET Assigned Physician: Deja Staley Reviewed and Electronically Signed By: Deja Staley Signed Date: 05/20/2024 10:43 ET Workstation ID: [id number] Transcribed By: Self Edit Transcribed Date: 05/20/2024 [...] is recommended in 1 year. MAMMO LOCATION: [facility], [address] [place] [address], [address], . -------- FINAL REPORT -------- Dictated By: Deja Staley Dictated Date: 05/20/2024 10:36 ET Assigned Physician: Deja Staley Reviewed and Electronically Signed By: Deja Staley Signed Date: 05/20/2024 10:43 ET Workstation ID: [id number] Transcribed By: Self Edit Transcribed Date: 05/20/2024 [...] Signed Date: 04/26/2024 17:15 ET Workstation ID: [id number] Transcribed By: Self Edit Transcribed Date: 04/26/2024 [...] Signed Date: 04/26/2024 17:15 ET Workstation ID: [id number] Transcribed By: Self Edit Transcribed Date: 04/26/2024 17:11 ET us Andrew CORNELIUS IM CT PROCEDURES Final Result * (ABNORMAL) Urinalysis with reflex microscopic and culture (04/18/2024 8:09 AM EST) Only the most recent of2 resultswithin the time period is included. Specific [place] Urine 1.017 1.003 - 1.030 LAB URINALYSIS - AUTOMATED METHOD 04/18/2024 8:35 AM [facility] pH, Urine 6.5 5.0 - 8.0 pH LAB URINALYSIS - AUTOMATED METHOD 04/18/2024 8:35 AM [facility] Leukocytes, Urine Trace(A) Negative LAB URINALYSIS - AUTOMATED METHOD 04/18/2024 8:35 AM [facility] Nitrite, Urine Negative Negative LAB URINALYSIS - AUTOMATED METHOD 04/18/2024 8:35 AM [facility] Protein, Urine Negative <=Trace mg/dL LAB URINALYSIS - AUTOMATED METHOD 04/18/2024 8:35 AM [facility] Glucose, Urine Negative Negative mg/dL LAB URINALYSIS - AUTOMATED METHOD 04/18/2024 8:35 AM [facility] Ketones, Urine Negative Negative mg/dL LAB URINALYSIS - AUTOMATED METHOD 04/18/2024 8:35 AM [facility] Urobilinogen, Urine 0.2 0.2 - 1.0 mg/dL LAB URINALYSIS - AUTOMATED METHOD 04/18/2024 8:35 AM [facility] Bilirubin, Urine Negative Negative LAB URINALYSIS - AUTOMATED METHOD 04/18/2024 8:35 AM [facility] Blood, Urine Negative Negative LAB URINALYSIS - AUTOMATED METHOD 04/18/2024 8:35 AM [facility] RBC, Urine 4.3(H) 0 - 4 /HPF LAB URINALYSIS - AUTOMATED METHOD 04/18/2024 8:35 AM [facility] WBC, Urine 2.3 0 - 4 /HPF LAB URINALYSIS - AUTOMATED METHOD 04/18/2024 8:35 AM [facility] Squamous Epithelial, Urine 17 0 - 60 /LPF LAB URINALYSIS - AUTOMATED METHOD 04/18/2024 8:35 AM [facility] Bacteria, Urine Negative Negative /HPF LAB URINALYSIS - AUTOMATED METHOD 04/18/2024 8:35 AM [facility] Hyaline Casts, Urine 0.0 0 - 3 /LPF LAB URINALYSIS - AUTOMATED METHOD 04/18/2024 8:35 AM [facility] Urine Urine specimen obtained by clean catch procedure / Unknown Non-blood Collection / Unknown 04/18/2024 8:09 AM EST 04/18/2024 8:28 AM EST us Marleny CORNELIUS LAB URINE ORDERABLES Final Re sult [facility] [address] [place] [address], * Forrest urine culture tube (04/18/2024 8:09 AM EST) Only the most recent of2 resultswithin the time period is included. Extra Tube Hold for add-ons. 04/18/2024 10:01 AM EST [facility] Comment:Auto resulted. Urine Urine specimen obtained by clean catch procedure / Unknown Non-blood Collection / Unknown 04/18/2024 8:09 AM EST 04/18/2024 8:28 AM EST us Marleny CORNELIUS LAB URINE ORDERABLES Final Re sult Performing Organization Address [facility]/ZIP Co de Phone Number [facility] [address] [place] [address], [place] [phone] * Culture urine (04/18/2024 8:09 AM EST) Culture, Urine No growth 04/19/2024 9:01 AM EST [facility] Urine Urine specimen obtained by clean catch procedure / Unknown Non-blood Collection / Unknown 04/18/2024 8:09 AM EST 04/18/2024 8:35 AM EST us Marleny CORNELIUS LAB MICROBIOLOGY - GENERAL OR DERABLES Final Result Performing Organization Address City/[facility]/ZIP Co de Phone Number [facility] [address] [place] [address], [place] [phone] * Trichomonas vaginalis antigen (04/18/2024 8:00 AM EST) Trichomonas vaginalis Negative Negative 04/18/2024 10:12 AM EST [facility] Swab Vaginal structure / Unknown Non-blood Collection / Unknown 04/18/2024 8:00 AM EST 04/18/2024 8:27 AM EST us Marleny CORNELIUS LAB MICROBIOLOGY - GENERAL OR DERABLES Final Result Performing Organization Address [facility]/ZIP Co de Phone Number [facility] [address] [place] [address], [place] [phone] * Chlamydia trachomatis and Neisseria gonorrhoeae molecular study (04/18/2024 8:00 AM EST) Neisseria gonorrhoeae PCR Negative Negative LAB MOLECULAR DIAGNOSTICS METHOD 04/18/2024 10:50 AM EST [facility] Chlamydia trachomatis PCR Negative Negative LAB MOLECULAR DIAGNOSTICS METHOD 04/18/2024 10:50 AM EST [facility] Swab Vaginal structure / Unknown Non-blood Collection / Unknown 04/18/2024 8:00 AM EST 04/18/2024 8:27 AM EST us Marleny CORNELIUS LAB MICROBIOLOGY - GENERAL OR DERABLES Final Result Performing Organization Address [facility] Co de Phone Number [facility] [address] [place] [address], [place] [phone] * Wet prep, genital (04/18/2024 8:00 AM EST) Clue Cells, Wet Prep Negative Negative 04/18/2024 10:13 AM EST [facility] Yeast, Wet Prep Negative Negative 04/18/2024 10:13 AM EST [facility] Trichomonas, Wet Prep Indeterminate Negative 04/18/2024 10:13 AM EST [facility] Comment:Refer to Trichomonas antigen. Swab Vaginal structure / Unknown Non-blood Collection / Unknown 04/18/2024 8:00 AM EST 04/18/2024 8:27 AM EST us Marleny CORNELIUS LAB MICROBIOLOGY - GENERAL OR DERABLES Final Result Performing Organization Address City/[facility]/ZIP Co de Phone Number [facility] [address] [place] [address], [place] [phone] * (ABNORMAL) CBC auto differential (04/17/2024 9:48 PM EST) Only the most recent of2 resultswithin the time period is included. [facility] Signature WBC 9.4 4.8 - 10.8 K/mcL LAB HEMETOLOGY METHOD 04/17/2024 10:28 PM [facility] RBC 4.30 3.80 - 4.80 M/mcL LAB HEMETOLOGY METHOD 04/17/2024 10:28 PM [facility] Hemoglobin 12.9 11.5 - 16.0 g/dL LAB HEMETOLOGY METHOD 04/17/2024 10:28 PM [facility] Hematocrit 39.4 35.0 - 47.0 % LAB HEMETOLOGY METHOD 04/17/2024 10:28 PM [facility] MCV 92.5 79.0 - 98.0 FL LAB HEMETOLOGY METHOD 04/17/2024 10:28 PM [facility] MCH 30.3 27.0 - 32.0 pcg LAB HEMETOLOGY METHOD 04/17/2024 10:28 PM [facility] MCHC 32.7 32.0 - 37.0 g/dL LAB HEMETOLOGY METHOD 04/17/2024 10:28 PM [facility] RDW 13.7 11.0 - 15.0 % LAB HEMETOLOGY METHOD 04/17/2024 10:28 PM [facility] Platelets 255 130 - 400 K/mcL LAB HEMETOLOGY METHOD 04/17/2024 10:28 PM [facility] MPV 10.9 7.0 - 11.0 FL LAB HEMETOLOGY METHOD 04/17/2024 10:28 PM [facility] NRBC 0.0 <1.0 % LAB HEMETOLOGY METHOD 04/17/2024 10:28 PM [facility] NRBC Absolute 0.00 <0.10 K/mcL LAB HEMETOLOGY METHOD 04/17/2024 10:28 PM [facility] Neutrophils Relative 73.0 % LAB HEMETOLOGY METHOD 04/17/2024 10:28 PM [facility] Lymphocytes Relative 17.2 % LAB HEMETOLOGY METHOD 04/17/2024 10:28 PM [facility] Monocytes Relative 7.1 % LAB HEMETOLOGY METHOD 04/17/2024 10:28 PM [facility] Eosinophils Relative 1.6 % LAB HEMETOLOGY METHOD 04/17/2024 10:28 PM [facility] Basophils Relative 0.7 % LAB HEMETOLOGY METHOD 04/17/2024 10:28 PM [facility] Immature Granulocytes Relative 0.4 % LAB HEMETOLOGY METHOD 04/17/2024 10:28 PM [facility] Neutrophils Absolute 6.83 1.50 - 7.00 K/mcL LAB HEMETOLOGY METHOD 04/17/2024 10:28 PM [facility] Lymphocytes Absolute 1.61 1.00 - 5.00 K/mcL LAB HEMETOLOGY METHOD 04/17/2024 10:28 PM [facility] Monocytes Absolute 0.66 0.20 - 1.00 K/mcL LAB HEMETOLOGY METHOD 04/17/2024 10:28 PM [facility] Eosinophils Absolute 0.15 0.00 - 0.50 K/mcL LAB HEMETOLOGY METHOD 04/17/2024 10:28 PM [facility] Basophils Absolute 0.07 0.00 - 0.20 K/mcL LAB HEMETOLOGY METHOD 04/17/2024 10:28 PM [facility] Immature Granulocytes Absolute 0.04(H) 0.00 - 0.03 K/mcL LAB HEMETOLOGY METHOD 04/17/2024 10:28 PM [facility] Blood Venous blood specimen / Unknown Venipuncture / Unknown 04/17/2024 9:48 PM EST 04/17/2024 10:17 PM EST Liban Santo LAB BLOOD ORDERABLES Final Resu lt Performing Organization Address [facility]/ZIP Co de Phone Number [facility] [address] [place] [address], [place] [phone] * Lipase (04/17/2024 9:48 PM EST) Lipase 54 13 - 75 unit/L LAB CHEMISTRY METHOD 04/17/2024 10:45 PM EST [facility] Blood Venous blood specimen / Unknown Venipuncture / Unknown 04/17/2024 9:48 PM EST 04/17/2024 10:17 PM EST Liban Sims [facility] LAB BLOOD ORDERABLES Final Resu lt Performing Organization Address [facility]/ZIP Co de Phone Number [facility] [address] [place] [address], [place] [phone] * (ABNORMAL) Comprehensive metabolic panel (04/17/2024 9:48 PM EST) Only the most recent of2 resultswithin the time period is included. Sodium 139 133 - 145 mmol/L LAB CHEMISTRY METHOD 04/17/2024 10:48 PM EST [facility] Potassium 4.8 3.5 - 5.5 mmol/L LAB CHEMISTRY METHOD 04/17/2024 10:48 PM [facility] Chloride 107 96 - 110 mmol/L LAB CHEMISTRY METHOD 04/17/2024 10:48 PM [facility] CO2 30 21 - 32 mmol/L LAB CHEMISTRY METHOD 04/17/2024 10:48 PM [facility] Anion Gap 2(L) 3 - 11 LAB CHEMISTRY METHOD 04/17/2024 10:48 PM [facility] Glucose 103(H) 70 - 100 mg/dL LAB CHEMISTRY METHOD 04/17/2024 10:48 PM [facility] BUN 17 5 - 25 mg/dL LAB CHEMISTRY METHOD 04/17/2024 10:48 PM [facility] Creatinine 0.97 0.50 - 1.10 mg/dL LAB CHEMISTRY METHOD 04/17/2024 10:48 PM [facility] eGFR 66 >=60 mL/min/1. 73m2 LAB CHEMISTRY METHOD 04/17/2024 10:48 PM [facility] Comment:Calculation based on the??Chronic Kidney Disease Epidemiology Collaboration (CKD-EPI) equation refit??without adjustment for race. BUN/Creatinine Ratio 17.5 LAB CHEMISTRY METHOD 04/17/2024 10:48 PM [facility] Calcium 9.6 8.5 - 10.5 mg/dL LAB CHEMISTRY METHOD 04/17/2024 10:48 PM [facility] AST (SGOT) 28 10 - 42 unit/L LAB CHEMISTRY METHOD 04/17/2024 10:48 PM [facility] ALT (SGPT) 40 10 - 60 unit/L LAB CHEMISTRY METHOD 04/17/2024 10:48 PM [facility] Alkaline Phosphatase 94 42 - 121 unit/L LAB CHEMISTRY METHOD 04/17/2024 10:48 PM [facility] Total Protein 7.9 6.0 - 8.0 g/dL LAB CHEMISTRY METHOD 04/17/2024 10:48 PM [facility] Albumin 4.0 3.2 - 5.0 g/dL LAB CHEMISTRY METHOD 04/17/2024 10:48 PM [facility] Total Bilirubin 0.3 0.0 - 1.4 mg/dL LAB CHEMISTRY METHOD 04/17/2024 10:48 PM [facility] Blood Venous blood specimen / Unknown Venipuncture / Unknown 04/17/2024 9:48 PM EST 04/17/2024 10:17 PM EST us Liban Santo DO LAB BLOOD ORDERABLES Final Resu lt [facility] [address] [place] [address], [place] [phone] * Bilirubin duplicate procedure to order (04/12/2024 2:15 PM EST) Total Bilirubin 0.4 0.0 - 1.4 mg/dL LAB CHEMISTRY METHOD 04/12/2024 10:21 PM EST [facility] Bilirubin, Direct 0.1 0.0 - 0.3 mg/dL LAB CHEMISTRY METHOD 04/12/2024 10:21 PM EST [facility] Bilirubin, Indirect 0.3 0.0 - 1.1 mg/dL LAB CHEMISTRY METHOD 04/12/2024 10:21 PM EST [facility] Blood Venous blood specimen / Unknown Venipuncture / Unknown 04/12/2024 2:15 PM EST 04/12/2024 2:15 PM EST Mavis CORNELIUS LAB BLOOD ORDERABLES Final Re sult [facility] [address] [place] [address], [place] [phone] * (ABNORMAL) Lipid panel with reflex to direct LDL (04/12/2024 2:15 PM EST) Cholesterol 210(H) 0 - 200 mg/dL LAB CHEMISTRY METHOD 04/12/2024 10:21 PM EST [facility] Triglycerides 153(H) 0 - 150 mg/dL LAB CHEMISTRY METHOD 04/12/2024 10:21 PM EST [facility] HDL 46 >=40 mg/dL LAB CHEMISTRY METHOD 04/12/2024 10:21 PM EST [facility] LDL Calculated 133(H) 0 - 100 mg/dL LAB CHEMISTRY METHOD 04/12/2024 10:21 PM [facility] VLDL Cholesterol Abdiel 30.6 mg/dL LAB CHEMISTRY METHOD 04/12/2024 10:21 PM [facility] Non HDL Chol. (LDL+VLDL) 164(H) <145 mg/dL LAB CHEMISTRY METHOD 04/12/2024 10:21 PM [facility] Chol/HDL Ratio 4.6(H) 0.0 - 4.4 LAB CHEMISTRY METHOD 04/12/2024 10:21 PM [facility] Blood Venous blood specimen / Unknown Venipuncture / Unknown 04/12/2024 2:15 PM EST 04/12/2024 2:15 PM EST us Andrew CORNELIUS LAB BLOOD ORDERABLES Final Resu lt Performing Organization Address City/[facility]/ZIP Co de Phone Number [facility] [address] [place] [address], [place] [phone] * Iron (04/12/2024 2:15 PM EST) Pathologist [facility] Iron 90 40 - 150 mcg/dL LAB CHEMISTRY METHOD 04/12/2024 10:21 PM [facility] Blood Venous blood specimen / Unknown Venipuncture / Unknown 04/12/2024 2:15 PM EST 04/12/2024 2:15 PM EST us Andrew CORNELIUS LAB BLOOD ORDERABLES Final Resu lt [facility] [address] [place] [address], [place] [phone] * Ferritin (04/12/2024 2:15 PM EST) Ferritin 93 8 - 252 ng/mL LAB CHEMISTRY METHOD 04/12/2024 10:21 PM EST [facility] Blood Venous blood specimen / Unknown Venipuncture / Unknown 04/12/2024 2:15 PM EST 04/12/2024 2:15 PM EST Andrew CORNELIUS LAB BLOOD ORDERABLES Final Resu lt [facility] [address] [place] [address], * Depression Screening (04/05/2023) Depression Screening Abstracted Historical Provider HEALTH MAINTENANCE Final Result * Colonoscopy (07/06/2021) Colonoscopy No Interpretation , Abstracted Anatomical Region Laterality Modality Other Historical Provider HEALTH MAINTENANCE Final Result * Hepatitis C Screening (06/11/2018) Hepatitis C Screening Abstracted Historical Provider HEALTH MAINTENANCE Final Result from Last 3 Months or Most Recently Relevant to Health Maintenance Insurance [place] [address] [place] [address] Care Teams Poultry Picking Machine Tender Relationship Specialty Start Date End Date Daphne Almanza MD [address] [place] [id number] PCP - General Internal Medicine 11/30/13
--- OUTSIDE RECORDS SUMMARY | 2024-07-03 02:47 | XMS_ITS | Encounter Summary ---
Author Organization [facility] Address [address] [place] [address] Care Team Providers Care Exchange Floor Manager Name Role Phone Daphne Almanza MD Primary Care Provider [phone] Daphne Almanza MD Unavailable [phone] Reason for Visit * Reason Onset Date Comments Headache 02/19/2018 Encounter Details Date Type Department Care Team Description 02/19/2018 Telephone Adult Medicine [facility] [address] [place] [address] [phone] Daphne Almanza MD [address] [place] [address] [phone] Headache Social History Tobacco Use Types Packs/Day Years [...] Telephone Encounter - Odilia Arrington L.P.N. - 02/19/2018 4:29 PM EST Pt has been getting headaches 1 week,no n/v ,gets blurred vision ,pain is a 10 on a scale of 1-10 ,pt has that kind of headache right now ,advised er visit ,she agreed and will go to [facility] * Telephone Encounter - Kai Whitney - 02/19/2018 4:26 PM EST Symptoms patient is presenting: patient's eyes have been watering and she is getting headaches every few hours If pain or injury related was it due to an accident at work or from a motor vehicle accident? NO If yes, gather [employer] insurance information Date of accident/Injury: How long has patient had these symptoms?: PCP: Daphne Almanza Payor: [employer] FFS / Plan: [employer] / Product Type: MEDICAID RISK documented in this encounter Plan of Treatment Not on file documented as of this encounter Visit Diagnoses Not on filedocumented in this encounter Care Teams Exchange Floor Manager Relationship Specialty Start Date End Date Daphne Almanza MD [address] [place] [address] [phone] PCP - General Internal Medicine 07/31/15 Daphne Almanza MD [address] [place] [phone] 07/29/15 documented as of this encounter
--- OUTSIDE RECORDS SUMMARY | 2024-07-03 02:47 | XMS_ITS | Encounter Summary ---
Author Organization [facility] Address [address] [place] [address] Care Team Providers Care Refrigerator Glazier Name Role Phone Daphne Almanza MD Primary Care Provider [phone] Daphne Almanza MD Unavailable [phone] Reason for Visit * Reason Onset Date Comments REFERRAL 05/25/2017 Encounter Details Date Type Department Care Team Description 05/25/2017 Telephone Endocrinology - [address] [address] Master Tubbs MD REFERRAL Social History Tobacco [...] on filedocumented in this encounter Care Teams Refrigerator Glazier Relationship Specialty Start Date End Date Daphne Almanza MD [address] [place] [address] PCP - General Internal Medicine 07/31/15 Daphne Almanza MD [address] [place] [address] 07/29/15 documented as of this encounter
--- OUTSIDE RECORDS SUMMARY | 2024-07-03 02:47 | XMS_ITS | Encounter Summary ---
Author Organization [facility] Address [address] [place] [address] Care Team Providers Care Patrol Lady Name Role Phone Daphne Almanza MD Primary Care Provider [phone] Daphne Almanza MD Unavailable [phone] Reason for Visit * Reason Onset Date Comments Testing 01/17/2024 Encounter Details Date Type Department Care Team Description 01/17/2024 Telephone Cardio PVC POC [address] [place] [address] [address] [place] [address] Daphne Almanza MD [address] [place] [address] [phone] Testing Social History Tobacco Use Types Packs/Day Years [...] Telephone Encounter - Daphne Almanza MD - 01/17/2024 3:36 PM EDT the ekg was sent to scan and I do not have a copy * Telephone Encounter - Sandra Kelly - 01/17/2024 2:49 PM EDT [facility] recieved the order for a Stress Test for this patient. However, one of our APPs must review a recent EKG (mentioned in 12/22/23 office note) prior to scheduling. Please scan the EKG into the chart for review. Thank you, [facility] Scheduling documented in this encounter Plan of Treatment Not on file documented as of this encounter Visit Diagnoses Not on filedocumented in this encounter Care Teams Patrol Lady Relationship Specialty Start Date End Date Daphne Almanza MD [address] [place] [phone] PCP - General Internal Medicine 07/31/15 Daphne Almanza MD [address] [place] [phone] 07/29/15 documented as of this encounter
--- OUTSIDE RECORDS SUMMARY | 2024-07-03 02:47 | XMS_ITS | Encounter Summary ---
Author Organization [facility] Address [address] [facility] [place] [address] Care Team Providers Care Manager Video Name Role Phone Daphne Almanza MD Primary Care Provider [phone] Daphne Almanza MD Unavailable [phone] Encounter Details Date Type Department Care Team Description 05/27/2016 Release of Information Medical Records [address] [place] [address] Abstract, Provider Social History Tobacco Use Types [...] filedocumented in this encounter Care Teams Manager Video Relationship Specialty Start Date End Date Daphne Almanza MD [address] [place] [address] [phone] PCP - General Internal Medicine 07/31/15 Daphne Almanza MD [address] [place] [address] [phone] 07/29/15 documented as of this encounter
--- OUTSIDE RECORDS SUMMARY | 2024-07-03 02:47 | XMS_ITS | Encounter Summary ---
Author Organization [facility] Address [address] [place] [address] Care Team Providers Care Xerox Machine Assembler Name Role Phone Daphne Almanza MD Primary Care Provider [phone] Daphne Almanza MD Unavailable [phone] Reason for Visit * Reason Onset Date Comments refill request 2019 Encounter Details Date Type Department Care Team Description [address] [facility] [address] [place] [address] [phone] Daphne Almanza MD [address] [place] [address] refill request Social History Tobacco Use Types [...] an upcoming appointment? No-unable to reach left [facility] to call for appointment due to refill [...] N/A Patients current insurance carrier is: Payor: [employer] FFS / Plan: [employer]IANCE / Product Type: MEDICAID RISK documented in this encounter Plan of Treatment Not on file documented as of this encounter Visit Diagnoses Not on filedocumented in this encounter Care Teams Xerox Machine Assembler Relationship Specialty Start Date End Date Daphne Almanza MD [address] [place] [address] PCP - General Internal Medicine 07/31/15 Daphne Almanza MD [address] [place] [address] 07/29/15 documented as of this encounter
--- OUTSIDE RECORDS SUMMARY | 2024-07-03 02:47 | XMS_ITS | Encounter Summary ---
Author Organization [facility] Address [address] [place] [address] Care Team Providers Care Humanities Instructor Name Role Phone Daphne Almanza MD Primary Care Provider [phone] Daphne Almanza MD Unavailable [phone] Encounter Details Date Type Department Care Team Description 08/25/[address] Magistrate Report Medical Records [address] [place] [address] Ron Strong MD Social History Tobacco Use [...] on filedocumented in this encounter Care Teams Humanities Instructor Relationship Specialty Start Date End Date Daphne Almanza MD [address] [place] [address] PCP - General Internal Medicine 07/31/15 Daphne Almanza MD [address] [place] [address] [phone] 07/29/15 documented as of this encounter
--- OUTSIDE RECORDS SUMMARY | 2024-07-03 02:47 | XMS_ITS | Encounter Summary ---
Author Organization [facility] Address [address] [place] [address] Care Team Providers Care Test Design Engineer Name Role Phone Daphne Almanza MD Primary Care Provider [phone] Daphne Almanza MD Unavailable [phone] Reason for Visit * Reason Comments E-prescribe Rx Request Encounter Details Date Type Department Care Team Description 08/18/2019 Refill Adult Medicine [address] [address] Alexus Farris PA-C E-prescribe Rx Request Social [...] is: Payor: [employer] FFS / Plan: [employer] [facility] / Product Type: MEDICAID RISK documented in this encounter Plan of Treatment Not on file documented as of this encounter Visit Diagnoses Not on filedocumented in this encounter Care Teams Test Design Engineer Relationship Specialty Start Date End Date Daphne Almanza MD [address] [place] [address] PCP - General Internal Medicine 07/31/15 Daphne Almanza MD [address] [place] [address] 07/29/15 documented as of this encounter
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
--- OUTSIDE RECORDS SUMMARY | 2024-07-03 02:47 | XMS_ITS | Encounter Summary ---
Author Organization [facility] Address [address] [place] [address] Care Team Providers Care Sous Chef Kitchen Manager Name Role Phone Daphne Almanza MD Primary Care Provider [phone] Daphne Almanza MD Unavailable [phone] Encounter Details Date Type Department Care Team Description 08/15/2019 Transfer Records Medical Records [address] [place] [address] Abstract, Provider Social History Tobacco Use Types [...] on filedocumented in this encounter Care Teams Sous Chef Kitchen Manager Relationship Specialty Start Date End Date Daphne Almanza MD [address] [place] [address] PCP - General Internal Medicine 07/31/15 Daphne Almanza MD [address] [place] [address] [phone] 07/29/15 documented as of this encounter
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
--- OUTSIDE RECORDS SUMMARY | 2024-07-03 02:48 | XMS_ITS | Encounter Summary ---
Author Organization [facility] Address [address] [place] [address] Care Team Providers Care Shipping Room Helper Name Role Phone Daphne Almanza MD Primary Care Provider [phone] Daphne Almanza MD Unavailable [phone] Encounter Details Date Type Department Care Team Description 06/27/2023 Gas Producer Report Medical Records [address] [place] [address] Renetta Price NP Social History Tobacco Use [...] on filedocumented in this encounter Care Teams Shipping Room Helper Relationship Specialty Start Date End Date Daphne Almanza MD [address] [place] [address] [phone] PCP - General Internal Medicine 07/31/15 Daphne Almanza MD [address] [place] [address] 07/29/15 documented as of this encounter
--- OUTSIDE RECORDS SUMMARY | 2024-07-03 02:48 | XMS_ITS | Encounter Summary ---
Author Organization [facility] Address [address] [place] [address] Care Team Providers Care Second Grade Teacher Name Role Phone Daphne Almanza MD Primary Care Provider Daphne Almanza MD Unavailable [phone] Reason for Visit * Reason Onset Date Comments Faxed Order 11/10/2021 [facility] 03/2021-03/26/2022 Encounter Details Date Type Department Care Team Description 11/10/2021 Telephone Adult Medicine [facility] [address] [place] [address] [phone] Daphne Almanza MD [address] [place] [address] [phone] Faxed Order ([facility] 09/24/2021-03/26/2022) Social History [...] on filedocumented in this encounter Care Teams Second Grade Teacher Relationship Specialty Start Date End Date Daphne Almanza MD [address] [place] [address] PCP - General Internal Medicine 07/31/15 Daphne Almanza MD [address] [place] [address] 07/29/15 documented as of this encounter
--- OUTSIDE RECORDS SUMMARY | 2024-07-03 02:48 | XMS_ITS | Encounter Summary ---
Author Organization [facility] Address [address] [place] [address] Care Team Providers Care Parts Counter Clerk Name Role Phone Daphne Almanza MD Primary Care Provider [phone] Daphne Almanza MD Unavailable [phone] Encounter Details Date Type Department Care Team Description 09/11/2019 Hospital Medical Records [address] [place] [address] Pavan Ozuna MD [address] [place] [address] [address] [place] [address] Social History Tobacco Use Types Packs/Day Years [...] on filedocumented in this encounter Care Teams Parts Counter Clerk Relationship Specialty Start Date End Date Daphne Almanza MD [address] [place] [address] PCP - General Internal Medicine 07/31/15 Daphne Almanza MD [address] [place] [address] 07/29/15 documented as of this encounter
--- OUTSIDE RECORDS SUMMARY | 2024-07-03 02:48 | XMS_ITS | Encounter Summary ---
Author Organization [facility] Address [address] [facility] [address] Care Team Providers Care Spray Gun Sizer Name Role Phone Daphne Almanza MD Primary Care Provider [phone] Daphne Almanza MD Unavailable [phone] Encounter Details Date Type Department Care Team Description 08/18/2015 Release of Information Medical Records [address] [place] [address] Abstract, Provider Social History Tobacco Use Types [...] on filedocumented in this encounter Care Teams Spray Gun Sizer Relationship Specialty Start Date End Date Daphne Almanza MD [address] [place] [address] [phone] PCP - General Internal Medicine 07/31/15 Daphne Almanza MD [address] [place] [address] [phone] 07/29/15 documented as of this encounter
--- OUTSIDE RECORDS SUMMARY | 2024-07-03 02:48 | XMS_ITS | Encounter Summary ---
Author Organization [facility] Address [address] [place] [address] Care Team Providers Care Human Resources Benefits Administrator Name Role Phone Daphne Almanza MD Primary Care Provider [phone] Daphne Almanza MD Unavailable [phone] Encounter Details Date Type Department Care Team Description 09/13/2019 Orders Only Medical Records [address] [place] [address] Pavan Ozuna MD [address] [facility] [address] [place] [address] Social History Tobacco Use Types Packs/Day Years [...] on filedocumented in this encounter Care Teams Human Resources Benefits Administrator Relationship Specialty Start Date End Date Daphne Almanza MD [address] [place] [address] PCP - General Internal Medicine 07/31/15 Daphne Almanza MD [address] [place] [address] 07/29/15 documented as of this encounter
[2024-07-03] MEDS: predniSONE 10 MG TABLET PO (03:01)
[2024-07-03] MEDS: guaiFEN/Codeine SF 200/20/10ML 10 ML LIQUID PO (03:03)
[2024-07-03] MEDS: Albuterol Sulfate 2.5 MG, Albuterol/Iprat 2.5/0.5MG 3 ML 3 ML INHALE (03:07)
[2024-07-03] MEDS: Ondansetron ODT 4 MG TAB.RAPDIS TRANSLINGU ×2 (04:08→05:05)
[2024-07-03] MEDS: Ibuprofen 600 MG TABLET PO (04:55)
[2024-07-03 05:18] VITALS: BP 150/76; PULSE 92; RESP 16; TEMP 36.7; O2SAT 95
[2024-07-03 05:26] VITALS: BP 150/76; PULSE 92; RESP 16; TEMP 36.7; O2SAT 95
== END 2024-07-03 05:27 | disposition home or self-care (01) ==
PROVIDERS: Emergency Provider Emergency Medicine; PCP Internal Medicine
DX: J10.1 Influenza due to other identified influenza virus with other respiratory manifestations (principal); R05.9 Cough, unspecified; J45.909 Unspecified asthma, uncomplicated; M79.10 Myalgia, unspecified site; R06.02 Shortness of breath; Z79.899 Other long term (current) drug therapy; Z03.818 Encounter for observation for suspected exposure to other biological agents ruled out
CPT/HCPCS: 0241U; 71046; 87651; 99284

== ENCOUNTER → 2024-07-03 01:35 | Outpatient (BNV) | payer OTHER, SELFPAY | PROVIDERS: Emergency Provider Emergency Medicine; PCP Internal Medicine; Visit Provider Radiology Diagnostic Radiology | DX: R07.9 Chest pain, unspecified (principal); R06.02 Shortness of breath | CPT/HCPCS: 71046 ==

== ENCOUNTER 2024-07-10 17:00 | Emergency (ER) | payer OTHER, SELFPAY ==
--- NOTE | ~2024-07-10 | XR_ITS ---
CLINICAL HISTORY: CP, SOB Chest Radiographs, 2 views Comparison: 07/02/24 Findings: Prominent sized heart. Normal mediastinal contours. No pneumothorax. No opacity. No pleural effusion. Normal upper abdomen. No acute fracture. Impression: No acute findings. This document has been electronically signed by: Hilary Hobson MD on 07/10/2024 18:22:02
--- NOTE | 2024-07-10 17:03 | ECG_ITS ---
Test Reason : CHEST PAIN Blood Pressure : */* mmHG Vent. Rate : 63 BPM Atrial Rate : 63 BPM P-R Int : 142 ms QRS Dur : 80 ms QT Int : 386 ms P-R-T Axes : 46 66 47 degrees QTcB Int : 395 ms Normal sinus rhythm Minimal voltage criteria for LVH, may be normal variant ( Sokolow-Patiño ) Borderline ECG When compared with ECG of 01-May-2024 10:21, Premature ventricular complexes are no longer Present Referred By: Generic ED Physician Electronically Signed By: JAVON SCHUMACHER MD
[2024-07-10 17:27] VITALS: BP 178/91; PULSE 70; RESP 16; TEMP 36.4; O2SAT 100; BMI 26.4
--- NOTE | 2024-07-10 17:28 | ED_ITS ---
HPI - Chest Pain General Chief Complaint: Chest Pain Stated Complaint: chest discomfort, sob Time Seen by Provider: 07/10/24 18:13 Source: patient Limitations: language barrier History of Present Illness ED Provider: Manasa Martínez PA-C HPI narrative: 63-year-old female with a history of known influenza a x2 days, presents with sore throat. Patient states she is having nasal secretions running the back of her throat and now her throat is sore. Associated burning sensation of upper chest in relation to her sore throat. Denies shortness of breath, nausea, vomiting, diarrhea. Related Data Home Medications ?Medication ?Instructions ?Recorded ?Confirmed buspirone 30 mg tablet 30 mg PO BID 03/04/20 03/04/20 famotidine 20 mg tablet 20 mg PO BID 03/04/20 03/04/20 loratadine 10 mg capsule 10 mg PO DAILY 03/04/20 03/04/20 pantoprazole 40 mg tablet,delayed 40 mg PO DAILY 03/04/20 03/04/20 release risperidone 2 mg tablet (Risperdal) 2 mg PO DAILY 10/13/20 gabapentin 100 mg capsule 100 mg PO BID 02/28/24 azelastine 137 mcg (0.1 %) nasal 2 spray intranasal BID 05/01/24 spray eszopiclone 2 mg tablet 2 mg PO BEDTIME PRN insomnia 05/01/24 fluticasone propionate 50 1 spray intranasal BID 05/01/24 mcg/actuation nasal spray,suspension hydrocortisone 1 % topical cream 1 appl topical BID 05/01/24 with perineal applicator tramadol 50 mg tablet 50 mg PO Q6H PRN severe pain 05/01/24 venlafaxine 150 mg 150 mg PO DAILY 05/01/24 capsule,extended release 24 hr Previous Rx's ?Medication ?Instructions ?Recorded docusate sodium 100 mg capsule 200 mg (2 x 100 mg) PO DAILY #60 03/27/21 (Colace) caps polyethylene glycol 3350 17 17 g PO DAILY #510 grams 03/27/21 gram/dose oral powder (Miralax) lorazepam 1 mg tablet (Ativan) 1 mg PO BID PRN anxiety #8 tabs 12/16/22 phenazopyridine 200 mg tablet 200 mg PO TID PRN pain 6 doses #6 03/10/24 (Pyridium) tabs ibuprofen 600 mg tablet 600 mg PO Q8H PRN pain #30 tabs 04/05/24 oxycodone 5 mg capsule 5 mg PO Q8H PRN pain 3 days #9 caps 05/01/24 albuterol sulfate 90 mcg/actuation 2 puff inhalation Q6H PRN 07/03/24 aerosol inhaler shortness of breath or wheezing #8.5 grams prednisone 10 mg tablet 10 mg PO BID #10 tabs 07/03/24 Allergies Allergy/AdvReac Type Severity Reaction Status Date / Time aspirin [ASA] Allergy Intermediate NAUSEA & Verified 07/10/24 17:30 VOMITING, stomach upset, nausea and vomiting pineapple Allergy Itching Verified 07/10/24 17:30 Review of Systems 2 Review of Systems: Yes all other systems are reviewed and are negative Constitutional: Constitutional: Reports fatigue, Reports fever(s) and Reports malaise ENT: Reports nasal congestion, Reports nasal discharge, Reports post nasal drip and Reports sore throat Cardiovascular: Cardiovascular: Denies chest pain and Denies dyspnea Respiratory: Respiratory: Denies cough and Denies dyspnea Endocrine: Endocrine: Reports fatigue PMFSH Past Medical History Attestation statement: The following information was validated with the patient. Medical History Carpal tunnel syndrome Asthma Vocal cord anomaly Bloating Acid reflux Surgical History Hx of tubal ligation Social History Social History Household Members Other:: alone Alcohol intake: never Patient Tobacco Use Status: Former Tobacco user Tobacco use type: Cigarette Years Smoked: quit 12 years ago Advance Directives: No Advance Directives Information Provided: Yes Current occupational status: unemployed Physical Exam 2 Vital Signs: Vital Signs: Last Vital Signs Temp 98.6 F 07/10/24 20:29 Pulse 60 07/10/24 20:29 Resp 16 07/10/24 20:29 BP 175/79 H 07/10/24 20:29 Pulse Ox 98 07/10/24 20:29 O2 Del Method Room Air 07/10/24 20:29 BMI result Body Mass Index 26.4 Const: Other: Alert well-appearing Orientation/consciousness: patient oriented x3 HEENT: Other: Opiate is erythematous, tonsils somewhat prominent, no overlying exudate uvula midline, no sublingual fluctuance, no swelling inferior to the jawline. Resp: Effort & Inspection: normal respiratory effort Cardio: Other: Normal peripheral perfusion Skin: Other: Warm dry no rash Neuro: General: patient oriented x3, gait normal, no focal motor deficits and CN's II-XI intact bilaterally Psych: Other: Cooperative Course Course Course Narrative: This is an RME: Additional HPI, ROS, PE not included below will be deferred to primary provider. RME assessment and note performed by: Cathie Gregg PA-C This is a 42-lmen-arf-female, asthma, who presents to the ER with complaints of chest pain, headache, and shortness of breath since 10 AM this morning. Reports SOB on exertion. CP is intermittent. +nausea. Patient hypertensive in triage 178/91. She is well-appearing under no acute distress. She was seen in the ER and tested positive for influenza. Plan: Labs, EKG, chest x-ray, further ER evaluation needed. Medical Decision Making Medical Decision Making [facility] Narrative: 63-year-old female with a history of known influenza a x2 days, presents with sore throat. Patient states she is having nasal secretions running the back of her throat and now her throat is sore. Associated burning sensation of upper chest in relation to her sore throat. Denies shortness of breath, nausea, vomiting, diarrhea. Problem: Known influenza A History: Per patient I have considered the following differential diagnoses: ACS, costochondritis, strep pharyngitis, viral pharyngitis, RPA, ESTHETICIAN/OWNER Plan: In reality, the patient was not have chest pain, she has postnasal drip irritating her throat. This clearly got lost in translation from triage. Screening labs including a cardiac enzymes EKG and chest x-ray were obtained. Everything is negative. We will send with home care instructions for her viral pharyngitis. In addition, she has no exam findings that are consistent with RPA or ESTHETICIAN/OWNER. I have independently reviewed the following tests: Labs: No leukocytosis, not anemic, no electrolyte abnormality noted, troponin negative EKG: Normal sinus rhythm, rate of 63, no ischemic changes no ectopy Chest x-ray:indings: Prominent sized heart. Normal mediastinal contours. No pneumothorax. No opacity. No pleural effusion. Normal upper abdomen. No acute fracture. Impression: No acute findings. Lab Data 07/10/24 18:13 07/10/24 18:13 Labs: Lab Results 07/10/24 Range/Units 18:13 WBC 8.1 (4.8-10.8) X10*3/uL RBC 4.25 (4.20-5.50) X10*6/uL Hgb 12.9 (12.0-16.0) g/dl Hct 37.0 (37.0-47.0) % MCV 87.1 (80.0-98.0) fL MCH 30.4 (27.0-33.0) pg MCHC 34.9 (31.0-35.0) g/dl RDW 13.0 (11.0-16.0) % Plt Count 334 D (160-400) X10*3/uL MPV 10.0 (9.4-12.3) fL Immature Gran % (Auto) 1.0 H (0.0-0.4) % Neut % (Auto) 51.8 (45-73) % Lymph % (Auto) 33.6 (20-40) % [place] % (Auto) 11.0 (2-11) % Eos % (Auto) 2.1 (0-4) % Baso % (Auto) 0.5 (0-2) % Lymph # (Auto) 2.7 (1.2-4.9) X10*3/uL [place] # (Auto) 0.9 (0.1-1.2) X10*3/uL Eos # (Auto) 0.2 (0.0-0.4) X10*3/uL Baso # (Auto) 0.0 (0.0-0.2) X10*3/uL Abs Immat Gran (auto) 0.08 H (0.00-0.03) X10*3/uL Absolute Neuts (auto) 4.2 (2.0-8.3) x10*3/uL Absolute Nucleated RBC 0.000 (0.0-0.012) X10*3/uL Nucleated RBC % (auto) 0.0 (0.0-0.2) /100WBC Sodium 141 (135-145) mmol/L Potassium 3.7 D (3.3-5.1) mmol/L Chloride 105 (96-108) mmol/L Carbon Dioxide 28 (22-29) mmol/L Anion Gap 12 (12-20) BUN 16 (9-16) mg/dL Creatinine 0.88 (0.5-1.4) mg/dL Estim Creat Clear Calc 60.4 Estimated GFR > 60 Random Glucose 94 (60-115) mg/dL Calcium 9.2 D (8.4-10.2) mg/dL Magnesium 2.0 (1.6-2.6) mg/dL Total Bilirubin 0.2 (0.0-1.0) mg/dL Direct Bilirubin < 0.2 (0.0-0.5) mg/dL AST 29 (5-31) U/L ALT 24 (0-31) U/L Alkaline Phosphatase 89 (39-117) U/L Troponin I High Sens < 2.7 (<3.5-17.0) ng/L Total Protein 7.7 (6.5-8.0) g/dL Albumin 4.0 (3.5-5.0) g/dL Lipase 45 (8-78) U/L Influenza Type A (PCR) NEGATIVE (Negative) Influenza Type B (PCR) NEGATIVE (Negative) RSV RNA Qual (PCR) NEGATIVE (Negative) SARS-CoV-2 RNA (RT-PCR) NEGATIVE (Negative) Discharge Plan Discharge Clinical Impression: Acute viral pharyngitis, Post-nasal drip Patient Disposition: Home, Self-Care Instructions: Pharyngitis (ED), Postnasal Drip (DC) Additional Instructions: All of your screening labs including a cardiac enzymes were normal, the EKG showed no concerning changes the chest x-ray is clear. You have viral pharyngitis, secondary to your postnasal drip. Use [id number] Zyrtec, daily for the next few weeks, to help dry up your nasal secretions. For your throat pain, warm saltwater gargles are very helpful. Follow up with your primary care provider as needed. Prescriptions: No Action docusate sodium [Colace] 100 mg capsule 200 mg PO DAILY Qty: 60 0RF polyethylene glycol 3350 [Miralax] 17 gram/dose powder 17 g PO DAILY Qty: 510 0RF phenazopyridine [Pyridium] 200 mg tablet 200 mg PO TID PRN (Reason: pain) Qty: 6 0RF ibuprofen 600 mg tablet 600 mg PO Q8H PRN (Reason: pain) Qty: 30 0RF albuterol sulfate 90 mcg/actuation HFA aerosol inhaler 2 puff inhalation Q6H PRN (Reason: shortness of breath or wheezing) Qty: 8.5 0RF prednisone 10 mg tablet 10 mg PO BID Qty: 10 0RF lorazepam [Ativan] 1 mg tablet 1 mg PO BID PRN (Reason: anxiety) Qty: 8 0RF oxycodone 5 mg capsule 5 mg PO Q8H PRN (Reason: pain) 3 Days Qty: 9 0RF Rx Instructions: Partial Fill upon patient request. Side effects of drowsiness. Not take at work or while driving venlafaxine 150 mg capsule,extended release 24hr 150 mg PO DAILY azelastine 137 mcg (0.1 %) spray,non-aerosol 2 spray intranasal BID fluticasone propionate 50 mcg/actuation spray,suspension 1 spray intranasal BID hydrocortisone 1 % cream with perineal applicator 1 appl topical BID eszopiclone 2 mg tablet 2 mg PO BEDTIME PRN (Reason: insomnia) tramadol 50 mg tablet 50 mg PO Q6H PRN (Reason: severe pain) famotidine 20 mg tablet 20 mg PO BID pantoprazole 40 mg tablet,delayed release (DR/EC) 40 mg PO DAILY buspirone 30 mg tablet 30 mg PO BID loratadine 10 mg capsule 10 mg PO DAILY risperidone [Risperdal] 2 mg tablet 2 mg PO DAILY gabapentin 100 mg capsule 100 mg PO BID Print Language: Romanian
[2024-07-10 18:16] LABS: MANUAL DIFF FLAG NO
[2024-07-10 18:32] LABS: Alanine Aminotransferase 24 U/L (0-31); Alkaline Phosphatase 89 U/L (39-117); Anion Gap 12 (12-20); Aspartate Amino Transferase 29 U/L (5-31); Bilirubin Direct < 0.2 mg/dL (0.0-0.5); Bilirubin Total 0.2 mg/dL (0.0-1.0); Blood Urea Nitrogen 16 mg/dL (9-16); Calcium 9.2 mg/dL (8.4-10.2); Carbon Dioxide 28 mmol/L (22-29); Chloride 105 mmol/L (96-108); Creatinine Clr Calc Pharmacy 60.4; Estimated Glomerular Filt Rate > 60; Glucose Random 94 mg/dL (60-115); Lipase 45 U/L (8-78); Potassium 3.7 mmol/L (3.3-5.1); Sodium 141 mmol/L (135-145); Total Protein 7.7 g/dL (6.5-8.0)
[2024-07-10 18:39] LABS: Troponin-I High Sensitivity < 2.7 ng/L (<3.5-17.0)
--- OUTSIDE RECORDS SUMMARY | 2024-07-10 18:42 | XMS_ITS | Data Portability ---
Author Organization [facility], [address] Address [address] [place] [address] Care Team Providers Care Mailing Section Clerk Name Role Phone ROSHNI, DEVYN Primary Care Provider Assessment No assessment recorded. Plan of Treatment Reminders Order Date Submit Date Provider Last Modified By Organization Details Last Modified Time Details Appointments None recorded. Lab None recorded. Referral None recorded. Procedures None recorded. Surgeries None recorded. Imaging None recorded. Medication Orders olopatadine 0.1 % eye drops 2022 023 [id number], [address] [place] [address], [address], 3 16:15:39 ciprofloxac in 0.3 % eye drops 2022 023 [id number], [address] [place], [address], 3 16:15:39 Medrol (Constantin) 4 mg tablets in a dose pack 2022 023 [id number], [address] [place] [address], [address], 3 15:36:43 Patient TargetsNo targets recorded. Patient Instructions Encounter Date Encounter Id Patient Instructions Last Modified By Organization Details Last Modified Time 04/06/2022 [id number] Eczema: Care Instructions Not available 04/06/2022 15:22:26 [...] as you are not taking any other ctdp-buk-djpksqh or prescription medications which already contain Acetaminophen (the same ingredient that is in Tylenol). Not available 04/06/2022 16:08:48 08/12/2022 [id number] Based on your presentation and exam, you [...] next 1 week. Thank you for using [facility] today, please feel free to contact us with any questions or concerns. [email or web address] Not available 08/12/2022 16:15:35 Reason for Referral None Reported. Problems Name Problem SNOMED Code Status Onset Date Resolution Date Notes Provider Name and Address Organization Details Recorded Time Gastroesophage al reflux disease 930537464 Active 2022 ANGEL lowery, PA - [facility] 3 14:39:43 Fibromyalgia 372078886 Active 2022 ANGEL lowrey PA - [facility] 3 14:39:55 Anxiety 65743240 Active 2022 ANGEL lowery PA - [facility] 3 14:40:02 Asthma 990508596 Active 2022 [facility] - [facility] [...] Name and Address Organization Details Recorded Time 909773 aspirin medicatio n gi bleed Not available Not available 04/06/2022 1191 [facility] ANGEL MARYAN null, PA - [facility] 14:36:43 683225 apple extract food anaphylax is Not available Not available 04/06/2022 28069 65 [facility] ANGEL MARYAN null, PA - [...] MOUTH ONCE A DAY DIRECTION S IN [place] active Not Available Not Available No t [...] Updated DateTime 3 160.02 cm 27.5 kg/m2 03024.8 2 g 5 18 /min 98 % [...] Updated DateTime 3 160.02 cm 27.6 kg/m2 60962.4 1 g 99 % 99 % 65 /min 16 /min 98.1 [degF] 129 mm[Hg] 73 mm[Hg] ANGEL MARYAN PA - [facility] 3 14:42:37 Social History Question Answer Notes LastModified by Organizat ion Details LastModified Time Tobacco Smoking Status Never Smoker KERLINE lowery PA - [facility] 08/12/2022 15:38:01 What Is Your Level Of Alcohol Consumption? None [email or web address] Information not available 08/12/2022 Do You Use Any Illicit Or Recreational Drugs? No [email or web address] Information not available 08/12/2022 Have You Recently Traveled Abroad? No Information not available 08/12/2022 Do You Or Have You Ever Used Any Other Forms Of Tobacco Or Nicotine? No [email or web address] Information not available 08/12/2022 Sex: Unknown Functional [...] SNOMED-CT Code Diagnosis ICD10 Code Diagnosis Note [id number] [address] [place] [address] 03/14/2018 16:16:14 03/14/2018 16:59:15 [id number] Carmen Preciado MD [address] [place] [address] 04/06/2022 13:41:28 04/06/2022 15:30:14 Pruritic disorder 778521619 L29.9 You will need to follow up with your PCP or a specialist such as an [employer] for this ongoing symptom [id number] [facility] [address] [address] [place] [address] 08/12/2022 13:52:50 08/12/2022 16:17:02 Allergic conjunctivitis 053519912 H10.13 Blood pressure was elevated - try [...] MEDICAL CENTER PLAN (MEDICAID HMO) DAVID Eldridge [id number] Nila Banks 04/06/[address] [facility] (MEDICAID HMO) DAVID Eldridge [id number] Nila Banks 08/12/[address] [facility] (MEDICAID HMO) DAVID Eldridge [id number] Nila Banks Notes Date Note Type Note Provider Name and Address Organization Details Recorded Time 3 text/html Rash / Skin LesionReported bypatient.Quality:itchy Context:No new products, detergents, creams, soaps, TRuied antihistamines and one ciourse steroiid 2 weeks ago. has been to both PCP and UCNotes:No rash present.Feels very itchy Carmen Preciado MD [address] [place], [phone], PA - [facility] 04/06/2022 16:09:05 3 [...] irritating. ADRYAN MARTINEZ [address] [place], [phone], PA - [facility] 08/12/2022 16:20:55 OBGyn Episode No OBEpisode recorded.
--- OUTSIDE RECORDS SUMMARY | 2024-07-10 18:42 | XMS_ITS | Encounter Summary ---
Author Organization [facility] Address [address] [place] [address] Care Team Providers Care Funeral Service Apprentice Name Role Phone Daphne Almanza MD Primary Care Provider [phone] Encounter Details Date Type Department Care Team (Late st Contact Info) Description 01/01/2024 2:30 PM EDT Hospital Encounter TH HISTORIC ENCOUNTERS [facility] ONLY Daphne Almanza MD [address] [place] [address] Social History Tobacco Use Types Packs/Day Years [...] your loved ones. For example, child care supervisor or elderly care for an older adult? [...] 07/15/2024 2:00 PM EDT Office Visit Urogynecology [address] [address] Kym Christine MD [address] [place] [id number] 07/18/2024 1:30 PM EDT Office Visit Adult Medicine [facility] [address] [place] [address] Mavis Osborn PA [address], [place] documented as of this encounter Visit Diagnoses Not on filedocumented in this encounter Care Teams Funeral Service Apprentice Relationship Specialty Start Date End Date Daphne Almanza MD [address] [place] [address] PCP - General Internal Medicine 11/30/13 documented as of this encounter
[2024-07-10 18:48] LABS: Basophils Percent Auto 0.5 % (0-2); Eosinophils Absolute Auto 0.2 X10*3/uL (0.0-0.4); Eosinophils Percent Auto 2.1 % (0-4); Hemoglobin 12.9 g/dl (12.0-16.0); Imm Gran Abs Auto 0.08 X10*3/uL (0.00-0.03); Lymphocytes Absolute Auto 2.7 X10*3/uL (1.2-4.9); Lymphocytes Percent Auto 33.6 % (20-40); Mean Corpuscular HGB Conc 34.9 g/dl (31.0-35.0); Mean Corpuscular Hemoglobin 30.4 pg (27.0-33.0); Mean Corpuscular Volume 87.1 fL (80.0-98.0); Monocytes Absolute Auto 0.9 X10*3/uL (0.1-1.2); Neutrophils Absolute Auto 4.2 x10*3/uL (2.0-8.3); Neutrophils Percent Auto 51.8 % (45-73); Platelet Count 334 X10*3/uL (160-400); Red Blood Count 4.25 X10*6/uL (4.20-5.50); White Blood Count 8.1 X10*3/uL (4.8-10.8)
[2024-07-10 18:55] LABS: Influenza A PCR NEGATIVE (Negative); Influenza B PCR NEGATIVE (Negative); Resp Syncy Virus RNA Qual PCR NEGATIVE (Negative); SARS COV2 PCR INHOUSE NEGATIVE (Negative)
[2024-07-10 20:29] VITALS: BP 175/79; PULSE 60; RESP 16; TEMP 37; O2SAT 98
[2024-07-10 21:18] VITALS: BP 170/80; PULSE 61; RESP 16; TEMP 37; O2SAT 100
[2024-07-10 21:19] VITALS: BP 170/80; PULSE 61; RESP 16; TEMP 37; O2SAT 100
== END 2024-07-10 21:20 | disposition home or self-care (01) ==
PROVIDERS: Physician Assistant Medical; Emergency Provider Emergency Medicine; PCP Internal Medicine
DX: J02.9 Acute pharyngitis, unspecified (principal); R09.82 Postnasal drip; R06.02 Shortness of breath; R51.9 Headache, unspecified; Z03.818 Encounter for observation for suspected exposure to other biological agents ruled out; J45.909 Unspecified asthma, uncomplicated; Z87.891 Personal history of nicotine dependence; Z79.899 Other long term (current) drug therapy
CPT/HCPCS: 0241U; 71046; 80048; 80076; 83690; 83735; 84484; 85025; 93005; 99283; 99284

== ENCOUNTER → 2024-07-10 17:03 | Outpatient (BNV) | payer OTHER, SELFPAY | PROVIDERS: Emergency Provider Emergency Medicine; PCP Internal Medicine; Visit Provider Internal Medicine Cardiovascular Disease | DX: R07.9 Chest pain, unspecified (principal) | CPT/HCPCS: 93010 ==

== ENCOUNTER → 2024-07-10 17:30 | Outpatient (BNV) | payer OTHER, SELFPAY | PROVIDERS: Emergency Provider Emergency Medicine; PCP Internal Medicine; Visit Provider Radiology Diagnostic Radiology | DX: R07.9 Chest pain, unspecified (principal); R06.02 Shortness of breath | CPT/HCPCS: 71046 ==

== ENCOUNTER 2024-10-03 20:32 | Emergency (ER) | payer OTHER, SELFPAY ==
--- NOTE | ~2024-10-03 | XR_ITS ---
CLINICAL HISTORY: cough, fevers Chest X-ray, 2 Views COMPARISON: CR - XR CHEST 2V - 07/10/24 17:52 EDT FINDINGS: No consolidation. Mild bibasilar atelectasis. No pleural effusion. No pneumothorax. No cardiomegaly. No acute fracture. IMPRESSION: No acute findings. This document has been electronically signed by: Darien Santo MD on 10/03/2024 21:15:48
[2024-10-03 20:46] VITALS: BP 131/83; PULSE 85; RESP 16; TEMP 38.1; O2SAT 96; BMI 26.6
--- NOTE | 2024-10-03 20:49 | ED_ITS ---
HPI - General Adult General Chief complaint: Fever Stated complaint: migraine,body aches Time Seen by Provider: 10/03/24 22:50 Source: patient Mode of arrival: ambulatory Limitations: no limitations History of Present Illness ED Provider: Dr. Paulette Finley HPI narrative: Patient comes to the emergency room complaining of 4 days of headache, nausea, general malaise and chills. Patient denies URI symptoms, denies chest pain or shortness of breath, denies hematuria or dysuria. Earlier today, patient has a headache but resolved after taking p.o. ibuprofen Related Data Home Medications ?Medication ?Instructions ?Recorded ?Confirmed buspirone 30 mg tablet 30 mg PO BID 03/04/20 famotidine 20 mg tablet 20 mg PO BID 03/04/20 loratadine 10 mg capsule 10 mg PO DAILY 03/04/2012/14 pantoprazole 40 mg tablet,delayed 40 mg PO DAILY 03/0403/04/20 release risperidone 2 mg tablet (Risperdal) 2 mg PO DAILY 09/25 gabapentin 100 mg capsule 100 mg PO BID 02/28/24 azelastine 137 mcg (0.1 %) nasal 2 spray intranasal BI D 05/01/24 spray eszopiclone 2 mg tablet 2 mg PO BEDTIME PRN insomnia 05/01/24 fluticasone propionate 50 1 spray intranasal BID 05/01 mcg/actuation nasal spray,suspension hydrocortisone 1 % topical cream 1 appl topical BID with perineal applicator tramadol 50 mg tablet 50 mg PO Q6H PRN severe pain 05/01/24 venlafaxine 150 mg 150 mg PO DAILY 05/01/24 capsule,extended release 24 hr Previous Rx's ?Medication ?Instructions ?Recorded docusate sodium 100 mg capsule 200 mg (2 x 100 mg) PO DAILY #60 03/27/21 (Colace) caps polyethylene glycol 3350 17 17 g PO DAILY #510 grams 0 03/27/21 gram/dose oral powder (Miralax) lorazepam 1 mg tablet (Ativan) 1 mg PO BID PRN anxiety #8 tabs 12/16/22 phenazopyridine 200 mg tablet 200 mg PO TID PRN pain 6 doses #6 03/10/24 (Pyridium) tabs ibuprofen 600 mg tablet 600 mg PO Q8H PRN pain #30 t abs 04/05/24 oxycodone 5 mg capsule 5 mg PO Q8H PRN pain 3 days #9 caps 05/01/24 albuterol sulfate 90 mcg/actuation 2 puff inhalation Q 6H PRN 07/03/24 aerosol inhaler shortness of breath or wheez ing #8.5 grams prednisone 10 mg tablet 10 mg PO BID #10 tabs ibuprofen 600 mg tablet 600 mg PO Q8H PRN fever or p ain 10/03/24 #30 tabs ondansetron 4 mg disintegrating 4 mg PO Q6H PRN nausea and 10/03/24 tablet vomiting #10 tabs Allergies Allergy/AdvReac Type Severity Reaction Status Date / Time aspirin (ASA) Allergy Intermediate NAUSEA & Verified 10/03/24 20:49 VOMITING, stomach upset, nausea and vomiting pineapple Allergy Itching Verified 10/03/24 20:49 Review of Systems 2 Review of Systems: Constitutional : No Weight loss, complaining of subjective fever, chills, fatigue and generalized malaise ENT/Mouth : No Hearing loss, No Ear Pain, No Nasal Congestion, No Sinus Pain, No Hoarseness, No sore throat, No Rhinorrhea, No Swallowing Difficulty Eyes: No Eye Pain, No Swelling, No Redness, No Foreign Body, No Discharge, No Vision Changes Cardiovascular : No Chest Pain, No SOB, No Dyspnea on Exertion, No Orthopnea, No Edema, No Palpitations Respiratory : No Cough, No Sputum, No Wheezing, No Smoke Exposure, No Dyspnea Gastrointestinal : Complaining of Nausea, No Vomiting, No Diarrhea, No Constipation, No abdominal Pain, No Hematochezia, No Melena Genitourinary : no irregular bleeding, No Dysuria, No Urinary Frequency, No Hematuria, No Urinary Incontinence, No Urgency, No Flank Pain, No Urinary Flow Changes, No Hesitancy Musculoskeletal : No joint pain, No Myalgias, No Joint Swelling Skin : No Skin Lesions, No rash Neuro : No Weakness, No Numbness, No Paresthesias, No Loss of Consciousness, No Dizziness, complaining of headache that resolved with ibuprofen Psych : No Anxiety/Panic, No Depression, No SI/HI/AH/VH, No Social Issues, Heme/Lymph: No Bruising, No Bleeding,No Lymphadenopathy Endocrine : No Polyuria, No Polydipsia, No Temperature Intolerance [facility] Past Medical History Medical History Carpal tunnel syndrome Asthma Vocal cord anomaly Bloating Acid reflux Surgical History Hx of tubal ligation Social History Social History Household Members Other:: alone Alcohol intake: never Patient Tobacco Use Status: Former Tobacco user Tobacco use type: Cigarette Years Smoked: quit 12 years ago Smoked in Last 30 Days: No Use of substances other than those prescribed or required for medical reasons: No Advance Directives: No Advance Directives Information Provided: No Patient : No Current occupational status: unemployed Physical Exam ED Vital Signs: Vital Signs - 24 hr 10/03/24 20:46 10/03/24 22:05 Temperature 100.5 F H 99.1 F Pulse Rate 85 73 Respiratory Rate 16 18 Blood Pressure 131/83 121/57 L Pulse Oximetry 96 96 Oxygen Delivery Method Room Air Room Air BMI result Body Mass Index 26.6 Const Other: Appearance: Alert. Oriented X3. No acute distress. Eyes: Pupils equal, round and reactive to light. ENT: Pharynx normal. Mild nasal congestion Neck: Normal inspection. Neck supple. No lymph nodes noted. No crepitus CVS: Normal heart rate and rhythm. Pulses normal. Normal S1 and S2 Respiratory: No respiratory distress. Breath sounds normal. No Wheezing. No rales Abdomen: Soft and nontender. No rigidity. No distention. Skin: Skin warm and dry. Normal skin color. Normal skin turgor. Extremities: No lower extremity edema. No Lacerations. No Rash Neuro: Oriented X 3. No motor deficit. No sensory deficit. Moving all extremities. No slurred speech. CN 2 through 12 grossly intact Psych: calm, cooperative, normal affect Course Course Course Narrative: This is an RME: Additional HPI, ROS, PE not included below will be deferred to primary provider. RME assessment and note performed by: Cathie Gregg PA-C This is a 63-year-old female, with a history of arthritis, GERD, and fibromyalgia, who presents emergency department with concerns of muscle aches, headaches, generalized malaise for the last 3 days. On arrival, patient found to be febrile at 100.5 all other vital signs within normal limits. Plan: Labs, EKG, chest x-ray, viral swabs, medicated with ibuprofen 600 mg. Medications Administered Discontinued Medications Generic Name Dose Route Start Last Admin Trade Name Sherly PRN Reason Stop Dose Admin Ibuprofen 600 mg 10/03/24 20:49 10/03/24 20:52 Ibuprofen 600 Mg Tablet PO 10/03/24 20:50 600 mg ONCE ONE Administration Medical Decision Making Medical Decision Making [facility] Narrative: My interpretation of labs: Patient's white blood cell count 10.9, otherwise no significant abnormality in patient's hematology, normal chemistry, normal LFTs and troponin, serology negative for COVID RSV and influenza. Chest x-ray negative for pneumonia. I discussed the above-mentioned and physical exam with the patient, patient likely has a viral syndrome. Patient was offered fluids, IV medication, patient prefers p.o. meds and be discharged home. Patient states that she feels fairly well after she took ibuprofen here in the emergency room. Differential Diagnosis Differential Diagnoses: The differential diagnosis associated with the presentation includes (As above) Lab Data [facility] Lab Attestation statement: I reviewed the patient's lab results. 10/03/24 21:28 10/03/24 21:28 Labs: Lab Results 10/03/24 Range/Units 21:28 WBC 10.9 H (4.8-10.8) X10*3/uL RBC 4.22 (4.20-5.50) X10*6/uL Hgb 12.7 (12.0-16.0) g/dl Hct 36.4 L (37.0-47.0) % MCV 86.3 (80.0-98.0) fL MCH 30.1 (27.0-33.0) pg MCHC 34.9 (31.0-35.0) g/dl RDW 13.6 (11.0-16.0) % Plt Count 257 (160-400) X10*3/uL MPV 10.2 (9.4-12.3) fL Immature Gran % (Auto) 0.5 H (0.0-0.4) % Neut % (Auto) 77.0 H (45-73) % Lymph % (Auto) 13.2 L (20-40) % [place] % (Auto) 7.6 (2-11) % Eos % (Auto) 1.3 (0-4) % Baso % (Auto) 0.4 (0-2) % Lymph # (Auto) 1.4 (1.2-4.9) X10*3/uL [place] # (Auto) 0.8 (0.1-1.2) X10*3/uL Eos # (Auto) 0.1 (0.0-0.4) X10*3/uL Baso # (Auto) 0.0 (0.0-0.2) X10*3/uL Abs Immat Gran (auto) 0.05 H (0.00-0.03) X10*3/uL Absolute Neuts (auto) 8.4 H (2.0-8.3) x10*3/uL Absolute Nucleated RBC 0.000 (0.0-0.012) X10*3/uL Nucleated RBC % (auto) 0.0 (0.0-0.2) /100WBC Sodium 140 (135-145) mmol/L Potassium 4.3 (3.3-5.1) mmol/L Chloride 104 (96-108) mmol/L Carbon Dioxide 26 (22-29) mmol/L Anion Gap 14 (12-20) BUN 14 (9-16) mg/dL Creatinine 0.88 (0.5-1.4) mg/dL Estim Creat Clear Calc 60.6 Estimated GFR > 60 Random Glucose 98 (60-115) mg/dL Calcium 9.1 (8.4-10.2) mg/dL Magnesium 1.9 (1.6-2.6) mg/dL Total Bilirubin 0.3 (0.0-1.0) mg/dL Direct Bilirubin 0.1 (0.0-0.5) mg/dL AST 24 (5-31) U/L ALT 16 (0-31) U/L Alkaline Phosphatase 83 (39-117) U/L Troponin I High Sens < 2.7 (<3.5-17.0) ng/L Total Protein 8.1 H (6.5-8.0) g/dL Albumin 4.3 (3.5-5.0) g/dL Influenza Type A (PCR) NEGATIVE (Negative) Influenza Type B (PCR) NEGATIVE (Negative) RSV RNA Qual (PCR) NEGATIVE (Negative) SARS-CoV-2 RNA (RT-PCR) NEGATIVE (Negative) S. pyogenes GrpA XAVIER Negative (Negative) Discharge Plan Discharge Clinical Impression: Acute viral syndrome Patient Disposition: Home, Self-Care Instructions: Viral Syndrome (ED) Additional Instructions: Please follow-up with your primary care physician tomorrow. If you have any worsening or new symptoms, please return to the emergency room or call 911 Prescriptions: New ibuprofen 600 mg tablet 600 mg PO Q8H PRN (Reason: fever or pain) Qty: 30 0RF ondansetron 4 mg tablet,disintegrating 4 mg PO Q6H PRN (Reason: nausea and vomiting) Qty: 10 0RF No Action docusate sodium [Colace] 100 mg capsule 200 mg PO DAILY Qty: 60 0RF polyethylene glycol 3350 [Miralax] 17 gram/dose powder 17 g PO DAILY Qty: 510 0RF phenazopyridine [Pyridium] 200 mg tablet 200 mg PO TID PRN (Reason: pain) Qty: 6 0RF ibuprofen 600 mg tablet 600 mg PO Q8H PRN (Reason: pain) Qty: 30 0RF albuterol sulfate 90 mcg/actuation HFA aerosol inhaler 2 puff inhalation Q6H PRN (Reason: shortness of breath or wheezing) Qty: 8.5 0RF prednisone 10 mg tablet 10 mg PO BID Qty: 10 0RF lorazepam [Ativan] 1 mg tablet 1 mg PO BID PRN (Reason: anxiety) Qty: 8 0RF oxycodone 5 mg capsule 5 mg PO Q8H PRN (Reason: pain) 3 Days Qty: 9 0RF Rx Instructions: Partial Fill upon patient request. Side effects of drowsiness. Not take at work or while driving venlafaxine 150 mg capsule,extended release 24hr 150 mg PO DAILY azelastine 137 mcg (0.1 %) spray,non-aerosol 2 spray intranasal BID fluticasone propionate 50 mcg/actuation spray,suspension 1 spray intranasal BID hydrocortisone 1 % cream with perineal applicator 1 appl topical BID eszopiclone 2 mg tablet 2 mg PO BEDTIME PRN (Reason: insomnia) tramadol 50 mg tablet 50 mg PO Q6H PRN (Reason: severe pain) famotidine 20 mg tablet 20 mg PO BID pantoprazole 40 mg tablet,delayed release (DR/EC) 40 mg PO DAILY buspirone 30 mg tablet 30 mg PO BID loratadine 10 mg capsule 10 mg PO DAILY risperidone [Risperdal] 2 mg tablet 2 mg PO DAILY gabapentin 100 mg capsule 100 mg PO BID Print Language: Dominican
[2024-10-03 21:33] LABS: MANUAL DIFF FLAG NO
[2024-10-03 21:35] LABS: Hematocrit 36.4 % (37.0-47.0); Hemoglobin 12.7 g/dl (12.0-16.0); Imm Gran Abs Auto 0.05 X10*3/uL (0.00-0.03); Imm Gran Pct Auto 0.5 % (0.0-0.4); Lymphocytes Absolute Auto 1.4 X10*3/uL (1.2-4.9); Mean Corpuscular HGB Conc 34.9 g/dl (31.0-35.0); Mean Corpuscular Hemoglobin 30.1 pg (27.0-33.0); Mean Corpuscular Volume 86.3 fL (80.0-98.0); NRBC Abs Auto 0.000 X10*3/uL (0.0-0.012); NRBC Pct Auto 0.0 /100WBC (0.0-0.2); Platelet Count 257 X10*3/uL (160-400); Red Blood Count 4.22 X10*6/uL (4.20-5.50); White Blood Count 10.9 X10*3/uL (4.8-10.8)
[2024-10-03 21:47] LABS: IDNOW Serial# 6674DD1D; Strep A Nucleic Acid Negative (Negative)
[2024-10-03 21:59] LABS: Alanine Aminotransferase 16 U/L (0-31); Albumin Level 4.3 g/dL (3.5-5.0); Alkaline Phosphatase 83 U/L (39-117); Anion Gap 14 (12-20); Aspartate Amino Transferase 24 U/L (5-31); Blood Urea Nitrogen 14 mg/dL (9-16); Calcium 9.1 mg/dL (8.4-10.2); Carbon Dioxide 26 mmol/L (22-29); Chloride 104 mmol/L (96-108); Creatinine Clr Calc Pharmacy 60.6; Estimated Glomerular Filt Rate > 60; Magnesium 1.9 mg/dL (1.6-2.6); Potassium 4.3 mmol/L (3.3-5.1); Sodium 140 mmol/L (135-145); Total Protein 8.1 g/dL (6.5-8.0)
--- OUTSIDE RECORDS SUMMARY | 2024-10-03 21:59 | XMS_ITS | Data Portability ---
Author Organization [facility], [address] Address [address] [place] [address] Care Team Providers Care Otc Clerk Name Role Phone DEVYN BARAKAT Primary Care Provider Assessment No assessment recorded. Plan of Treatment Reminders Order Date Submit Date Provider Last Modified By Organization Details Last Modified Time Details Appointments None recorded. Lab None recorded. Referral None recorded. Procedures None recorded. Surgeries None recorded. Imaging None recorded. Medication Orders olopatadine 0.1 % [facility]22 [facility]23 [id number] [address] [place], [address], 3 16:15:39 ciprofloxac in 0.3 % eye drops 2022 023 [id number] [address] [place], [address], 3 16:15:39 Medrol (Constantin) 4 mg tablets in a dose pack 2022 023 [id number] [address] [place], [address], 3 15:36:43 Patient TargetsNo targets recorded. Patient Instructions Encounter Date Encounter Id Patient Instructions Last Modified By Organization Details Last Modified Time 04/06/2022 [id number] Eczema: Care Instructions Not available 04/06/2022 15:22:26 [...] as you are not taking any other tveu-vix-xomgsio or prescription medications which already contain Acetaminophen (the same ingredient that is in Tylenol). Not available 04/06/2022 16:08:48 08/12/2022 [id number] Based on your presentation and exam, you [...] next 1 week. Thank you for using [facility] today, please feel free to contact us with any questions or concerns. [email or web address] Not available 08/12/2022 16:15:35 Reason for Referral None Reported. Problems Name Problem SNOMED Code Status Onset Date Resolution Date Notes Provider Name and Address Organization Details Recorded Time Gastroesophage al reflux disease 366024314 Active 2022 ANGEL lowery, PA - [facility] 3 14:39:43 Fibromyalgia 982059801 Active 2022 ANGEL lowery, PA - [facility] 3 14:39:55 Anxiety 43734668 Active 2022 ANGEL MARYAN null, PA - [facility] 3 14:40:02 Asthma 330012146 Active 2022 ANGEL lowery, PA - [facility] 3 14:40:09 Problem [...] Name and Address Organization Details Recorded Time 664585 aspirin medicatio n gi bleed Not available Not available 04/06/2022 1191 [employer] ANGEL MARYAN null, PA - [facility] 3 14:36:43 [id number] apple extract food anaphylax is Not available Not available 04/06/2022 61136 65 [facility]Norm ANGEL MARYAN null, PA - [...] MOUTH ONCE A DAY DIRECTION S IN [place] active Not Available Not Available No t [...] Heart rate Respiratory rate Body temperature Systolic And Diastolic Provider Name and Address Organization Details Last Updated DateTime 3 160.02 cm 27.6 kg/m2 60603.4 1 g 99 % 99 % 65 /min 16 /min 98.1 [degF] 129/73 mm[Hg] ANGEL MARYAN PA - [facility] 3 14:42:37 Date Recorded Body height Body mass index (BMI) Body weight Respiratory rate Oxygen saturation Oxygen saturation in Arterial blood by Pulse oximetry Heart rate Body temperature Systolic And Diastolic Provider Name and Address Organization Details Last Updated DateTime 3 160.02 cm 27.5 kg/m2 90935.8 2 g 18 /min 98 % 98 % 60 /min 98 [degF] 155/78 mm[Hg] KERLINE TRA PA - [facility] 3 15:39:54 Social History Question Answer Notes LastModified by [employer] Details LastModified Time Tobacco Smoking Status Never Smoker KERLINE lowery PA - [facility] 08/12/2022 15:38:01 Have You Recently Traveled Abroad? No [email or web address] Information not available 08/12/2022 Sex: Unknown Functional Status Question Answer Note LastModified by [employer] Details LastModified Time Do you use any illicit or recreational drugs? No Information not available 08/12/2022 Do you or have you ever used any other forms of tobacco or nicotine? No [email or web address] Information not available 08/12/2022 What is your level of alcohol consumption? None [email or web address] Information not available 08/12/2022 Mental Status None recorded. Family History Nothing [...] SNOMED-CT Code Diagnosis ICD10 Code Diagnosis Note [id number] [facility] [address] [facility] [address] [place] [address] 03/14/2018 16:16:14 03/14/2018 16:59:15 [id number] Carmen Preciado MD [facility] [address] [place] [address] 04/06/2022 13:41:28 04/06/2022 15:30:14 Pruritic disorder 348124299 L29.9 You will need to follow up with your PCP or a specialist such as an Lead Systems Developer for this ongoing symptom [id number] [place] [address] [address] [place] [phone] 08/12/2022 13:52:50 08/12/2022 16:17:02 Allergic conjunctivitis 270226871 H10.13 Blood pressure was elevated - try and monitor. Avoid Decongesta nts. Health Concerns Section Related Observation LastModified by Organization Detai ls LastModified Time None Recorded Concern Status LastModified by Organization Details LastModified Time None Recorded Advance Directives Directive None Recorded Payers Insurance Date Sequence Insurance Name Policy Number Policy Caraballo Covered Member ID Caraballo Member ID Guarantor Name 08/12/2022 1 [facility] NET PLAN (MEDICAID HMO) DAVID Nila Eldridge [id number] Nila Banks Notes Date Note Type Note Provider Name and Address Organization Details Recorded Time 3 text/html Rash / Skin LesionReported bypatient.Quality:itchy Context:No new products, detergents, creams, soaps, TRuied antihistamines and one ciourse steroiid 2 weeks ago. has been to both PCP and UCNotes:No rash present.Feels very itchy Carmen Preciado MD [facility] [place], [address], PA - [facility] 04/06/2022 16:09:05 3 [...] it is so irritating. ADRYAN MARTINEZ [address] [place], [address], PA - [facility] 08/12/2022 16:20:55 OBGyn Episode No OBEpisode recorded.
[2024-10-03 22:05] VITALS: BP 121/57; PULSE 73; RESP 18; TEMP 37.3; O2SAT 96
[2024-10-03 22:07] LABS: Troponin-I High Sensitivity < 2.7 ng/L (<3.5-17.0)
[2024-10-03 22:12] LABS: Resp Syncy Virus RNA Qual PCR NEGATIVE (Negative); SARS COV2 PCR INHOUSE NEGATIVE (Negative)
[2024-10-03 23:24] VITALS: BP 121/57; PULSE 73; RESP 18; TEMP 37.3; O2SAT 96
== END 2024-10-03 23:28 | disposition home or self-care (01) ==
PROVIDERS: Physician Assistant Medical; Emergency Provider Emergency Medicine; PCP Internal Medicine
DX: B34.9 Viral infection, unspecified (principal); R51.9 Headache, unspecified; R11.0 Nausea; R53.81 Other malaise
CPT/HCPCS: 71046; 80048; 80076; 83735; 84484; 85025; 87637; 87651; 99283; 99284

== ENCOUNTER → 2024-10-03 20:49 | Outpatient (BNV) | payer OTHER, SELFPAY | PROVIDERS: PCP Internal Medicine; Visit Provider Radiology Diagnostic Radiology | DX: R05.9 Cough, unspecified (principal); R50.9 Fever, unspecified | CPT/HCPCS: 71046 ==

== ENCOUNTER 2024-12-29 19:56 | Emergency (ER) | payer OTHER, SELFPAY ==
--- OUTSIDE RECORDS SUMMARY | 2024-01-01 14:30 | XMS_ITS | Encounter Summary ---
Author Organization [facility] Address [address] [place] [address] Care Team Providers Care [employer] Name Role Phone Daphne Almanza MD Primary Care Provider [phone] Encounter Details Date Type Department Care Team (Late st Contact Info) Description 01/01/2024 2:30 PM EDT Hospital Encounter TH HISTORIC ENCOUNTERS [facility] CONVERSION ONLY Daphne Almanza MD [address] [place], [place] Social History Tobacco Use Types Packs/Day [...] care for your loved ones. For example, childbirth educator or elderly care for an older adult? [...] 04/17/2024 8:59 PM Rosalind Thompson RN * [place] Suicide Severity Rating Scale (Screener/Recent Self-Report) Question [...] 2:40 PM EST Office Visit Gastroenterology - [place] [address] [phone] Chasity Kruse NP [address] [address] 03/05/2025 11:00 AM EST Office Visit Adult Medicine [address] [phone] Daphne Almanza MD [address] [place] [address] documented as of this encounter Visit Diagnoses Not on filedocumented in this encounter Care Teams [employer] Relationship Specialty Start Date End Date Daphne Almanza MD [address] [place] [address] PCP - General Internal Medicine 11/30/13 documented as of this encounter
--- NOTE | ~2024-12-29 | CT_ITS ---
CLINICAL HISTORY: headache x 2 months, htn CT head without contrast Comparison: CT/SR - CT HEAD WITHOUT IV CONTRAST - 03/15/23 19:24 EST Findings: The size and shape of the ventricular system is within normal limits for this patient's age. Attenuation of the brain parenchyma is within normal limits for this patient's age. Forrest-white differentiation is well preserved. No midline shift or mass effect. No intracranial hemorrhage. Partially empty sella is again identified with unchanged expansion of the sella turcica. No calvarial fractures. Moderate mucosal thickening within the left ethmoid air cells with air-fluid level identified within an atelectatic left maxillary sinus. IMPRESSION: 1. No acute intracranial findings. Specifically, no hemorrhage or mass effect. 2. Partially empty sella is again identified. 3. Left ethmoid and left maxillary sinus disease. This may be the etiology of the patient's headaches. This document has been electronically signed by: Ayo Arango MD on 12/29/2024 21:03:51
[2024-12-29 19:59] VITALS: BP 171/76; PULSE 74; RESP 18; TEMP 36.9; O2SAT 94; BMI 26.2
--- NOTE | 2024-12-29 20:04 | ED.GENADULT ---
HPI - General Adult General Chief complaint: Headache Stated complaint: headache Time Seen by Provider: 12/29/24 22:35 Source: patient Mode of arrival: ambulatory Limitations: no limitations History of Present Illness ED Provider: Dr. Jessica Silveira HPI narrative: 64-year-old female with history of fibromyalgia and acid reflux presenting with headaches that have been ongoing for the last 2 months. Describes waking up every morning with a headache. Admits that throughout the day the headaches do improve, sometimes with Tylenol sometimes without. Admits that today her headache had become severe and her blood pressure was high. The pain is described as an ache that begins in her neck and radiates to the front of her head. Pain is worse with movement and exertion and better with rest. Denies associated fevers, vision changes, abdominal pain, nausea or vomiting, chest pain, difficulty breathing, bowel changes, urinary complaints, or skin rashes, known sick contacts or recent travel. Related Data Home Medications ?Medication ?Instructions ?Recorded ?Confirmed buspirone 30 mg tablet 30 mg PO BID 03/04/20 03/04/20 famotidine 20 mg tablet 20 mg PO BID 03/04/20 03/04/20 loratadine 10 mg capsule 10 mg PO DAILY 03/04/20 03/04/20 pantoprazole 40 mg tablet,delayed 40 mg PO DAILY 03/04/20 03/04/20 release risperidone 2 mg tablet (Risperdal) 2 mg PO DAILY 10/13/20 gabapentin 100 mg capsule 100 mg PO BID 02/28/24 azelastine 137 mcg (0.1 %) nasal 2 spray intranasal BID 05/01/24 spray eszopiclone 2 mg tablet 2 mg PO BEDTIME PRN insomnia 05/01/24 fluticasone propionate 50 1 spray intranasal BID 05/01/24 mcg/actuation nasal spray,suspension hydrocortisone 1 % topical cream 1 appl topical BID 05/01/24 with perineal applicator tramadol 50 mg tablet 50 mg PO Q6H PRN severe pain 05/01/24 venlafaxine 150 mg 150 mg PO DAILY 05/01/24 capsule,extended release 24 hr Previous Rx's ?Medication ?Instructions ?Recorded docusate sodium 100 mg capsule 200 mg (2 x 100 mg) PO DAILY #60 03/27/21 (Colace) caps polyethylene glycol 3350 17 17 g PO DAILY #510 grams 03/27/21 gram/dose oral powder (Miralax) lorazepam 1 mg tablet (Ativan) 1 mg PO BID PRN anxiety #8 tabs 12/16/22 phenazopyridine 200 mg tablet 200 mg PO TID PRN pain 6 doses #6 03/10/24 (Pyridium) tabs ibuprofen 600 mg tablet 600 mg PO Q8H PRN pain #30 tabs 04/05/24 oxycodone 5 mg capsule 5 mg PO Q8H PRN pain 3 days #9 caps 05/01/24 albuterol sulfate 90 mcg/actuation 2 puff inhalation Q6H PRN 07/03/24 aerosol inhaler shortness of breath or wheezing #8.5 grams prednisone 10 mg tablet 10 mg PO BID #10 tabs 07/03/24 ibuprofen 600 mg tablet 600 mg PO Q8H PRN fever or pain 10/03/24 #30 tabs ondansetron 4 mg disintegrating 4 mg PO Q6H PRN nausea and 10/03/24 tablet vomiting #10 tabs kzoioqtogi-vmoziitfkadhz-otrqkwgn 1 cap PO TID PRN headache #10 caps 12/30/24 50 mg-300 mg-40 mg capsule (Fioricet) Allergies Allergy/AdvReac Type Severity Reaction Status Date / Time aspirin (ASA) Allergy Intermediate NAUSEA & Verified 12/29/24 20:05 VOMITING, stomach upset, nausea and vomiting pineapple Allergy Itching Verified 12/29/24 20:05 Review of Systems Review of Systems: as per HPI, full review of systems performed and negative but for the above mentioned pertinent positives and negatives. PMFSH Past Medical History Medical History Carpal tunnel syndrome Asthma Vocal cord anomaly Bloating Acid reflux Surgical History Hx of tubal ligation Social History Social History Household Members Other:: alone Alcohol intake: never Patient Tobacco Use Status: Former Tobacco user Tobacco use type: Cigarette Years Smoked: quit 12 years ago Smoked in Last 30 Days: No Use of substances other than those prescribed or required for medical reasons: No Advance Directives: No Advance Directives Information Provided: No Patient : No Current occupational status: unemployed Physical Exam ED Exam Exam: GENERAL: Ill-Appearing, appears uncomfortable. SKIN: Normal skin color for ethnicity, warm, dry, no rashes noted. HEENT:? Normocephalic, atraumatic, no stridor, dry mucous membranes, dentition intact, EOMI. NECK: Soft, supple, full ROM, midline structures nontender, no step-offs, no deformities, no lymphadenopathy. CHEST: Heart regular rhythm, no murmurs, symmetric chest rise and fall. PULMONARY: Clear to auscultation bilaterally, diminished at the bases, no labored breathing, no wheezes/rhales/rhonchi. ABDOMINAL: Soft, nondistended, nontender, positive bowel sounds in all quadrants. : Deferred. MUSCULOSKELETAL: Normal tone, full range of motion, no deformities, no peripheral edema. NEURO: Alert and oriented x3, CN II through XII intact, equal strength and sensation bilateral upper and lower extremities, no focal neurologic deficits.? PSYCHIATRIC: Flat affect, fluid speech, good eye contact and appropriate demeanor. Vital Signs: Vital Signs - 24 hr 12/29/24 19:59 12/30/24 00:53 Temperature 98.4 F 97.8 F Pulse Rate 74 57 Respiratory Rate 18 16 Blood Pressure 171/76 H 171/83 H Pulse Oximetry 94 98 Oxygen Delivery Method Room Air Room Air BMI result Body Mass Index 26.2 Course Course Course Narrative: This is an RME done by [facility]: Additional HPI, ROS, PE not included below will be deferred to primary provider. 63 year old female presents w/ headache x 2 months intermittently currently has a headache 5/10. Also has been noted to be hypertensive. Medications Administered Discontinued Medications Generic Name Dose Route Start Last Admin Trade Name Freq PRN Reason Stop Dose Admin Acetaminophen/Butalbital/Caffeine 1 tab 12/30/24 00:11 12/30/24 00:50 Butalb/Acetamin/Caff 50/325/40 Tablet PO 12/30/24 00:12 1 tab ONCE ONE Administration Medical Decision Making Medical Decision Making [facility] Narrative: Patient presents with a chief complaint of headache. ? The differential diagnosis on this patient includes but is not limited to migraine headache, tension headache, cluster headache, subarachnoid hemorrhage, dissection, venous thrombosis, meningitis, sinusitis, bleeding or tumor.? Based on history and physical exam, appropriate work-up was initiated. ? Medicated with fioricet for headache. Patient improved after fioricet. Workup is benign. Using shared decision making, plan for discharge home to follow-up with primary care and/or specialist.? Patient understands and agrees with plan for discharge.? Discharged home in stable condition. Differential Diagnosis Differential Diagnoses: The differential diagnosis associated with the presentation includes (as above) Admission/Observation Consideration of admission/observation: Escalation of care including admission/observation considered Lab Data MDM Lab Attestation statement: I reviewed the patient's lab results. 12/29/24 21:31 12/29/24 21:31 Labs: Lab Results 12/29/24 Range/Units 21:31 WBC 6.6 (4.8-10.8) X10*3/uL RBC 3.85 L (4.20-5.50) X10*6/uL Hgb 11.7 L (12.0-16.0) g/dl Hct 33.2 L (37.0-47.0) % MCV 86.2 (80.0-98.0) fL MCH 30.4 (27.0-33.0) pg MCHC 35.2 H (31.0-35.0) g/dl RDW 13.6 (11.0-16.0) % Plt Count 242 (160-400) X10*3/uL MPV 10.0 (9.4-12.3) fL Immature Gran % (Auto) 0.2 (0.0-0.4) % Neut % (Auto) 50.4 (45-73) % Lymph % (Auto) 34.1 (20-40) % Titus % (Auto) 11.5 H (2-11) % Eos % (Auto) 3.0 (0-4) % Baso % (Auto) 0.8 (0-2) % Lymph # (Auto) 2.3 (1.2-4.9) X10*3/uL Titus # (Auto) 0.8 (0.1-1.2) X10*3/uL Eos # (Auto) 0.2 (0.0-0.4) X10*3/uL Baso # (Auto) 0.1 (0.0-0.2) X10*3/uL Abs Immat Gran (auto) 0.01 (0.00-0.03) X10*3/uL Absolute Neuts (auto) 3.3 (2.0-8.3) x10*3/uL Absolute Nucleated RBC 0.000 (0.0-0.012) X10*3/uL Nucleated RBC % (auto) 0.0 (0.0-0.2) /100WBC Sodium 141 (135-145) mmol/L Potassium 3.8 (3.3-5.1) mmol/L Chloride 107 (96-108) mmol/L Carbon Dioxide 27 (22-29) mmol/L Anion Gap 11 L (12-20) BUN 17 H (9-16) mg/dL Creatinine 0.78 (0.5-1.4) mg/dL Estim Creat Clear Calc 67.1 Estimated GFR > 60 Random Glucose 104 (60-115) mg/dL Calcium 8.7 (8.4-10.2) mg/dL Magnesium 2.0 (1.6-2.6) mg/dL Total Bilirubin 0.1 (0.0-1.0) mg/dL AST 21 (5-31) U/L ALT 17 (0-31) U/L Alkaline Phosphatase 79 (39-117) U/L Total Protein 7.4 (6.5-8.0) g/dL Albumin 4.1 (3.5-5.0) g/dL Radiology Impression Discussion of test interpretation with radiology: I have reviewed the radiologist's reading. External Record Review External record reviewed: Inpatient record Chronic Conditions Patient?s care impacted by: Hypertension and Other (FM) Social Determinants Patient?s care significantly limited by Social Determinants of Health including: Other Social Determinant of Health Discharge Plan Discharge Clinical Impression: Recurrent occipital headache, Torticollis Patient Disposition: Home, Self-Care Instructions: General Headache (ED), Neck Pain (ED) Additional Instructions: Use Fioricet for headaches as needed. Continue using your muscle relaxers as well but be careful mixing these medications as the combination can make you drowsy. Return to the ER with any new or worsening symptoms including: Worsening headaches despite medications, fevers greater than 100?, vomiting, any new symptom that concerns you. Call 911 with any medical emergency. Prescriptions: New bbzjcpnpra-busiggimmymca-jwhu [Fioricet] 50-300-40 mg capsule 1 cap PO TID PRN (Reason: headache) Qty: 10 0RF No Action docusate sodium [Colace] 100 mg capsule 200 mg PO DAILY Qty: 60 0RF polyethylene glycol 3350 [Miralax] 17 gram/dose powder 17 g PO DAILY Qty: 510 0RF phenazopyridine [Pyridium] 200 mg tablet 200 mg PO TID PRN (Reason: pain) Qty: 6 0RF ibuprofen 600 mg tablet 600 mg PO Q8H PRN (Reason: pain) Qty: 30 0RF albuterol sulfate 90 mcg/actuation HFA aerosol inhaler 2 puff inhalation Q6H PRN (Reason: shortness of breath or wheezing) Qty: 8.5 0RF prednisone 10 mg tablet 10 mg PO BID Qty: 10 0RF lorazepam [Ativan] 1 mg tablet 1 mg PO BID PRN (Reason: anxiety) Qty: 8 0RF oxycodone 5 mg capsule 5 mg PO Q8H PRN (Reason: pain) 3 Days Qty: 9 0RF Rx Instructions: Partial Fill upon patient request. Side effects of drowsiness. Not take at work or while driving venlafaxine 150 mg capsule,extended release 24hr 150 mg PO DAILY azelastine 137 mcg (0.1 %) spray,non-aerosol 2 spray intranasal BID fluticasone propionate 50 mcg/actuation spray,suspension 1 spray intranasal BID hydrocortisone 1 % cream with perineal applicator 1 appl topical BID eszopiclone 2 mg tablet 2 mg PO BEDTIME PRN (Reason: insomnia) tramadol 50 mg tablet 50 mg PO Q6H PRN (Reason: severe pain) ibuprofen 600 mg tablet 600 mg PO Q8H PRN (Reason: fever or pain) Qty: 30 0RF ondansetron 4 mg tablet,disintegrating 4 mg PO Q6H PRN (Reason: nausea and vomiting) Qty: 10 0RF famotidine 20 mg tablet 20 mg PO BID pantoprazole 40 mg tablet,delayed release (DR/EC) 40 mg PO DAILY buspirone 30 mg tablet 30 mg PO BID loratadine 10 mg capsule 10 mg PO DAILY risperidone [Risperdal] 2 mg tablet 2 mg PO DAILY gabapentin 100 mg capsule 100 mg PO BID Interventions: ED Discharge Assessment Last Done: 12/30/24 04:13 Discharge Date/Time: 12/30/24 04:13 Print Language: Prydeinig
--- OUTSIDE RECORDS SUMMARY | 2024-12-29 21:21 | XMS_ITS | Encounter Summary ---
Author Organization [facility] Address [address] [place] [address] Care Team Providers Care Chemistry Teacher Name Role Phone Daphne Almanza MD Primary Care Provider [phone] Daphne Almanza MD Unavailable [phone] Reason for Visit * Reason Onset Date Comments Provider Call Back 04/05/2021 Encounter Details Date Type Department Care Team Description 04/05/2021 Telephone Gastroenterology - [place] [address] [facility] [address] [place] [address] Andrew Nino PA-C Provider Call Back Social History Tobacco Use [...] feels it's not working. She went to [facility] yesterday but they didn't find anything wrong, [...] patient cant wait that long please call [phone] documented in this encounter Plan of Treatment Not on file documented as of this encounter Visit Diagnoses Not on filedocumented in this encounter Care Teams Chemistry Teacher Relationship Specialty Start Date End Date Daphne Almanza MD [address] [place] [address] PCP - General Internal Medicine 07/31/15 Daphne Almanza MD [address] [place] [address] 07/29/15 documented as of this encounter
--- OUTSIDE RECORDS SUMMARY | 2024-12-29 21:21 | XMS_ITS | Encounter Summary ---
Author Organization [facility] Address [address] [place] [address] Care Team Providers Care Campus President Name Role Phone Daphne Almanza MD Primary Care Provider [phone] Daphne Almanza MD Unavailable [phone] Reason for Visit * Reason Onset Date Comments Provider Call Back 04/27/2021 Encounter Details Date Type Department Care Team Description 04/27/2021 Telephone Gastroenterology - [place] [address] [facility] [address] [place] [address] Andrew Nino PA-C Provider Call [...] on filedocumented in this encounter Care Teams Campus President Relationship Specialty Start Date End Date Daphne Almanza MD [address] [place] [address] PCP - General Internal Medicine 07/31/15 Daphne Almanza MD [address] [place] [address] 07/29/15 documented as of this encounter
--- OUTSIDE RECORDS SUMMARY | 2024-12-29 21:21 | XMS_ITS | Encounter Summary ---
Author Organization [facility] Address [address] [facility] [place] [address] Care Team Providers Care Movie Editor Name Role Phone Daphne Almanza MD Primary Care Provider [phone] Daphne Almanza MD Unavailable [phone] Encounter Details Date Type Department Care Team Description 06/07/2021 Channel Supervisor Report Medical Records [address] [place] [address] Victor Hugo Mckeon PA Social History Tobacco [...] on filedocumented in this encounter Care Teams Movie Editor Relationship Specialty Start Date End Date Daphne Almanza MD [address] [place] [address] PCP - General Internal Medicine 07/31/15 Daphne Almanza MD [address] [place] [address] 07/29/15 documented as of this encounter
--- OUTSIDE RECORDS SUMMARY | 2024-12-29 21:21 | XMS_ITS | Encounter Summary ---
Author Organization [facility] Address [address] [place] [address] Care Team Providers Care Color Television Console Monitor Name Role Phone Daphne Almanza MD Primary Care Provider [phone] Daphne Almanza MD Unavailable [phone] Reason for Visit * Reason Onset Date Comments Medication 06/22/2021 Encounter Details Date Type Department Care Team Description 06/22/2021 Refill Gastroenterology - [place] [address] [facility] [address] [place] [phone] Pavan Ozuna MD [address] [facility] [address] [place] [address] Medication Social History Tobacco Use Types Packs/Day [...] on filedocumented in this encounter Care Teams Color Television Console Monitor Relationship Specialty Start Date End Date Daphne Almanza MD [address] [place] [address] PCP - General Internal Medicine 07/31/15 Daphne Almanza MD [address] [place] [address] 07/29/15 documented as of this encounter
--- OUTSIDE RECORDS SUMMARY | 2024-12-29 21:21 | XMS_ITS | Encounter Summary ---
Author Organization [facility] Address [address] [place] [address] Care Team Providers Care Museum Archivist Name Role Phone Daphne Almanza MD Primary Care Provider [phone] Daphne Almanza MD Unavailable [phone] Reason for Visit * Reason Comments E-prescribe Rx Request Encounter Details Date Type Department Care Team Description 06/16/2023 Refill Gastroenterology - [address] [place] [phone] Andrew Nino PA-C E-prescribe Rx Request Social History Tobacco [...] on filedocumented in this encounter Care Teams Museum Archivist Relationship Specialty Start Date End Date Daphne Almanza MD [address] [place] [phone] PCP - General Internal Medicine 07/31/15 Daphne Almanza MD [address] [place] [address] 07/29/15 documented as of this encounter
--- OUTSIDE RECORDS SUMMARY | 2024-12-29 21:21 | XMS_ITS | Encounter Summary ---
Author Organization [facility] Address [address] [place] [address] Care Team Providers Care Cullet Crusher And Washer Name Role Phone Daphne Almanza MD Primary Care Provider [phone] Daphne Almanza MD Unavailable [phone] Reason for Visit * Reason Onset Date Comments er follow up 07/12/2018 [facility] Encounter Details Date Type Department Care Team Description 07/12/2018 Telephone Adult Medicine [facility] [place] [place] [address] [place] [phone] Daphne Almanza MD [address] [place] [address] [phone] er follow up ([facility]) Social History Tobacco Use Types [...] PA-C Hospital/ center patient was treated at: [facility] Date of visit: 07/10/18 Was this [...] for pt to return my call Needs [facility] er f/u appt for Fx 5th right metacarpal. documented in this encounter Plan of Treatment Not on file documented as of this encounter Visit Diagnoses Not on filedocumented in this encounter Care Teams Cullet Crusher And Washer Relationship Specialty Start Date End Date Daphne Almanza MD [address] [place] [address] PCP - General Internal Medicine 07/31/15 Daphne Almanza MD [address] [place] [address] 07/29/15 documented as of this encounter
--- OUTSIDE RECORDS SUMMARY | 2024-12-29 21:21 | XMS_ITS | Encounter Summary ---
Author Organization [facility] Address [address] [place] [address] Care Team Providers Care Biometric Screener Name Role Phone Daphne Almanza MD Primary Care Provider [phone] Daphne Almanza MD Unavailable [phone] Encounter Details Date Type Department Care Team Description 03/29/2023 Orders Only Medical Records [address] [place] [phone] Kayode Daniels MD Social History Tobacco Use [...] on filedocumented in this encounter Care Teams Biometric Screener Relationship Specialty Start Date End Date Daphne Almanza MD [address] [place] [address] PCP - General Internal Medicine 07/31/15 Daphne Almanza MD [address] [place] [address] 07/29/15 documented as of this encounter
--- OUTSIDE RECORDS SUMMARY | 2024-12-29 21:21 | XMS_ITS | Encounter Summary ---
Author Organization [facility] Address [address] [place] [address] Care Team Providers Care Residency Coordinator Name Role Phone Daphne Almanza MD Primary Care Provider [phone] Daphne Almanza MD Unavailable [phone] Reason for Visit * Reason Onset Date Comments TEST RESULTS 09/14/2018 Encounter Details Date Type Department Care Team Description 09/14/2018 Telephone Adult Medicine [facility] [address] [place] [phone] Daphne Almanza MD [address] [place] [address] [phone] TEST RESULTS Social History Tobacco Use Types [...] a call back. Her voicemail was in hungarian so im not sure if she understood. If no answer by the end of the day I will have someone who speaks hungarian call documented in this encounter Plan of Treatment Not on file documented as of this encounter Visit Diagnoses Not on filedocumented in this encounter Care Teams Residency Coordinator Relationship Specialty Start Date End Date Daphne Almanza MD [address] [place] [address] PCP - General Internal Medicine 07/31/15 Daphne Almanza MD [address] [place] [address] 07/29/15 documented as of this encounter
--- OUTSIDE RECORDS SUMMARY | 2024-12-29 21:21 | XMS_ITS | Encounter Summary ---
Author Organization [facility] Address [address] [place] [address] Care Team Providers Care Health Systems Analyst Name Role Phone Daphne Almanza MD Primary Care Provider [phone] Daphne Almanza MD Unavailable [phone] Encounter Details Date Type Department Care Team Description 12/05/2018 Transit Manager Report Medical Records [address] [place] [address] Kayode Daniels MD Social History Tobacco Use [...] on filedocumented in this encounter Care Teams Health Systems Analyst Relationship Specialty Start Date End Date Daphne Almanza MD [address] [place] [address] PCP - General Internal Medicine 07/31/15 Daphne Almanza MD [address] [place] [address] 07/29/15 documented as of this encounter
--- OUTSIDE RECORDS SUMMARY | 2024-12-29 21:22 | XMS_ITS | Encounter Summary ---
Author Organization [facility] Address [address] [place] [address] Care Team Providers Care As400 Consultant Name Role Phone Daphne Almanza MD Primary Care Provider [phone] Daphne Almanza MD Unavailable [phone] Reason for Visit * Reason Onset Date Comments Provider Call Back 09/15/2020 Encounter Details Date Type Department Care Team Description 09/15/2020 Telephone Adult Medicine [facility] [address] [place] [phone] Daphne Almanza MD [address] [place] [address] Provider Call Back Social History Tobacco Use [...] appt On 09/30/20 at 3:30pm in our [facility] [place] office with the allergy Dr Luz Verduzco [...] on filedocumented in this encounter Care Teams As400 Consultant Relationship Specialty Start Date End Date Daphne Almanza MD [address] [place] [address] PCP - General Internal Medicine 07/31/15 Daphne Almanza MD [address] [place] [address] 07/29/15 documented as of this encounter
--- OUTSIDE RECORDS SUMMARY | 2024-12-29 21:22 | XMS_ITS | Clinical Summary ---
Author Organization [facility] [address] [facility] Address [address] [place], [place] Phone Care Team Providers Care Pasta Maker Name Role Phone Daphne Almanza MD Primary Care Provider [phone] Allergies Active Allergy Reactions Criticality Noted Date Comments Aspirin 08/14/2015 GI upset with this and Motrin Pineapple 09/30/2020 Throat discomfort with fresh pineapple- oral allergy syndrome Medications fluticasone propionate (FLONASE) 50 mcg/actuation nasal spray INSTILL 1 SPRAY INTO EACH NOSTRIL TWICE A DAY. 48 mL 5 02/28/20 24 Active eszopiclone (LUNESTA) 2 mg tablet 11/15/19 23 Active famotidine (PEPCID) 20 mg tablet Take 1 Tablet by mouth 2 times daily as needed for Heartburn. 02/24/20 23 Active risperiDONE (RisperDAL) 2 mg tablet 07/22/19 16 Active venlafaxine XR (EFFEXOR-XR) 150 mg 24 hr capsule 150 mg. 1 Tab daily 07/22/19 16 Active albuterol HFA (ProAir HFA) 90 mcg/actuation inhaler Take 2 Puffs by mouth every 4 hours as needed for Cough or Wheezing. 2 Puffs every 4 hours as needed 02/07/20 23 Active pantoprazole (PROTONIX) 40 mg EC tablet TAKE 1 TABLET TWICE A DAY BEFORE MEALS ON EMPTY STOMACH WAIT 30 MINS THEN EAT TO ACTIVATE MEDICATION 180 tablet 4 07/09/19 25 Active fexofenadine (LUANA) 180 mg tablet Take 1 tablet (180 mg total) by mouth 1 (one) time each day. 90 tablet 1 07/19/19 25 Active gabapentin (NEURONTIN) 300 mg capsule Take 1 capsule (300 mg total) by mouth at bedtime. 90 capsule 1 10/17/19 25 Active gabapentin (NEURONTIN) 100 mg capsule Take 1 capsule (100 mg total) by mouth 2 (two) times a day. 180 each 1 10/17/19 25 026 Active azelastine (ASTELIN) 137 mcg (0.1 %) nasal spray INSTILL 1 SPRAY INTO EACH NOSTRIL 2 TIMES A DAY. 30 mL 3 12/05/19 25 Active methocarbamoL (ROBAXIN) 750 mg tablet Take 1 tablet (750 mg total) by mouth at bedtime for 7 days. 7 each 12/18/19 25 Active acetaminophen (TYLENOL 8 HOUR) 650 mg 8 hr tablet TOME CHARLES ASHWIN LUNA AL AYAZ 06/16/19 24 025 Discontinued(Th erapy completed) busPIRone (BUSPAR) 30 mg tablet TOME CHARLES ASHWIN LUNA AL D A 11/20/19 23 025 Discontinued(Th erapy completed) LORazepam (ATIVAN) 0.5 mg tablet JENNYFER LOONEY 12/29/19 23 025 Discontinued(Th erapy completed) oxyCODONE (OXY-IR) 5 mg immediate release capsule TAKE 1 CAPSULE BY MOUTH EVERY 8 HOURS NEEDED FOR PAIN FOR 3 DAYS 05/01/19 25 025 Discontinued(Th erapy completed) aluminum-magne sium hydroxide-nicole thicone (MAALOX) 200-200-20 mg/5 mL suspension Take 30 mL by mouth 4 (four) times a day (before meals and nightly). 769 mL 11 05/06/19 25 025 Discontinued(Th erapy completed) loperamide (Imodium A-D) 2 mg tablet Take 1 tablet (2 mg total) by mouth 4 (four) times a day if needed for diarrhea. 60 tablet 11 05/10/19 025 Discontinued( erapy completed) ondansetron (ZOFRAN) 4 mg tablet Take 1 tablet (4 mg total) by mouth 3 (three) times a day. 50 tablet 6 05/10/19 25 025 Discontinued( erapy completed) olopatadine (PATANOL) 0.1 % ophthalmic solution Administer 1 drop into both eyes 2 (two) times a day if needed for allergies. 5 mL 1 07/19/19 25 025 Discontinued( erapy completed) azelastine (ASTELIN) 137 mcg (0.1 %) nasal spray Administer 1 spray into each nostril 2 (two) times a day. 30 mL 1 08/27/19 025 Discontinued methocarbamoL (ROBAXIN) 500 mg tablet Take 1 tablet (500 mg total) by mouth at bedtime as needed for muscle spasms. 30 tablet 10/17/19 025 Discontinued( erapy completed) Active Problems Problem Noted Date Diagnosed Date Diverticulosis 03/08/2024 Seasonal allergies 03/08/2024 Gastroesophageal reflux disease 04/06/2022 Anxiety 04/06/2022 COVID-19 virus infection 11/30/2021 Overview (03/08/2024): 8.28.22 Chronic insomnia 07/13/2021 Hypersomnolence 07/13/2021 Snoring 07/13/2021 Obstructive sleep apnea 05/24/2021 Overview (03/08/2024): [facility] Home sleep test 05/13/2021; weight 155; BMI 27; AHI 6, AI 1, HI 5. 7 obstructive apneas, 1 central apnea and 31 hypopneas. Average oxygen saturation 95% with oxygen graciela 85%. Obstructive sleep apnea-mild with mostly hypopneas and some obstructive and central apneas without nocturnal hypoxemia based on 2021 home sleep test. Fibromyalgia 12/27/2019 Overview (03/08/2024): Dr. Padilla ([facility]) Bilateral carpal tunnel syndrome 05/09/2018 Overview (03/08/2024): S/p release on left side only Overweight (BMI 25.0-29.9) 05/09/2018 Panic attack 05/09/2018 Overview (03/08/2024): Dr. Kumar at [facility] Right ovarian cyst 05/09/2018 Overview (10/16/2024): Reviewed CT results from March 2021 with [...] depression 08/14/2015 Overview (03/08/2024): Dr. Kumar at [facility] Asthma 08/14/2015 GERD (gastroesophageal reflux disease) 6 Resolved Problems Problem Noted Date Diagnosed Date Resolved Date Pelvic pressure in female 04/25/2024 Assessment [...] to monitor if not improving, can return. Rectal pain 03/08/2024 10/16/2024 Encounters Date Type Department Care Team Description 12/17/2024 4:30 PM EDT Office Visit Adult Medicine [address] [phone] Mavis Osborn PA Cervicogenic headache (Primary Dx) 10/16/2024 2:00 PM EDT Office Visit Adult Medicine [address] [address] Daphne Almanza MD Acute nonintractable headache, unspecified headache type (Primary Dx); Gastroesophageal reflux disease without esophagitis; Moderate persistent asthma without complication; Fibromyalgia 10/15/2024 Nurse Triage Adult Medicine [address] [address] Daphne Almanza MD from Last 3 Months Immunizations Immunization Administration Dates Next Due Influenza Quadravalent, MDCK , 0.5ml, preservative free (Flucelvax) 6mo and older 02/06/2023,12/21/2021,03/04/2021,02/10 Influenza Quadrivalent, 0.5m l, preservative free (Fluarix; FluLaval; Fluzone) ages 6mo and older (Afluria) 3yo and older 03/10/2019,03/04/2015 Influenza Split 02/19/2013,01/13/2012 Influenza trivalent, 0.5mL, preservative free (Fluarix; FluLaval; Fluzone) ages 6mo and older (Afluria) 3 years and older 12/08/2023,03/10/2019,02/19/2013,01/12 Influenza trivalent, with pr eservative (Fluzone; Afluria) 6mo and older 12/08/2023,05/11/2016,03/04/2015 Wriggle/Cognea SARS-CoV-2 COVID -19, vector-nr, rS-Ad26, preservative free 02/11/2021,06/19/2020 MMR, measles mumps and rubel la Live (Priorix; M-M-R II) 12mo and older 07/26/2011 Pneumococcal Conjugate Vacci ne, 7 Valent 12/19/2006 Pneumococcal conjugate 20 va lent (Prevnar 20, PCV 20) 2mo and older 07/18/2024 Pneumococcal polysaccharide 23 valent (Pneumovax 23) 2yo and older 05/09/2018 Td Tetanus diptheria (Tdvax) 7yo and older 05/09/2018 Tdap Tetanus diptheria acell ular pertussis (Boostrix; Adacel) 7yo and older 07/26/2011 Surgical History Surgery Date Site/Laterality Comments TUBAL LIGATION ESOPHAGOGASTRODUODENOSCOPY 08/20/2015 small H/H o/w normal. COLONOSCOPY 04/20/2012 r - normal CARPAL TUNNEL RELEASE Left ESOPHAGOGASTRODUODENOSCOPY 08/26/2019 - 09/24/201908/[address] Ozuna PARTIAL HYSTERECTOMY : fibroids and menorrhagia Medical History Medical History Date Comments Asthma 08/14/2015 Anxiety 08/14/2015 GERD (gastroesophageal reflux disease) 6 Thyroid nodule 05/09/2017 Seasonal allergies Globus sensation Hiatal hernia Diverticulosis Depressive disorder Hyperlipidemia Constipation COVID-19 virus infection 11/30/2021 : 8.28. 22 Fibromyalgia 12/27/2019 Dr. Padilla ([facility]) Obstructive sleep apnea 05/24/2021 [facility] Home sleep test 05/13/2021; weight 155; BMI 27; AHI 6, AI 1, HI 5. 7 obstructive apneas, 1 central apnea and 31 hypopneas. Average oxygen saturation 95% with oxygen graciela 85%. Obstructive sleep apnea-mild with mostly hypopneas and some obstructive and central apneas without nocturnal hypoxemia based on 2021 home sleep test. Family History Medical History Relation Name Comments Uterine cancer Aunt 1 maternal breast cancer (?) Breast cancer Aunt 2 maternal laterality (?) Heart attack Brother x 4 s/p stenting; H LD, HTN, diabetes Alcohol abuse Father ?pancreatic is sues Diabetes Half-Brother x 2 Diabetes Half-Sister x 2 HLD Colon cancer Maternal Grandfather and pro state cancer Heart attack Maternal Grandmother diabete s (?), HLD (?) Diabetes Mother stroke s/p brai n aneurysm (age 78), HTN, HLD, CAD, cataract, glaucoma Alcohol abuse Paternal Grandfather Suicide Attempts Paternal Grandmother Diabetes Uncle maternal HLD; stomach ca ncer (+smoker) Relation Name Status Comments Aunt 1 maternal Aunt 2 maternal Brother x 4 Alive Father Half-Brother x 2 Alive Half-Sister x 2 Alive Maternal Grandfather Maternal Grandmother Mother Paternal Grandfather Paternal Grandmother Uncle maternal Social History Tobacco Use Types Packs/Day Years Used Date Smoking Tobacco: Former Cigarettes Smokeless Tobacco: Never Tobacco Cessation:Counseling Given: Not Answered Comments:Started age 14; max 0.5 PPD; quit [...] Record ed Within the last 3 months, ho w many times did you visit the emergency [...] care for your loved ones. For example, teacher early childhood development or elderly care for an older adult? [...] on file Not on file Obstetrics History * This document contains information received from the source organization and may not represent a complete record from that organization. Para Term AB IAB SAB Ectopic Multiple Livin g Live Births 10 8 8 7 8 Date Outcome GA Total Labor Labor/2nd/3rd Weight Sex Type Anes PTL Stacy A1 A5 Name Clin Term F Term Living Term Living Term Living Term Living Term Living Term Vag-S pont Living Term Vag-S pont Living Last Filed Vital Signs Vital Sign Reading Time Taken Comments Blood Pressure 138/70 12/17/2024 4:57 PM EDT Pulse 80 12/17/2024 4:44 PM EDT Temperature 36.2 C (97.1 F) 12/17/2024 4:41 PM EDT Respiratory Rate 14 12/17/2024 4:41 PM EDT Oxygen Saturation 98% 10/16/2024 1:59 PM EDT Inhaled Oxygen Concentration - - Weight 69.4 kg (153 lb) 12/17/2024 4:41 PM EDT Height 160 cm (5' 3 ) 12/17/2024 4:41 PM EDT Body Mass Index 27.1 12/17/2024 4:41 PM EDT Plan of Treatment Upcoming Encounters Date Type Department Care Team (Late st Contact Info) Description 01/27/2025 2:40 PM EST Office Visit Gastroenterology - [place] [address] [place] [address] Chasity Kruse, ANAHI [address] [facility] [address] [place] [address] 03/05/2025 11:00 AM EST Office Visit Adult Medicine [facility] [address] [place], [place] [phone] Daphne Almanza MD [address] [place], [place] Health Maintenance Due Date Last Done Comments Cervical Cancer Screening: Pap Smear 1981 Zoster Vaccines (1 of 2) 2010 RSV Immunization Adult Patients (1 - Risk 60-74 years 1-dose series) 2020 HIV Screening 03/05/2022 COVID-19 Vaccine (3 - season) 2024 02/11/2021, 06/19/2020 Influenza Vaccine (#1) 2024 , 12/08/2023, 02/06/2023, Additional history exists Social Influencers of Health Screening 08/27/2025 08/27/2024 Breast Cancer Screening 05/20/2026 05/20/19, 05/26/2023, 05/20/2022, Additional history exists Colorectal Cancer Screening: Colonoscopy 07/06/2026 07/06/2021 DTaP,Tdap,and Td Vaccines (3 - Td or Tdap) 05/09/2028 05/09/2018, 07/26/2011 Cholesterol Screening (Lipid Panel) 04/12/2029 04/12/2024, 05/12/2022 MMR Vaccines Aged Out 07/26/2011 No longer eligi ble based on patient's age to complete this topic Hepatitis C Screening Completed 06/11/2018 Pneumococcal Vaccine: 50+ Years Completed 07/18/2024, 05/09/2018 Depression Screening Completed 08/27/2024, 04/05/19 HIB Vaccines Aged Out No longer eligi [...] 10:04 AM EST Pain of both breasts LIPID PANEL WITH REFLEX TO DIRECT LDL Routine 04/12/2024 2:15 PM EST Diverticulosis H/O diverticulitis of colon LLQ pain Elevated liver enzymes Gastroesophageal reflux disease without esophagitis Rectal irritation DEPRESSION SCREENING Routine 04/05/2023 COLONOSCOPY Routine 07/06/2021 HEPATITIS C SCREENING Routine 06/11/2018 from Last 3 Months or Most Recently Relevant to Health Maintenance Results * MG Mammo Digital Diagnostic w Zbigniew bilat (05/20/2024 10:04 AM EST) Anatomical Region Laterality Modality Breast Bilateral Mammography 05/20/2024 10:3 6 AM EST Impressions 05/20/2024 10:43 AM EST No mammographic or sonographic correlate for bilateral breast pain. Further management of symptoms should be clinically based. No mammographic evidence of malignancy in either breast. BREAST DENSITY: B - There are scattered areas of fibroglandular density. BI-RADS CATEGORY: 2 - BENIGN RECOMMENDATION: Clinical management of bilateral breasts is recommended. Screening bilateral mammogram is recommended in 1 year. MAMMO LOCATION: [facility], [address] [place] [address], [id number], . -------- FINAL REPORT -------- Dictated By: Deja Staley Dictated Date: 05/20/2024 10:36 ET Assigned Physician: Deja Staley Reviewed and Electronically Signed By: Deja Staley Signed Date: 05/20/2024 10:43 ET Workstation ID: [id number] Transcribed By: Self Edit Transcribed Date: 05/20/2024 10:36 ET Narrative 05/20/2024 10:43 AM EST EXAM: MG MAMMO DIGITAL DIAGNOSTIC W ZBIGNIEW BILAT, US BREAST LIMITED BILAT HISTORY: Bilateral breast pain. COMPARISON: Mammography as recent as 05/26/2023 and as far back as 01/15/2016 TECHNIQUE: Bilateral mediolateral oblique and craniocaudal views were obtained digitally with 3-D mammogram (digital breast tomosynthesis). Computer-aided detection was utilized in evaluation of this exam (CAD). FINDINGS: No new suspicious mass, architectural distortion, or suspicious calcifications. Patient delineated breast pain in the bilateral retroareolar regions. Sonography was subsequently performed in the retroareolar breasts. No solid or cystic lesion identified. Few prominent retroareolar ducts. Procedure Note Deja Staley [...] is recommended in 1 year. MAMMO LOCATION: [facility], [address] [place] [address], [phone], . -------- FINAL REPORT -------- Dictated By: Deja Staley Dictated Date: 05/20/2024 10:36 ET Assigned Physician: Deja Staley Reviewed and Electronically Signed By: Deja Staley Signed Date: 05/20/2024 10:43 ET Workstation ID: [id number] Transcribed By: Self Edit Transcribed Date: 05/20/2024 10:36 ET us Mavis CORNELIUS IMG BI PROCEDURES Final Resul t * (ABNORMAL) Lipid panel with reflex to direct LDL (04/12/2024 2:15 PM EST) Cholesterol 210(H) 0 - 200 mg/dL LAB CHEMISTRY METHOD 04/12/2024 10:21 PM [facility] Triglycerides 153(H) 0 - 150 mg/dL LAB CHEMISTRY METHOD 04/12/2024 10:21 PM [facility] HDL 46 >=40 mg/dL LAB CHEMISTRY METHOD 04/12/2024 10:21 PM [facility] LDL Calculated 133(H) 0 - 100 mg/dL LAB CHEMISTRY METHOD 04/12/2024 10:21 PM [facility] VLDL Cholesterol Abdiel 30.6 mg/dL LAB CHEMISTRY METHOD 04/12/2024 10:21 PM [facility] Non HDL Chol. (LDL+VLDL) 164(H) <145 mg/dL LAB CHEMISTRY METHOD 04/12/2024 10:21 PM [facility] Chol/HDL Ratio 4.6(H) 0.0 - 4.4 LAB CHEMISTRY METHOD 04/12/2024 10:21 PM [facility] Blood Venous blood specimen / Unknown Venipuncture / Unknown 04/12/2024 2:15 PM EST 04/12/2024 2:15 PM EST us Andrew CORNELIUS LAB BLOOD ORDERABLES Final Resu lt [facility] [address] [place] [address], [place] [phone] * Depression Screening (04/05/2023) Depression Screening Abstracted Historical Provider HEALTH MAINTENANCE Final Result * Colonoscopy (07/06/2021) Colonoscopy No Interpretation , Abstracted Anatomical Region Laterality Modality Other Historical Provider HEALTH MAINTENANCE Final Result * Hepatitis C Screening (06/11/2018) Hepatitis C Screening Abstracted Historical Provider HEALTH MAINTENANCE Final Result from Last 3 Months or Most Recently Relevant to Health Maintenance Insurance [facility] [facility] Care Teams Pasta Maker Relationship Specialty Start Date End Date Daphne Almanza MD [address] [place], [place] PCP - General Internal Medicine 11/30/13
--- OUTSIDE RECORDS SUMMARY | 2024-12-29 21:22 | XMS_ITS | Encounter Summary ---
Author Organization [facility] Address [address] [place] [address] Care Team Providers Care Mobile Lounge Driver Name Role Phone Daphne Almanza MD Primary Care Provider [phone] Daphne Almanza MD Unavailable [phone] Encounter Details Date Type Department Care Team Description 07/09/2021 Orders Only Medical Records [address] [place] [address] Pavan Ozuna MD [address] [facility] [address] [place] [address] Social History Tobacco Use Types Packs/Day Years [...] on filedocumented in this encounter Care Teams Mobile Lounge Driver Relationship Specialty Start Date End Date Daphne Almanza MD [address] [place] [phone] PCP - General Internal Medicine 07/31/15 Daphne Almanza MD [address] [place] [address] 07/29/15 documented as of this encounter
--- OUTSIDE RECORDS SUMMARY | 2024-12-29 21:22 | XMS_ITS | Encounter Summary ---
Author Organization [facility] Address [address] [place] [address] Care Team Providers Care Master Steam Yacht Name Role Phone Daphne Almanza MD Primary Care Provider [phone] Daphne Almanza MD Unavailable [phone] Encounter Details Date Type Department Care Team Description 05/11/2018 Business Doc Medical Records [address] [place] [address] Abstract, Provider Social History Tobacco Use Types [...] on filedocumented in this encounter Care Teams Master Steam Yacht Relationship Specialty Start Date End Date Daphne Almanza MD [address] [place] [address] PCP - General Internal Medicine 07/31/15 Daphne Almanza MD [address] [place] [address] 07/29/15 documented as of this encounter
--- OUTSIDE RECORDS SUMMARY | 2024-12-29 21:22 | XMS_ITS | Encounter Summary ---
Author Organization [facility] Address [address] [place] [address] Care Team Providers Care Mica Washer Gluer Name Role Phone Daphne Almanza MD Primary Care Provider [phone] Daphne Almanza MD Unavailable [phone] Encounter Details Date Type Department Care Team Description 07/08/2016 Manufacturing Coordinator Report Medical Records [address] [place] [phone] Ron Strong MD Social History Tobacco Use [...] on filedocumented in this encounter Care Teams Mica Washer Gluer Relationship Specialty Start Date End Date Daphne Almanza MD [address] [place] [address] [phone] PCP - General Internal Medicine 07/31/15 Daphne Almanza MD [address] [place] [address] [phone] 07/29/15 documented as of this encounter
--- OUTSIDE RECORDS SUMMARY | 2024-12-29 21:22 | XMS_ITS | Encounter Summary ---
Author Organization [facility] Address [address] [place] [address] Care Team Providers Care Calender Machine Operator Helper Name Role Phone Daphne Almanza MD Primary Care Provider [phone] Daphne Almanza MD Unavailable [phone] Encounter Details Date Type Department Care Team Description 05/31/2022 Hospital [facility] [address] [place] [address] [address] [place] [phone] [facility] Social History Tobacco Use Types [...] on filedocumented in this encounter Care Teams Calender Machine Operator Helper Relationship Specialty Start Date End Date Daphne Almanza MD [address] [place] [phone] PCP - General Internal Medicine 07/31/15 Daphne Almanza MD [address] [place] [phone] 07/29/15 documented as of this encounter
--- OUTSIDE RECORDS SUMMARY | 2024-12-29 21:22 | XMS_ITS | Encounter Summary ---
Author Organization [facility] Address [address] [place] [address] Care Team Providers Care Air Compressor Operator Name Role Phone Daphne Almanza MD Primary Care Provider [phone] Daphne Almanza MD Unavailable [phone] Encounter Details Date Type Department Care Team Description 09/13/2016 Transfer Records Medical Records [address] [place] [address] Abstract, Provider Social History Tobacco Use Types [...] filedocumented in this encounter Care Teams Air Compressor Operator Relationship Specialty Start Date End Date Daphne Almanza MD [address] [place] [address] [phone] PCP - General Internal Medicine 07/31/15 Daphne Almanza MD [address] [place] [address] [phone] 07/29/15 documented as of this encounter
--- OUTSIDE RECORDS SUMMARY | 2024-12-29 21:22 | XMS_ITS | Encounter Summary ---
Author Organization [facility] Address [address] [facility] [place] [address] Care Team Providers Care Rate Clerk Passenger Name Role Phone Daphne Almanza MD Primary Care Provider [phone] Daphne Almanza MD Unavailable [phone] Encounter Details Date Type Department Care Team Description 10/13/2020 System Specialist Report Medical Records [address] [place] [address] Jami Padilla MD Social History Tobacco Use [...] on filedocumented in this encounter Care Teams Rate Clerk Passenger Relationship Specialty Start Date End Date Daphne Almanza MD [address] [place] [address] [phone] PCP - General Internal Medicine 07/31/15 Daphne Almanza MD [address] [place] [address] 07/29/15 documented as of this encounter
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
--- OUTSIDE RECORDS SUMMARY | 2024-12-29 21:22 | XMS_ITS | Encounter Summary ---
Author Organization [facility] Address [address] [facility] [place] [address] Care Team Providers Care Hoisting Machine Operator Name Role Phone Daphne Almanza MD Primary Care Provider [phone] Daphne Almanza MD Unavailable [phone] Encounter Details Date Type Department Care Team Description 08/18/2015 Release of Information Medical Records [address] [place] [address] Abstract, Provider Social History Tobacco Use Types [...] on filedocumented in this encounter Care Teams Hoisting Machine Operator Relationship Specialty Start Date End Date Daphne Almanza MD [address] [place] [address] [phone] PCP - General Internal Medicine 07/31/15 Daphne Almanza MD [address] [place] [address] [phone] 07/29/15 documented as of this encounter
--- OUTSIDE RECORDS SUMMARY | 2024-12-29 21:22 | XMS_ITS | Encounter Summary ---
Author Organization [facility] Address [address] [place] [address] Care Team Providers Care Certified Orthotic Fitter Name Role Phone Daphne Almanza MD Primary Care Provider [phone] Daphne Almanza MD Unavailable [phone] Reason for Visit * Reason Comments E-prescribe Rx Request Encounter Details Date Type Department Care Team Description 08/18/2019 Refill Adult Medicine [address] [address] Alexus Farris PA-C E-prescribe Rx Request Social [...] is: Payor: [facility] FFS / Plan[facility] / Product Type: MEDICAID RISK documented in this encounter Plan of Treatment Not on file documented as of this encounter Visit Diagnoses Not on filedocumented in this encounter Care Teams Certified Orthotic Fitter Relationship Specialty Start Date End Date Daphne Almanza MD [address] [place] [address] PCP - General Internal Medicine 07/31/15 Daphne Almanza MD [address] [place] [address] 07/29/15 documented as of this encounter
--- OUTSIDE RECORDS SUMMARY | 2024-12-29 21:22 | XMS_ITS | Encounter Summary ---
Author Organization [facility] Address [address] [place] [address] Care Team Providers Care Hide Dyer Name Role Phone Daphne Almanza MD Primary Care Provider [phone] Daphne Almanza MD Unavailable [phone] Reason for Visit * Reason Onset Date Comments EKG 12/26/2023 Encounter Details Date Type Department Care Team Description 12/26/2023 Telephone Cardio PVCA Diag Testing [address] [place] [address] Daphne Almanza MD [address] [place] [address] [phone] EKG Social History Tobacco Use Types Packs/Day [...] on filedocumented in this encounter Care Teams Hide Dyer Relationship Specialty Start Date End Date Daphne Almanza MD [address] [place] [address] PCP - General Internal Medicine 07/31/15 Daphne Almanza MD [address] [place] [address] 07/29/15 documented as of this encounter
--- OUTSIDE RECORDS SUMMARY | 2024-12-29 21:22 | XMS_ITS | Encounter Summary ---
Author Organization [facility] Address [address] [place] [address] Care Team Providers Care Energy Efficiency Engineer Name Role Phone Daphne Almanza MD Primary Care Provider [phone] Daphne Almanza MD Unavailable [phone] Reason for Visit * Reason Onset Date Comments lab test 09/01/2016 Encounter Details Date Type Department Care Team Description 09/01/2016 Telephone Adult Medicine [address] [address] Kyara Doty NP lab test Social History [...] mailed to the pts home from the director property office ( Ron [place]) This lab order needs to be done at a [facility] lab. It is checking for H pylori. documented in this encounter Plan of Treatment Not on file documented as of this encounter Visit Diagnoses Not on filedocumented in this encounter Care Teams Energy Efficiency Engineer Relationship Specialty Start Date End Date Daphne Almanza MD [address] [place] [address] PCP - General Internal Medicine 07/31/15 Daphne Almanza MD [address] [place] [address] 07/29/15 documented as of this encounter
--- OUTSIDE RECORDS SUMMARY | 2024-12-29 21:22 | XMS_ITS | Encounter Summary ---
Author Organization [facility] Address [address] [place] [address] Care Team Providers Care Stock Control Clerk Name Role Phone Daphne Almanza MD Primary Care Provider [phone] Daphne Almanza MD Unavailable [phone] Encounter Details Date Type Department Care Team Description 09/25/2017 Peeler Operator Report Medical Records [address] [place] [address] Abstract, Provider Social History Tobacco Use Types [...] on filedocumented in this encounter Care Teams Stock Control Clerk Relationship Specialty Start Date End Date Daphne Almanza MD [address] [place] [address] [phone] PCP - General Internal Medicine 07/31/15 Daphne Almanza MD [address] [place] [address] [phone] 07/29/15 documented as of this encounter
--- OUTSIDE RECORDS SUMMARY | 2024-12-29 21:22 | XMS_ITS | Encounter Summary ---
Author Organization [facility] Address [address] [place] [address] Care Team Providers Care South Asian History Professor Name Role Phone Daphne Almanza MD Primary Care Provider [phone] Daphne Almanza MD Unavailable [phone] Reason for Visit * Reason Onset Date Comments Medication 08/14/2016 Encounter Details Date Type Department Care Team Description 08/14/2016 Telephone Adult Urgent Care - [address] [address] Marty Leonard MD [address] [place] [address] Medication Social History Tobacco Use Types Packs/Day [...] encounter Miscellaneous Notes * Telephone Encounter - Silvina Boles - 08/14/2016 11:40 AM EDT What is the name of the medication patient is having a problem with?: ciprofloxacin What is the problem?: needs directions and clarify Is the patient calling about the problem? NO If the patient is not the caller who is[facility] Is this a NEW medication?: YES How long has the patient been taking this medication? Who prescribed this medication for the patient? Dr. Leonard Who is patients PCP?: Daphne Almanza Payor: [facility] MEDICA[facility] / Plan: [facility] MEDICA[facility] HMO $0 WILMER / Product Type: HMO [id number] * Telephone Encounter - Chema Petersen L.P.NKristopher - 08/14/2016 11:40 AM EDT Read directions to pharmacy documented in this encounter Plan of Treatment Not on file documented as of this encounter Visit Diagnoses Not on filedocumented in this encounter Care Teams South Asian History Professor Relationship Specialty Start Date End Date Daphne Almanza MD [address] [place] [address] PCP - General Internal Medicine 07/31/15 Daphne Almanza MD [address] [place] [address] 07/29/15 documented as of this encounter
--- OUTSIDE RECORDS SUMMARY | 2024-12-29 21:22 | XMS_ITS | Encounter Summary ---
Author Organization [facility] Address [address] [place] [address] Care Team Providers Care Quirk Sander Name Role Phone Daphne Almanza MD Primary Care Provider [phone] Daphne Almanza MD Unavailable [phone] Reason for Visit * Reason Onset Date Comments Faxed Order 01/04/2021 Encounter Details Date Type Department Care Team Description 01/04/2021 Telephone Adult Medicine [facility] [address] [place] [address] [phone] Daphne Almanza MD [address] [place] [address] Faxed Order Social History Tobacco Use Types [...] 11:19 AM EDT Fax received from [facility] requesting Dr. Daphne Almanza's signature documented in this encounter Plan of Treatment Not on file documented as of this encounter Visit Diagnoses Not on filedocumented in this encounter Care Teams Quirk Sander Relationship Specialty Start Date End Date Daphne Almanza MD [address] [place] [address] [phone] PCP - General Internal Medicine 07/31/15 Daphne Almanza MD [address] [place] [address] 07/29/15 documented as of this encounter
--- OUTSIDE RECORDS SUMMARY | 2024-12-29 21:22 | XMS_ITS | Encounter Summary ---
Author Organization [facility] Address [address] [place] [address] Care Team Providers Care Implementation Project Manager Name Role Phone Daphne Almanza MD Primary Care Provider Daphne Almanza MD Unavailable [phone] Encounter Details Date Type Department Care Team Description 09/15/2017 Orders Only Adult Medicine [address] [phone] Mavis Osborn PA-C [address] [place] [address] [phone] Social History Tobacco Use Types Packs/Day Years [...] on filedocumented in this encounter Care Teams Implementation Project Manager Relationship Specialty Start Date End Date Daphne Almanza MD [address] [place] [address] [phone] PCP - General Internal Medicine 07/31/15 Daphne Almanza MD [address] [place] [address] 07/29/15 documented as of this encounter
--- OUTSIDE RECORDS SUMMARY | 2024-12-29 21:22 | XMS_ITS | Encounter Summary ---
Author Organization [facility] Address [address] [place] [address] Care Team Providers Care Finish Molder Name Role Phone Daphne Almanza MD Primary Care Provider [phone] Daphne Almanza MD Unavailable [phone] Reason for Visit * Reason Onset Date Comments DME Request 07/14/2021 Encounter Details Date Type Department Care Team Description 07/14/2021 Telephone Pulmonology - [place] [address] [facility] [address] [place] [phone] [facility] [address] [place] [address] DME Request Social History Tobacco Use Types [...] calls please have them call delphine # [phone] * Telephone Encounter - Milagro Ruiz - 07/14/2021 12:17 PM EDT Done faxed order to [facility] for CPAP machine documented in this encounter Plan of Treatment Not on file documented as of this encounter Visit Diagnoses Not on filedocumented in this encounter Care Teams Finish Molder Relationship Specialty Start Date End Date Daphne Almanza MD [address] [place] [address] PCP - General Internal Medicine 07/31/15 Daphne Almanza MD [address] [place] [address] 07/29/15 documented as of this encounter
--- OUTSIDE RECORDS SUMMARY | 2024-12-29 21:22 | XMS_ITS | Encounter Summary ---
Author Organization [facility] Address [address] [place] [address] Care Team Providers Care Merchandise Stocker Name Role Phone Daphne Almanza MD Primary Care Provider [phone] Daphne Almanza MD Unavailable [phone] Encounter Details Date Type Department Care Team Description 10/29/2022 [facility] [address] [place] [phone] Social History Tobacco Use Types Packs/Day Years [...] on filedocumented in this encounter Care Teams Merchandise Stocker Relationship Specialty Start Date End Date Daphne Almanza MD [address] [place] [address] [phone] PCP - General Internal Medicine 07/31/15 Daphne Almanza MD [address] [place] [address] 07/29/15 documented as of this encounter
--- OUTSIDE RECORDS SUMMARY | 2024-12-29 21:22 | XMS_ITS | Encounter Summary ---
Author Organization [facility] Address [address] [place] [address] Care Team Providers Care Head Bucker Name Role Phone Daphne Almanza MD Primary Care Provider [phone] Daphne Almanza MD Unavailable [phone] Reason for Referral * Non CATRACHITA (Routine) - Authorized/Booked Specialty Diagnoses / Procedures Referred By Radha olsen Referred To Contact Endocrinology Diagnoses Thyroid nodule Procedures REFERRAL TO ENDOCRINOLOGY Mavis Osborn PA-C [address] [place] [address] [address] Referral ID Status Reason Start Date Expiration Date V isits Requested Visits Authorized [id number] LTR 05/17 Authorized/ Booked 05/09/2017 05/09/2018 1 1 Encounter Details Date Type Department Care Team Description 05/09/2017 Orders Only Adult Medicine [address] [address] Mavis Osborn PA-C [address] [place] [address] Thyroid nodule Social History Tobacco Use Types [...] goiter documented in this encounter Care Teams Head Bucker Relationship Specialty Start Date End Date Daphne Almanza MD [address] [place] [address] PCP - General Internal Medicine 07/31/15 Daphne Almanza MD [address] [place] [address] 07/29/15 documented as of this encounter
--- OUTSIDE RECORDS SUMMARY | 2024-12-29 21:22 | XMS_ITS | Encounter Summary ---
Author Organization [facility] Address [address] [place] [address] Care Team Providers Care Supervisor Shuttle Fitting Name Role Phone Daphne Almanza MD Primary Care Provider [phone] Daphne Almanza MD Unavailable [phone] Encounter Details Date Type Department Care Team Description 12/08/2020 Orders Only Medical Records [address] [place] [address] Luz Verduzco MD Social History Tobacco Use [...] filedocumented in this encounter Care Teams Supervisor Shuttle Fitting Relationship Specialty Start Date End Date Daphne Almanza MD [address] [place] [address] PCP - General Internal Medicine 07/31/15 Daphne Almanza MD [address] [place] [address] 07/29/15 documented as of this encounter
--- OUTSIDE RECORDS SUMMARY | 2024-12-29 21:22 | XMS_ITS | Encounter Summary ---
Author Organization [facility] Address [address] [place] [address] Care Team Providers Care Camp Dining Room Attendant Name Role Phone Daphne Almanza MD Primary Care Provider [phone] Daphne Almanza MD Unavailable [phone] Encounter Details Date Type Department Care Team Description 09/05/2022 Teacher Report Medical Records [address] [place] [address] Victor Hugo Mckeon PA Social History Tobacco [...] on filedocumented in this encounter Care Teams Camp Dining Room Attendant Relationship Specialty Start Date End Date Daphne Almanza MD [address] [place] [address] PCP - General Internal Medicine 07/31/15 Daphne Almanza MD [address] [place] [address] 07/29/15 documented as of this encounter
--- OUTSIDE RECORDS SUMMARY | 2024-12-29 21:22 | XMS_ITS | Encounter Summary ---
Author Organization [facility] Address [address] [place] [address] Care Team Providers Care Ambulance Officer Name Role Phone Daphne Almanza MD Primary Care Provider [phone] Daphne Almanza MD Unavailable [phone] Encounter Details Date Type Department Care Team Description 08/25/2016 Label Folder Report Medical Records [address] [place] [address] Ron Strong MD Social History Tobacco Use [...] on filedocumented in this encounter Care Teams Ambulance Officer Relationship Specialty Start Date End Date Daphne Almanza MD [address] [place] [address] PCP - General Internal Medicine 07/31/15 Daphne Almanza MD [address] [place] [address] [phone] 07/29/15 documented as of this encounter
--- OUTSIDE RECORDS SUMMARY | 2024-12-29 21:22 | XMS_ITS | Encounter Summary ---
Author Organization [facility] Address [address] [place] [address] Care Team Providers Care Cement Boat And Barge Loader Name Role Phone Daphne Almanza MD Primary Care Provider [phone] Daphne Almanza MD Unavailable [phone] Reason for Visit * Reason Onset Date Comments Prior Authorization 12/12/2022 Cta abd Encounter Details Date Type Department Care Team Description 12/12/2022 Telephone Vascular Surgery - [address] [address] Barry Malagon MD [address] [address] Prior Authorization (Cta abd) Social History Tobacco Use Types Packs/Day Years [...] suspected to have Coronavirus/COVID-19? No / Unsure 12/12/2022 9:14 AM EDT documented as of this encounter Miscellaneous Notes * Telephone Encounter - Komal Fraire - 12/12/2022 1:11 PM EDT Anum auth #[id number] Valid 12/12/22-06/10/23 Order faxed to [facility], notification letter sent to patient. documented in this encounter Plan of Treatment Not on file documented as of this encounter Visit Diagnoses Not on filedocumented in this encounter Care Teams Cement Boat And Barge Loader Relationship Specialty Start Date End Date Daphne Almanza MD [address] [place] [address] [phone] PCP - General Internal Medicine 07/31/15 Daphne Almanza MD [address] [place] [address] [phone] 07/29/15 documented as of this encounter
--- OUTSIDE RECORDS SUMMARY | 2024-12-29 21:22 | XMS_ITS | Encounter Summary ---
Author Organization [facility] Address [address] [place] [address] Care Team Providers Care Recreation Superintendent Name Role Phone Daphne Almanza MD Primary Care Provider [phone] Daphne Almanza MD Unavailable [phone] Reason for Visit * Reason Onset Date Comments pain, chest 09/08/2017 anxiety 09/08/2017 Shortness Of Breath 09/08/2017 Encounter Details Date Type Department Care Team Description 09/08/2017 Telephone Adult Medicine [facility] [address] [place] [address] [phone] Daphne Almanza MD [address] [place] [address] [phone] pain, chest; anxiety; Shortness Of Breath Social [...] eval ,they agreed and will go to [facility] * Telephone Encounter - Anahi Godinez [...] vehicle accident? NO If yes, gather 3rd libertarian insurance information Date of accident/Injury: How long has patient had these symptoms?: Two days PCP: Daphne Almanza Payor: [employer] FFS / Plan: [employer]IANCE / Product Type: MEDICAID RISK documented in this encounter Plan of Treatment Not on file documented as of this encounter Visit Diagnoses Not on filedocumented in this encounter Care Teams Recreation Superintendent Relationship Specialty Start Date End Date Daphne Almanza MD [address] [place] [address] PCP - General Internal Medicine 07/31/15 Daphne Almanza MD [address] [place] [address] 07/29/15 documented as of this encounter
--- OUTSIDE RECORDS SUMMARY | 2024-12-29 21:22 | XMS_ITS | Encounter Summary ---
Author Organization [facility] Address [address] [place] [address] Care Team Providers Care Child Care Coordinator Name Role Phone Daphne Almanza MD Primary Care Provider [phone] Daphne Almanza MD Unavailable [phone] Reason for Visit * Reason Onset Date Comments APPOINTMENT 01/04/2023 Encounter Details Date Type Department Care Team Description 01/04/2023 Telephone Gastroenterology - [place] [address] [facility] [address] [place] [address] Andrew Nino PA-C APPOINTMENT Social History Tobacco Use Types Packs/Day [...] Spoke with patient and rescheduled her on 03/22/23 at 11:30a. Mailed letter * Telephone Encounter [...] SHE IS WAITING For CT scan at [facility], would andrew be willing to call patient back at the end of day, please advise documented in this encounter Plan of Treatment Not on file documented as of this encounter Visit Diagnoses Not on filedocumented in this encounter Care Teams Child Care Coordinator Relationship Specialty Start Date End Date Daphne Almanza MD [address] [place] [address] PCP - General Internal Medicine 07/31/15 Daphne Almanza MD [address] [place] [address] 07/29/15 documented as of this encounter
--- OUTSIDE RECORDS SUMMARY | 2024-12-29 21:22 | XMS_ITS | Encounter Summary ---
Author Organization [facility] Address [address] [facility] [place] [address] Care Team Providers Care Patternmaker Bench Name Role Phone Daphne Almanza MD Primary Care Provider [phone] Daphne Almanza MD Unavailable [phone] Encounter Details Date Type Department Care Team Description 01/18/2017 Transfer Records Medical Records [address] [place] [address] Abstract, Provider Social History Tobacco Use Types [...] on filedocumented in this encounter Care Teams Patternmaker Bench Relationship Specialty Start Date End Date Daphne Almanza MD [address] [place] [address] [phone] PCP - General Internal Medicine 07/31/15 Daphne Almanza MD [address] [place] [address] [phone] 07/29/15 documented as of this encounter
--- OUTSIDE RECORDS SUMMARY | 2024-12-29 21:22 | XMS_ITS | Encounter Summary ---
Author Organization [facility] Address [address] [place] [address] Care Team Providers Care Electric Stove Installer Name Role Phone Daphne Almanza MD Primary Care Provider [phone] Daphne Almanza MD Unavailable [phone] Reason for Referral * Non CATRACHITA (Urgent) - Closed Specialty Diagnoses / Procedures Referred By Radha olsen Referred To Contact Gastroenterology Diagnoses Throat trouble Procedures REFERRAL TO GASTROENTEROLOGY Daphne Almanza MD [address] [place] [address] Gastro [facility]/[address] [address] Referral ID Status Reason Start Date Expiration Date Visits Re quested Visits Authorized [id number] Closed 08/02/2019 08/01/2020 1 1 Reason for Visit * Reason Onset Date Comments Sales Expert Feedback 08/02/2019 Secondary Referr al Request Encounter Details Date Type Department Care Team Description 08/02/2019 Telephone Adult Medicine [address] [phone] Daphne Almanza MD [address] [place] [address] [phone] Sales Expert Feedback (Secondary Referral Request) Social History Tobacco Use Types Packs/Day Years [...] encounter Miscellaneous Notes * Telephone Encounter - Alycia Paz M.A. - 08/02/2019 1:40 PM EDT Left a voicemail for patient to call back the office. * Telephone Encounter - Mavis Osborn PA-C - 08/02/2019 1:03 PM EDT Barium swallow I ordered in Jan 2017 was consistent with trace GERD. Will provide return referral to patient's GI team. Mavis sOborn PA-C * Telephone Encounter - Daphne Almanza MD - 08/02/2019 1:00 PM EDT Pt was seen by Mavis Osborn; send this request to her. * Telephone Encounter - Elenita Jara - 08/02/2019 11:56 AM EDT Your patient was seen by Dr. 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 Pertinent notes, labs and imaging have been received from this specialist and will be scanned into [employer]. Thanks, Elenita Referrals Department documented in this encounter Plan of Treatment Not on file documented as of this encounter Visit Diagnoses Diagnosis Throat trouble- Primary Unspecified disease of pharynx documented in this encounter Care Teams Electric Stove Installer Relationship Specialty Start Date End Date Daphne Almanza MD [address] [place] [address] PCP - General Internal Medicine 07/31/15 Daphne Almanza MD [address] [place] [address] 07/29/15 documented as of this encounter
--- OUTSIDE RECORDS SUMMARY | 2024-12-29 21:22 | XMS_ITS | Encounter Summary ---
Author Organization [facility] Address [address] [place] [address] Care Team Providers Care Satellite Communications Engineer Name Role Phone Daphne Almanza MD Primary Care Provider [phone] Daphne Almanza MD Unavailable [phone] Reason for Visit * Reason Onset Date Comments Headache 02/19/2018 Encounter Details Date Type Department Care Team Description 02/19/2018 Telephone Adult Medicine [facility] [address] [place] [address] [phone] Daphne Almanza MD [address] [place] [address] [phone] Headache Social History Tobacco Use Types Packs/Day [...] visit ,she agreed and will go to [facility] * Telephone Encounter - Kai Whitney - [...] had these symptoms?: PCP: Daphne Almanza Payor: [employer] FFS / Plan: [employer] / Product Type: MEDICAID RISK documented in this encounter Plan of Treatment Not on file documented as of this encounter Visit Diagnoses Not on filedocumented in this encounter Care Teams Satellite Communications Engineer Relationship Specialty Start Date End Date Daphne Almanza MD [address] [place] [address] [phone] PCP - General Internal Medicine 07/31/15 Daphne Almanza MD [address] [place] [address] 07/29/15 documented as of this encounter
[2024-12-29 21:35] LABS: MANUAL DIFF FLAG NO
[2024-12-29 21:36] LABS: Hematocrit 33.2 % (37.0-47.0); Hemoglobin 11.7 g/dl (12.0-16.0); Imm Gran Abs Auto 0.01 X10*3/uL (0.00-0.03); Imm Gran Pct Auto 0.2 % (0.0-0.4); Lymphocytes Absolute Auto 2.3 X10*3/uL (1.2-4.9); Mean Corpuscular HGB Conc 35.2 g/dl (31.0-35.0); Mean Corpuscular Hemoglobin 30.4 pg (27.0-33.0); Mean Corpuscular Volume 86.2 fL (80.0-98.0); NRBC Abs Auto 0.000 X10*3/uL (0.0-0.012); NRBC Pct Auto 0.0 /100WBC (0.0-0.2); Platelet Count 242 X10*3/uL (160-400); Red Blood Count 3.85 X10*6/uL (4.20-5.50); White Blood Count 6.6 X10*3/uL (4.8-10.8)
[2024-12-29 21:49] LABS: Alanine Aminotransferase 17 U/L (0-31); Albumin Level 4.1 g/dL (3.5-5.0); Alkaline Phosphatase 79 U/L (39-117); Anion Gap 11 (12-20); Aspartate Amino Transferase 21 U/L (5-31); Blood Urea Nitrogen 17 mg/dL (9-16); Calcium 8.7 mg/dL (8.4-10.2); Carbon Dioxide 27 mmol/L (22-29); Chloride 107 mmol/L (96-108); Creatinine Clr Calc Pharmacy 67.1; Estimated Glomerular Filt Rate > 60; Magnesium 2.0 mg/dL (1.6-2.6); Potassium 3.8 mmol/L (3.3-5.1); Sodium 141 mmol/L (135-145); Total Protein 7.4 g/dL (6.5-8.0)
[2024-12-30] MEDS: Butalb/Acetamin/Caff 50/325/40 TABLET 1 TAB PO (00:50)
[2024-12-30 00:53] VITALS: BP 171/83; PULSE 57; RESP 16; TEMP 36.6; O2SAT 98
[2024-12-30 04:09] VITALS: BP 150/80; PULSE 63; RESP 16; TEMP 36.5; O2SAT 97
[2024-12-30 04:13] VITALS: BP 150/80; PULSE 63; RESP 16; TEMP 36.5; O2SAT 97
== END 2024-12-30 04:13 | disposition home or self-care (01) ==
PROVIDERS: Physician Assistant; Emergency Provider Emergency Medicine; PCP Internal Medicine
DX: R51.9 Headache, unspecified (principal); M43.6 Torticollis; Z79.899 Other long term (current) drug therapy; Z87.891 Personal history of nicotine dependence
CPT/HCPCS: 36415; 70450; 80053; 83735; 85025; 99284

== ENCOUNTER → 2024-12-29 20:03 | Outpatient (BNV) | payer OTHER, SELFPAY | PROVIDERS: PCP Internal Medicine; Visit Provider Radiology Diagnostic Radiology | DX: R51.9 Headache, unspecified (principal); J32.0 Chronic maxillary sinusitis | CPT/HCPCS: 70450 ==

== ENCOUNTER 2025-01-03 12:51 | Outpatient (AMB) | payer OTHER, SELFPAY ==
[2025-01-03 12:53] VITALS: BP 150/80; PULSE 70; O2SAT 97; BMI 27.1
--- NOTE | 2025-01-03 12:53 | MHC.OFFVIS ---
Vital Signs 01/03/25 12:53 Height 5 ft 3 in Weight 153 lb 0.013 oz BMI 27.1 BP 150/80 H Blood Pressure Location Rt brachial Position Sitting Pulse 70 Pulse Source Pulse Oximeter Pulse Oximetry (%) 97 Oxygen Delivery Method Room Air Intake Visit Reasons: hand pain Intake Note: Patient presents for follow up on osteoarthritis and trigger finger. Advertising Account Representative Name: Terrance Information Interpreted: non-clinical & clinical Accompanied by: Spouse Allergies aspirin (ASA) Allergy (Intermediate, Verified 01/03/25 12:53) NAUSEA & VOMITING, stomach upset, nausea and vomiting pineapple Allergy (Verified 01/03/25 12:53) Itching Medication List - Last Reconciled 01/03/25 by Judy Aguirre MD albuterol sulfate 90 mcg/actuation 2 puffs inhalation Q6H PRN azelastine 2 sprays intranasal BID buspirone 30 mg PO BID spvibspxuz-nttukzzwmrhsp-bwsz 50-300-40 mg (Fioricet) 1 cap PO TID PRN docusate sodium (Colace) 200 mg (2 x 100 mg) PO DAILY eszopiclone 2 mg PO BEDTIME PRN famotidine 20 mg PO BID fluticasone propionate 50 mcg/actuation 1 spray intranasal BID gabapentin 100 mg PO BID hydrocortisone 1% 1 appl topical BID ibuprofen 600 mg PO Q8H PRN ibuprofen 600 mg PO Q8H PRN loratadine 10 mg PO DAILY lorazepam (Ativan) 1 mg PO BID PRN ondansetron 4 mg PO Q6H PRN pantoprazole 40 mg PO DAILY phenazopyridine (Pyridium) 200 mg PO TID PRN 6 doses polyethylene glycol 3350 (Miralax) 17 grams PO DAILY risperidone (Risperdal) 2 mg PO DAILY venlafaxine ER 150 mg PO DAILY HPI Comments Details: Patient is a 64-year-old female with asthma, GERD, chronic mesenteric ischemia, polyarticular osteoarthritis and fibromyalgia here today for follow up Interval History: Patient last seen 02/28/[address] Linares - Not on any rheum medications - She continues to feel about the same. Continues to have some pain in her palms. Triggering of her fingers especially the right middle finger - S/p trigger finger injection Today - Not on any rheum medications - Complaining of bilateral hand pain, sometimes in the AM cannot close her hands Rheumatologic History: Initial history: This is a 62-year-old female with history of fibromyalgia who presents for follow-up. She was was last seen by Dr. Mckinnon 09/2020. About 5 months ago patient has been having bilateral hand pain. She has morning stiffness of her hands lasting approximately 1 hour. It is mostly in her right middle finger. She has tried taking Tylenol and ibuprofen up to 800 mg a day without much relief. She did not notice much swelling. She also has pain in the sole of her toes bilaterally also worse in the morning. She was evaluated by her PCP and prescribed prednisone would provided at least 90% relief. She denies any fevers, weight loss, skin rashes, history of DVT/PE. History of recurrent miscarriages. She is unaware of any family history of an autoimmune rheumatic disease Current Rheumatology Medication(s): [facility] Medical History Carpal tunnel syndrome Asthma Vocal cord anomaly Bloating Acid reflux Surgical History Hx of tubal ligation Social History Household Members Other:: alone Alcohol intake: never Patient Tobacco Use Status: Former Tobacco user Tobacco use type: Cigarette Years Smoked: quit 12 years ago Current occupational status: unemployed Review of Systems Const Details: Review of Systems Constitutional: Denies fever, chills, weight loss ENT: Denies vision changes, eye pain or eye redness, dental caries, dry mouth GI: Denies nausea, vomiting, diarrhea, abdominal pain, change in BM Pulm: Denies SOB, HURT, hemoptysis, wheezing Cards: Denies chest pain, palpitations Skin: Denies Raynaud's, rash, nail changes, photosensitivity, PROPERTY ANALYST: Denies headaches, weakness, paresthesias, recurrent falls MSK: as per HPI All other systems reviewed and are unremarkable except noted above Physical Exam Exam Exam: Vital signs reviewed Physical Examination CONSTITUITIONAL Patient alert and cooperative. Well appearing and in no apparent painful distress MSK Hands Right Hand: Able to make a fist. No swelling or tenderness to palpation of the MCPs, PIPs or DIPs. Fibrotic tendon palpated going to the 3rd digit. Area tender to palpation Left Hand: Able to make a fist. No swelling or tenderness to palpation of the MCPs, PIPs or DIPs. Fibrotic tendon palpated going to the 3rd digit. Area tender to palpation Herbedens nodes noted bilaterally Results Reviewed Results Reviewed: Laboratory Tests 12/29/24 21:31 WBC 6.6 RBC 3.85 L Hgb 11.7 L Hct 33.2 L Plt Count 242 Sodium 141 Potassium 3.8 Chloride 107 Carbon Dioxide 27 BUN 17 H Creatinine 0.78 AST 21 ALT 17 Laboratory Tests 05/11/18 10/23/23 10:55 09:57 Rheumatoid Factor < 13.0 Cycl Citrul Peptide IgG <16 [place] Screen Negative Assessment & Plan Assessment & Plan (1) Trigger finger: Code(s): M65.30 - Trigger finger, unspecified finger Category: Medical Qualifiers: Trigger finger location: middle finger Laterality: right Qualified Code(s): M65.331 - Trigger finger, right middle finger Plan: #Bilateral 3rd digit trigger finger Patient is a 64 year old female with hand OA who presents for evaluation of hand pain. Exam revealed fibrotic flexor tendon going to the 3rd digit bilaterally and it was tender to palpation. At this time she has received 3 steroid injections and further may lead to fibrosis of the tendon and worsening sx. Discussed this with patient and partner that we will need to refer to hand surgery for other procedural options Plan - Refer to hand surgery - Topical diclofenac 1% qid Plan I spent 20 minutes reviewing the record and labs, taking a history, examining the patient, discussing the treatment plan, and documenting in the medical record Orders: Referrals Hand Surgery Referral M65.331 - Trigger finger, right middle finger Medications: New diclofenac sodium 1% apply to bilateral hands Do not use with ibuprofen 4 grams topical QID 100 grams 1RF M19.049 - Primary osteoarthritis, unspecified hand Discontinued ibuprofen Discontinued Reason: Doctor's Order 600 mg PO Q8H PRN 30 tabs 0RF pain ibuprofen Discontinued Reason: Doctor's Order 600 mg PO Q8H PRN 30 tabs 0RF fever or pain Coding Level of Care Code Est Pt Level 3 (58100) Complex EM visit Add On G2211 Diagnoses Trigger middle finger of right hand M65.331 Trigger finger location: middle finger Laterality: right
== END 2025-01-03 13:17 | disposition home or self-care (01) ==
LOC: HO.RHES 12:52
PROVIDERS: PCP Internal Medicine; Visit Provider Student in an Organized Health Care Education/Training Program
DX: M65.331 Trigger finger, right middle finger (principal)
CPT/HCPCS: 99213

== ENCOUNTER → 2025-01-03 12:51 | Outpatient (BNVA) | payer OTHER, SELFPAY | PROVIDERS: PCP Internal Medicine; Visit Provider Student in an Organized Health Care Education/Training Program | DX: M65.331 Trigger finger, right middle finger (principal) | CPT/HCPCS: 99212 ==

== ENCOUNTER 2025-01-04 20:45 | Emergency (ER) | payer OTHER, SELFPAY ==
--- OUTSIDE RECORDS SUMMARY | 2024-01-01 14:30 | XMS_ITS | Encounter Summary ---
Author Organization [facility] Address [address] [place] [address] Care Team Providers Care Construction Recruiter Name Role Phone Daphne Almanza MD Primary Care Provider [phone] Encounter Details Date Type Department Care Team (Late st Contact Info) Description 01/01/2024 2:30 PM EDT Hospital Encounter TH HISTORIC ENCOUNTERS [facility]AST[facility] CONVERSION ONLY Daphne Almanza MD [address] [place], [place] Social History Tobacco Use Types Packs/Day Years Used Date Smoking Tobacco: Former Cigarettes Smokeless Tobacco: Never Comments:Started age 14; max 0.5 PPD; quit age 48 Alcohol Use Standard Drinks/Week Comments No 0 (1 standard drink = 0.6 oz pur e alcohol) Housing Instability Answer Date Recorde d Are you worried that in the next 2 months you may not have stable housing? Patient declined 08/27/2024 Food Access & Nutrition Answer Date Rec orded Do you have access to a vari ety of food including fruits and vegetables? Patient declined 08/27/2024 Access to Healthcare Answer Date Record ed Within the last 3 months, chuckie escalera many times did you visit the emergency department for your medical care? 0 08/27/2024 Health Literacy Answer Date Recorded How often do you need to hav e someone help you when you read instructions, pamphlets, or other written material from your doctor or pharmacy? Patient declined 08/27/2024 Caregiver: How often do you need to have someone help you when you read instructions, pamphlets, or other written material from your doctor or pharmacy? Not on file 025 Financial Risk Answer Date Recorded How hard is it for you to pa y for the very basics like food, housing, medical care, and air conditioning / heating? Patient declined 08/27/2024 Transportation Answer Date Recorded Has the lack of transportati on kept you from meetings, work, or from getting things needed for daily living? Patient declined 08/27/2024 Has the lack of transportati on kept you from medical appointments or from getting medications? Patient declined 08/27/2024 Social Isolation Answer Date Recorded How often do you feel lonely or isolated from those around you? Patient declined 08/27/2024 Food Risk Answer Date Recorded Within the past 12 months we worried whether our food would run out before we got money to buy more. Patient declined 025 Within the past 12 months th e food we bought just didn't last and we didn't have money to get more. Patient declined 05/2024 Dependent Care Answer Date Recorded Do you need help finding or paying for care for your loved ones. For example, registered nurse maternal child or elderly care for an older adult? Patient declined 08/27/2024 Education Answer Date Recorded Do you think completing more education or training, like finishing a GED, going to college, or learning a trade, would be helpful for you? Patient declined 08/27/2024 Employment and Income Answer Date Recor ded During the last four weeks, have you been actively looking for work? Patient declined 08/27/2024 Living Situation Answer Date Recorded What is your living situation? Unrecognized valu e 08/27/2024 Education Answer Date Recorded What is the highest level of school you have completed or the highest degree you have received? 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 Wish to be (Past 1 Month) No 04/17/2024 8:59 PM Jessica Tay RN 2. Non-Specific Active Suicidal Thoughts (Past 1 Month) No 04/17/2024 8:59 PM Jessica Tay RN 6. Suicidal Behavior (Lifetime) No 04/17/2024 8:59 PM Jessica Tay RN documented as of this encounter Plan of Treatment Upcoming Encounters Date Type Department Care Team (Late st Contact Info) Description 01/27/2025 2:40 PM EST Office Visit Gastroenterology - [place] [address] [phone] Chasity Kruse NP [address] [address] 03/05/2025 11:00 AM EST Office Visit Adult Medicine [address] [phone] Daphne Almanza MD [address] [place] [address] documented as of this encounter Visit Diagnoses Not on filedocumented in this encounter Care Teams Construction Recruiter Relationship Specialty Start Date End Date Daphne Almanza MD [address] [place] [address] PCP - General Internal Medicine 11/30/13 documented as of this encounter
[2025-01-04 20:48] VITALS: BP 170/73; PULSE 65; RESP 15; TEMP 36.8; O2SAT 98; BMI 25.8
--- NOTE | 2025-01-04 20:48 | ED.HA ---
HPI - Headache General Chief Complaint: General Medical Stated Complaint: headache, high bp Time Seen by Provider: 01/04/25 22:09 Source: patient, old records reviewed and aerial photograph interpreter Mode of arrival: ambulatory Limitations: language barrier History of Present Illness ED Provider: Dr. Jessica Silveira Related Data Home Medications ?Medication ?Instructions ?Recorded ?Confirmed buspirone 30 mg tablet 30 mg PO BID 03/04/20 01/03/25 famotidine 20 mg tablet 20 mg PO BID 03/04/20 01/03/25 loratadine 10 mg capsule 10 mg PO DAILY 03/04/20 01/03/25 pantoprazole 40 mg tablet,delayed 40 mg PO DAILY 03/04/20 01/03/25 release risperidone 2 mg tablet (Risperdal) 2 mg PO DAILY 10/13/20 01/03/25 gabapentin 100 mg capsule 100 mg PO BID 02/28/24 01/03/25 azelastine 137 mcg (0.1 %) nasal 2 spray intranasal BID 05/01/24 01/03/25 spray eszopiclone 2 mg tablet 2 mg PO BEDTIME PRN insomnia 05/01/24 01/03/25 fluticasone propionate 50 1 spray intranasal BID 05/01/24 01/03/25 mcg/actuation nasal spray,suspension hydrocortisone 1 % topical cream 1 appl topical BID 05/01/24 01/03/25 with perineal applicator venlafaxine 150 mg 150 mg PO DAILY 05/01/24 01/03/25 capsule,extended release 24 hr Previous Rx's ?Medication ?Instructions ?Recorded docusate sodium 100 mg capsule 200 mg (2 x 100 mg) PO DAILY #60 03/27/21 (Colace) caps polyethylene glycol 3350 17 17 g PO DAILY #510 grams 03/27/21 gram/dose oral powder (Miralax) lorazepam 1 mg tablet (Ativan) 1 mg PO BID PRN anxiety #8 tabs 12/16/22 phenazopyridine 200 mg tablet 200 mg PO TID PRN pain 6 doses #6 03/10/24 (Pyridium) tabs albuterol sulfate 90 mcg/actuation 2 puff inhalation Q6H PRN 07/03/24 aerosol inhaler shortness of breath or wheezing #8.5 grams ondansetron 4 mg disintegrating 4 mg PO Q6H PRN nausea and 10/03/24 tablet vomiting #10 tabs dmhlbyknlx-mtkopiyrwwmaj-fyvncqqg 1 cap PO TID PRN headache #10 caps 12/30/24 50 mg-300 mg-40 mg capsule (Fioricet) diclofenac sodium 1 % topical gel 4 g topical QID #100 grams 01/03/25 sumatriptan succinate 50 mg tablet See Rx Instructions .Route 01/04/25 .COMPLEX #14 tabs Allergies Allergy/AdvReac Type Severity Reaction Status Date / Time aspirin (ASA) Allergy Intermediate NAUSEA & Verified 01/04/25 20:49 VOMITING, stomach upset, nausea and vomiting pineapple Allergy Itching Verified 01/04/25 20:49 Review of Systems Review of Systems: as per HPI, full review of systems performed and negative but for the above mentioned pertinent positives and negatives. [facility] Past Medical History Medical History Carpal tunnel syndrome Asthma Vocal cord anomaly Bloating Acid reflux Surgical History Hx of tubal ligation Social History Social History Household Members Other:: alone Alcohol intake: never Patient Tobacco Use Status: Former Tobacco user Tobacco use type: Cigarette Years Smoked: quit 12 years ago Smoked in Last 30 Days: No Use of substances other than those prescribed or required for medical reasons: No Advance Directives: No Advance Directives Information Provided: No Do you have a plan to hurt others: No Plan Patient : No Current occupational status: unemployed Physical Exam Exam: Exam: GENERAL: Ill-Appearing, appears uncomfortable. SKIN: Normal skin color for ethnicity, warm, dry, no rashes noted. HEENT:? Normocephalic, atraumatic, no stridor, dry mucous membranes, dentition intact, EOMI. NECK: Soft, supple, no meningismus, full ROM, midline structures nontender, no step-offs, no deformities, no lymphadenopathy. CHEST: Heart regular rhythm, no murmurs, symmetric chest rise and fall. PULMONARY: Clear to auscultation bilaterally, diminished at the bases, no labored breathing, no wheezes/rhales/rhonchi. ABDOMINAL: Soft, nondistended, nontender, positive bowel sounds in all quadrants. : Deferred. MUSCULOSKELETAL: Normal tone, full range of motion, no deformities, no peripheral edema. NEURO: Alert and oriented x3, CN II through XII intact, equal strength and sensation bilateral upper and lower extremities, no focal neurologic deficits.? PSYCHIATRIC: Flat affect, fluid speech, good eye contact and appropriate demeanor. Vital Signs: Vital Signs: Last Vital Signs Temp 98.3 F 01/04/25 20:48 Pulse 65 01/04/25 20:48 Resp 15 01/04/25 20:48 BP 155/74 H 01/04/25 23:37 Pulse Ox 98 01/04/25 20:48 O2 Del Method Room Air 01/04/25 20:48 BMI result Body Mass Index 25.8 Course Course Course Narrative: This is a Rapid Medical Examination (RME) performed by Damien Hart PA-C in triage. Full HPI, ROS, assessment and treatment plan per primary provider in the Main ED. Hx: 64 yo F hx of fibromyalgia and GERD here for eval of recurring migraines. current migraine w/ assoc photophobia x3 days. reports checking her BP various times today and noted it to be elevated w/ SBP 170-180. no hx of HTN. no vision changes, light headedness, cp. Plan: labs Medications Administered Discontinued Medications Generic Name Dose Route Start Last Admin Trade Name Sherly PRN Reason Stop Dose Admin Diphenhydramine HCl 50 mg 01/04/25 22:11 01/04/25 22:25 Diphenhydramine Hcl 50 Mg/Ml Vial IVPUSH 01/04/25 22:12 50 mg ONCE ONE Administration Lactated Ringer's 1,000 mls @ 999 mls/hr 01/04/25 22:11 01/04/25 22:26 Lr IV 01/04/25 23:11 999 mls/hr .Q1H1M ONE Administration Metoclopramide HCl 10 mg 01/04/25 22:11 01/04/25 22:26 Metoclopramide Hcl 10 Mg/2 Ml Vial IVPUSH 01/04/25 22:12 10 mg ONCE ONE Administration Medical Decision Making Medical Decision Making [facility] Narrative: Patient presents with a chief complaint of headache. ? The differential diagnosis on this patient includes but is not limited to migraine headache, tension headache, cluster headache, subarachnoid hemorrhage, dissection, venous thrombosis, meningitis, sinusitis, bleeding or tumor.? Based on history and physical exam, appropriate work-up was initiated. ? Medicated with reglan, benadryl for headache. Clinical picture is most consistent with a migraine headache. Plan for discharge home with a prescription for sumatriptan. Patient had already been here about 2 weeks ago with similar complaints and was discharged with a Fioricet. She admits that the Fioricet helped her pain when her headache was molar occipital however, it did not help her pain when she had a frontal headache. I encouraged her to follow up with her primary care doctor to have more consistent prescriptions placed. Patient understands and agrees with plan for discharge. Discharged home in stable condition Differential Diagnosis Differential Diagnoses: The differential diagnosis associated with the presentation includes (As above) Admission/Observation Consideration of admission/observation: Escalation of care including admission/observation considered Lab Data MDM Lab Attestation statement: I reviewed the patient's lab results. 01/04/25 20:55 01/04/25 20:55 Labs: Lab Results 01/04/25 Range/Units 20:55 WBC 7.1 (4.8-10.8) X10*3/uL RBC 3.99 L (4.20-5.50) X10*6/uL Hgb 11.9 L (12.0-16.0) g/dl Hct 35.1 L (37.0-47.0) % MCV 88.0 (80.0-98.0) fL MCH 29.8 (27.0-33.0) pg MCHC 33.9 (31.0-35.0) g/dl RDW 13.2 (11.0-16.0) % Plt Count 253 (160-400) X10*3/uL MPV 10.5 (9.4-12.3) fL Immature Gran % (Auto) 0.3 (0.0-0.4) % Neut % (Auto) 51.2 (45-73) % Lymph % (Auto) 37.6 (20-40) % [place] % (Auto) 7.8 (2-11) % Eos % (Auto) 2.4 (0-4) % Baso % (Auto) 0.7 (0-2) % Lymph # (Auto) 2.7 (1.2-4.9) X10*3/uL [place] # (Auto) 0.6 (0.1-1.2) X10*3/uL Eos # (Auto) 0.2 (0.0-0.4) X10*3/uL Baso # (Auto) 0.1 (0.0-0.2) X10*3/uL Abs Immat Gran (auto) 0.02 (0.00-0.03) X10*3/uL Absolute Neuts (auto) 3.6 (2.0-8.3) x10*3/uL Absolute Nucleated RBC 0.000 (0.0-0.012) X10*3/uL Nucleated RBC % (auto) 0.0 (0.0-0.2) /100WBC Sodium 142 (135-145) mmol/L Potassium 3.8 (3.3-5.1) mmol/L Chloride 107 (96-108) mmol/L Carbon Dioxide 27 (22-29) mmol/L Anion Gap 12 (12-20) BUN 18 H (9-16) mg/dL Creatinine 0.94 (0.5-1.4) mg/dL Estim Creat Clear Calc 57.4 Estimated GFR 60 Random Glucose 102 (60-115) mg/dL Calcium 9.0 (8.4-10.2) mg/dL Magnesium 1.9 (1.6-2.6) mg/dL Total Bilirubin 0.1 (0.0-1.0) mg/dL AST 22 (5-31) U/L ALT 23 (0-31) U/L Alkaline Phosphatase 82 (39-117) U/L Total Protein 7.5 (6.5-8.0) g/dL Albumin 4.0 (3.5-5.0) g/dL Independent Historian Clinical information obtained from an independent historian. History obtained from or confirmed by: Other (Daughter) External Record Review External record reviewed: Inpatient record Prescription Management I considered prescription management with: Pain Medication Chronic Conditions Patient?s care impacted by: Other (Fibromyalgia, chronic pain) Social Determinants Patient?s care significantly limited by Social Determinants of Health including: Other Social Determinant of Health Discharge Plan Discharge Clinical Impression: Migraine headache Patient Disposition: Home, Self-Care Instructions: Migraine Headache (ED) Additional Instructions: Your blood work is reassuring. No evidence of infection or electrolyte abnormality. Your head CT from your previous ER visit was normal as well. This is most likely a migraine headache which can be treated with the pain medications. Please follow-up with your primary care doctor as soon as possible. They can write you medications for your headaches that are more penitentiary. You should return to the ER with any new or worsening symptoms including: Worsening headaches despite medications, fevers greater than 100?, any new symptom that concerns you. Call 911 with any medical emergency. Prescriptions: New sumatriptan succinate 50 mg tablet See Rx Instructions .ROUTE .COMPLEX Qty: 14 0RF Rx Instructions: 50 mg orally ;50 mg orally; No Action docusate sodium [Colace] 100 mg capsule 200 mg PO DAILY Qty: 60 0RF polyethylene glycol 3350 [Miralax] 17 gram/dose powder 17 g PO DAILY Qty: 510 0RF phenazopyridine [Pyridium] 200 mg tablet 200 mg PO TID PRN (Reason: pain) Qty: 6 0RF albuterol sulfate 90 mcg/actuation HFA aerosol inhaler 2 puff inhalation Q6H PRN (Reason: shortness of breath or wheezing) Qty: 8.5 0RF otgzukmolo-luncssvlrjgur-xtag [Fioricet] 50-300-40 mg capsule 1 cap PO TID PRN (Reason: headache) Qty: 10 0RF lorazepam [Ativan] 1 mg tablet 1 mg PO BID PRN (Reason: anxiety) Qty: 8 0RF venlafaxine 150 mg capsule,extended release 24hr 150 mg PO DAILY azelastine 137 mcg (0.1 %) spray,non-aerosol 2 spray intranasal BID fluticasone propionate 50 mcg/actuation spray,suspension 1 spray intranasal BID hydrocortisone 1 % cream with perineal applicator 1 appl topical BID eszopiclone 2 mg tablet 2 mg PO BEDTIME PRN (Reason: insomnia) ondansetron 4 mg tablet,disintegrating 4 mg PO Q6H PRN (Reason: nausea and vomiting) Qty: 10 0RF famotidine 20 mg tablet 20 mg PO BID pantoprazole 40 mg tablet,delayed release (DR/EC) 40 mg PO DAILY buspirone 30 mg tablet 30 mg PO BID loratadine 10 mg capsule 10 mg PO DAILY risperidone [Risperdal] 2 mg tablet 2 mg PO DAILY diclofenac sodium 1 % gel 4 g topical QID Qty: 100 1RF Rx Instructions: apply to bilateral hands Do not use with ibuprofen gabapentin 100 mg capsule 100 mg PO BID Print Language: Amharic
[2025-01-04 21:00] LABS: MANUAL DIFF FLAG NO
[2025-01-04 21:01] LABS: Hematocrit 35.1 % (37.0-47.0); Hemoglobin 11.9 g/dl (12.0-16.0); Imm Gran Abs Auto 0.02 X10*3/uL (0.00-0.03); Imm Gran Pct Auto 0.3 % (0.0-0.4); Lymphocytes Absolute Auto 2.7 X10*3/uL (1.2-4.9); Mean Corpuscular HGB Conc 33.9 g/dl (31.0-35.0); Mean Corpuscular Hemoglobin 29.8 pg (27.0-33.0); Mean Corpuscular Volume 88.0 fL (80.0-98.0); NRBC Abs Auto 0.000 X10*3/uL (0.0-0.012); NRBC Pct Auto 0.0 /100WBC (0.0-0.2); Platelet Count 253 X10*3/uL (160-400); Red Blood Count 3.99 X10*6/uL (4.20-5.50); White Blood Count 7.1 X10*3/uL (4.8-10.8)
[2025-01-04 21:17] LABS: Alanine Aminotransferase 23 U/L (0-31); Albumin Level 4.0 g/dL (3.5-5.0); Alkaline Phosphatase 82 U/L (39-117); Anion Gap 12 (12-20); Aspartate Amino Transferase 22 U/L (5-31); Blood Urea Nitrogen 18 mg/dL (9-16); Calcium 9.0 mg/dL (8.4-10.2); Carbon Dioxide 27 mmol/L (22-29); Chloride 107 mmol/L (96-108); Creatinine Clr Calc Pharmacy 57.4; Estimated Glomerular Filt Rate 60; Magnesium 1.9 mg/dL (1.6-2.6); Potassium 3.8 mmol/L (3.3-5.1); Sodium 142 mmol/L (135-145); Total Protein 7.5 g/dL (6.5-8.0)
--- OUTSIDE RECORDS SUMMARY | 2025-01-04 21:27 | XMS_ITS | Clinical Summary ---
Author Organization [facility] [address] [facility] Address [address], [place] Phone Care Team Providers Care Back Sizer Name Role Phone Daphne Almanza MD Primary Care Provider [phone] Allergies Active Allergy Reactions Criticality Noted Date Comments Aspirin 08/14/2015 GI upset with this and Motrin Pineapple 09/30/2020 Throat discomfort with fresh pineapple- oral allergy syndrome Medications fluticasone propionate (FLONASE) 50 mcg/actuation nasal spray INSTILL 1 SPRAY INTO EACH NOSTRIL TWICE A DAY. 48 mL 5 4 Active eszopiclone (LUNESTA) 2 mg tablet 3 Active famotidine (PEPCID) 20 mg tablet Take 1 Tablet by mouth 2 times daily as needed for Heartburn. 3 Active risperiDONE (RisperDAL) 2 mg tablet 6 Active venlafaxine XR (EFFEXOR-XR) 150 mg [...] EAT TO ACTIVATE MEDICATION 180 tablet 4 5 Active fexofenadine (LUANA) 180 mg tablet Take 1 tablet (180 mg total) by mouth 1 (one) time each day. 90 tablet 1 5 Active gabapentin (NEURONTIN) 300 mg capsule Take 1 capsule (300 mg total) by mouth at bedtime. 90 capsule 1 5 Active gabapentin (NEURONTIN) 100 mg capsule Take 1 capsule (100 mg total) by mouth 2 (two) times a day. 180 each 1 5 04/14/19 26 Active azelastine (ASTELIN) 137 mcg (0.1 %) nasal spray INSTILL 1 SPRAY INTO EACH NOSTRIL 2 TIMES A DAY. 30 mL 3 5 Active methocarbamoL (ROBAXIN) 750 mg tablet Take 1 tablet (750 mg total) by mouth at bedtime for 7 days. 7 each 5 Active acetaminophen (TYLENOL 8 HOUR) 650 mg 8 hr tablet INGEE CHARLES ASHWIN ARTHUR AYAZ 4 12/18/19 25 Discontinu ed(Therapy completed) busPIRone (BUSPAR) 30 mg tablet TOME CHARLES LUNA AL D A 3 12/18/19 25 Discontinu ed(Therapy completed) LORazepam (ATIVAN) 0.5 mg tablet JENNYFER LOONEY 3 12/18/19 25 Discontinu ed(Therapy completed) oxyCODONE (OXY-IR) 5 mg immediate release capsule TAKE 1 CAPSULE BY MOUTH EVERY 8 HOURS NEEDED FOR PAIN FOR 3 DAYS 5 12/18/19 25 Discontinu ed(Therapy completed) aluminum-magne sium hydroxide-nicole thicone (MAALOX) 200-200-20 mg/5 mL suspension Take 30 mL by mouth 4 (four) times a day (before meals and nightly). 769 mL 11 5 12/18/19 25 Discontinu ed(Therapy completed) loperamide (Imodium A-D) 2 mg tablet Take 1 tablet (2 mg total) by mouth 4 (four) times a day if needed for diarrhea. 60 tablet 11 5 12/18/19 25 Discontinu ed(Therapy completed) ondansetron (ZOFRAN) 4 mg tablet Take 1 tablet (4 mg total) by mouth 3 (three) times a day. 50 tablet 6 5 12/18/19 25 Discontinu ed(Therapy completed) olopatadine (PATANOL) 0.1 % ophthalmic solution Administer 1 drop into both eyes 2 (two) times a day if needed for allergies. 5 mL 1 5 12/18/19 25 Discontinu ed(Therapy completed) methocarbamoL (ROBAXIN) 500 mg tablet Take 1 tablet (500 mg total) by mouth at bedtime as needed for muscle spasms. 30 tablet 5 12/18/19 25 Discontinu ed(Therapy completed) Active Problems Problem Noted Date Diagnosed Date Diverticulosis 03/08/2024 Seasonal allergies 03/08/2024 Gastroesophageal reflux disease 04/06/2022 Anxiety 04/06/2022 COVID-19 virus infection 11/30/2021 Overview (03/08/2024): 8.28.22 Chronic insomnia 07/13/2021 Hypersomnolence 07/13/2021 Snoring 07/13/2021 Obstructive sleep apnea 05/24/2021 Overview (03/08/2024): [facility] Home sleep test 05/13/2021; weight 155; BMI 27; AHI 6, AI 1, HI 5. 7 obstructive apneas, 1 central apnea and 31 hypopneas. Average oxygen saturation 95% with oxygen graciela 85%. Obstructive sleep apnea-mild with mostly hypopneas and some obstructive and central apneas without nocturnal hypoxemia based on 2021 home sleep test. Fibromyalgia 12/27/2019 Overview (03/08/2024): Dr. Padilla ([facility]) Bilateral carpal tunnel syndrome 05/09/2018 Overview (03/08/2024): S/p release on left side only Overweight (BMI 25.0-29.9) 05/09/2018 Panic attack 05/09/2018 Overview (03/08/2024): Dr. Kumar at [facility] Right ovarian cyst 05/09/2018 Overview (10/16/2024): [...] depression 08/14/2015 Overview (03/08/2024): Dr. Kumar at [facility] Asthma 08/14/2015 GERD (gastroesophageal reflux disease) [...] 4:30 PM EDT Office Visit Adult Medicine [address] [phone] Mavis Osborn PA Cervicogenic headache (Primary Dx) 10/16/2024 2:00 PM EDT Office Visit Adult Medicine [address] [phone] Daphne Almanza MD Acute nonintractable headache, unspecified headache type (Primary Dx); Gastroesophageal reflux disease without esophagitis; Moderate persistent asthma without complication; Fibromyalgia 10/15/2024 Nurse Triage Adult Medicine [address] [phone] Daphne Almanza MD from Last 3 Months [...] eservative (Fluzone; Afluria) 6mo and older 12/08/2023,05/11/2016,03/04/2015 [facility]EN[facility]er[facility]Jeeves SARS-CoV-2 COVID -19, vector-nr, [id number], preservative free [...] : 8.28. 22 Fibromyalgia 12/27/2019 Dr. Padilla ([facility]) Obstructive sleep apnea 05/24/2021 [facility] Home sleep test 05/13/2021; weight 155; [...] 2:40 PM EST Office Visit Gastroenterology - [place] [address] [facility] [address] [facility] [address] [place] [phone] Chasity Kruse, ANAHI [address] [facility] [address] [place] [address] 03/05/2025 11:00 AM EST Office Visit Adult Medicine [facility] [address], [place] [phone] Daphne Almanza MD [address], [place] Health Maintenance Due Date Last Done Comments Cervical Cancer Screening: Pap Smear 1981 Zoster Vaccines (1 of 2) 2010 RSV Immunization Adult Patients (1 - Risk 60-74 years 1-dose series) 2020 HIV Screening 03/05/2022 COVID-19 Vaccine (3 - 2024- season) 2024 02/11/2021, 06/19/2020 Influenza Vaccine (#1) 2024 , 12/08/2023, 02/06/2023, Additional history exists Social Influencers of Health Screening 08/27/2025 08/27/2024 Breast Cancer Screening 05/20/2026 05/20/19 25, 05/26/2023, 05/20/2022, Additional history exists Colorectal Cancer [...] is recommended in 1 year. MAMMO LOCATION: [facility], [address] [place] [address], [id number], . -------- FINAL REPORT -------- Dictated By: Deja Staley Dictated Date: 05/20/2024 10:36 ET Assigned Physician: Deja Staley Reviewed and Electronically Signed By: Deja Staley Signed Date: 05/20/2024 10:43 ET Workstation ID: [id number] Transcribed By: Self Edit Transcribed Date: 05/20/2024 [...] is recommended in 1 year. MAMMO LOCATION: [facility], [address] [place] [address], [id number], . -------- FINAL REPORT -------- Dictated By: Deja Staley Dictated Date: 05/20/2024 10:36 ET Assigned Physician: Deja Staley Reviewed and Electronically Signed By: Deja Staley Signed Date: 05/20/2024 10:43 ET Workstation ID: [id number] Transcribed By: Self Edit Transcribed Date: 05/20/2024 10:36 ET us Mavis CORNELIUS IMG BI PROCEDURES Final Resul t * (ABNORMAL) Lipid panel with reflex to direct LDL (04/12/2024 2:15 PM EST) Cholesterol 210(H) 0 - 200 mg/dL LAB CHEMISTRY METHOD 04/12/2024 10:21 PM EST [facility] Triglycerides 153(H) 0 - 150 mg/dL LAB CHEMISTRY METHOD 04/12/2024 10:21 PM EST [facility] HDL 46 >=40 mg/dL LAB CHEMISTRY METHOD 04/12/2024 10:21 PM EST [facility] LDL Calculated 133(H) 0 - 100 mg/dL LAB CHEMISTRY METHOD 04/12/2024 10:21 PM EST [facility] VLDL Cholesterol Abdiel 30.6 mg/dL LAB CHEMISTRY METHOD 04/12/2024 10:21 PM EST [facility] Non HDL Chol. (LDL+VLDL) 164(H) <145 mg/dL LAB CHEMISTRY METHOD 04/12/2024 10:21 PM EST [facility] Chol/HDL Ratio 4.6(H) 0.0 - 4.4 LAB CHEMISTRY METHOD 04/12/2024 10:21 PM EST [facility] Blood Venous blood specimen / Unknown Venipuncture / Unknown 04/12/2024 2:15 PM EST 04/12/2024 2:15 PM EST us Andrew CORNELIUS LAB BLOOD ORDERABLES Final Resu lt [facility] [address] [place] [address], * Depression Screening (04/05/2023) Depression Screening Abstracted Historical Provider MD HEALTH MAINTENANCE Final Result * Colonoscopy (07/06/2021) Colonoscopy No Interpretation , Abstracted Anatomical Region Laterality Modality Other Historical Provider HEALTH MAINTENANCE Final Result * Hepatitis C Screening (06/11/2018) Hepatitis C Screening Abstracted Historical Provider HEALTH MAINTENANCE Final Result from Last 3 Months or Most Recently Relevant to Health Maintenance Insurance [facility] [employer] Care Teams Back Sizer Relationship Specialty Start Date End Date Daphne Almanza MD [address] [place] [phone] PCP - General Internal Medicine 11/30/13
[2025-01-04] MEDS: Lactated Ringers 1,000 ML 999 ML IV (22:26)
[2025-01-04 23:37] VITALS: BP 155/74; PULSE 62; RESP 16; TEMP 36.6; O2SAT 98
[2025-01-05 00:24] VITALS: BP 155/74; PULSE 62; RESP 16; TEMP 36.6; O2SAT 98
== END 2025-01-05 00:25 | disposition home or self-care (01) ==
PROVIDERS: Physician Assistant Medical; Emergency Provider Emergency Medicine; PCP Internal Medicine
DX: G43.909 Migraine, unspecified, not intractable, without status migrainosus (principal); R11.0 Nausea; Z87.891 Personal history of nicotine dependence; Z79.899 Other long term (current) drug therapy
CPT/HCPCS: 36415; 80053; 83735; 85025; 96361; 96374; 96375; 99284; J1200; J2765; J7120